=== PATIENT | male | born 1950 | race Caucasian/White ===

== ENCOUNTER 2018-06-11 07:23 | Day surgery (SDC) | payer BC, MEDICARE ==
[2018-06-06 10:14] VITALS: BMI 39.5
[2018-06-11 07:50] VITALS: TEMP 97.9
[2018-06-11] MEDS ORDERED: SODIUM CHLORIDE 0.9% 1,000 ML IV ONE (08:01)
[2018-06-11] MEDS ORDERED: fentaNYL (PF) 50 MCG/ML 2 ML AMP ONE (09:49)
[2018-06-11] MEDS ORDERED: MIDAZOLAM 2 MG/2 ML VIAL ONE (09:49)
[2018-06-11] MEDS ORDERED: BENZOCAINE SPRAY 1 CAN MUCOUS MEM ONE ×3 (10:05→10:51)
[2018-06-11] MEDS ORDERED: MIDAZOLAM 2 MG/2 ML VIAL IVP ONE ×4 (10:54)
[2018-06-11] MEDS ORDERED: fentaNYL (PF) 50 MCG/ML 2 ML AMP IVP ONE ×2 (10:55)
[2018-06-11] MEDS ORDERED: SODIUM CHLORIDE 0.9% 1,000 ML IV SCH (11:30)
[2018-06-11 13:08] VITALS: RESP 16
[2018-06-11 13:10] VITALS: BP 121/67; PULSE 85
--- NOTE | 2018-06-11 18:37 | P.PCN ---
Date of Procedure: 06/11/18 Preoperative Diagnosis: Severe aortic stenosis and regurgitation Postoperative Diagnosis: Moderate to severe aortic stenosis, moderate aortic regurgitation Procedure(s) Performed: FAISAL examination Description of Procedure: INDICATION: This is a 67-year-old gentleman with history of congenital aortic stenosis with bicuspid valve was found to have increasing gradient consistent with severe aortic stenosis. Patient is advised to have FAISAL examination for further evaluation CONSENT:. Informed consent was obtained from the patient and family verbally. PROCEDURE: Patient was brought to the lab in fasting state. He was prepped and draped in the usual fashion. The throat was sprayed with Cetacaine. Patient was given a total of 4 mg of Versed in boluses and also fentanyl 75 g. A lubricated Omni probe was then introduced in the oropharynx and advanced into the esophagus after multiple attempts. Images were obtained both from the esophagus and the stomach. Patient tolerated the procedure well. Saline contrast bubble injections were performed. Color and pulse wave Doppler, and also continuous wave Doppler were done. No immediate complications FINDINGS:. The aortic valve appeared to be calcified and bicuspid. Telemetry showed a valve area about 1.26 cm. There is moderate aortic regurgitation. A peak gradient of 60 with mean of 30 was obtained across the aortic valve. There was no clot in left atrial appendage. The interatrial septum appeared to be intact without any shunt. No Sigmund regurgitation noted across the tricuspid valve. Minimal plaque noted in the aorta and mitral valve showed mitral mitral regurgitation. Left ventricular function appeared to be preserved IMPRESSION: #1. Moderate to severe aortic stenosis. #2. Moderate aortic regurgitation #3. Mild mitral regurgitation. #4. No PFO #5. No clot in the left atrial appendage. #5. Preserved LV function #6. Minimal plaque in the aorta PLAN: Continued medical therapy. Consideration for possible cath.
== END 2018-06-11 12:52 | disposition home or self-care (01) ==
LOC: CATHCVL 07:23
PROVIDERS: ATTEND Internal Medicine Cardiovascular Disease
DX: I08.0 Rheumatic disorders of both mitral and aortic valves (principal); I10 Essential (primary) hypertension; E78.5 Hyperlipidemia, unspecified; Z87.891 Personal history of nicotine dependence; J44.9 Chronic obstructive pulmonary disease, unspecified; E66.9 Obesity, unspecified; Z68.41 Body mass index [BMI] 40.0-44.9, adult; Z79.1 Long term (current) use of non-steroidal anti-inflammatories (NSAID); Z79.899 Other long term (current) drug therapy
CPT/HCPCS: 93312; 93320; 93325; J2250; J3010

== ENCOUNTER → 2018-07-11 | Outpatient (CLI) | payer MEDICARE ==
[2018-07-11 13:33] LABS: HCT 46.3 % (39.0-53.0); HGB 14.9 gm/dL (13.0-17.5); MCH 29.4 pg (25.0-35.0); MCHC 32.3 g/dL (31.0-37.0); MCV 91.1 fL (80.0-100.0); Platelet Count 235 k/uL (150-450); RBC 5.08 m/uL (4.30-5.90); RDW 13.3 % (11.5-15.5)
[2018-07-11 13:52] LABS: Anion Gap 7 mmol/L; Blood Urea Nitrogen 24 mg/dL (9-20); Carbon Dioxide 31 mmol/L (22-30); Chloride 104 mmol/L (98-107); Potassium 5.4 mmol/L (3.5-5.1); Sodium 142 mmol/L (137-145)
== END | disposition home or self-care (01) ==
LOC: LABPAT 12:58
PROVIDERS: ATTEND Internal Medicine Cardiovascular Disease
DX: Z01.812 Encounter for preprocedural laboratory examination (principal); I10 Essential (primary) hypertension; E10.9 Type 1 diabetes mellitus without complications; I35.0 Nonrheumatic aortic (valve) stenosis
CPT/HCPCS: 80051; 82565; 84520; 85027

== ENCOUNTER 2018-07-29 08:33 | Inpatient (IN) | payer MEDICARE ==
[2018-07-18 14:31] VITALS: BMI 41.0
[~2018-07-29 08:33] MED LIST: ALPRAZolam 0.25 MG TAB PO PRN; ALPRAZolam 0.5 MG TAB PO PRN; ASPIRIN 325 MG TAB PO STA; ATORVASTATIN 80 MG TAB PO STA; NITROGLYCERIN SL TABS 0.4 MG TAB SUBLINGUAL PRN; SODIUM CHLORIDE 0.9% 1,000 ML in EMPTY BAG 1 BAG IV ONE
[2018-07-29] MEDS ORDERED: LIDOCAINE 1% INJ 10MG/ML (20 ML MDV) ONE (10:15)
[2018-07-29] MEDS ORDERED: fentaNYL (PF) 50 MCG/ML 2 ML AMP ONE (10:15)
[2018-07-29] MEDS ORDERED: MIDAZOLAM 2 MG/2 ML VIAL IV ONE (10:41)
[2018-07-29] MEDS: fentaNYL (PF) 50 MCG/ML 2 ML AMP IV ONE ×2 (10:41→10:48)
[2018-07-29] MEDS ORDERED: LIDOCAINE 1% INJ 10MG/ML (20 ML MDV) SQ ONE (10:45)
[2018-07-29] MEDS ORDERED: ATROPINE SULFATE 0.1 MG/ML 10ML SYRINGE IV ONE (11:00)
[2018-07-29] MEDS ORDERED: DOPamine DRIP 800 MG in DEXTROSE/WATER 1 500ML.BAG IV ONE (11:01)
[2018-07-29 11:06] LABS: O2 Sat Blood Gas 56.7 %
[2018-07-29 11:08] LABS: O2 Sat Blood Gas 97.3 %
[2018-07-29] MEDS ORDERED: NOREPINEPHRINE 4 MG in SODIUM CHLORIDE 0.9% 250 ML IV ONE (11:12)
[2018-07-29] MEDS ORDERED: IOPAMIDOL-370 125ML BTL INJ ONE (11:38)
[2018-07-29] MEDS ORDERED: RX INFO: IV CONTRAST WAS GIVEN 1 EACH MISC MISCELLANE PRN (12:09)
[2018-07-29] MEDS ORDERED: NAPROXEN 250 MG TAB PO PRN (12:10)
[2018-07-29] MEDS: SODIUM CHLORIDE 0.9% 1,000 ML IV SCH (13:21)
[2018-07-29] MEDS: DOPamine DRIP 800 MG in DEXTROSE/WATER 1 500ML.BAG IV SCH (13:30)
[2018-07-29 15:54] LABS: Glucose,Whole Blood 113 mg/dL (75-99)
[2018-07-30 05:15] LABS: Basophils % (A) 0 %; Eosinophils # (A) 0.2 k/uL (0-0.7); Eosinophils % (A) 2 %; HCT 40.2 % (39.0-53.0); HGB 13.5 gm/dL (13.0-17.5); Lymphocytes # (A) 1.6 k/uL (1.0-4.8); Lymphocytes % (A) 17 %; MCH 29.8 pg (25.0-35.0); MCHC 33.6 g/dL (31.0-37.0); MCV 88.5 fL (80.0-100.0); Mean Platelet Volume 7.5; Monocytes # (A) 0.8 k/uL (0-1.0); Monocytes % (A) 8 %; Neutrophils # (A) 6.7 k/uL (1.3-7.7); Neutrophils % (A) 71 %; Platelet Count 213 k/uL (150-450); RBC 4.54 m/uL (4.30-5.90); RDW 13.4 % (11.5-15.5); WBC 9.5 k/uL (3.8-10.6)
[2018-07-30 05:30] LABS: Anion Gap 8 mmol/L; Blood Urea Nitrogen 21 mg/dL (9-20); Calcium 9.2 mg/dL (8.4-10.2); Carbon Dioxide 28 mmol/L (22-30); Chloride 102 mmol/L (98-107); Glucose 101 mg/dL (74-99); Potassium 4.2 mmol/L (3.5-5.1); Sodium 138 mmol/L (137-145)
[2018-07-30] MEDS: SODIUM CHLORIDE 0.9% 1,000 ML IV SCH (07:12)
[2018-07-30] MEDS: VIT A,C & E-LUTEIN-MINERALS 1 EACH TAB PO SCH (12:09)
[2018-07-30] MEDS: DOPamine DRIP 800 MG in DEXTROSE/WATER 1 500ML.BAG IV SCH (12:09)
[2018-07-30] MEDS: ATORVASTATIN 40 MG TAB PO SCH (12:10)
--- NOTE | 2018-07-30 16:09 | PN ---
PROGRESS NOTE Ari presented to hospital for an outpatient catheterization for aortic stenosis, became vasovagal and dropped his blood pressure and heart rate yesterday and required dopamine. This morning, he is doing well. Off dopamine and free of symptoms. Surgeon had evaluated the patient and the plan at this stage is to perform an IVUS to rule out significant left main stenosis prior to surgery. The patient is otherwise on Crestor 20 mg daily, lisinopril 10 mg daily, hydrochlorothiazide, and aspirin. He has been started on Lipitor. EXAM: He is comfortable at rest. Vital signs are stable. Chest exam reveals good air entry bilaterally. Heart exam reveals first and second heart sounds. Ejection systolic murmur in the aortic area. Abdomen is soft. Exam of extremities did not reveal edema. Peripheral pulses are felt. The groin is free of bleeding, bruit or hematoma. LABORATORY DATA: Hemoglobin is 13.5, platelet count is 213. Potassium is 4.2 creatinine is 0.83. ASSESSMENT: 1. Severe aortic stenosis. 2. Coronary artery disease, rule out significant left main stenosis. PLAN: The patient will have aortic valve replacement once the IVUS is done to rule out significant left main stenosis. In the meantime, I am going to transfer him out of ICU. MMODL / IJN: [id number] /
--- NOTE | 2018-07-30 16:55 | P.GSCN ---
History of Present Illness Consult date: 07/30/18 Reason for Consult: Left main disease, severe aortic stenosis. Requesting physician: Cj Leach History of present illness: This is a 67-year-old gentleman who is followed by Dr. Don on an outpatient basis. He has a past medical history significant for known aortic stenosis, hypertension, hyperlipidemia, chronic obstructive pulmonary disease, obesity and remote history of tobacco abuse quit 4 years ago. The patient has been following with Dr. Leach from [facility] for no one aortic valve stenosis. Recently, the patient has had complaints of progressive exertional shortness of breath. He denies any complaints of chest pain, nausea , vomiting, palpitations, syncope or near syncope. On 06/11/2018 the patient underwent a transesophageal echocardiogram which showed a calcified bicuspid aortic valve, an aortic valve area measuring 1.26 cm, moderate aortic valve regurgitation, a peak gradient across his aortic valve of 60 mmHg with a mean gradient of 30 mmHg, mild mitral valve regurgitation and a left ventricular function to be preserved. Subsequently due to the patient's complaints of progressive shortness of breath and his transesophageal echocardiogram results he was recommended to undergo an elective cardiac catheterization. The patient was brought into the hospital for elective cardiac catheterization and after obtaining consent was taken to the cardiac catheterization lab where Dr. Dr. Leach performed a coronary angiogram which showed a questionable lesion to his left main coronary artery and a 70-80% stenosis to his obtuse marginal coronary artery. Due to the patient's symptoms of shortness of breath, transesophageal echocardiogram and cardiac catheterization results a consult was placed to Dr. Mag Enriquez from cardiothoracic surgery to evaluate the patient for myocardial revascularization and aortic valve surgery recommendations. Review of Systems A 14 point review of systems was completed and was negative except as mentioned in the HPI. Past Medical History Past Medical History: Hyperlipidemia, Hypertension Additional Past Medical History / Comment(s): Moderate to severe aortic valve stenosis with a peak gradient of 60 mmHg and a mean gradient of 30 mmHg across the aortic valve and moderate aortic valve regurgitation. Morbid obesity with a BMI of 43.4 kg/m History of Any Multi-Drug Resistant Organisms: None Reported Past Surgical History: Orthopedic Surgery Additional Past Surgical History / Comment(s): ORIF LEFT ANKLE, LACERATION REPAIR OF LEFT FOREARM, RT BREAST I&D, FAISAL 06/11/18, COLONOSCOPY Past Anesthesia/Blood Transfusion Reactions: No Reported Reaction Past Psychological History: No Psychological Hx Reported Smoking Status: Former smoker Past Alcohol Use History: None Reported Additional Past Alcohol Use History / Comment(s): QUIT SMOKING JUN 2014,SMOKED 2 PPD FOR 40 YRS Past Drug Use History: None Reported - Past Family History Mother Family Medical History: Cancer Additional Family Medical History / Comment(s): MOTHER HAD LUNG CANCER Father Family Medical History: No Reported History Medications and Allergies Home Medications Medication Instructions Recorded Confirmed Type Naproxen Sodium [Aleve] 220 mg PO Q12HR PRN 07/07/14 07/29/18 History Hydrochlorothiazide 12.5 mg PO DAILY 06/16/15 07/29/18 History Lisinopril 10 mg PO QAM 06/16/15 07/29/18 History Rosuvastatin Calcium [Crestor] 20 mg PO DAILY 06/16/15 07/29/18 History Vit C/E/Zn/Coppr/Lutein/Zeaxan 1 cap PO DAILY 06/16/15 07/29/18 History [Preservision Areds 2 Softgel] Aspirin 325 mg PO ONCE 07/29/18 07/29/18 History Allergies Allergy/AdvReac Type Severity Reaction Status Date / Time No Known Allergies Allergy Verified 07/29/18 15:26 Surgical - Exam Vital Signs Temp Pulse Resp BP Pulse Ox 97.8 F 83 20 168/76 95 07/29/18 09:13 07/29/18 09:13 07/29/18 09:13 07/29/18 09:13 07/29/18 09:13 - General well developed, well nourished, no distress, no pain, obese - Eyes PERRL, normal ocular movement - ENT normal pinna, normal nares, normal mucosa, no hearing loss, no congestion - Neck Neck is supple, no lymphadenopathy. no masses, no bruits, trachea midline, no venous distension - Respiratory Lung sounds with some expiratory wheezes throughout, diminished to his bilateral bases. Respirations are symmetrical and nonlabored. Oxygen saturation are 95% on room air. - Cardiovascular Regular rhythm and rate. S1-S2 present, positive systolic ejection murmur 2/6. No edema present. Remote telemetry showing normal sinus rhythm heart rate 87. - Abdomen Abdomen is soft, nontender and nondistended. Active bowel sounds all 4 abdominal quadrants. No organomegaly. No guarding or rigidity. - Genitourinary Deferred - Rectum Deferred - Integumentary no rash, no growths, no abnormal pigmentation - Neurologic normal coordination, normal sensation - Musculoskeletal normal gait, normal posture - Psychiatric oriented to time, oriented to person, oriented to place, speech is normal Results - Labs 07/30/18 04:39 07/30/18 04:39 Abnormal Lab Results - Last 24 Hours (Table) 07/30/18 Range/Units 04:39 BUN 21 H (9-20) mg/dL Glucose 101 H (74-99) mg/dL Diabetes panel 07/30/18 Range/Units 04:39 Sodium 138 (137-145) mmol/L Potassium 4.2 (3.5-5.1) mmol/L Chloride 102 (98-107) mmol/L Carbon Dioxide 28 (22-30) mmol/L BUN 21 H (9-20) mg/dL Creatinine 0.83 (0.66-1.25) mg/dL Glucose 101 H (74-99) mg/dL Calcium 9.2 (8.4-10.2) mg/dL Calcium panel 07/30/18 Range/Units 04:39 Calcium 9.2 (8.4-10.2) mg/dL Pituitary panel 07/30/18 Range/Units 04:39 Sodium 138 (137-145) mmol/L Potassium 4.2 (3.5-5.1) mmol/L Chloride 102 (98-107) mmol/L Carbon Dioxide 28 (22-30) mmol/L BUN 21 H (9-20) mg/dL Creatinine 0.83 (0.66-1.25) mg/dL Glucose 101 H (74-99) mg/dL Calcium 9.2 (8.4-10.2) mg/dL Adrenal panel 07/30/18 Range/Units 04:39 Sodium 138 (137-145) mmol/L Potassium 4.2 (3.5-5.1) mmol/L Chloride 102 (98-107) mmol/L Carbon Dioxide 28 (22-30) mmol/L BUN 21 H (9-20) mg/dL Creatinine 0.83 (0.66-1.25) mg/dL Glucose 101 H (74-99) mg/dL Calcium 9.2 (8.4-10.2) mg/dL - Imaging Comments: Transesophageal echocardiogram and cardiac catheterization results were reviewed by Dr. Enriquez and discussed with Dr. Leach. Assessment and Plan (1) Hypertension Current Visit: Yes Status: Acute Code(s): I10 - ESSENTIAL (PRIMARY) HYPERTENSION SNOMED Code(s): 44632041 (2) Hyperlipidemia Current Visit: Yes Status: Acute Code(s): E78.5 - HYPERLIPIDEMIA, UNSPECIFIED SNOMED Code(s): 35726311 (3) Morbid obesity Current Visit: Yes Status: Acute Code(s): E66.01 - MORBID (SEVERE) OBESITY DUE TO EXCESS CALORIES SNOMED Code(s): 366019367 (4) Aortic valve stenosis Current Visit: Yes Status: Acute Code(s): I35.0 - NONRHEUMATIC AORTIC (VALVE ) STENOSIS SNOMED Code(s): 44354562 (5) Coronary artery disease Current Visit: Yes Status: Acute Code(s): I25.10 - ATHSCL HEART DISEASE OF [place] CORONARY ARTERY W/O ANG PCTRS SNOMED Code(s): 25650524 (6) COPD (chronic obstructive pulmonary disease) Current Visit: No Status: Acute Code(s): J44.9 - CHRONIC OBSTRUCTIVE PULMONARY DISEASE, UNSPECIFIED SNOMED Code(s): 95764336 Plan: The patient was seen and examined. His chart and diagnostics were reviewed. Dr. Enriquez met with the patient and his and discussed the findings of the cardiac catheterization and transesophageal echocardiogram results. For further evaluation the patient will undergo a cardiac catheterization with IVUS tomorrow 07/31/2018 to determine if he has a significant blockage to his left main coronary artery. Continue GI and DVT prophylaxis. Continue to maximize medical management, aspirin, statin. Cardiology recommendations per Dr. Dr. Leach. More recommendations to follow based on patient's clinical course and a cardiac catheterization results with IVUS. Thank you Dr. Leach for this consult and we look forward to working with you in the care of your patient. Time with Patient: Greater than 30
[2018-07-30] MEDS ORDERED: SODIUM CHLORIDE 0.9% 1,000 ML BAG ONE (19:45)
[2018-07-30] MEDS ORDERED: ACETAMINOPHEN TAB 500 MG TAB PO PRN (21:57)
--- NOTE | 2018-07-31 03:13 | CONS ---
CONSULTATION DATE OF CONSULTATION: July 30, 2018. REASON FOR CONSULTATION: Medical management requested by Dr. Leach. CONSULTATION: This is a pleasant 67-year-old patient of Dr. Don. Chronic stable medical conditions include hypertension, hyperlipidemia, aortic stenosis, aortic regurgitation, obesity. The patient is in the process of getting worked up, was supposed to have a cardiac cath by Dr. Leach and the patient did become hypotensive, bradycardic. The patient did require dopamine, was admitted to the ICU. Subsequently, the patient's parameters stabilized and he was taken off the dopamine. It was unclear if the patient had any significant stenosis in the left main and cardiothoracic was consulted for the same. The patient does get short of breath with exertion and was a smoker in the past. Denies any edema. No orthopnea. Currently symptom-free. Lying in bed. REVIEW OF SYSTEMS: CONSTITUTIONAL: Tired. HEENT: None. RESPIRATORY: Occasional wheezing. CARDIOVASCULAR: No chest pain. GASTROINTESTINAL: None. GASTROINTESTINAL: None. MUSCULOSKELETAL: Aches and pains in different joints. DERMATOLOGICAL, HEMATOLOGIC, LYMPHATIC: none. PSYCHIATRY none. NEUROLOGICAL: None. PAST MEDICAL HISTORY: Of hypertension, hyperlipidemia, aortic stenosis, aortic regurgitation. PAST SURGICAL HISTORY: ORIF left ankle, laceration to the left forearm, right breast I&D. SOCIAL HISTORY: Patient smoked about 2 packs a day for 40 years, stopped in 2013. No alcohol. . Retired from [employer]. FAMILY HISTORY: Mother had lung cancer. HOME MEDICATIONS: 1. PreserVision 2 soft gel 1 capsule p.o. daily. 2. Crestor 20 mg p.o. daily. 3. Naproxen 220 mg q.12h p.r.n. 4. Lisinopril 10 mg p.o. daily. 5. Hydrochlorothiazide 12.5 p.o. daily. 6. Aspirin. ALLERGIES: None. PHYSICAL EXAMINATION: VITAL SIGNS: Temperature 98.6, pulse 92, respirations 18, blood pressure 133/88. Pulse ox 94 percent on room air. GENERAL APPEARANCE: Well built, BMI 43.4, lying in bed, awake. EYES: Pupils equal. Conjunctivae normal. HEENT: External appearance of nose and ears normal. Oral cavity normal. NECK: JVD not raised. Mass not palpable. RESPIRATORY: Effort normal. LUNGS: Decreased breath sounds. Minimal wheezing. CARDIOVASCULAR: First and second sounds. No edema. ABDOMEN: Soft, nontender. Liver and spleen not palpable. LYMPHATICS: No lymph nodes palpable in the neck and axillae. PSYCHIATRY: Alert and oriented x3. Mood and affect normal. NEUROLOGICAL: Pupils equal. Cranial nerves grossly intact. Power and sensation grossly intact. MUSCULOSKELETAL: Evidence of osteoarthritis especially in the hands. INVESTIGATIONS: White count 9.5, hemoglobin 13.5, potassium 4.2, BUN 21, creatinine 0.83. ASSESSMENT: 1. Moderate aortic stenosis, aortic regurgitation nonrheumatic. 2. Morbid obesity BMI more than 40. 3. Essential hypertension. 4. Hyperlipidemia. 5. Primary osteoarthritis especially of the hands. 6. Chronic obstructive pulmonary disease in an ex-smoker. PLAN: The patient is being scheduled for IVUS tomorrow. Given a strong suspicion for coronary artery disease. Patient NSAIDs will be discontinued. Aspirin as per Cardiology. Care was discussed with the patient. Questions were answered. The patient will be started on DuoNeb. The patient should see a dietitian/PCP for weight loss measures. Questions were answered. Thank you Dr. Leach. Copy to Dr. Don. MMBONNYL / IJN: [id number] /
[2018-07-31 05:40] LABS: HGB 13.8 gm/dL (13.0-17.5); MCH 29.8 pg (25.0-35.0); MCHC 32.9 g/dL (31.0-37.0); MCV 90.5 fL (80.0-100.0); Mean Platelet Volume 7.6; Platelet Count 208 k/uL (150-450); RBC 4.64 m/uL (4.30-5.90); RDW 13.3 % (11.5-15.5); WBC 8.1 k/uL (3.8-10.6)
[2018-07-31 06:01] LABS: Anion Gap 10 mmol/L; Blood Urea Nitrogen 20 mg/dL (9-20); Calcium 9.4 mg/dL (8.4-10.2); Carbon Dioxide 25 mmol/L (22-30); Chloride 104 mmol/L (98-107); Glucose 105 mg/dL (74-99); Potassium 4.3 mmol/L (3.5-5.1); Sodium 139 mmol/L (137-145)
[2018-07-31] MEDS: IPRATROPIUM-ALBUTEROL 3 ML NEB INHALATION SCH ×4 (08:24→19:45)
[2018-07-31] MEDS: ATORVASTATIN 40 MG TAB PO SCH (08:51)
[2018-07-31] MEDS: VIT A,C & E-LUTEIN-MINERALS 1 EACH TAB PO SCH (08:51)
[2018-07-31] MEDS: SODIUM CHLORIDE 0.9% 1,000 ML IV SCH ×2 (08:55→23:29)
--- NOTE | 2018-07-31 08:56 | P.PN ---
Subjective Progress Note Date: 07/31/18 Principal diagnosis: Severe aortic stenosis with bicuspid aortic valve, coronary artery disease with possible left main disease. Previous medical history of hypertension, hyperlipidemia, COPD, obesity, remote tobacco dependence. Patient is currently lying in bed in no acute distress. Denies pain, shortness of breath. No new questions at this time. Anticipating return to the Utilization Review Nurse today for IVUS. Objective - Vital Signs Vital signs: Vital Signs Temp 98.2 F 07/31/18 04:00 Pulse 68 07/31/18 04:00 Resp 22 07/31/18 04:00 BP 137/84 07/31/18 04:00 Pulse Ox 94 L 07/31/18 04:00 Intake & Output 07/30/18 07/31/18 07/31/18 18:59 06:59 18:59 Intake Total 420 600 Output Total 1850 1000 Balance -1430 -400 Weight 129 kg Intake: IV 600 Sodium Chloride 0.9% 1, 600 000 ml @ 75 mls/hr IV . [id number] TAYO Rx#:[id number] Oral 420 Output: Urine 1850 1000 Other: Voiding Method Urinal Urinal # Voids 1 - Constitutional General appearance: Present: cooperative, no acute distress, obese - Respiratory Details: Lungs sounds diminished bilaterally. Respirations even, nonlabored. Currently on room air with oxygen saturation 94%. - Cardiovascular Details: S1, S2 present. Positive systolic murmur. Regular rate and rhythm, sinus rhythm to sinus bradycardia on telemetry. Palpable peripheral pulses bilaterally. No edema present. No calf pain or tenderness noted. - Gastrointestinal Gastrointestinal Comment(s): Abdomen soft, nontender, nondistended, obese. Active bowel sounds present 4 quadrants. Tolerating diet, currently nothing by mouth for Utilization Review Nurse. - Genitourinary Genitourinary Comment(s): Continues to void clear, yellow urine. - Integumentary Integumentary Comment(s): Skin is warm and dry with evidence of good perfusion. - Neurologic Neurologic: Present: CNII-XII intact - Musculoskeletal Musculoskeletal: Present: gait normal, strength equal bilaterally - Psychiatric Psychiatric: Present: A&O x's 3, appropriate affect, intact judgment & insight - Allied health notes Allied health notes reviewed: nursing - Labs CBC & Chem 7: 07/31/18 04:35 07/31/18 04:35 Labs: Abnormal Lab Results - Last 24 Hours (Table) 07/31/18 Range/Units 04:35 Glucose 105 H (74-99) mg/dL Assessment and Plan (1) Aortic valve stenosis Current Visit: Yes Status: Chronic Code(s): I35.0 - NONRHEUMATIC AORTIC ( VALVE) STENOSIS SNOMED Code(s): 32834925 (2) Coronary artery disease Current Visit: Yes Status: Chronic Code(s): I25.10 - ATHSCL HEART DISEASE OF [place] CORONARY ARTERY W/O ANG PCTRS SNOMED Code(s): 09630645 (3) Hyperlipidemia Current Visit: Yes Status: Chronic Code(s): E78.5 - HYPERLIPIDEMIA, UNSPECIFIED SNOMED Code(s): 96572806 (4) Hypertension Current Visit: Yes Status: Chronic Code(s): I10 - ESSENTIAL (PRIMARY) HYPERTENSION SNOMED Code(s): 03210387 (5) Morbid obesity Current Visit: Yes Status: Chronic Code(s): E66.01 - MORBID (SEVERE) OBESITY DUE TO EXCESS CALORIES SNOMED Code(s): 684506349 (6) COPD (chronic obstructive pulmonary disease) Current Visit: Yes Status: Chronic Code(s): J44.9 - CHRONIC OBSTRUCTIVE PULMONARY DISEASE, UNSPECIFIED SNOMED Code(s): 19003791 (7) Tobacco dependence in remission Current Visit: No Status: Resolved Code(s): F17.201 - NICOTINE DEPENDENCE, UNSPECIFIED, IN REMISSION SNOMED Code(s): 671295360 Plan: 1. Patient will need aortic valve replacement. Will await IVUS results to determine if he needs coronary artery bypass in as well. 2. Continue to maximize medical therapy with aspirin, statin. 3. Preoperative teaching initiated, continue to reinforce. 4. Will initiate preoperative testing once results of IVUS are known. 5. Cardiology management per Dr. Leach, primary care management per Dr. Sexton. 6. More recommendations to follow. Time with Patient: Greater than 30
[2018-07-31] MEDS ORDERED: SODIUM CHLORIDE 0.9% 1,000 ML in EMPTY BAG 1 BAG IV ONE (09:26)
[2018-07-31] MEDS ORDERED: ASPIRIN 325 MG TAB PO STA (09:30)
[2018-07-31] MEDS ORDERED: LIDOCAINE 1% INJ 10MG/ML (20 ML MDV) ONE (09:47)
[2018-07-31] MEDS ORDERED: ASPIRIN 325 MG TAB ONE (09:50)
[2018-07-31] MEDS ORDERED: ASPIRIN 325 MG TAB PO ONE (09:52)
[2018-07-31] MEDS ORDERED: IV FLUID CONTINUATION 300 ML IV ONE (09:55)
[2018-07-31] MEDS ORDERED: SODIUM CHLORIDE 0.9% 1,000 ML IV ONE (09:58)
[2018-07-31] MEDS ORDERED: MIDAZOLAM 2 MG/2 ML VIAL IVP ONE (10:24)
[2018-07-31] MEDS ORDERED: HEPARIN SODIUM 1,000 UN/ML (10ML VL) ONE (10:27)
[2018-07-31] MEDS: LIDOCAINE 1% INJ 10MG/ML (20 ML MDV) SQ ONE ×2 (10:27→11:26)
[2018-07-31] MEDS ORDERED: fentaNYL (PF) 50 MCG/ML 2 ML AMP ONE (10:31)
[2018-07-31] MEDS: fentaNYL (PF) 50 MCG/ML 2 ML AMP IV ONE ×2 (10:32→11:24)
[2018-07-31] MEDS: NITROGLYCERIN 1000MCG/10ML SYRINGE INTRACORON ONE ×4 (10:35→11:27)
[2018-07-31] MEDS ORDERED: HEPARIN SODIUM 1,000 UN/ML (10ML VL) IV ONE (10:38)
[2018-07-31] MEDS ORDERED: IOPAMIDOL-370 100ML BTL INJ ONE ×2 (11:17→11:25)
[2018-07-31] MEDS ORDERED: ATROPINE SULFATE 0.1 MG/ML 10ML SYRINGE IVP ONE ×2 (11:34)
--- NOTE | 2018-07-31 11:53 | P.CARDCATH ---
Date of Procedure: 07/29/18 Preoperative Diagnosis: Moderate to severe aortic stenosis. Rule out coronary artery disease Postoperative Diagnosis: The same Procedure(s) Performed: Left heart catheterization without left ventriculography and also right heart catheterization. Description of Procedure: T HISTORY: This is a 67-year-old gentleman with history of aortic stenosis was found to have evidence of moderate to severe aortic stenosis. Recently patient was found to have increasing gradient across the aortic valve. A FAISAL examination was performed which revealed an valve area of about 1.2 cm with a peak gradient of 60 and mean of about 30 suggestive of severe aortic stenosis. Patient has been complaining of exertional shortness of breath. In view of that patient is advised to have cardiac catheterization to assess and the aortic stenosis and also to rule out any concomitant coronary artery disease.] CONSENT:I have discussed the risks, benefits and alternative therapies for the above-mentioned procedure and for both sedation/analgesia as well as necessary blood product administration, if indicated, as they pertain to this patient. The patient has indicated understanding and acceptance of the risks and procedures discussed. PROCEDURE: Right heart catheterization: Patient was prepped and draped in the usual fashion. The right groin is infiltrated with lidocaine. Right femoral vein was entered using Seldinger technique and a 6-Bulgarian sheath was left in place. Right heart catheterization was performed using Yomi catheters. Patient tolerated the procedure well. : Left heart catheterization: Patient was brought to the lab in a fasting state. Patient was given some IV sedation. The right groin is infiltrated with lidocaine and right femoral artery was entered using Seldinger technique. A 6-Bulgarian catheter was left in place and selective coronary arteriography was performed. Attempts were made to cross the aortic valve which were unsuccessful. Patient tolerated the procedure well except patient becomes hypotensive and bradycardic secondary to vasovagal reaction Femoral angiogram was performed and Angio-Seal was applied for hemostasis. Patient became hypotensive after giving IV sedation and also introduction of the femoral sheaths. It was felt that patient was having vasovagal reaction. Patient was also complaining of pain in the left arm and moaning and groaning. Patient was given IV fluids, IV dopamine and also Levophed for blood pressure support. Patient became hemodynamically stable after the above interventions. 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 Patient ever had any EKG changes, her chest pains. Conscious Sedation: Versed 1 mg Fentanyl 50 g Duration 50 minutes HEMODYNAMICS: Right heart catheterization: Right atrial pressure was 5-10. Right ventricular pressure is about 40/6. Pulmonary artery pressure was about 40/10 and pulmonary wedge pressure was about 10-12. The cardiac output by thermodilution method was 3.67 and by Jeimy method was 3.41. Left heart catheterization: The arterial pressure was about 140/70 initially. Patient subsequently became hypotensive with systolic blood pressures of 60-70. The after IV fluids and IV dopamine and also Levophed the pressures came up. The aortic valve could not be crossed SELECTIVE CORONARY ARTERIOGRAPHY: LEFT MAIN: Short. There is ventricularization of the pressures upon engagement of the left main. There appears to be eccentric 50-60 % stenosis of the left main. However spasm cannot be excluded. THE LEFT ANTERIOR DESCENDING CORONARY ARTERY: This is a moderate caliber vessel giving rise to 2 diagonal branches and septal branches. There appears to be total occlusion of the distal LAD. There are collaterals from the right to the LAD THE LEFT CIRCUMFLEX AND IS CORONARY ARTERY: This is a moderate caliber vessel giving rise to a high OM branch. The OM branch has about 70% stenosis in the midportion THE RIGHT CORONARY ARTERY:. This is a good caliber vessel with about 30-40% plaque in the proximal portion. He uses good-sized PDA and PLV branches and also provides collaterals to the LAD LEFT VENTRICULOGRAPHY: Not performed FINAL IMPRESSION:. #1. Coronary artery disease with about 50-50% stenosis of the left main. The possibility of the spasm cannot be excluded. Needs to have IVUS for further evaluation #2. About 70% stenosis of the OM branch #3. There appears to be total occlusion of the mid LAD with collateral from the right coronary system #4. Moderate to severe aortic stenosis by FAISAL examination associated with moderate aortic regurgitation PLAN: IVUS of the left main for further evaluation. He will the left main disease is significant, patient will need bypass surgery with the graft to the LAD diagonal OM branch and distal circumflex and the aortic valve replacement PROGNOSIS: Guarded
--- NOTE | 2018-07-31 12:28 | CC ---
CARDIAC CATHETERIZATION REPORT DATE OF SERVICE: 07/31/2018 PROCEDURE: 1. Coronary angiography. 2. Intravascular ultrasound of left main and ramus intermedius. PERFORMED BY: Dr. Marii Van. Moderate conscious sedation time was 64 minutes. Patient was administered fentanyl, Versed and his oxygen saturation, hemodynamics and EKG were monitored closely. CLINICAL INFORMATION: Mr. Ari Johnson is a gentleman with history of hypertension, bicuspid aortic valve with moderate aortic stenosis, who underwent cardiac cath 48 hours ago. There was a question of left main lesion. He did have a significant lesion in the ramus intermedius and there were some collaterals going to the distal LAD, which was somewhat unclear. He was advised to have coronary angiography and more importantly an IVUS to assess the left main lesion with regards to decision for surgery. I saw the patient and family yesterday and discussed with them at length the rationale, risks, benefits, options. They understood all details and wished to proceed with the procedure. PROCEDURE NOTE: Under local anesthesia and strict aseptic precautions, a 6-Vietnamese introducer was placed in the right femoral artery. I used a JL4 short tip guide catheter of 6-Vietnamese caliber to cannulate the left coronary artery. There was no damping noted. I performed initial injections, which did not reveal that the left main was significant. There was no more than 20% distal left main lesion. I then advanced under fluoroscopic guidance after administration of 5000 units of heparin and intracoronary nitroglycerin and a run- through wire was advanced and positioned in the distal portion of the ramus intermedius and an intravascular ultrasound was performed of both the ramus and the left main vessels. I then noted that the left main lesion was significant with a minimal area in the left main distally of about 2.8 millimeter square. There was also a significant lesion in the midportion of the ramus as well. This was about 1.6 to 1.7 millimeter square. I then performed selective coronary angiography of the right coronary artery and noted that there was collaterals going in the LAD distribution. I went back and retook the pictures of LAD with somewhat of a long injection. This suggested that there was a total occlusion of mid LAD that was filling by collaterals from the RCA. The patient tolerated the procedure well, but towards the end after I took the sheath out and placed a Perclose device to secure hemostasis. He had good hemostasis but went on to become vasovagal requiring some IV fluids and atropine. The blood pressure came back to 120/70, heart rate was in the 80s and he was back to normal. He was sent to the room in a stable condition. Findings were discussed in detail with the patient and and he will require surgery because of the branch of the left main including LAD, ramus and circumflex as well. CORONARY ANGIOGRAPHY FINDINGS: Left Main Coronary Artery: This had a significant stenosis based on IVUS of up to 60%. It bifurcated into LAD and circumflex and the circumflex gave off a high obtuse marginal which almost looks like a ramus intermedius. There was a significant stenosis involving the ramus intermedius of about 80%. The LAD in the midportion was occluded after septal and diagonal branch. It appears that beyond the total occlusion, LAD is a small caliber vessel which was seen coming as a collateral from the RCA. Circumflex did not have any significant disease after the high obtuse marginal/ramus, which has a significant lesion. The [place] RCA was also injected with a diagnostic catheter and this revealed a plaque of about 40% in the proximal portion. Distally it was a large vessel, which bifurcated into PDA, PLV, and provides collaterals to the distal LAD. RECOMMENDATIONS: Given the significant left main and total occlusion of mid LAD, I am recommending aortocoronary bypass surgery to LAD, circumflex and ramus intermedius, which has an independent lesion. RCA does not need to be grafted. Findings were discussed with the patient and and he was sent to the room in a stable condition. MMODL / IJN: [id number] / MTDD
[2018-07-31] MEDS: METOPROLOL TARTRATE 12.5 MG TAB PO SCH ×2 (12:54→20:43)
--- NOTE | 2018-07-31 16:49 | PN ---
PROGRESS NOTE DATE OF SERVICE: July 31, 2018. PRESENTING COMPLAINT: Tired. INTERVAL HISTORY: This patient with multiple medical problems initially came for cardiac catheterization, had a repeat cardiac catheterization by Dr. Marii Van today. Found to have significant coronary artery disease, now pending a consultation by Cardiothoracic for further evaluation. The patient has known aortic stenosis and regurgitation. Lying in bed, stable. Breathing is stable. REVIEW OF SYSTEMS: Done for constitutional, cardiovascular, GI, pulmonary; relevant findings as above. CURRENT MEDICATIONS: Reviewed that include aspirin, DuoNeb, Lipitor, Lopressor. PHYSICAL EXAMINATION: VITAL SIGNS: Temperature 98, pulse 90, respiration 21, blood pressure 125/81, pulse ox 94 percent on room air. GENERAL APPEARANCE: Lying in bed, awake. EYES: Pupils are equal. Conjunctivae normal. NECK: JVD not raised. Mass not palpable. RESPIRATORY: Effort increased. LUNGS: Decreased breath sounds, minimal wheezing. CARDIOVASCULAR: First and second sounds normal. No edema. Systolic murmur. ABDOMEN: Soft, nontender. Liver and spleen not palpable. PSYCHIATRY: Alert and oriented x3. Mood and affect normal. INVESTIGATIONS: White count 8.1, hemoglobin 13.8, potassium 4.3. BUN and creatinine is normal. ASSESSMENT: 1. Moderate aortic stenosis and aortic regurgitation nonrheumatic. 2. Coronary artery disease per cardiac cath. Awaiting evaluation for coronary bypass. 3. Morbid obesity, BMI more than 40. 4. Essential hypertension. 5. Hyperlipidemia. 6. 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 7. Chronic obstructive pulmonary disease in an ex-smoker. PLAN: Care was discussed with the patient. Await further evaluation by Cardiothoracic surgery. Follow. MMODL / IJN: [id number] /
[2018-07-31 18:29] LABS: Appearance,Urine Clear (Clear); Bilirubin,Urine Negative (Negative); Blood,Urine Negative (Negative); Color,Urine Light Yellow; Glucose,Urine (UA) Negative (Negative); Ketones,Urine Negative (Negative); Leukocyte Esterase,Urine Negative (Negative); Nitrite,Urine Negative (Negative); PH, Urine 7.5 (5.0-8.0); Protein,Urine Negative (Negative); Specific Gravity,Urine 1.018 (1.001-1.035); Urobilinogen,Urine <2.0 mg/dL (<2.0)
--- NOTE | 2018-07-31 20:26 | XR ---
EXAMINATION TYPE: XR chest 2V DATE OF EXAM: 07/31/2018 COMPARISON: NONE HISTORY: Preop cardiac surgery TECHNIQUE: Frontal and lateral views of the chest are obtained. FINDINGS: There is no heart failure nor confluent pneumonic infiltrate. Costophrenic angles are kelle r. There are chest leads. Bony thorax is intact. IMPRESSION: No active cardiopulmonary disease. Normal heart.
--- NOTE | 2018-07-31 20:40 | US ---
EXAMINATION TYPE: US carotid duplex BILAT DATE OF EXAM: 07/31/2018 COMPARISON: NONE CLINICAL HISTORY: preop cardiac surgery. Pre op [place]. EXAM MEASUREMENTS: RIGHT: Peak Systolic Velocity (PSV) cm/sec ----- Right CCA: 75.5 ----- Right ICA: 82.0 ----- Right ECA: 116.1 ICA/CCA ratio: 1.1 RIGHT: End Diastole cm/sec ----- Right CCA: 18.1 ----- Right ICA: 27.3 ----- Right ECA: 29.4 LEFT: Peak Systolic Velocity (PSV) cm/sec ----- Left CCA: 80.6 ----- Left ICA: 90.3 ----- Left ECA: 96.8 ICA/CCA ratio: 1.1 LEFT: End Diastole cm/sec ----- Left CCA: 20.8 ----- Left ICA: 30.5 ----- Left ECA: 22.5 VERTEBRALS (direction of flow): Right Vertebral: Antegrade Left Vertebral: Antegrade Rhythm: Normal No significant stenosis seen IMPRESSION: There is antegrade flow in the vertebral arteries. The images measurements suggest less than 20% stenosis in both internal carotid arteries. Criteria for Assigning % of Stenosis / Diameter reduction (Estimation based on the indirect measurements of the internal carotid artery velocities (ICA PSV). 1. Normal (no stenosis)=ICA PSV < 125 cm/s: ratio < 2.0: ICA EDV<40 cm/s. 2. Less than 50% stenosis=ICA PSV < 125 cm/s: ratio < 2.0: ICA EDV<40 cm/s. 3. 50 to 69% stenosis=ICA PSV of 125 to 230 cm/s: ration 2.0 ? 4.0: ICA EDV 40-100 cm/s. 4. Greater than 70% stenosis to near occlusion= ICA PSV > 230 cm/s: ratio > 4.0: ICA EDV > 100 cm/s. 5. Near occlusion= ICA PSV velocities may be low or undetectable: variable ratio and ICA EDV. 6. Total occlusion=unable to detect flow.
[2018-08-01 04:39] VITALS: TEMP 98.2
[2018-08-01 06:07] LABS: Basophils % (A) 1 %; Eosinophils # (A) 0.5 k/uL (0-0.7); Eosinophils % (A) 6 %; HCT 39.7 % (39.0-53.0); Lymphocytes # (A) 1.6 k/uL (1.0-4.8); Lymphocytes % (A) 22 %; MCH 29.6 pg (25.0-35.0); MCHC 32.7 g/dL (31.0-37.0); MCV 90.5 fL (80.0-100.0); Mean Platelet Volume 7.4; Monocytes # (A) 0.5 k/uL (0-1.0); Monocytes % (A) 7 %; Neutrophils # (A) 4.6 k/uL (1.3-7.7); Neutrophils % (A) 62 %; Platelet Count 178 k/uL (150-450); RBC 4.38 m/uL (4.30-5.90); RDW 13.2 % (11.5-15.5); WBC 7.4 k/uL (3.8-10.6)
[2018-08-01 06:34] LABS: ALT 41 U/L (21-72); AST 29 U/L (17-59); Albumin 3.7 g/dL (3.5-5.0); Alkaline Phosphatase 50 U/L (38-126); Anion Gap 6 mmol/L; Blood Urea Nitrogen 20 mg/dL (9-20); Calcium 9.2 mg/dL (8.4-10.2); Carbon Dioxide 26 mmol/L (22-30); Chloride 107 mmol/L (98-107); Cholesterol 182 mg/dL (<200); Glucose 114 mg/dL (74-99); HDL Cholesterol 45 mg/dL (40-60); LDL Cholesterol,Calculated 96 mg/dL (0-99); Magnesium 2.1 mg/dL (1.6-2.3); Phosphorus 4.3 mg/dL (2.5-4.5); Sodium 139 mmol/L (137-145); Total Bilirubin 0.6 mg/dL (0.2-1.3); Total Protein 6.3 g/dL (6.3-8.2); Triglycerides 203 mg/dL (<150)
[2018-08-01 08:09] VITALS: BP 133/69; RESP 24
[2018-08-01] MEDS: ATORVASTATIN 40 MG TAB PO SCH (08:13)
[2018-08-01] MEDS: METOPROLOL TARTRATE 12.5 MG TAB PO SCH (08:13)
[2018-08-01] MEDS: VIT A,C & E-LUTEIN-MINERALS 1 EACH TAB PO SCH (08:13)
[2018-08-01] MEDS: IPRATROPIUM-ALBUTEROL 3 ML NEB INHALATION SCH ×2 (08:19→11:54)
[2018-08-01] MEDS ORDERED: ASPIRIN 81 MG PO SCH (09:00)
[2018-08-01] MEDS ORDERED: LOSARTAN 25 MG TAB PO SCH (09:00)
[2018-08-01 09:17] VITALS: PULSE 77
--- NOTE | 2018-08-01 11:05 | P.DS ---
Providers Date of admission: 07/29/18 13:53 Attending physician: Cj Leach Consults: 07/29/18 17:41 Consult Physician Routine Consulting Provider: Bryce Sexton Consult Reason/Comments: medical managment Do you want consulting provider notified?: Already Contacted 07/30/18 12:13 Consult Physician Routine Consulting Provider: Mag Enriquez Consult Reason/Comments: left main disease Do you want consulting provider notified?: Yes Primary care physician: Elvis Don - Discharge Diagnosis(es) (1) Aortic valve stenosis Current Visit: Yes Status: Chronic (2) COPD (chronic obstructive pulmonary disease) Current Visit: Yes Status: Chronic (3) Hyperlipidemia Current Visit: Yes Status: Chronic (4) Hypertension Current Visit: Yes Status: Chronic (5) Morbid obesity Current Visit: Yes Status: Chronic Hospital Course: This 67-year-old gentleman was brought in for cardiac catheterization for assessment of aortic stenosis. Patient underwent a left and right heart catheterization. During catheterization, Patient developed vasovagal phenomenon severe hypotension requiring IV fluids and also vasopressors. He was found possible 50-60% stenosis of the left main and also disease in the OM branch and possible total occlusion of the mid LAD. Aortic valve could not be crossed and was felt that patient has moderate to severe aortic stenosis. Patient had repeat catheterization with IVUS done by Dr. ASHELY Van yesterday. He was found to have about 60% stenosis of the left main and total occlusion of the mid LAD with significant lesion involving the OM branch/intermediate branch. Patient was seen by cardiac surgeons. Recommendation was made for elective aortic valve replacement and also coronary bypass surgery. Most probably patient needs SNELL graft to the LAD, vein graft to the intermediate and also distal circumflex. Patient remains stable. His groin has been soft without any hematoma. No complaints of any chest pain or shortness of breath. Patient is being discharged home to continue home medication, plus metoprolol 25 mg by mouth twice a day and nitroglycerin as needed. Patient is instructed not to lift any heavy weights or pushing or pulling. Follow-up in the office in one week. Plan - Discharge Summary Discharge Rx Participant: No New Discharge Prescriptions: New Metoprolol Tartrate [Lopressor] 25 mg PO BID #60 tab Nitroglycerin Sl Tabs [Nitrostat] 0.4 mg SUBLINGUAL Q5M PRN #25 tab PRN Reason: Chest Pain Continue Rosuvastatin Calcium [Crestor] 20 mg PO DAILY Lisinopril 10 mg PO QAM No Action Naproxen Sodium [Aleve] 220 mg PO Q12HR PRN PRN Reason: Pain Hydrochlorothiazide 12.5 mg PO DAILY Vit C/E/Zn/Coppr/Lutein/Zeaxan [Preservision Areds 2 Softgel] 1 cap PO DAILY Aspirin 325 mg PO ONCE Discharge Medication List Naproxen Sodium [Aleve] 220 mg PO Q12HR PRN 07/07/14 [History] Hydrochlorothiazide 12.5 mg PO DAILY 06/16/15 [History] Lisinopril 10 mg PO QAM 06/16/15 [History] Rosuvastatin Calcium [Crestor] 20 mg PO DAILY 06/16/15 [History] Vit C/E/Zn/Coppr/Lutein/Zeaxan [Preservision Areds 2 Softgel] 1 cap PO DAILY [History] Aspirin 325 mg PO ONCE 07/29/18 [History] Metoprolol Tartrate [Lopressor] 25 mg PO BID #60 tab 08/01/18 [Rx] Nitroglycerin Sl Tabs [Nitrostat] 0.4 mg SUBLINGUAL Q5M PRN #25 tab 08/01/18 [Rx ] Follow up Appointment(s)/Referral(s): Cj Leach MD [STAFF PHYSICIAN] - 1 Week Discharge Disposition: HOME SELF-CARE
[2018-08-01] MEDS: SODIUM CHLORIDE 0.9% 1,000 ML IV SCH (11:12)
--- NOTE | 2018-08-01 11:54 | P.PN ---
Subjective Progress Note Date: 08/01/18 Principal diagnosis: Severe aortic stenosis with bicuspid aortic valve, coronary artery disease with left main disease. Previous medical history of hypertension, hyperlipidemia, mild COPD with preoperative FEV1 64% of predicted, obesity, remote tobacco dependence. Patient is currently sitting up in chair in no acute distress. Denies pain, shortness of breath. No new questions at this time. Objective - Vital Signs Vital signs: Vital Signs Temp 98.2 F 08/01/18 08:00 Pulse 77 08/01/18 08:30 Resp 24 08/01/18 08:00 BP 133/69 08/01/18 08:00 Pulse Ox 94 L 08/01/18 08:00 Intake & Output 07/31/18 08/01/18 08/01/18 18:59 06:59 18:59 Intake Total 850 375 75 Output Total 450 200 Balance 400 175 75 Weight 123.5 kg Intake: IV 850 375 75 Sodium Chloride 0.9% 1, 750 375 75 000 ml @ 75 mls/hr IV . [id number] [facility] Rx#:[id number] Output: Urine 450 200 Other: Voiding Method Urinal Urinal Toilet Urinal # Voids 1 # Bowel Movements 1 - Constitutional General appearance: Present: cooperative, no acute distress, obese - Respiratory Details: Lungs sounds diminished bilaterally. Respirations even, nonlabored. Currently on room air with oxygen saturation 94%. Able to achieve 2500 mL on his incentive spirometer. - Cardiovascular Details: S1, S2 present. Positive systolic murmur. Regular rate and rhythm, sinus rhythm on telemetry. Palpable peripheral pulses bilaterally. No edema present. No calf pain or tenderness noted. - Gastrointestinal Gastrointestinal Comment(s): Abdomen soft, nontender, nondistended, obese. Active bowel sounds present 4 quadrants. Tolerating diet. - Genitourinary Genitourinary Comment(s): Continues to void clear, yellow urine. - Integumentary Integumentary Comment(s): Skin is warm and dry with evidence of good perfusion. - Neurologic Neurologic: Present: CNII-XII intact - Musculoskeletal Musculoskeletal: Present: gait normal, strength equal bilaterally - Psychiatric Psychiatric: Present: A&O x's 3, appropriate affect, intact judgment & insight - Allied health notes Allied health notes reviewed: nursing - Labs CBC & Chem 7: 08/01/18 05:35 08/01/18 05:35 Labs: Abnormal Lab Results - Last 24 Hours (Table) 08/01/18 Range/Units 05:35 Glucose 114 H (74-99) mg/dL Triglycerides 203 H (<150) mg/dL Microbiology - Last 24 Hours (Table) 07/31/18 14:15 Nasal Screen MRSA/MSSA - Preliminary Nasal Swab 07/31/18 17:56 Urine Culture - Preliminary Urine,Voided - Imaging and Cardiology Chest x-ray: report reviewed, image reviewed Assessment and Plan (1) Aortic valve stenosis Current Visit: Yes Status: Chronic Code(s): I35.0 - NONRHEUMATIC AORTIC ( VALVE) STENOSIS SNOMED Code(s): 97985725 (2) Coronary artery disease Current Visit: Yes Status: Chronic Code(s): I25.10 - ATHSCL HEART DISEASE OF [place] CORONARY ARTERY W/O ANG PCTRS SNOMED Code(s): 28597198 (3) Hyperlipidemia Current Visit: Yes Status: Chronic Code(s): E78.5 - HYPERLIPIDEMIA, UNSPECIFIED SNOMED Code(s): 04550002 (4) Hypertension Current Visit: Yes Status: Chronic Code(s): I10 - ESSENTIAL (PRIMARY) HYPERTENSION SNOMED Code(s): 51234682 (5) Morbid obesity Current Visit: Yes Status: Chronic Code(s): E66.01 - MORBID (SEVERE) OBESITY DUE TO EXCESS CALORIES SNOMED Code(s): 479895616 (6) COPD (chronic obstructive pulmonary disease) Current Visit: Yes Status: Chronic Code(s): J44.9 - CHRONIC OBSTRUCTIVE PULMONARY DISEASE, UNSPECIFIED SNOMED Code(s): 51753578 (7) Tobacco dependence in remission Current Visit: No Status: Resolved Code(s): F17.201 - NICOTINE DEPENDENCE, UNSPECIFIED, IN REMISSION SNOMED Code(s): 310392916 Plan: 1. Our plan is for elective bioprosthetic aortic valve replacement, coronary artery bypass graft surgery utilizing left internal mammary artery and endoscopic vein harvesting, exclusion of the left atrial appendage, and possible sternal plating on 08/14/[address] Enriquez. This was discussed with the patient and his as well as Dr. Dr. Leach.. 2. Continue to maximize medical therapy with aspirin, statin, beta misbah. 3. Preoperative teaching initiated, continue to reinforce. 4. Patient will return for preadmission testing sometime next week to have type and screen as well as updated labs drawn. 5. We await dental clearance from the patient's dentist, Dr. Lucrecia Dai in [place]. Paperwork has been faxed to her office. 6. Patient may be discharged to home from our standpoint when okay with other services. Time with Patient: Greater than 30
[2018-08-01 13:28] LABS: Hepatitis A Antibody IgM Non-Reactive (Non-Reactive); Hepatitis B Core IgM Non-Reactive (Non-Reactive)
[2018-08-01 16:24] LABS: Hemoglobin A1C 6.2 % (4.0-6.0)
--- NOTE | 2018-08-06 09:24 | P.VSCSTY ---
Greater Saphenous Vein Mapping This is bilateral lower extremity greater saphenous vein mapping. Date of service 08/10/2018 Vein quality and ultrasound appearance we see no sign of intraluminal thrombus or wall changes. Vein size groin right 4.2 x 4.5 groin left 4.7 x 5.1 High thigh right 3.9 x 3.1 high thigh left 8.1 x 5.1 Mid thigh right 3.5 x 3.3 mid thigh left 5.9 x 4.1 Above-knee right 2.9 x 2.2 above-knee left 4.7 x 3.7 Below knee right 2.0 x 1.9 below-knee left 5.6 x 6.2 Mid calf right 2.9 x 2.7 mid calf left 3.8 x 2.8 Ankle right 1.7 x 2.2 ankle left 3.1 x 2.2 Impression usable bilateral greater saphenous vein. Right thigh and left lower leg appear most favorable in size and consistency..
== END 2018-08-01 12:35 | disposition home or self-care (01) | DRG 287 ==
LOC: CATHCVL 08:33 → 2SICU 13:53
PROVIDERS: ADMIT Internal Medicine Cardiovascular Disease; ATTEND Internal Medicine Cardiovascular Disease
PROC: 4A023N8 Measurement of Cardiac Sampling and Pressure, Bilateral, Percutaneous Approach (ICD-10-PCS; 2018-07-29)
PROC: B2111ZZ Fluoroscopy of Multiple Coronary Arteries using Low Osmolar Contrast (ICD-10-PCS; principal; 2018-07-29 10:08)
PROC: B2101ZZ Fluoroscopy of Single Coronary Artery using Low Osmolar Contrast (ICD-10-PCS; 2018-07-31)
PROC: B241ZZ3 Ultrasonography of Multiple Coronary Arteries, Intravascular (ICD-10-PCS; 2018-07-31)
DX: Q23.1 Congenital insufficiency of aortic valve (principal); Z68.41 Body mass index [BMI] 40.0-44.9, adult; I95.89 Other hypotension; I25.82 Chronic total occlusion of coronary artery; E66.01 Morbid (severe) obesity due to excess calories; J44.9 Chronic obstructive pulmonary disease, unspecified; I25.10 Atherosclerotic heart disease of native coronary artery without angina pectoris; E78.5 Hyperlipidemia, unspecified; E78.00 Pure hypercholesterolemia, unspecified; M19.042 Primary osteoarthritis, left hand; M19.041 Primary osteoarthritis, right hand; I10 Essential (primary) hypertension; F17.201 Nicotine dependence, unspecified, in remission; Z79.82 Long term (current) use of aspirin; Z79.899 Other long term (current) drug therapy; Z71.3 Dietary counseling and surveillance; Z87.81 Personal history of (healed) traumatic fracture; Z80.1 Family history of malignant neoplasm of trachea, bronchus and lung
CPT/HCPCS: 71046; 80048; 80053; 80061; 80074; 81003; 82810; 83036; 83735; 84100; 84132; 84443; 85018; 85025; 85027; 87070; 87086; 92978; 93454; 93456; 93880; 93970; 94150; 94640

== ENCOUNTER → 2018-08-09 | Outpatient (CLI) | payer MEDICARE ==
--- NOTE | 2018-08-09 11:17 | P.PN ---
Progress Note - Text Progress Note Date: 08/09/18 5 meter walk test completed: #1 2.96 sec #2 3.35 sec #3 3.30 sec
[2018-08-09 11:47] LABS: INR 0.9 (<1.2); Partial Thromboplastin Time 24.1 sec (22.0-30.0)
== END | disposition home or self-care (01) ==
LOC: LABWHC1 09:18
PROVIDERS: ATTEND Surgery
DX: I35.0 Nonrheumatic aortic (valve) stenosis (principal); I25.10 Atherosclerotic heart disease of native coronary artery without angina pectoris; Z79.01 Long term (current) use of anticoagulants; Z79.899 Other long term (current) drug therapy
CPT/HCPCS: 36415; 85610; 85730; 86850; 86900; 86901; 86920

== ENCOUNTER → 2018-09-17 | Outpatient (CLI) | payer MEDICARE ==
[2018-09-17 09:14] LABS: HCT 45.2 % (39.0-53.0); HGB 14.6 gm/dL (13.0-17.5); MCH 29.6 pg (25.0-35.0); MCHC 32.2 g/dL (31.0-37.0); MCV 91.7 fL (80.0-100.0); Mean Platelet Volume 6.9; Platelet Count 227 k/uL (150-450); RBC 4.93 m/uL (4.30-5.90); RDW 13.9 % (11.5-15.5)
[2018-09-17 09:18] LABS: INR 0.9 (<1.2); Partial Thromboplastin Time 24.1 sec (22.0-30.0); Prothrombin Time 10.2 sec (9.0-12.0)
[2018-09-17 09:45] LABS: ALT 47 U/L (21-72); AST 31 U/L (17-59); Albumin 4.4 g/dL (3.5-5.0); Alkaline Phosphatase 64 U/L (38-126); Anion Gap 8 mmol/L; Blood Urea Nitrogen 22 mg/dL (9-20); Calcium 10.1 mg/dL (8.4-10.2); Carbon Dioxide 32 mmol/L (22-30); Chloride 102 mmol/L (98-107); Glucose 116 mg/dL (74-99); Potassium 5.4 mmol/L (3.5-5.1); Sodium 142 mmol/L (137-145); Total Bilirubin 0.5 mg/dL (0.2-1.3); Total Protein 7.3 g/dL (6.3-8.2)
--- NOTE | 2018-09-17 11:24 | XR ---
EXAMINATION TYPE: XR chest 2V DATE OF EXAM: 09/17/2018 COMPARISON: Chest x-ray July 31, 2018. HISTORY: Presurgical study. TECHNIQUE: Frontal and lateral views of the chest are obtained. FINDINGS: There is no focal air space opacity, pleural effusion, or pneumothorax seen. The cardiac silhouette size is stable and within normal limits with slightly ectatic thoracic aorta redemonstrate d. The osseous structures are intact. IMPRESSION: No acute cardiopulmonary process. No significant change from prior.
== END | disposition home or self-care (01) ==
LOC: LABPAT 08:37
PROVIDERS: ATTEND Surgery
DX: Z01.818 Encounter for other preprocedural examination (principal); I10 Essential (primary) hypertension; I25.10 Atherosclerotic heart disease of native coronary artery without angina pectoris; E78.5 Hyperlipidemia, unspecified; I35.0 Nonrheumatic aortic (valve) stenosis; Z01.812 Encounter for preprocedural laboratory examination
CPT/HCPCS: 36415; 71046; 80053; 85027; 85610; 85730

== ENCOUNTER 2018-09-24 05:34 | Inpatient (IN) | payer MEDICARE ==
[~2018-09-24 05:34] MED LIST changes: +ALBUMIN HUMAN 25% 50 ML IV ONE; +ALBUMIN HUMAN 5% 500 ML IVPB ONE; -ALPRAZolam 0.25 MG TAB PO PRN; -ALPRAZolam 0.5 MG TAB PO PRN; +ASPIRIN 325 MG TAB PO ONE; -ASPIRIN 325 MG TAB PO STA; +ATORVASTATIN 10 MG TAB PO ONE; -ATORVASTATIN 80 MG TAB PO STA; +CALCIUM CHLORIDE 100 MG/ML 10 ML SYRINGE IV ONE; +CHLORHEXIDINE GLUCONATE 15 ML CUP MUCOUS MEM ONE; +CLEVIDIPINE BUTYRATE 25 MG in EMPTY BAG 1 BAG IV ONE; +DEXTROSE 5% IN WATER 1,000 ML with POTASSIUM CHLORIDE 110 MEQ, MAGNESIUM SULFATE 16 MEQ... IV ONE; +DEXTROSE 5% IN WATER 1,000 ML with POTASSIUM CHLORIDE 25 MEQ, SODIUM CHLORIDE 2.5MEQ/ML... IRRIGATION ONE; +HEPARIN SODIUM 1,000 UN/ML (10ML VL) IV ONE; +HEPARIN SODIUM,PORCINE 5,000 UNIT in SODIUM CHLORIDE 0.9% 500 ML 500 ML IV ONE; +INSULIN REGULAR 100 UNIT in SODIUM CHLORIDE 0.9% 100 ML IV ONE; +LACTATED RINGERS 1,000 ML IV ONE; +MAGNESIUM SULFATE MG 500 MG/ML IV ONE; +MANNITOL 25% 12.5 GM/50 ML VIAL IV ONE; +METOPROLOL TARTRATE 12.5 MG TAB PO ONE; +NITROGLYCERIN SL TABS 0.4 MG TAB SUBLINGUAL ONE; -NITROGLYCERIN SL TABS 0.4 MG TAB SUBLINGUAL PRN; +NITROGLYCERIN-D5W PMX 25 MG/250 ML BTL IV ONE; +NITROGLYCERIN-D5W PMX 50 MG in DEXTROSE/WATER 1 250ML.BAG IV ONE; +NOREPINEPHRINE 4 MG in SODIUM CHLORIDE 0.9% 250 ML IV ONE; +PAPAVERINE 360 MG in SODIUM CHLORIDE 0.9% 90 ML IV ONE; +PHENYLEPHRINE 40 MG in SODIUM CHLORIDE 0.9% 250 ML IV ONE; +PHENYLEPHRINE-0.9% NACL SYG 1 MG/10 ML SYRINGE IV ONE; +PROPOFOL 1,000 MG/100 ML VIAL IV ONE; +PROTAMINE SULFATE 10 MG/ML 25 ML VIAL IV ONE; +PROTAMINE SULFATE 250 MG in EMPTY BAG 1 BAG IV ONE; +SODIUM BICARB 8.4% 50 ML SYR (1 MEQ/ML) IV ONE; +SODIUM CHLORIDE 0.9% 1,000 ML IV ONE; -SODIUM CHLORIDE 0.9% 1,000 ML in EMPTY BAG 1 BAG IV ONE; +TRANEXAMIC ACID 2,000 MG in SODIUM CHLORIDE 0.9% 180 ML IV ONE; +ceFAZolin 1,000 MG in SODIUM CHLORIDE 0.9% IRRIGATIO 1,000 ML IRRIGATION ONE; +ceFAZolin 2,000 MG in SODIUM CHLORIDE 0.9% 30 ML IVPB ONE; +ceFAZolin 3 GM in SODIUM CHLORIDE 0.9% 30 ML IVPB ONE
[2018-09-24] MEDS ORDERED: PHENYLEPHRINE-0.9% NACL SYG 1 MG/10 ML SYRINGE ONE (07:35)
[2018-09-24] MEDS ORDERED: HEPARIN SODIUM,PORCINE 5,000 UNIT/ML 1 ML VIAL ONE (07:35)
[2018-09-24] MEDS ORDERED: TRANEXAMIC ACID 1,000 MG/10 ML VIAL ONE (07:35)
[2018-09-24] MEDS ORDERED: HEPARIN SODIUM,PORCINE 10,000 UNIT/ML 1 ML VIAL ONE (07:35)
[2018-09-24] MEDS ORDERED: PROPOFOL 10 MG/ML 20 ML VIAL IV ONE (07:35)
[2018-09-24] MEDS ORDERED: SODIUM CHLORIDE 0.9% 250 ML BAG ONE (07:35)
[2018-09-24] MEDS ORDERED: VECURONIUM 10 MG VIAL IV ONE (07:35)
[2018-09-24] MEDS ORDERED: CALCIUM CHLORIDE 100 MG/ML 10 ML SYRINGE ONE (07:35)
[2018-09-24] MEDS ORDERED: fentaNYL (PF) 50 MCG/ML 50 ML VIAL ONE (07:35)
[2018-09-24] MEDS ORDERED: PROTAMINE SULFATE 10 MG/ML 25 ML VIAL IV ONE (07:35)
[2018-09-24] MEDS ORDERED: ALBUMIN HUMAN 5% (25gm) 500 ML VIAL IVPB ONE (07:35)
[2018-09-24] MEDS ORDERED: fentaNYL (PF) 50 MCG/ML 2 ML AMP ONE (07:35)
[2018-09-24] MEDS ORDERED: MIDAZOLAM 2 MG/2 ML VIAL ONE (07:35)
[2018-09-24] MEDS ORDERED: ONDANSETRON 4 MG/2 ML VIAL IVP PRN (15:56)
[2018-09-24] MEDS ORDERED: Potassium Replacement Protocol 1 EACH MISC MISCELLANE PRN (15:56)
[2018-09-24] MEDS ORDERED: AMIODARONE 300 MG in DEXTROSE 5% IN WATER 250 ML IV PRN ×2 (15:56)
[2018-09-24] MEDS ORDERED: Magnesium Replacement Protocol 1 EACH MISC MISCELLANE PRN (15:56)
[2018-09-24] MEDS ORDERED: NITROGLYCERIN-D5W PMX 50 MG in DEXTROSE/WATER 1 250ML.BAG IV SCH (15:56)
[2018-09-24] MEDS ORDERED: IPRATROPIUM-ALBUTEROL 3 ML NEB INHALATION PRN (15:56)
[2018-09-24] MEDS ORDERED: AMIODARONE 360 MG in DEXTROSE 5% IN WATER 200 ML IV PRN ×2 (15:56)
[2018-09-24] MEDS ORDERED: CALCIUM CHLORIDE 1 GM in SODIUM CHLORIDE 0.9% 50 ML IVPB PRN (15:56)
[2018-09-24] MEDS ORDERED: METOCLOPRAMIDE 5 MG/ML 2 ML VIAL IVP PRN (15:56)
[2018-09-24] MEDS ORDERED: DEXTROSE 5% IN WATER 100 ML with AMIODARONE 150 MG IV PRN (15:56)
[2018-09-24] MEDS ORDERED: BENZOCAINE/MENTHOL LOZENG 1 EACH LOZENGE MUCOUS MEM PRN (15:56)
[2018-09-24] MEDS ORDERED: Phosphorus Replacement Protoco 1 EACH MISC MISCELLANE PRN (15:56)
[2018-09-24] MEDS: PROPOFOL 1,000 MG in EMPTY BAG 1 BAG IV SCH ×2 (16:55→20:21)
[2018-09-24] MEDS: NOREPINEPHRINE 8 MG in SODIUM CHLORIDE 0.9% 250 ML IV SCH (16:55)
[2018-09-24 17:30] LABS: Basophils % (A) 0 %; Eosinophils % (A) 0 %; HCT 26.8 % (39.0-53.0); Lymphocytes # (A) 1.2 k/uL (1.0-4.8); Lymphocytes % (A) 11 %; MCH 30.5 pg (25.0-35.0); MCHC 33.4 g/dL (31.0-37.0); MCV 91.2 fL (80.0-100.0); Mean Platelet Volume 7.9; Monocytes # (A) 0.8 k/uL (0-1.0); Monocytes % (A) 7 %; Neutrophils # (A) 8.7 k/uL (1.3-7.7); Neutrophils % (A) 79 %; Platelet Count 121 k/uL (150-450); RBC 2.94 m/uL (4.30-5.90); RDW 13.8 % (11.5-15.5); WBC 10.9 k/uL (3.8-10.6)
[2018-09-24] MEDS: LACTATED RINGERS 1,000 ML IV SCH (17:32)
[2018-09-24 17:33] LABS: ABG Base Excess -3.1 mmol/L; ABG HCO3 24 mmol/L (21-25); ABG PCO2 55 mmHg (35-45); ABG PH 7.25 (7.35-7.45); ABG PO2 349 mmHg (83-108); ABG TCO2 26 mmol/L (19-24)
[2018-09-24 17:33] LABS: Glucose,Whole Blood 125 mg/dL (75-99)
[2018-09-24] MEDS: ceFAZolin IN SWFI 2 GM/20 ML SYRINGE IVP SCH (17:35)
[2018-09-24 17:36] LABS: Ionized Calcium 4.8 mg/dL (4.5-5.3)
[2018-09-24 17:43] LABS: INR 1.2 (<1.2); Partial Thromboplastin Time 29.4 sec (22.0-30.0); Prothrombin Time 12.5 sec (9.0-12.0)
[2018-09-24] MEDS: IPRATROPIUM-ALBUTEROL 3 ML NEB INHALATION SCH ×3 (17:44→19:51)
[2018-09-24 17:46] LABS: ALT 30 U/L (21-72); AST 47 U/L (17-59); Alkaline Phosphatase 22 U/L (38-126); Anion Gap 6 mmol/L; Blood Urea Nitrogen 22 mg/dL (9-20); Calcium 7.7 mg/dL (8.4-10.2); Carbon Dioxide 25 mmol/L (22-30); Chloride 110 mmol/L (98-107); Glucose 120 mg/dL (74-99); Magnesium 2.2 mg/dL (1.6-2.3); Sodium 141 mmol/L (137-145); Total Bilirubin 0.9 mg/dL (0.2-1.3); Total Protein 4.6 g/dL (6.3-8.2)
--- NOTE | 2018-09-24 17:55 | OP ---
OPERATIVE REPORT DATE OF THE SURGERY: 09/24/2018. SURGEON: Dr. Mag Enriquez. SUPERVISOR BEET END: Peng Lynch and Chris HINSON. PREOPERATIVE DIAGNOSES: Bicuspid aortic valve with moderate to severe stenosis, double-vessel coronary artery disease with left main disease with a totally occluded left anterior descending artery, preserved left ventricular systolic function, obesity, hyperlipidemia, hypertension, congestive heart failure, hyperlipidemia, remote smoking history. POSTOPERATIVE DIAGNOSES: Bicuspid aortic valve with moderate to severe stenosis, double-vessel coronary artery disease with left main disease with a totally occluded left anterior descending artery, preserved left ventricular systolic function, obesity, hyperlipidemia, hypertension, congestive heart failure, hyperlipidemia, remote smoking history. PROCEDURE: 1. Triple coronary artery bypass grafting using the left internal mammary artery to the left anterior descending artery, reverse saphenous vein graft from the aorta to the first diagonal artery, reverse saphenous vein graft from the aorta to the 1st obtuse marginal artery/. 2. Aortic valve replacement using a 27 mm pericardial bioprosthesis Magna-Ease. 3. Exclusion of the left atrial appendage using a 40 mm AtriClip. 4. Transesophageal echocardiogram and epiaortic scanning. 5. Intraoperative graft flow measurements using the [employer] system. INDICATION FOR SURGERY: Patient is a 67-year-old gentleman who has been diagnosed with left main disease confirmed by IVUS with a 40% proximal RCA, non flow-limiting and known chronically occluded left anterior descending artery. He is also known to have a bicuspid aortic valve that at this point is moderately to severely stenotic. The patient is being brought in for aortic valve replacement and coronary artery bypass grafting. The SDS risk was discussed with him. He understood it and agreed to proceed. DESCRIPTION OF THE PROCEDURE: The patient in supine position, the right internal jugular [place]-Karol catheter and right radial arterial line were placed. The patient cardiac index was 3.5, and PA pressure was 44/12. Subsequently, he was brought to the operating room where general endotracheal anesthesia was induced uneventfully. He received 3 grams of cefazolin intravenously. A Sauceda catheter was inserted. The chest, abdomen and both lower extremities were prepped and draped using ChloraPrep. Ioban was used to cover the skin. Transesophageal echocardiogram confirmed the preoperative finding. Midline sternotomy was performed. The patient had a thick subcutaneous fat layer. The bone was quite dense. The left hemisternum was elevated and the left internal mammary artery was harvested in a somewhat skeletonized fashion. The left pleura was intentionally opened in this process and was drained with a 28-[place] chest tube. The right pleura remained intact. In the same setting, the right greater saphenous vein was harvested endoscopically from groin to above ankle level. The branches were tied. The leg incisions were closed over a drain. The vein appeared to be of good quality around 4 mm in diameter. Mediastinal fat was transected between 2 ties and epiaortic scanning revealed concentric intimal thickening but no protruding atheroma in the ascending aorta. Pericardium was opened in an inverted T-fashion and a pericardial cradle was created. Findings included soft aorta and large heart with a fatty surface. After systemic heparinization, after placement of respective pledgeted pursestring, aortic cannulation in the proximal arch with a 21-[place] Citizen soft flow cannula, venous cannulation via the right atrial appendage was performed. Antegrade as well as retrograde cardioplegia catheter were placed. The mammary artery was double clipped distally and transected, had an excellent pulsatile flow in it and was around 2 mm in diameter. Cardiopulmonary bypass was initiated and with the heart empty and beating, we looked at the target. It appeared that the LAD in its mid aspect, the 1st diagonal artery and the 1st obtuse marginal artery would be site for bypass. The ramus intermedius artery, which had a mid to distal lesion it in it became small after the significant lesion proven by IVUS and would not be bypassed. Aorta was clamped and during aortic clamping, myocardial protection was achieved with initial dose of antegrade cold blood cardioplegia followed by dose of retrograde cold blood cardioplegia. All subsequent doses were given retrograde at 15 minute intervals. We started by excluding the left atrial appendage at its base using a 40 mm AtriClip. The appendage was quite posterior behind the pulmonary artery. Subsequently, we performed the 1st distal anastomosis of a good segment of reverse saphenous vein graft and the 1st obtuse marginal artery which was around 1.5 mm in diameter thin-walled using Prolene 7-0 in continuous fashion. The 2nd distal anastomosis was between another segment of reverse saphenous vein graft of good quality and the first diagonal artery which dose was around 1.5 mm in diameter thin-walled using Prolene 7-0 in continuous fashion. The third and last distal anastomosis was between the left internal mammary artery that passed into a groove in the left pleural pericardial fat and the mid to distal left anterior descending artery, which actually was a good target vessel was opened was around 1.75 mm in diameter using Prolene 7-0 in continuous fashion. The mammary was affixed to the epicardium with 1 Prolene 6-0 suture. Attention was moved at this point at performing the aortic valve replacement part. The aorta was opened in a transverse fashion and exploration revealed a heavily calcified bicuspid aortic valve with fusion of the right and left coronary cusps. The valve was excised and the anulus was debrided to a totally non calcific tissue. Thorough irrigation was performed. Subsequently, a total of 20 sutures of Tycron 2-0 placed in a horizontal mattress fashion with the pledgets on the ventricular side were passed into the anulus. The anulus had measured 27 mm Magna Ease, which was prepared on the back table in the interim. Those sutures were passed symmetrically into the cuff of the bioprosthesis, were seated nicely in a supra-annular position. The needles were cut and the suture tied using the core knot device. Both coronary ostia were clear. Subsequently, the aortotomy was closed using Prolene 3-0 in 2 layers. The first layer in a horizontal mattress and the 2nd layer in an over and over technique. Attention was moved at this point to performing the 2 proximal anastomosis of the 2 vein graft. Rewarming was started as we punched out 2 buttons of the ascending aorta and the 2 veins were anastomosed to the left lateral wall of the aorta using Prolene 6- 0 in continuous fashion. The vein going to the diagonal artery was quite posterolateral compared to the other vein. The patient was given lidocaine and magnesium. De-airing maneuvers were followed. CO2 was flowing over the field as long as the aorta was opened. Subsequently, the aorta was unclamped. The patient regained spontaneous sinus rhythm. De-airing was guided by FAISAL and I placed an 18-gauge needle in the apex and there was a lot of air there and decompressed it and de-aired it. The hole was closed with a pledgeted 6-0 Prolene. The aortic valve appeared to be well seated with no perivalvular leak. After a period of reperfusion, we were able to wean off cardioplegia bypass with the need of low-dose vasopressor support, but no inotropic support. FAISAL showed good LV function, good functioning valve and mild mitral valve regurgitation. Test dose and full dose protamine was given. We had the bleeding at the level of the aortotomy on the left side. Appeared to come from the needle site towards the valve and that required several pledgeted Prolene 4-0 and eventually appeared to be satisfactory. I placed CoSeal over that area. The pericardial fat was approximated over the aorta and the heart. After ensuring adequate hemostasis and hemodynamic and after placement of a 32-[place] substernal chest tube and 19-[place] Citizen Jake drain, which was placed in the posterior pericardium, the sternum was closed using 5 [id number] pineal cable after interposing fibular between the sternal edges. Thorough irrigation of cefazolin followed. The rest of the closure proceeded in layers. Skin glue was applied. Patient did not receive any blood bank product but received around 2 L of Cell Saver blood. He was transferred to the ICU in stable condition on low-dose Levophed with a mean arterial pressure of 71, normal sinus rhythm at 88, PA pressure of 22/13. MMODL / IJN: [id number] /
[2018-09-24] MEDS ORDERED: CALCIUM GLUCONATE 1 GM in SODIUM CHLORIDE 0.9% 100 ML IVPB ONE (17:56)
[2018-09-24] MEDS: ACETAMINOPHEN IV (For NPO) 1,000 MG in EMPTY BAG 1 BAG IVPB SCH (18:15)
--- NOTE | 2018-09-24 18:47 | XR ---
EXAMINATION: XR chest 1V portable DATE AND TIME: 09/24/2018 5:40 PM CLINICAL INDICATION: PHH; Post Operative Cardiac Surgery TECHNIQUE: Supine AP portable COMPARISON: 09/17/2018 FINDINGS: Since the prior study, sternal sutures and mediastinal clips. ET tube tip superimposed over the mid trachea. NG tube appears to be present but its distal tip cannot be visualized. Right IJ [place] tip superimposed over the MPA. Left chest tube. EKG leads. There are no abnormal gas collections. However, it is noted and supine radiography cannot exclude pne umothorax. The pleural spaces are negative as seen on this portable exam. The lungs appear to be clear bilaterally. IMPRESSION: Postop cardiac surgery chest radiograph, as above.
[2018-09-24 18:55] LABS: Glucose,Whole Blood 166 mg/dL (75-99)
[2018-09-24] MEDS: INSULIN REGULAR 100 UNIT in SODIUM CHLORIDE 0.9% 100 ML IV SCH (19:00)
[2018-09-24 20:10] LABS: Glucose,Whole Blood 167 mg/dL (75-99)
[2018-09-24] MEDS: MORPHINE SULFATE 2 MG/ML SYRINGE IVP PRN (20:15)
[2018-09-24 20:23] LABS: Ionized Calcium 4.6 mg/dL (4.5-5.3)
[2018-09-24 20:29] LABS: Partial Thromboplastin Time 29.9 sec (22.0-30.0); Prothrombin Time 10.9 sec (9.0-12.0)
[2018-09-24 20:34] LABS: ALT 34 U/L (21-72); AST 55 U/L (17-59); Albumin 3.2 g/dL (3.5-5.0); Alkaline Phosphatase 38 U/L (38-126); Anion Gap 8 mmol/L; Blood Urea Nitrogen 22 mg/dL (9-20); Calcium 8.2 mg/dL (8.4-10.2); Carbon Dioxide 21 mmol/L (22-30); Chloride 109 mmol/L (98-107); Glucose 159 mg/dL (74-99); Magnesium 2.1 mg/dL (1.6-2.3); Phosphorus 3.4 mg/dL (2.5-4.5); Potassium 5.9 mmol/L (3.5-5.1); Sodium 138 mmol/L (137-145); Total Protein 4.9 g/dL (6.3-8.2)
[2018-09-24 20:47] LABS: Basophils % (A) 0 %; Eosinophils % (A) 0 %; HCT 26.5 % (39.0-53.0); HGB 8.6 gm/dL (13.0-17.5); Lymphocytes # (A) 0.8 k/uL (1.0-4.8); Lymphocytes % (A) 8 %; MCH 29.2 pg (25.0-35.0); MCHC 32.5 g/dL (31.0-37.0); MCV 89.8 fL (80.0-100.0); Mean Platelet Volume 8.2; Monocytes # (A) 0.7 k/uL (0-1.0); Monocytes % (A) 7 %; Neutrophils # (A) 8.1 k/uL (1.3-7.7); Neutrophils % (A) 84 %; Platelet Count 143 k/uL (150-450); RBC 2.95 m/uL (4.30-5.90); WBC 9.7 k/uL (3.8-10.6)
[2018-09-24] MEDS: CLEVIDIPINE BUTYRATE 25 MG in EMPTY BAG 1 BAG IV SCH (21:11)
[2018-09-24] MEDS: ALBUMIN HUMAN 5% 250 ML IVPB SCH ×3 (21:11→21:31)
[2018-09-24] MEDS ORDERED: MUPIROCIN 2% OINT 22 GM TUBE NASAL ONE (21:15)
[2018-09-24 21:19] LABS: Glucose,Whole Blood 168 mg/dL (75-99)
[2018-09-24 22:29] LABS: Glucose,Whole Blood 154 mg/dL (75-99)
[2018-09-24 23:23] LABS: Glucose,Whole Blood 156 mg/dL (75-99)
[2018-09-25 00:19] LABS: Glucose,Whole Blood 151 mg/dL (75-99)
[2018-09-25] MEDS: ACETAMINOPHEN IV (For NPO) 1,000 MG in EMPTY BAG 1 BAG IVPB SCH ×4 (00:19→17:54)
[2018-09-25] MEDS: HEPARIN SODIUM,PORCINE 5,000 UNIT/ML 1 ML VIAL SQ SCH ×3 (00:20→17:00)
[2018-09-25] MEDS: ceFAZolin IN SWFI 2 GM/20 ML SYRINGE IVP SCH ×2 (00:21→10:11)
[2018-09-25] MEDS: MUPIROCIN 2% OINT 22 GM TUBE NASAL SCH ×3 (00:50→21:47)
[2018-09-25] MEDS: PROPOFOL 1,000 MG in EMPTY BAG 1 BAG IV SCH ×2 (00:50→10:25)
[2018-09-25] MEDS: MORPHINE SULFATE 2 MG/ML SYRINGE IVP PRN ×4 (01:19→19:10)
[2018-09-25 01:24] LABS: Glucose,Whole Blood 146 mg/dL (75-99)
[2018-09-25 01:31] LABS: Basophils % (A) 0 %; Eosinophils % (A) 0 %; HCT 23.5 % (39.0-53.0); HGB 7.7 gm/dL (13.0-17.5); Lymphocytes # (A) 1.5 k/uL (1.0-4.8); Lymphocytes % (A) 14 %; MCH 29.6 pg (25.0-35.0); MCHC 32.9 g/dL (31.0-37.0); MCV 89.7 fL (80.0-100.0); Mean Platelet Volume 8.8; Monocytes # (A) 0.7 k/uL (0-1.0); Monocytes % (A) 7 %; Neutrophils # (A) 8.1 k/uL (1.3-7.7); Neutrophils % (A) 78 %; Platelet Count 137 k/uL (150-450); RBC 2.62 m/uL (4.30-5.90); WBC 10.5 k/uL (3.8-10.6)
[2018-09-25 01:40] LABS: ALT 34 U/L (21-72); AST 64 U/L (17-59); Albumin 2.9 g/dL (3.5-5.0); Alkaline Phosphatase 32 U/L (38-126); Anion Gap 7 mmol/L; Blood Urea Nitrogen 22 mg/dL (9-20); Calcium 7.9 mg/dL (8.4-10.2); Carbon Dioxide 23 mmol/L (22-30); Chloride 109 mmol/L (98-107); Glucose 131 mg/dL (74-99); Potassium 5.1 mmol/L (3.5-5.1); Sodium 139 mmol/L (137-145); Total Bilirubin 0.4 mg/dL (0.2-1.3); Total Protein 4.6 g/dL (6.3-8.2)
[2018-09-25 02:17] LABS: Glucose,Whole Blood 141 mg/dL (75-99)
--- NOTE | 2018-09-25 02:36 | CONS ---
CONSULTATION DATE OF CONSULTATION: September 24, 2018. REASON FOR CONSULTATION: Medical management requested by Dr. Enriquez. CONSULTATION: This is a 67-year-old patient of Dr. Don whose chronic stable medical conditions include hyperlipidemia, hypertension, obesity. The patient did have a cardiac cath that showed moderate to severe aortic valve stenosis with a peak gradient of 60 and a mean of 30. Also, coronary artery disease. The patient today underwent a coronary bypass and aortic valve replacement, currently intubated with FiO2 40 and a PEEP of 5 on the ventilator. The patient has 3 mediastinal and 1 left-sided pleural tube chest tube. Telemetry shows sinus rhythm. The patient's current drips include nitroglycerin drip at 5, insulin drip at 5, norepinephrine drip, and propofol. No family members present. REVIEW OF SYSTEMS: Patient is intubated. PAST MEDICAL HISTORY: Hypertension, hyperlipidemia, moderate to severe aortic valve stenosis and moderate aortic valve regurgitation. PAST SURGICAL HISTORY: Cardiac catheterization, ORIF of the left ankle, laceration repair of left forearm. SOCIAL HISTORY: Smoked 2 packs a day for 40 years, stopped 14 years ago. No alcohol. Apparently lives by himself. FAMILY HISTORY: Lung cancer. HOME MEDICATIONS: 1. PreserVision 1 capsule p.o. daily. 2. Crestor 20 mg p.o. daily. 3. Fish oil 100 mg p.o. daily. 4. Nitrostat 0.4 sublingual q.5 p.r.n. 5. Aleve 220 mg p.o. q.12 p.r.n. 6. Bactroban 2% nasal b.i.d. 7. Lopressor 12.5 p.o. b.i.d. 8. Lisinopril 10 mg p.o. daily. 9. Hydrochlorothiazide 12.5 p.o. daily. 10.Vitamin D3 2000 units p.o. daily. 11.Aspirin 325 p.o. daily. ALLERGIES: None. EXAMINATION: VITAL SIGNS: Afebrile. Pulse 59, respiration 22, blood pressure 120/56, pulse ox 99% on ventilator. GENERAL APPEARANCE: Well built, BMI 41.2. Lying in bed, intubated. EYES: Pupils equal. Conjunctivae normal. HEENT: External appearance of nose and ears normal. Oral cavity normal. NECK: JVD unable to assess. Mass not palpable. RESPIRATORY: Effort increased LUNGS: Distant breath sounds. CARDIOVASCULAR: Heart sounds muffled. No edema. ABDOMEN: Distended, soft. Liver and spleen not palpable. LYMPHATICS: No lymph nodes palpable in the neck and axilla. PSYCHIATRY: Unable to assess. NEUROLOGICAL: Pupils equal. No facial asymmetry. INVESTIGATIONS: White count 9.7, hemoglobin 8.6, potassium 5.9, BUN 22, creatinine 0.78. The patient's preop hemoglobin was 14.6. ASSESSMENT: 1. Status post coronary bypass with aortic valve replacement with prosthetic valve. 2. Essential hypertension. 3. Hyperlipidemia. 4. Acute postoperative blood loss anemia. 5. Morbid obesity BMI 41.1. 6. Hyperkalemia. 7. Acute respiratory failure with ventilator assist postop. 8. Thrombocytopenia likely dilutional. PLAN: Continue current medication and treatment plan including drips include nitroglycerin, Questran, insulin, norepinephrine, propofol. The patient's potassium to be repeated. Keep a close eye. The patient already on insulin that should decrease the potassium. The patient's LR can be changed to saline given the potassium running high. Thank you, Dr. Enriquez. Copy to Dr. Don. MMODL / IJN: [id number] /
[2018-09-25 03:27] LABS: Glucose,Whole Blood 133 mg/dL (75-99)
[2018-09-25 04:20] LABS: Glucose,Whole Blood 134 mg/dL (75-99)
[2018-09-25 05:39] LABS: Basophils % (A) 0 %; Eosinophils % (A) 0 %; HCT 22.8 % (39.0-53.0); HGB 7.4 gm/dL (13.0-17.5); Lymphocytes # (A) 1.6 k/uL (1.0-4.8); Lymphocytes % (A) 19 %; MCH 29.1 pg (25.0-35.0); MCHC 32.5 g/dL (31.0-37.0); MCV 89.4 fL (80.0-100.0); Mean Platelet Volume 10.1; Monocytes # (A) 0.6 k/uL (0-1.0); Monocytes % (A) 7 %; Neutrophils % (A) 72 %; Platelet Count 138 k/uL (150-450); RBC 2.55 m/uL (4.30-5.90); RDW 14.2 % (11.5-15.5); WBC 8.4 k/uL (3.8-10.6)
[2018-09-25 05:43] LABS: Ionized Calcium 4.7 mg/dL (4.5-5.3)
[2018-09-25 05:50] LABS: ALT 33 U/L (21-72); AST 68 U/L (17-59); Albumin 2.8 g/dL (3.5-5.0); Alkaline Phosphatase 35 U/L (38-126); Anion Gap 5 mmol/L; Blood Urea Nitrogen 23 mg/dL (9-20); Calcium 7.8 mg/dL (8.4-10.2); Carbon Dioxide 25 mmol/L (22-30); Chloride 108 mmol/L (98-107); Glucose 124 mg/dL (74-99); Magnesium 2.2 mg/dL (1.6-2.3); Potassium 4.4 mmol/L (3.5-5.1); Sodium 138 mmol/L (137-145); Total Bilirubin 0.4 mg/dL (0.2-1.3); Total Protein 4.5 g/dL (6.3-8.2)
[2018-09-25 06:34] LABS: Magnesium 2.2 mg/dL (1.6-2.3); Phosphorus 3.3 mg/dL (2.5-4.5)
[2018-09-25 06:53] LABS: Glucose,Whole Blood 136 mg/dL (75-99)
[2018-09-25 06:56] LABS: Prothrombin Time 10.9 sec (9.0-12.0)
[2018-09-25] MEDS ORDERED: CALCIUM CHLORIDE 100 MG/ML 10 ML SYRINGE IVP STA (07:58)
[2018-09-25 08:04] LABS: ABG Base Excess 1.5 mmol/L; ABG HCO3 26 mmol/L (21-25); ABG Oxygen Saturation 98.7 % (94-97); ABG PCO2 40 mmHg (35-45); ABG PH 7.42 (7.35-7.45); ABG PO2 101 mmHg (83-108); ABG TCO2 27 mmol/L (19-24)
[2018-09-25 08:05] LABS: Glucose,Whole Blood 127 mg/dL (75-99)
[2018-09-25] MEDS: IPRATROPIUM-ALBUTEROL 3 ML NEB INHALATION SCH ×4 (08:07→19:26)
--- NOTE | 2018-09-25 08:16 | XR ---
EXAMINATION TYPE: XR chest 1V portable DATE OF EXAM: 09/25/2018 COMPARISON: 09/24/2018 INDICATION: Postop cardiac surgery TECHNIQUE: Single frontal view of the chest is obtained. FINDINGS: The heart size is mildly prominent. The pulmonary vasculature is normal. There is a left lower lobe infiltrate. Left base diaphragm is not well visualized. There may be eleva tion of the right diaphragm Endotracheal tube tip is above the liya. [place]-Karol catheter is present, the distal tip appears to b e in the main pulmonary artery region. Sternotomy wires are present from prior cardiac surgery. Left basilar chest tube is partially visualized. No pneumothorax is evident. IMPRESSION: 1. Left lower lobe infiltrate. Correlate for atelectasis and pneumonia. 2. Multiple lines and catheters discussed above. 3. There is limited visualization of the left base chest tube. No pneumothorax is evident.
--- NOTE | 2018-09-25 08:44 | P.PN ---
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 POD #1 triple coronary artery bypass grafting using the left internal mammary artery to the left anterior descending artery, reverse saphenous vein graft from the aorta to the first diagonal artery, reverse saphenous vein graft from the aorta to the first obtuse marginal artery. Aortic valve replacement using a 27 mm pericardial bioprosthesis Magna Ease. Exclusion of the left atrial appendage using a 40 mm AtriClip. Endoscopic vein harvesting of the right greater saphenous vein from the groin to above the ankle level. Intraoperative transesophageal echocardiogram and epi-aortic scanning. Intraoperative graft flow measurements using the Pumantim system. Postoperative acute blood loss anemia, expected outcome given cardiopulmonary bypass and hemodilution. Patient's currently laying in bed in the intensive care unit in no acute distress on mechanical ventilation. Remains in normal sinus rhythm with his heart rate in the 90s. Remains hemodynamically stable on IV Levophed at 0.05 mcg/kg/min. Urine output has been adequate. Mediastinal chest tube drainage has slowed. Patient did receive cryoprecipitate last night. Sedated on propofol , becomes very anxious when sedation is lightened. Objective - Vital Signs Vital signs: Vital Signs Temp 37.8 F L 09/25/18 04:00 Pulse 95 09/25/18 05:30 Resp 13 09/25/18 05:30 BP 150/80 09/24/18 06:12 Pulse Ox 97 09/25/18 05:30 Intake & Output 09/24/18 09/25/18 09/25/18 18:59 06:59 18:59 Intake Total 402.434 3177.869 7.373 Output Total 5945 1978 Balance -5723.321 -92.131 7.373 Weight 129 kg Intake: IV 206.0 1275.5 ACETAMINOPHEN IV (For NPO 200 ) 1,000 mg In Empty Bag 1 bag @ 400 mls/hr IVPB Q6HR ON LICENSE OF [facility] Rx#:[id number] CO/CI 130 Calcium Gluconate 1 gm In 100 Sodium Chloride 0.9% 100 ml @ 100 mls/hr IVPB ONCE ONE Rx#:[id number] Lactated Ringers 1,000 ml 100 650 @ 50 mls/hr IV .Q20H ON LICENSE OF [facility] Rx#:[id number] Nitroglycerin-D5w Pmx 50 3.0 19.5 mg In Dextrose/Water 1 250ml.bag @ 5 MCG/MIN 1.5 mls/hr IV .Q24H ON LICENSE OF [facility] Rx#: [id number] cryo 240 pressure bag 36 Intake, IV Titration 15.679 447.369 7.373 Amount Insulin Regular 100 unit 59.506 7.373 In Sodium Chloride 0.9% 100 ml @ Per Protocol IV .Q0M ON LICENSE OF [facility] Rx#:[id number] Norepinephrine 8 mg In 9.866 210.808 Sodium Chloride 0.9% 250 ml @ 0.04 MCG/KG/MIN 9.47 mls/hr IV .Q24H ON LICENSE OF [facility] Rx#: [id number] Propofol 1,000 mg In 5.813 177.055 Empty Bag 1 bag @ Titrate IV .Q0M ON LICENSE OF [facility] Rx#: [id number] Blood Product 133 Pooled Cryoprecipitate 0 Unit [id number] Pooled Cryoprecipitate 133 Unit [id number] Other 30 Output: Chest Tube Drainage 485 773 Chest Tube Bilateral 450 720 Mediastinal Chest Tube Left Lateral 35 53 Chest Drainage 40 Right Calf 40 Urine 960 1165 Estimated Blood Loss 4500 Other: Voiding Method Indwelling Catheter Indwelling Catheter ABP, PAP, CO, CI - Last Documented Arterial Blood Pressure 103/57 Pulmonary Artery Pressure 37/23 Cardiac Output 7.4 Cardiac Index 3.2 - Constitutional General appearance: Present: morbidly obese, no acute distress - Respiratory Details: Lungs sounds diminished bilaterally. Respirations even, nonlabored on mechanical ventilation. Current ventilator settings SIMV mode, FiO2 40%, tidal volume 550, respiratory rate 16, PEEP 10. ABGs this morning 7.42/40/101/26/98%/ 1.5 on 40% FiO2 with 10 of PEEP. 9.0 ET tube present, 25 at the lip. Mediastinal chest tube to continuous wall suction, 340 mL serosanguineous drainage overnight, 1200 mL since surgery. Left pleural chest tube to continuous wall suction, 37 mL serosanguineous drainage overnight, 70 mL since surgery. No air leaks present. - Cardiovascular Details: S1, S2 present. Regular rate and rhythm, sinus rhythm on telemetry. Sternum stable. A/V epicardial pacemaker wires present, connected to generator, VVI mode with backup rate 50 bpm. Palpable peripheral pulses bilaterally. No edema present. No calf pain or tenderness noted. Right internal jugular [place]/ Cordis, right radial arterial line present. Last CO/CI 7.4/3.2 on 0.05 mcg/kg/ min. Heart hugger, antiembolism stockings, SCDs present. - Gastrointestinal Gastrointestinal Comment(s): Abdomen soft, nontender, nondistended, obese. Hypoactive bowel sounds present 4 quadrants. OG tube present low intermittent suction with no output. - Genitourinary Genitourinary Comment(s): Sauceda present draining clear, yellow urine. Output 75-100 mL/h overnight, 700 mL in the last 8 hours. - Integumentary Integumentary Comment(s): Skin is warm and dry with evidence of good perfusion. Anterior chest incision well approximated and covered with dry intact dressing. Right lower extremity EVH site well approximated, LACHO drain present with 40 mL serosanguineous drainage total. - Neurologic Neurologic Comment(s): Sedated with propofol. Does move all 4 extremities. - Psychiatric Psychiatric Comment(s): Sedated with propofol, does become quite anxious when sedation is lightened. - Allied health notes Allied health notes reviewed: nursing - Labs CBC & Chem 7: 09/25/18 05:30 09/25/18 05:30 Labs: Abnormal Lab Results - Last 24 Hours (Table) 09/17/18 09/24/18 09/24/18 Range/Units 08:45 17:15 17:15 WBC 10.9 H (3.8-10.6) k/uL RBC 2.94 L (4.30-5.90) m/uL Hgb 9.0 L D (13.0-17.5) gm/dL Hct 26.8 L (39.0-53.0) % Plt Count 121 L (150-450) k/uL Neutrophils # 8.7 H (1.3-7.7) k/uL Lymphocytes # (1.0-4.8) k/uL PT (9.0-12.0) sec INR (<1.2) Fibrinogen (200-500) mg/dL ABG pH (7.35-7.45) ABG pCO2 (35-45) mmHg ABG pO2 (83-108) mmHg ABG Total CO2 (19-24) mmol/L ABG O2 Saturation (94-97) % Potassium (3.5-5.1) mmol/L Chloride 110 H (98-107) mmol/L Carbon Dioxide (22-30) mmol/L BUN 22 H (9-20) mg/dL Glucose 120 H (74-99) mg/dL POC Glucose (mg/dL) (75-99) mg/dL Calcium 7.7 L (8.4-10.2) mg/dL AST (17-59) U/L Alkaline Phosphatase 22 L (38-126) U/L Total Protein 4.6 L (6.3-8.2) g/dL Albumin 3.0 L (3.5-5.0) g/dL Crossmatch See Detail 09/24/18 09/24/18 09/24/18 Range/Units 17:15 17:15 17:31 WBC (3.8-10.6) k/uL RBC (4.30-5.90) m/uL Hgb (13.0-17.5) gm/dL Hct (39.0-53.0) % Plt Count (150-450) k/uL Neutrophils # (1.3-7.7) k/uL Lymphocytes # (1.0-4.8) k/uL PT 12.5 H (9.0-12.0) sec INR 1.2 H (<1.2) Fibrinogen 102 L (200-500) mg/dL ABG pH 7.25 L (7.35-7.45) ABG pCO2 55 H (35-45) mmHg ABG pO2 349 H (83-108) mmHg ABG Total CO2 26 H (19-24) mmol/L ABG O2 Saturation 100.0 H (94-97) % Potassium (3.5-5.1) mmol/L Chloride (98-107) mmol/L Carbon Dioxide (22-30) mmol/L BUN (9-20) mg/dL Glucose (74-99) mg/dL POC Glucose (mg/dL) 125 H (75-99) mg/dL Calcium (8.4-10.2) mg/dL AST (17-59) U/L Alkaline Phosphatase (38-126) U/L Total Protein (6.3-8.2) g/dL Albumin (3.5-5.0) g/dL Crossmatch 09/24/18 09/24/18 09/24/18 Range/Units 18:43 19:58 20:00 WBC (3.8-10.6) k/uL RBC 2.95 L (4.30-5.90) m/uL Hgb 8.6 L (13.0-17.5) gm/dL Hct 26.5 L (39.0-53.0) % Plt Count 143 L (150-450) k/uL Neutrophils # 8.1 H (1.3-7.7) k/uL Lymphocytes # 0.8 L (1.0-4.8) k/uL PT (9.0-12.0) sec INR (<1.2) Fibrinogen (200-500) mg/dL ABG pH (7.35-7.45) ABG pCO2 (35-45) mmHg ABG pO2 (83-108) mmHg ABG Total CO2 (19-24) mmol/L ABG O2 Saturation (94-97) % Potassium (3.5-5.1) mmol/L Chloride (98-107) mmol/L Carbon Dioxide (22-30) mmol/L BUN (9-20) mg/dL Glucose (74-99) mg/dL POC Glucose (mg/dL) 166 H 167 H (75-99) mg/dL Calcium (8.4-10.2) mg/dL AST (17-59) U/L Alkaline Phosphatase (38-126) U/L Total Protein (6.3-8.2) g/dL Albumin (3.5-5.0) g/dL Crossmatch 09/24/18 09/24/18 09/24/18 Range/Units 20:00 21:08 22:14 WBC (3.8-10.6) k/uL RBC (4.30-5.90) m/uL Hgb (13.0-17.5) gm/dL Hct (39.0-53.0) % Plt Count (150-450) k/uL Neutrophils # (1.3-7.7) k/uL Lymphocytes # (1.0-4.8) k/uL PT (9.0-12.0) sec INR (<1.2) Fibrinogen (200-500) mg/dL ABG pH (7.35-7.45) ABG pCO2 (35-45) mmHg ABG pO2 (83-108) mmHg ABG Total CO2 (19-24) mmol/L ABG O2 Saturation (94-97) % Potassium 5.9 H (3.5-5.1) mmol/L Chloride 109 H (98-107) mmol/L Carbon Dioxide 21 L (22-30) mmol/L BUN 22 H (9-20) mg/dL Glucose 159 H (74-99) mg/dL POC Glucose (mg/dL) 168 H 154 H (75-99) mg/dL Calcium 8.2 L (8.4-10.2) mg/dL AST (17-59) U/L Alkaline Phosphatase (38-126) U/L Total Protein 4.9 L (6.3-8.2) g/dL Albumin 3.2 L (3.5-5.0) g/dL Crossmatch 09/24/18 09/25/18 09/25/18 Range/Units 23:11 00:07 01:12 WBC (3.8-10.6) k/uL RBC (4.30-5.90) m/uL Hgb (13.0-17.5) gm/dL Hct (39.0-53.0) % Plt Count (150-450) k/uL Neutrophils # (1.3-7.7) k/uL Lymphocytes # (1.0-4.8) k/uL PT (9.0-12.0) sec INR (<1.2) Fibrinogen (200-500) mg/dL ABG pH (7.35-7.45) ABG pCO2 (35-45) mmHg ABG pO2 (83-108) mmHg ABG Total CO2 (19-24) mmol/L ABG O2 Saturation (94-97) % Potassium (3.5-5.1) mmol/L Chloride (98-107) mmol/L Carbon Dioxide (22-30) mmol/L BUN (9-20) mg/dL Glucose (74-99) mg/dL POC Glucose (mg/dL) 156 H 151 H 146 H (75-99) mg/dL Calcium (8.4-10.2) mg/dL AST (17-59) U/L Alkaline Phosphatase (38-126) U/L Total Protein (6.3-8.2) g/dL Albumin (3.5-5.0) g/dL Crossmatch 09/25/18 09/25/18 09/25/18 Range/Units 01:17 01:17 02:05 WBC (3.8-10.6) k/uL RBC 2.62 L (4.30-5.90) m/uL Hgb 7.7 L (13.0-17.5) gm/dL Hct 23.5 L (39.0-53.0) % Plt Count 137 L (150-450) k/uL Neutrophils # 8.1 H (1.3-7.7) k/uL Lymphocytes # (1.0-4.8) k/uL PT (9.0-12.0) sec INR (<1.2) Fibrinogen (200-500) mg/dL ABG pH (7.35-7.45) ABG pCO2 (35-45) mmHg ABG pO2 (83-108) mmHg ABG Total CO2 (19-24) mmol/L ABG O2 Saturation (94-97) % Potassium (3.5-5.1) mmol/L Chloride 109 H (98-107) mmol/L Carbon Dioxide (22-30) mmol/L BUN 22 H (9-20) mg/dL Glucose 131 H (74-99) mg/dL POC Glucose (mg/dL) 141 H (75-99) mg/dL Calcium 7.9 L (8.4-10.2) mg/dL AST 64 H (17-59) U/L Alkaline Phosphatase 32 L (38-126) U/L Total Protein 4.6 L (6.3-8.2) g/dL Albumin 2.9 L (3.5-5.0) g/dL Crossmatch 09/25/18 09/25/18 09/25/18 Range/Units 03:14 04:08 05:30 WBC (3.8-10.6) k/uL RBC 2.55 L (4.30-5.90) m/uL Hgb 7.4 L (13.0-17.5) gm/dL Hct 22.8 L (39.0-53.0) % Plt Count 138 L (150-450) k/uL Neutrophils # (1.3-7.7) k/uL Lymphocytes # (1.0-4.8) k/uL PT (9.0-12.0) sec INR (<1.2) Fibrinogen (200-500) mg/dL ABG pH (7.35-7.45) ABG pCO2 (35-45) mmHg ABG pO2 (83-108) mmHg ABG Total CO2 (19-24) mmol/L ABG O2 Saturation (94-97) % Potassium (3.5-5.1) mmol/L Chloride (98-107) mmol/L Carbon Dioxide (22-30) mmol/L BUN (9-20) mg/dL Glucose (74-99) mg/dL POC Glucose (mg/dL) 133 H 134 H (75-99) mg/dL Calcium (8.4-10.2) mg/dL AST (17-59) U/L Alkaline Phosphatase (38-126) U/L Total Protein (6.3-8.2) g/dL Albumin (3.5-5.0) g/dL Crossmatch 09/25/18 09/25/18 Range/Units 05:30 06:41 WBC (3.8-10.6) k/uL RBC (4.30-5.90) m/uL Hgb (13.0-17.5) gm/dL Hct (39.0-53.0) % Plt Count (150-450) k/uL Neutrophils # (1.3-7.7) k/uL Lymphocytes # (1.0-4.8) k/uL PT (9.0-12.0) sec INR (<1.2) Fibrinogen (200-500) mg/dL ABG pH (7.35-7.45) ABG pCO2 (35-45) mmHg ABG pO2 (83-108) mmHg ABG Total CO2 (19-24) mmol/L ABG O2 Saturation (94-97) % Potassium (3.5-5.1) mmol/L Chloride 108 H (98-107) mmol/L Carbon Dioxide (22-30) mmol/L BUN 23 H (9-20) mg/dL Glucose 124 H (74-99) mg/dL POC Glucose (mg/dL) 136 H (75-99) mg/dL Calcium 7.8 L (8.4-10.2) mg/dL AST 68 H (17-59) U/L Alkaline Phosphatase 35 L (38-126) U/L Total Protein 4.5 L (6.3-8.2) g/dL Albumin 2.8 L (3.5-5.0) g/dL Crossmatch - Imaging and Cardiology Chest x-ray: report reviewed, image reviewed Assessment and Plan Assessment: 1. Bicuspid aortic valve with moderate to severe aortic stenosis, status post aortic valve replacement with a 27 mm Magna Ease pericardial bioprosthesis 2. Double vessel coronary artery disease with left main disease, totally occluded left anterior descending artery, status post triple coronary artery bypass grafting with SNELL to the LAD, SVG to diag 1, SVG to OM1 3. Preserved left ventricular systolic function 4. Hypertension 5. Hyperlipidemia 6. Morbid obesity 7. Previous tobacco dependence 8. Mild COPD with preoperative FEV1 64% of predicted 9. Postoperative acute blood loss anemia Plan: 1. Continue low-dose aspirin, statin, Plavix, beta misbah therapy. Will increase beta misbah therapy as tolerated. 2. Discontinue IV nitro. Wean levo as tolerated. 3. Wean from mechanical ventilation as tolerated. Ventilator management per Dr. Holland. 4. Once extubated, encourage incentive spirometry use 10 times every hour while awake. 5. Encourage continued smoking cessation. Bronchodilators per pulmonology. 6. Will transition propofol to Precedex for less anxiety through extubation. 7. Will monitor daily labs and x-rays. Electrolyte replacement per protocol. No transfusion at this point. Will give 1 g calcium chloride today. 8. Pain control with current medication regimen. 9. Insulin management per primary care service. 10. GI prophylaxis with Protonix, DVT prophylaxis with subcu heparin and SCDs. 11. Will keep chest tubes, Cordis, arterial line, Sauceda catheter for another 24 hours. 12. Will discontinue [place] once weaned off IV levo. 13. More recommendations to follow dependent on patient's progress. Time with Patient: Greater than 30
[2018-09-25] MEDS ORDERED: ASPIRIN 325 MG TAB PO SCH (09:00)
[2018-09-25] MEDS ORDERED: METOPROLOL TARTRATE 12.5 MG TAB PO SCH (09:00)
[2018-09-25] MEDS ORDERED: PANTOPRAZOLE 40 MG/10 ML VIAL IVP SCH (09:00)
[2018-09-25 09:12] LABS: Glucose,Whole Blood 135 mg/dL (75-99)
[2018-09-25] MEDS: DEXMEDETOMIDINE/0.9% NACL(PMX) 400 MCG in EMPTY BAG 1 BAG IV SCH (09:25)
[2018-09-25] MEDS: CLOPIDOGREL 75 MG TAB PO SCH (09:41)
[2018-09-25] MEDS: METOPROLOL TARTRATE 12.5 MG TAB PO SCH ×2 (09:41→21:43)
[2018-09-25] MEDS: ASPIRIN 81 MG PO SCH (09:41)
[2018-09-25] MEDS: NOREPINEPHRINE 8 MG in SODIUM CHLORIDE 0.9% 250 ML IV SCH (09:51)
[2018-09-25 10:21] LABS: Glucose,Whole Blood 134 mg/dL (75-99)
[2018-09-25] MEDS ORDERED: BENZOCAINE SPRAY 1 CAN TOPICAL PRN (11:05)
[2018-09-25] MEDS ORDERED: BENZOCAINE SPRAY 1 CAN TOPICAL STA (11:06)
[2018-09-25 11:07] LABS: Glucose,Whole Blood 125 mg/dL (75-99)
[2018-09-25] MEDS: ALBUMIN HUMAN 5% 250 ML in EMPTY BAG 1 BAG IVPB PRN ×4 (11:09→22:06)
--- NOTE | 2018-09-25 11:19 | P.CRDCN ---
History of Present Illness Consult date: 09/25/18 History of present illness: This is a 67-year-old gentleman with history of aortic stenosis and coronary artery disease. He was found to have moderate to severe aortic stenosis and also coronary artery disease with total occlusion of the LAD about 50-60% of the left main and 70% of the OM branch. Patient underwent hiatal coronary bypass surgery with the SNELL graft to the LAD, vein graft to the diagonal and vein graft to the OM branch. Patient also had isolation of the left atrial appendage. Patient is still intubated. Hemodynamically stable with some mild low blood pressures. His cardiac output is more than several liters. It was only in the range of 3.4 L before. Urine output is good. Patient has been maintaining sinus rhythm. Patient is still intubated. Attempts are being made to extubate him this morning. Patient is on small dose of Levophed for blood pressure support. No Cardec arrhythmias are noted Review of Systems Not obtained Past Medical History Past Medical History: Hyperlipidemia, Hypertension Additional Past Medical History / Comment(s): Moderate to severe aortic valve stenosis with a peak gradient of 60 mmHg and a mean gradient of 30 mmHg across the aortic valve and moderate aortic valve regurgitation. History of Any Multi-Drug Resistant Organisms: None Reported Past Surgical History: Heart Catheterization, Orthopedic Surgery Additional Past Surgical History / Comment(s): ORIF LEFT ANKLE-Hardware later removed, LACERATION REPAIR OF LEFT FOREARM,RT BREAST I&D,FAISAL,Heartcath x2 Past Anesthesia/Blood Transfusion Reactions: No Reported Reaction Additional Past Anesthesia/Blood Transfusion Reaction / Comment(s): hx no blood transfusion Smoking Status: Former smoker - Past Family History Mother Family Medical History: Cancer Additional Family Medical History / Comment(s): LUNG CANCER Father Family Medical History: No Reported History Medications and Allergies Home Medications Medication Instructions Recorded Confirmed Type Naproxen Sodium [Aleve] 220 mg PO Q12HR PRN 07/07/14 09/24/18 History Hydrochlorothiazide 12.5 mg PO DAILY 06/16/15 09/24/18 History Lisinopril 10 mg PO QAM 06/16/15 09/24/18 History Rosuvastatin Calcium [Crestor] 20 mg PO DAILY 06/16/15 09/24/18 History Vit C/E/Zn/Coppr/Lutein/Zeaxan 1 cap PO DAILY 06/16/15 09/24/18 History [Preservision Areds 2 Softgel] Aspirin 325 mg PO DAILY 07/29/18 09/24/18 History Cholecalciferol [Vitamin D3] 2,000 unit PO DAILY 08/12/18 09/24/18 History Mupirocin 2% Oint [Bactroban 2% 1 applic NASAL BID 08/12/18 09/24/18 History Oint] [place]-3/Dha/Epa/Fish Oil [Fish Oil 1 cap PO DAILY 08/12/18 09/24/18 History 500 mg Softgel] Metoprolol Tartrate [Lopressor] 12.5 mg PO BID 09/19/18 09/24/18 History Allergies Allergy/AdvReac Type Severity Reaction Status Date / Time No Known Allergies Allergy Verified 09/24/18 17:23 Physical Exam Vitals: Vital Signs Temp Pulse Pulse Resp Pulse Ox 09/25/18 08:30 91 09/25/18 08:15 91 09/25/18 07:45 92 24 98 09/25/18 07:30 92 24 98 09/25/18 07:15 93 23 97 09/25/18 07:00 93 25 H 97 09/25/18 06:45 92 23 96 09/25/18 06:30 91 20 98 09/25/18 06:15 93 25 H 97 09/25/18 06:00 93 25 H 97 09/25/18 05:45 93 25 H 97 09/25/18 05:30 95 13 97 09/25/18 05:15 92 11 L 100 09/25/18 05:00 98 25 H 98 09/25/18 04:45 90 36 H 96 09/25/18 04:30 93 26 H 97 09/25/18 04:15 89 25 H 97 09/25/18 04:00 37.8 F L 90 25 H 97 09/25/18 03:45 90 27 H 97 09/25/18 03:30 89 23 98 09/25/18 03:15 89 25 H 97 09/25/18 03:00 90 26 H 97 09/25/18 02:45 90 26 H 97 09/25/18 02:30 90 30 H 97 09/25/18 02:15 92 27 H 97 09/25/18 02:00 93 27 H 97 09/25/18 01:45 89 29 H 97 09/25/18 01:30 110 H 32 H 95 09/25/18 01:15 88 31 H 98 09/25/18 01:00 87 27 H 98 09/25/18 00:45 84 28 H 98 09/25/18 00:30 79 28 H 98 09/25/18 00:15 89 29 H 98 09/25/18 00:00 90 37 H 95 09/24/18 23:45 85 27 H 97 09/24/18 23:30 37.9 F L 85 26 H 98 09/24/18 23:15 92 29 H 98 09/24/18 23:00 87 30 H 98 09/24/18 22:45 85 26 H 98 09/24/18 22:30 89 26 H 97 09/24/18 22:15 90 29 H 97 09/24/18 22:00 89 27 H 98 09/24/18 21:45 89 28 H 98 09/24/18 21:30 90 26 H 99 09/24/18 21:15 89 22 99 09/24/18 21:00 90 26 H 99 09/24/18 20:45 91 26 H 98 09/24/18 20:30 90 27 H 98 09/24/18 20:15 98 34 H 98 09/24/18 20:05 86 09/24/18 20:00 99.2 F 85 23 100 09/24/18 19:51 89 09/24/18 19:45 90 30 H 100 09/24/18 19:30 82 25 H 100 09/24/18 19:15 82 26 H 100 09/24/18 19:00 84 28 H 100 09/24/18 18:45 82 29 H 100 09/24/18 18:30 82 26 H 100 09/24/18 18:15 85 27 H 100 09/24/18 18:02 90 09/24/18 18:00 91 28 H 98 09/24/18 17:45 85 27 H 100 09/24/18 17:30 89 25 H 100 09/24/18 17:15 86 23 100 09/24/18 17:00 87 73 30 H 100 09/24/18 16:59 86 12 Intake and Output 09/24/18 09/25/18 09/25/18 22:59 06:59 14:59 Intake Total 724.204 4597.807 167.776 Output Total 6836 1087 Balance -5903.259 84.807 167.776 Intake: IV 708.0 770.5 ACETAMINOPHEN IV (For NPO 200 ) 1,000 mg In Empty Bag 1 bag @ 400 mls/hr IVPB Q6HR [facility] Rx#:[id number] CO/CI 50 80 Calcium Gluconate 1 gm In 100 Sodium Chloride 0.9% 100 ml @ 100 mls/hr IVPB ONCE ONE Rx#:[id number] Lactated Ringers 1,000 ml 300 450 @ 50 mls/hr IV .Q20H [facility] Rx#:[id number] Nitroglycerin-D5w Pmx 50 9.0 13.5 mg In Dextrose/Water 1 250ml.bag @ 5 MCG/MIN 1.5 mls/hr IV .Q24H [facility] Rx#: [id number] cryo 240 pressure bag 9 27 Intake, IV Titration 91.741 371.307 167.776 Amount Insulin Regular 100 unit 13.248 46.258 24.924 In Sodium Chloride 0.9% 100 ml @ Per Protocol IV .Q0M [facility] Rx#:[id number] Norepinephrine 8 mg In 9.866 210.808 53.507 Sodium Chloride 0.9% 250 ml @ 0.04 MCG/KG/MIN 9.47 mls/hr IV .Q24H [facility] Rx#: [id number] Propofol 1,000 mg In 68.627 114.241 89.345 Empty Bag 1 bag @ Titrate IV .Q0M [facility] Rx#: [id number] Blood Product 133 Pooled Cryoprecipitate 0 Unit [id number] Pooled Cryoprecipitate 133 Unit [id number] Other 30 Output: Chest Tube Drainage 871 387 Chest Tube Bilateral 820 350 Mediastinal Chest Tube Left Lateral 51 37 Chest Drainage 40 Right Calf 40 Urine 1425 700 Estimated Blood Loss 4500 Other: Voiding Method Indwelling Catheter Indwelling Catheter Weight 129 kg ABP, PAP, CO, CI - Last 8 Hours Arterial Blood Pressure 91/52 Arterial Blood Pressure 88/50 Arterial Blood Pressure 102/58 Arterial Blood Pressure 102/57 Arterial Blood Pressure 87/53 Arterial Blood Pressure 108/59 Arterial Blood Pressure 118/60 Arterial Blood Pressure 117/59 Arterial Blood Pressure 103/57 Arterial Blood Pressure 122/81 Arterial Blood Pressure 136/63 Arterial Blood Pressure 115/53 Arterial Blood Pressure 133/63 Arterial Blood Pressure 120/61 Arterial Blood Pressure 119/58 Arterial Blood Pressure 113/57 Arterial Blood Pressure 109/55 Pulmonary Artery Pressure 32/19 Pulmonary Artery Pressure 32/20 Pulmonary Artery Pressure 31/20 Pulmonary Artery Pressure 34/20 Pulmonary Artery Pressure 31/18 Pulmonary Artery Pressure 30/19 Pulmonary Artery Pressure 35/22 Pulmonary Artery Pressure 36/22 Pulmonary Artery Pressure 34/22 Pulmonary Artery Pressure 37/23 Pulmonary Artery Pressure 60/27 Pulmonary Artery Pressure 33/17 Pulmonary Artery Pressure 34/19 Pulmonary Artery Pressure 35/20 Pulmonary Artery Pressure 32/17 Pulmonary Artery Pressure 33/19 Pulmonary Artery Pressure 34/19 Pulmonary Artery Pressure 32/18 Cardiac Output 7.4 Cardiac Output 7.4 Cardiac Output 7.4 Cardiac Output 7.4 Cardiac Output 7.4 Cardiac Output 7.4 Cardiac Output 7.4 Cardiac Output 7.4 Cardiac Output 7.4 Cardiac Output 7.4 Cardiac Output 7.4 Cardiac Output 7.4 Cardiac Output 7.4 Cardiac Output 7.4 Cardiac Output 7.4 Cardiac Output 5.8 Cardiac Output 5.8 Cardiac Output 5.8 Cardiac Index 3.2 GENERAL EXAM: Patient intubated and off sedation a few minutes ago. HEENT: Normocephalic. Normal reaction of pupils, equal size, normal range of extraocular motion. No erythema or exudates in the throat. NECK: No masses, no nuchal rigidity. CHEST: No chest wall deformity. LUNGS: Admission breath sounds at bases HEART: S1 and S2 normal. Distant heart sounds ABDOMEN: No hepatosplenomegaly, normal bowel sounds, no guarding or rigidity. SKIN: No rashes CENTRAL NERVOUS SYSTEM: Deferred EXTREMITIES: No cyanosis, clubbing or edema. Results 09/25/18 05:30 09/25/18 05:30 Cardiac Enzymes 09/24/18 09/24/18 09/25/18 Range/Units 17:15 20:00 01:17 AST 47 55 64 H (17-59) U/L 09/25/18 Range/Units 05:30 AST 68 H (17-59) U/L Coagulation 09/24/18 09/24/18 09/25/18 Range/Units 17:15 20:00 05:30 PT 12.5 H 10.9 (9.0-12.0) sec APTT 29.4 29.9 24.2 (22.0-30.0) sec 09/25/18 Range/Units 05:30 PT 10.9 (9.0-12.0) sec APTT (22.0-30.0) sec CBC 09/24/18 09/24/18 09/25/18 Range/Units 17:15 20:00 01:17 WBC 10.9 H 9.7 10.5 (3.8-10.6) k/uL RBC 2.94 L 2.95 L 2.62 L (4.30-5.90) m/uL Hgb 9.0 L D 8.6 L 7.7 L (13.0-17.5) gm/dL Hct 26.8 L 26.5 L 23.5 L (39.0-53.0) % Plt Count 121 L 143 L 137 L (150-450) k/uL 09/25/18 Range/Units 05:30 WBC 8.4 (3.8-10.6) k/uL RBC 2.55 L (4.30-5.90) m/uL Hgb 7.4 L (13.0-17.5) gm/dL Hct 22.8 L (39.0-53.0) % Plt Count 138 L (150-450) k/uL Comprehensive Metabolic Panel 09/24/18 09/24/18 09/25/18 Range/Units 17:15 20:00 01:17 Sodium 141 138 139 (137-145) mmol/L Potassium 5.0 5.9 H 5.1 (3.5-5.1) mmol/L Chloride 110 H 109 H 109 H (98-107) mmol/L Carbon Dioxide 25 21 L 23 (22-30) mmol/L BUN 22 H 22 H 22 H (9-20) mg/dL Creatinine 0.75 0.78 0.82 (0.66-1.25) mg/dL Glucose 120 H 159 H 131 H (74-99) mg/dL Calcium 7.7 L 8.2 L 7.9 L (8.4-10.2) mg/dL AST 47 55 64 H (17-59) U/L ALT 30 34 34 (21-72) U/L Alkaline Phosphatase 22 L 38 32 L (38-126) U/L Total Protein 4.6 L 4.9 L 4.6 L (6.3-8.2) g/dL Albumin 3.0 L 3.2 L 2.9 L (3.5-5.0) g/dL 09/25/18 Range/Units 05:30 Sodium 138 (137-145) mmol/L Potassium 4.4 (3.5-5.1) mmol/L Chloride 108 H (98-107) mmol/L Carbon Dioxide 25 (22-30) mmol/L BUN 23 H (9-20) mg/dL Creatinine 0.80 (0.66-1.25) mg/dL Glucose 124 H (74-99) mg/dL Calcium 7.8 L (8.4-10.2) mg/dL AST 68 H (17-59) U/L ALT 33 (21-72) U/L Alkaline Phosphatase 35 L (38-126) U/L Total Protein 4.5 L (6.3-8.2) g/dL Albumin 2.8 L (3.5-5.0) g/dL Current Medications Generic Name Dose Route Start Last Admin Trade Name Freq PRN Reason Stop Dose Admin Hydrocodone Bitart/Acetaminophen 2 each 09/25/18 15:25 [place] 5-325 PO Q4HR PRN Severe Pain Hydrocodone Bitart/Acetaminophen 1 each 09/25/18 15:25 [place] 5-325 PO Q4HR PRN Moderate Pain Albuterol/Ipratropium 3 ml 09/24/18 15:56 Duoneb 0.5 Mg-3 Mg/3 Ml Soln INHALATION RT-Q2H PRN Shortness Of Breath Or Wheezing Albuterol/Ipratropium 3 ml 09/24/18 21:27 09/25/18 08:07 Duoneb 0.5 Mg-3 Mg/3 Ml Soln INHALATION 3 ml RT-QID [facility]O Administration Aspirin 81 mg 09/25/18 09:00 09/25/18 09:41 Aspirin PO 81 mg DAILY [facility] Administration Atorvastatin Calcium 40 mg 09/25/18 15:26 Lipitor PO DAILY [facility] Benzocaine 1 spray 09/25/18 11:05 Hurricaine Nebo TOPICAL QID PRN Skin Irritation Benzocaine/Menthol 1 each 09/24/18 15:56 Cepacol Lozenge MUCOUS MEM Q2H PRN Sore Throat Bisacodyl 10 mg 09/25/18 15:27 Dulcolax RECTAL DAILY PRN Constipation Cholecalciferol 2,000 unit 09/25/18 12:00 Vitamin D3 PO DAILY@1200 [facility] Clopidogrel Bisulfate 75 mg 09/25/18 09:00 09/25/18 09:41 Plavix PO 75 mg DAILY [facility] Administration Heparin Sodium (Porcine) 5,000 unit 09/25/18 00:00 09/25/18 09:40 Heparin SQ 5,000 unit Q8HR [facility] Administration Acetaminophen 1,000 mg/ IV 100 mls @ 400 mls/hr 09/24/18 18:00 09/25/18 06:33 Solution IVPB 09/25/18 18:01 400 mls/hr Q6HR [facility] Administration Albumin Human 250 ml/ IV 250 mls @ 250 mls/hr 09/24/18 15:56 09/25/18 11:09 Solution IVPB 09/26/18 15:57 250 mls/hr Q1HR PRN Administration For Volume Amiodarone HCl 150 mg/ 103 mls @ 618 mls/hr 09/24/18 15:56 Dextrose/Water IV .Q10M PRN A.FIB/FLUTTER Protocol Amiodarone HCl 360 mg/ 200 mls @ 33.33 mls/hr 09/24/18 15:56 Dextrose/Water IV .Q6H1M PRN A.FIB/FLUTTER Protocol 1 MG/MIN Amiodarone HCl 300 mg/ 250 mls @ 25 mls/hr 09/24/18 15:56 Dextrose/Water IV .Q10H PRN A.FIB/FLUTTER Protocol 0.5 MG/MIN Clevidipine 25 mg/ IV Solution 50 mls @ 2 mls/hr 09/24/18 15:56 09/24/18 21: 11 IV Not Given .Q24H [facility] Protocol 1 MG/HR Insulin Human Regular 100 unit 101 mls @ 0 mls/hr 09/24/18 15:56 09/25/18 10: 56 / Sodium Chloride IV 5.5 unit/hr .Q0M [facility] 5.55 mls/hr Titration Protocol Per Protocol Lactated Ringer's 1,000 mls @ 50 mls/hr 09/24/18 15:56 09/24/18 17:32 Lactated Ringers IV 50 mls/hr .Q20H [facility] Administration Propofol 1,000 mg/ IV Solution 100 mls @ 0 mls/hr 09/24/18 15:56 09/25/18 10: 56 IV 0 mcg/kg/min .Q0M [facility] 0 mls/hr Titration Protocol Titrate Norepinephrine Bitartrate 8 mg 258 mls @ 9.47 mls/hr 09/24/18 16:45 09/25/18 11:13 / Sodium Chloride IV 0 mcg/kg/min .Q24H [facility] 0 mls/hr Titration Protocol 0.04 MCG/KG/MIN Dexmedetomidine HCl 400 mcg/ 100 mls @ 0 mls/hr 09/25/18 07:30 09/25/18 09:25 IV Solution IV 09/26/18 07:19 0.5 mcg/kg/hr .Q0M [facility] 16.12 mls/hr Administration Protocol Titrate Magnesium Hydroxide 2,400 mg 09/25/18 15:27 Milk Of Magnesia PO BID PRN Constipation Metoclopramide HCl 10 mg 09/24/18 15:56 Reglan IVP Q4H PRN Nausea And Vomiting Metoprolol Tartrate 12.5 mg 09/25/18 09:00 09/25/18 09:41 Lopressor PO 12.5 mg BID [facility] Administration Miscellaneous Information 1 each 09/24/18 15:56 Magnesium Per Protocol MISCELLANE DAILY PRN Per Protocol Protocol Miscellaneous Information 1 each 09/24/18 15:56 Phosphorus Per Protocol MISCELLANE DAILY PRN Per Protocol Protocol Miscellaneous Information 1 each 09/24/18 15:56 Potassium Per Protocol MISCELLANE DAILY PRN Per Protocol Protocol Morphine Sulfate 2 mg 09/24/18 15:56 09/25/18 01:19 Morphine Sulfate (Inj) IVP 2 mg Q2H PRN Administration Severe Pain Mupirocin 1 applic 09/24/18 21:00 09/25/18 09:40 Bactroban Oint NASAL 09/27/18 21:01 1 applic BID [facility] Administration Ondansetron HCl 4 mg 09/24/18 15:56 Zofran IVP Q6HR PRN Nausea And Vomiting Oxycodone HCl 10 mg 09/24/18 15:56 09/24/18 23:24 Oxyir PO 09/25/18 15:57 10 mg Q4H PRN Administration Severe Pain Oxycodone HCl 5 mg 09/24/18 15:56 Oxyir PO 09/25/18 15:57 Q4H PRN Moderate Pain Pantoprazole Sodium 40 mg 09/25/18 09:00 09/25/18 09:40 Protonix IVP 40 mg DAILY [facility] Administration Senna/Docusate Sodium 2 each 09/25/18 21:00 Senokot-S PO HS [facility] Sodium Chloride 10 ml 09/24/18 21:00 09/25/18 09:41 Saline Flush IV 10 ml BID [facility]O Administration Intake and Output 09/24/18 09/25/18 09/25/18 22:59 06:59 14:59 Intake Total 507.832 9274.807 167.776 Output Total 6836 1087 Balance -5903.259 84.807 167.776 Intake: IV 708.0 770.5 ACETAMINOPHEN IV (For NPO 200 ) 1,000 mg In Empty Bag 1 bag @ 400 mls/hr IVPB Q6HR [facility] Rx#:[id number] CO/CI 50 80 Calcium Gluconate 1 gm In 100 Sodium Chloride 0.9% 100 ml @ 100 mls/hr IVPB ONCE ONE Rx#:[id number] Lactated Ringers 1,000 ml 300 450 @ 50 mls/hr IV .Q20H [facility] Rx#:[id number] Nitroglycerin-D5w Pmx 50 9.0 13.5 mg In Dextrose/Water 1 250ml.bag @ 5 MCG/MIN 1.5 mls/hr IV .Q24H [facility] Rx#: [id number] cryo 240 pressure bag 9 27 Intake, IV Titration 91.741 371.307 167.776 Amount Insulin Regular 100 unit 13.248 46.258 24.924 In Sodium Chloride 0.9% 100 ml @ Per Protocol IV .Q0M [facility] Rx#:[id number] Norepinephrine 8 mg In 9.866 210.808 53.507 Sodium Chloride 0.9% 250 ml @ 0.04 MCG/KG/MIN 9.47 mls/hr IV .Q24H [facility] Rx#: [id number] Propofol 1,000 mg In 68.627 114.241 89.345 Empty Bag 1 bag @ Titrate IV .Q0M [facility] Rx#: [id number] Blood Product 133 Pooled Cryoprecipitate 0 Unit [id number] Pooled Cryoprecipitate 133 Unit [id number] Other 30 Output: Chest Tube Drainage 871 387 Chest Tube Bilateral 820 350 Mediastinal Chest Tube Left Lateral 51 37 Chest Drainage 40 Right Calf 40 Urine 1425 700 Estimated Blood Loss 4500 Other: Voiding Method Indwelling Catheter Indwelling Catheter Weight 129 kg 09/25/18 05:30 09/25/18 05:30 EKG Interpretations (text) Sinus rhythm Assessment and Plan (1) Status post aortic valve replacement Current Visit: Yes Status: Acute Code(s): Z95.2 - PRESENCE OF PROSTHETIC HEART VALVE SNOMED Code(s): 7078646423815 (2) Status post aorto-coronary artery bypass graft Current Visit: Yes Status: Acute Code(s): Z95.1 - PRESENCE OF AORTOCORONARY BYPASS GRAFT SNOMED Code(s): 530670393 (3) COPD (chronic obstructive pulmonary disease) Current Visit: Yes Status: Chronic Code(s): J44.9 - CHRONIC OBSTRUCTIVE PULMONARY DISEASE, UNSPECIFIED SNOMED Code(s): 36339005 (4) Hyperlipidemia Current Visit: No Status: Chronic Code(s): E78.5 - HYPERLIPIDEMIA, UNSPECIFIED SNOMED Code(s): 27694904 (5) Hypertension Current Visit: No Status: Chronic Code(s): I10 - ESSENTIAL (PRIMARY) HYPERTENSION SNOMED Code(s): 42399548 (6) Morbid obesity Current Visit: No Status: Chronic Code(s): E66.01 - MORBID (SEVERE) OBESITY DUE TO EXCESS CALORIES SNOMED Code(s): 966277588 Plan: Continue current management. Attempts are being made to wean him off the respirator. Patient is on small dose of Levophed. Overall, patient is hemodynamically stable. We'll follow him
--- NOTE | 2018-09-25 11:51 | P.CNPUL ---
History of Present Illness Consult date: 09/25/18 Reason for consult: other (Status post aortic valve replacement and CABG postoperative day #1) Chief complaint: Status post aortic valve replacement and CABG. Mechanically ventilated History of present illness: This is a 67-year-old white male with history of severe aortic stenosis, and significant coronary artery disease, recent cardiac catheterization showed total occlusion of LAD, 50-60% left main disease, 70% of the obtuse marginal branch. Patient underwent elective coronary artery bypass surgery with SNELL to LAD, saphenous vein graft to diagonal and saphenous vein graft to obtuse marginal branch. Aortic valve was replaced using a 27 mm pericardial bioprosthesis magna ease. Postoperatively, patient was on mechanical ventilation, and I was asked to see him on consultation. I reviewed his ventilator settings last night, and these were adjusted accordingly. Patient was significantly agitated last night, and could not be weaned because he required significant propofol infusion. This morning the patient is being aroused, we have switched his propofol to Precedex, and we plan to give the patient a weaning trial today. Patient was on IMV rate of 16, PEEP at 10 which I cut down to 5, and FiO2 was 40%. ABG this morning showed a pO2 of 101 pCO2 of 40 pH of 7.42. Chest x-ray showed mostly left lower lobe atelectasis. Patient remains on mechanical ventilation this morning, and he is sedated, in the process of being switched from propofol to Precedex to facilitate weaning process in the next couple of hours. Review of Systems ROS unobtainable: due to endotracheal tube Past Medical History Past Medical History: Hyperlipidemia, Hypertension Additional Past Medical History / Comment(s): Moderate to severe aortic valve stenosis with a peak gradient of 60 mmHg and a mean gradient of 30 mmHg across the aortic valve and moderate aortic valve regurgitation. History of Any Multi-Drug Resistant Organisms: None Reported Past Surgical History: Heart Catheterization, Orthopedic Surgery Additional Past Surgical History / Comment(s): ORIF LEFT ANKLE-Hardware later removed, LACERATION REPAIR OF LEFT FOREARM,RT BREAST I&D,FAISAL,Heartcath x2 Past Anesthesia/Blood Transfusion Reactions: No Reported Reaction Additional Past Anesthesia/Blood Transfusion Reaction / Comment(s): hx no blood transfusion Smoking Status: Former smoker - Past Family History Mother Family Medical History: Cancer Additional Family Medical History / Comment(s): LUNG CANCER Father Family Medical History: No Reported History Medications and Allergies Home Medications Medication Instructions Recorded Confirmed Type Naproxen Sodium [Aleve] 220 mg PO Q12HR PRN 07/07/14 09/24/18 History Hydrochlorothiazide 12.5 mg PO DAILY 06/16/15 09/24/18 History Lisinopril 10 mg PO QAM 06/16/15 09/24/18 History Rosuvastatin Calcium [Crestor] 20 mg PO DAILY 06/16/15 09/24/18 History Vit C/E/Zn/Coppr/Lutein/Zeaxan 1 cap PO DAILY 06/16/15 09/24/18 History [Preservision Areds 2 Softgel] Aspirin 325 mg PO DAILY 07/29/18 09/24/18 History Cholecalciferol [Vitamin D3] 2,000 unit PO DAILY 08/12/18 09/24/18 History Mupirocin 2% Oint [Bactroban 2% 1 applic NASAL BID 08/12/18 09/24/18 History Oint] [place]-3/Dha/Epa/Fish Oil [Fish Oil 1 cap PO DAILY 08/12/18 09/24/18 History 500 mg Softgel] Metoprolol Tartrate [Lopressor] 12.5 mg PO BID 09/19/18 09/24/18 History Allergies Allergy/AdvReac Type Severity Reaction Status Date / Time No Known Allergies Allergy Verified 09/24/18 17:23 Physical Exam Vitals: Vital Signs Temp Pulse Pulse Resp Pulse Ox 09/25/18 08:30 91 09/25/18 08:15 91 09/25/18 07:45 92 24 98 09/25/18 07:30 92 24 98 09/25/18 07:15 93 23 97 09/25/18 07:00 93 25 H 97 09/25/18 06:45 92 23 96 09/25/18 06:30 91 20 98 09/25/18 06:15 93 25 H 97 09/25/18 06:00 93 25 H 97 09/25/18 05:45 93 25 H 97 09/25/18 05:30 95 13 97 09/25/18 05:15 92 11 L 100 09/25/18 05:00 98 25 H 98 09/25/18 04:45 90 36 H 96 09/25/18 04:30 93 26 H 97 09/25/18 04:15 89 25 H 97 09/25/18 04:00 37.8 F L 90 25 H 97 09/25/18 03:45 90 27 H 97 09/25/18 03:30 89 23 98 09/25/18 03:15 89 25 H 97 09/25/18 03:00 90 26 H 97 09/25/18 02:45 90 26 H 97 09/25/18 02:30 90 30 H 97 09/25/18 02:15 92 27 H 97 09/25/18 02:00 93 27 H 97 09/25/18 01:45 89 29 H 97 09/25/18 01:30 110 H 32 H 95 09/25/18 01:15 88 31 H 98 09/25/18 01:00 87 27 H 98 09/25/18 00:45 84 28 H 98 09/25/18 00:30 79 28 H 98 09/25/18 00:15 89 29 H 98 09/25/18 00:00 90 37 H 95 09/24/18 23:45 85 27 H 97 09/24/18 23:30 37.9 F L 85 26 H 98 09/24/18 23:15 92 29 H 98 09/24/18 23:00 87 30 H 98 09/24/18 22:45 85 26 H 98 09/24/18 22:30 89 26 H 97 09/24/18 22:15 90 29 H 97 09/24/18 22:00 89 27 H 98 09/24/18 21:45 89 28 H 98 09/24/18 21:30 90 26 H 99 09/24/18 21:15 89 22 99 09/24/18 21:00 90 26 H 99 09/24/18 20:45 91 26 H 98 09/24/18 20:30 90 27 H 98 09/24/18 20:15 98 34 H 98 09/24/18 20:05 86 09/24/18 20:00 99.2 F 85 23 100 09/24/18 19:51 89 09/24/18 19:45 90 30 H 100 09/24/18 19:30 82 25 H 100 05 19:15 82 26 H 100 05 19:00 84 28 H 100 09/24/18 18:45 82 29 H 100 03/05/19 18:30 82 26 H 100 03/05/19 18:15 85 27 H 100 09/24/18 18:02 90 09/24/18 18:00 91 28 H 98 09/24/18 17:45 85 27 H 100 09/24/18 17:30 89 25 H 100 09/24/18 17:15 86 23 100 09/24/18 17:00 87 73 30 H 100 09/24/18 16:59 86 12 Intake and Output 09/24/18 09/25/18 09/25/18 22:59 06:59 14:59 Intake Total 708.337 9954.807 204.694 Output Total 6836 1087 Balance -5903.259 84.807 204.694 Intake: IV 708.0 770.5 ACETAMINOPHEN IV (For NPO 200 ) 1,000 mg In Empty Bag 1 bag @ 400 mls/hr IVPB Q6HR [facility] Rx#:[id number] CO/CI 50 80 Calcium Gluconate 1 gm In 100 Sodium Chloride 0.9% 100 ml @ 100 mls/hr IVPB ONCE ONE Rx#:[id number] Lactated Ringers 1,000 ml 300 450 @ 50 mls/hr IV .Q20H [facility] Rx#:[id number] Nitroglycerin-D5w Pmx 50 9.0 13.5 mg In Dextrose/Water 1 250ml.bag @ 5 MCG/MIN 1.5 mls/hr IV .Q24H [facility]O Rx#: [id number] cryo 240 pressure bag 9 27 Intake, IV Titration 91.741 371.307 204.694 Amount Dexmedetomidine/0.9% NaCl 36.918 (Pmx) 400 mcg In Empty Bag 1 bag @ Titrate IV . Q0M [facility] Rx#:[id number] Insulin Regular 100 unit 13.248 46.258 24.924 In Sodium Chloride 0.9% 100 ml @ Per Protocol IV .Q0M [facility] Rx#:[id number] Norepinephrine 8 mg In 9.866 210.808 53.507 Sodium Chloride 0.9% 250 ml @ 0.04 MCG/KG/MIN 9.47 mls/hr IV .Q24H [facility] Rx#: [id number] Propofol 1,000 mg In 68.627 114.241 89.345 Empty Bag 1 bag @ Titrate IV .Q0M [facility]O Rx#: [id number] Blood Product 133 Pooled Cryoprecipitate 0 Unit [id number] Pooled Cryoprecipitate 133 Unit [id number] Other 30 Output: Chest Tube Drainage 871 387 Chest Tube Bilateral 820 350 Mediastinal Chest Tube Left Lateral 51 37 Chest Drainage 40 Right Calf 40 Urine 1425 700 Estimated Blood Loss 4500 Other: Voiding Method Indwelling Catheter Indwelling Catheter Weight 129 kg ABP, PAP, CO, CI - Last 8 Hours Arterial Blood Pressure 91/52 Arterial Blood Pressure 88/50 Arterial Blood Pressure 102/58 Arterial Blood Pressure 102/57 Arterial Blood Pressure 87/53 Arterial Blood Pressure 108/59 Arterial Blood Pressure 118/60 Arterial Blood Pressure 117/59 Arterial Blood Pressure 103/57 Arterial Blood Pressure 122/81 Arterial Blood Pressure 136/63 Arterial Blood Pressure 115/53 Arterial Blood Pressure 133/63 Arterial Blood Pressure 120/61 Arterial Blood Pressure 119/58 Arterial Blood Pressure 113/57 Pulmonary Artery Pressure 32/19 Pulmonary Artery Pressure 32/20 Pulmonary Artery Pressure 31/20 Pulmonary Artery Pressure 34/20 Pulmonary Artery Pressure 31/18 Pulmonary Artery Pressure 30/19 Pulmonary Artery Pressure 35/22 Pulmonary Artery Pressure 36/22 Pulmonary Artery Pressure 34/22 Pulmonary Artery Pressure 37/23 Pulmonary Artery Pressure 60/27 Pulmonary Artery Pressure 33/17 Pulmonary Artery Pressure 34/19 Pulmonary Artery Pressure 35/20 Pulmonary Artery Pressure 32/17 Pulmonary Artery Pressure 33/19 Pulmonary Artery Pressure 34/19 Cardiac Output 7.4 Cardiac Output 7.4 Cardiac Output 7.4 Cardiac Output 7.4 Cardiac Output 7.4 Cardiac Output 7.4 Cardiac Output 7.4 Cardiac Output 7.4 Cardiac Output 7.4 Cardiac Output 7.4 Cardiac Output 7.4 Cardiac Output 7.4 Cardiac Output 7.4 Cardiac Output 7.4 Cardiac Output 7.4 Cardiac Output 5.8 Cardiac Output 5.8 Cardiac Index 3.2 Physical Exam: Revealed an obese 67-year-old white male on mechanical ventilation, sedated, in no distress. Head: Atraumatic, normocephalic. HEENT:[Neck is supple.] [No neck masses.] [No thyromegaly.] [No JVD.] PERRLA, EOMI, no icterus. Moist mucous membranes, endotracheal tube is noted to be intact Chest: Diminished breath sounds at the bases, no crackles or rhonchi or wheezes. Cardiac Exam: [Normal S1 and S2, no S3 gallop, 2/6 systolic murmur thought the precordium. Abdomen: [Obese, Soft, nontender, no megaly, no rebound, no guarding, normal bowel sounds.] Extremities: [No clubbing, no edema, no cyanosis.] Neurological Exam: Cannot be assessed, patient is sedated and mechanically ventilated. Psychiatric: Cannot be addressed Results - Laboratory Findings CBC and BMP: 09/25/18 05:30 09/25/18 05:30 ABG ABG pH 7.42 (7.35-7.45) 09/25/18 07:58 ABG pCO2 40 mmHg (35-45) 09/25/18 07:58 ABG pO2 101 mmHg (83-108) 09/25/18 07:58 ABG O2 Saturation 98.7 % (94-97) H 09/25/18 07:58 PT/INR, D-dimer PT 10.9 sec (9.0-12.0) 09/25/18 05:30 INR 1.0 (<1.2) 09/25/18 05:30 Abnormal lab findings: Abnormal Labs 09/17/18 09/24/18 09/24/18 08:45 17:15 17:15 WBC 10.9 H RBC 2.94 L Hgb 9.0 L D Hct 26.8 L Plt Count 121 L Neutrophils # 8.7 H Lymphocytes # PT INR Fibrinogen ABG pH ABG pCO2 ABG pO2 ABG HCO3 ABG Total CO2 ABG O2 Saturation Potassium Chloride 110 H Carbon Dioxide BUN 22 H Glucose 120 H POC Glucose (mg/dL) Calcium 7.7 L AST Alkaline Phosphatase 22 L Total Protein 4.6 L Albumin 3.0 L Crossmatch See Detail 09/24/18 09/24/18 09/24/18 17:15 17:15 17:31 WBC RBC Hgb Hct Plt Count Neutrophils # Lymphocytes # PT 12.5 H INR 1.2 H Fibrinogen 102 L ABG pH 7.25 L ABG pCO2 55 H ABG pO2 349 H ABG HCO3 ABG Total CO2 26 H ABG O2 Saturation 100.0 H Potassium Chloride Carbon Dioxide BUN Glucose POC Glucose (mg/dL) 125 H Calcium AST Alkaline Phosphatase Total Protein Albumin Crossmatch 09/24/18 09/24/18 09/24/18 18:43 19:58 20:00 WBC RBC 2.95 L Hgb 8.6 L Hct 26.5 L Plt Count 143 L Neutrophils # 8.1 H Lymphocytes # 0.8 L PT INR Fibrinogen ABG pH ABG pCO2 ABG pO2 ABG HCO3 ABG Total CO2 ABG O2 Saturation Potassium Chloride Carbon Dioxide BUN Glucose POC Glucose (mg/dL) 166 H 167 H Calcium AST Alkaline Phosphatase Total Protein Albumin Crossmatch 09/24/18 09/24/18 09/24/18 20:00 21:08 22:14 WBC RBC Hgb Hct Plt Count Neutrophils # Lymphocytes # PT INR Fibrinogen ABG pH ABG pCO2 ABG pO2 ABG HCO3 ABG Total CO2 ABG O2 Saturation Potassium 5.9 H Chloride 109 H Carbon Dioxide 21 L BUN 22 H Glucose 159 H POC Glucose (mg/dL) 168 H 154 H Calcium 8.2 L AST Alkaline Phosphatase Total Protein 4.9 L Albumin 3.2 L Crossmatch 09/24/18 09/25/18 09/25/18 23:11 00:07 01:12 WBC RBC Hgb Hct Plt Count Neutrophils # Lymphocytes # PT INR Fibrinogen ABG pH ABG pCO2 ABG pO2 ABG HCO3 ABG Total CO2 ABG O2 Saturation Potassium Chloride Carbon Dioxide BUN Glucose POC Glucose (mg/dL) 156 H 151 H 146 H Calcium AST Alkaline Phosphatase Total Protein Albumin Crossmatch 09/25/18 09/25/18 09/25/18 01:17 01:17 02:05 WBC RBC 2.62 L Hgb 7.7 L Hct 23.5 L Plt Count 137 L Neutrophils # 8.1 H Lymphocytes # PT INR Fibrinogen ABG pH ABG pCO2 ABG pO2 ABG HCO3 ABG Total CO2 ABG O2 Saturation Potassium Chloride 109 H Carbon Dioxide BUN 22 H Glucose 131 H POC Glucose (mg/dL) 141 H Calcium 7.9 L AST 64 H Alkaline Phosphatase 32 L Total Protein 4.6 L Albumin 2.9 L Crossmatch 09/25/18 09/25/18 09/25/18 03:14 04:08 05:30 WBC RBC 2.55 L Hgb 7.4 L Hct 22.8 L Plt Count 138 L Neutrophils # Lymphocytes # PT INR Fibrinogen ABG pH ABG pCO2 ABG pO2 ABG HCO3 ABG Total CO2 ABG O2 Saturation Potassium Chloride Carbon Dioxide BUN Glucose POC Glucose (mg/dL) 133 H 134 H Calcium AST Alkaline Phosphatase Total Protein Albumin Crossmatch 09/25/18 09/25/18 09/25/18 05:30 06:41 07:52 WBC RBC Hgb Hct Plt Count Neutrophils # Lymphocytes # PT INR Fibrinogen ABG pH ABG pCO2 ABG pO2 ABG HCO3 ABG Total CO2 ABG O2 Saturation Potassium Chloride 108 H Carbon Dioxide BUN 23 H Glucose 124 H POC Glucose (mg/dL) 136 H 127 H Calcium 7.8 L AST 68 H Alkaline Phosphatase 35 L Total Protein 4.5 L Albumin 2.8 L Crossmatch 09/25/18 09/25/18 09/25/18 07:58 09:00 10:10 WBC RBC Hgb Hct Plt Count Neutrophils # Lymphocytes # PT INR Fibrinogen ABG pH ABG pCO2 ABG pO2 ABG HCO3 26 H ABG Total CO2 27 H ABG O2 Saturation 98.7 H Potassium Chloride Carbon Dioxide BUN Glucose POC Glucose (mg/dL) 135 H 134 H Calcium AST Alkaline Phosphatase Total Protein Albumin Crossmatch 09/25/18 10:55 WBC RBC Hgb Hct Plt Count Neutrophils # Lymphocytes # PT INR Fibrinogen ABG pH ABG pCO2 ABG pO2 ABG HCO3 ABG Total CO2 ABG O2 Saturation Potassium Chloride Carbon Dioxide BUN Glucose POC Glucose (mg/dL) 125 H Calcium AST Alkaline Phosphatase Total Protein Albumin Crossmatch - Diagnostic Findings Chest x-ray: image reviewed (As noted in HPI.) Assessment and Plan Assessment: Impression: 1 bicuspid aortic valve with moderate to severe aortic stenosis, status post aortic valve replacement postoperative day #1 2vessel coronary artery disease with left main disease, status post CABG postoperative day #1 3 postoperative left lower lobe atelectasis, expected finding after such surgery. 4 multiple comorbidities including mild to moderate COPD, FEV1 is in the range of 64% preoperatively. Morbid obesity, hyperlipidemia, hypertension, Recommendation: Continue mechanical ventilation, we will likely plan short weaning trial today, and if tolerated will proceed to extubation. We are in the process of switching propofol to Precedex. Continue low-dose aspirin, statin Plavix beta blockers. Once extubated, encourage incentive spirometry, early ambulation, continue bronchodilators, continue to monitor chest x-ray on a daily basis, continue GI and DVT prophylaxis, and we will continue to follow closely. Prognosis at this point is relatively guarded. Time with Patient: Greater than 30
[2018-09-25 12:17] LABS: Glucose,Whole Blood 130 mg/dL (75-99)
[2018-09-25 13:20] LABS: Glucose,Whole Blood 132 mg/dL (75-99)
[2018-09-25] MEDS: INSULIN REGULAR 100 UNIT in SODIUM CHLORIDE 0.9% 100 ML IV SCH (13:39)
[2018-09-25 14:15] LABS: Glucose,Whole Blood 135 mg/dL (75-99)
[2018-09-25] MEDS ORDERED: diphenhydrAMINE 50 MG/ML 1 ML VIAL IVP PRN (14:54)
[2018-09-25] MEDS: LACTATED RINGERS 1,000 ML IV SCH (15:02)
[2018-09-25 15:23] LABS: Glucose,Whole Blood 126 mg/dL (75-99)
[2018-09-25] MEDS ORDERED: MAGNESIUM HYDROXIDE 2,400 MG/10 ML CUP PO PRN (15:27)
[2018-09-25] MEDS ORDERED: BISACODYL 10 MG SUPP RECTAL PRN (15:27)
[2018-09-25 16:17] LABS: Glucose,Whole Blood 128 mg/dL (75-99)
[2018-09-25] MEDS: CLEVIDIPINE BUTYRATE 25 MG in EMPTY BAG 1 BAG IV SCH (17:17)
[2018-09-25 17:22] LABS: Glucose,Whole Blood 126 mg/dL (75-99)
[2018-09-25 18:17] LABS: Glucose,Whole Blood 126 mg/dL (75-99)
[2018-09-25] MEDS: ATORVASTATIN 40 MG TAB PO SCH (18:18)
[2018-09-25] MEDS: CHOLECALCIFEROL 1,000 UNIT TAB PO SCH (18:18)
[2018-09-25 19:15] LABS: Glucose,Whole Blood 136 mg/dL (75-99)
[2018-09-25 20:29] LABS: Glucose,Whole Blood 130 mg/dL (75-99)
[2018-09-25] MEDS: HYDROcodone/APAP 5-325MG 1 EACH TAB PO PRN (21:43)
[2018-09-25] MEDS: SENNOSIDES-DOCUSATE SODIUM 1 EACH TAB PO SCH (21:46)
[2018-09-25 22:02] LABS: Glucose,Whole Blood 147 mg/dL (75-99)
--- NOTE | 2018-09-25 23:53 | PN ---
PROGRESS NOTE DATE OF SERVICE: 09/25/2018 PRESENTING COMPLAINT: Status post CABG. INTERVAL HISTORY: Patient is status post coronary artery bypass and aortic valve replacement with a prosthetic valve. I saw the patient this morning. Patient was extubated, sitting up, on nasal cannula. Patient this morning was started on Precedex drip. Patient also is currently on insulin and norepinephrine drip. Somewhat tired, lethargic, able to answer some questions. REVIEW OF SYSTEMS: Attempted, but patient is rather tired. CURRENT MEDICATIONS: Reviewed. They include IV Precedex, IV insulin, IV norepinephrine. PHYSICAL EXAMINATION: Temperature 97.8, pulse 80, respiration 30, blood pressure 94/48, pulse ox 94% on nasal cannula. GENERAL APPEARANCE: Propped up, tired-appearing. A little lethargic. EYES: Pupils equal. Conjunctivae pale. NECK: JVD unable to assess. Mass not palpable. RESPIRATORY: Effort increased. LUNGS: Distant breath sounds. CARDIOVASCULAR: Heart sounds muffled. No edema. ABDOMEN: Distended, soft. Liver and spleen not palpable. PSYCHIATRY: Patient is able answer some questions. INVESTIGATIONS: Hemoglobin 7.4, potassium 4.4, platelets 138, albumin 2.8. ASSESSMENT: 1. Status post coronary artery bypass with aortic valve replacement with prosthetic valve. 2. Essential hypertension. 3. Hyperlipidemia. 4. Acute postoperative blood loss anemia, as expected from surgery. 5. Dilutional thrombocytopenia. 6. Morbid obesity; body mass index of 41.1. 7. Hyperkalemia, corrected. 8. Acute respiratory failure with ventilator assist postoperatively. Now patient is extubated, on nasal cannula. PLAN: Continue current medication and treatment plan. Currently no family is present. Follow closely. MMODL / IJN: [id number] /
[2018-09-26 00:47] LABS: Glucose,Whole Blood 131 mg/dL (75-99)
[2018-09-26] MEDS: HEPARIN SODIUM,PORCINE 5,000 UNIT/ML 1 ML VIAL SQ SCH ×3 (01:08→16:06)
[2018-09-26] MEDS: HYDROcodone/APAP 5-325MG 1 EACH TAB PO PRN ×6 (01:08→21:48)
[2018-09-26] MEDS: DEXMEDETOMIDINE/0.9% NACL(PMX) 400 MCG in EMPTY BAG 1 BAG IV SCH (01:09)
[2018-09-26] MEDS: NOREPINEPHRINE 8 MG in SODIUM CHLORIDE 0.9% 250 ML IV SCH (01:13)
[2018-09-26 02:51] LABS: Glucose,Whole Blood 148 mg/dL (75-99)
[2018-09-26] MEDS: INSULIN REGULAR 100 UNIT in SODIUM CHLORIDE 0.9% 100 ML IV SCH (06:48)
[2018-09-26 06:57] LABS: Glucose,Whole Blood 209 mg/dL (75-99)
[2018-09-26 07:10] LABS: Magnesium 2.2 mg/dL (1.6-2.3); Phosphorus 2.9 mg/dL (2.5-4.5)
[2018-09-26] MEDS: IPRATROPIUM-ALBUTEROL 3 ML NEB INHALATION SCH ×4 (07:36→19:11)
[2018-09-26 07:48] LABS: ALT 123 U/L (21-72); AST 189 U/L (17-59); Albumin 3.2 g/dL (3.5-5.0); Alkaline Phosphatase 48 U/L (38-126); Anion Gap 7 mmol/L; Blood Urea Nitrogen 25 mg/dL (9-20); Calcium 8.6 mg/dL (8.4-10.2); Carbon Dioxide 24 mmol/L (22-30); Chloride 108 mmol/L (98-107); Glucose 184 mg/dL (74-99); Potassium 4.8 mmol/L (3.5-5.1); Sodium 139 mmol/L (137-145); Total Bilirubin 1.1 mg/dL (0.2-1.3)
--- NOTE | 2018-09-26 08:22 | XR ---
EXAMINATION TYPE: XR chest 1V portable DATE OF EXAM: 09/26/2018 Comparison: 09/25/2018 Clinical History: 67-year-old male Post Operative Cardiac Surgery Findings: Right IJ sheath with Ingalls-Karol catheter remain in place. The catheter tip is somewhat distal, probabl y in the right interlobar pulmonary artery just beyond the main pulmonary artery. Median sternotomy w ires with post-CABG changes. Left basilar chest tube. No appreciable pneumothorax. Interval extubation and removal of NG tube. Heart remains enlarged with mild diffuse interstitial pro minence. Residual strandy atelectasis noted in the lower lungs with significant improved aeration fro m prior exam. Impression: 1. Right Ingalls-Karol catheter tip somewhat distal in position likely just beyond the right main pulmona ry artery, possibly in the proximal aspect of the interlobar pulmonary artery. 2. Cardiomegaly and possible mild pulmonary vascular congestion not significantly changed. 3. However, there has been significant improvement in aeration at the left base.
[2018-09-26 08:27] LABS: Basophils % (A) 0 %; Eosinophils % (A) 1 %; Lymphocytes # (A) 1.1 k/uL (1.0-4.8); Lymphocytes % (A) 13 %; MCH 31.1 pg (25.0-35.0); MCHC 33.3 g/dL (31.0-37.0); MCV 93.4 fL (80.0-100.0); Monocytes # (A) 0.5 k/uL (0-1.0); Monocytes % (A) 7 %; Neutrophils # (A) 6.3 k/uL (1.3-7.7); Neutrophils % (A) 78 %; Platelet Count 126 k/uL (150-450); RBC 1.91 m/uL (4.30-5.90); RDW 14.5 % (11.5-15.5); WBC 8.1 k/uL (3.8-10.6)
[2018-09-26 08:29] LABS: HGB 5.9 gm/dL (13.0-17.5)
[2018-09-26 08:30] LABS: HCT 17.8 % (39.0-53.0)
[2018-09-26 08:47] LABS: Glucose,Whole Blood 149 mg/dL (75-99)
[2018-09-26] MEDS: ASPIRIN 81 MG PO SCH (08:59)
[2018-09-26] MEDS: CLOPIDOGREL 75 MG TAB PO SCH (08:59)
[2018-09-26] MEDS: CHOLECALCIFEROL 1,000 UNIT TAB PO SCH (08:59)
[2018-09-26] MEDS: KETOROLAC 30 MG/ML 1 ML VIAL IVP SCH ×3 (09:00→18:24)
[2018-09-26] MEDS: PANTOPRAZOLE 40 MG TABLET PO SCH (09:00)
[2018-09-26] MEDS: ATORVASTATIN 40 MG TAB PO SCH (09:01)
[2018-09-26] MEDS: LACTATED RINGERS 1,000 ML IV SCH (09:09)
[2018-09-26] MEDS: MUPIROCIN 2% OINT 22 GM TUBE NASAL SCH ×2 (09:10→21:50)
[2018-09-26] MEDS: METOPROLOL TARTRATE 12.5 MG TAB PO SCH ×2 (09:13→20:35)
[2018-09-26 10:14] VITALS: BMI 47.2
[2018-09-26 10:30] LABS: Glucose,Whole Blood 136 mg/dL (75-99)
[2018-09-26 10:32] LABS: Basophils % (A) 0 %; Eosinophils # (A) 0.1 k/uL (0-0.7); Eosinophils % (A) 1 %; Lymphocytes # (A) 1.4 k/uL (1.0-4.8); Lymphocytes % (A) 16 %; MCH 30.3 pg (25.0-35.0); MCHC 32.7 g/dL (31.0-37.0); MCV 92.5 fL (80.0-100.0); Mean Platelet Volume 8.2; Monocytes # (A) 0.4 k/uL (0-1.0); Monocytes % (A) 5 %; Neutrophils # (A) 6.5 k/uL (1.3-7.7); Neutrophils % (A) 76 %; Platelet Count 131 k/uL (150-450); RBC 1.97 m/uL (4.30-5.90); RDW 14.7 % (11.5-15.5); WBC 8.6 k/uL (3.8-10.6)
[2018-09-26 10:33] LABS: HCT 18.2 % (39.0-53.0)
[2018-09-26 12:07] LABS: Glucose,Whole Blood 116 mg/dL (75-99)
--- NOTE | 2018-09-26 12:17 | P.PN ---
Subjective Progress Note Date: 09/26/18 Principal diagnosis: Status post aortic valve replacement and CABG, postoperative day #2. This is a 67-year-old white male with history of severe aortic stenosis, and significant coronary artery disease, recent cardiac catheterization showed total occlusion of LAD, 50-60% left main disease, 70% of the obtuse marginal branch. Patient underwent elective coronary artery bypass surgery with SNELL to LAD, saphenous vein graft to diagonal and saphenous vein graft to obtuse marginal branch. Aortic valve was replaced using a 27 mm pericardial bioprosthesis magna ease. Postoperatively, patient was on mechanical ventilation, and I was asked to see him on consultation. I reviewed his ventilator settings last night, and these were adjusted accordingly. Patient was significantly agitated last night, and could not be weaned because he required significant propofol infusion. This morning the patient is being aroused, we have switched his propofol to Precedex, and we plan to give the patient a weaning trial today. Patient was on IMV rate of 16, PEEP at 10 which I cut down to 5, and FiO2 was 40%. ABG this morning showed a pO2 of 101 pCO2 of 40 pH of 7.42. Chest x-ray showed mostly left lower lobe atelectasis. Patient remains on mechanical ventilation this morning, and he is sedated, in the process of being switched from propofol to Precedex to facilitate weaning process in the next couple of hours. Patient was reevaluated today on 09/26/2018, he was extubated yesterday uneventfully. No major issues overnight, he had slight agitation, otherwise the patient has been doing well. Today no cough no wheezing no shortness of breath, patient is sitting in a bedside chair, and relatively asymptomatic. Still doing poorly with incentive spirometry, but he is working on it. Chest x-ray this morning showed cardiomegaly, and mild pulmonary vascular congestion. Left lung base seems to be aerating better today. His hemoglobin this morning is 6, and the patient would like to be transfused by cardiac surgery. Basic metabolic profile is normal, renal profile is normal. Patient is hemodynamically stable, not requiring any pressors or any inotropes Objective - Vital Signs Vital signs: Vital Signs Temp 98.3 F 09/26/18 12:03 Pulse 82 09/26/18 12:10 Resp 20 09/26/18 12:03 BP 118/57 09/26/18 12:03 Pulse Ox 98 09/26/18 12:03 Intake & Output 09/25/18 09/26/18 09/26/18 18:59 06:59 18:59 Intake Total 2160.339 1385.521 595.587 Output Total 1073 572 360 Balance 1087.339 813.521 235.587 Weight 141 kg 141 kg Intake: IV 1898 952 265 ACETAMINOPHEN IV (For NPO 200 ) 1,000 mg In Empty Bag 1 bag @ 400 mls/hr IVPB Q6HR [facility] Rx#:[id number] Albumin Human 5% 250 ml @ 1000 250 mls/hr IVPB .Q1H [facility] Rx#:[id number] Albumin Human 5% 250 ml 250 In Empty Bag 1 bag @ 250 mls/hr IVPB Q1HR PRN Rx#: [id number] CO/CI 110 60 Lactated Ringers 1,000 ml 450 600 250 @ 50 mls/hr IV .Q20H [facility] Rx#:[id number] ceFAZolin 2,000 mg In 30 Sodium Chloride 0.9% 30 ml @ Per Protocol IVPB ONCE ONE Rx#:[id number] pressure bag 108 42 15 Intake, IV Titration 262.339 252.521 150.587 Amount Dexmedetomidine/0.9% NaCl 79.485 20.515 75.104 (Pmx) 400 mcg In Empty Bag 1 bag @ Titrate IV . Q0M [facility] Rx#:[id number] Insulin Regular 100 unit 40.002 99.186 39.062 In Sodium Chloride 0.9% 100 ml @ Per Protocol IV .Q0M [facility] Rx#:[id number] Norepinephrine 8 mg In 53.507 132.820 36.421 Sodium Chloride 0.9% 250 ml @ 0.04 MCG/KG/MIN 9.47 mls/hr IV .Q24H [facility] Rx#: [id number] Propofol 1,000 mg In 89.345 Empty Bag 1 bag @ Titrate IV .Q0M [facility] Rx#: [id number] Oral 60 180 Blood Product 121 0 Pooled Cryoprecipitate 121 Unit [id number] Rc Cpda-1 Unit 0 [id number] Output: Chest Tube Drainage 428 312 60 Chest Tube Bilateral 290 260 60 Mediastinal Chest Tube Left Lateral 138 52 0 Chest Drainage 30 20 Right Calf 30 20 Urine 615 240 300 Other: Voiding Method Indwelling Catheter Incontinent Incontinent # Voids 1 1 ABP, PAP, CO, CI - Last Documented Arterial Blood Pressure 96/46 Pulmonary Artery Pressure 271/271 Cardiac Output 8.6 Cardiac Index 3.9 - Exam Physical Exam: Revealed a 67-year-old white male, obese in no distress. On nasal cannula. Head: Atraumatic, normocephalic. HEENT:[Neck is supple.] [No neck masses.] [No thyromegaly.] [No JVD.] Chest: [Clear throughout, no crackles, no rhonchi, no wheezes.] Cardiac Exam: [Normal S1 and S2, no S3 gallop, no murmur.] Abdomen: [Soft, nontender, no megaly, no rebound, no guarding, normal bowel sounds.] Extremities: [No clubbing, no edema, no cyanosis.] Neurological Exam: [No focal neurologic deficit.] Psychiatric: Normal mood affect and mental status examination. - Labs CBC & Chem 7: 09/26/18 09:30 09/26/18 06:30 Labs: Abnormal Lab Results - Last 24 Hours (Table) 09/17/18 09/25/18 09/25/18 Range/Units 08:45 12:06 13:08 RBC (4.30-5.90) m/uL Hgb (13.0-17.5) gm/dL Hct (39.0-53.0) % Plt Count (150-450) k/uL Chloride (98-107) mmol/L BUN (9-20) mg/dL Glucose (74-99) mg/dL POC Glucose (mg/dL) 130 H 132 H (75-99) mg/dL AST (17-59) U/L ALT (21-72) U/L Total Protein (6.3-8.2) g/dL Albumin (3.5-5.0) g/dL Crossmatch See Detail 09/25/18 09/25/18 09/25/18 Range/Units 14:03 15:12 16:05 RBC (4.30-5.90) m/uL Hgb (13.0-17.5) gm/dL Hct (39.0-53.0) % Plt Count (150-450) k/uL Chloride (98-107) mmol/L BUN (9-20) mg/dL Glucose (74-99) mg/dL POC Glucose (mg/dL) 135 H 126 H 128 H (75-99) mg/dL AST (17-59) U/L ALT (21-72) U/L Total Protein (6.3-8.2) g/dL Albumin (3.5-5.0) g/dL Crossmatch 09/25/18 09/25/18 09/25/18 Range/Units 17:11 18:05 19:04 RBC (4.30-5.90) m/uL Hgb (13.0-17.5) gm/dL Hct (39.0-53.0) % Plt Count (150-450) k/uL Chloride (98-107) mmol/L BUN (9-20) mg/dL Glucose (74-99) mg/dL POC Glucose (mg/dL) 126 H 126 H 136 H (75-99) mg/dL AST (17-59) U/L ALT (21-72) U/L Total Protein (6.3-8.2) g/dL Albumin (3.5-5.0) g/dL Crossmatch 09/25/18 09/25/18 09/26/18 Range/Units 20:15 21:51 00:35 RBC (4.30-5.90) m/uL Hgb (13.0-17.5) gm/dL Hct (39.0-53.0) % Plt Count (150-450) k/uL Chloride (98-107) mmol/L BUN (9-20) mg/dL Glucose (74-99) mg/dL POC Glucose (mg/dL) 130 H 147 H 131 H (75-99) mg/dL AST (17-59) U/L ALT (21-72) U/L Total Protein (6.3-8.2) g/dL Albumin (3.5-5.0) g/dL Crossmatch 09/26/18 09/26/18 09/26/18 Range/Units 02:39 06:30 06:30 RBC 1.91 L (4.30-5.90) m/uL Hgb 5.9 L* D (13.0-17.5) gm/dL Hct 17.8 L* (39.0-53.0) % Plt Count 126 L (150-450) k/uL Chloride 108 H (98-107) mmol/L BUN 25 H (9-20) mg/dL Glucose 184 H (74-99) mg/dL POC Glucose (mg/dL) 148 H (75-99) mg/dL AST 189 H (17-59) U/L ALT 123 H (21-72) U/L Total Protein 5.0 L (6.3-8.2) g/dL Albumin 3.2 L (3.5-5.0) g/dL Crossmatch 09/26/18 09/26/18 09/26/18 Range/Units 06:45 08:36 09:30 RBC 1.97 L (4.30-5.90) m/uL Hgb 6.0 L* (13.0-17.5) gm/dL Hct 18.2 L* (39.0-53.0) % Plt Count 131 L (150-450) k/uL Chloride (98-107) mmol/L BUN (9-20) mg/dL Glucose (74-99) mg/dL POC Glucose (mg/dL) 209 H 149 H (75-99) mg/dL AST (17-59) U/L ALT (21-72) U/L Total Protein (6.3-8.2) g/dL Albumin (3.5-5.0) g/dL Crossmatch 09/26/18 09/26/18 Range/Units 10:19 11:50 RBC (4.30-5.90) m/uL Hgb (13.0-17.5) gm/dL Hct (39.0-53.0) % Plt Count (150-450) k/uL Chloride (98-107) mmol/L BUN (9-20) mg/dL Glucose (74-99) mg/dL POC Glucose (mg/dL) 136 H 116 H (75-99) mg/dL AST (17-59) U/L ALT (21-72) U/L Total Protein (6.3-8.2) g/dL Albumin (3.5-5.0) g/dL Crossmatch Assessment and Plan Assessment: Impression: 1 bicuspid aortic valve with moderate to severe aortic stenosis, status post aortic valve replacement postoperative day #2 22 vessel coronary artery disease with left main disease, status post CABG postoperative day #2 3 postoperative left lower lobe atelectasis, expected finding after such surgery. Resolved based on the chest x-ray today 09/26/2018. 4 multiple comorbidities including mild to moderate COPD, FEV1 is in the range of 64% preoperatively. Morbid obesity, hyperlipidemia, hypertension, Recommendation: Continue incentive spirometry, ambulate the patient, discontinue Leonore-Karol catheter, continue bronchodilators, continue aspirin and Plavix beta blockers and statins. Continue GI and DVT prophylaxis. Chest x-ray today is reassuring, we'll continue to follow. Time with Patient: Less than 30
--- NOTE | 2018-09-26 12:54 | P.PN ---
Subjective Progress Note Date: 09/26/18 Principal diagnosis: Bicuspid aortic valve with moderate to severe aortic stenosis, double vessel coronary artery disease with left main disease with a totally occluded left anterior descending artery, preserved left ventricular systolic function, obesity, hyperlipidemia, hypertension, congestive heart failure, previous tobacco dependence, mild COPD with preoperative FEV1 64% of predicted. POD #2 triple coronary artery bypass grafting using the left internal mammary artery to the left anterior descending artery, reverse saphenous vein graft from the aorta to the first diagonal artery, reverse saphenous vein graft from the aorta to the first obtuse marginal artery. Aortic valve replacement using a 27 mm pericardial bioprosthesis Magna Ease. Exclusion of the left atrial appendage using a 40 mm AtriClip. Endoscopic vein harvesting of the right greater saphenous vein from the groin to above the ankle level. Intraoperative transesophageal echocardiogram and epi-aortic scanning. Intraoperative graft flow measurements using the [employer] system. Postoperative acute blood loss anemia, expected outcome given cardiopulmonary bypass and hemodilution. Patient's currently sitting up in a recliner in no acute distress. Was successfully extubated yesterday at 11:29 AM. Does complain of postoperative soreness. Patient was a little rowdy last night, pulled out his arterial line and almost pulled out one of his chest tubes. Remains hemodynamically stable on no inotropes or pressors. Hemoglobin was a bit low this morning and he will receive 1 unit of blood. No new complaints. Objective - Vital Signs Vital signs: Vital Signs Temp 97.9 F 09/26/18 08:00 Pulse 90 09/26/18 08:15 Resp 22 09/26/18 08:15 BP 105/37 09/26/18 08:15 Pulse Ox 94 L 09/26/18 08:15 Intake & Output 09/25/18 09/26/18 09/26/18 18:59 06:59 18:59 Intake Total 2160.339 1385.521 184.195 Output Total 1073 572 Balance 1087.339 813.521 184.195 Weight 141 kg Intake: IV 1898 952 53 ACETAMINOPHEN IV (For NPO 200 ) 1,000 mg In Empty Bag 1 bag @ 400 mls/hr IVPB Q6HR [facility] Rx#:[id number] Albumin Human 5% 250 ml @ 1000 250 mls/hr IVPB .Q1H [facility] Rx#:[id number] Albumin Human 5% 250 ml 250 In Empty Bag 1 bag @ 250 mls/hr IVPB Q1HR PRN Rx#: [id number] CO/CI 110 60 Lactated Ringers 1,000 ml 450 600 50 @ 50 mls/hr IV .Q20H [facility] Rx#:[id number] ceFAZolin 2,000 mg In 30 Sodium Chloride 0.9% 30 ml @ Per Protocol IVPB ONCE ONE Rx#:[id number] pressure bag 108 42 3 Intake, IV Titration 262.339 252.521 131.195 Amount Dexmedetomidine/0.9% NaCl 79.485 20.515 75.104 (Pmx) 400 mcg In Empty Bag 1 bag @ Titrate IV . Q0M [facility] Rx#:[id number] Insulin Regular 100 unit 40.002 99.186 19.67 In Sodium Chloride 0.9% 100 ml @ Per Protocol IV .Q0M [facility] Rx#:[id number] Norepinephrine 8 mg In 53.507 132.820 36.421 Sodium Chloride 0.9% 250 ml @ 0.04 MCG/KG/MIN 9.47 mls/hr IV .Q24H [facility] Rx#: [id number] Propofol 1,000 mg In 89.345 Empty Bag 1 bag @ Titrate IV .Q0M [facility] Rx#: [id number] Oral 60 Blood Product 121 Pooled Cryoprecipitate 121 Unit [id number] Output: Chest Tube Drainage 428 312 Chest Tube Bilateral 290 260 Mediastinal Chest Tube Left Lateral 138 52 Chest Drainage 30 20 Right Calf 30 20 Urine 615 240 Other: Voiding Method Indwelling Catheter Incontinent # Voids 1 1 ABP, PAP, CO, CI - Last Documented Arterial Blood Pressure 96/46 Pulmonary Artery Pressure 271/271 Cardiac Output 8.6 Cardiac Index 3.9 - Constitutional General appearance: Present: cooperative, no acute distress, obese - Respiratory Details: Lungs sounds diminished bilaterally. Respirations even, nonlabored. Currently on 4 L nasal cannula with oxygen saturation 91-93%. Able to achieve 1000 mL on incentive spirometry. Strong cough. Mediastinal chest tube to continuous wall suction, 170 mL serosanguineous drainage overnight, 550 mL in the last 24 hours. Left pleural chest tube to continuous wall suction, 20 mL serosanguineous drainage overnight, 130 mL in the last 24 hours. No air leaks present. - Cardiovascular Details: S1, S2 present. Regular rate and rhythm, sinus rhythm on telemetry. Sternum stable. A/V epicardial pacemaker wires present, connected to generator, VVI mode with backup rate 50 bpm. Palpable peripheral pulses bilaterally. No edema present. No calf pain or tenderness noted. Right internal jugular Damascus/Cordis, right radial arterial line present. Last CO/CI 9.2/3.9 no inotropes or pressors Heart hugger, antiembolism stockings, SCDs present. - Gastrointestinal Gastrointestinal Comment(s): Abdomen soft, nontender, nondistended, obese. Hypoactive bowel sounds present 4 quadrants. Positive belching, negative flatus. Tolerating clear liquids. - Genitourinary Genitourinary Comment(s): Sauceda was present draining clear, yellow urine. Was discontinued this morning. Patient has voided 150 mL plus he has been incontinent. - Integumentary Integumentary Comment(s): Skin is warm and dry with evidence of good perfusion. Anterior chest incision well approximated and covered with dry intact dressing. Right lower extremity EVH site well approximated, LACHO drain present with 20 mL drainage. - Neurologic Neurologic: Present: CNII-XII intact - Musculoskeletal Musculoskeletal: Present: strength equal bilaterally - Psychiatric Psychiatric: Present: A&O x's 3, appropriate affect - Allied health notes Allied health notes reviewed: nursing - Labs CBC & Chem 7: 09/26/18 09:30 09/26/18 06:30 Labs: Abnormal Lab Results - Last 24 Hours (Table) 09/25/18 09/25/18 09/25/18 Range/Units 10:10 10:55 12:06 RBC (4.30-5.90) m/uL Hgb (13.0-17.5) gm/dL Hct (39.0-53.0) % Plt Count (150-450) k/uL Chloride (98-107) mmol/L BUN (9-20) mg/dL Glucose (74-99) mg/dL POC Glucose (mg/dL) 134 H 125 H 130 H (75-99) mg/dL AST (17-59) U/L ALT (21-72) U/L Total Protein (6.3-8.2) g/dL Albumin (3.5-5.0) g/dL 09/25/18 09/25/18 09/25/18 Range/Units 13:08 14:03 15:12 RBC (4.30-5.90) m/uL Hgb (13.0-17.5) gm/dL Hct (39.0-53.0) % Plt Count (150-450) k/uL Chloride (98-107) mmol/L BUN (9-20) mg/dL Glucose (74-99) mg/dL POC Glucose (mg/dL) 132 H 135 H 126 H (75-99) mg/dL AST (17-59) U/L ALT (21-72) U/L Total Protein (6.3-8.2) g/dL Albumin (3.5-5.0) g/dL 09/25/18 09/25/18 09/25/18 Range/Units 16:05 17:11 18:05 RBC (4.30-5.90) m/uL Hgb (13.0-17.5) gm/dL Hct (39.0-53.0) % Plt Count (150-450) k/uL Chloride (98-107) mmol/L BUN (9-20) mg/dL Glucose (74-99) mg/dL POC Glucose (mg/dL) 128 H 126 H 126 H (75-99) mg/dL AST (17-59) U/L ALT (21-72) U/L Total Protein (6.3-8.2) g/dL Albumin (3.5-5.0) g/dL 09/25/18 09/25/18 09/25/18 Range/Units 19:04 20:15 21:51 RBC (4.30-5.90) m/uL Hgb (13.0-17.5) gm/dL Hct (39.0-53.0) % Plt Count (150-450) k/uL Chloride (98-107) mmol/L BUN (9-20) mg/dL Glucose (74-99) mg/dL POC Glucose (mg/dL) 136 H 130 H 147 H (75-99) mg/dL AST (17-59) U/L ALT (21-72) U/L Total Protein (6.3-8.2) g/dL Albumin (3.5-5.0) g/dL 03/02/0709/26/18 09/26/18 Range/Units 00:35 02:39 06:30 RBC (4.30-5.90) m/uL Hgb (13.0-17.5) gm/dL Hct (39.0-53.0) % Plt Count (150-450) k/uL Chloride 108 H (98-107) mmol/L BUN 25 H (9-20) mg/dL Glucose 184 H (74-99) mg/dL POC Glucose (mg/dL) 131 H 148 H (75-99) mg/dL AST 189 H (17-59) U/L ALT 123 H (21-72) U/L Total Protein 5.0 L (6.3-8.2) g/dL Albumin 3.2 L (3.5-5.0) g/dL 09/26/18 09/26/18 09/26/18 Range/Units 06:30 06:45 08:36 RBC 1.91 L (4.30-5.90) m/uL Hgb 5.9 L* D (13.0-17.5) gm/dL Hct 17.8 L* (39.0-53.0) % Plt Count 126 L (150-450) k/uL Chloride (98-107) mmol/L BUN (9-20) mg/dL Glucose (74-99) mg/dL POC Glucose (mg/dL) 209 H 149 H (75-99) mg/dL AST (17-59) U/L ALT (21-72) U/L Total Protein (6.3-8.2) g/dL Albumin (3.5-5.0) g/dL - Imaging and Cardiology Chest x-ray: report reviewed, image reviewed Assessment and Plan Assessment: 1. Bicuspid aortic valve with moderate to severe aortic stenosis, status post aortic valve replacement with a 27 mm Magna Ease pericardial bioprosthesis 2. Double vessel coronary artery disease with left main disease, totally occluded left anterior descending artery, status post triple coronary artery bypass grafting with SNELL to the LAD, SVG to diag 1, SVG to OM1 3. Preserved left ventricular systolic function 4. Hypertension 5. Hyperlipidemia 6. Morbid obesity 7. Previous tobacco dependence 8. Mild COPD with preoperative FEV1 64% of predicted 9. Postoperative acute blood loss anemia Plan: 1. Continue low-dose aspirin, statin, Plavix, beta misbah therapy. Will increase beta misbah therapy as tolerated. 2. Wean O2 as tolerated. Encourage incentive spirometry use 10 times every hour while awake. 3. Encourage continued smoking cessation. Bronchodilators per pulmonology. 4. Increase activity, ambulate as tolerated. PT/OT/cardiac rehab following. 5. Will monitor daily labs and x-rays. Electrolyte replacement per protocol. Will transfuse 1 unit packed red blood cells today. 6. Pain control with current medication regimen. Toradol added. 7. Insulin management per primary care service. 8. GI prophylaxis with Protonix, DVT prophylaxis with subcu heparin and SCDs. 11. Will keep chest tubes, Cordis, arterial line, Sauceda catheter for another 24 hours. 12. Will discontinue Damascus. Connect Cordis to continuous CVP monitoring. 13. More recommendations to follow dependent on patient's progress. Time with Patient: Greater than 30
--- NOTE | 2018-09-26 14:14 | P.PN ---
Subjective Progress Note Date: 09/26/18 This is a 67-year-old white male who is status post aortic coronary placement and also aortic coronary bypass surgery. Patient had a SNELL graft to the LAD, vein graft to the diagonal and vein graft to the OM branch. Patient is currently extubated and sitting in the chair. Complaints of having chest disc omfort. Doesn't appear in any acute respiratory distress. Patient seemed to be doing poorly with incentive spirometry. Chest x-ray showed cardiomegaly with mild pulmonary vascular congestion. His hemoglobin dropped to 6 g. Patient is going to be transfused 1 unit. Renal functions are normal. No arrhythmias are detected Objective - Vital Signs Vital signs: Vital Signs Temp 98 F 09/26/18 13:51 Pulse 92 09/26/18 13:51 Resp 22 09/26/18 13:51 BP 120/84 09/26/18 13:51 Pulse Ox 94 L 09/26/18 13:50 Intake & Output 09/25/18 09/26/18 09/26/18 18:59 06:59 18:59 Intake Total 2160.339 9581.683 5179.587 Output Total 1073 572 420 Balance 1087.339 813.521 598.587 Weight 141 kg 141 kg Intake: IV 1898 952 318 ACETAMINOPHEN IV (For NPO 200 ) 1,000 mg In Empty Bag 1 bag @ 400 mls/hr IVPB Q6HR [facility] Rx#:[id number] Albumin Human 5% 250 ml @ 1000 250 mls/hr IVPB .Q1H [facility] Rx#:[id number] Albumin Human 5% 250 ml 250 In Empty Bag 1 bag @ 250 mls/hr IVPB Q1HR PRN Rx#: [id number] CO/CI 110 60 Lactated Ringers 1,000 ml 450 600 300 @ 50 mls/hr IV .Q20H [facility] Rx#:[id number] ceFAZolin 2,000 mg In 30 Sodium Chloride 0.9% 30 ml @ Per Protocol IVPB ONCE ONE Rx#:[id number] pressure bag 108 42 18 Intake, IV Titration 262.339 252.521 150.587 Amount Dexmedetomidine/0.9% NaCl 79.485 20.515 75.104 (Pmx) 400 mcg In Empty Bag 1 bag @ Titrate IV . Q0M [facility] Rx#:[id number] Insulin Regular 100 unit 40.002 99.186 39.062 In Sodium Chloride 0.9% 100 ml @ Per Protocol IV .Q0M [facility] Rx#:[id number] Norepinephrine 8 mg In 53.507 132.820 36.421 Sodium Chloride 0.9% 250 ml @ 0.04 MCG/KG/MIN 9.47 mls/hr IV .Q24H [facility] Rx#: [id number] Propofol 1,000 mg In 89.345 Empty Bag 1 bag @ Titrate IV .Q0M [facility] Rx#: [id number] Oral 60 240 Blood Product 121 310 Pooled Cryoprecipitate 121 Unit [id number] Rc Cpda-1 Unit 310 [id number] Output: Chest Tube Drainage 428 312 120 Chest Tube Bilateral 290 260 120 Mediastinal Chest Tube Left Lateral 138 52 0 Chest Drainage 30 20 Right Calf 30 20 Urine 615 240 300 Other: Voiding Method Indwelling Catheter Incontinent Incontinent # Voids 1 1 ABP, PAP, CO, CI - Last Documented Arterial Blood Pressure 96/46 Pulmonary Artery Pressure 271/271 Cardiac Output 8.6 Cardiac Index 3.9 - Exam GENERAL EXAM: Patient is alert and oriented and doesn't appear to be in any acute distress HEENT: Normocephalic. Normal reaction of pupils, equal size, normal range of extraocular motion. No erythema or exudates in throat. NECK: No masses, no nuchal rigidity. CHEST: No chest wall deformity. LUNGS: Diminished breath sounds at bases HEART: S1 and S2 normal ABDOMEN: No hepatosplenomegaly, normal bowel sounds, no guarding or rigidity. SKIN: No rashes CENTRAL NERVOUS SYSTEM: No focal deficits. EXTREMITIES: No cyanosis, clubbing or edema. - Labs CBC & Chem 7: 09/26/18 09:30 09/26/18 06:30 Labs: Abnormal Lab Results - Last 24 Hours (Table) 09/17/18 09/25/18 09/25/18 Range/Units 08:45 14:03 15:12 RBC (4.30-5.90) m/uL Hgb (13.0-17.5) gm/dL Hct (39.0-53.0) % Plt Count (150-450) k/uL Chloride (98-107) mmol/L BUN (9-20) mg/dL Glucose (74-99) mg/dL POC Glucose (mg/dL) 135 H 126 H (75-99) mg/dL AST (17-59) U/L ALT (21-72) U/L Total Protein (6.3-8.2) g/dL Albumin (3.5-5.0) g/dL Crossmatch See Detail 09/25/18 09/25/18 09/25/18 Range/Units 16:05 17:11 18:05 RBC (4.30-5.90) m/uL Hgb (13.0-17.5) gm/dL Hct (39.0-53.0) % Plt Count (150-450) k/uL Chloride (98-107) mmol/L BUN (9-20) mg/dL Glucose (74-99) mg/dL POC Glucose (mg/dL) 128 H 126 H 126 H (75-99) mg/dL AST (17-59) U/L ALT (21-72) U/L Total Protein (6.3-8.2) g/dL Albumin (3.5-5.0) g/dL Crossmatch 09/25/18 09/25/18 09/25/18 Range/Units 19:04 20:15 21:51 RBC (4.30-5.90) m/uL Hgb (13.0-17.5) gm/dL Hct (39.0-53.0) % Plt Count (150-450) k/uL Chloride (98-107) mmol/L BUN (9-20) mg/dL Glucose (74-99) mg/dL POC Glucose (mg/dL) 136 H 130 H 147 H (75-99) mg/dL AST (17-59) U/L ALT (21-72) U/L Total Protein (6.3-8.2) g/dL Albumin (3.5-5.0) g/dL Crossmatch 09/26/18 09/26/18 09/26/18 Range/Units 00:35 02:39 06:30 RBC (4.30-5.90) m/uL Hgb (13.0-17.5) gm/dL Hct (39.0-53.0) % Plt Count (150-450) k/uL Chloride 108 H (98-107) mmol/L BUN 25 H (9-20) mg/dL Glucose 184 H (74-99) mg/dL POC Glucose (mg/dL) 131 H 148 H (75-99) mg/dL AST 189 H (17-59) U/L ALT 123 H (21-72) U/L Total Protein 5.0 L (6.3-8.2) g/dL Albumin 3.2 L (3.5-5.0) g/dL Crossmatch 09/26/18 09/26/18 09/26/18 Range/Units 06:30 06:45 08:36 RBC 1.91 L (4.30-5.90) m/uL Hgb 5.9 L* D (13.0-17.5) gm/dL Hct 17.8 L* (39.0-53.0) % Plt Count 126 L (150-450) k/uL Chloride (98-107) mmol/L BUN (9-20) mg/dL Glucose (74-99) mg/dL POC Glucose (mg/dL) 209 H 149 H (75-99) mg/dL AST (17-59) U/L ALT (21-72) U/L Total Protein (6.3-8.2) g/dL Albumin (3.5-5.0) g/dL Crossmatch 09/26/18 09/26/18 09/26/18 Range/Units 09:30 10:19 11:50 RBC 1.97 L (4.30-5.90) m/uL Hgb 6.0 L* (13.0-17.5) gm/dL Hct 18.2 L* (39.0-53.0) % Plt Count 131 L (150-450) k/uL Chloride (98-107) mmol/L BUN (9-20) mg/dL Glucose (74-99) mg/dL POC Glucose (mg/dL) 136 H 116 H (75-99) mg/dL AST (17-59) U/L ALT (21-72) U/L Total Protein (6.3-8.2) g/dL Albumin (3.5-5.0) g/dL Crossmatch Assessment and Plan (1) Status post aortic valve replacement Current Visit: Yes Status: Acute Code(s): Z95.2 - PRESENCE OF PROSTHETIC HEART VALVE SNOMED Code(s): 3094822043082 (2) Status post aorto-coronary artery bypass graft Current Visit: Yes Status: Acute Code(s): Z95.1 - PRESENCE OF AORTOCORONARY BYPASS GRAFT SNOMED Code(s): 230367738 (3) COPD (chronic obstructive pulmonary disease) Current Visit: Yes Status: Chronic Code(s): J44.9 - CHRONIC OBSTRUCTIVE PULMONARY DISEASE, UNSPECIFIED SNOMED Code(s): 34066504 (4) Hyperlipidemia Current Visit: No Status: Chronic Code(s): E78.5 - HYPERLIPIDEMIA, UNSPECIFIED SNOMED Code(s): 42798044 (5) Hypertension Current Visit: No Status: Chronic Code(s): I10 - ESSENTIAL (PRIMARY) HYPERTENSION SNOMED Code(s): 78565831 (6) Morbid obesity Current Visit: No Status: Chronic Code(s): E66.01 - MORBID (SEVERE) OBESITY DUE TO EXCESS CALORIES SNOMED Code(s): 620686498 Plan: Overall patient seemed to be clinically stable. Complaints of chest pain and doing poorly with incentive spirometry. No arrhythmias detected. Patient underwent postsurgical anemia. Received one unit of blood today.
[2018-09-26 15:00] LABS: Glucose,Whole Blood 138 mg/dL (75-99)
[2018-09-26] MEDS ORDERED: FUROSEMIDE 10 MG/ML 2 ML VIAL IV ONE (15:50)
[2018-09-26 16:46] LABS: Glucose,Whole Blood 156 mg/dL (75-99)
[2018-09-26] MEDS: CLEVIDIPINE BUTYRATE 25 MG in EMPTY BAG 1 BAG IV SCH (18:25)
[2018-09-26 18:34] LABS: Basophils % (A) 0 %; Eosinophils # (A) 0.1 k/uL (0-0.7); Eosinophils % (A) 1 %; Lymphocytes # (A) 1.5 k/uL (1.0-4.8); Lymphocytes % (A) 16 %; MCH 31.7 pg (25.0-35.0); MCHC 34.9 g/dL (31.0-37.0); MCV 90.9 fL (80.0-100.0); Mean Platelet Volume 7.4; Monocytes # (A) 0.6 k/uL (0-1.0); Monocytes % (A) 6 %; Neutrophils # (A) 7.3 k/uL (1.3-7.7); Neutrophils % (A) 76 %; Platelet Count 148 k/uL (150-450); RBC 2.15 m/uL (4.30-5.90); RDW 14.9 % (11.5-15.5); WBC 9.7 k/uL (3.8-10.6)
[2018-09-26 18:35] LABS: HCT 19.6 % (39.0-53.0); HGB 6.8 gm/dL (13.0-17.5)
[2018-09-26 18:39] LABS: Glucose,Whole Blood 145 mg/dL (75-99)
[2018-09-26 20:31] LABS: Glucose,Whole Blood 117 mg/dL (75-99)
[2018-09-26] MEDS: SENNOSIDES-DOCUSATE SODIUM 1 EACH TAB PO SCH (20:35)
--- NOTE | 2018-09-26 22:00 | PN ---
PROGRESS NOTE DATE OF SERVICE: 09/26/2018 PRESENTING COMPLAINT: CABG. INTERVAL HISTORY: Patient is status post coronary artery bypass and aortic valve replacement with a prosthetic valve. Sitting up in a chair, a bit tired. Did eat small amounts. Family at the bedside. Slightly short of breath. Did stand up a bit. Patient had dropped his hemoglobin; blood was being transfused. REVIEW OF SYSTEMS: Done for constitutional, cardiovascular, GI, pulmonary; relevant findings as above. CURRENT MEDICATIONS: Reviewed. They include amiodarone, Precedex, insulin drip. PHYSICAL EXAMINATION: Temperature 97.5, pulse 89, respiration 22, blood pressure 95/67, pulse ox 94% on 3 L. GENERAL APPEARANCE: Sitting up in a chair. Awake. A bit tired. More awake. EYES: Pupils equal. Conjunctivae pale. NECK: JVD unable to assess. Mass not palpable. RESPIRATORY: Effort increased. LUNGS: Distant breath sounds. CARDIOVASCULAR: Heart sounds muffled. No edema. ABDOMEN: Distended, soft. Liver and spleen not palpable. PSYCHIATRY: Alert and oriented x3. Mood and affect normal. INVESTIGATIONS: White count 9.7, hemoglobin 6.8, platelets 148. ASSESSMENT: 1. Coronary artery bypass and aortic valve replacement with prosthetic valve. 2. Essential hypertension. 3. Hyperlipidemia. 4. Acute postoperative blood loss anemia, expected from surgery, with further drop below 7. 5. Dilutional thrombocytopenia. 6. Morbid obesity; body mass index of 41.1. 7. Hyperkalemia, corrected. 8. Acute respiratory failure with ventilator assistance postoperatively. Patient now on nasal cannula. PLAN: Continue current medication and treatment plan. A unit of blood has been ordered. Care was discussed with the patient. MMODL / IJN: [id number] /
[2018-09-26 22:08] LABS: Glucose,Whole Blood 109 mg/dL (75-99)
[2018-09-26 23:08] LABS: Glucose,Whole Blood 125 mg/dL (75-99)
[2018-09-27 00:06] LABS: Glucose,Whole Blood 135 mg/dL (75-99)
[2018-09-27] MEDS: KETOROLAC 30 MG/ML 1 ML VIAL IVP SCH ×4 (00:21→18:17)
[2018-09-27] MEDS: HEPARIN SODIUM,PORCINE 5,000 UNIT/ML 1 ML VIAL SQ SCH ×3 (00:22→16:02)
[2018-09-27] MEDS: INSULIN REGULAR 100 UNIT in SODIUM CHLORIDE 0.9% 100 ML IV SCH ×2 (00:27→20:18)
[2018-09-27 01:08] LABS: Glucose,Whole Blood 130 mg/dL (75-99)
[2018-09-27] MEDS: HYDROcodone/APAP 5-325MG 1 EACH TAB PO PRN ×5 (02:18→20:30)
[2018-09-27 03:29] LABS: Glucose,Whole Blood 124 mg/dL (75-99)
[2018-09-27 04:13] LABS: Glucose,Whole Blood 116 mg/dL (75-99)
[2018-09-27 05:51] LABS: Basophils % (A) 0 %; Eosinophils # (A) 0.2 k/uL (0-0.7); Eosinophils % (A) 2 %; Lymphocytes # (A) 1.2 k/uL (1.0-4.8); Lymphocytes % (A) 14 %; MCH 29.5 pg (25.0-35.0); MCHC 31.7 g/dL (31.0-37.0); MCV 92.9 fL (80.0-100.0); Mean Platelet Volume 7.8; Monocytes # (A) 0.4 k/uL (0-1.0); Monocytes % (A) 5 %; Neutrophils # (A) 6.9 k/uL (1.3-7.7); Neutrophils % (A) 77 %; Platelet Count 136 k/uL (150-450); RBC 2.15 m/uL (4.30-5.90); RDW 15.2 % (11.5-15.5); WBC 8.9 k/uL (3.8-10.6)
[2018-09-27] MEDS: LACTATED RINGERS 1,000 ML IV SCH ×2 (05:55→08:58)
[2018-09-27 06:01] LABS: Albumin 3.3 g/dL (3.5-5.0); Calcium 8.6 mg/dL (8.4-10.2); Magnesium 2.3 mg/dL (1.6-2.3); Potassium 4.4 mmol/L (3.5-5.1); Total Bilirubin 0.8 mg/dL (0.2-1.3); Total Protein 5.4 g/dL (6.3-8.2)
[2018-09-27 06:04] LABS: Glucose,Whole Blood 116 mg/dL (75-99)
[2018-09-27 06:16] LABS: HGB 6.3 gm/dL (13.0-17.5)
[2018-09-27 07:12] LABS: Glucose,Whole Blood 128 mg/dL (75-99)
[2018-09-27] MEDS: IPRATROPIUM-ALBUTEROL 3 ML NEB INHALATION SCH ×4 (08:11→20:07)
[2018-09-27] MEDS: ASPIRIN 81 MG PO SCH (08:44)
[2018-09-27] MEDS: CLOPIDOGREL 75 MG TAB PO SCH (08:44)
[2018-09-27] MEDS: MUPIROCIN 2% OINT 22 GM TUBE NASAL SCH ×2 (08:44→20:29)
[2018-09-27] MEDS: PANTOPRAZOLE 40 MG TABLET PO SCH (08:44)
[2018-09-27] MEDS: ATORVASTATIN 40 MG TAB PO SCH (08:44)
[2018-09-27] MEDS: METOPROLOL TARTRATE 12.5 MG TAB PO SCH (08:44)
--- NOTE | 2018-09-27 08:46 | XR ---
EXAMINATION TYPE: XR chest 1V portable DATE OF EXAM: 09/27/2018 COMPARISON: 09/26/2018 HISTORY: Shortness of breath status post cardiac surgery TECHNIQUE: Single frontal view of the chest is obtained. FINDINGS: There is interval development of a trace right pleural effusion and right basilar airspace disease, likely atelectasis. Left-sided thoracostomy tube and right central venous catheter from the internal jugular approach are unchanged. There is been removal of the Tifton-Karol catheter. Post CABG changes the chest are noted. No sizable pneumothorax. Left basilar probable atelectasis is also seen. Cardiomediastinal silhouette is mildly enlarged. IMPRESSION: 1. Interval removal of the Tifton-Karol catheter. 2. Interval development of a trace right pleural effusion and bibasilar airspace disease, likely atel ectasis.
[2018-09-27 09:00] LABS: Glucose,Whole Blood 154 mg/dL (75-99)
[2018-09-27] MEDS ORDERED: FUROSEMIDE 10 MG/ML 4 ML VIAL IV STA (10:47)
[2018-09-27] MEDS ORDERED: METOPROLOL TARTRATE 12.5 MG TAB PO STA (10:50)
[2018-09-27 10:55] LABS: Glucose,Whole Blood 156 mg/dL (75-99)
[2018-09-27 11:00] LABS: Basophils % (A) 0 %; Eosinophils # (A) 0.4 k/uL (0-0.7); Eosinophils % (A) 4 %; HCT 20.6 % (39.0-53.0); HGB 7.1 gm/dL (13.0-17.5); Lymphocytes # (A) 1.9 k/uL (1.0-4.8); Lymphocytes % (A) 18 %; MCH 31.2 pg (25.0-35.0); MCHC 34.5 g/dL (31.0-37.0); MCV 90.5 fL (80.0-100.0); Mean Platelet Volume 8.1; Monocytes # (A) 0.5 k/uL (0-1.0); Monocytes % (A) 5 %; Neutrophils # (A) 7.7 k/uL (1.3-7.7); Neutrophils % (A) 72 %; Platelet Count 168 k/uL (150-450); RBC 2.27 m/uL (4.30-5.90); RDW 15.6 % (11.5-15.5); WBC 10.7 k/uL (3.8-10.6)
[2018-09-27] MEDS: CHOLECALCIFEROL 1,000 UNIT TAB PO SCH (11:16)
--- NOTE | 2018-09-27 11:30 | P.PN ---
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 POD #3 triple coronary artery bypass grafting using the left internal mammary artery to the left anterior descending artery, a reverse greater saphenous vein graft from the aorta to the first diagonal artery, a reverse greater saphenous vein graft from the aorta to the first obtuse marginal artery. Aortic valve replacement using a 27 mm pericardial bioprosthesis Magna Ease. Exclusion of the left atrial appendage using a 40 mm AtriClip. Endoscopic vein harvesting of the right greater saphenous vein from the groin to above the ankle level. Intraoperative transesophageal echocardiogram and epi-aortic scanning. Intraoperative graft flow measurements using the Aquicore system. Postoperative acute blood loss anemia, an expected outcome given cardiopulmonary bypass and hemodilution. The patient is currently sitting up to the bedside chair. He is in no acute distress. He denies any complaints of pain at this time although he reports that he is having some shortness of breath and wheezing. He is achieving 750- 1000 mL on his incentive spirometry with encouragement. Oxygen saturation are 93% on 3 L nasal cannula. He remains hemodynamically stable. He is on no inotr opic or pressor support. Initial hemoglobin was 6.3 this morning and a repeat hemoglobin was 7.1. Objective - Vital Signs Vital signs: Vital Signs Temp 98.5 F 09/27/18 08:00 Pulse 90 09/27/18 09:00 Resp 20 09/27/18 09:00 BP 123/70 09/27/18 09:00 Pulse Ox 93 L 09/27/18 09:00 Intake & Output 09/26/18 09/27/18 09/27/18 18:59 06:59 18:59 Intake Total 1832.665 968.199 215.209 Output Total 1010 365 290 Balance 822.665 603.199 -74.791 Weight 141 kg 139.1 kg Intake: IV 549 393 69 Lactated Ringers 1,000 ml 510 330 60 @ 20 mls/hr IV .Q24H [facility] Rx#:[id number] pressure bag 39 63 9 Intake, IV Titration 183.665 35.199 26.209 Amount Dexmedetomidine/0.9% NaCl 75.104 (Pmx) 400 mcg In Empty Bag 1 bag @ Titrate IV . Q0M [facility] Rx#:[id number] Insulin Regular 100 unit 72.140 35.199 26.209 In Sodium Chloride 0.9% 100 ml @ Per Protocol IV .Q0M [facility] Rx#:[id number] Norepinephrine 8 mg In 36.421 Sodium Chloride 0.9% 250 ml @ 0.04 MCG/KG/MIN 9.47 mls/hr IV .Q24H [facility] Rx#: [id number] Oral 480 540 120 Blood Product 620 Rc Cpda-1 Unit 310 [id number] Output: Chest Tube Drainage 210 210 0 Chest Tube Bilateral 170 160 0 Mediastinal Chest Tube Left Lateral 40 50 0 Chest Drainage 50 30 40 Right Calf 50 30 40 Urine 750 125 250 Other: Voiding Method Urinal Urinal Urinal # Voids 1 0 1 ABP, PAP, CO, CI - Last Documented Arterial Blood Pressure 96/46 Pulmonary Artery Pressure 271/271 Cardiac Output 8.6 Cardiac Index 3.9 - Constitutional General appearance: Present: cooperative, morbidly obese, no acute distress - Respiratory Details: Expiratory wheezes throughout, diminished to his bilateral bases. Respirations are symmetrical and nonlabored. Oxygen saturation are 93% on 3 L nasal cannula. He is achieving 750-1000 mL on his incentive spirometry. Mediastinal and left pleural chest tubes remain in place to low continuous wall suction -20 cm H2O. No air leak is present. Draining thin serosanguineous drainage. Mediastinal chest tubes drained 330 mL output in the last 24 hours, 80 mL output in the last 8 hours. Left pleural chest tube drained 90 mL in the last 24 hours, 10 mL output in the last 8 hours. - Cardiovascular Details: Regular rhythm and rate. S1 and S2 present, negative for S3, gallop or murmur. Sternum is stable. Bedside telemetry showing normal sinus rhythm heart rate 89. Heart hugger is in place and he is demonstrating appropriate use. Atrial and ventricular epicardial pacemaker wires are present and grounded. Right IJ Cordis in place with continuous CVP monitoring, current CVP pressure 17 millimeters of mercury. +1 generalized edema. Knee-high SUZIE hose and sequential compression devices in place to his bilateral lower extremities. - Gastrointestinal Gastrointestinal Comment(s): Abdomen is soft, nontender and nondistended. Active bowel sounds all 4 abdominal quadrants. Tolerating oral intake. Passing flatus. Obese. - Genitourinary Genitourinary Comment(s): Voiding clear yellow urine. 450 mL output in the last 8 hours. - Integumentary Integumentary Comment(s): Skin is warm and dry. No clubbing or cyanosis is present. Midline sternal i ncision is clean, dry and approximated. No drainage or redness is present. Right lower extremity EVH sites are clean, dry and approximated. No redness or drainage is present. Some scattered ecchymosis to his right thigh. Soft and nontender to palpate. Right lower extremity LACHO drain present and draining thin serosanguineous drainage. 40 mL output in the last 24 hours. - Neurologic Neurologic: Present: CNII-XII intact - Musculoskeletal Musculoskeletal: Present: gait normal, generalized weakness, strength equal b ilaterally - Psychiatric Psychiatric: Present: A&O x's 3, appropriate affect, intact judgment & insight - Allied health notes Allied health notes reviewed: nursing - Labs CBC & Chem 7: 09/27/18 10:21 09/27/18 05:32 Labs: Abnormal Lab Results - Last 24 Hours (Table) 09/17/18 09/26/18 09/26/18 Range/Units 08:45 09:30 10:19 RBC 1.97 L (4.30-5.90) m/uL Hgb 6.0 L* (13.0-17.5) gm/dL Hct 18.2 L* (39.0-53.0) % Plt Count 131 L (150-450) k/uL BUN (9-20) mg/dL Glucose (74-99) mg/dL POC Glucose (mg/dL) 136 H (75-99) mg/dL AST (17-59) U/L ALT (21-72) U/L Total Protein (6.3-8.2) g/dL Albumin (3.5-5.0) g/dL Crossmatch See Detail 09/26/18 09/26/18 09/26/18 Range/Units 11:50 14:49 16:34 RBC (4.30-5.90) m/uL Hgb (13.0-17.5) gm/dL Hct (39.0-53.0) % Plt Count (150-450) k/uL BUN (9-20) mg/dL Glucose (74-99) mg/dL POC Glucose (mg/dL) 116 H 138 H 156 H (75-99) mg/dL AST (17-59) U/L ALT (21-72) U/L Total Protein (6.3-8.2) g/dL Albumin (3.5-5.0) g/dL Crossmatch 09/26/18 09/26/18 09/26/18 Range/Units 17:49 18:27 20:18 RBC 2.15 L (4.30-5.90) m/uL Hgb 6.8 L* (13.0-17.5) gm/dL Hct 19.6 L* (39.0-53.0) % Plt Count 148 L (150-450) k/uL BUN (9-20) mg/dL Glucose (74-99) mg/dL POC Glucose (mg/dL) 145 H 117 H (75-99) mg/dL AST (17-59) U/L ALT (21-72) U/L Total Protein (6.3-8.2) g/dL Albumin (3.5-5.0) g/dL Crossmatch 09/26/18 09/26/18 09/26/18 Range/Units 21:57 22:56 23:54 RBC (4.30-5.90) m/uL Hgb (13.0-17.5) gm/dL Hct (39.0-53.0) % Plt Count (150-450) k/uL BUN (9-20) mg/dL Glucose (74-99) mg/dL POC Glucose (mg/dL) 109 H 125 H 135 H (75-99) mg/dL AST (17-59) U/L ALT (21-72) U/L Total Protein (6.3-8.2) g/dL Albumin (3.5-5.0) g/dL Crossmatch 09/27/18 09/27/18 09/27/18 Range/Units 00:57 03:18 04:01 RBC (4.30-5.90) m/uL Hgb (13.0-17.5) gm/dL Hct (39.0-53.0) % Plt Count (150-450) k/uL BUN (9-20) mg/dL Glucose (74-99) mg/dL POC Glucose (mg/dL) 130 H 124 H 116 H (75-99) mg/dL AST (17-59) U/L ALT (21-72) U/L Total Protein (6.3-8.2) g/dL Albumin (3.5-5.0) g/dL Crossmatch 09/27/18 09/27/18 09/27/18 Range/Units 05:32 05:32 05:52 RBC 2.15 L (4.30-5.90) m/uL Hgb 6.3 L* (13.0-17.5) gm/dL Hct 20.0 L (39.0-53.0) % Plt Count 136 L (150-450) k/uL BUN 34 H (9-20) mg/dL Glucose 107 H (74-99) mg/dL POC Glucose (mg/dL) 116 H (75-99) mg/dL AST 142 H (17-59) U/L ALT 129 H (21-72) U/L Total Protein 5.4 L (6.3-8.2) g/dL Albumin 3.3 L (3.5-5.0) g/dL Crossmatch 09/27/18 09/27/18 Range/Units 07:01 08:48 RBC (4.30-5.90) m/uL Hgb (13.0-17.5) gm/dL Hct (39.0-53.0) % Plt Count (150-450) k/uL BUN (9-20) mg/dL Glucose (74-99) mg/dL POC Glucose (mg/dL) 128 H 154 H (75-99) mg/dL AST (17-59) U/L ALT (21-72) U/L Total Protein (6.3-8.2) g/dL Albumin (3.5-5.0) g/dL Crossmatch - Imaging and Cardiology Chest x-ray: report reviewed, image reviewed Assessment and Plan Assessment: 1. Bicuspid aortic valve with moderate to severe aortic stenosis, status post aortic valve replacement with a 27 mm Magna Ease pericardial bioprosthesis 2. Double vessel coronary artery disease with left main disease, totally occluded left anterior descending artery, status post triple coronary artery bypass grafting with SNELL to the LAD, SVG to diag 1, SVG to OM1 3. Preserved left ventricular systolic function 4. Hypertension 5. Hyperlipidemia 6. Morbid obesity 7. Previous tobacco dependence 8. Mild COPD with preoperative FEV1 64% of predicted 9. Postoperative acute blood loss anemia Plan: 1. Continue low-dose aspirin, statin, Plavix, beta misbah. Will increase his metoprolol tartrate 25 mg by mouth twice a day. 2. Wean O2 as tolerated. Encourage incentive spirometry use 10 times every hour while awake. 3. Encourage continued smoking cessation. Bronchodilators and steroid management per pulmonology recommendations. 4. Increase activity, ambulate as tolerated. PT/OT/cardiac rehab following. 5. Will monitor daily labs and x-rays. Electrolyte replacement per protocol. No transfusion today. 6. Pain control with current medication regimen. 7. Insulin management per primary care service. 8. GI prophylaxis with Protonix, DVT prophylaxis with subcu heparin and SCDs. 11. Discontinue chest tubes, right IJ Cordis and right lower extremity LACHO drain today. 12. Lasix 40 mg IV 1 now. 13. We will start the patient on ferrous sulfate 325 mg by mouth daily and vitamin C 500 mg by mouth daily for his hemoglobin of 7.1. 14. More recommendations to follow based on patient's clinical course. Time with Patient: Greater than 30
--- NOTE | 2018-09-27 11:39 | P.PN ---
Subjective Progress Note Date: 09/27/18 Principal diagnosis: Status post aortic valve replacement and CABG, postoperative day #3 This is a 67-year-old white male with history of severe aortic stenosis, and significant coronary artery disease, recent cardiac catheterization showed total occlusion of LAD, 50-60% left main disease, 70% of the obtuse marginal branch. Patient underwent elective coronary artery bypass surgery with SNELL to LAD, saphenous vein graft to diagonal and saphenous vein graft to obtuse marginal branch. Aortic valve was replaced using a 27 mm pericardial bioprosthesis magna ease. Postoperatively, patient was on mechanical ventilation, and I was asked to see him on consultation. I reviewed his ventilator settings last night, and these were adjusted accordingly. Patient was significantly agitated last night, and could not be weaned because he required significant propofol infusion. This morning the patient is being aroused, we have switched his propofol to Precedex, and we plan to give the patient a weaning trial today. Patient was on IMV rate of 16, PEEP at 10 which I cut down to 5, and FiO2 was 40%. ABG this morning showed a pO2 of 101 pCO2 of 40 pH of 7.42. Chest x-ray showed mostly left lower lobe atelectasis. Patient remains on mechanical ventilation this morning, and he is sedated, in the process of being switched from propofol to Precedex to facilitate weaning process in the next couple of hours. Patient was reevaluated today on 09/26/2018, he was extubated yesterday uneventfully. No major issues overnight, he had slight agitation, otherwise the patient has been doing well. Today no cough no wheezing no shortness of breath, patient is sitting in a bedside chair, and relatively asymptomatic. Still doing poorly with incentive spirometry, but he is working on it. Chest x-ray this morning showed cardiomegaly, and mild pulmonary vascular congestion. Left lung base seems to be aerating better today. His hemoglobin this morning is 6, and the patient would like to be transfused by cardiac surgery. Basic metabolic profile is normal, renal profile is normal. Patient is hemodynamically stable, not requiring any pressors or any inotropes Reevaluated today on 09/27/2018, patient is sitting at a bedside chair, in no distress, however he was noted to have some wheezing on examination. Solu- Medrol was added. A remains on updrafts in the form of DuoNeb 4 times a day and when necessary. He is compliant with his incentive spirometry, achieving about 750 ML. O2 saturation is 93% on 3 L nasal cannula, patient is hemodynamically stable, not requiring any pressors or inotropes. Hemoglobin today was noted to be 7.1. Electrolytes were noted to be normal. Chest x-ray showed small or trace pleural effusion, and basilar atelectasis, expected Objective - Vital Signs Vital signs: Vital Signs Temp 98.5 F 09/27/18 08:00 Pulse 85 09/27/18 11:31 Resp 25 H 09/27/18 11:00 BP 121/70 09/27/18 11:00 Pulse Ox 93 L 09/27/18 11:00 Intake & Output 09/26/18 09/27/18 09/27/18 18:59 06:59 18:59 Intake Total 1832.665 968.199 298.209 Output Total 1010 365 290 Balance 822.665 603.199 8.209 Weight 141 kg 139.1 kg Intake: IV 549 393 92 Lactated Ringers 1,000 ml 510 330 80 @ 20 mls/hr IV .Q24H [facility] Rx#:[id number] pressure bag 39 63 12 Intake, IV Titration 183.665 35.199 26.209 Amount Dexmedetomidine/0.9% NaCl 75.104 (Pmx) 400 mcg In Empty Bag 1 bag @ Titrate IV . Q0M [facility] Rx#:[id number] Insulin Regular 100 unit 72.140 35.199 26.209 In Sodium Chloride 0.9% 100 ml @ Per Protocol IV .Q0M [facility] Rx#:[id number] Norepinephrine 8 mg In 36.421 Sodium Chloride 0.9% 250 ml @ 0.04 MCG/KG/MIN 9.47 mls/hr IV .Q24H [facility] Rx#: [id number] Oral 480 540 180 Blood Product 620 Rc Cpda-1 Unit 310 [id number] Output: Chest Tube Drainage 210 210 0 Chest Tube Bilateral 170 160 0 Mediastinal Chest Tube Left Lateral 40 50 0 Chest Drainage 50 30 40 Right Calf 50 30 40 Urine 750 125 250 Other: Voiding Method Urinal Urinal Urinal # Voids 1 0 1 ABP, PAP, CO, CI - Last Documented Arterial Blood Pressure 96/46 Pulmonary Artery Pressure 271/271 Cardiac Output 8.6 Cardiac Index 3.9 - Exam Physical Exam: Revealed a 67-year-old white male, obese in no distress. On 3 L nasal cannula. Head: Atraumatic, normocephalic. HEENT:[Neck is supple.] [No neck masses.] [No thyromegaly.] [No JVD.] Chest: [Rhonchi and wheezes noted bilaterally more so on forced expiratory maneuver..] Cardiac Exam: [Normal S1 and S2, no S3 gallop, no murmur.] Abdomen: [Soft, nontender, no megaly, no rebound, no guarding, normal bowel sounds.] Extremities: [No clubbing, no edema, no cyanosis.] Neurological Exam: [No focal neurologic deficit.] Psychiatric: Normal mood affect and mental status examination. - Labs CBC & Chem 7: 09/27/18 10:21 09/27/18 05:32 Labs: Abnormal Lab Results - Last 24 Hours (Table) 09/17/18 09/26/18 09/26/18 Range/Units 08:45 11:50 14:49 WBC (3.8-10.6) k/uL RBC (4.30-5.90) m/uL Hgb (13.0-17.5) gm/dL Hct (39.0-53.0) % RDW (11.5-15.5) % Plt Count (150-450) k/uL BUN (9-20) mg/dL Glucose (74-99) mg/dL POC Glucose (mg/dL) 116 H 138 H (75-99) mg/dL AST (17-59) U/L ALT (21-72) U/L Total Protein (6.3-8.2) g/dL Albumin (3.5-5.0) g/dL Crossmatch See Detail 09/26/18 09/26/18 09/26/18 Range/Units 16:34 17:49 18:27 WBC (3.8-10.6) k/uL RBC 2.15 L (4.30-5.90) m/uL Hgb 6.8 L* (13.0-17.5) gm/dL Hct 19.6 L* (39.0-53.0) % RDW (11.5-15.5) % Plt Count 148 L (150-450) k/uL BUN (9-20) mg/dL Glucose (74-99) mg/dL POC Glucose (mg/dL) 156 H 145 H (75-99) mg/dL AST (17-59) U/L ALT (21-72) U/L Total Protein (6.3-8.2) g/dL Albumin (3.5-5.0) g/dL Crossmatch 09/26/18 09/26/18 09/26/18 Range/Units 20:18 21:57 22:56 WBC (3.8-10.6) k/uL RBC (4.30-5.90) m/uL Hgb (13.0-17.5) gm/dL Hct (39.0-53.0) % RDW (11.5-15.5) % Plt Count (150-450) k/uL BUN (9-20) mg/dL Glucose (74-99) mg/dL POC Glucose (mg/dL) 117 H 109 H 125 H (75-99) mg/dL AST (17-59) U/L ALT (21-72) U/L Total Protein (6.3-8.2) g/dL Albumin (3.5-5.0) g/dL Crossmatch 09/26/18 09/27/18 09/27/18 Range/Units 23:54 00:57 03:18 WBC (3.8-10.6) k/uL RBC (4.30-5.90) m/uL Hgb (13.0-17.5) gm/dL Hct (39.0-53.0) % RDW (11.5-15.5) % Plt Count (150-450) k/uL BUN (9-20) mg/dL Glucose (74-99) mg/dL POC Glucose (mg/dL) 135 H 130 H 124 H (75-99) mg/dL AST (17-59) U/L ALT (21-72) U/L Total Protein (6.3-8.2) g/dL Albumin (3.5-5.0) g/dL Crossmatch 09/27/18 09/27/18 09/27/18 Range/Units 04:01 05:32 05:32 WBC (3.8-10.6) k/uL RBC 2.15 L (4.30-5.90) m/uL Hgb 6.3 L* (13.0-17.5) gm/dL Hct 20.0 L (39.0-53.0) % RDW (11.5-15.5) % Plt Count 136 L (150-450) k/uL BUN 34 H (9-20) mg/dL Glucose 107 H (74-99) mg/dL POC Glucose (mg/dL) 116 H (75-99) mg/dL AST 142 H (17-59) U/L ALT 129 H (21-72) U/L Total Protein 5.4 L (6.3-8.2) g/dL Albumin 3.3 L (3.5-5.0) g/dL Crossmatch 09/27/18 09/27/18 09/27/18 Range/Units 05:52 07:01 08:48 WBC (3.8-10.6) k/uL RBC (4.30-5.90) m/uL Hgb (13.0-17.5) gm/dL Hct (39.0-53.0) % RDW (11.5-15.5) % Plt Count (150-450) k/uL BUN (9-20) mg/dL Glucose (74-99) mg/dL POC Glucose (mg/dL) 116 H 128 H 154 H (75-99) mg/dL AST (17-59) U/L ALT (21-72) U/L Total Protein (6.3-8.2) g/dL Albumin (3.5-5.0) g/dL Crossmatch 09/27/18 09/27/18 Range/Units 10:21 10:43 WBC 10.7 H (3.8-10.6) k/uL RBC 2.27 L (4.30-5.90) m/uL Hgb 7.1 L (13.0-17.5) gm/dL Hct 20.6 L (39.0-53.0) % RDW 15.6 H (11.5-15.5) % Plt Count (150-450) k/uL BUN (9-20) mg/dL Glucose (74-99) mg/dL POC Glucose (mg/dL) 156 H (75-99) mg/dL AST (17-59) U/L ALT (21-72) U/L Total Protein (6.3-8.2) g/dL Albumin (3.5-5.0) g/dL Crossmatch Assessment and Plan Assessment: Impression: 1 bicuspid aortic valve with moderate to severe aortic stenosis, status post aortic valve replacement postoperative day #3 22 vessel coronary artery disease with left main disease, status post CABG postoperative day #3 3 postoperative left lower lobe atelectasis, expected finding after such surgery. Resolved based on the chest x-ray today 09/26/2018. 4 suspect some component of COPD exacerbation, hence I have recommended adding Solu-Medrol, Pulmicort updrafts, and we'll continue DuoNeb. 4 multiple comorbidities including mild to moderate COPD, FEV1 is in the range of 64% preoperatively. Morbid obesity, hyperlipidemia, hypertension, Recommendation: Continue updrafts, added Solu-Medrol, continue incentive spirometry, ambulate as tolerated, continue aspirin beta blockers Plavix statins, continue GI and DVT prophylaxis, reviewed chest x-ray, and we will continue to follow. So far the patient is doing fairly well, encouraged to do better with incentive spirometry. Time with Patient: Less than 30
[2018-09-27] MEDS: FERROUS SULFATE 325 MG TAB PO SCH (12:16)
[2018-09-27] MEDS: ASCORBIC ACID 500 MG TAB PO SCH (12:16)
[2018-09-27] MEDS: methylPREDNISolone SOD SUCCI 125 MG/2 ML VIAL IV SCH ×2 (12:16→16:02)
[2018-09-27 12:25] LABS: Glucose,Whole Blood 126 mg/dL (75-99)
--- NOTE | 2018-09-27 14:54 | P.PN ---
Subjective Progress Note Date: 09/27/18 This is a 67-year-old white male who is status post aortic coronary placement and also aortic coronary bypass surgery. Patient had a SNELL graft to the LAD, vein graft to the diagonal and vein graft to the OM branch. Patient is currently extubated and sitting in the chair. Complaints of having chest disc omfort. Doesn't appear in any acute respiratory distress. Patient seemed to be doing poorly with incentive spirometry. Chest x-ray showed cardiomegaly with mild pulmonary vascular congestion. His hemoglobin dropped to 6 g. Patient is going to be transfused 1 unit. Renal functions are normal. No arrhythmias are detected. 09/27/2018: . Patient making gradual progress. Still complains of being weak and tired. Patient using incentive spirometry and seem to be changing about 750 mL. Hemodynamically otherwise stable. His lab values showed stable renal function. Patient is maintaining sinus rhythm. Patient is not on any pressors. Chest x-ray showed small pleural effusion and basilar akinesis. Overall, patient is clinically stable. No arrhythmias are noted. Patient was started on steroids for wheezing. We'll increase activity as tolerated. Continue incentive spirometry Objective - Vital Signs Vital signs: Vital Signs Temp 98.8 F 09/27/18 12:00 Pulse 90 09/27/18 12:00 Resp 24 09/27/18 12:00 BP 133/74 09/27/18 12:00 Pulse Ox 93 L 09/27/18 11:00 Intake & Output 09/26/18 09/27/18 09/27/18 18:59 06:59 18:59 Intake Total 1832.665 968.199 487.237 Output Total 1010 365 290 Balance 822.665 603.199 197.237 Weight 141 kg 139.1 kg Intake: IV 549 393 138 Lactated Ringers 1,000 ml 510 330 120 @ 20 mls/hr IV .Q24H [facility] Rx#:[id number] pressure bag 39 63 18 Intake, IV Titration 183.665 35.199 49.237 Amount Dexmedetomidine/0.9% NaCl 75.104 (Pmx) 400 mcg In Empty Bag 1 bag @ Titrate IV . Q0M [facility] Rx#:[id number] Insulin Regular 100 unit 72.140 35.199 49.237 In Sodium Chloride 0.9% 100 ml @ Per Protocol IV .Q0M [facility] Rx#:[id number] Norepinephrine 8 mg In 36.421 Sodium Chloride 0.9% 250 ml @ 0.04 MCG/KG/MIN 9.47 mls/hr IV .Q24H [facility] Rx#: [id number] Oral 480 540 300 Blood Product 620 Rc Cpda-1 Unit 310 [id number] Output: Chest Tube Drainage 210 210 0 Chest Tube Bilateral 170 160 0 Mediastinal Chest Tube Left Lateral 40 50 0 Chest Drainage 50 30 40 Right Calf 50 30 40 Urine 750 125 250 Other: Voiding Method Urinal Urinal Urinal # Voids 1 0 1 # Bowel Movements 1 ABP, PAP, CO, CI - Last Documented Arterial Blood Pressure 96/46 Pulmonary Artery Pressure 271/271 Cardiac Output 8.6 Cardiac Index 3.9 - Exam GENERAL EXAM: Patient is alert and oriented and doesn't appear to be in any acute distress HEENT: Normocephalic. Normal reaction of pupils, equal size, normal range of extraocular motion. No erythema or exudates in throat. NECK: No masses, no nuchal rigidity. CHEST: No chest wall deformity. LUNGS: Diminished breath sounds at bases HEART: S1 and S2 normal ABDOMEN: No hepatosplenomegaly, normal bowel sounds, no guarding or rigidity. SKIN: No rashes CENTRAL NERVOUS SYSTEM: No focal deficits. EXTREMITIES: No cyanosis, clubbing or edema. - Labs CBC & Chem 7: 09/27/18 10:21 09/27/18 05:32 Labs: Abnormal Lab Results - Last 24 Hours (Table) 09/26/18 09/26/18 09/26/18 Range/Units 14:49 16:34 17:49 WBC (3.8-10.6) k/uL RBC 2.15 L (4.30-5.90) m/uL Hgb 6.8 L* (13.0-17.5) gm/dL Hct 19.6 L* (39.0-53.0) % RDW (11.5-15.5) % Plt Count 148 L (150-450) k/uL BUN (9-20) mg/dL Glucose (74-99) mg/dL POC Glucose (mg/dL) 138 H 156 H (75-99) mg/dL AST (17-59) U/L ALT (21-72) U/L Total Protein (6.3-8.2) g/dL Albumin (3.5-5.0) g/dL 09/26/18 09/26/18 09/26/18 Range/Units 18:27 20:18 21:57 WBC (3.8-10.6) k/uL RBC (4.30-5.90) m/uL Hgb (13.0-17.5) gm/dL Hct (39.0-53.0) % RDW (11.5-15.5) % Plt Count (150-450) k/uL BUN (9-20) mg/dL Glucose (74-99) mg/dL POC Glucose (mg/dL) 145 H 117 H 109 H (75-99) mg/dL AST (17-59) U/L ALT (21-72) U/L Total Protein (6.3-8.2) g/dL Albumin (3.5-5.0) g/dL 09/26/18 09/26/18 09/27/18 Range/Units 22:56 23:54 00:57 WBC (3.8-10.6) k/uL RBC (4.30-5.90) m/uL Hgb (13.0-17.5) gm/dL Hct (39.0-53.0) % RDW (11.5-15.5) % Plt Count (150-450) k/uL BUN (9-20) mg/dL Glucose (74-99) mg/dL POC Glucose (mg/dL) 125 H 135 H 130 H (75-99) mg/dL AST (17-59) U/L ALT (21-72) U/L Total Protein (6.3-8.2) g/dL Albumin (3.5-5.0) g/dL 09/27/18 09/27/18 09/27/18 Range/Units 03:18 04:01 05:32 WBC (3.8-10.6) k/uL RBC (4.30-5.90) m/uL Hgb (13.0-17.5) gm/dL Hct (39.0-53.0) % RDW (11.5-15.5) % Plt Count (150-450) k/uL BUN 34 H (9-20) mg/dL Glucose 107 H (74-99) mg/dL POC Glucose (mg/dL) 124 H 116 H (75-99) mg/dL AST 142 H (17-59) U/L ALT 129 H (21-72) U/L Total Protein 5.4 L (6.3-8.2) g/dL Albumin 3.3 L (3.5-5.0) g/dL 09/27/18 09/27/18 09/27/18 Range/Units 05:32 05:52 07:01 WBC (3.8-10.6) k/uL RBC 2.15 L (4.30-5.90) m/uL Hgb 6.3 L* (13.0-17.5) gm/dL Hct 20.0 L (39.0-53.0) % RDW (11.5-15.5) % Plt Count 136 L (150-450) k/uL BUN (9-20) mg/dL Glucose (74-99) mg/dL POC Glucose (mg/dL) 116 H 128 H (75-99) mg/dL AST (17-59) U/L ALT (21-72) U/L Total Protein (6.3-8.2) g/dL Albumin (3.5-5.0) g/dL 09/27/18 09/27/18 09/27/18 Range/Units 08:48 10:21 10:43 WBC 10.7 H (3.8-10.6) k/uL RBC 2.27 L (4.30-5.90) m/uL Hgb 7.1 L (13.0-17.5) gm/dL Hct 20.6 L (39.0-53.0) % RDW 15.6 H (11.5-15.5) % Plt Count (150-450) k/uL BUN (9-20) mg/dL Glucose (74-99) mg/dL POC Glucose (mg/dL) 154 H 156 H (75-99) mg/dL AST (17-59) U/L ALT (21-72) U/L Total Protein (6.3-8.2) g/dL Albumin (3.5-5.0) g/dL 09/27/18 Range/Units 12:14 WBC (3.8-10.6) k/uL RBC (4.30-5.90) m/uL Hgb (13.0-17.5) gm/dL Hct (39.0-53.0) % RDW (11.5-15.5) % Plt Count (150-450) k/uL BUN (9-20) mg/dL Glucose (74-99) mg/dL POC Glucose (mg/dL) 126 H (75-99) mg/dL AST (17-59) U/L ALT (21-72) U/L Total Protein (6.3-8.2) g/dL Albumin (3.5-5.0) g/dL Assessment and Plan (1) Status post aortic valve replacement Current Visit: Yes Status: Acute Code(s): Z95.2 - PRESENCE OF PROSTHETIC HEART VALVE SNOMED Code(s): 1041400641561 (2) Status post aorto-coronary artery bypass graft Current Visit: Yes Status: Acute Code(s): Z95.1 - PRESENCE OF AORTOCORONARY BYPASS GRAFT SNOMED Code(s): 961977064 (3) COPD (chronic obstructive pulmonary disease) Current Visit: Yes Status: Chronic Code(s): J44.9 - CHRONIC OBSTRUCTIVE PULMONARY DISEASE, UNSPECIFIED SNOMED Code(s): 52870625 (4) Hyperlipidemia Current Visit: No Status: Chronic Code(s): E78.5 - HYPERLIPIDEMIA, UNSPECIFIED SNOMED Code(s): 63496839 (5) Hypertension Current Visit: No Status: Chronic Code(s): I10 - ESSENTIAL (PRIMARY) HYPERTENSION SNOMED Code(s): 88979698 (6) Morbid obesity Current Visit: No Status: Chronic Code(s): E66.01 - MORBID (SEVERE) OBESITY DUE TO EXCESS CALORIES SNOMED Code(s): 037144727 Plan: Continue current management. He is hemoglobin is maintaining about 7.1 after one unit of blood transfusion. Patient was instructed and steroids. Continue rest of the medications. Increase activity and continue with incentive spirometry
[2018-09-27 17:00] LABS: Glucose,Whole Blood 136 mg/dL (75-99)
[2018-09-27 18:35] LABS: Glucose,Whole Blood 207 mg/dL (75-99)
[2018-09-27] MEDS: BUDESONIDE 1 MG/2 ML NEBU INHALATION SCH (20:07)
[2018-09-27 20:09] LABS: Glucose,Whole Blood 186 mg/dL (75-99)
[2018-09-27] MEDS: SENNOSIDES-DOCUSATE SODIUM 1 EACH TAB PO SCH (20:30)
[2018-09-27] MEDS ORDERED: METOPROLOL TARTRATE 25 MG TAB PO SCH (21:00)
[2018-09-27 22:04] LABS: Glucose,Whole Blood 134 mg/dL (75-99)
[2018-09-27] MEDS: INSULIN DETEMIR (LEVEMIR) 100 UNIT/ML SYR SQ SCH (23:24)
--- NOTE | 2018-09-27 23:49 | PN ---
PROGRESS NOTE DATE OF SERVICE: 09/27/2018. PRESENTING COMPLAINT: CABG. INTERVAL HISTORY: Patient is status post coronary bypass and aortic valve replacement with a prosthetic valve. Doing better, more cheerful. Oral intake did get better. Overall feeling a bit better. Using the . Did take a few steps. REVIEW OF SYSTEMS: Done for constitutional, cardiovascular, GI, pulmonary; relevant findings as above. CURRENT MEDICATIONS: Include insulin drip, Amiodarone. PHYSICAL EXAMINATION: VITAL SIGNS: Temperature 98.4, pulse 77, respiratory rate 18, blood pressure 106/70, pulse ox 93 percent on nasal cannula. GENERAL APPEARANCE: Sitting up in a chair, awake. Looks a bit better. EYES: Pupil equal. Conjunctivae pale. NECK: JVD unable to assess. Mass not palpable. Respiratory effort increased. LUNGS: Distant breath sounds. CARDIOVASCULAR: Heart sounds muffled. No edema. ABDOMEN: Distended, soft. Liver and spleen not palpable. PSYCHIATRY: Alert and oriented x3. Mood and affect normal. INVESTIGATIONS: Accu-Cheks are noted. White count 10.7, hemoglobin 7.1, platelets 168,000. ASSESSMENT: 1. Coronary bypass and aortic valve replacement, prosthetic valve. 2. Essential hypertension. 3. Hyperlipidemia. 4. Acute postoperative blood-loss anemia as expected from surgery. 5. Dilutional thrombocytopenia corrected. 6. Morbid obesity BMI 41.1. 7. Hyperkalemia corrected. 8. Acute respiratory failure with ventilator assistance, status post non-nasal cannula. 9. Hyperglycemia uncontrolled. Patient on insulin drip. PLAN: Continue current medication and treatment plan. The patient will be switched over to Lantus 18 units at night and 4 units with meals sliding scale and go from there. MMODL / IJN: [id number] /
[2018-09-28] MEDS: KETOROLAC 30 MG/ML 1 ML VIAL IVP SCH ×4 (00:18→20:53)
[2018-09-28] MEDS: HEPARIN SODIUM,PORCINE 5,000 UNIT/ML 1 ML VIAL SQ SCH ×3 (00:18→17:04)
[2018-09-28] MEDS: HYDROcodone/APAP 5-325MG 1 EACH TAB PO PRN ×4 (00:20→20:51)
[2018-09-28] MEDS: methylPREDNISolone SOD SUCCI 125 MG/2 ML VIAL IV SCH ×3 (00:20→17:04)
[2018-09-28 05:48] LABS: HCT 21.4 % (39.0-53.0); Hypochromasia Slight; MCH 29.7 pg (25.0-35.0); MCHC 31.1 g/dL (31.0-37.0); MCV 95.4 fL (80.0-100.0); Mean Platelet Volume 8.1; Platelet Count 177 k/uL (150-450); RBC 2.24 m/uL (4.30-5.90); RDW 15.2 % (11.5-15.5)
[2018-09-28 06:05] LABS: HGB 6.6 gm/dL (13.0-17.5)
[2018-09-28 06:20] LABS: ALT 123 U/L (21-72); AST 99 U/L (17-59); Albumin 3.3 g/dL (3.5-5.0); Alkaline Phosphatase 120 U/L (38-126); Anion Gap 9 mmol/L; Blood Urea Nitrogen 43 mg/dL (9-20); Calcium 8.4 mg/dL (8.4-10.2); Carbon Dioxide 27 mmol/L (22-30); Chloride 104 mmol/L (98-107); Glucose 145 mg/dL (74-99); Potassium 4.9 mmol/L (3.5-5.1); Sodium 140 mmol/L (137-145); Total Bilirubin 0.7 mg/dL (0.2-1.3); Total Protein 5.7 g/dL (6.3-8.2)
[2018-09-28] MEDS: INSULIN ASPART (NovoLOG) 100 UNIT/ML VIAL SQ SCH ×6 (07:15→20:54)
[2018-09-28 07:20] LABS: Glucose,Whole Blood 182 mg/dL (75-99)
[2018-09-28] MEDS: IPRATROPIUM-ALBUTEROL 3 ML NEB INHALATION SCH ×4 (07:36→20:50)
[2018-09-28] MEDS: BUDESONIDE 1 MG/2 ML NEBU INHALATION SCH ×2 (07:36→20:50)
--- NOTE | 2018-09-28 07:36 | XR ---
EXAMINATION TYPE: XR chest 2V DATE OF EXAM: 09/28/2018 COMPARISON: 09/27/2018 HISTORY: Post cardiac surgery. Follow-up exam. TECHNIQUE: Frontal and lateral views of the chest are obtained. FINDINGS: Minimal bibasilar atelectasis is noted as well as elevation of the right hemidiaphragm unc hanged from the prior. Very mild interstitial edema is improved from the prior. Cardia mediastinal si lhouette is mildly enlarged with postoperative change. No sizable pneumothorax. Osseous structures ar e grossly intact. Right internal jugular central venous catheter sheath has been removed in the inter im. IMPRESSION: Improved very minimal interstitial edema and bibasilar atelectasis.
[2018-09-28] MEDS ORDERED: FUROSEMIDE 10 MG/ML 4 ML VIAL IV STA (08:55)
[2018-09-28] MEDS: ATORVASTATIN 40 MG TAB PO SCH (09:12)
[2018-09-28] MEDS: METOPROLOL TARTRATE 25 MG TAB PO SCH ×3 (09:12→21:02)
[2018-09-28] MEDS: CLOPIDOGREL 75 MG TAB PO SCH (09:12)
[2018-09-28] MEDS: ASPIRIN 81 MG PO SCH (09:12)
[2018-09-28] MEDS: PANTOPRAZOLE 40 MG TABLET PO SCH (09:15)
--- NOTE | 2018-09-28 10:38 | P.PN ---
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 POD #4 triple coronary artery bypass grafting using the left internal mammary artery to the left anterior descending artery, a reverse greater saphenous vein graft from the aorta to the first diagonal artery, a reverse greater saphenous vein graft from the aorta to the first obtuse marginal artery. Aortic valve replacement using a 27 mm pericardial bioprosthesis Magna Ease. Exclusion of the left atrial appendage using a 40 mm AtriClip. Endoscopic vein harvesting of the right greater saphenous vein from the groin to above the ankle level. Intraoperative transesophageal echocardiogram and epi-aortic scanning. Intraoperative graft flow measurements using the [employer] system. Postoperative acute blood loss anemia, an expected outcome given cardiopulmonary bypass and hemodilution. The patient is currently sitting up to the bedside chair. He is in no acute distress. He denies any complaints of pain at this time and states his shortness of breath has much improved today. He also reports that he feels he is wheezing less today. He is achieving 1500 mL on his incentive spirometry with encouragement. Oxygen saturation are 94% on 3 L nasal cannula. He remains hemodynamically stable. His hemoglobin is 6.6 this morning. Bedside telemetry showing normal sinus rhythm heart rate 98. Objective - Vital Signs Vital signs: Vital Signs Temp 98.7 F 09/28/18 04:00 Pulse 106 H 09/28/18 07:56 Resp 13 09/28/18 07:00 BP 106/74 09/28/18 07:00 Pulse Ox 94 L 09/28/18 07:00 Intake & Output 09/27/18 09/28/18 09/28/18 18:59 06:59 18:59 Intake Total 825.544 120.949 Output Total 915 Balance -89.456 120.949 Weight 68.5 kg Intake: IV 267 100 Lactated Ringers 1,000 ml 240 100 @ 20 mls/hr IV .Q24H [facility] Rx#:[id number] pressure bag 27 Intake, IV Titration 78.544 20.949 Amount Insulin Regular 100 unit 78.544 20.949 In Sodium Chloride 0.9% 100 ml @ Per Protocol IV .Q0M [facility] Rx#:[id number] Oral 480 Output: Chest Tube Drainage 0 Chest Tube Bilateral 0 Mediastinal Chest Tube Left Lateral 0 Chest Drainage 90 Right Calf 90 Urine 525 Urine/Stool Mix 300 Other: Voiding Method Bedside Commode Bedside Commode Urinal Urinal # Voids 1 1 0 # Bowel Movements 1 1 ABP, PAP, CO, CI - Last Documented Arterial Blood Pressure 96/46 Pulmonary Artery Pressure 271/271 Cardiac Output 8.6 Cardiac Index 3.9 - Constitutional General appearance: Present: cooperative, morbidly obese, no acute distress - Respiratory Details: Lung sounds with few scattered expiratory wheezes throughout, diminished to his bilateral bases. Respirations are symmetrical and nonlabored. Oxygen saturation are 94% on 3 L nasal cannula. He is achieving 1500 mL on his incentive spirometry. - Cardiovascular Details: Regular rhythm and rate. S1 and S2 present, negative for S3, gallop or murmur. Sternum is stable. Bedside telemetry showing normal sinus rhythm with bundle branch block heart rate 98. Atrial and ventricular epicardial pacemaker wires are in place and grounded. Heart hugger is in place and he is demonstrating appropriate use. Knee-high SUZIE hose and sequential compression devices in place was bilateral lower extremities. +1 generalized edema. - Gastrointestinal Gastrointestinal Comment(s): Abdomen is soft, nontender and nondistended. Active bowel sounds to all 4 abdominal quadrants. No guarding or rigidity. No organomegaly. Tolerating oral intake. Bowel movement today 09/28/2017. - Genitourinary Genitourinary Comment(s): Voiding clear lamberto urine. 300 mL output in the last 8 hours. - Integumentary Integumentary Comment(s): Skin is warm and dry. No clubbing or cyanosis is present. Midline sternal incision is clean, dry and approximated. No drainage or redness is present. Right lower extremity EVH harvest sites clean, dry and approximated. No drainage or redness is present. Scant serosanguineous drainage from his LACHO site to his right lower extremity. Ecchymotic area to his right thigh, soft and nontender to palpate. - Neurologic Neurologic: Present: CNII-XII intact - Musculoskeletal Musculoskeletal: Present: gait normal, strength equal bilaterally - Psychiatric Psychiatric: Present: A&O x's 3, appropriate affect, intact judgment & insight - Allied health notes Allied health notes reviewed: nursing - Labs CBC & Chem 7: 09/28/18 04:47 09/28/18 04:47 Labs: Abnormal Lab Results - Last 24 Hours (Table) 09/27/18 09/27/18 09/27/18 Range/Units 10:21 10:43 12:14 WBC 10.7 H (3.8-10.6) k/uL RBC 2.27 L (4.30-5.90) m/uL Hgb 7.1 L (13.0-17.5) gm/dL Hct 20.6 L (39.0-53.0) % RDW 15.6 H (11.5-15.5) % BUN (9-20) mg/dL Glucose (74-99) mg/dL POC Glucose (mg/dL) 156 H 126 H (75-99) mg/dL AST (17-59) U/L ALT (21-72) U/L Total Protein (6.3-8.2) g/dL Albumin (3.5-5.0) g/dL 09/27/18 09/27/18 09/27/18 Range/Units 16:49 18:23 19:57 WBC (3.8-10.6) k/uL RBC (4.30-5.90) m/uL Hgb (13.0-17.5) gm/dL Hct (39.0-53.0) % RDW (11.5-15.5) % BUN (9-20) mg/dL Glucose (74-99) mg/dL POC Glucose (mg/dL) 136 H 207 H 186 H (75-99) mg/dL AST (17-59) U/L ALT (21-72) U/L Total Protein (6.3-8.2) g/dL Albumin (3.5-5.0) g/dL 09/27/18 09/28/18 09/28/18 Range/Units 21:52 04:47 04:47 WBC (3.8-10.6) k/uL RBC 2.24 L (4.30-5.90) m/uL Hgb 6.6 L* (13.0-17.5) gm/dL Hct 21.4 L (39.0-53.0) % RDW (11.5-15.5) % BUN 43 H (9-20) mg/dL Glucose 145 H (74-99) mg/dL POC Glucose (mg/dL) 134 H (75-99) mg/dL AST 99 H (17-59) U/L ALT 123 H (21-72) U/L Total Protein 5.7 L (6.3-8.2) g/dL Albumin 3.3 L (3.5-5.0) g/dL 09/28/18 Range/Units 07:08 WBC (3.8-10.6) k/uL RBC (4.30-5.90) m/uL Hgb (13.0-17.5) gm/dL Hct (39.0-53.0) % RDW (11.5-15.5) % BUN (9-20) mg/dL Glucose (74-99) mg/dL POC Glucose (mg/dL) 182 H (75-99) mg/dL AST (17-59) U/L ALT (21-72) U/L Total Protein (6.3-8.2) g/dL Albumin (3.5-5.0) g/dL - Imaging and Cardiology Chest x-ray: report reviewed, image reviewed Assessment and Plan Assessment: 1. Bicuspid aortic valve with moderate to severe aortic stenosis, status post aortic valve replacement with a 27 mm Magna Ease pericardial bioprosthesis 2. Double vessel coronary artery disease with left main disease, totally occluded left anterior descending artery, status post triple coronary artery bypass grafting with SNELL to the LAD, SVG to diag 1, SVG to OM1 3. Preserved left ventricular systolic function 4. Hypertension 5. Hyperlipidemia 6. Morbid obesity 7. Previous tobacco dependence 8. Mild COPD with preoperative FEV1 64% of predicted 9. Postoperative acute blood loss anemia Plan: 1. Continue low-dose aspirin, statin, Plavix, beta misbah. Will increase his metoprolol tartrate 25 mg by mouth 3 times a day. 2. Wean O2 as tolerated. Encourage incentive spirometry use 10 times every hour while awake. 3. Encourage continued smoking cessation. Bronchodilators and steroid management per pulmonology recommendations. 4. Increase activity, ambulate as tolerated. PT/OT/cardiac rehab following. 5. Will monitor daily labs and x-rays. Electrolyte replacement per protocol. No transfusion today. 6. Pain control with current medication regimen. 7. Insulin management per primary care service. 8. GI prophylaxis with Protonix, DVT prophylaxis with subcu heparin and SCDs. 11. Discontinue epicardial pacemaker wires. Bed rest for 1 hour post pacemaker wire removal. 12. Lasix 40 mg IV 1 now. 13. Gerry wrap to his right lower extremity from toes to thigh. 14. We will transfer the patient to [address] [place] [address] cardiac stepdown unit today for further rehabilitation needs. 15. More recommendations to follow based on patient's clinical course. Epicardial pacemaker wires removed without incident at 9:20 AM today. The pat ient will be on bed rest for 1 hour post pacemaker wire removal. Time with Patient: Greater than 30
--- NOTE | 2018-09-28 11:53 | P.PN ---
Subjective Progress Note Date: 09/28/18 Principal diagnosis: Status post aortic valve replacement and CABG, postoperative day #4 This is a 67-year-old white male with history of severe aortic stenosis, and significant coronary artery disease, recent cardiac catheterization showed total occlusion of LAD, 50-60% left main disease, 70% of the obtuse marginal branch. Patient underwent elective coronary artery bypass surgery with SNELL to LAD, saphenous vein graft to diagonal and saphenous vein graft to obtuse marginal branch. Aortic valve was replaced using a 27 mm pericardial bioprosthesis magna ease. Postoperatively, patient was on mechanical ventilation, and I was asked to see him on consultation. I reviewed his ventilator settings last night, and these were adjusted accordingly. Patient was significantly agitated last night, and could not be weaned because he required significant propofol infusion. This morning the patient is being aroused, we have switched his propofol to Precedex, and we plan to give the patient a weaning trial today. Patient was on IMV rate of 16, PEEP at 10 which I cut down to 5, and FiO2 was 40%. ABG this morning showed a pO2 of 101 pCO2 of 40 pH of 7.42. Chest x-ray showed mostly left lower lobe atelectasis. Patient remains on mechanical ventilation this morning, and he is sedated, in the process of being switched from propofol to Precedex to facilitate weaning process in the next couple of hours. Patient was reevaluated today on 09/26/2018, he was extubated yesterday uneventfully. No major issues overnight, he had slight agitation, otherwise the patient has been doing well. Today no cough no wheezing no shortness of breath, patient is sitting in a bedside chair, and relatively asymptomatic. Still doing poorly with incentive spirometry, but he is working on it. Chest x-ray this morning showed cardiomegaly, and mild pulmonary vascular congestion. Left lung base seems to be aerating better today. His hemoglobin this morning is 6, and the patient would like to be transfused by cardiac surgery. Basic metabolic profile is normal, renal profile is normal. Patient is hemodynamically stable, not requiring any pressors or any inotropes Reevaluated today on 09/27/2018, patient is sitting at a bedside chair, in no distress, however he was noted to have some wheezing on examination. Solu- Medrol was added. A remains on updrafts in the form of DuoNeb 4 times a day and when necessary. He is compliant with his incentive spirometry, achieving about 750 ML. O2 saturation is 93% on 3 L nasal cannula, patient is hemodynamically stable, not requiring any pressors or inotropes. Hemoglobin today was noted to be 7.1. Electrolytes were noted to be normal. Chest x-ray showed small or trace pleural effusion, and basilar atelectasis, expected Reevaluated today on 09/28/2018, patient remains in the ICU, doing quite well, relatively asymptomatic, he remains on 4 L via nasal cannula. And saturating well.denies any pain or shortness of breath, he is wheezing much less today, and breathing a lot easier since the steroids were added yesterday. He is actually doing better with incentive spirometry. O2 saturation is 94% on 4 L. Hemoglobin is low, but no plans to transfuse the patient as. Surgery on the case. Hemoglobin is actually 6.6 today.chest x-ray is showing improvement in his atelectasis but he continues to have minimal atelectasis bibasilar Objective - Vital Signs Vital signs: Vital Signs Temp 98.7 F 09/28/18 04:00 Pulse 106 H 09/28/18 07:56 Resp 13 09/28/18 07:00 BP 106/74 09/28/18 07:00 Pulse Ox 94 L 09/28/18 07:00 Intake & Output 09/27/18 09/28/18 09/28/18 18:59 06:59 18:59 Intake Total 825.544 120.949 Output Total 915 Balance -89.456 120.949 Weight 68.5 kg Intake: IV 267 100 Lactated Ringers 1,000 ml 240 100 @ 20 mls/hr IV .Q24H [facility] Rx#:[id number] pressure bag 27 Intake, IV Titration 78.544 20.949 Amount Insulin Regular 100 unit 78.544 20.949 In Sodium Chloride 0.9% 100 ml @ Per Protocol IV .Q0M [facility] Rx#:[id number] Oral 480 Output: Chest Tube Drainage 0 Chest Tube Bilateral 0 Mediastinal Chest Tube Left Lateral 0 Chest Drainage 90 Right Calf 90 Urine 525 Urine/Stool Mix 300 Other: Voiding Method Bedside Commode Bedside Commode Urinal Urinal # Voids 1 1 0 # Bowel Movements 1 1 ABP, PAP, CO, CI - Last Documented Arterial Blood Pressure 96/46 Pulmonary Artery Pressure 271/271 Cardiac Output 8.6 Cardiac Index 3.9 - Exam Physical Exam: Revealed a 67-year-old white male, obese in no distress. On 4 L nasal cannula. Head: Atraumatic, normocephalic. HEENT:[Neck is supple.] [No neck masses.] [No thyromegaly.] [No JVD.] Chest: [diminished breath sound bilaterally no crackles or rhonchi or wheezes. Cardiac Exam: [Normal S1 and S2, no S3 gallop, no murmur.] Abdomen: [Soft, nontender, no megaly, no rebound, no guarding, normal bowel sounds.] Extremities: [No clubbing, no edema, no cyanosis.] Neurological Exam: [No focal neurologic deficit.] Psychiatric: Normal mood affect and mental status examination. - Labs CBC & Chem 7: 09/28/18 04:47 09/28/18 04:47 Labs: Abnormal Lab Results - Last 24 Hours (Table) 09/27/18 09/27/18 09/27/18 Range/Units 12:14 16:49 18:23 RBC (4.30-5.90) m/uL Hgb (13.0-17.5) gm/dL Hct (39.0-53.0) % BUN (9-20) mg/dL Glucose (74-99) mg/dL POC Glucose (mg/dL) 126 H 136 H 207 H (75-99) mg/dL AST (17-59) U/L ALT (21-72) U/L Total Protein (6.3-8.2) g/dL Albumin (3.5-5.0) g/dL 09/27/18 09/27/18 09/28/18 Range/Units 19:57 21:52 04:47 RBC 2.24 L (4.30-5.90) m/uL Hgb 6.6 L* (13.0-17.5) gm/dL Hct 21.4 L (39.0-53.0) % BUN (9-20) mg/dL Glucose (74-99) mg/dL POC Glucose (mg/dL) 186 H 134 H (75-99) mg/dL AST (17-59) U/L ALT (21-72) U/L Total Protein (6.3-8.2) g/dL Albumin (3.5-5.0) g/dL 09/28/18 09/28/18 Range/Units 04:47 07:08 RBC (4.30-5.90) m/uL Hgb (13.0-17.5) gm/dL Hct (39.0-53.0) % BUN 43 H (9-20) mg/dL Glucose 145 H (74-99) mg/dL POC Glucose (mg/dL) 182 H (75-99) mg/dL AST 99 H (17-59) U/L ALT 123 H (21-72) U/L Total Protein 5.7 L (6.3-8.2) g/dL Albumin 3.3 L (3.5-5.0) g/dL Assessment and Plan Assessment: Impression: 1 bicuspid aortic valve with moderate to severe aortic stenosis, status post aortic valve replacement postoperative day #4 22 vessel coronary artery disease with left main disease, status post CABG postoperative day #4 3 postoperative left lower lobe atelectasis, expected finding after such surgery. resolved 4 suspect some component of COPD exacerbation, continue DuoNeb, Pulmicort, and Solu-Medrol for now 4 multiple comorbidities including mild to moderate COPD, FEV1 is in the range of 64% preoperatively. Morbid obesity, hyperlipidemia, hypertension, Recommendation: Continue updrafts, continue incentive spirometry, ambulate, continue bronchodilators and steroids, may require transfusion, however the decision will be left to the surgeon on the case. We will continue to follow, patient is not quite ready to be transferred out of the ICU. Time with Patient: Less than 30
[2018-09-28 12:01] LABS: Glucose,Whole Blood 189 mg/dL (75-99)
[2018-09-28] MEDS: FERROUS SULFATE 325 MG TAB PO SCH (12:01)
[2018-09-28] MEDS: CHOLECALCIFEROL 1,000 UNIT TAB PO SCH (12:01)
[2018-09-28] MEDS: ASCORBIC ACID 500 MG TAB PO SCH (12:01)
[2018-09-28 17:05] LABS: Glucose,Whole Blood 261 mg/dL (75-99)
--- NOTE | 2018-09-28 17:34 | P.PN ---
Subjective Progress Note Date: 09/28/18 This is a 67-year-old white male who is status post aortic coronary placement and also aortic coronary bypass surgery. Patient had a SNELL graft to the LAD, vein graft to the diagonal and vein graft to the OM branch. Patient is currently extubated and sitting in the chair. Complaints of having chest disc omfort. Doesn't appear in any acute respiratory distress. Patient seemed to be doing poorly with incentive spirometry. Chest x-ray showed cardiomegaly with mild pulmonary vascular congestion. His hemoglobin dropped to 6 g. Patient is going to be transfused 1 unit. Renal functions are normal. No arrhythmias are detected. 09/27/2018: . Patient making gradual progress. Still complains of being weak and tired. Patient using incentive spirometry and seem to be changing about 750 mL. Hemodynamically otherwise stable. His lab values showed stable renal function. Patient is maintaining sinus rhythm. Patient is not on any pressors. Chest x-ray showed small pleural effusion and basilar akinesis. Overall, patient is clinically stable. No arrhythmias are noted. Patient was started on steroids for wheezing. We'll increase activity as tolerated. Continue incentive spirometry. 09/28/2018: Patient is feeling quite well today. He is 2 L nasal cannula. Saturating very well. Maintaining sinus rhythm. Denies any significant chest pain. He is also eating better Lungs show less wheezing. His hemoglobin is about 6.6. Chest x-ray showed some improvement. No transfusion planned at this time. Increase activity as tolerated. Transfer to telemetry unit soon. Objective - Vital Signs Vital signs: Vital Signs Temp 98.6 F 09/28/18 12:00 Pulse 80 09/28/18 16:06 Resp 14 09/28/18 15:57 BP 118/78 09/28/18 13:00 Pulse Ox 97 09/28/18 12:00 Intake & Output 09/27/18 09/28/18 09/28/18 18:59 06:59 18:59 Intake Total 825.544 120.949 800 Output Total 915 950 Balance -89.456 120.949 -150 Weight 68.5 kg Intake: IV 267 100 Lactated Ringers 1,000 ml 240 100 @ 20 mls/hr IV .Q24H [facility] Rx#:[id number] pressure bag 27 Intake, IV Titration 78.544 20.949 Amount Insulin Regular 100 unit 78.544 20.949 In Sodium Chloride 0.9% 100 ml @ Per Protocol IV .Q0M [facility] Rx#:[id number] Oral 480 560 Tube Feeding 240 Output: Chest Tube Drainage 0 Chest Tube Bilateral 0 Mediastinal Chest Tube Left Lateral 0 Chest Drainage 90 Right Calf 90 Urine 525 950 Urine/Stool Mix 300 Other: Voiding Method Bedside Commode Bedside Commode Bedside Commode Urinal Urinal Urinal # Voids 1 1 0 # Bowel Movements 1 1 1 ABP, PAP, CO, CI - Last Documented Arterial Blood Pressure 96/46 Pulmonary Artery Pressure 271/271 Cardiac Output 8.6 Cardiac Index 3.9 - Exam GENERAL EXAM: Patient is alert and oriented and doesn't appear to be in any acute distress HEENT: Normocephalic. Normal reaction of pupils, equal size, normal range of extraocular motion. No erythema or exudates in throat. NECK: No masses, no nuchal rigidity. CHEST: No chest wall deformity. LUNGS: Diminished breath sounds at bases HEART: S1 and S2 normal ABDOMEN: No hepatosplenomegaly, normal bowel sounds, no guarding or rigidity. SKIN: No rashes CENTRAL NERVOUS SYSTEM: No focal deficits. EXTREMITIES: No cyanosis, clubbing or edema. - Labs CBC & Chem 7: 09/28/18 04:47 09/28/18 04:47 Labs: Abnormal Lab Results - Last 24 Hours (Table) 09/27/18 09/27/18 09/27/18 Range/Units 18:23 19:57 21:52 RBC (4.30-5.90) m/uL Hgb (13.0-17.5) gm/dL Hct (39.0-53.0) % BUN (9-20) mg/dL Glucose (74-99) mg/dL POC Glucose (mg/dL) 207 H 186 H 134 H (75-99) mg/dL AST (17-59) U/L ALT (21-72) U/L Total Protein (6.3-8.2) g/dL Albumin (3.5-5.0) g/dL 09/28/18 09/28/18 09/28/18 Range/Units 04:47 04:47 07:08 RBC 2.24 L (4.30-5.90) m/uL Hgb 6.6 L* (13.0-17.5) gm/dL Hct 21.4 L (39.0-53.0) % BUN 43 H (9-20) mg/dL Glucose 145 H (74-99) mg/dL POC Glucose (mg/dL) 182 H (75-99) mg/dL AST 99 H (17-59) U/L ALT 123 H (21-72) U/L Total Protein 5.7 L (6.3-8.2) g/dL Albumin 3.3 L (3.5-5.0) g/dL 09/28/18 09/28/18 Range/Units 11:50 16:54 RBC (4.30-5.90) m/uL Hgb (13.0-17.5) gm/dL Hct (39.0-53.0) % BUN (9-20) mg/dL Glucose (74-99) mg/dL POC Glucose (mg/dL) 189 H 261 H (75-99) mg/dL AST (17-59) U/L ALT (21-72) U/L Total Protein (6.3-8.2) g/dL Albumin (3.5-5.0) g/dL Assessment and Plan (1) Status post aortic valve replacement Current Visit: Yes Status: Acute Code(s): Z95.2 - PRESENCE OF PROSTHETIC HEART VALVE SNOMED Code(s): 2011225888037 (2) Status post aorto-coronary artery bypass graft Current Visit: Yes Status: Acute Code(s): Z95.1 - PRESENCE OF AORTOCORONARY BYPASS GRAFT SNOMED Code(s): 523702973 (3) COPD (chronic obstructive pulmonary disease) Current Visit: Yes Status: Chronic Code(s): J44.9 - CHRONIC OBSTRUCTIVE PULMONARY DISEASE, UNSPECIFIED SNOMED Code(s): 15590828 (4) Hyperlipidemia Current Visit: No Status: Chronic Code(s): E78.5 - HYPERLIPIDEMIA, UNSPECIFIED SNOMED Code(s): 81087870 (5) Hypertension Current Visit: No Status: Chronic Code(s): I10 - ESSENTIAL (PRIMARY) HYPERTENSION SNOMED Code(s): 27124918 (6) Morbid obesity Current Visit: No Status: Chronic Code(s): E66.01 - MORBID (SEVERE) OBESITY DUE TO EXCESS CALORIES SNOMED Code(s): 425687559 Plan: Patient has shown significant improvement since yesterday. He is feeling better, eating better. Maintaining sinus rhythm. Increase activity as tolerated. Incentive spirometry
[2018-09-28 20:49] LABS: Glucose,Whole Blood 293 mg/dL (75-99)
[2018-09-28] MEDS: SENNOSIDES-DOCUSATE SODIUM 1 EACH TAB PO SCH (20:51)
[2018-09-28] MEDS: INSULIN DETEMIR (LEVEMIR) 100 UNIT/ML SYR SQ SCH (20:51)
[2018-09-28] MEDS ORDERED: INSULIN DETEMIR (LEVEMIR) 100 UNIT/ML SYR SQ ONE (21:30)
--- NOTE | 2018-09-28 22:20 | PN ---
PROGRESS NOTE DATE OF SERVICE: 09/28/2018. PRESENTING COMPLAINT: CABG. INTERVAL HISTORY: Patient is status post coronary bypass and aortic valve replacement with prosthetic valve. Continues to feel well. Doing better on 2 L nasal cannula. Chest tubes came out yesterday. Did have a bowel movement. Eating well. Using the IS anywhere from 1000 to 1500 mL. Breathing is getting better. REVIEW OF SYSTEMS: Done for constitutional, cardiovascular, GI, pulmonary; relevant findings as above. CURRENT MEDICATIONS: Reviewed. PHYSICAL EXAMINATION: VITAL SIGNS: Temperature 97.3, pulse 75, respiratory rate 18, blood pressure 121/84, pulse ox 95% on nasal cannula. GENERAL APPEARANCE: Sitting up in a chair, awake. EYES: Pupils equal. Conjunctivae pale. NECK: JVD unable to assess. Mass not palpable. Respiratory effort increased. LUNGS: Distant breath sounds. CARDIOVASCULAR: Heart sounds muffled. No edema. ABDOMEN: Distended, soft. Liver and spleen not palpable. PSYCHIATRY: Alert and oriented x3. Mood and affect normal. INVESTIGATIONS: White count 10, hemoglobin 6.6, potassium 4.9, BUN 43, creatinine 0.93, albumin 3.3, AST 99, ALT 123. Accu-Cheks 182, 189, 261. ASSESSMENT: 1. Coronary bypass with aortic valve replacement, prosthetic valve. 2. Essential hypertension. 3. Hyperlipidemia. 4. Acute postoperative blood loss anemia expected from surgery. 5. Item dilutional thrombocytopenia corrected. 6. Morbid obesity BMI 41.1. 7. Hyperkalemia corrected. 8. Acute respiratory failure with ventilator assistance, now on nasal cannula. 9. Hyperglycemia uncontrolled status post insulin drip, now on Levemir. PLAN: Continue current medication and treatment plan. Sugars are still running high. Increase the evening dose of Levemir to 22 units. Will give additional 4 units for tonight. MMODL / IJN: [id number] /
[2018-09-29] MEDS: KETOROLAC 30 MG/ML 1 ML VIAL IVP SCH ×5 (01:23→19:22)
[2018-09-29] MEDS: methylPREDNISolone SOD SUCCI 125 MG/2 ML VIAL IV SCH ×2 (01:23→10:13)
[2018-09-29] MEDS: HEPARIN SODIUM,PORCINE 5,000 UNIT/ML 1 ML VIAL SQ SCH ×3 (01:24→17:03)
[2018-09-29 06:55] LABS: Glucose,Whole Blood 173 mg/dL (75-99)
[2018-09-29 06:56] LABS: Anisocytosis Slight; HCT 21.3 % (39.0-53.0); Hypochromasia Slight; MCH 30.9 pg (25.0-35.0); MCV 93.8 fL (80.0-100.0); Mean Platelet Volume 7.2; Platelet Count 275 k/uL (150-450); RBC 2.27 m/uL (4.30-5.90); RDW 16.3 % (11.5-15.5); WBC 13.4 k/uL (3.8-10.6)
[2018-09-29 07:04] LABS: Calcium 8.6 mg/dL (8.4-10.2); Potassium 4.4 mmol/L (3.5-5.1)
[2018-09-29] MEDS: INSULIN ASPART (NovoLOG) 100 UNIT/ML VIAL SQ SCH ×6 (07:19→21:00)
[2018-09-29] MEDS ORDERED: ACETAMINOPHEN TAB 325 MG TAB PO PRN ×2 (07:39)
[2018-09-29] MEDS: IPRATROPIUM-ALBUTEROL 3 ML NEB INHALATION SCH ×4 (07:47→20:48)
[2018-09-29] MEDS: BUDESONIDE 1 MG/2 ML NEBU INHALATION SCH (07:47)
--- NOTE | 2018-09-29 08:07 | XR ---
EXAMINATION TYPE: XR chest 2V DATE OF EXAM: 09/29/2018 COMPARISON: Prior chest 09/28/2018 HISTORY: Postop coronary artery bypass graft, aortic valve replacement TECHNIQUE: Frontal and lateral views of the chest are obtained. FINDINGS: Patient is post median sternotomy, atrial appendage clipping, aortic valve replacement. Th ere is persistent blunting of the right costophrenic angle, obscured right hemidiaphragm. No evident pneumothorax. Heart size is stable. Aorta is dense. Left lung is well aerated. Prominent lung volumes suggest underlying COPD. IMPRESSION: Probable right pleural effusion and associated atelectasis.
[2018-09-29] MEDS: PANTOPRAZOLE 40 MG TABLET PO SCH (10:14)
[2018-09-29] MEDS: ATORVASTATIN 40 MG TAB PO SCH (10:14)
[2018-09-29] MEDS: CLOPIDOGREL 75 MG TAB PO SCH (10:14)
[2018-09-29] MEDS: METOPROLOL TARTRATE 25 MG TAB PO SCH ×3 (10:14→21:03)
[2018-09-29] MEDS: ASPIRIN 81 MG PO SCH (10:14)
--- NOTE | 2018-09-29 10:53 | P.PN ---
Subjective Progress Note Date: 09/29/18 Principal diagnosis: Bicuspid aortic valve with moderate to severe aortic stenosis, double vessel coronary artery disease with left main disease with a totally occluded left anterior descending artery, preserved left ventricular systolic function, obesity, hyperlipidemia, hypertension, congestive heart failure, previous tobacco dependence, mild COPD with preoperative FEV1 64% of predicted. POD #5 triple coronary artery bypass grafting using the left internal mammary artery to the left anterior descending artery, a reverse greater saphenous vein graft from the aorta to the first diagonal artery, a reverse greater saphenous vein graft from the aorta to the first obtuse marginal artery. Aortic valve replacement using a 27 mm pericardial bioprosthesis Magna Ease. Exclusion of the left atrial appendage using a 40 mm AtriClip. Endoscopic vein harvesting of the right greater saphenous vein from the groin to above the ankle level. Intraoperative transesophageal echocardiogram and epi-aortic scanning. Intraoperative graft flow measurements using the [employer] system. Postoperative acute blood loss anemia, an expected outcome given cardiopulmonary bypass and hemodilution. The patient is currently sitting up to the bedside chair. He is in no acute distress. He denies any complaints of pain, although states that he feels somewhat short of breath this morning with increased wheezing. He is achieving 1000 mL on his incentive spirometry with encouragement. Oxygen saturation are 92% on room air. He remains hemodynamically stable. His hemoglobin is 7.0 this morning. Remote elemetry showing normal sinus rhythm heart rate 67. Patient reports he ambulated in the intensive care unit hallway yesterday 3. Objective - Vital Signs Vital signs: Vital Signs Temp 98.0 F 09/29/18 08:00 Pulse 84 09/29/18 08:02 Resp 24 09/29/18 08:00 BP 127/80 09/29/18 08:00 Pulse Ox 92 L 09/29/18 04:00 Intake & Output 09/28/18 09/29/18 09/29/18 17:59 06:59 18:59 Intake Total 480 Output Total Balance 480 Weight Intake: Oral 480 Tube Feeding Output: Urine Other: Voiding Method Bedside Commode Urinal # Voids # Bowel Movements ABP, PAP, CO, CI - Last Documented Arterial Blood Pressure 96/46 Pulmonary Artery Pressure 271/271 Cardiac Output 8.6 Cardiac Index 3.9 - Constitutional General appearance: Present: cooperative, morbidly obese, no acute distress - Respiratory Details: Lung sounds with expiratory wheezes throughout, diminished to bilateral bases. Respirations are symmetrical and nonlabored. Oxygen saturation are 92% on room air. He is achieving 1000 mL on his incentive spirometry with encouragement. - Cardiovascular Details: Regular rhythm and rate. S1 and S2 present, negative for S3, gallop or murmur. Sternum is stable. Remote telemetry showing normal sinus rhythm heart rate 67. +1 Generalized edema to his bilateral lower extremities. Knee-high SUZIE hose and sequential compression devices in place to his bilateral lower extremities. Heart hugger is in place and he is demonstrating appropriate use. - Gastrointestinal Gastrointestinal Comment(s): Abdomen is soft, nontender and nondistended. Active bowel sounds all 4 abdominal quadrants. Tolerating oral intake. Bowel movement yesterday 09/28/2017. - Genitourinary Genitourinary Comment(s): Voiding clear yellow urine. 450 mL output in the last 8 hours. - Integumentary Integumentary Comment(s): Skin is warm and dry. No clubbing or cyanosis is present. Midline sternal incision is clean, dry and approximated. No drainage or redness is present. Gauze dressing is clean, dry and intact. Right lower extremity EVH site clean, dry and approximated. No drainage or redness is present. Scattered ecchymotic areas to his right thigh which is nontender and soft palpate. - Neurologic Neurologic: Present: CNII-XII intact - Musculoskeletal Musculoskeletal: Present: gait normal, generalized weakness, strength equal bilaterally - Allied health notes Allied health notes reviewed: nursing - Labs CBC & Chem 7: 09/29/18 06:12 09/29/18 06:12 Labs: Abnormal Lab Results - Last 24 Hours (Table) 09/28/18 09/28/18 09/28/18 Range/Units 11:50 16:54 20:38 WBC (3.8-10.6) k/uL RBC (4.30-5.90) m/uL Hgb (13.0-17.5) gm/dL Hct (39.0-53.0) % RDW (11.5-15.5) % BUN (9-20) mg/dL Glucose (74-99) mg/dL POC Glucose (mg/dL) 189 H 261 H 293 H (75-99) mg/dL 09/29/18 09/29/18 09/29/18 Range/Units 06:12 06:12 06:43 WBC 13.4 H (3.8-10.6) k/uL RBC 2.27 L (4.30-5.90) m/uL Hgb 7.0 L (13.0-17.5) gm/dL Hct 21.3 L (39.0-53.0) % RDW 16.3 H (11.5-15.5) % BUN 49 H (9-20) mg/dL Glucose 150 H (74-99) mg/dL POC Glucose (mg/dL) 173 H (75-99) mg/dL - Imaging and Cardiology Chest x-ray: report reviewed, image reviewed Assessment and Plan Assessment: 1. Bicuspid aortic valve with moderate to severe aortic stenosis, status post aortic valve replacement with a 27 mm Magna Ease pericardial bioprosthesis 2. Double vessel coronary artery disease with left main disease, totally occluded left anterior descending artery, status post triple coronary artery bypass grafting with SNELL to the LAD, SVG to diag 1, SVG to OM1 3. Preserved left ventricular systolic function 4. Hypertension 5. Hyperlipidemia 6. Morbid obesity 7. Previous tobacco dependence 8. Mild COPD with preoperative FEV1 64% of predicted 9. Postoperative acute blood loss anemia Plan: 1. Continue low-dose aspirin, statin, Plavix, beta misbah. Will increase his beta misbah as tolerated. 2. Encourage incentive spirometry use 10 times every hour while awake. 3. Bronchodilators and steroid management per pulmonology recommendations. 4. Increase activity, ambulate as tolerated. PT/OT/cardiac rehab following. 5. Will monitor daily labs and x-rays. Electrolyte replacement per protocol. No transfusion today. 6. Pain control with current medication regimen. 7. Insulin management per primary care service. 8. GI prophylaxis with Protonix, DVT prophylaxis with subcu heparin and SCDs. 11. Encourage continued smoking cessation. 12. Continue azael wrap to his right lower extremity from toes to thigh. 13. We will transfer the patient to [address] [place] [address] cardiac stepdown unit when bed is available. 14. Consult Dr. Lagos for possible inpatient rehab placement. Discharge planning in place. 15. More recommendations to follow based on patient's clinical course. Time with Patient: Greater than 30
[2018-09-29 11:41] LABS: Glucose,Whole Blood 147 mg/dL (75-99)
--- NOTE | 2018-09-29 13:07 | P.PN ---
Subjective Progress Note Date: 09/29/18 Principal diagnosis: Status post aortic valve replacement and CABG, postoperative day #5 This is a 67-year-old white male with history of severe aortic stenosis, and significant coronary artery disease, recent cardiac catheterization showed total occlusion of LAD, 50-60% left main disease, 70% of the obtuse marginal branch. Patient underwent elective coronary artery bypass surgery with SNELL to LAD, saphenous vein graft to diagonal and saphenous vein graft to obtuse marginal branch. Aortic valve was replaced using a 27 mm pericardial bioprosthesis magna ease. Postoperatively, patient was on mechanical ventilation, and I was asked to see him on consultation. I reviewed his ventilator settings last night, and these were adjusted accordingly. Patient was significantly agitated last night, and could not be weaned because he required significant propofol infusion. This morning the patient is being aroused, we have switched his propofol to Precedex, and we plan to give the patient a weaning trial today. Patient was on IMV rate of 16, PEEP at 10 which I cut down to 5, and FiO2 was 40%. ABG this morning showed a pO2 of 101 pCO2 of 40 pH of 7.42. Chest x-ray showed mostly left lower lobe atelectasis. Patient remains on mechanical ventilation this morning, and he is sedated, in the process of being switched from propofol to Precedex to facilitate weaning process in the next couple of hours. Patient was reevaluated today on 09/26/2018, he was extubated yesterday uneventfully. No major issues overnight, he had slight agitation, otherwise the patient has been doing well. Today no cough no wheezing no shortness of breath, patient is sitting in a bedside chair, and relatively asymptomatic. Still doing poorly with incentive spirometry, but he is working on it. Chest x-ray this morning showed cardiomegaly, and mild pulmonary vascular congestion. Left lung base seems to be aerating better today. His hemoglobin this morning is 6, and the patient would like to be transfused by cardiac surgery. Basic metabolic profile is normal, renal profile is normal. Patient is hemodynamically stable, not requiring any pressors or any inotropes Reevaluated today on 09/27/2018, patient is sitting at a bedside chair, in no distress, however he was noted to have some wheezing on examination. Solu- Medrol was added. A remains on updrafts in the form of DuoNeb 4 times a day and when necessary. He is compliant with his incentive spirometry, achieving about 750 ML. O2 saturation is 93% on 3 L nasal cannula, patient is hemodynamically stable, not requiring any pressors or inotropes. Hemoglobin today was noted to be 7.1. Electrolytes were noted to be normal. Chest x-ray showed small or trace pleural effusion, and basilar atelectasis, expected Reevaluated today on 09/28/2018, patient remains in the ICU, doing quite well, relatively asymptomatic, he remains on 4 L via nasal cannula. And saturating well.denies any pain or shortness of breath, he is wheezing much less today, and breathing a lot easier since the steroids were added yesterday. He is actually doing better with incentive spirometry. O2 saturation is 94% on 4 L. Hemoglobin is low, but no plans to transfuse the patient as. Surgery on the case. Hemoglobin is actually 6.6 today.chest x-ray is showing improvement in his atelectasis but he continues to have minimal atelectasis bibasilar Reevaluated today on 09/29/2018, patient is in the ICU, and seems to be doing well except for occasional cough and wheezing. He is maximized on bronchodilators, he is also on steroids, today I have recommended that we give him Solu-Medrol, and since he is being considered for discharge, I will go ahead and switch him to a Medrol Dosepak. I have also recommended other bronchodilators including Symbicort, albuterol and Atrovent updrafts 4 times a day. Overall the patient is doing fairly well, hemoglobin this morning is 7. Patient is in sinus rhythm, and he is hemodynamically stable. Has been ambulating in the hallway. Chest x-ray did show a small right-sided pleural effusion and atelectasis. Objective - Vital Signs Vital signs: Vital Signs Temp 98.0 F 09/29/18 08:00 Pulse 80 09/29/18 11:48 Resp 24 09/29/18 08:00 BP 127/80 09/29/18 08:00 Pulse Ox 92 L 09/29/18 04:00 Intake & Output 09/28/18 09/29/18 09/29/18 17:59 06:59 18:59 Intake Total 480 Output Total Balance 480 Weight Intake: Oral 480 Tube Feeding Output: Urine Other: Voiding Method Bedside Commode Urinal # Voids # Bowel Movements ABP, PAP, CO, CI - Last Documented Arterial Blood Pressure 96/46 Pulmonary Artery Pressure 271/271 Cardiac Output 8.6 Cardiac Index 3.9 - Exam Physical Exam: Revealed a 67-year-old white male, obese in no distress. On room air Head: Atraumatic, normocephalic. HEENT:[Neck is supple.] [No neck masses.] [No thyromegaly.] [No JVD.] Chest: [diminished breath sound bilaterally minimal wheezing on forced expiratory maneuver only. Cardiac Exam: [Normal S1 and S2, no S3 gallop, no murmur.] Abdomen: [Soft, nontender, no megaly, no rebound, no guarding, normal bowel sounds.] Extremities: [No clubbing, no edema, no cyanosis.] Neurological Exam: [No focal neurologic deficit.] Psychiatric: Normal mood affect and mental status examination. - Labs CBC & Chem 7: 09/29/18 06:12 09/29/18 06:12 Labs: Abnormal Lab Results - Last 24 Hours (Table) 09/28/18 09/28/18 09/29/18 Range/Units 16:54 20:38 06:12 WBC 13.4 H (3.8-10.6) k/uL RBC 2.27 L (4.30-5.90) m/uL Hgb 7.0 L (13.0-17.5) gm/dL Hct 21.3 L (39.0-53.0) % RDW 16.3 H (11.5-15.5) % BUN (9-20) mg/dL Glucose (74-99) mg/dL POC Glucose (mg/dL) 261 H 293 H (75-99) mg/dL 09/29/18 09/29/18 09/29/18 Range/Units 06:12 06:43 11:29 WBC (3.8-10.6) k/uL RBC (4.30-5.90) m/uL Hgb (13.0-17.5) gm/dL Hct (39.0-53.0) % RDW (11.5-15.5) % BUN 49 H (9-20) mg/dL Glucose 150 H (74-99) mg/dL POC Glucose (mg/dL) 173 H 147 H (75-99) mg/dL Assessment and Plan Assessment: Impression: 1 bicuspid aortic valve with moderate to severe aortic stenosis, status post aortic valve replacement postoperative day #5 22 vessel coronary artery disease with left main disease, status post CABG postoperative day #5 3 postoperative left lower lobe atelectasis, expected finding after such surgery. resolved 4 suspect some component of COPD exacerbation, improving with the present [facility] hodilators 5 postoperative small right-sided pleural effusion, expected. No need for thoracentesis for 6 multiple comorbidities including mild to moderate COPD, FEV1 is in the range of 64% preoperatively. Morbid obesity, hyperlipidemia, hypertension, Recommendation: Continue updrafts, continue incentive spirometry, ambulate, continue bronchodilators and switched his Solu-Medrol to Medrol Dosepak, added Symbicort, we'll continue to follow. If discharged home today, patient will follow-up with me on outpatient basis. Time with Patient: Less than 30
[2018-09-29] MEDS: methylPREDNISolone 4 MG TAB TAPER PO SCH (13:25)
[2018-09-29] MEDS: CHOLECALCIFEROL 1,000 UNIT TAB PO SCH (13:39)
[2018-09-29] MEDS: ASCORBIC ACID 500 MG TAB PO SCH (13:39)
[2018-09-29] MEDS: FERROUS SULFATE 325 MG TAB PO SCH (13:39)
--- NOTE | 2018-09-29 16:53 | PN ---
PROGRESS NOTE DATE OF SERVICE: September 29, 2018. PRESENTING COMPLAINT: CABG. INTERVAL HISTORY: Patient is status post coronary bypass and aortic valve replacement with a prosthetic valve. Doing better. Sitting up on a chair, eating much improving. Did walk well. Breathing is much improved. Off all drips. REVIEW OF SYSTEMS: Done for constitutional, cardiovascular, GI, pulmonary; relevant findings as above. CURRENT MEDICATIONS: Reviewed. PHYSICAL EXAMINATION: VITAL SIGNS: Temperature 98, pulse 59, respiration 24, blood pressure 127/80, pulse ox 92 percent on 2 L. GENERAL APPEARANCE: Sitting up in a chair, looking better. EYES: Pupils equal. Conjunctivae pale. NECK: JVD unable to assess. Mass not palpable. RESPIRATORY: Effort increased. LUNGS: Diminished breath sounds. CARDIOVASCULAR: Heart sounds muffled. Minimal edema. ABDOMEN: Distended, soft. Liver and spleen not palpable. PSYCHIATRY: Alert and oriented x3. Mood and affect normal. INVESTIGATIONS: White count 13.4, hemoglobin 7, potassium 4.4, BUN 49, creatinine 1.02. ASSESSMENT: 1. Coronary artery bypass with aortic valve replacement with prosthetic valve. 2. Essential hypertension. 3. Hyperlipidemia. 4. Acute postoperative blood loss anemia expected from surgery. 5. Dilutional thrombocytopenia corrected. 6. Morbid obesity BMI 41.1. 7. Hyperkalemia corrected. 8. Acute respiratory failure with ventilator assistance, now on nasal cannula. 9. The patient Accu-Cheks are noted. Sugar was still running on the higher side, 173, 147. We will keep the patient on the current dose of Levemir. the patient is on a Medrol Dosepak hoping that sugars will eventually come down as steroids are tapered off. MMODL / IJN: [id number] /
[2018-09-29 17:08] LABS: Glucose,Whole Blood 160 mg/dL (75-99)
[2018-09-29] MEDS: SYMBICORT 160-4.5 MCG INHALER INHALATION SCH (20:48)
[2018-09-29] MEDS: SENNOSIDES-DOCUSATE SODIUM 1 EACH TAB PO SCH (21:01)
[2018-09-29] MEDS: INSULIN DETEMIR (LEVEMIR) 100 UNIT/ML SYR SQ SCH (21:01)
[2018-09-29 21:02] LABS: Glucose,Whole Blood 157 mg/dL (75-99)
[2018-09-30] MEDS: KETOROLAC 30 MG/ML 1 ML VIAL IVP SCH ×3 (00:30→12:56)
[2018-09-30] MEDS: HEPARIN SODIUM,PORCINE 5,000 UNIT/ML 1 ML VIAL SQ SCH ×2 (00:31→10:19)
--- NOTE | 2018-09-30 06:08 | P.CONS ---
History of Present Illness - Chief Complaint Cardiac debility - History of Present Illness I had the opportunity to see patient for inpatient rehab consultation with regard to cardiac debility. [facility] and's coronary artery disease. Underwent three-vessel coronary bypass and amputation left atrial appendage and AVR. Seen in consultation by Dr. Hyman and cardiology. Chest x-rays followed for right pleural effusion and atelectasis. PT reports supervision for mobility including gait 100 feet, shortness of breath. OT prescribed. Patient reports independent in room including bathroom, without device. Previous functional history as elicited from patient: 67-year-old left-handed white male who is lives and 2 floor home with ex-. does the cooking and laundry. Both are retired. Patient describes independent with driving, standing shower and gait without device. History smoking, quit 5 years ago. Very rare drink. Dr. Don is regular doctor. Family history of cancer in mother. Review of Systems Review of systems: ENT: Denies sneezes or discharge. Eyes: Denies discharge or photophobia. Cardiac: Denies chest pain or palpitation. Mild sternal discomfort Pulmonary: Mild shortness of breath. Gastrointestinal: Denies nausea, emesis, constipation, diarrhea. Genitourinary: Denies discharge or frequency. Musculoskeletal: Denies muscle or bone aches. Neurologic: Mild generalized weakness. Endocrine: Denies shakes or sweats. Oncology: Denies cancers. Dermatologic: Denies rash, itching, pruritus. ALLERGY/immunology: Denies sneezes, rashes. Past Medical History Past Medical History: Hyperlipidemia, Hypertension Additional Past Medical History / Comment(s): Moderate to severe aortic valve stenosis with a peak gradient of 60 mmHg and a mean gradient of 30 mmHg across the aortic valve and moderate aortic valve regurgitation. History of Any Multi-Drug Resistant Organisms: None Reported Past Surgical History: Heart Catheterization, Orthopedic Surgery Additional Past Surgical History / Comment(s): ORIF LEFT ANKLE-Hardware later removed, LACERATION REPAIR OF LEFT FOREARM,RT BREAST I&D,FAISAL,Heartcath x2 Past Anesthesia/Blood Transfusion Reactions: No Reported Reaction Additional Past Anesthesia/Blood Transfusion Reaction / Comm: hx no blood transfusion Smoking Status: Former smoker - Past Family History Mother Family Medical History: Cancer Additional Family Medical History / Comment(s): LUNG CANCER Father Family Medical History: No Reported History Medications and Allergies Home Medications Medication Instructions Recorded Confirmed Type Naproxen Sodium [Aleve] 220 mg PO Q12HR PRN 07/07/14 09/24/18 History Hydrochlorothiazide 12.5 mg PO DAILY 06/16/15 09/24/18 History Lisinopril 10 mg PO QAM 06/16/15 09/24/18 History Rosuvastatin Calcium [Crestor] 20 mg PO DAILY 06/16/15 09/24/18 History Vit C/E/Zn/Coppr/Lutein/Zeaxan 1 cap PO DAILY 06/16/15 09/24/18 History [Preservision Areds 2 Softgel] Aspirin 325 mg PO DAILY 07/29/18 09/24/18 History Nitroglycerin Sl Tabs [Nitrostat] 0.4 mg SUBLINGUAL Q5M PRN #25 tab 08/01/18 09/24/18 Rx Cholecalciferol [Vitamin D3] 2,000 unit PO DAILY 08/12/18 09/24/18 History Mupirocin 2% Oint [Bactroban 2% 1 applic NASAL BID 08/12/18 09/24/18 History Oint] [place]-3/Dha/Epa/Fish Oil [Fish Oil 1 cap PO DAILY 08/12/18 09/24/18 History 500 mg Softgel] Metoprolol Tartrate [Lopressor] 12.5 mg PO BID 09/19/18 09/24/18 History Allergies Allergy/AdvReac Type Severity Reaction Status Date / Time No Known Allergies Allergy Verified 09/24/18 17:23 Physical Exam Vitals: Vital Signs Temp Pulse Resp BP Pulse Ox 09/30/18 02:00 121/67 09/30/18 00:00 98.2 F 76 16 129/72 91 L 09/29/18 22:05 129/72 09/29/18 21:00 88 09/29/18 20:52 88 09/29/18 20:00 98 F 76 15 129/72 92 L 09/29/18 16:00 24 125/68 93 L 09/29/18 15:12 86 09/29/18 15:00 86 09/29/18 14:00 130/70 09/29/18 12:00 98.0 F 22 130/85 92 L 09/29/18 11:48 80 09/29/18 11:39 82 09/29/18 10:00 127/80 09/29/18 08:02 84 09/29/18 08:00 98.0 F 89 24 127/80 09/29/18 07:50 80 Intake and Output 09/29/18 09/29/18 09/30/18 14:59 22:59 06:59 Intake Total 480 340 Output Total 350 200 Balance 130 340 -200 Intake: Oral 480 100 Tube Feeding 240 Output: Urine 350 200 Other: Voiding Method Bedside Commode Toilet Toilet Urinal # Voids 2 # Bowel Movements 1 ABP, PAP, CO, CI - Last 8 Hours Cardiac Output 8.6 Cardiac Output 8.6 Skin: Good color, texture, turgor. General: Stocky/muscular build and comfortable appearance. Head: Normocephalic, atraumatic. Eyes: Symmetric. Pupils equal round. Ears: Symmetric. Hearing within normal limits. Mouth: Clear. Neck: Supple. Carotid without bruit. Cardiac: Regular rate and rhythm. Lungs: Clear anteriorly and posteriorly. Abdomen: Soft active nontender. Extremities: Normal tone. Neurological: Mental status: Alert, cooperative, pleasant. Cranial nerves: Symmetric facial tone and trapezius. Motor: Normal strength and isolation all 4 limbs. Sensation: Intact throughout. DTRs: Symmetric and equal throughout. Mobility: Patient reports independent in room including bathroom. Results CBC & Chem 7: 09/29/18 06:12 09/29/18 06:12 Labs: Abnormal Lab Results - Last 24 Hours (Table) 09/29/18 09/29/18 09/29/18 Range/Units 06:12 06:12 06:43 WBC 13.4 H (3.8-10.6) k/uL RBC 2.27 L (4.30-5.90) m/uL Hgb 7.0 L (13.0-17.5) gm/dL Hct 21.3 L (39.0-53.0) % RDW 16.3 H (11.5-15.5) % BUN 49 H (9-20) mg/dL Glucose 150 H (74-99) mg/dL POC Glucose (mg/dL) 173 H (75-99) mg/dL 03/10/19 03/10/19 03/10/19 Range/Units 11:29 16:57 20:50 WBC (3.8-10.6) k/uL RBC (4.30-5.90) m/uL Hgb (13.0-17.5) gm/dL Hct (39.0-53.0) % RDW (11.5-15.5) % BUN (9-20) mg/dL Glucose (74-99) mg/dL POC Glucose (mg/dL) 147 H 160 H 157 H (75-99) mg/dL Assessment and Plan (1) Status post aortic valve replacement Current Visit: Yes Status: Acute Code(s): Z95.2 - PRESENCE OF PROSTHETIC HEART VALVE SNOMED Code(s): 6504845432649 (2) Status post aorto-coronary artery bypass graft Current Visit: Yes Status: Acute Code(s): Z95.1 - PRESENCE OF AORTOCORONARY BYPASS GRAFT SNOMED Code(s): 971636557 Plan: Impression: 1. Cardiac debility. 2. Coronary artery disease status post three-vessel bypass. 3. Aortic stenosis status post AVR. 4. Hypertension. 5. Dyslipidemia. Comments and plan: PT ongoing and OT prescribed. At this time anticipate yareli hayden will do well. He is in fact hopeful for return home with support services.
[2018-09-30 06:26] VITALS: BP 111/55
[2018-09-30] MEDS: INSULIN ASPART (NovoLOG) 100 UNIT/ML VIAL SQ SCH ×3 (07:05→12:08)
[2018-09-30] MEDS: PANTOPRAZOLE 40 MG TABLET PO SCH (07:08)
[2018-09-30 07:13] LABS: Glucose,Whole Blood 96 mg/dL (75-99)
--- NOTE | 2018-09-30 08:05 | XR ---
EXAMINATION TYPE: XR chest 1V portable DATE OF EXAM: 09/30/2018 HISTORY: Shortness of breath. COMPARISON: 09/29/2018 TECHNIQUE: Single view of the chest is submitted. FINDINGS: Demonstrated are scattered senescent parenchymal change. There is persistent right basilar atelectasis. The heart is stable. Sternotomy wires in place. Hilar and mediastinal structures are within normal limits. Degenerative changes are seen of the dorsal spine. IMPRESSION: 1. Stable right basilar atelectasis and/or small effusion. Postoperative changes.
[2018-09-30 08:18] LABS: Anisocytosis Slight; HCT 21.9 % (39.0-53.0); HGB 7.2 gm/dL (13.0-17.5); Hypochromasia Slight; MCH 30.9 pg (25.0-35.0); MCHC 32.8 g/dL (31.0-37.0); MCV 94.2 fL (80.0-100.0); Mean Platelet Volume 6.7; Platelet Count 357 k/uL (150-450); Poikilocytosis Slight; RBC 2.33 m/uL (4.30-5.90); RDW 16.7 % (11.5-15.5); WBC 16.4 k/uL (3.8-10.6)
[2018-09-30] MEDS: SYMBICORT 160-4.5 MCG INHALER INHALATION SCH (08:26)
[2018-09-30] MEDS: IPRATROPIUM-ALBUTEROL 3 ML NEB INHALATION SCH ×3 (08:26→15:46)
[2018-09-30 09:32] LABS: Anion Gap 8 mmol/L; Blood Urea Nitrogen 43 mg/dL (9-20); Calcium 8.7 mg/dL (8.4-10.2); Carbon Dioxide 28 mmol/L (22-30); Chloride 105 mmol/L (98-107); Glucose 93 mg/dL (74-99); Potassium 3.8 mmol/L (3.5-5.1); Sodium 141 mmol/L (137-145)
[2018-09-30] MEDS: CLOPIDOGREL 75 MG TAB PO SCH (10:19)
[2018-09-30] MEDS: ASPIRIN 81 MG PO SCH (10:19)
[2018-09-30] MEDS: METOPROLOL TARTRATE 25 MG TAB PO SCH (10:19)
[2018-09-30] MEDS: ATORVASTATIN 40 MG TAB PO SCH (10:19)
[2018-09-30] MEDS: methylPREDNISolone 4 MG TAB TAPER PO SCH (10:20)
[2018-09-30] MEDS ORDERED: FUROSEMIDE 10 MG/ML 4 ML VIAL IV STA (11:07)
--- NOTE | 2018-09-30 11:13 | P.PN ---
Subjective Progress Note Date: 09/30/18 Principal diagnosis: Status post aortic valve replacement and CABG, postoperative day 6 This is a 67-year-old white male with history of severe aortic stenosis, and significant coronary artery disease, recent cardiac catheterization showed total occlusion of LAD, 50-60% left main disease, 70% of the obtuse marginal branch. Patient underwent elective coronary artery bypass surgery with SNELL to LAD, saphenous vein graft to diagonal and saphenous vein graft to obtuse marginal branch. Aortic valve was replaced using a 27 mm pericardial bioprosthesis magna ease. Postoperatively, patient was on mechanical ventilation, and I was asked to see him on consultation. I reviewed his ventilator settings last night, and these were adjusted accordingly. Patient was significantly agitated last night, and could not be weaned because he required significant propofol infusion. This morning the patient is being aroused, we have switched his propofol to Precedex, and we plan to give the patient a weaning trial today. Patient was on IMV rate of 16, PEEP at 10 which I cut down to 5, and FiO2 was 40%. ABG this morning showed a pO2 of 101 pCO2 of 40 pH of 7.42. Chest x-ray showed mostly left lower lobe atelectasis. Patient remains on mechanical ventilation this morning, and he is sedated, in the process of being switched from propofol to Precedex to facilitate weaning process in the next couple of hours. Patient was reevaluated today on 09/26/2018, he was extubated yesterday uneventfully. No major issues overnight, he had slight agitation, otherwise the patient has been doing well. Today no cough no wheezing no shortness of breath, patient is sitting in a bedside chair, and relatively asymptomatic. Still doing poorly with incentive spirometry, but he is working on it. Chest x-ray this morning showed cardiomegaly, and mild pulmonary vascular congestion. Left lung base seems to be aerating better today. His hemoglobin this morning is 6, and the patient would like to be transfused by cardiac surgery. Basic metabolic profile is normal, renal profile is normal. Patient is hemodynamically stable, not requiring any pressors or any inotropes Reevaluated today on 09/27/2018, patient is sitting at a bedside chair, in no distress, however he was noted to have some wheezing on examination. Solu- Medrol was added. A remains on updrafts in the form of DuoNeb 4 times a day and when necessary. He is compliant with his incentive spirometry, achieving about 750 ML. O2 saturation is 93% on 3 L nasal cannula, patient is hemodynamically stable, not requiring any pressors or inotropes. Hemoglobin today was noted to be 7.1. Electrolytes were noted to be normal. Chest x-ray showed small or trace pleural effusion, and basilar atelectasis, expected Reevaluated today on 09/28/2018, patient remains in the ICU, doing quite well, relatively asymptomatic, he remains on 4 L via nasal cannula. And saturating well.denies any pain or shortness of breath, he is wheezing much less today, and breathing a lot easier since the steroids were added yesterday. He is actually doing better with incentive spirometry. O2 saturation is 94% on 4 L. Hemoglobin is low, but no plans to transfuse the patient as. Surgery on the case. Hemoglobin is actually 6.6 today.chest x-ray is showing improvement in his atelectasis but he continues to have minimal atelectasis bibasilar Reevaluated today on 09/29/2018, patient is in the ICU, and seems to be doing well except for occasional cough and wheezing. He is maximized on bronchodilators, he is also on steroids, today I have recommended that we give him Solu-Medrol, and since he is being considered for discharge, I will go ahead and switch him to a Medrol Dosepak. I have also recommended other bronchodilators including Symbicort, albuterol and Atrovent updrafts 4 times a day. Overall the patient is doing fairly well, hemoglobin this morning is 7. Patient is in sinus rhythm, and he is hemodynamically stable. Has been ambulating in the hallway. Chest x-ray did show a small right-sided pleural effusion and atelectasis. On 09/30/2018 patient seen in follow-up in the intensive care unit, he is awake and alert, he is in no acute distress, he is on room air, with pulse ox of 93%, no IV drips, no maintenance IVs, postop day 6, status post three-vessel bypass grafting and aortic valve replacement with bioprosthetic valve, lung sounds reveal minimal end expiratory wheeze in the posterior right lower lobe, no rhonchi, no cough, no chest congestion. Patient's IV steroids have been transitioned to oral prednisone, his vitals are stable, he is in sinus mechanism with a controlled rate. His chest x-ray has been reviewed by Dr. Alcantar and showed stable right basilar atelectasis and/or small effusion. Patient has been ambulating, he is been working on his incentive spirometer. Didn't is being discharged home today, he was evaluated by rehab therapist services, and is decided that he does not need rehab placement, and he can just go home with home care. Objective - Vital Signs Vital signs: Vital Signs Temp 98 F 09/30/18 04:00 Pulse 80 09/30/18 08:38 Resp 14 09/30/18 04:00 BP 111/55 09/30/18 06:00 Pulse Ox 93 L 09/30/18 04:00 Intake & Output 09/29/18 09/30/18 09/30/18 18:59 06:59 18:59 Intake Total 480 340 Output Total 350 200 Balance 130 140 Intake: Oral 480 100 Tube Feeding 240 Output: Urine 350 200 Other: Voiding Method Bedside Commode Toilet Urinal # Voids 2 # Bowel Movements 1 ABP, PAP, CO, CI - Last Documented Arterial Blood Pressure 96/46 Pulmonary Artery Pressure 271/271 Cardiac Output 8.6 Cardiac Index 3.9 - Exam GENERAL EXAM: Alert, pleasant, 67-year-old white male, on room air comfortable in no apparent distress. HEAD: Normocephalic/atraumatic. EYES: Normal reaction of pupils, equal size. Conjunctiva pink, sclera white. NOSE: Clear with pink turbinates. THROAT: No erythema or exudates. NECK: No masses, no JVD, no thyroid enlargement, no adenopathy. CHEST: No chest wall deformity. Symmetrical expansion. midsternal incision is clean dry and intact, will approximately, chest tube sites are clean dry and intact LUNGS: Equal air entry with no crackles, wheeze, rhonchi or dullness. End expiratory wheeze in the right lower lobe posteriorly, no other rhonchi, rales or wheezes CVS: Regular rate and rhythm, normal S1 and S2, no gallops, no murmurs, no rubs ABDOMEN: Soft, nontender. No hepatosplenomegaly, normal bowel sounds, no guarding or rigidity. EXTREMITIES: No clubbing, no edema, no cyanosis, 2+ pulses and upper and lower extremities. MUSCULOSKELETAL: Muscle strength and tone normal. SPINE: No scoliosis or deformity SKIN: No rashes CENTRAL NERVOUS SYSTEM: Alert and oriented -3. No focal deficits, tone is normal in all 4 extremities. PSYCHIATRIC: Alert and oriented -3. Appropriate affect. Intact judgment and insight. - Labs CBC & Chem 7: 09/30/18 08:11 09/30/18 08:11 Labs: Abnormal Lab Results - Last 24 Hours (Table) 09/29/18 09/29/18 09/29/18 Range/Units 11:29 16:57 20:50 WBC (3.8-10.6) k/uL RBC (4.30-5.90) m/uL Hgb (13.0-17.5) gm/dL Hct (39.0-53.0) % RDW (11.5-15.5) % BUN (9-20) mg/dL POC Glucose (mg/dL) 147 H 160 H 157 H (75-99) mg/dL 09/30/18 09/30/18 Range/Units 08:11 08:11 WBC 16.4 H (3.8-10.6) k/uL RBC 2.33 L (4.30-5.90) m/uL Hgb 7.2 L (13.0-17.5) gm/dL Hct 21.9 L (39.0-53.0) % RDW 16.7 H (11.5-15.5) % BUN 43 H (9-20) mg/dL POC Glucose (mg/dL) (75-99) mg/dL Assessment and Plan Plan: 1 bicuspid aortic valve with moderate to severe aortic stenosis, status post aortic valve replacement postoperative day #6 22 vessel coronary artery disease with left main disease, status post CABG post operative day #6 3 postoperative left lower lobe atelectasis, expected finding after such surgery. resolved 4 suspect some component of COPD exacerbation, improving with the present bronchodilators 5 postoperative small right-sided pleural effusion, expected. No need for thoracentesis for 6 multiple comorbidities including mild to moderate COPD, FEV1 is in the range of 64% preoperatively. Morbid obesity, hyperlipidemia, hypertension, Plan: Patient is stable for discharge home from pulmonary perspective, he is on room air, tolerating ambulation, does not need home oxygen, patient will be sent home on the DuoNeb nebulized broncho-dilators 4 times daily, Symbicort, and Medrol Dosepak, patient will need follow-up with Dr. Holland on an outpatient basis in 7-10 days I performed a history & physical examination of the patient and discussed their management with my nurse practitioner, Laney Guevara. I reviewed the nurse practitioner's note and agree with the documented findings and plan of care. Lung sounds are positive for minimal wheezing. The findings and the impression was discussed with the patient. I attest to the documentation by the nurse practitioner. Time with Patient: Less than 30
[2018-09-30 12:00] LABS: Glucose,Whole Blood 94 mg/dL (75-99)
[2018-09-30] MEDS ORDERED: POTASSIUM CHLORIDE ER 20 MEQ TAB.ER PO SCH (12:00)
[2018-09-30] MEDS: FERROUS SULFATE 325 MG TAB PO SCH (12:57)
[2018-09-30] MEDS: CHOLECALCIFEROL 1,000 UNIT TAB PO SCH (12:57)
[2018-09-30] MEDS: ASCORBIC ACID 500 MG TAB PO SCH (12:57)
[2018-09-30] MEDS ORDERED: metFORMIN 500 MG TAB PO SCH (14:00)
--- NOTE | 2018-09-30 14:28 | P.PN ---
Progress Note - Text Progress Note Date: 09/30/18 This is 67-year-old gentleman with history of coronary artery disease and also severe aortic stenosis, had bypass surgery and aortic valve replacement. Patient is feeling better. He today is getting stronger. Patient has been on steroids which were switched to by mouth steroids. Patient does not have any wheezing or rhonchi. Patient is maintaining sinus rhythm. Chest x-ray some showed a right basilar ectatic ectasis and small effusion. Patient is tolerating activity well. Patient may be discharged home today. Follow-up with me in one week in the office. Lab values showed white count of 16.4. His hemoglobin is 7.2. His elect lites are within normal limits. His creatinine is 0.9 on. Vital signs showed blood pressure 111/55. Pulse is 73. His respiratory rate is about 20. Patient is afebrile. GENERAL EXAM: Patient is alert and oriented and doesn't appear to be in any acute distress HEENT: Normocephalic. Normal reaction of pupils, equal size, normal range of extraocular motion. No erythema or exudates in the throat. NECK: No masses, no nuchal rigidity. CHEST: No chest wall deformity. LUNGS: Show diminished breath sounds bilaterally at bases HEART: S1 and S2 normal with no audible mumurs or gallops. Regular rhythm, femorals equal on both sides.. ABDOMEN: No hepatosplenomegaly, normal bowel sounds, no guarding or rigidity. SKIN: No rashes CENTRAL NERVOUS SYSTEM: No focal deficits. EXTREMITIES: No cyanosis, clubbing or edema. Impression #1. Status post bypass surgery #2. Status post mitral valve replacement #3. Postoperative anemia. #4. Elevated white count related to steroids. Plan: Continue current medical therapy. Possibly could be discharged home. Follow-up in the office in one to 2 weeks
--- NOTE | 2018-09-30 15:03 | P.DS ---
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 Bicuspid aortic valve with moderate to severe aortic stenosis, status post aortic valve replacement with a 27 mm Magna Ease pericardial bioprosthesis 2. Double vessel coronary artery disease with left main disease, totally occlu ded left anterior descending artery, status post triple coronary artery bypass grafting with SNELL to the LAD, SVG to diag 1, SVG to OM1 3. Preserved left ventricular systolic function 4. Hypertension 5. Hyperlipidemia 6. Morbid obesity 7. Previous tobacco dependence 8. Mild COPD with preoperative FEV1 64% of predicted 9. Postoperative acute blood loss anemia, an expected outcome of surgery given cardiopulmonary bypass and hemodilution. PRINCIPAL PROCEDURE: 1. Triple-vessel coronary artery bypass grafting using the left internal mammary artery to left anterior descending coronary artery, a reverse greater saphenous vein graft from the aorta to the first diagonal coronary artery, a reverse greater saphenous vein graft from the aorta to the first obtuse marginal cor onary artery. 2. Aortic valve replacement using a #27 mm pericardial bioprosthesis Magna ease. 3. Exclusion of the left atrial appendage using a 40 mm Atriclip. 4. Endoscopic vein harvesting of the right greater saphenous vein from groin to above the ankle level. 5. Intraoperative transesophageal echocardiogram, epi-aortic scanning and intraoperative graft flow measurements using the N4MD system. HISTORY OF PRESENT ILLNESS: This is 67-year-old gentleman who is followed by Dr. Don on an outpatient basis. His past medical history significant for known aortic stenosis, hypertension, hyperlipidemia, chronic obstructive pulmonary disease, morbid obesity and remote history of tobacco abuse which he quit 4 years ago. The patient has known aortic valve stenosis and has been following w nay Leach from cardiology associates on an outpatient basis. Recently, the patient has had complaints of progressive shortness of breath with exertion. Subsequently on 06/11/2018 the patient underwent an elective transesophageal echocardiogram which showed a calcified bicuspid aortic valve, and aortic valve area measuring 1.26 cm, moderate aortic valve regurgitation, a peak gradient across his aortic valve of 60 mmHg with a mean gradient of 30 mmHg, mild mitral valve regurgitation and a left ventricular systolic function to be preserved. For further evaluation the patient also underwent a coronary artery angiogram which demonstrated a questionable lesion to his left main coronary artery and a 70-80% stenosis to his obtuse marginal coronary artery. Subsequently due to the patient's recent symptoms of shortness of breath, is known aortic valve stenosis and his cardiac catheterization findings he was referred to Dr. Mag Enriquez from cardiothoracic surgery for evaluation and treatment recommendations. Dr. Enriquez reviewed the patient's FAISAL results and cardiac catheterization results with the patient and his and he recommended an elective myocardial revascularization and aortic valve replacement surgery. The risks and benefits an STS risk scores were discussed with the patient by Dr. Enriquez and the patient wished to proceed with elective myocardial revasculariz ation surgery and aortic valve replacement. HOSPITAL COURSE: The patient was admitted to the hospital and after obtaining consent and was taken to the operating room where Dr. Mag Enriquez performed an elective triple-vessel coronary artery bypass grafting using the left internal mammary artery to left anterior descending coronary artery, a reverse greater saphenous vein graft from the aorta to the first diagonal coronary artery, a reverse greater saphenous vein graft from the aorta to the first obtuse marginal coronary artery, an aortic valve replacement using a 27 mm pericardial bioprosthesis Magna ease, exclusion of the left atrial appendage using a 40 mm Atriclip, endoscopic vein harvesting of the right greater saphenous vein from the groin to above the ankle level, intraoperative transesophageal echocardiogram, epi-aortic scanning and intraoperative graft flow measurements using the N4MD system. Upon completion of the surgery the patient was transferred to the cardiovascular intensive care unit where he was recovered, monitored hemodynamically and where he progressed to cardiac rehabilitation phase 1. Subsequently, he was extubated in less than 24 hours, all lines, tubes and supportive drips were discontinued when appropriate and transfer orders were placed to 3 S cardiac stepdown unit for further monitoring and rehabilitation. Due to lack of bed availability on the cardiac stepdown unit, the patient remained in the intensive care unit until discharge. His oxygen was titrated down, he continued to work with physical, occupational and cardiac rehab, he was tolerating an oral diet, his pain was well controlled and he was ready to be discharged home with [facility] health care on postoperative day #6. He has received written and verbal instructions regarding his medications, activity restrictions, signs and symptoms requiring physician notification and his follow-up appointments. COMPLICATIONS: There were no postoperative complications. CONSULTATIONS: 1. Dr. Leach for cardiology management. 2. Dr. Sexton for medical management. 3. Dr. Holland for pulmonary and ventilator management. 4. Dr. Lagos for rehab management. DISCHARGE INSTRUCTIONS: 1. No driving for 4 weeks, or until physician gives their ok. 2. The patient should sleep in their own bed, no medical bed needed. 3. Stairs are not an issue. If the bedroom is upstairs, it is advised that the patient go up at night and down in the morning for the first week. Go slowly, using handrail and take 1 step at a time. 4. SUZIE hose are to be worn for 30 days or until physician discontinues. 5. Heart hugger is to be worn 100% of the time until physician discontinues.(except when showering) 6. No lifting, pushing, or pulling more than 10 pounds for 12 weeks. The physician will advise of any restriction changes. 7. The patient is expected to continue the prescribed walking program. 8. Continue pain control per as needed orders. 9. Continue with incentive spirometry and splinting/heart hugger until otherwise directed by the physician. 10. Must shower daily using liquid antibacterial soap and a separate white washcloth for each individual incision. 11. Routine sternal incision care, no ointments, lotions or powders on the incisions. 12. Please notify surgeon/nurse practitioner for temperature greater than 101F or purulent drainage from incisions 13. Prescriptions for first 30 days given per cardiac surgery service. After 30 days, all prescription refills obtained through cardiology/primary care [facility] SERVICES TO PROVIDE: RN SKILLED HOME CARE SERVICES FOR POST-OP SURGICAL PATIENTS WITH THE FOLLOWING: Coronary Artery Bypass Surgery (CABG), Mitral Valve Replace ment/Repair ( MVR), Aortic Valve Replacement/Repair (AVR) RN TO CONTINUE EDUCATION FROM ``ROAD TO A HEALTH HEART PATIENT EDUCATION MANUAL" (GIVEN TO PATIENT IN THE HOSPITAL) MEDICATION RECONCILIATION WITH EDUCATION NEEDED ON FIRST HOME VISIT EMPHASIZE IMPORTANCE OF WEARING BREAST SUPPORT/HEART HUGGER ENCOURAGE USE OF INCENTIVE SPIROMETER 10 X EVERY HOUR WHILE AWAKE ENCOURAGE UTILIZATION OF LOWER EXTREMITY COMPRESSION STOCKINGS/SUZIE HOSE and ELEVATE LEGS ABOVE LEVEL OF HEART WHILE AT REST. ENCOURAGE AMBULATION 3-5x/day INCREASING TOLERATES, WHILE AVOID EXTREMES IN TEMPERATURE FREQUENCY: RN TO OPEN THE PATIENT WITHIN 24 HOURS OF DISCHARGE FROM THE HOSPITAL WITH TELEHEALTH INSTALLED AT [facility] [place], RN TO VISIT 2-3 X A WEEK FOR 4 WEEKS ESTABLISHED BY PATIENT NEEDS. REMOVAL OF SUTURES: NURSING SERVICES TO REMOVE SUTURES TWO WEEKS POST SURGICAL DATE. If any questions regarding suture removal please call the office at [phone]. LABORATORY: CBC, CMP TO BE DRAWN ON THE THIRD DAY HOME,, 10/03/2018 (RAN STAT) FAX RESULTS TO [phone]. TELEHEALTH PARAMETERS: WEIGHT: NOTIFY MD OF WEIGHT GAIN OF 2 LBS IN 24 HOURS OR 5 LBS IN ONE WEEK HR: NOTIFY MD OF HR <55 BPM OR HR>100 BPM BP: NOTIFY MD IF BP <90/55 OR BP>140/100 O2 SAT: NOTIFY MD IF PO2<93% ON ROOM AIR SEND TELEHEALTH REPORT TO BATH STEWARD/STEWARDESS AND CARDIOVASCULAR SURGEON THE FIRST WEEK OF CARE AND THEN BI-WEEKLY. PLEASE ADDITIONALLY COMMUNICATE ANY ABNORMALS AND NEW FINDINGS TO THE SURGEONS OFFICE. Plan - Discharge Summary Discharge Rx Participant: Yes New Discharge Prescriptions: New Ipratropium-Albuterol Nebulize [Duoneb 0.5 mg-3 mg/3 ml Soln] 3 ml INHALATION QID 30 Days #5 box methylPREDNISolone Dose Pack [Medrol Dose Pack] 4 mg PO DIRECTED #21 package Budesonide-Formot 160-4.5 Mcg [Symbicort 160-4.5 Mcg Inhaler] 2 puff INHALATION BID 30 Days #1 inhaler Ferrous Sulfate [Iron (65 MG Elemental)] 325 mg PO W/LUNCH #30 tab Furosemide [Lasix] 40 mg PO DAILY #7 tab Atorvastatin [Lipitor] 40 mg PO DAILY #30 tab Metoprolol Tartrate [Lopressor] 50 mg PO BID #120 tab Clopidogrel [Plavix] 75 mg PO DAILY #30 tab Pantoprazole [Protonix] 40 mg PO AC-BRKFST #30 tablet.dr Pablo-Docusate Sodium [Senokot-S] 2 each PO HS #14 tab Acetaminophen Tab [Tylenol] 650 mg PO Q6HR PRN tab PRN Reason: Pain Scale 6 To 10 Ascorbic Acid [Vitamin C] 500 mg PO DAILY@1200 tab Continue Naproxen Sodium [Aleve] 220 mg PO Q12HR PRN PRN Reason: Pain Aspirin 325 mg PO DAILY Cholecalciferol [Vitamin D3] 2,000 unit PO DAILY Discontinued Rosuvastatin Calcium [Crestor] 20 mg PO DAILY Lisinopril 10 mg PO QAM Hydrochlorothiazide 12.5 mg PO DAILY Vit C/E/Zn/Coppr/Lutein/Zeaxan [Preservision Areds 2 Softgel] 1 cap PO DAILY Nitroglycerin Sl Tabs [Nitrostat] 0.4 mg SUBLINGUAL Q5M PRN #25 tab PRN Reason: Chest Pain [place]-3/Dha/Epa/Fish Oil [Fish Oil 500 mg Softgel] 1 cap PO DAILY Mupirocin 2% Oint [Bactroban 2% Oint] 1 applic NASAL BID Metoprolol Tartrate [Lopressor] 12.5 mg PO BID Discharge Medication List Naproxen Sodium [Aleve] 220 mg PO Q12HR PRN 07/07/14 [History] Aspirin 325 mg PO DAILY 07/29/18 [History] Cholecalciferol [Vitamin D3] 2,000 unit PO DAILY 08/12/18 [History] Acetaminophen Tab [Tylenol] 650 mg PO Q6HR PRN tab 09/30/18 [Rx] Ascorbic Acid [Vitamin C] 500 mg PO DAILY@1200 tab 09/30/18 [Rx] Atorvastatin [Lipitor] 40 mg PO DAILY #30 tab 09/30/18 [Rx] Budesonide-Formot 160-4.5 Mcg [Symbicort 160-4.5 Mcg Inhaler] 2 puff INHALATION BID 30 Days #1 inhaler 09/30/18 [Rx] Clopidogrel [Plavix] 75 mg PO DAILY #30 tab 09/30/18 [Rx] Ferrous Sulfate [Iron (65 MG Elemental)] 325 mg PO W/LUNCH #30 tab 09/30/18 [Rx] Furosemide [Lasix] 40 mg PO DAILY #7 tab 09/30/18 [Rx] Ipratropium-Albuterol Nebulize [Duoneb 0.5 mg-3 mg/3 ml Soln] 3 ml INHALATION QID 30 Days #5 box 09/30/18 [Rx] Metoprolol Tartrate [Lopressor] 50 mg PO BID #120 tab 09/30/18 [Rx] Pantoprazole [Protonix] 40 mg PO AC-BRKFST #30 tablet. 09/30/18 [Rx] Sennosides-Docusate Sodium [Senokot-S] 2 each PO HS #14 tab 09/30/18 [Rx] methylPREDNISolone Dose Pack [Medrol Dose Pack] 4 mg PO DIRECTED #21 package 09/30/18 [Rx] Follow up Appointment(s)/Referral(s): Margaret Holland MD [STAFF PHYSICIAN] - 10/08/18 3:15 pm Mariel Salcido NPC [Nurse Practitioner] - 10/04/18 1:30 pm Mag Enriquez MD [STAFF PHYSICIAN] - 11/01/18 10:00 am Elvis Don MD [Primary Care Provider] - 10/08/18 10:00 am Cj Leach MD [STAFF PHYSICIAN] - 10/14/18 3:30 pm [facility] Visiting Nurse, [NON-STAFF] - 1-2 Days Discharge Disposition: HOME WITH HOME HEALTH SERVICES
[2018-09-30 16:46] VITALS: PULSE 89; RESP 18; TEMP 97
[2018-09-30] MEDS ORDERED: METOPROLOL TARTRATE 50 MG TAB PO SCH (21:00)
[2018-10-01] MEDS ORDERED: FUROSEMIDE 40 MG TAB PO SCH (09:00)
== END 2018-09-30 18:11 | disposition home health service (06) | DRG 220 ==
LOC: 2ORMAIN 05:34 → 2SICU 16:38
PROVIDERS: ADMIT Surgery; ATTEND Surgery
PROC: 5A1221Z Performance of Cardiac Output, Continuous (ICD-10-PCS; 2018-09-24)
PROC: 02L70CK Occlusion of Left Atrial Appendage with Extraluminal Device, Open Approach (ICD-10-PCS; 2018-09-24)
PROC: B24BZZ4 Ultrasonography of Heart with Aorta, Transesophageal (ICD-10-PCS; 2018-09-24)
PROC: 02100Z9 Bypass Coronary Artery, One Artery from Left Internal Mammary, Open Approach (ICD-10-PCS; principal; 2018-09-24 08:00)
PROC: 02RF08Z Replacement of Aortic Valve with Zooplastic Tissue, Open Approach (ICD-10-PCS; 2018-09-24 08:00)
PROC: 021109W Bypass Coronary Artery, Two Arteries from Aorta with Autologous Venous Tissue, Open Approach (ICD-10-PCS; 2018-09-24 08:00)
PROC: 06BP4ZZ Excision of Right Saphenous Vein, Percutaneous Endoscopic Approach (ICD-10-PCS; 2018-09-24 08:00)
DX: I25.10 Atherosclerotic heart disease of native coronary artery without angina pectoris (principal); D62 Acute posthemorrhagic anemia; I50.32 Chronic diastolic (congestive) heart failure; J98.11 Atelectasis; Z68.41 Body mass index [BMI] 40.0-44.9, adult; I35.0 Nonrheumatic aortic (valve) stenosis; D69.59 Other secondary thrombocytopenia; I25.82 Chronic total occlusion of coronary artery; I11.0 Hypertensive heart disease with heart failure; E66.01 Morbid (severe) obesity due to excess calories; E87.5 Hyperkalemia; J44.9 Chronic obstructive pulmonary disease, unspecified; D72.829 Elevated white blood cell count, unspecified; E78.5 Hyperlipidemia, unspecified; R73.9 Hyperglycemia, unspecified; T38.0X5A Adverse effect of glucocorticoids and synthetic analogues, initial encounter; R32 Unspecified urinary incontinence; Z79.82 Long term (current) use of aspirin; Z79.899 Other long term (current) drug therapy; Z87.891 Personal history of nicotine dependence; Z80.1 Family history of malignant neoplasm of trachea, bronchus and lung
CPT/HCPCS: 71045; 71046; 80048; 80053; 82330; 82805; 83735; 84100; 85025; 85027; 85384; 85520; 85610; 85730; 86850; 86891; 86900; 86901; 86920; 88305; 88311; 94002; 94003; 94640

== ENCOUNTER → 2018-10-04 | Outpatient (CLI) | payer MEDICARE ==
[2018-10-04 14:50] LABS: Anisocytosis Slight; Basophils % (A) 0 %; Eosinophils # (A) 0.1 k/uL (0-0.7); Eosinophils % (A) 1 %; Hypochromasia Moderate; Lymphocytes # (A) 0.9 k/uL (1.0-4.8); Lymphocytes % (A) 4 %; MCHC 30.8 g/dL (31.0-37.0); MCV 94.1 fL (80.0-100.0); Mean Platelet Volume 6.4; Monocytes # (A) 0.9 k/uL (0-1.0); Monocytes % (A) 4 %; Neutrophils # (A) 19.9 k/uL (1.3-7.7); Neutrophils % (A) 91 %; Platelet Count 557 k/uL (150-450); Poikilocytosis Slight; RBC 2.76 m/uL (4.30-5.90); RDW 16.8 % (11.5-15.5); WBC 21.9 k/uL (3.8-10.6)
[2018-10-04 18:26] LABS: Albumin 3.8 g/dL (3.80-4.90); Albumin/Globulin Ratio 2.11 (1.60-3.17); Anion Gap 12.5 mmol/L (4.00-12.00); Calcium 8.4 mg/dL (8.7-10.3); Carbon Dioxide 26.5 mmol/L (21.6-31.8); Globulin 1.8 g/dL (1.6-3.3); Potassium 3.9 mmol/L (3.5-5.5); Total Protein 5.6 g/dL (6.2-8.2)
== END | disposition home or self-care (01) ==
LOC: LABWHC1 14:07
PROVIDERS: ATTEND Nurse Practitioner Family
DX: Z95.1 Presence of aortocoronary bypass graft (principal)
CPT/HCPCS: 36415; 80053; 85025

== ENCOUNTER 2018-10-08 11:07 | Inpatient (IN) | payer MEDICARE ==
[2018-10-08] MEDS ORDERED: IPRATROPIUM-ALBUTEROL 3 ML NEB INHALATION STA (11:41)
[2018-10-08] MEDS ORDERED: methylPREDNISolone SOD SUCCI 125 MG/2 ML VIAL IV STA (11:41)
--- NOTE | 2018-10-08 11:52 | ED ---
General Adult HPI - General Stated complaint: PINA Time Seen by Provider: 10/08/18 11:10 Source: RN notes reviewed - History of Present Illness Initial comments: This a 67-year-old male who had open heart surgery with valve replacement and triple bypass about 12 days ago. Patient states went to his doctor's office because he's been having some difficulty breathing. Patient states she's also been having his heart was racing. Patient denies any fever or any consistent cough. Patient denies any new chest pain but he still has the soreness. Patient denies abdominal pain patient nausea vomiting diarrhea. Patient denies any lightheadedness dizziness or near syncopal episode. Patient states he has swelling to the bilateral legs but he hasn't noticed a big increase in swelling. - Related Data Home Medications Medication Instructions Recorded Confirmed Aspirin 325 mg PO DAILY 07/29/18 10/08/18 Cholecalciferol [Vitamin D3] 2,000 unit PO DAILY 08/12/18 10/08/18 Acetaminophen Tab [Tylenol] 650 mg PO Q6HR PRN 10/08/18 10/08/18 Metoprolol Tartrate [Lopressor] 25 mg PO BID 10/08/18 10/08/18 Previous Rx's Medication Instructions Recorded Atorvastatin [Lipitor] 40 mg PO DAILY #30 tab 09/30/18 Clopidogrel [Plavix] 75 mg PO DAILY #30 tab 09/30/18 Furosemide [Lasix] 40 mg PO DAILY #7 tab 09/30/18 metFORMIN HCL [Glucophage] 500 mg PO BID-W/MEALS #60 tab 09/30/18 Allergies Allergy/AdvReac Type Severity Reaction Status Date / Time No Known Allergies Allergy Verified 10/08/18 11:37 Review of Systems ROS Statement: Those systems with pertinent positive or pertinent negative responses have been documented in the HPI. ROS Other: All systems not noted in ROS Statement are negative. Past Medical History Past Medical History: Hyperlipidemia, Hypertension Additional Past Medical History / Comment(s): Moderate to severe aortic valve stenosis with a peak gradient of 60 mmHg and a mean gradient of 30 mmHg across the aortic valve and moderate aortic valve regurgitation. Morbid obesity with a BMI of 43.4 kg/m History of Any Multi-Drug Resistant Organisms: None Reported Past Surgical History: Orthopedic Surgery Additional Past Surgical History / Comment(s): ORIF LEFT ANKLE, LACERATION REPAI R OF LEFT FOREARM,RT BREAST I&D Past Anesthesia/Blood Transfusion Reactions: No Reported Reaction Additional Past Anesthesia/Blood Transfusion Reaction / Comment(s): hx no blood transfusion Smoking Status: Former smoker - Past Family History Mother Family Medical History: Cancer Additional Family Medical History / Comment(s): LUNG CANCER Father Family Medical History: No Reported History General Exam - General Exam Comments Initial Comments: GENERAL: Patient is well-developed and well-nourished. Patient is nontoxic and well- hydrated and is in mild distress. ENT: Neck is soft and supple. No significant lymphadenopathy is noted. Oropharynx is clear. Moist mucous membranes. Neck has full range of motion without eliciting any pain. EYES: The sclera were anicteric and conjunctiva were pink and moist. Extraocular movements were intact and pupils were equal round and reactive to light. Eyelids were unremarkable. 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 ABDOMEN: Soft and nontender with normal bowel sounds. No palpable organomegaly was noted. There is no palpable pulsatile mass. SKIN: Skin is clear with no lesions or rashes and otherwise unremarkable. NEUROLOGIC: Patient is alert and oriented x3. Cranial nerves II through XII are grossly intact. Motor and sensory are also intact. Normal speech, volume and content. Symmetrical smile. MUSCULOSKELETAL: Normal extremities with adequate strength and full range of motion. Patient is 2+ edema laterally LYMPHATICS: No significant lymphadenopathy is noted PSYCHIATRIC: Normal psychiatric evaluation. Course Vital Signs 10/08/18 10/08/18 10/08/18 11:54 12:03 12:04 Temperature 99.7 F H Pulse Rate 150 H 151 H 152 H Respiratory 26 H Rate Blood Pressure 97/76 O2 Sat by Pulse 94 L Oximetry 10/08/18 10/08/18 10/08/18 12:11 12:57 13:23 Temperature Pulse Rate 152 H 152 H 147 H Respiratory 18 22 18 Rate Blood Pressure 104/89 120/89 146/80 O2 Sat by Pulse 98 96 96 Oximetry Medical Decision Making - Medical Decision Making EKG shows a wide complex tachycardia possibly flutter at 150 beats a minute QRS is 142 QT interval 374 QTC is 590. Patient's EKG shows a right bundle branch block. This is a solid patient had cardiothoracic surgery called Manuel Carlos responded and came down and saw the patient. Manuel wanted us to put the patient on amiodarone and put him on amiodarone drip. I started that in the emergency department. Chest x-ray shows slight effusion on the left. Patient remains tachycardic after 150 of amiodarone and amiodarone drip. Cardiovascular surgery recommended another bolus of 150 of amiodarone. I spoke with Dr. Sexton I admitted the patient and I consult the cardiothoracic surgery. - Lab Data Result diagrams: 10/08/18 12:07 10/08/18 12:07 Lab Results 10/08/18 10/08/18 10/08/18 Range/Units 12:07 12:07 12:07 WBC 10.4 (3.8-10.6) k/uL RBC 2.90 L (4.30-5.90) m/uL Hgb 7.9 L (13.0-17.5) gm/dL Hct 26.4 L (39.0-53.0) % MCV 91.1 (80.0-100.0) fL MCH 27.1 (25.0-35.0) pg MCHC 29.8 L (31.0-37.0) g/dL RDW 16.3 H (11.5-15.5) % Plt Count 572 H (150-450) k/uL Neutrophils % 84 % Lymphocytes % 9 % Monocytes % 5 % Eosinophils % 0 % Basophils % 0 % Neutrophils # 8.7 H (1.3-7.7) k/uL Lymphocytes # 1.0 (1.0-4.8) k/uL Monocytes # 0.5 (0-1.0) k/uL Eosinophils # 0.0 (0-0.7) k/uL Basophils # 0.0 (0-0.2) k/uL Hypochromasia Marked Poikilocytosis Moderate Anisocytosis Slight PT (9.0-12.0) sec INR (<1.2) APTT (22.0-30.0) sec Sodium (137-145) mmol/L Potassium (3.5-5.1) mmol/L Chloride (98-107) mmol/L Carbon Dioxide (22-30) mmol/L Anion Gap mmol/L BUN (9-20) mg/dL Creatinine (0.66-1.25) mg/dL Est GFR (CKD-EPI)AfAm (>60 ml/min/1.73 sqM) Est GFR (CKD-EPI)NonAf (>60 ml/min/1.73 sqM) Glucose (74-99) mg/dL Calcium (8.4-10.2) mg/dL Magnesium (1.6-2.3) mg/dL Total Bilirubin (0.2-1.3) mg/dL AST (17-59) U/L ALT (21-72) U/L Alkaline Phosphatase (38-126) U/L Troponin I 0.148 H* (0.000-0.034) ng/mL NT-Pro-B Natriuret Pep 3020 pg/mL Total Protein (6.3-8.2) g/dL Albumin (3.5-5.0) g/dL 10/08/18 10/08/18 Range/Units 12:07 12:07 WBC (3.8-10.6) k/uL RBC (4.30-5.90) m/uL Hgb (13.0-17.5) gm/dL Hct (39.0-53.0) % MCV (80.0-100.0) fL MCH (25.0-35.0) pg MCHC (31.0-37.0) g/dL RDW (11.5-15.5) % Plt Count (150-450) k/uL Neutrophils % % Lymphocytes % % Monocytes % % Eosinophils % % Basophils % % Neutrophils # (1.3-7.7) k/uL Lymphocytes # (1.0-4.8) k/uL Monocytes # (0-1.0) k/uL Eosinophils # (0-0.7) k/uL Basophils # (0-0.2) k/uL Hypochromasia Poikilocytosis Anisocytosis PT 12.7 H (9.0-12.0) sec INR 1.2 H (<1.2) APTT 23.3 (22.0-30.0) sec Sodium 136 L (137-145) mmol/L Potassium 4.3 (3.5-5.1) mmol/L Chloride 99 (98-107) mmol/L Carbon Dioxide 27 (22-30) mmol/L Anion Gap 10 mmol/L BUN 29 H (9-20) mg/dL Creatinine 0.94 (0.66-1.25) mg/dL Est GFR (CKD-EPI)AfAm >90 (>60 ml/min/1.73 sqM) Est GFR (CKD-EPI)NonAf 85 (>60 ml/min/1.73 sqM) Glucose 126 H (74-99) mg/dL Calcium 8.4 (8.4-10.2) mg/dL Magnesium 2.3 (1.6-2.3) mg/dL Total Bilirubin 1.6 H (0.2-1.3) mg/dL AST 747 H (17-59) U/L ALT 624 H (21-72) U/L Alkaline Phosphatase 258 H (38-126) U/L Troponin I (0.000-0.034) ng/mL NT-Pro-B Natriuret Pep pg/mL Total Protein 5.9 L (6.3-8.2) g/dL Albumin 3.3 L (3.5-5.0) g/dL Critical Care Time Critical Care Time: Yes Total Critical Care Time: 35 Disposition Clinical Impression: Dyspnea, Atrial flutter with rapid ventricular response, Elevated liver enzymes Disposition: ADMITTED IP TO THIS HOSP Referrals: Elvis Don MD [Primary Care Provider] - 1-2 days Time of Disposition: 14:38
[2018-10-08] MEDS ORDERED: DEXTROSE 5% IN WATER 250 ML with AMIODARONE 300 MG IV ONE (12:26)
[2018-10-08] MEDS ORDERED: DEXTROSE 5% IN WATER 100 ML with AMIODARONE 150 MG IV ONE (12:26)
[2018-10-08 12:32] LABS: Anisocytosis Slight; Basophils % (A) 0 %; Eosinophils % (A) 0 %; HCT 26.4 % (39.0-53.0); HGB 7.9 gm/dL (13.0-17.5); Hypochromasia Marked; Lymphocytes % (A) 9 %; MCH 27.1 pg (25.0-35.0); MCHC 29.8 g/dL (31.0-37.0); MCV 91.1 fL (80.0-100.0); Mean Platelet Volume 6.7; Monocytes # (A) 0.5 k/uL (0-1.0); Monocytes % (A) 5 %; Neutrophils # (A) 8.7 k/uL (1.3-7.7); Neutrophils % (A) 84 %; Platelet Count 572 k/uL (150-450); Poikilocytosis Moderate; RDW 16.3 % (11.5-15.5); WBC 10.4 k/uL (3.8-10.6)
[2018-10-08] MEDS ORDERED: AMIODARONE 360 MG in DEXTROSE 5% IN WATER 200 ML IV ONE ×2 (12:33)
[2018-10-08 12:35] LABS: ALT 624 U/L (21-72); AST 747 U/L (17-59); Albumin 3.3 g/dL (3.5-5.0); Alkaline Phosphatase 258 U/L (38-126); Anion Gap 10 mmol/L; Blood Urea Nitrogen 29 mg/dL (9-20); Calcium 8.4 mg/dL (8.4-10.2); Carbon Dioxide 27 mmol/L (22-30); Chloride 99 mmol/L (98-107); Glucose 126 mg/dL (74-99); Magnesium 2.3 mg/dL (1.6-2.3); Potassium 4.3 mmol/L (3.5-5.1); Sodium 136 mmol/L (137-145); Total Bilirubin 1.6 mg/dL (0.2-1.3); Total Protein 5.9 g/dL (6.3-8.2)
[2018-10-08 12:36] LABS: INR 1.2 (<1.2); Partial Thromboplastin Time 23.3 sec (22.0-30.0); Prothrombin Time 12.7 sec (9.0-12.0)
--- NOTE | 2018-10-08 13:48 | XR ---
EXAMINATION TYPE: XR chest 2V DATE OF EXAM: 10/08/2018 COMPARISON: 09/30/2018 HISTORY: Shortness of breath, wheezing, tachycardia and recent coronary artery bypass graft TECHNIQUE: Frontal and lateral views of the chest are obtained. FINDINGS: Cardia mediastinal silhouette is enlarged and there are low lung volumes. Post CABG change s are seen of the chest. There is haziness along the left hemidiaphragm in the retrocardiac airspace with no focal opacity on the lateral view and atelectasis is suspected. No pulmonary vascular congest ion. Lung apices are obscured by the patient's chin. Horizontally oriented right basilar atelectasis is also seen. IMPRESSION: Minimal bibasilar subsegmental atelectasis, cardiomegaly and postsurgical change of the chest. No pulmonary vascular congestion.
[2018-10-08] MEDS ORDERED: DEXTROSE 5% IN WATER 100 ML with AMIODARONE 150 MG IV PRN ×3 (14:15→16:15)
[2018-10-08] MEDS ORDERED: NITROGLYCERIN SL TABS 0.4 MG TAB SUBLINGUAL PRN (14:48)
[2018-10-08] MEDS ORDERED: FUROSEMIDE 10 MG/ML 4 ML VIAL IV STA (15:07)
--- NOTE | 2018-10-08 16:09 | P.GSCN ---
History of Present Illness Consult date: 10/08/18 Reason for Consult: Recent triple vessel coronary artery bypass grafting surgery and aortic valve replacement. Requesting physician: Calixto Tavares History of present illness: This is a 67-year-old gentleman who is followed by Dr. Don on an outpatient basis. He is a past medical history significant for a recent triple-vessel coronary artery bypass grafting surgery with placement of his left internal mammary artery to his left anterior descending coronary artery, a reverse greater saphenous vein graft from the aorta to the first diagonal coronary artery, a reverse greater saphenous vein graft from the aorta to the first obtuse marginal coronary artery, and an elective aortic valve replacement using a #27 mm pericardial bioprosthesis magna ease performed on 09/24/2018. He also has a past medical history significant for hypertension, hyperlipidemia, morbid obesity, previous tobacco dependence, COPD with preoperative FEV1 of 64% of predicted value and history of postoperative acute blood loss anemia which was an expected outcome of surgery given cardiopulmonary bypass and hemodilution. For the past couple of days the patient has had some complaints of progressive shortness of breath and inability to lie flat. He denies any complaints of pain, cough, fever, chills, near syncope or syncope. He presented to his primary care physician's office this morning as scheduled and was found to have a heart rate in the 150s. He was subsequently transferred to [facility] emergency department via EMS from his primary care physician's office. In the emergency department a 12-lead EKG was completed which showed a wide QRS tachycardia with a right bundle branch block and a heart rate of 150 BPM. His initial lab work demonstrated a WBC count 10.4, Hgb 7.9, HCT 26.4, BUN 29, CR 0.94, total bilirubin 1.6, AST 747, ALT 624, and BNP of 3020. Subsequently due to the patient's recent history of open heart surgery and his presenting symptoms a consult was placed to Dr. Austin Jain for further workup and evaluation. Review of Systems A 14 point review of systems was completed and was negative except as mentioned in HPI. Past Medical History Past Medical History: Coronary Artery Disease (CAD), COPD, Hyperlipidemia, Hypertension Additional Past Medical History / Comment(s): Bicuspid aortic valve with moderate to severe aortic valve stenosis with a peak gradient of 60 mmHg and a mean gradient of 30 mmHg across the aortic valve and moderate aortic valve regurgitation. Morbid obesity with a BMI of 42.9 kg/m History of Any Multi-Drug Resistant Organisms: None Reported Past Surgical History: Cardiac Valve Replacement, Coronary Bypass/CABG, Heart Catheterization, Orthopedic Surgery Additional Past Surgical History / Comment(s): ORIF LEFT ANKLE, LACERATION REPAIR OF LEFT FOREARM,RT BREAST I&D, on 09/24/2018 patient underwent a triple- vessel coronary artery bypass grafting using the left internal mammary artery to left anterior setting coronary artery, a reverse greater saphenous vein graft from the aorta to the first diagonal coronary artery, a reverse greater saphenous vein graft from the aorta to the first obtuse marginal coronary artery, and aortic valve replacement using a #27 mm pericardial bioprosthesis magna ease and exclusion of his left atrial appendage using a 40 mm Atriclip. Past Anesthesia/Blood Transfusion Reactions: No Reported Reaction Additional Past Anesthesia/Blood Transfusion Reaction / Comm: hx no blood transfusion Past Psychological History: No Psychological Hx Reported Smoking Status: Former smoker Past Drug Use History: None Reported - Past Family History Mother Family Medical History: Cancer Additional Family Medical History / Comment(s): LUNG CANCER Father Family Medical History: No Reported History Medications and Allergies Home Medications Medication Instructions Recorded Confirmed Type Aspirin 325 mg PO DAILY 07/29/18 10/08/18 History Cholecalciferol [Vitamin D3] 2,000 unit PO DAILY 08/12/18 10/08/18 History Atorvastatin [Lipitor] 40 mg PO DAILY #30 tab 09/30/18 10/08/18 Rx Clopidogrel [Plavix] 75 mg PO DAILY #30 tab 09/30/18 10/08/18 Rx Furosemide [Lasix] 40 mg PO DAILY #7 tab 09/30/18 10/08/18 Rx metFORMIN HCL [Glucophage] 500 mg PO BID-W/MEALS #60 tab 09/30/18 10/08/18 Rx Acetaminophen Tab [Tylenol] 650 mg PO Q6HR PRN 10/08/18 10/08/18 History Metoprolol Tartrate [Lopressor] 25 mg PO BID 10/08/18 10/08/18 History Allergies Allergy/AdvReac Type Severity Reaction Status Date / Time No Known Allergies Allergy Verified 10/08/18 11:37 Surgical - Exam Vital Signs Pulse 150 H 10/08/18 11:54 - General well developed, well nourished, no distress, no pain, obese - Eyes PERRL, normal ocular movement - ENT normal pinna, normal nares, normal mucosa, no hearing loss, no congestion - Neck Neck is supple, no lymphadenopathy. no masses, no bruits, trachea midline, no venous distension - Respiratory Lung sounds with coarse expiratory wheezes throughout, diminished to his bilateral bases left greater than right. Oxygen saturations are 93% on room air. Respirations are symmetrical and nonlabored. - Cardiovascular Regular rhythm with a tachycardic rate. S1 and S2 present, negative for S3, gallop or murmur. +2 edema to his bilateral lower extremities. Knee-high SUZIE hose to his bilateral lower extremities. - Abdomen Abdomen is soft, nontender and nondistended. Hypoactive bowel sounds all 4 abdominal quadrants. No guarding or rigidity. No organomegaly. - Genitourinary Deferred - Rectum Deferred - Integumentary Midline sternal incision is clean, dry and approximated. No drainage or redness is present. Right lower extremity EVH site clean, dry and approximated. No drainage or redness is present. Some scattered ecchymosis to his right lower extremity which is soft and nontender to palpate. no rash, no growths - Neurologic normal coordination, normal sensation - Musculoskeletal Generalized weakness. normal gait, normal posture - Psychiatric oriented to time, oriented to person, oriented to place, speech is normal, memory intact Results - Labs 10/08/18 12:07 10/08/18 12:07 Abnormal Lab Results - Last 24 Hours (Table) 10/08/18 10/08/18 10/08/18 Range/Units 12:07 12:07 12:07 RBC 2.90 L (4.30-5.90) m/uL Hgb 7.9 L (13.0-17.5) gm/dL Hct 26.4 L (39.0-53.0) % MCHC 29.8 L (31.0-37.0) g/dL RDW 16.3 H (11.5-15.5) % Plt Count 572 H (150-450) k/uL Neutrophils # 8.7 H (1.3-7.7) k/uL PT (9.0-12.0) sec INR (<1.2) Sodium 136 L (137-145) mmol/L BUN 29 H (9-20) mg/dL Glucose 126 H (74-99) mg/dL Total Bilirubin 1.6 H (0.2-1.3) mg/dL AST 747 H (17-59) U/L ALT 624 H (21-72) U/L Alkaline Phosphatase 258 H (38-126) U/L Troponin I 0.148 H* (0.000-0.034) ng/mL Total Protein 5.9 L (6.3-8.2) g/dL Albumin 3.3 L (3.5-5.0) g/dL 10/08/18 Range/Units 12:07 RBC (4.30-5.90) m/uL Hgb (13.0-17.5) gm/dL Hct (39.0-53.0) % MCHC (31.0-37.0) g/dL RDW (11.5-15.5) % Plt Count (150-450) k/uL Neutrophils # (1.3-7.7) k/uL PT 12.7 H (9.0-12.0) sec INR 1.2 H (<1.2) Sodium (137-145) mmol/L BUN (9-20) mg/dL Glucose (74-99) mg/dL Total Bilirubin (0.2-1.3) mg/dL AST (17-59) U/L ALT (21-72) U/L Alkaline Phosphatase (38-126) U/L Troponin I (0.000-0.034) ng/mL Total Protein (6.3-8.2) g/dL Albumin (3.5-5.0) g/dL Diabetes panel 10/08/18 Range/Units 12:07 Sodium 136 L (137-145) mmol/L Potassium 4.3 (3.5-5.1) mmol/L Chloride 99 (98-107) mmol/L Carbon Dioxide 27 (22-30) mmol/L BUN 29 H (9-20) mg/dL Creatinine 0.94 (0.66-1.25) mg/dL Glucose 126 H (74-99) mg/dL Calcium 8.4 (8.4-10.2) mg/dL AST 747 H (17-59) U/L ALT 624 H (21-72) U/L Alkaline Phosphatase 258 H (38-126) U/L Total Protein 5.9 L (6.3-8.2) g/dL Albumin 3.3 L (3.5-5.0) g/dL Calcium panel 10/08/18 Range/Units 12:07 Calcium 8.4 (8.4-10.2) mg/dL Albumin 3.3 L (3.5-5.0) g/dL Pituitary panel 10/08/18 Range/Units 12:07 Sodium 136 L (137-145) mmol/L Potassium 4.3 (3.5-5.1) mmol/L Chloride 99 (98-107) mmol/L Carbon Dioxide 27 (22-30) mmol/L BUN 29 H (9-20) mg/dL Creatinine 0.94 (0.66-1.25) mg/dL Glucose 126 H (74-99) mg/dL Calcium 8.4 (8.4-10.2) mg/dL Adrenal panel 10/08/18 Range/Units 12:07 Sodium 136 L (137-145) mmol/L Potassium 4.3 (3.5-5.1) mmol/L Chloride 99 (98-107) mmol/L Carbon Dioxide 27 (22-30) mmol/L BUN 29 H (9-20) mg/dL Creatinine 0.94 (0.66-1.25) mg/dL Glucose 126 H (74-99) mg/dL Calcium 8.4 (8.4-10.2) mg/dL Total Bilirubin 1.6 H (0.2-1.3) mg/dL AST 747 H (17-59) U/L ALT 624 H (21-72) U/L Alkaline Phosphatase 258 H (38-126) U/L Total Protein 5.9 L (6.3-8.2) g/dL Albumin 3.3 L (3.5-5.0) g/dL - Imaging Chest x-ray: report reviewed, image reviewed EKG: report reviewed Assessment and Plan (1) Atrial flutter with rapid ventricular response Current Visit: Yes Status: Acute Code(s): I48.92 - UNSPECIFIED ATRIAL FLUTTER SNOMED Code(s): 8387739 (2) Shortness of breath on exertion Current Visit: Yes Status: Acute Code(s): R06.02 - SHORTNESS OF BREATH SNOMED Code(s): 10577317 (3) Status post aortic valve replacement Current Visit: No Status: Acute Code(s): Z95.2 - PRESENCE OF PROSTHETIC HEART VALVE SNOMED Code(s): 4673135040379 (4) Status post aorto-coronary artery bypass graft Current Visit: No Status: Acute Code(s): Z95.1 - PRESENCE OF AORTOCORONARY BYPASS GRAFT SNOMED Code(s): 960244175 (5) Acute blood loss as cause of postoperative anemia Current Visit: Yes Status: Acute Code(s): D62 - ACUTE POSTHEMORRHAGIC ANEMIA SNOMED Code(s): 25609502344943368 (6) Aortic valve stenosis Current Visit: No Status: Chronic Code(s): I35.0 - NONRHEUMATIC AORTIC (VALVE) STENOSIS SNOMED Code(s): 02566961 (7) Coronary artery disease Current Visit: No Status: Chronic Code(s): I25.10 - ATHSCL HEART DISEASE OF [place] CORONARY ARTERY W/O ANG PCTRS SNOMED Code(s): 07287266 (8) Hyperlipidemia Current Visit: No Status: Chronic Code(s): E78.5 - HYPERLIPIDEMIA, UNSPECIFIED SNOMED Code(s): 16996189 (9) COPD (chronic obstructive pulmonary disease) Current Visit: No Status: Chronic Code(s): J44.9 - CHRONIC OBSTRUCTIVE PUL MONARY DISEASE, UNSPECIFIED SNOMED Code(s): 70961237 (10) Hypertension Current Visit: No Status: Chronic Code(s): I10 - ESSENTIAL (PRIMARY) HYPERTENSION SNOMED Code(s): 16468673 (11) Elevated brain natriuretic peptide (BNP) level Current Visit: Yes Status: Acute Code(s): R79.89 - OTHER SPECIFIED ABNORMAL FINDINGS OF BLOOD CHEMISTRY SNOMED Code(s): 657442599 (12) Elevated AST (SGOT) Current Visit: Yes Status: Acute Code(s): R74.0 - NONSPEC ELEV OF LEVELS OF TRANSAMNS & LACTIC ACID DEHYDRGNSE SNOMED Code(s): 425551354 (13) Elevated ALT measurement Current Visit: Yes Status: Acute Code(s): R74.0 - NONSPEC ELEV OF LEVELS OF TRANSAMNS & LACTIC ACID DEHYDRGNSE SNOMED Code(s): 255868399 (14) Morbid obesity Current Visit: No Status: Chronic Code(s): E66.01 - MORBID (SEVERE) OBESITY DUE TO EXCESS CALORIES SNOMED Code(s): 907339552 (15) Tobacco dependence in remission Current Visit: No Status: Resolved Code(s): F17.201 - NICOTINE DEPENDENCE, UNSPECIFIED, IN REMISSION SNOMED Code(s): 808876950 Plan: The patient was seen and examined. His chart and diagnostics were reviewed. His case was discussed with Dr. Austin Jain from cardiothoracic surgery. We will order a 2-D echocardiogram to assess his LV function and rule out pericardial effusion. An ultrasound of his liver and a hepatic function panel has been ordered to assess his elevated AST and ALT. Amiodarone drip has been initiated per protocol for atrial fibrillation and atrial flutter prophylaxis. Lasix 40 mg IV times 1 now. Postoperative discharge instructions have been reinforced with the patient, reminding him to use his heart hugger and using his incentive spirometry every hour while awake. The patient will be admitted to the observation unit. Medical management per primary care service. Dr. Cesar has been consulted for pulmonary management. Continue to optimize medical management, continue aspirin, statin, Plavix and beta misbah. GI prophylaxis with Protonix and DVT prophylaxis with subcu heparin and SCDs ordered. We will monitor his chest x-ray and labs daily. Thank you Dr. Tavares for this consult and we will look forward to following the patient throughout his hospital course. Time with Patient: Greater than 30
[2018-10-08] MEDS: metFORMIN 500 MG TAB PO SCH (18:11)
[2018-10-08] MEDS: HEPARIN SODIUM,PORCINE 5,000 UNIT/ML 1 ML VIAL SQ SCH ×2 (18:11→23:37)
[2018-10-08] MEDS: AMIODARONE 300 MG in DEXTROSE 5% IN WATER 250 ML IV SCH ×2 (19:30)
--- NOTE | 2018-10-08 19:32 | P.CNPUL ---
History of Present Illness Consult date: 10/08/18 Reason for consult: dyspnea History of present illness: This is a 67-year-old gentleman who is followed by Dr. Don on an outpatient basis. He is a past medical history significant for a recent triple-vessel coronary artery bypass grafting surgery with placement of his left internal mammary artery to his left anterior descending coronary artery, a reverse greater saphenous vein graft from the aorta to the first diagonal coronary artery, a reverse greater saphenous vein graft from the aorta to the first obtuse marginal coronary artery, and an elective aortic valve replacement using a #27 mm pericardial bioprosthesis magna ease performed on 09/24/2018. He also has a past medical history significant for hypertension, hyperlipidemia, morbid obesity, previous tobacco dependence, COPD with preoperative FEV1 of 64% of predicted with the patient's course was essentially uncomplicated. The patient was discharged home. The patient presented his primary care physician's office with increased shortness of breath and the patient was found to have tachycardia with a heart rate in the 150, irregular. He was sent into the hospital and the patient was found to be in significant tachycardia with a heart rate of 150. This seems to be an atrial tachycardia. The rhythm is very regular at this point in time. May be sinus or supraventricular.. His EKG showed a wide- complex QRS and a bundle-branch block pattern. The patient was started on amiodarone. Blood work was normal. There was some minimal troponin leak. BNP level was 3020. AST and ALT were also elevated at 747 and 624 respectively. The patient is currently on amiodarone drip. Chest x-ray showing cardiomegaly and small left-sided pleural effusion. He is afebrile. He is currently on 5 L of oxygen by nasal cannula and his pulse ox is around 98%. He was already given Lasix 40 mg IV push 1. Cardiology is on consult. Echocardiogram is pending for now. Review of Systems Constitutional: Reports daytime sleepiness, Reports fatigue, Reports poor appetite, Reports weakness, Reports weight gain Eyes: denies as per HPI, denies blurred vision, denies bulging eye, denies decreased vision, denies diplopia, denies discharge, denies dry eye, denies irritation, denies itching, denies pain, denies photophobia, denies loss of peripheral vision, denies loss of vision, denies tunnel vision/blind spots Ears: deny: decreased hearing, ear discharge, earache, tinnitus Ears, nose, mouth and throat: Denies headache, Denies sore throat Breasts: absent: as per HPI, gynecomastia Cardiovascular: Reports decreased exercise tolerance, Reports dyspnea on exertion, Reports leg edema, Reports palpitations, Reports rapid heart beat, Reports shortness of breath Respiratory: Reports dyspnea Gastrointestinal: Denies abdominal pain, Denies diarrhea, Denies nausea, Denies vomiting Genitourinary: Reports as per HPI Musculoskeletal: Denies myalgias Musculoskeletal: bilateral: ankle swelling, absent: ankle pain, ankle stiffness Neurological: Reports weakness Psychiatric: Reports as per HPI Endocrine: Reports fatigue Hematologic/Lymphatic: Reports as per HPI Allergic/Immunologic: Reports as per HPI Past Medical History Past Medical History: Coronary Artery Disease (CAD), COPD, Hyperlipidemia, Hypertension Additional Past Medical History / Comment(s): Coronary artery disease and previous history of Bicuspid aortic valve with moderate to severe aortic valve stenosis with a peak gradient of 60 mmHg and a mean gradient of 30 mmHg across the aortic valve and moderate aortic valve regurgitation. The patient underwent coronary artery bypass surgery and aortic valve replacement with a prosthetic valve, Morbid obesity with a BMI of 42.9 kg/m, COPD, hyperlipidemia, hypertension, diabetes mellitus History of Any Multi-Drug Resistant Organisms: None Reported Past Surgical History: Cardiac Valve Replacement, Coronary Bypass/CABG, Heart Catheterization, Orthopedic Surgery Additional Past Surgical History / Comment(s): ORIF LEFT ANKLE, LACERATION REPAIR OF LEFT FOREARM,RT BREAST I&D, on 09/24/2018 patient underwent a triple- vessel coronary artery bypass grafting using the left internal mammary artery to left anterior setting coronary artery, a reverse greater saphenous vein graft from the aorta to the first diagonal coronary artery, a reverse greater saphenous vein graft from the aorta to the first obtuse marginal coronary artery, and aortic valve replacement using a #27 mm pericardial bioprosthesis magna ease and exclusion of his left atrial appendage using a 40 mm Atriclip. Past Anesthesia/Blood Transfusion Reactions: No Reported Reaction Additional Past Anesthesia/Blood Transfusion Reaction / Comment(s): hx no blood transfusion Smoking Status: Former smoker - Past Family History Mother Family Medical History: Cancer Additional Family Medical History / Comment(s): LUNG CANCER Father Family Medical History: No Reported History Medications and Allergies Home Medications Medication Instructions Recorded Confirmed Type Aspirin 325 mg PO DAILY 07/29/18 10/08/18 History Cholecalciferol [Vitamin D3] 2,000 unit PO DAILY 08/12/18 10/08/18 History Atorvastatin [Lipitor] 40 mg PO DAILY #30 tab 09/30/18 10/08/18 Rx Clopidogrel [Plavix] 75 mg PO DAILY #30 tab 09/30/18 10/08/18 Rx Furosemide [Lasix] 40 mg PO DAILY #7 tab 09/30/18 10/08/18 Rx metFORMIN HCL [Glucophage] 500 mg PO BID-W/MEALS #60 tab 09/30/18 10/08/18 Rx Acetaminophen Tab [Tylenol] 650 mg PO Q6HR PRN 10/08/18 10/08/18 History Metoprolol Tartrate [Lopressor] 25 mg PO BID 10/08/18 10/08/18 History Allergies Allergy/AdvReac Type Severity Reaction Status Date / Time No Known Allergies Allergy Verified 10/08/18 11:37 Physical Exam Vitals: Vital Signs Temp Pulse Pulse Resp BP BP Pulse Ox 10/08/18 17:35 97.9 F 63 22 123/74 98 10/08/18 16:46 95 10/08/18 16:44 83 16 128/98 83 L 10/08/18 13:23 147 H 18 146/80 96 10/08/18 12:57 152 H 22 120/89 96 10/08/18 12:11 152 H 18 104/89 98 10/08/18 12:04 152 H 10/08/18 12:03 99.7 F H 151 H 26 H 97/76 94 L 10/08/18 11:54 150 H Intake and Output 10/08/18 10/08/18 10/08/18 06:59 14:59 22:59 Output Total 350 Balance -350 Output: Urine 350 Other: Weight 127.913 kg General well developed, well nourished, no distress, no pain, obese - Eyes PERRL, normal ocular movement - ENT normal pinna, normal nares, normal mucosa, no hearing loss, no congestion - Neck Neck is supple, no lymphadenopathy. no masses, no bruits, trachea midline, no venous distension - Respiratory Lung sounds with coarse expiratory wheezes throughout, diminished to his bilateral bases left greater than right. Oxygen saturations are 93% on 5 L of oxygen by nasal cannula. Respirations are symmetrical and nonlabored. - Cardiovascular Regular rhythm with a tachycardic rate. S1 and S2 present, negative for S3, gallop or murmur. +2 edema to his bilateral lower extremities. Knee-high SUZEI hose to his bilateral lower extremities. - Abdomen Abdomen is soft, nontender and nondistended. Hypoactive bowel sounds all 4 abdominal quadrants. No guarding or rigidity. No organomegaly. - Genitourinary Deferred - Rectum Deferred - Integumentary Midline sternal incision is clean, dry and approximated. No drainage or redness is present. Right lower extremity EVH site clean, dry and approximated. No drainage or redness is present. Some scattered ecchymosis to his right lower extremity which is soft and nontender to palpate. no rash, no growths - Neurologic normal coordination, normal sensation - Musculoskeletal Generalized weakness. normal gait, normal posture - Psychiatric oriented to time, oriented to person, oriented to place, speech is normal, memory intact Results - Laboratory Findings CBC and BMP: 10/08/18 12:07 10/08/18 12:07 PT/INR, D-dimer PT 12.7 sec (9.0-12.0) H 10/08/18 12:07 INR 1.2 (<1.2) H 10/08/18 12:07 Abnormal lab findings: Abnormal Labs 10/08/18 10/08/18 10/08/18 12:07 12:07 12:07 RBC 2.90 L Hgb 7.9 L Hct 26.4 L MCHC 29.8 L RDW 16.3 H Plt Count 572 H Neutrophils # 8.7 H PT INR Sodium 136 L BUN 29 H Glucose 126 H Total Bilirubin 1.6 H AST 747 H ALT 624 H Alkaline Phosphatase 258 H Troponin I 0.148 H* Total Protein 5.9 L Albumin 3.3 L 10/08/18 12:07 RBC Hgb Hct MCHC RDW Plt Count Neutrophils # PT 12.7 H INR 1.2 H Sodium BUN Glucose Total Bilirubin AST ALT Alkaline Phosphatase Troponin I Total Protein Albumin - Diagnostic Findings Chest x-ray: image reviewed Assessment and Plan Plan: Assessment 1 acute dyspnea/acute hypoxic history failure currently under investigation. Consider atrial tachycardia with secondary decompensated heart failure c ontributing to this patient shortness of breath 2 acute tachycardia, likely supraventricular/atrial tachycardia versus atrial flutter. Currently on amiodarone for rate control 3 decompensated heart failure secondary to above. The patient has also developed increased lower extremity edema and there is some mild elevation of the proBNP level. 4 troponin leak secondary to above 5 morbid obesity 6 COPD with a baseline FEV1 of 64% of predicted 7 coronary artery disease presents bypass surgery 8 bicuspid aortic valve causing significant/severe aortic stenosis and the patient is status post bioprosthetic aortic valve replacement/aVR along with resection of the atrial appendage. 9 left-sided pleural effusion, post thoracotomy versus reactive to CHF 10 normal LFTs 11 hyperlipidemia 12 hypertension 13 diabetes mellitus 14 normocytic anemia, multifactorial, Plan The patient has already converted into a normal sinus rhythm with a controlled rate. Continue IV Lasix. Keep oxygen and wean down the FiO2 to tolerate a saturation above 90%. Monitor lower extremity edema. Doubt any formal lung infection or bronchitis. Doubt pneumonia. Doubt pulmonary embolism. Echocardiogram in a.m. Complete the amiodarone loading and switch this patient oral amiodarone. Ultrasound of the gallbladder. We'll continue to follow.
[2018-10-08 20:53] LABS: Glucose,Whole Blood 221 mg/dL (75-99)
[2018-10-08] MEDS ORDERED: METOPROLOL TARTRATE 50 MG TAB PO SCH (21:00)
[2018-10-08] MEDS ORDERED: METOPROLOL TARTRATE 25 MG TAB PO SCH (21:00)
[2018-10-09 01:17] LABS: Albumin 3.1 g/dL (3.5-5.0); Bilirubin, Delta 0.6 mg/dL (0.0-0.2); Bilirubin,Unconjugated 0.8 mg/dL (0.0-1.1); Total Bilirubin 1.4 mg/dL (0.2-1.3); Total Protein 5.8 g/dL (6.3-8.2)
[2018-10-09] MEDS: AMIODARONE 300 MG in DEXTROSE 5% IN WATER 250 ML IV SCH ×2 (05:43)
[2018-10-09 06:16] LABS: Glucose,Whole Blood 194 mg/dL (75-99)
--- NOTE | 2018-10-09 06:54 | XR ---
EXAMINATION TYPE: XR chest 2V DATE OF EXAM: 10/09/2018 COMPARISON: Chest x-ray from yesterday and older studies. HISTORY: Post open cardiac surgery. TECHNIQUE: Frontal and lateral views of the chest are obtained. FINDINGS: Overlying sternal wires and mediastinal clips as well as metallic cardiac valve and closure device are all redemonstrated. There is persistent cardiomegaly with small bilateral pleural effusio ns. There is left greater than right bibasilar opacities redemonstrated. Upper lungs are clear withou t pneumothorax. Overlying EKG leads are noted. Osseous structures are intact. IMPRESSION: Overall stable findings from most recent study, cardiomegaly with small bilateral pleura l effusions and left greater than right bibasilar atelectasis and/or infiltrate are all redemonstrate d.
[2018-10-09] MEDS: HEPARIN SODIUM,PORCINE 5,000 UNIT/ML 1 ML VIAL SQ SCH ×2 (06:56→17:38)
--- NOTE | 2018-10-09 08:26 | US ---
EXAMINATION TYPE: US abdomen limited DATE OF EXAM: 10/09/2018 COMPARISON: NONE CLINICAL HISTORY: Elevated AST and ALT.. open heart surgery 2 weeks ago, SOB, on O2, has to sit uprig ht or patient cannot breathe, elevated AST, ALT EXAM MEASUREMENTS: Liver Length: 21.1 cm Gallbladder Wall: 0.5 cm CBD: 0.8 cm Right Kidney: 12.2 x 4.9 x 5.4 cm very limited exam due to patient inability to breathe and patient sat upright the whole exam Pancreas: not seen due to bowel gas Liver: limited imaging, enlarged Gallbladder: patient states NPO, appears contracted with thickened wall Evidence for sonographic Taylor's sign: no CBD: slightly dilated Right Kidney: limited views wnl Pancreas is suboptimally evaluated on images saved. Visualized liver is heterogeneously hyperechoic. Evaluation for focal masses suboptimal due to the heterogeneity. No intrahepatic ductal dilatation is seen. Evaluation for focal masses is suboptimal. Gallbladder is seen without shadowing mobile gallst ones. Common bile duct is minimally dilated. Gallbladder wall is mildly thickened up to 4 to 5 mm. Li mited images right kidney show no gross hydronephrosis. IMPRESSION: Heterogeneous hyperechoic appearance the liver could reflect products of diffuse fatty in filtration or underlying hepatocellular disease. No surrounding ascites is noted.
[2018-10-09 08:32] LABS: Anisocytosis Slight; HCT 27.7 % (39.0-53.0); HGB 8.3 gm/dL (13.0-17.5); Hypochromasia Marked; MCHC 29.9 g/dL (31.0-37.0); Macrocytosis Slight; Mean Platelet Volume 6.7; Platelet Count 601 k/uL (150-450); Poikilocytosis Moderate; RBC 2.85 m/uL (4.30-5.90); RDW 16.6 % (11.5-15.5); WBC 14.7 k/uL (3.8-10.6)
[2018-10-09 08:33] LABS: MCV 97.2 fL (80.0-100.0)
[2018-10-09] MEDS ORDERED: METOPROLOL TARTRATE 50 MG TAB PO SCH ×2 (09:00→21:00)
[2018-10-09] MEDS ORDERED: CLOPIDOGREL 75 MG TAB PO SCH (09:00)
[2018-10-09] MEDS ORDERED: ASPIRIN 325 MG TAB PO SCH ×2 (09:00)
[2018-10-09] MEDS ORDERED: ATORVASTATIN 40 MG TAB PO SCH (09:00)
[2018-10-09] MEDS ORDERED: FUROSEMIDE 40 MG TAB PO SCH (09:00)
[2018-10-09] MEDS ORDERED: AMIODARONE 200 MG TAB PO SCH (09:00)
[2018-10-09] MEDS: metFORMIN 500 MG TAB PO SCH ×2 (09:04→17:38)
[2018-10-09] MEDS: PANTOPRAZOLE 40 MG TABLET PO SCH (09:04)
[2018-10-09 09:05] LABS: ALT 767 U/L (21-72); AST 742 U/L (17-59); Albumin 3.8 g/dL (3.5-5.0); Alkaline Phosphatase 287 U/L (38-126); Anion Gap 11 mmol/L; Blood Urea Nitrogen 29 mg/dL (9-20); Calcium 8.6 mg/dL (8.4-10.2); Carbon Dioxide 28 mmol/L (22-30); Chloride 99 mmol/L (98-107); Glucose 171 mg/dL (74-99); Sodium 138 mmol/L (137-145); Total Bilirubin 1.2 mg/dL (0.2-1.3); Total Protein 7.1 g/dL (6.3-8.2)
[2018-10-09] MEDS ORDERED: IPRATROPIUM-ALBUTEROL 3 ML NEB INHALATION PRN (09:10)
--- NOTE | 2018-10-09 09:22 | P.CRDCN ---
History of Present Illness Consult date: 10/09/18 Requesting physician: Bryce Sexton Consult reason: atrial flutter Chief complaint: Shortness of breath, heart racing History of present illness: This is a pleasant 67-year-old gentleman with history of recent coronary artery bypass grafting surgery and aortic valve replacement. Patient underwent placement of a SNELL to the LAD, reverse saphenous vein graft from the aorta to the first diagonal, reverse saphenous vein graft to the first obtuse marginal and elective aortic valve replacement using a 27 mm pericardial bioprosthesis, surgery was performed on September 24. Patient also has documented history of hypertension, hyperlipidemia, morbid obesity, prior nicotine use, COPD. Patient went to see his primary care doctor yesterday, had been complaining of feeling more short of breath, as well as noticing his heart rate to be fast. An EKG was performed and patient was recommended to come to the hospital for admission. Chest x-ray on admission here showed minimal basilar subsegmental atelectasis, cardiomegaly and post surgical change. No pulmonary vascular congestion. Subsequent chest x-ray showed small pleural effusions, left greater than right basilar atelectasis. EKG on admission here showed wide complex tachycardia, possible atrial flutter. He was initiated on IV amiodarone in the emergency room, and converted this morning to normal sinus rhythm. Continues to be in normal sinus rhythm at the time of my examination. Was initiated on oral amiodarone this morning. Blood pressure this morning 150/90 with a heart rate in the 70s, 95% on 3 L of oxygen. White blood cell count on admission 10.4, 14.7 this morning. Hemoglobin on admission 7.9, 8.3 this mornin g. Platelet count 601. Sodium 136, potassium 4.3, BUN 29 and creatinine 0.9. Total bilirubin 1.6 on admission, 1.4 this morning. AST 747. ALT 666. Alk phos 287. Troponin 0.14, 0.13, 0.13. BNP level 3020. At the time of my examination this morning, patient is sitting up in his chair at bedside, he states when he tries to lay back even a little he becomes quite short of breath. He does have bilateral peripheral edema noted. His current medications include amiodarone 400 mg by mouth twice a day, aspirin 325 mg daily, Plavix 75 mg daily, Lasix 40 by mouth daily, metformin, prednisone was given in the emergency room, metoprolol 50 mg 3 times a day and Protonix. He has been started on subcu heparin at every 8 hourly. Past Medical History Past Medical History: Coronary Artery Disease (CAD), COPD, Hyperlipidemia, Hypertension Additional Past Medical History / Comment(s): Coronary artery disease and previous history of Bicuspid aortic valve with moderate to severe aortic valve stenosis with a peak gradient of 60 mmHg and a mean gradient of 30 mmHg across the aortic valve and moderate aortic valve regurgitation. The patient underwent coronary artery bypass surgery and aortic valve replacement with a prosthetic v alve, Morbid obesity with a BMI of 42.9 kg/m, COPD, hyperlipidemia, hypertension, diabetes mellitus History of Any Multi-Drug Resistant Organisms: None Reported Past Surgical History: Cardiac Valve Replacement, Coronary Bypass/CABG, Heart Catheterization, Orthopedic Surgery Additional Past Surgical History / Comment(s): ORIF LEFT ANKLE, LACERATION REPAIR OF LEFT FOREARM,RT BREAST I&D, on 09/24/2018 patient underwent a triple- vessel coronary artery bypass grafting using the left internal mammary artery to left anterior setting coronary artery, a reverse greater saphenous vein graft from the aorta to the first diagonal coronary artery, a reverse greater saphenous vein graft from the aorta to the first obtuse marginal coronary artery, and aortic valve replacement using a #27 mm pericardial bioprosthesis magna ease and exclusion of his left atrial appendage using a 40 mm Atriclip. Past Anesthesia/Blood Transfusion Reactions: No Reported Reaction Additional Past Anesthesia/Blood Transfusion Reaction / Comment(s): hx no blood transfusion Smoking Status: Former smoker - Past Family History Mother Family Medical History: Cancer Additional Family Medical History / Comment(s): LUNG CANCER Father Family Medical History: No Reported History Medications and Allergies Home Medications Medication Instructions Recorded Confirmed Type Aspirin 325 mg PO DAILY 07/29/18 10/08/18 History Cholecalciferol [Vitamin D3] 2,000 unit PO DAILY 08/12/18 10/08/18 History Atorvastatin [Lipitor] 40 mg PO DAILY #30 tab 09/30/18 10/08/18 Rx Clopidogrel [Plavix] 75 mg PO DAILY #30 tab 09/30/18 10/08/18 Rx Furosemide [Lasix] 40 mg PO DAILY #7 tab 09/30/18 10/08/18 Rx metFORMIN HCL [Glucophage] 500 mg PO BID-W/MEALS #60 tab 09/30/18 10/08/18 Rx Acetaminophen Tab [Tylenol] 650 mg PO Q6HR PRN 10/08/18 10/08/18 History Metoprolol Tartrate [Lopressor] 25 mg PO BID 10/08/18 10/08/18 History Allergies Allergy/AdvReac Type Severity Reaction Status Date / Time No Known Allergies Allergy Verified 10/08/18 11:37 Physical Exam Vitals: Vital Signs Temp Pulse Pulse Resp BP BP Pulse Ox 10/09/18 04:00 98.4 F 76 20 155/91 95 10/09/18 00:00 98.0 F 72 20 138/79 96 10/08/18 20:00 97.3 F L 94 20 138/79 91 L 10/08/18 17:35 97.9 F 63 22 123/74 98 10/08/18 16:46 95 10/08/18 16:44 83 16 128/98 83 L 10/08/18 13:23 147 H 18 146/80 96 10/08/18 12:57 152 H 22 120/89 96 10/08/18 12:11 152 H 18 104/89 98 10/08/18 12:04 152 H 10/08/18 12:03 99.7 F H 151 H 26 H 97/76 94 L 10/08/18 11:54 150 H Intake and Output 10/08/18 10/09/18 10/09/18 22:59 06:59 14:59 Output Total 350 850 450 Balance -350 -850 -450 Output: Urine 350 850 450 Other: Voiding Method Toilet Urinal # Voids 2 1 Weight 117.2 kg PHYSICAL EXAMINATION: GENERAL: 67-year-old gentleman in no acute distress at the time HEENT: Head is atraumatic, normocephalic. Pupils equal, round. Sclera anicteric. Conjunctiva are clear. Mucous membranes of the mouth are moist. Neck is supple. There is no elevated jugular venous pressure. No carotid bruit is heard. HEART EXAMINATION: Heart S1, S2 normal. No murmur or gallop heard. CHEST EXAMINATION: Lungs reveal scattered coarse wheezing throughout with mild diminished air entry to the bases posteriorly. ABDOMEN: Soft, obese, nontender. Bowel sounds are heard. No organomegaly noted. EXTREMITIES: 2+ peripheral pulses with 1+ evidence of peripheral edema , bilateral SUZIE hose in place . NEUROLOGIC patient is awake, alert and oriented 3 . . Results 10/09/18 06:57 10/09/18 06:57 Cardiac Enzymes 10/08/18 10/08/18 10/08/18 Range/Units 12:07 12:07 12:07 AST 747 H 747 H (17-59) U/L Troponin I 0.148 H* (0.000-0.034) ng/mL 10/08/18 10/08/18 Range/Units 18:26 23:51 AST (17-59) U/L Troponin I 0.138 H* 0.137 H* (0.000-0.034) ng/mL Coagulation 10/08/18 Range/Units 12:07 PT 12.7 H (9.0-12.0) sec APTT 23.3 (22.0-30.0) sec CBC 10/08/18 10/09/18 Range/Units 12:07 06:57 WBC 10.4 14.7 H (3.8-10.6) k/uL RBC 2.90 L 2.85 L (4.30-5.90) m/uL Hgb 7.9 L 8.3 L (13.0-17.5) gm/dL Hct 26.4 L 27.7 L (39.0-53.0) % Plt Count 572 H 601 H (150-450) k/uL Comprehensive Metabolic Panel 10/08/18 10/08/18 Range/Units 12:07 12:07 Sodium 136 L (137-145) mmol/L Potassium 4.3 (3.5-5.1) mmol/L Chloride 99 (98-107) mmol/L Carbon Dioxide 27 (22-30) mmol/L BUN 29 H (9-20) mg/dL Creatinine 0.94 (0.66-1.25) mg/dL Glucose 126 H (74-99) mg/dL Calcium 8.4 (8.4-10.2) mg/dL Unconjugated Bilirubin 0.8 (0.0-1.1) mg/dL AST 747 H 747 H (17-59) U/L ALT 624 H 666 H (21-72) U/L Alkaline Phosphatase 258 H 274 H (38-126) U/L Total Protein 5.9 L 5.8 L (6.3-8.2) g/dL Albumin 3.3 L 3.1 L (3.5-5.0) g/dL Current Medications Generic Name Dose Route Start Last Admin Trade Name Freq PRN Reason Stop Dose Admin Amiodarone HCl 400 mg 10/09/18 09:00 Cordarone PO BID [facility] Aspirin 325 mg 10/09/18 09:00 Aspirin PO DAILY [facility] Clopidogrel Bisulfate 75 mg 10/09/18 09:00 Plavix PO DAILY [facility] Furosemide 40 mg 10/09/18 09:00 Lasix PO DAILY [facility] Heparin Sodium (Porcine) 5,000 unit 10/08/18 15:30 10/09/18 06:56 Heparin SQ 5,000 unit Q8H TAYO Administration Amiodarone HCl 300 mg/ 250 mls @ 25 mls/hr 10/08/18 18:34 10/09/18 05:43 Dextrose/Water IV 10/09/18 12:33 Not Given .Q10H TAYO Protocol 0.5 MG/MIN Metformin HCl 500 mg 10/08/18 17:30 10/08/18 18:11 Glucophage PO 500 mg BID-W/MEALS TAYO Administration Metoprolol Tartrate 50 mg 10/09/18 09:00 Lopressor PO Q8H [facility] Nitroglycerin 0.4 mg 10/08/18 14:48 Nitrostat SUBLINGUAL Q5M PRN Chest Pain Pantoprazole Sodium 40 mg 10/09/18 07:30 Protonix PO AC-BRKFST [facility] Intake and Output 10/08/18 10/09/18 10/09/18 22:59 06:59 14:59 Output Total 350 850 450 Balance -350 -850 -450 Output: Urine 350 850 450 Other: Voiding Method Toilet Urinal # Voids 2 1 Weight 117.2 kg 10/09/18 06:57 10/08/18 12:07 EKG Interpretations (text) Initial EKG on presentation here shows a wide-complex tachycardia right bundle branch block pattern, possible underlying atrial flutter. Assessment and Plan Plan: Assessment and plan #1 atrial flutter with a rapid ventricular response #2 congestive heart failure, diastolic, acute on chronic, secondary to a a flutter with rapid ventricular response #3 recent aortic valve replacement and coronary artery bypass grafting surgery 3 #4 hypertension #5 hyperlipidemia #6 prior history of smoking #7 COPD #8 anemia #9 abnormal liver function, could be secondary to congestion, patient had also been on Lipitor, which is currently on hold. #10 low-grade temperature with mild abnormality in white blood cell count Plan We will discontinue the oral Lasix and start the patient on oral diuretics. Obtain TSH as well as echocardiogram with Doppler study. Patient's home dose of beta misbah has been increased, amiodarone has been discontinued due to the elevated liver functions. We will decrease the aspirin 81 mg daily and recommend to start the patient on Coumadin 2 mg daily if okay with cardiothoracic surgery. DNP note has been reviewed, I agree with a documented findings and plan of care. Patient was seen and examined.
--- NOTE | 2018-10-09 09:30 | P.PN ---
Subjective Progress Note Date: 10/09/18 Principal diagnosis: Atrial tachycardia, acute heart failure with elevated BNP, elevation in transaminases. History of coronary artery disease with left main disease status post triple coronary artery bypass grafting (SNELL to LAD, SVG to Diag1, SVG to OM1), bicuspid aortic valve with moderate to severe aortic stenosis status post bioprosthetic aortic valve replacement (Magna Ease #[id number]) with exclusion of the left atrial appendage, postoperative blood loss anemia which is expected given hemodilution and cardiopulmonary bypass pump, hypertension, hyperlipidemia, morbid obesity, previous tobacco dependence with mild COPD. Patient's currently sitting up in a recliner in no acute distress. Denies pain. Complains of continued shortness of breath, especially while laying back with patient elevated in the recliner. Patient does have edema present to bilateral lower extremities. Currently in normal sinus rhythm. No new complaints. Objective - Vital Signs Vital signs: Vital Signs Temp 98.4 F 10/09/18 04:00 Pulse 76 10/09/18 04:00 Resp 20 10/09/18 04:00 BP 155/91 10/09/18 04:00 Pulse Ox 95 10/09/18 04:00 Intake & Output 10/08/18 10/09/18 10/09/18 18:59 06:59 18:59 Output Total 350 850 Balance -350 -850 Weight 127.913 kg 117.2 kg Output: Urine 350 850 Other: Voiding Method Toilet Urinal # Voids 2 - Constitutional General appearance: Present: cooperative, no acute distress, obese - Respiratory Details: Lungs sounds diminished bilaterally with expiratory wheezes present. Respirations even, nonlabored at rest. Currently on 3 L nasal cannula with oxygen saturation 95%. Only able to achieve 750 mL on his incentive spirometry. - Cardiovascular Details: S1, S2 present. Regular rate and rhythm, sinus rhythm on telemetry. Palpable peripheral pulses bilaterally. 2-3+ bilateral lower extremity edema present. No calf pain or tenderness noted. Antiembolism stockings present. - Gastrointestinal Gastrointestinal Comment(s): Abdomen soft, nontender, nondistended, obese. Active bowel sounds present 4 quadrants. Tolerating diet. - Genitourinary Genitourinary Comment(s): Continues to void clear, yellow urine. - Integumentary Integumentary Comment(s): skin is warm and dry with evidence of good perfusion. Anterior chest incision well approximated. Right lower extremity EVH site with small amount serosanguineous drainage. - Neurologic Neurologic: Present: CNII-XII intact - Musculoskeletal Musculoskeletal: Present: gait normal - Psychiatric Psychiatric: Present: A&O x's 3, appropriate affect, intact judgment & insight - Allied health notes Allied health notes reviewed: nursing - Labs CBC & Chem 7: 10/09/18 06:57 10/09/18 06:57 Labs: Abnormal Lab Results - Last 24 Hours (Table) 10/08/18 10/08/18 10/08/18 Range/Units 12:07 12:07 12:07 WBC (3.8-10.6) k/uL RBC 2.90 L (4.30-5.90) m/uL Hgb 7.9 L (13.0-17.5) gm/dL Hct 26.4 L (39.0-53.0) % MCHC 29.8 L (31.0-37.0) g/dL RDW 16.3 H (11.5-15.5) % Plt Count 572 H (150-450) k/uL Neutrophils # 8.7 H (1.3-7.7) k/uL PT (9.0-12.0) sec INR (<1.2) Sodium 136 L (137-145) mmol/L BUN 29 H (9-20) mg/dL Glucose 126 H (74-99) mg/dL POC Glucose (mg/dL) (75-99) mg/dL Total Bilirubin 1.6 H (0.2-1.3) mg/dL Delta Bilirubin (0.0-0.2) mg/dL AST 747 H (17-59) U/L ALT 624 H (21-72) U/L Alkaline Phosphatase 258 H (38-126) U/L Troponin I 0.148 H* (0.000-0.034) ng/mL Total Protein 5.9 L (6.3-8.2) g/dL Albumin 3.3 L (3.5-5.0) g/dL 10/08/18 10/08/18 10/08/18 Range/Units 12:07 12:07 18:26 WBC (3.8-10.6) k/uL RBC (4.30-5.90) m/uL Hgb (13.0-17.5) gm/dL Hct (39.0-53.0) % MCHC (31.0-37.0) g/dL RDW (11.5-15.5) % Plt Count (150-450) k/uL Neutrophils # (1.3-7.7) k/uL PT 12.7 H (9.0-12.0) sec INR 1.2 H (<1.2) Sodium (137-145) mmol/L BUN (9-20) mg/dL Glucose (74-99) mg/dL POC Glucose (mg/dL) (75-99) mg/dL Total Bilirubin 1.4 H (0.2-1.3) mg/dL Delta Bilirubin 0.6 H (0.0-0.2) mg/dL AST 747 H (17-59) U/L ALT 666 H (21-72) U/L Alkaline Phosphatase 274 H (38-126) U/L Troponin I 0.138 H* (0.000-0.034) ng/mL Total Protein 5.8 L (6.3-8.2) g/dL Albumin 3.1 L (3.5-5.0) g/dL 10/08/18 10/08/18 10/09/18 Range/Units 20:51 23:51 06:14 WBC (3.8-10.6) k/uL RBC (4.30-5.90) m/uL Hgb (13.0-17.5) gm/dL Hct (39.0-53.0) % MCHC (31.0-37.0) g/dL RDW (11.5-15.5) % Plt Count (150-450) k/uL Neutrophils # (1.3-7.7) k/uL PT (9.0-12.0) sec INR (<1.2) Sodium (137-145) mmol/L BUN (9-20) mg/dL Glucose (74-99) mg/dL POC Glucose (mg/dL) 221 H 194 H (75-99) mg/dL Total Bilirubin (0.2-1.3) mg/dL Delta Bilirubin (0.0-0.2) mg/dL AST (17-59) U/L ALT (21-72) U/L Alkaline Phosphatase (38-126) U/L Troponin I 0.137 H* (0.000-0.034) ng/mL Total Protein (6.3-8.2) g/dL Albumin (3.5-5.0) g/dL 10/09/18 Range/Units 06:57 WBC 14.7 H (3.8-10.6) k/uL RBC 2.85 L (4.30-5.90) m/uL Hgb 8.3 L (13.0-17.5) gm/dL Hct 27.7 L (39.0-53.0) % MCHC 29.9 L (31.0-37.0) g/dL RDW 16.6 H (11.5-15.5) % Plt Count 601 H (150-450) k/uL Neutrophils # (1.3-7.7) k/uL PT (9.0-12.0) sec INR (<1.2) Sodium (137-145) mmol/L BUN (9-20) mg/dL Glucose (74-99) mg/dL POC Glucose (mg/dL) (75-99) mg/dL Total Bilirubin (0.2-1.3) mg/dL Delta Bilirubin (0.0-0.2) mg/dL AST (17-59) U/L ALT (21-72) U/L Alkaline Phosphatase (38-126) U/L Troponin I (0.000-0.034) ng/mL Total Protein (6.3-8.2) g/dL Albumin (3.5-5.0) g/dL - Imaging and Cardiology Chest x-ray: report reviewed, image reviewed Assessment and Plan Assessment: 1. Atrial tachycardia on admission, currently in normal sinus rhythm 2. Acute heart failure with elevated BNP 3. Elevation in transaminases 4. Coronary artery disease with left main disease, status post triple coronary artery bypass grafting 5. Bicuspid aortic valve with moderate to severe aortic stenosis, status post bioprosthetic aortic valve replacement 6. Hypertension 7. Hyperlipidemia 8. Morbid obesity 9. Previous tobacco dependence 10. Mild COPD Plan: 1. Continue aspirin, Plavix, beta misbah therapy. Lopressor increased to 50 mg every 8 hours. Statin discontinued secondary to elevated liver enzymes. 2. Continue amiodarone for A. fib prophylaxis. Will transition to oral. 3. Continue Lasix. 4. Updraft treatments ordered. 5. Encourage incentive spirometry use minimum 10 times every hour while awake. Patient needs aggressive pulmonary management. 6. Increase activity, ambulate in hallway. 7. Postoperative instructions reinforced. Patient should have legs elevated when not ambulatory. 8. GI prophylaxis with Protonix. DVT prophylaxis with subcu heparin. SCDs ordered, not currently on patient, discussed with RN. 9. Will follow labs and x-rays. 10. Ultrasound of abdomen reviewed. Echocardiogram ordered, pending. 11. Hopefully will be able to discharge patient soon once pulmonary status has been maximized. 12. More recommendations to follow. Time with Patient: Greater than 30
[2018-10-09] MEDS: METOPROLOL TARTRATE 50 MG TAB PO SCH ×2 (10:20→21:04)
[2018-10-09 11:46] LABS: Glucose,Whole Blood 179 mg/dL (75-99)
[2018-10-09] MEDS: IPRATROPIUM-ALBUTEROL 3 ML NEB INHALATION SCH ×3 (12:31→20:24)
--- NOTE | 2018-10-09 13:50 | ECHOF ---
Referral Reason:Recent cardiac surgery MEASUREMENTS -------- HEIGHT: 172.7 cm WEIGHT: 127.9 kg BP: FINDINGS -------- Resting tachycardia (HR>100bpm). This was a technically difficult study with suboptimal views. Pt. Very Sob Morbid Obesity Limit ed Study TDS due to CABG and Bandages. Study was technically difficult with lumason use. Can not estimate EF. The RV was not well visualized. The left atrium was not well visualized. The right atrium was not well visualized. xx ml of Lumason was utilized for enhancement of images. The aortic valve was not well visualized. The mitral valve was not well visualized. The tricuspid valve was not well visualized. The pulmonic valve was not well visualized. CONCLUSIONS -------- 1. Resting tachycardia (HR>100bpm). 2. This was a technically difficult study with suboptimal views. 3. Pt. Very Sob 4. Morbid Obesity 5. Limited Study 6. TDS due to CABG and Bandages. 7. Study was technically difficult with lumason use. Can not estimate EF. 8. The RV was not well visualized. 9. The left atrium was not well visualized. 10. The right atrium was not well visualized. 11. xx ml of Lumason was utilized for enhancement of images. 12. The aortic valve was not well visualized. 13. The mitral valve was not well visualized. 14. The tricuspid valve was not well visualized. 15. The pulmonic valve was not well visualized. STRETCHER AND DRIER: Mariel Arenas RDCS
[2018-10-09 15:39] LABS: Potassium 4.5 mmol/L (3.5-5.1)
[2018-10-09] MEDS ORDERED: methylPREDNISolone SOD SUCCI 40 MG/ML 1 ML VIAL IV SCH (16:00)
--- NOTE | 2018-10-09 16:01 | P.PN ---
Subjective Progress Note Date: 10/09/18 Principal diagnosis: Acute dyspnea/acute hypoxic failure, likely related to atrial tachycardia, and secondary decompensated failure with shortness of breath This is a 67-year-old gentleman who is followed by Dr. Don on an outpatient basis. He is a past medical history significant for a recent triple-vessel coronary artery bypass grafting surgery with placement of his left internal mammary artery to his left anterior descending coronary artery, a reverse greater saphenous vein graft from the aorta to the first diagonal coronary artery, a reverse greater saphenous vein graft from the aorta to the first obtuse marginal coronary artery, and an elective aortic valve replacement using a #27 mm pericardial bioprosthesis magna ease performed on 09/24/2018. He also has a past medical history significant for hypertension, hyperlipidemia, morbid obesity, previous tobacco dependence, COPD with preoperative FEV1 of 64% of predicted with the patient's course was essentially uncomplicated. The patient was discharged home. The patient presented his primary care physician's office with increased shortness of breath and the patient was found to have tachycardia with a heart rate in the 150, irregular. He was sent into the hospital and the patient was found to be in significant tachycardia with a heart rate of 150. This seems to be an atrial tachycardia. The rhythm is very regular at this point in time. May be sinus or supraventricular.. His EKG showed a wide-comp cassie QRS and a bundle-branch block pattern. The patient was started on amiodarone. Blood work was normal. There was some minimal troponin leak. BNP level was 3020. AST and ALT were also elevated at 747 and 624 respectively. The patient is currently on amiodarone drip. Chest x-ray showing cardiomegaly and small left-sided pleural effusion. He is afebrile. He is currently on 5 L of oxygen by nasal cannula and his pulse ox is around 98%. He was already given Lasix 40 mg IV push 1. Cardiology is on consult. Echocardiogram is pending for now. On 10/09/2018 patient seen in follow-up on selective care unit, continues on IV diuretics, diuresing, lung sounds reveal diffuse wheezes throughout, patient is currently is sinus rhythm with a controlled rate, no compressive chest pain, no complaints of worsening shortness of breath, currently on 3 L of oxygen with a pulse ox of 95%, afebrile. Today's labs have been reviewed, and showed the white blood cell count of 14.7, hemoglobin of 8.3, electrolytes are within normal limits, B1 is 29 creatinine is 0.80, AST is 742, ALT is 767, alkaline phosphatase is 287, patient did have mild elevation of troponins this admission, troponin of 0.148, 0.138, 0.137. Blood culture showed no growth, currently on Lasix 40 mg every 12 hours, he is on nebulized medical diabetes, we will add IV Solu-Medrol Objective - Vital Signs Vital signs: Vital Signs Temp 98.4 F 10/09/18 04:00 Pulse 80 10/09/18 12:49 Resp 20 10/09/18 04:00 BP 155/91 10/09/18 04:00 Pulse Ox 95 10/09/18 04:00 Intake & Output 10/08/18 10/09/18 10/09/18 18:59 06:59 18:59 Intake Total 240 Output Total 350 850 450 Balance -350 -850 -210 Weight 127.913 kg 117.2 kg Intake: Oral 240 Output: Urine 350 850 450 Other: Voiding Method Toilet Urinal # Voids 2 1 - Exam GENERAL EXAM: Alert, pleasant, 67-year-old white male, on 2 L of oxygen with a pulse ox of 95% comfortable in no apparent distress. HEAD: Normocephalic/atraumatic. EYES: Normal reaction of pupils, equal size. Conjunctiva pink, sclera white. NOSE: Clear with pink turbinates. THROAT: No erythema or exudates. NECK: No masses, no JVD, no thyroid enlargement, no adenopathy. CHEST: No chest wall deformity. Symmetrical expansion. LUNGS: Equal air entry with diffuse wheezing CVS: Regular rate and rhythm, normal S1 and S2, no gallops, no murmurs, no rubs ABDOMEN: Soft, nontender. No hepatosplenomegaly, normal bowel sounds, no guard ing or rigidity. EXTREMITIES: No clubbing, 1+ edema, no cyanosis, 2+ pulses and upper and lower extremities. MUSCULOSKELETAL: Muscle strength and tone normal. SPINE: No scoliosis or deformity SKIN: No rashes CENTRAL NERVOUS SYSTEM: Alert and oriented -3. No focal deficits, tone is normal in all 4 extremities. PSYCHIATRIC: Alert and oriented -3. Appropriate affect. Intact judgment and insight. - Labs CBC & Chem 7: 10/09/18 06:57 10/09/18 06:57 Labs: Abnormal Lab Results - Last 24 Hours (Table) 10/08/18 10/08/18 10/08/18 Range/Units 12:07 18:26 20:51 WBC (3.8-10.6) k/uL RBC (4.30-5.90) m/uL Hgb (13.0-17.5) gm/dL Hct (39.0-53.0) % MCHC (31.0-37.0) g/dL RDW (11.5-15.5) % Plt Count (150-450) k/uL BUN (9-20) mg/dL Glucose (74-99) mg/dL POC Glucose (mg/dL) 221 H (75-99) mg/dL Total Bilirubin 1.4 H (0.2-1.3) mg/dL Delta Bilirubin 0.6 H (0.0-0.2) mg/dL AST 747 H (17-59) U/L ALT 666 H (21-72) U/L Alkaline Phosphatase 274 H (38-126) U/L Troponin I 0.138 H* (0.000-0.034) ng/mL Total Protein 5.8 L (6.3-8.2) g/dL Albumin 3.1 L (3.5-5.0) g/dL 10/08/18 10/09/18 10/09/18 Range/Units 23:51 06:14 06:57 WBC 14.7 H (3.8-10.6) k/uL RBC 2.85 L (4.30-5.90) m/uL Hgb 8.3 L (13.0-17.5) gm/dL Hct 27.7 L (39.0-53.0) % MCHC 29.9 L (31.0-37.0) g/dL RDW 16.6 H (11.5-15.5) % Plt Count 601 H (150-450) k/uL BUN (9-20) mg/dL Glucose (74-99) mg/dL POC Glucose (mg/dL) 194 H (75-99) mg/dL Total Bilirubin (0.2-1.3) mg/dL Delta Bilirubin (0.0-0.2) mg/dL AST (17-59) U/L ALT (21-72) U/L Alkaline Phosphatase (38-126) U/L Troponin I 0.137 H* (0.000-0.034) ng/mL Total Protein (6.3-8.2) g/dL Albumin (3.5-5.0) g/dL 10/09/18 10/09/18 Range/Units 06:57 11:44 WBC (3.8-10.6) k/uL RBC (4.30-5.90) m/uL Hgb (13.0-17.5) gm/dL Hct (39.0-53.0) % MCHC (31.0-37.0) g/dL RDW (11.5-15.5) % Plt Count (150-450) k/uL BUN 29 H (9-20) mg/dL Glucose 171 H (74-99) mg/dL POC Glucose (mg/dL) 179 H (75-99) mg/dL Total Bilirubin (0.2-1.3) mg/dL Delta Bilirubin (0.0-0.2) mg/dL AST 742 H (17-59) U/L ALT 767 H (21-72) U/L Alkaline Phosphatase 287 H (38-126) U/L Troponin I (0.000-0.034) ng/mL Total Protein (6.3-8.2) g/dL Albumin (3.5-5.0) g/dL Microbiology - Last 24 Hours (Table) 10/08/18 12:07 Blood Culture - Preliminary Blood No Growth after 24 hours Assessment and Plan Plan: Assessment: 1 acute dyspnea/acute hypoxic history failure currently under investigation. Consider atrial tachycardia with secondary decompensated heart failure contributing to this patient shortness of breath 2 acute tachycardia, likely supraventricular/atrial tachycardia versus atrial flutter. Currently on amiodarone for rate control 3 decompensated heart failure secondary to above. The patient has also developed increased lower extremity edema and there is some mild elevation of the proBNP level. 4 troponin leak secondary to above 5 morbid obesity 6 COPD with a baseline FEV1 of 64% of predicted 7 coronary artery disease presents bypass surgery 8 bicuspid aortic valve causing significant/severe aortic stenosis and the patient is status post bioprosthetic aortic valve replacement/aVR along with resection of the atrial appendage. 9 left-sided pleural effusion, post thoracotomy versus reactive to CHF 10 normal LFTs 11 hyperlipidemia 12 hypertension 13 diabetes mellitus 14 normocytic anemia, multifactorial Plan: We'll continue IV diuretics, accurate I&O's, daily weights, will add IV Solu- Medrol 60 g every 6 hours, patient is bronchospastic, we'll continue nebulized bronchodilators, no fever or chills, patient is currently back in sinus rhythm with a controlled rate. No complaints of chest pain, her enzymes are fairly stable, ultrasound of the gallbladder which showed diffuse fatty infiltration of the liver, obstructive disease, no gallstones, common bile duct minimally dilated. No hydronephrosis. Chest x-ray in the morning I performed a history & physical examination of the patient and discussed their management with my nurse practitioner, Laney Guevara. I reviewed the nurse practitioner's note and agree with the documented findings and plan of care. Lung sounds are positive for diffuse wheezes throughout the lung boone. The findings and the impression was discussed with the patient. I attest to the documentation by the nurse practitioner. Time with Patient: Less than 30
[2018-10-09 16:54] LABS: Glucose,Whole Blood 136 mg/dL (75-99)
[2018-10-09 17:10] LABS: Hemoglobin A1C 5.7 % (4.0-6.0)
[2018-10-09] MEDS: methylPREDNISolone SOD SUCCI 125 MG/2 ML VIAL IV SCH (17:37)
[2018-10-09] MEDS ORDERED: LACTULOSE 20 GM/30 ML CUP PO ONE (19:17)
--- NOTE | 2018-10-09 19:37 | P.HPIM ---
History of Present Illness H&P Date: 10/09/18 Chief Complaint: Shortness of breath History of presenting complaint: This is a very pleasant 67 year old patient who was just discharged from hospital just over a week following coronary bypass and aortic valve replacement with a prosthetic valve. Patient presented to the family doctor's office has been progressively getting more and more short of breath. Heart was racing. He also has some lower extremity edema. Patient started on the Cardizem drip in the ER felt to be in atrial flutter. With the rapid ventricular rate. Patient's appetite has been okay. Has not had a bowel movement for close to a week. No fever no chills. Some orthopnea. Other chronic stable medical conditions include hypertension, hyperlipidemia,. No fever no chills. No chest pain. Review of systems: GEN.: Tired EYES: None HEENT: None NECK: None RESPIRATORY: As above CARDIOVASCULAR: As above GASTROINTESTINAL: Constipated GENITOURINARY: None MUSCULOSKELETAL: None LYMPHATICS: None HEMATOLOGICAL: None PSYCHIATRY: None NEUROLOGICAL: None Past medical history: Coronary artery disease, aortic valve replacement, essential hypertension, hyperlipidemia, obesity. Social history: , smoked 2 packs a day for 40 years stopped in 2013. Alcohol none Family history: Lung cancer Physical examination: VITAL SIGNS: 99.7, 151, 26, 97/76, 94% room air GENERAL: BMI 39.3, sitting up, short of breath. EYES: Pupils equal. Conjunctiva normal. HEENT: External appearance of nose and ears normal, oral cavity grossly normal. NECK: JVD unable to assess, masses palpable. HEART: Heart sounds irregular, edema present. LUNGS: Respiratory rate increased, diminished breath sounds. ABDOMEN: Soft, nontender, liver spleen not palpable, no masses palpable. LYMPHATICS: No lymph nodes palpable in the axilla and neck. PSYCH: Alert and oriented x3; mood and affect normal. NEUROLOGICAL: Cranial nerves grossly intact; no facial asymmetry, power and sensation grossly intact. Investigations [reviewed in the clinical context] White count 10.4, hemoglobin 7.9, platelets were 72, potassium 4.3, BUN 29, creatinine 0.94. Hemoglobin prior to discharge was 7.2 AST 747, AST 666, troponin I 0.137 ProBNP 3020 EKG-tracing personally reviewed by me shows regular rhythm with a heart rate around 150 could be underlying atrial tachycardia/atrial flutter. With a right bundle branch block pattern Chest x-ray-film personally reviewed by me shows cardiomegaly venous prominence small pleural effusion Assessment: -Acute on chronic congestive heart failure exacerbation, EF not known -Persistent atrial flutter/atrial tachycardia with a rapid ventricular rate, precipitating atrial fibrillation -Coronary artery disease with recent coronary bypass and aortic valve replacement with prosthetic valve -Essential hypertension -Hyperlipidemia -Obesity BMI 39.3 -Acute hepatitis, could be ischemic. We will hold off Lipitor . Plan: Consultation was made to cardiology and cardiothoracic surgery. Patient initially put on a Cardizem drip. Home medications are resumed. Patient is constipated be given a lactulose. Also given IV Lasix. Doing better today. Aggressively followed closely. Patient was earlier started on Eliquis. Care was discussed with the patient and family the bedside. Given lactulose.. Past Medical History Past Medical History: Coronary Artery Disease (CAD), COPD, Hyperlipidemia, Hypertension Additional Past Medical History / Comment(s): Coronary artery disease and previous history of Bicuspid aortic valve with moderate to severe aortic valve stenosis with a peak gradient of 60 mmHg and a mean gradient of 30 mmHg across the aortic valve and moderate aortic valve regurgitation. The patient underwent coronary artery bypass surgery and aortic valve replacement with a prosthetic valve, Morbid obesity with a BMI of 42.9 kg/m, COPD, hyperlipidemia, hypertension, diabetes mellitus History of Any Multi-Drug Resistant Organisms: None Reported Past Surgical History: Cardiac Valve Replacement, Coronary Bypass/CABG, Heart Catheterization, Orthopedic Surgery Additional Past Surgical History / Comment(s): ORIF LEFT ANKLE, LACERATION REPAIR OF LEFT FOREARM,RT BREAST I&D, on 09/24/2018 patient underwent a triple-vessel coronary artery bypass grafting using the left internal mammary artery to left anterior setting coronary artery, a reverse greater saphenous vein graft from the aorta to the first diagonal coronary artery, a reverse greater saphenous vein graft from the aorta to the first obtuse marginal coronar y artery, and aortic valve replacement using a #27 mm pericardial bioprosthesis magna ease and exclusion of his left atrial appendage using a 40 mm Atriclip. Past Anesthesia/Blood Transfusion Reactions: No Reported Reaction Additional Past Anesthesia/Blood Transfusion Reaction / Comment(s): hx no blood transfusion Smoking Status: Former smoker - Past Family History Mother Family Medical History: Cancer Additional Family Medical History / Comment(s): LUNG CANCER Father Family Medical History: No Reported History Medications and Allergies Home Medications Medication Instructions Recorded Confirmed Type Aspirin 325 mg PO DAILY 07/29/18 10/08/18 History Cholecalciferol [Vitamin D3] 2,000 unit PO DAILY 08/12/18 10/08/18 History Atorvastatin [Lipitor] 40 mg PO DAILY #30 tab 09/30/18 10/08/18 Rx Clopidogrel [Plavix] 75 mg PO DAILY #30 tab 09/30/18 10/08/18 Rx Furosemide [Lasix] 40 mg PO DAILY #7 tab 09/30/18 10/08/18 Rx metFORMIN HCL [Glucophage] 500 mg PO BID-W/MEALS #60 tab 09/30/18 10/08/18 Rx Acetaminophen Tab [Tylenol] 650 mg PO Q6HR PRN 10/08/18 10/08/18 History Metoprolol Tartrate [Lopressor] 25 mg PO BID 10/08/18 10/08/18 History Allergies Allergy/AdvReac Type Severity Reaction Status Date / Time No Known Allergies Allergy Verified 10/08/18 11:37 Physical Exam Vitals: Vital Signs Temp Pulse Pulse Resp BP BP Pulse Ox 10/09/18 04:00 98.4 F 76 20 155/91 95 10/09/18 00:00 98.0 F 72 20 138/79 96 10/08/18 20:00 97.3 F L 94 20 138/79 91 L 10/08/18 17:35 97.9 F 63 22 123/74 98 10/08/18 16:46 95 10/08/18 16:44 83 16 128/98 83 L 10/08/18 13:23 147 H 18 146/80 96 10/08/18 12:57 152 H 22 120/89 96 Intake and Output 10/08/18 10/09/18 10/09/18 22:59 06:59 14:59 Output Total 350 850 450 Balance -350 -850 -450 Output: Urine 350 850 450 Other: Voiding Method Toilet Urinal # Voids 2 1 Weight 117.2 kg Results CBC & Chem 7: 10/09/18 06:57 10/09/18 06:57 Labs: Abnormal Lab Results - Last 24 Hours (Table) 10/08/18 10/08/18 10/08/18 Range/Units 12:07 12:07 12:07 WBC (3.8-10.6) k/uL RBC 2.90 L (4.30-5.90) m/uL Hgb 7.9 L (13.0-17.5) gm/dL Hct 26.4 L (39.0-53.0) % MCHC 29.8 L (31.0-37.0) g/dL RDW 16.3 H (11.5-15.5) % Plt Count 572 H (150-450) k/uL Neutrophils # 8.7 H (1.3-7.7) k/uL PT (9.0-12.0) sec INR (<1.2) Sodium 136 L (137-145) mmol/L BUN 29 H (9-20) mg/dL Glucose 126 H (74-99) mg/dL POC Glucose (mg/dL) (75-99) mg/dL Total Bilirubin 1.6 H (0.2-1.3) mg/dL Delta Bilirubin (0.0-0.2) mg/dL AST 747 H (17-59) U/L ALT 624 H (21-72) U/L Alkaline Phosphatase 258 H (38-126) U/L Troponin I 0.148 H* (0.000-0.034) ng/mL Total Protein 5.9 L (6.3-8.2) g/dL Albumin 3.3 L (3.5-5.0) g/dL 10/08/18 10/08/18 10/08/18 Range/Units 12: 12:07 18:26 WBC (3.8-10.6) k/uL RBC (4.30-5.90) m/uL Hgb (13.0-17.5) gm/dL Hct (39.0-53.0) % MCHC (31.0-37.0) g/dL RDW (11.5-15.5) % Plt Count (150-450) k/uL Neutrophils # (1.3-7.7) k/uL PT 12.7 H (9.0-12.0) sec INR 1.2 H (<1.2) Sodium (137-145) mmol/L BUN (9-20) mg/dL Glucose (74-99) mg/dL POC Glucose (mg/dL) (75-99) mg/dL Total Bilirubin 1.4 H (0.2-1.3) mg/dL Delta Bilirubin 0.6 H (0.0-0.2) mg/dL AST 747 H (17-59) U/L ALT 666 H (21-72) U/L Alkaline Phosphatase 274 H (38-126) U/L Troponin I 0.138 H* (0.000-0.034) ng/mL Total Protein 5.8 L (6.3-8.2) g/dL Albumin 3.1 L (3.5-5.0) g/dL 10/08/18 10/08/18 10/09/18 Range/Units 20:51 23:51 06:14 WBC (3.8-10.6) k/uL RBC (4.30-5.90) m/uL Hgb (13.0-17.5) gm/dL Hct (39.0-53.0) % MCHC (31.0-37.0) g/dL RDW (11.5-15.5) % Plt Count (150-450) k/uL Neutrophils # (1.3-7.7) k/uL PT (9.0-12.0) sec INR (<1.2) Sodium (137-145) mmol/L BUN (9-20) mg/dL Glucose (74-99) mg/dL POC Glucose (mg/dL) 221 H 194 H (75-99) mg/dL Total Bilirubin (0.2-1.3) mg/dL Delta Bilirubin (0.0-0.2) mg/dL AST (17-59) U/L ALT (21-72) U/L Alkaline Phosphatase (38-126) U/L Troponin I 0.137 H* (0.000-0.034) ng/mL Total Protein (6.3-8.2) g/dL Albumin (3.5-5.0) g/dL 10/09/18 10/09/18 10/09/18 Range/Units 06:57 06:57 11:44 WBC 14.7 H (3.8-10.6) k/uL RBC 2.85 L (4.30-5.90) m/uL Hgb 8.3 L (13.0-17.5) gm/dL Hct 27.7 L (39.0-53.0) % MCHC 29.9 L (31.0-37.0) g/dL RDW 16.6 H (11.5-15.5) % Plt Count 601 H (150-450) k/uL Neutrophils # (1.3-7.7) k/uL PT (9.0-12.0) sec INR (<1.2) Sodium (137-145) mmol/L BUN 29 H (9-20) mg/dL Glucose 171 H (74-99) mg/dL POC Glucose (mg/dL) 179 H (75-99) mg/dL Total Bilirubin (0.2-1.3) mg/dL Delta Bilirubin (0.0-0.2) mg/dL AST 742 H (17-59) U/L ALT 767 H (21-72) U/L Alkaline Phosphatase 287 H (38-126) U/L Troponin I (0.000-0.034) ng/mL Total Protein (6.3-8.2) g/dL Albumin (3.5-5.0) g/dL Thrombosis Risk Factor Assmnt - Choose All That Apply Any of the Below Risk Factors Present?: Yes Each Factor Represents 1 point: Abnormal pulmonary function (COPD), Obesity (BMI >25), Swollen legs (current) Other Risk Factors: Yes Each Risk Factor Represents 2 Points: Age 61-74 years Other congenital or acquired thrombophilia - If yes, enter type in comment: No Thrombosis Risk Factor Assessment Total Risk Factor Score: 5 Thrombosis Risk Factor Assessment Level: High Risk
[2018-10-09 20:25] VITALS: RESP 18
[2018-10-09 20:25] LABS: Glucose,Whole Blood 208 mg/dL (75-99)
[2018-10-09] MEDS: APIXABAN 5 MG TAB PO SCH (21:03)
[2018-10-09] MEDS: FUROSEMIDE 10 MG/ML 4 ML VIAL IV SCH (21:08)
[2018-10-09] MEDS: INSULIN ASPART (NovoLOG) 100 UNIT/ML VIAL SQ SCH (22:30)
[2018-10-10] MEDS: methylPREDNISolone SOD SUCCI 125 MG/2 ML VIAL IV SCH ×4 (00:15→22:43)
[2018-10-10 06:22] LABS: Glucose,Whole Blood 178 mg/dL (75-99)
[2018-10-10] MEDS: INSULIN ASPART (NovoLOG) 100 UNIT/ML VIAL SQ SCH ×5 (06:36→22:44)
[2018-10-10] MEDS: PANTOPRAZOLE 40 MG TABLET PO SCH (06:46)
[2018-10-10] MEDS: metFORMIN 500 MG TAB PO SCH ×2 (06:46→17:17)
[2018-10-10 07:11] LABS: Anisocytosis Slight; Basophils % (A) 0 %; Eosinophils % (A) 0 %; HGB 7.6 gm/dL (13.0-17.5); Hypochromasia Marked; Lymphocytes # (A) 0.5 k/uL (1.0-4.8); Lymphocytes % (A) 4 %; MCH 27.4 pg (25.0-35.0); MCHC 29.1 g/dL (31.0-37.0); Mean Platelet Volume 6.7; Monocytes # (A) 0.5 k/uL (0-1.0); Monocytes % (A) 3 %; Neutrophils # (A) 13.7 k/uL (1.3-7.7); Neutrophils % (A) 93 %; Platelet Count 484 k/uL (150-450); Poikilocytosis Moderate; RBC 2.77 m/uL (4.30-5.90); RDW 16.5 % (11.5-15.5); WBC 14.8 k/uL (3.8-10.6)
[2018-10-10 07:23] LABS: ALT 476 U/L (21-72); AST 216 U/L (17-59); Albumin 3.5 g/dL (3.5-5.0); Alkaline Phosphatase 245 U/L (38-126); Anion Gap 8 mmol/L; Blood Urea Nitrogen 28 mg/dL (9-20); Calcium 8.2 mg/dL (8.4-10.2); Carbon Dioxide 34 mmol/L (22-30); Chloride 98 mmol/L (98-107); Glucose 161 mg/dL (74-99); Magnesium 2.6 mg/dL (1.6-2.3); Potassium 4.2 mmol/L (3.5-5.1); Sodium 140 mmol/L (137-145); Total Bilirubin 1.1 mg/dL (0.2-1.3); Total Protein 6.1 g/dL (6.3-8.2)
[2018-10-10] MEDS: IPRATROPIUM-ALBUTEROL 3 ML NEB INHALATION SCH ×4 (08:01→21:58)
--- NOTE | 2018-10-10 08:21 | XR ---
EXAMINATION TYPE: XR chest 2V DATE OF EXAM: 10/10/2018 COMPARISON: 10/09/2018 HISTORY: Shortness of breath TECHNIQUE: Frontal and lateral views of the chest are obtained. FINDINGS: Small layering left pleural effusion is seen as well as a trace right pleural effusion luz marina nting the costophrenic angle. Retrocardiac airspace is linear and favored to represent atelectasis. P ostoperative changes of the enlarged cardiomediastinal silhouette are again noted. No pneumothorax is seen. Patient's chin does obscure the lung apices. No pulmonary vascular congestion. IMPRESSION: Stable small left and trace right pleural effusions and retrocardiac airspace disease, l ikely atelectasis.
[2018-10-10] MEDS: SENNOSIDES 8.6 MG TAB PO SCH (09:12)
[2018-10-10] MEDS: APIXABAN 5 MG TAB PO SCH ×2 (09:12→22:43)
[2018-10-10] MEDS: METOPROLOL TARTRATE 50 MG TAB PO SCH ×2 (09:12→22:43)
[2018-10-10] MEDS: ASPIRIN 81 MG PO SCH (09:12)
[2018-10-10] MEDS: FUROSEMIDE 10 MG/ML 4 ML VIAL IV SCH ×2 (09:13→22:43)
--- NOTE | 2018-10-10 11:11 | P.PN ---
Subjective Progress Note Date: 10/10/18 Principal diagnosis: Atrial tachycardia, acute heart failure with elevated BNP and elevation in transaminases. History of coronary artery disease with left main disease status post triple coronary artery bypass grafting (SNELL to LAD, SVG to Diag1, SVG to OM1), bicuspid aortic valve with moderate to severe aortic stenosis status post bioprosthetic aortic valve replacement (Magna Ease #27mm) with exclusion of the left atrial appendage on 09/24/2018, postoperative acute blood loss anemia which is expected given hemodilution and cardiopulmonary bypass pump, hypertension, hyperlipidemia, morbid obesity, previous tobacco dependence with COPD with a baseline FEV1 of 64% of predicted value. Currently the patient is sitting in the bedside chair on the 3 S. cardiac stepdown unit in no acute distress. He denies any complaints of pain at this time and reports that his shortness of breath has improved since his admission. He also reports that he is still unable to lay flat without getting short of breath. +2 edema to his bilateral lower extremities. Remote telemetry showing normal sinus rhythm heart rate 84. Currently on 2 L nasal cannula with oxygen saturation 95% and he is achieving 750 mL on his incentive spirometry. The patient reports that he feels constipated. Objective - Vital Signs Vital signs: Vital Signs Temp 98.0 F 10/10/18 04:00 Pulse 72 10/10/18 08:01 Resp 18 10/10/18 04:00 BP 137/75 10/10/18 04:00 Pulse Ox 97 10/10/18 08:01 Intake & Output 10/09/18 10/10/18 10/10/18 18:59 06:59 18:59 Intake Total 480 Output Total 450 500 Balance 30 -500 Weight 119.7 kg Intake: Oral 480 Output: Urine 450 500 Other: Voiding Method Toilet Toilet Urinal Urinal # Voids 2 1 - Constitutional General appearance: Present: cooperative, morbidly obese, no acute distress - Neck Details: Neck is supple, negative for JVD, negative for lymphadenopathy. - Respiratory Details: Lung sounds with scattered expiratory wheezes throughout, diminished to his bilateral bases, left greater than right. Respirations are symmetrical and nonlabored. Oxygen saturation are 95% on 2 L nasal cannula. Achieving 750 mL on his incentive spirometry. - Cardiovascular Details: Regular rhythm and rate. S1 and S2 present, negative for S3, gallop or murmur. Sternum is stable. +2 edema to his bilateral lower extremities. Knee-high SUZIE hose and sequential compression devices in place to his bilateral lower extremities. Heart hugger is in place and he is demonstrating appropriate use. Remote telemetry showing normal sinus rhythm heart rate 84. - Gastrointestinal Gastrointestinal Comment(s): Abdomen is soft, nontender and nondistended. Hypoactive bowel sounds all 4 abdominal quadrants. Obese. No guarding or rigidity. No organomegaly. - Genitourinary Genitourinary Comment(s): Voiding clear lamberto urine. - Integumentary Integumentary Comment(s): Skin is warm and dry. No clubbing or cyanosis is present. Midline sternal incision is clean, dry and approximated. Dermabond dressing is clean, dry and intact. No drainage or redness is present. Right lower extremity EVH site clean, dry and approximated. No drainage or redness is present. Scattered ecchymosis to his right lower extremity, nontender and soft to palpate. - Neurologic Neurologic: Present: CNII-XII intact - Musculoskeletal Musculoskeletal: Present: gait normal, generalized weakness, strength equal bilaterally - Psychiatric Psychiatric: Present: A&O x's 3, appropriate affect, intact judgment & insight - Allied health notes Allied health notes reviewed: nursing - Labs CBC & Chem 7: 10/10/18 06:49 10/10/18 06:49 Labs: Abnormal Lab Results - Last 24 Hours (Table) 10/09/18 10/09/18 10/09/18 Range/Units 06:57 06:57 11:44 WBC 14.7 H (3.8-10.6) k/uL RBC 2.85 L (4.30-5.90) m/uL Hgb 8.3 L (13.0-17.5) gm/dL Hct 27.7 L (39.0-53.0) % MCHC 29.9 L (31.0-37.0) g/dL RDW 16.6 H (11.5-15.5) % Plt Count 601 H (150-450) k/uL Neutrophils # (1.3-7.7) k/uL Lymphocytes # (1.0-4.8) k/uL Carbon Dioxide (22-30) mmol/L BUN 29 H (9-20) mg/dL Glucose 171 H (74-99) mg/dL POC Glucose (mg/dL) 179 H (75-99) mg/dL Calcium (8.4-10.2) mg/dL Magnesium (1.6-2.3) mg/dL AST 742 H (17-59) U/L ALT 767 H (21-72) U/L Alkaline Phosphatase 287 H (38-126) U/L Total Protein (6.3-8.2) g/dL 10/09/18 10/09/18 10/10/18 Range/Units 16:52 20:23 06:20 WBC (3.8-10.6) k/uL RBC (4.30-5.90) m/uL Hgb (13.0-17.5) gm/dL Hct (39.0-53.0) % MCHC (31.0-37.0) g/dL RDW (11.5-15.5) % Plt Count (150-450) k/uL Neutrophils # (1.3-7.7) k/uL Lymphocytes # (1.0-4.8) k/uL Carbon Dioxide (22-30) mmol/L BUN (9-20) mg/dL Glucose (74-99) mg/dL POC Glucose (mg/dL) 136 H 208 H 178 H (75-99) mg/dL Calcium (8.4-10.2) mg/dL Magnesium (1.6-2.3) mg/dL AST (17-59) U/L ALT (21-72) U/L Alkaline Phosphatase (38-126) U/L Total Protein (6.3-8.2) g/dL 10/10/18 10/10/18 Range/Units 06:49 06:49 WBC 14.8 H (3.8-10.6) k/uL RBC 2.77 L (4.30-5.90) m/uL Hgb 7.6 L (13.0-17.5) gm/dL Hct 26.0 L (39.0-53.0) % MCHC 29.1 L (31.0-37.0) g/dL RDW 16.5 H (11.5-15.5) % Plt Count 484 H (150-450) k/uL Neutrophils # 13.7 H (1.3-7.7) k/uL Lymphocytes # 0.5 L (1.0-4.8) k/uL Carbon Dioxide 34 H (22-30) mmol/L BUN 28 H (9-20) mg/dL Glucose 161 H (74-99) mg/dL POC Glucose (mg/dL) (75-99) mg/dL Calcium 8.2 L (8.4-10.2) mg/dL Magnesium 2.6 H (1.6-2.3) mg/dL AST 216 H (17-59) U/L ALT 476 H (21-72) U/L Alkaline Phosphatase 245 H (38-126) U/L Total Protein 6.1 L (6.3-8.2) g/dL Microbiology - Last 24 Hours (Table) 10/08/18 12:07 Blood Culture - Preliminary Blood No Growth after 24 hours - Imaging and Cardiology Chest x-ray: image reviewed Assessment and Plan (1) Atrial flutter with rapid ventricular response Current Visit: Yes Status: Acute Code(s): I48.92 - UNSPECIFIED ATRIAL FLUTTER SNOMED Code(s): 7456552 (2) Shortness of breath on exertion Current Visit: Yes Status: Acute Code(s): R06.02 - SHORTNESS OF BREATH SNOMED Code(s): 52955179 (3) Status post aortic valve replacement Current Visit: No Status: Acute Code(s): Z95.2 - PRESENCE OF PROSTHETIC HEART VALVE SNOMED Code(s): 5793518480858 (4) Status post aorto-coronary artery bypass graft Current Visit: No Status: Acute Code(s): Z95.1 - PRESENCE OF AORTOCORONARY BYPASS GRAFT SNOMED Code(s): 831228311 (5) Acute blood loss as cause of postoperative anemia Current Visit: Yes Status: Acute Code(s): D62 - ACUTE POSTHEMORRHAGIC ANEMIA SNOMED Code(s): 26027921752226501 (6) Aortic valve stenosis Current Visit: No Status: Chronic Code(s): I35.0 - NONRHEUMATIC AORTIC (VALVE) STENOSIS SNOMED Code(s): 75796526 (7) Coronary artery disease Current Visit: No Status: Chronic Code(s): I25.10 - ATHSCL HEART DISEASE OF [place] CORONARY ARTERY W/O ANG PCTRS SNOMED Code(s): 10626562 (8) COPD (chronic obstructive pulmonary disease) Current Visit: No Status: Chronic Code(s): J44.9 - CHRONIC OBSTRUCTIVE PULMONARY DISEASE, UNSPECIFIED SNOMED Code(s): 16113164 (9) Hyperlipidemia Current Visit: No Status: Chronic Code(s): E78.5 - HYPERLIPIDEMIA, UNSPECIFIED SNOMED Code(s): 41510979 (10) Hypertension Current Visit: No Status: Chronic Code(s): I10 - ESSENTIAL (PRIMARY) HYPERTENSION SNOMED Code(s): 62297465 (11) Elevated brain natriuretic peptide (BNP) level Current Visit: Yes Status: Acute Code(s): R79.89 - OTHER SPECIFIED ABNORMAL FINDINGS OF BLOOD CHEMISTRY SNOMED Code(s): 557798408 (12) Elevated AST (SGOT) Current Visit: Yes Status: Acute Code(s): R74.0 - NONSPEC ELEV OF LEVELS OF TRANSAMNS & LACTIC ACID DEHYDRGNSE SNOMED Code(s): 331985163 (13) Elevated ALT measurement Current Visit: Yes Status: Acute Code(s): R74.0 - NONSPEC ELEV OF LEVELS OF TRANSAMNS & LACTIC ACID DEHYDRGNSE SNOMED Code(s): 346876269 (14) Morbid obesity Current Visit: No Status: Chronic Code(s): E66.01 - MORBID (SEVERE) OBESITY DUE TO EXCESS CALORIES SNOMED Code(s): 673537308 (15) Tobacco dependence in remission Current Visit: No Status: Resolved Code(s): F17.201 - NICOTINE DEPENDENCE, UNSPECIFIED, IN REMISSION SNOMED Code(s): 869787049 Plan: 1. Continue aspirin, Eliquis and beta misbah therapy. Lopressor increased to 100 mg by mouth twice a day yesterday. 2. Statin and amiodarone discontinued yesterday secondary to elevated liver enzymes. Liver enzymes are trending down. 3. Continue IV Lasix. 4. Bronchodilator and steroid management per pulmonology. 5. Encourage incentive spirometry use minimum 10 times every hour while awake. Patient needs aggressive pulmonary management. 6. Increase activity, ambulate in hallway. Physical therapy and occupational therapy following. Cardiac rehab consulted. 7. Postoperative instructions reinforced. Patient should have legs elevated when not ambulatory and needs reminding on use of his heart hugger. 8. GI prophylaxis with Protonix. DVT prophylaxis with subcu heparin and sequential compression devices. 9. Will follow labs and x-rays daily. 10. Lisinopril 2.5 mg by mouth daily at noon added for afterload reduction. Hold for systolic blood pressure less than 100 mmHg. 11. More recommendations to follow based on patient's clinical course. Time with Patient: Greater than 30
[2018-10-10 11:37] LABS: Glucose,Whole Blood 192 mg/dL (75-99)
[2018-10-10] MEDS: LISINOPRIL 2.5 MG TAB PO SCH (12:34)
[2018-10-10] MEDS ORDERED: MAGNESIUM HYDROXIDE 2,400 MG/10 ML CUP PO PRN (15:20)
--- NOTE | 2018-10-10 15:29 | P.PN ---
Subjective Progress Note Date: 10/10/18 Principal diagnosis: Acute hypoxic respiratory failure secondary to atrial tachycardia and decompensated congestive heart failure This is a 67-year-old gentleman who is followed by Dr. Don on an outpatient basis. He is a past medical history significant for a recent triple-vessel coronary artery bypass grafting surgery with placement of his left internal mammary artery to his left anterior descending coronary artery, a reverse greater saphenous vein graft from the aorta to the first diagonal coronary artery, a reverse greater saphenous vein graft from the aorta to the first obtuse marginal coronary artery, and an elective aortic valve replacement using a #27 mm pericardial bioprosthesis magna ease performed on 09/24/2018. He also has a past medical history significant for hypertension, hyperlipidemia, morbid obesity, previous tobacco dependence, COPD with preoperative FEV1 of 64% of predicted with the patient's course was essentially uncomplicated. The patient was discharged home. The patient presented his primary care physician's office with increased shortness of breath and the patient was found to have tachycardia with a heart rate in the 150, irregular. He was sent into the hospital and the patient was found to be in significant tachycardia with a heart rate of 150. This seems to be an atrial tachycardia. The rhythm is very regular at this poin t in time. May be sinus or supraventricular.. His EKG showed a wide-complex QRS and a bundle-branch block pattern. The patient was started on amiodarone. Blood work was normal. There was some minimal troponin leak. BNP level was 3020. AST and ALT were also elevated at 747 and 624 respectively. The patient is currently on amiodarone drip. Chest x-ray showing cardiomegaly and small left-sided pleural effusion. He is afebrile. He is currently on 5 L of oxygen by nasal cannula and his pulse ox is around 98%. He was already given Lasix 40 mg IV push 1. Cardiology is on consult. Echocardiogram is pending for now. On 10/09/2018 patient seen in follow-up on selective care unit, continues on IV diuretics, diuresing, lung sounds reveal diffuse wheezes throughout, patient is currently is sinus rhythm with a controlled rate, no compressive chest pain, no complaints of worsening shortness of breath, currently on 3 L of oxygen with a pulse ox of 95%, afebrile. Today's labs have been reviewed, and showed the white blood cell count of 14.7, hemoglobin of 8.3, electrolytes are within normal limits, B1 is 29 creatinine is 0.80, AST is 742, ALT is 767, alkaline phosphatase is 287, patient did have mild elevation of troponins this admission, troponin of 0.148, 0.138, 0.137. Blood culture showed no growth, currently on Lasix 40 mg every 12 hours, he is on nebulized medical diabetes, we will add IV Solu-Medrol The patient was seen today 10/10/2018 in follow-up on the selective care unit. He is currently sitting up in a chair at the bedside. Awake and alert in no acute distress. He is breathing easier today as compared to yesterday. He's been up ambulating in the hallway with assistance. He is maintaining O2 saturations in the mid 90s on 2 L/m per nasal cannula. Chest x-ray shows minimal pleural effusions. He's been afebrile. Hemodynamically stable. Blood culture reveals no growth. White count 14.8. Hemoglobin 7.6. Bicarb 34. Creatinine 0.82. AST 216, ALT 476. Alk phos 245. Objective - Vital Signs Vital signs: Vital Signs Temp 98.3 F 10/10/18 08:00 Pulse 72 10/10/18 12:00 Resp 18 10/10/18 12:00 BP 118/72 10/10/18 12:00 Pulse Ox 95 10/10/18 12:00 Intake & Output 10/09/18 10/10/18 10/10/18 18:59 06:59 18:59 Intake Total 480 360 Output Total 566 054 5242 Balance 30 -500 -1715 Weight 119.7 kg Intake: Oral 480 360 Output: Urine 574 718 3933 Other: Voiding Method Toilet Toilet Urinal Urinal Urinal # Voids 2 1 1 - Exam GENERAL EXAM: Alert, pleasant, 67-year-old male, on 2 L of oxygen with a pulse ox of 95% comfortable in no apparent distress. HEAD: Normocephalic/atraumatic. EYES: Normal reaction of pupils, equal size. Conjunctiva pink, sclera white. NOSE: Clear with pink turbinates. THROAT: No erythema or exudates. NECK: No masses, no JVD, no thyroid enlargement, no adenopathy. CHEST: No chest wall deformity. Symmetrical expansion. LUNGS: Equal air entry with diffuse wheezing CVS: Regular rate and rhythm, normal S1 and S2, no gallops, no murmurs, no rubs ABDOMEN: Soft, nontender. No hepatosplenomegaly, normal bowel sounds, no guarding or rigidity. EXTREMITIES: No clubbing, 1+ edema, no cyanosis, 2+ pulses and upper and lower extremities. MUSCULOSKELETAL: Muscle strength and tone normal. SPINE: No scoliosis or deformity SKIN: No rashes CENTRAL NERVOUS SYSTEM: Alert and oriented -3. No focal deficits, tone is normal in all 4 extremities. PSYCHIATRIC: Alert and oriented -3. Appropriate affect. Intact judgment and insight. - Labs CBC & Chem 7: 10/10/18 06:49 10/10/18 06:49 Labs: Abnormal Lab Results - Last 24 Hours (Table) 10/09/18 10/09/18 10/10/18 Range/Units 16:52 20:23 06:20 WBC (3.8-10.6) k/uL RBC (4.30-5.90) m/uL Hgb (13.0-17.5) gm/dL Hct (39.0-53.0) % MCHC (31.0-37.0) g/dL RDW (11.5-15.5) % Plt Count (150-450) k/uL Neutrophils # (1.3-7.7) k/uL Lymphocytes # (1.0-4.8) k/uL Carbon Dioxide (22-30) mmol/L BUN (9-20) mg/dL Glucose (74-99) mg/dL POC Glucose (mg/dL) 136 H 208 H 178 H (75-99) mg/dL Calcium (8.4-10.2) mg/dL Magnesium (1.6-2.3) mg/dL AST (17-59) U/L ALT (21-72) U/L Alkaline Phosphatase (38-126) U/L Total Protein (6.3-8.2) g/dL 10/10/18 10/10/18 10/10/18 Range/Units 06:49 06:49 11:20 WBC 14.8 H (3.8-10.6) k/uL RBC 2.77 L (4.30-5.90) m/uL Hgb 7.6 L (13.0-17.5) gm/dL Hct 26.0 L (39.0-53.0) % MCHC 29.1 L (31.0-37.0) g/dL RDW 16.5 H (11.5-15.5) % Plt Count 484 H (150-450) k/uL Neutrophils # 13.7 H (1.3-7.7) k/uL Lymphocytes # 0.5 L (1.0-4.8) k/uL Carbon Dioxide 34 H (22-30) mmol/L BUN 28 H (9-20) mg/dL Glucose 161 H (74-99) mg/dL POC Glucose (mg/dL) 192 H (75-99) mg/dL Calcium 8.2 L (8.4-10.2) mg/dL Magnesium 2.6 H (1.6-2.3) mg/dL AST 216 H (17-59) U/L ALT 476 H (21-72) U/L Alkaline Phosphatase 245 H (38-126) U/L Total Protein 6.1 L (6.3-8.2) g/dL Microbiology - Last 24 Hours (Table) 10/08/18 12:07 Blood Culture - Preliminary Blood No Growth after 48 hours Assessment and Plan Assessment: Assessment: 1 acute dyspnea/acute hypoxic history failure currently under investigation. Consider atrial tachycardia with secondary decompensated heart failure contributing to this patient shortness of breath 2 acute tachycardia, likely supraventricular/atrial tachycardia versus atrial flutter. Currently on amiodarone for rate control 3 decompensated heart failure secondary to above. The patient has also developed increased lower extremity edema and there is some mild elevation of the proBNP level. 4 troponin leak secondary to above 5 morbid obesity 6 COPD with a baseline FEV1 of 64% of predicted 7 coronary artery disease presents bypass surgery 8 bicuspid aortic valve causing significant/severe aortic stenosis and the patient is status post bioprosthetic aortic valve replacement/aVR along with resection of the atrial appendage. 9 left-sided pleural effusion, post thoracotomy versus reactive to CHF 10 normal LFTs 11 hyperlipidemia 12 hypertension 13 diabetes mellitus 14 normocytic anemia, multifactorial Plan: The patient is seen today by Dr. Cesar. He is improving from the pulmonary standpoint. Chest x-ray reveals a stable small left and trace right pleural effusion with a cardiac airspace disease/atelectasis. He continues to work well with the incentive spirometer. His rate down the FiO2. Continue current treatment plan. Increase his activity as tolerated. We'll continue to follow. I, the cosigning physician, performed a history & physical examination of the patient. Lungs sounds with faint crackles in the bilateral posterior bases. Maintaining good O2 saturations in the 90s on 2 L/m per nasal cannula. I discu ssed the assessment and plan of care with my nurse practitioner, Christine Betancourt. I attest to the above note as dictated by her.
[2018-10-10 17:30] LABS: Glucose,Whole Blood 227 mg/dL (75-99)
[2018-10-10 20:26] LABS: Glucose,Whole Blood 206 mg/dL (75-99)
--- NOTE | 2018-10-10 22:55 | PN ---
PROGRESS NOTE DATE OF SERVICE: 10/10/2018 PRESENTING COMPLAINT: Short of breath. INTERVAL HISTORY: Patient with recent coronary artery bypass and aortic valve replacement presented with shortness of breath, atrial fibrillation, rapid ventricular rate. Patient had been on IV amiodarone. That was discontinued because of elevated liver enzymes. He also received IV Lasix. Edema has gone down. Breathing is a bit better. Patient did walk up out in the hallway. Patient is back into sinus rhythm. The patient is having some drainage from the right leg vein site. It was looked at by from Cardiothoracic, who called back to me, saying that was the regular serosanguineous discharge and does not appear infected. REVIEW OF SYSTEMS: Done for constitutional, cardiovascular, GI, pulmonary; relevant findings as above. CURRENT MEDICATIONS: Reviewed. They include: 1. DuoNeb. 2. Eliquis. 3. IV Lasix. 4. IV Solu-Medrol. PHYSICAL EXAMINATION: Temperature 97.5, pulse 87, respiration 18, blood pressure 109/61, pulse ox 92% on room air. GENERAL APPEARANCE: Sitting up. Awake. Less short of breath. EYES: Pupils equal. Conjunctivae normal. NECK: JVD unable to assess. Mass not palpable. RESPIRATORY: Effort increased. LUNGS: Diminished breath sounds. CARDIOVASCULAR: First and second heart sounds. Decreased edema. ABDOMEN: Soft, nontender. Liver and spleen not palpable. PSYCHIATRY: Alert and oriented x3. Mood and affect normal. INVESTIGATIONS: White count 14.8, hemoglobin 7.6, potassium 4.2, BUN 20, creatinine 0.82. AST 216, ALT 476. ASSESSMENT: 1. Acute on chronic congestive heart failure exacerbation, ejection fraction not known, with clinical improvement. 2. Paroxysmal atrial flutter/fibrillation tachycardia, back in sinus rhythm. 3. Coronary artery disease with recent coronary artery bypass and aortic valve replacement with prosthetic valve. 4. Essential hypertension. 5. Hyperlipidemia. 6. Obesity; body mass index 39.3. 7. Acute hepatitis. Could be ischemic. Patient's Lipitor has been held off. Numbers are coming down. PLAN: Continue current medication and treatment plan. Patient remains on IV Lasix. Given underlying coronary artery disease symptomatology and hemoglobin below 8, will give patient one unit of blood. The patient is already on IV Lasix. MMODL / IJN: [id number] /
[2018-10-11 06:17] LABS: Anisocytosis Slight; HCT 26.5 % (39.0-53.0); HGB 7.8 gm/dL (13.0-17.5); Hypochromasia Marked; MCH 27.6 pg (25.0-35.0); MCHC 29.3 g/dL (31.0-37.0); MCV 94.3 fL (80.0-100.0); Mean Platelet Volume 6.7; Platelet Count 469 k/uL (150-450); Poikilocytosis Moderate; RBC 2.81 m/uL (4.30-5.90); RDW 16.6 % (11.5-15.5)
[2018-10-11 06:32] LABS: Glucose,Whole Blood 258 mg/dL (75-99)
[2018-10-11 06:34] LABS: ALT 352 U/L (21-72); AST 108 U/L (17-59); Albumin 3.3 g/dL (3.5-5.0); Alkaline Phosphatase 219 U/L (38-126); Anion Gap 9 mmol/L; Blood Urea Nitrogen 27 mg/dL (9-20); Calcium 8.9 mg/dL (8.4-10.2); Carbon Dioxide 35 mmol/L (22-30); Chloride 93 mmol/L (98-107); Glucose 266 mg/dL (74-99); Magnesium 2.6 mg/dL (1.6-2.3); Potassium 3.9 mmol/L (3.5-5.1); Sodium 137 mmol/L (137-145); Total Bilirubin 0.9 mg/dL (0.2-1.3)
[2018-10-11] MEDS: INSULIN ASPART (NovoLOG) 100 UNIT/ML VIAL SQ SCH ×2 (06:48→12:42)
[2018-10-11] MEDS: PANTOPRAZOLE 40 MG TABLET PO SCH (06:48)
[2018-10-11] MEDS: metFORMIN 500 MG TAB PO SCH (06:48)
--- NOTE | 2018-10-11 08:34 | P.PN ---
Subjective Progress Note Date: 10/11/18 Principal diagnosis: Atrial tachycardia, acute heart failure with elevated BNP, elevation in transaminases. History of coronary artery disease with left main disease status post triple coronary artery bypass grafting (SNELL to LAD, SVG to Diag1, SVG to OM1), bicuspid aortic valve with moderate to severe aortic stenosis status post bioprosthetic aortic valve replacement (Magna Ease #27mm) with exclusion of the left atrial appendage, postoperative blood loss anemia which is expected given hemodilution and cardiopulmonary bypass pump, hypertension, hyperlipidemia, morbid obesity, previous tobacco dependence with mild COPD. The patient is currently sitting up in the recliner eating breakfast in no acute distress. States his breathing has improved significantly, denies pain. Remains in normal sinus rhythm and hemodynamically stable. Has ambulated in the hallway and taken a shower without difficulty. No new complaints. Objective - Vital Signs Vital signs: Vital Signs Temp 98.2 F 10/11/18 04:00 Pulse 86 10/11/18 04:00 Resp 18 10/11/18 04:00 BP 112/62 10/11/18 04:00 Pulse Ox 91 L 10/11/18 04:00 Intake & Output 10/10/18 10/11/18 10/11/18 18:59 06:59 18:59 Intake Total 620 Output Total 2074 2500 Balance -1455 -2500 Weight 118.4 kg Intake: Oral 620 Output: Urine 2074 2499 Other: Voiding Method Urinal Urinal # Voids 1 # Bowel Movements 1 - Constitutional General appearance: Present: cooperative, no acute distress, obese - Respiratory Details: Lungs sounds diminished bilaterally. Respirations even, nonlabored at rest. Currently on room air with oxygen saturation 91%. Only able to achieve 1000 mL on his incentive spirometry. Strong, productive cough with clear sputum. - Cardiovascular Details: S1, S2 present. Regular rate and rhythm, sinus rhythm on telemetry. Sternum stable. Palpable peripheral pulses bilaterally. 2-3+ bilateral lower extremity edema present. No calf pain or tenderness noted. Antiembolism stockings/kika wraps present. - Gastrointestinal Gastrointestinal Comment(s): Abdomen soft, nontender, nondistended, obese. Active bowel sounds present 4 quadrants. Tolerating diet. Positive large bowel movement last night per nursing. - Genitourinary Genitourinary Comment(s): Continues to void clear, yellow urine. Output 1600 ml in the last 8 hours. - Integumentary Integumentary Comment(s): Skin is warm and dry with evidence of good perfusion. Anterior chest incision well approximated. Right lower extremity EVH site with small amount serosanguineous drainage. - Neurologic Neurologic: Present: CNII-XII intact - Musculoskeletal Musculoskeletal: Present: gait normal, strength equal bilaterally - Psychiatric Psychiatric: Present: A&O x's 3, appropriate affect, intact judgment & insight - Allied health notes Allied health notes reviewed: nursing - Labs CBC & Chem 7: 10/11/18 05:45 10/11/18 05:45 Labs: Abnormal Lab Results - Last 24 Hours (Table) 10/10/18 10/10/18 10/10/18 Range/Units 11:20 17:09 20:23 WBC (3.8-10.6) k/uL RBC (4.30-5.90) m/uL Hgb (13.0-17.5) gm/dL Hct (39.0-53.0) % MCHC (31.0-37.0) g/dL RDW (11.5-15.5) % Plt Count (150-450) k/uL Chloride (98-107) mmol/L Carbon Dioxide (22-30) mmol/L BUN (9-20) mg/dL Glucose (74-99) mg/dL POC Glucose (mg/dL) 192 H 227 H 206 H (75-99) mg/dL Magnesium (1.6-2.3) mg/dL AST (17-59) U/L ALT (21-72) U/L Alkaline Phosphatase (38-126) U/L Total Protein (6.3-8.2) g/dL Albumin (3.5-5.0) g/dL Crossmatch 10/10/18 10/11/18 10/11/18 Range/Units 20:26 05:45 05:45 WBC 14.0 H (3.8-10.6) k/uL RBC 2.81 L (4.30-5.90) m/uL Hgb 7.8 L (13.0-17.5) gm/dL Hct 26.5 L (39.0-53.0) % MCHC 29.3 L (31.0-37.0) g/dL RDW 16.6 H (11.5-15.5) % Plt Count 469 H (150-450) k/uL Chloride 93 L (98-107) mmol/L Carbon Dioxide 35 H (22-30) mmol/L BUN 27 H (9-20) mg/dL Glucose 266 H (74-99) mg/dL POC Glucose (mg/dL) (75-99) mg/dL Magnesium 2.6 H (1.6-2.3) mg/dL AST 108 H (17-59) U/L ALT 352 H (21-72) U/L Alkaline Phosphatase 219 H (38-126) U/L Total Protein 6.0 L (6.3-8.2) g/dL Albumin 3.3 L (3.5-5.0) g/dL Crossmatch See Detail 10/11/18 Range/Units 06:30 WBC (3.8-10.6) k/uL RBC (4.30-5.90) m/uL Hgb (13.0-17.5) gm/dL Hct (39.0-53.0) % MCHC (31.0-37.0) g/dL RDW (11.5-15.5) % Plt Count (150-450) k/uL Chloride (98-107) mmol/L Carbon Dioxide (22-30) mmol/L BUN (9-20) mg/dL Glucose (74-99) mg/dL POC Glucose (mg/dL) 258 H (75-99) mg/dL Magnesium (1.6-2.3) mg/dL AST (17-59) U/L ALT (21-72) U/L Alkaline Phosphatase (38-126) U/L Total Protein (6.3-8.2) g/dL Albumin (3.5-5.0) g/dL Crossmatch Microbiology - Last 24 Hours (Table) 10/08/18 12:07 Blood Culture - Preliminary Blood No Growth after 48 hours Assessment and Plan Assessment: 1. Atrial tachycardia vs. afib on admission, currently in normal sinus rhythm 2. Acute heart failure with elevated BNP 3. Elevation in transaminases, resolving 4. Coronary artery disease with left main disease, status post triple coronary artery bypass grafting 5. Bicuspid aortic valve with moderate to severe aortic stenosis, status post bioprosthetic aortic valve replacement 6. Hypertension 7. Hyperlipidemia 8. Morbid obesity 9. Previous tobacco dependence 10. Mild COPD Plan: 1. Continue aspirin, KIKA inhibitor, beta misbah therapy. Will increase beta misbah therapy as tolerated. Statin discontinued secondary to elevated liver enzymes. 2. Amiodarone discontinued secondary to elevated liver enzymes per cardiology. Continue Eliquis for anticoagulation. 3. Continue Lasix. 4. Bronchodilators, steroids per pulmonology. 5. Encourage incentive spirometry use minimum 10 times every hour while awake. Patient needs aggressive pulmonary management. 6. Increase activity, ambulate in hallway. Shower daily. PT/OT following. 7. Postoperative instructions reinforced. Patient should have legs elevated when not ambulatory. 8. GI prophylaxis with Protonix. DVT prophylaxis with subcu heparin, SCDs. 9. Will follow labs and x-rays. Electrolyte replacement per protocol. NO blood transfusion. 10. Blood sugar management per primary care service. Patient needs tighter blood sugar control, hyperglycemia likely due to steroids. 11. Hopefully will be able to discharge patient soon once pulmonary status has been maximized. Recommend discharge to rehab. 12. More recommendations to follow. Time with Patient: Greater than 30
[2018-10-11] MEDS: IPRATROPIUM-ALBUTEROL 3 ML NEB INHALATION SCH ×2 (08:39→13:03)
[2018-10-11] MEDS: METOPROLOL TARTRATE 50 MG TAB PO SCH (09:04)
[2018-10-11] MEDS: APIXABAN 5 MG TAB PO SCH (09:04)
[2018-10-11] MEDS: ASPIRIN 81 MG PO SCH (09:04)
[2018-10-11] MEDS: FUROSEMIDE 10 MG/ML 4 ML VIAL IV SCH (09:05)
[2018-10-11] MEDS: methylPREDNISolone SOD SUCCI 125 MG/2 ML VIAL IV SCH (09:05)
[2018-10-11] MEDS: SENNOSIDES 8.6 MG TAB PO SCH (09:06)
[2018-10-11 11:57] LABS: Glucose,Whole Blood 153 mg/dL (75-99)
[2018-10-11] MEDS: LISINOPRIL 2.5 MG TAB PO SCH (12:42)
--- NOTE | 2018-10-11 13:09 | P.PN ---
Subjective Progress Note Date: 10/11/18 This is a pleasant 67-year-old gentleman with history of recent coronary artery bypass grafting surgery and aortic valve replacement. Patient underwent placement of a SNELL to the LAD, reverse saphenous vein graft from the aorta to the first diagonal, reverse saphenous vein graft to the first obtuse marginal and elective aortic valve replacement using a 27 mm pericardial bioprosthesis, surgery was performed on September 24. Patient also has documented history of hypertension, hyperlipidemia, morbid obesity, prior nicotine use, COPD. Patient went to see his primary care doctor yesterday, had been complaining of feeling more short of breath, as well as noticing his heart rate to be fast. An EKG was performed and patient was recommended to come to the hospital for admission. Chest x-ray on admission here showed minimal basilar subsegmental atelectasis, cardiomegaly and post surgical change. No pulmonary vascular congestion. Subsequent chest x-ray showed small pleural effusions, left greater than right basilar atelectasis. EKG on admission here showed wide complex tachycardia, possible atrial flutter. He was initiated on IV amiodarone in the emergency room, and converted this morning to normal sinus rhythm. Continues to be in normal sinus rhythm at the time of my examination. Was initiated on oral amiodarone this morning. Blood pressure this morning 150/90 with a heart rate in the 70s, 95% on 3 L of oxygen. White blood cell count on admission 10.4, 14.7 this morning. Hemoglobin on admission 7.9, 8.3 this morning. Platelet count 601. Sodium 136, potassium 4.3, BUN 29 and creatinine 0.9. Total bilirubin 1.6 on admission, 1.4 this morning. AST 747. ALT 666. Alk phos 287. Troponin 0.14, 0.13, 0.13. BNP level 3020. At the time of my examination this morning, patient is sitting up in his chair at bedside, he states when he tries to lay back even a little he becomes quite short of breath. He does have bilateral peripheral edema noted. His current medications include amiodarone 400 mg by mouth twice a day, aspirin 325 mg daily, Plavix 75 mg daily, Lasix 40 by mouth daily, metformin, prednisone was given in the emergency room, metoprolol 50 mg 3 times a day and Protonix. He has been started on subcu heparin at every 8 hourly. 10/11/2018 Patient was seen and examined this morning, continues to be in a normal sinus rhythm. LFTs continued to improve. Blood pressure this morning 125/60. Objective - Vital Signs Vital signs: Vital Signs Temp 97.9 F 10/11/18 08:00 Pulse 88 10/11/18 08:55 Resp 18 10/11/18 08:00 BP 125/67 10/11/18 08:00 Pulse Ox 92 L 10/11/18 08:41 Intake & Output 10/10/18 10/11/18 10/11/18 18:59 06:59 18:59 Intake Total 620 180 Output Total 2074 2500 Balance -1455 -2500 180 Weight 118.4 kg Intake: Oral 620 180 Output: Urine 2074 2499 Other: Voiding Method Urinal Urinal Urinal # Voids 1 # Bowel Movements 1 - Exam PHYSICAL EXAMINATION: GENERAL: 67-year-old gentleman in no acute distress at the time HEENT: Head is atraumatic, normocephalic. Pupils equal, round. Sclera anicteric. Conjunctiva are clear. Mucous membranes of the mouth are moist. Neck is supple. There is no elevated jugular venous pressure. No carotid br uit is heard. HEART EXAMINATION: Heart S1, S2 normal. No murmur or gallop heard. CHEST EXAMINATION: Lungs reveal scattered coarse wheezing throughout with mild diminished air entry to the bases posteriorly. ABDOMEN: Soft, obese, nontender. Bowel sounds are heard. No organomegaly noted. EXTREMITIES: 2+ peripheral pulses with 1+ evidence of peripheral edema , bilateral SUZIE hose in place . NEUROLOGIC patient is awake, alert and oriented 3 . - Labs CBC & Chem 7: 10/11/18 05:45 10/11/18 05:45 Labs: Abnormal Lab Results - Last 24 Hours (Table) 10/10/18 10/10/18 10/10/18 Range/Units 17:09 20:23 20:26 WBC (3.8-10.6) k/uL RBC (4.30-5.90) m/uL Hgb (13.0-17.5) gm/dL Hct (39.0-53.0) % MCHC (31.0-37.0) g/dL RDW (11.5-15.5) % Plt Count (150-450) k/uL Chloride (98-107) mmol/L Carbon Dioxide (22-30) mmol/L BUN (9-20) mg/dL Glucose (74-99) mg/dL POC Glucose (mg/dL) 227 H 206 H (75-99) mg/dL Magnesium (1.6-2.3) mg/dL AST (17-59) U/L ALT (21-72) U/L Alkaline Phosphatase (38-126) U/L Total Protein (6.3-8.2) g/dL Albumin (3.5-5.0) g/dL Crossmatch See Detail 10/11/18 10/11/18 10/11/18 Range/Units 05:45 05:45 06:30 WBC 14.0 H (3.8-10.6) k/uL RBC 2.81 L (4.30-5.90) m/uL Hgb 7.8 L (13.0-17.5) gm/dL Hct 26.5 L (39.0-53.0) % MCHC 29.3 L (31.0-37.0) g/dL RDW 16.6 H (11.5-15.5) % Plt Count 469 H (150-450) k/uL Chloride 93 L (98-107) mmol/L Carbon Dioxide 35 H (22-30) mmol/L BUN 27 H (9-20) mg/dL Glucose 266 H (74-99) mg/dL POC Glucose (mg/dL) 258 H (75-99) mg/dL Magnesium 2.6 H (1.6-2.3) mg/dL AST 108 H (17-59) U/L ALT 352 H (21-72) U/L Alkaline Phosphatase 219 H (38-126) U/L Total Protein 6.0 L (6.3-8.2) g/dL Albumin 3.3 L (3.5-5.0) g/dL Crossmatch 10/11/18 Range/Units 11:37 WBC (3.8-10.6) k/uL RBC (4.30-5.90) m/uL Hgb (13.0-17.5) gm/dL Hct (39.0-53.0) % MCHC (31.0-37.0) g/dL RDW (11.5-15.5) % Plt Count (150-450) k/uL Chloride (98-107) mmol/L Carbon Dioxide (22-30) mmol/L BUN (9-20) mg/dL Glucose (74-99) mg/dL POC Glucose (mg/dL) 153 H (75-99) mg/dL Magnesium (1.6-2.3) mg/dL AST (17-59) U/L ALT (21-72) U/L Alkaline Phosphatase (38-126) U/L Total Protein (6.3-8.2) g/dL Albumin (3.5-5.0) g/dL Crossmatch Microbiology - Last 24 Hours (Table) 10/08/18 12:07 Blood Culture - Preliminary Blood No Growth after 48 hours Assessment and Plan Plan: Assessment and plan #1 atrial flutter with a rapid ventricular response #2 congestive heart failure, diastolic, acute on chronic, secondary to a a flutter with rapid ventricular response #3 recent aortic valve replacement and coronary artery bypass grafting surgery 3 #4 hypertension #5 hyperlipidemia #6 prior history of smoking #7 COPD #8 anemia #9 abnormal liver function, could be secondary to congestion, patient had also been on Lipitor, which is currently on hold. #10 low-grade temperature with mild abnormality in white blood cell count Plan From cardiology's perspective, patient may be able to be discharged once cleared by primary. We'll make him a follow-up appointment with Dr. Leach in the office post discharge. DNP note has been reviewed, I agree with a documented findings and plan of care. Patient was seen and examined.
[2018-10-11 13:30] VITALS: BP 121/78; PULSE 92; TEMP 98
--- NOTE | 2018-10-11 14:53 | DS ---
DISCHARGE SUMMARY DATE OF ADMISSION: 10/08/2018 DATE OF DISCHARGE: 10/11/2018 FINAL DIAGNOSES: 1. Acute on chronic congestive heart failure exacerbation from probably diastolic dysfunction. Ejection fraction was difficult to calculate per ejection fraction because of atrial fibrillation. 2. Atrial flutter fibrillation, uncontrolled on presentation. 3. Coronary artery disease with recent history of coronary artery bypass and aortic valve replacement, prosthetic valve. 4. Essential hypertension. 5. Hyperlipidemia. 6. Obesity; body mass index 39.3. 7. Acute hepatitis could be ischemic. Patient's Lipitor currently has been held off. HOSPITAL COURSE: This patient recently underwent coronary bypass and aortic valve replacement with a prosthetic valve, presented with congestive heart failure, atrial flutter fibrillation rapid ventricular rate. Medications were adjusted. Heart rate is better controlled. CHF is better. Patient had a wound on the right lower extremity, not felt to be infected per Cardiothoracic who reviewed the case. This is where the vein was harvested from. Patient is up and about in the hallway, doing overall much better. PHYSICAL EXAMINATION: Temperature 98, pulse 92, respiration 18, blood pressure 120/78, pulse ox 93% on room air. LUNGS: Fair entry. CARDIOVASCULAR: Heart sounds irregular. Some edema is present. Dressing on the lower extremity with Gerry wrap. INVESTIGATIONS: White count 14, hemoglobin 7.8, potassium 3.9. AST 108, ALT 352. Accu-Cheks are noted. CONSULTATION: 1. Dr. Cesar from Pulmonary. 2. Dr. Marii Van from Cardiology. 3. Cardiothoracic labs team. Discussion and discharge planning more than 35 minutes. DISCHARGE MEDICATIONS: 1. Vitamin D3 two thousand units p.o. daily. 2. Glucophage 500 mg p.o. b.i.d. 3. Tylenol 650 mg q.6 p.r.n. 4. Eliquis 5 mg p.o. b.i.d. 5. Aspirin 81 mg p.o. daily. 6. Lasix 40 mg p.o. b.i.d. 7. DuoNeb t.i.d. 8. Zestril 2.5 p.o. daily. 9. Milk of magnesia mg p.r.n. 10.Lopressor 100 mg p.o. b.i.d. 11.Nitrostat 0.4 sublingual q.5 p.r.n. 12.Protonix 40 mg before breakfast. 13.Senokot 8.6 mg p.o. daily. 14.Prednisone taper. DISPOSITION: [facility]. FOLLOWUP: Follow up with Dr. Don at [facility]. Follow up with Dr. Holland in 1 week. Follow up with Dr. Enriquez on 11/01/2018. Follow with Dr. Leach on 10/14/2018. Leg Gerry wraps and leg dressing is to continue as per Cardiothoracic Surgery. MMODL / IJN: [id number] /
--- NOTE | 2018-10-11 16:16 | P.PN ---
Subjective Progress Note Date: 10/11/18 Principal diagnosis: Acute hypoxic respiratory failure secondary to atrial tachycardia and decompensated congestive heart failure This is a 67-year-old gentleman who is followed by Dr. Don on an outpatient basis. He is a past medical history significant for a recent triple-vessel coronary artery bypass grafting surgery with placement of his left internal mammary artery to his left anterior descending coronary artery, a reverse greater saphenous vein graft from the aorta to the first diagonal coronary artery, a reverse greater saphenous vein graft from the aorta to the first obtuse marginal coronary artery, and an elective aortic valve replacement using a #27 mm pericardial bioprosthesis magna ease performed on 09/24/2018. He also has a past medical history significant for hypertension, hyperlipidemia, morbid obesity, previous tobacco dependence, COPD with preoperative FEV1 of 64% of predicted with the patient's course was essentially uncomplicated. The patient was discharged home. The patient presented his primary care physician's office with increased shortness of breath and the patient was found to have tachycardia with a heart rate in the 150, irregular. He was sent into the hospital and the patient was found to be in significant tachycardia with a heart rate of 150. This seems to be an atrial tachycardia. The rhythm is very regular at this poin t in time. May be sinus or supraventricular.. His EKG showed a wide-complex QRS and a bundle-branch block pattern. The patient was started on amiodarone. Blood work was normal. There was some minimal troponin leak. BNP level was 3020. AST and ALT were also elevated at 747 and 624 respectively. The patient is currently on amiodarone drip. Chest x-ray showing cardiomegaly and small left-sided pleural effusion. He is afebrile. He is currently on 5 L of oxygen by nasal cannula and his pulse ox is around 98%. He was already given Lasix 40 mg IV push 1. Cardiology is on consult. Echocardiogram is pending for now. On 10/09/2018 patient seen in follow-up on selective care unit, continues on IV diuretics, diuresing, lung sounds reveal diffuse wheezes throughout, patient is currently is sinus rhythm with a controlled rate, no compressive chest pain, no complaints of worsening shortness of breath, currently on 3 L of oxygen with a pulse ox of 95%, afebrile. Today's labs have been reviewed, and showed the white blood cell count of 14.7, hemoglobin of 8.3, electrolytes are within normal limits, B1 is 29 creatinine is 0.80, AST is 742, ALT is 767, alkaline phosphatase is 287, patient did have mild elevation of troponins this admission, troponin of 0.148, 0.138, 0.137. Blood culture showed no growth, currently on Lasix 40 mg every 12 hours, he is on nebulized medical diabetes, we will add IV Solu-Medrol The patient was seen today 10/10/2018 in follow-up on the selective care unit. He is currently sitting up in a chair at the bedside. Awake and alert in no acute distress. He is breathing easier today as compared to yesterday. He's been up ambulating in the hallway with assistance. He is maintaining O2 saturations in the mid 90s on 2 L/m per nasal cannula. Chest x-ray shows minimal pleural effusions. He's been afebrile. Hemodynamically stable. Blood culture reveals no growth. White count 14.8. Hemoglobin 7.6. Bicarb 34. Creatinine 0.82. AST 216, ALT 476. Alk phos 245. Patient is seen today 10/11/2018 in follow-up on the selective care unit. He is awake and alert in no acute distress. He states his breathing is nearly back to his baseline. He is sitting up in a chair at the bedside. Maintaining good O2 saturations in the 90s on room air. He's been afebrile. Hemodynamically stable. Blood culture reveals no growth. White count 14.0. Hemoglobin 7.8. Creatinine 0.81. AST 108, ALT 352, alk phos 219. He remains on IV diuretics, bronchodilators, IV Solu-Medrol. Objective - Vital Signs Vital signs: Vital Signs Temp 98.0 F 10/11/18 12:00 Pulse 88 10/11/18 13:18 Resp 18 10/11/18 12:00 BP 121/78 10/11/18 12:00 Pulse Ox 93 L 10/11/18 12:00 Intake & Output 10/10/18 10/11/18 10/11/18 18:59 06:59 18:59 Intake Total 620 180 Output Total 2074 2500 175 Balance -1455 -2500 5 Weight 118.4 kg Intake: Oral 620 180 Output: Urine 2075 2500 175 Other: Voiding Method Urinal Urinal Urinal # Voids 1 # Bowel Movements 1 - Exam GENERAL EXAM: Alert, pleasant, 67-year-old male, on room air with a pulse ox of 93% comfortable in no apparent distress. HEAD: Normocephalic/atraumatic. EYES: Normal reaction of pupils, equal size. Conjunctiva pink, sclera white. NOSE: Clear with pink turbinates. THROAT: No erythema or exudates. NECK: No masses, no JVD, no thyroid enlargement, no adenopathy. CHEST: No chest wall deformity. Symmetrical expansion. LUNGS: Equal air entry with diffuse wheezing CVS: Regular rate and rhythm, normal S1 and S2, no gallops, no murmurs, no rubs ABDOMEN: Soft, nontender. No hepatosplenomegaly, normal bowel sounds, no guarding or rigidity. EXTREMITIES: No clubbing, 1+ edema, no cyanosis, 2+ pulses and upper and lower extremities. MUSCULOSKELETAL: Muscle strength and tone normal. SPINE: No scoliosis or deformity SKIN: No rashes CENTRAL NERVOUS SYSTEM: Alert and oriented -3. No focal deficits, tone is normal in all 4 extremities. PSYCHIATRIC: Alert and oriented -3. Appropriate affect. Intact judgment and insight. - Labs CBC & Chem 7: 10/11/18 05:45 10/11/18 05:45 Labs: Abnormal Lab Results - Last 24 Hours (Table) 10/10/18 10/10/18 10/10/18 Range/Units 17:09 20:23 20:26 WBC (3.8-10.6) k/uL RBC (4.30-5.90) m/uL Hgb (13.0-17.5) gm/dL Hct (39.0-53.0) % MCHC (31.0-37.0) g/dL RDW (11.5-15.5) % Plt Count (150-450) k/uL Chloride (98-107) mmol/L Carbon Dioxide (22-30) mmol/L BUN (9-20) mg/dL Glucose (74-99) mg/dL POC Glucose (mg/dL) 227 H 206 H (75-99) mg/dL Magnesium (1.6-2.3) mg/dL AST (17-59) U/L ALT (21-72) U/L Alkaline Phosphatase (38-126) U/L Total Protein (6.3-8.2) g/dL Albumin (3.5-5.0) g/dL Crossmatch See Detail 10/11/18 10/11/18 10/11/18 Range/Units 05:45 05:45 06:30 WBC 14.0 H (3.8-10.6) k/uL RBC 2.81 L (4.30-5.90) m/uL Hgb 7.8 L (13.0-17.5) gm/dL Hct 26.5 L (39.0-53.0) % MCHC 29.3 L (31.0-37.0) g/dL RDW 16.6 H (11.5-15.5) % Plt Count 469 H (150-450) k/uL Chloride 93 L (98-107) mmol/L Carbon Dioxide 35 H (22-30) mmol/L BUN 27 H (9-20) mg/dL Glucose 266 H (74-99) mg/dL POC Glucose (mg/dL) 258 H (75-99) mg/dL Magnesium 2.6 H (1.6-2.3) mg/dL AST 108 H (17-59) U/L ALT 352 H (21-72) U/L Alkaline Phosphatase 219 H (38-126) U/L Total Protein 6.0 L (6.3-8.2) g/dL Albumin 3.3 L (3.5-5.0) g/dL Crossmatch 10/11/18 Range/Units 11:37 WBC (3.8-10.6) k/uL RBC (4.30-5.90) m/uL Hgb (13.0-17.5) gm/dL Hct (39.0-53.0) % MCHC (31.0-37.0) g/dL RDW (11.5-15.5) % Plt Count (150-450) k/uL Chloride (98-107) mmol/L Carbon Dioxide (22-30) mmol/L BUN (9-20) mg/dL Glucose (74-99) mg/dL POC Glucose (mg/dL) 153 H (75-99) mg/dL Magnesium (1.6-2.3) mg/dL AST (17-59) U/L ALT (21-72) U/L Alkaline Phosphatase (38-126) U/L Total Protein (6.3-8.2) g/dL Albumin (3.5-5.0) g/dL Crossmatch Microbiology - Last 24 Hours (Table) 10/08/18 12:07 Blood Culture - Preliminary Blood No Growth after 72 hours Assessment and Plan Assessment: Assessment: 1 acute dyspnea/acute hypoxic history failure currently under investigation. Consider atrial tachycardia with secondary decompensated heart failure contributing to this patient shortness of breath 2 acute tachycardia, likely supraventricular/atrial tachycardia versus atrial flutter. Currently on amiodarone for rate control 3 decompensated heart failure secondary to above. The patient has also developed increased lower extremity edema and there is some mild elevation of the proBNP level. 4 troponin leak secondary to above 5 morbid obesity 6 COPD with a baseline FEV1 of 64% of predicted 7 coronary artery disease presents bypass surgery 8 bicuspid aortic valve causing significant/severe aortic stenosis and the patient is status post bioprosthetic aortic valve replacement/aVR along with resection of the atrial appendage. 9 left-sided pleural effusion, post thoracotomy versus reactive to CHF 10 normal LFTs 11 hyperlipidemia 12 hypertension 13 diabetes mellitus 14 normocytic anemia, multifactorial Plan: The patient is seen today by Dr. Cesar. He is improving from the pulmonary standpoint. Current on room air. He continues to work well with the incentive spirometer. Increase his activity as tolerated. We'll continue to follow. I, the cosigning physician, performed a history & physical examination of the patient. Lungs sounds with faint crackles in the bilateral posterior bases. Maintaining good O2 saturations in the 90s on 2 L/m per nasal cannula. I discussed the assessment and plan of care with my nurse practitioner, Christine Betancourt. I attest to the above note as dictated by her.
== END 2018-10-11 16:05 | DRG 308 ==
LOC: EC 11:07 → 3SCARD 14:49 → OBSVTOIN 10-09 09:34
PROVIDERS: ADMIT Hospitalist; ATTEND Hospitalist
DX: I48.0 Paroxysmal atrial fibrillation (principal); J96.01 Acute respiratory failure with hypoxia; I50.33 Acute on chronic diastolic (congestive) heart failure; D62 Acute posthemorrhagic anemia; J98.11 Atelectasis; Z68.41 Body mass index [BMI] 40.0-44.9, adult; I11.0 Hypertensive heart disease with heart failure; I48.92 Unspecified atrial flutter; E66.01 Morbid (severe) obesity due to excess calories; J44.9 Chronic obstructive pulmonary disease, unspecified; K75.89 Other specified inflammatory liver diseases; E11.9 Type 2 diabetes mellitus without complications; E78.5 Hyperlipidemia, unspecified; F17.201 Nicotine dependence, unspecified, in remission; I25.10 Atherosclerotic heart disease of native coronary artery without angina pectoris; I45.10 Unspecified right bundle-branch block; K59.00 Constipation, unspecified; Z79.02 Long term (current) use of antithrombotics/antiplatelets; Z79.82 Long term (current) use of aspirin; Z79.84 Long term (current) use of oral hypoglycemic drugs; Z79.899 Other long term (current) drug therapy; Z95.3 Presence of xenogenic heart valve; Z95.1 Presence of aortocoronary bypass graft; Z80.1 Family history of malignant neoplasm of trachea, bronchus and lung
CPT/HCPCS: 36415; 71046; 76705; 80053; 80076; 83036; 83735; 83880; 84443; 84484; 85025; 85027; 85610; 85730; 86850; 86900; 86901; 86920; 87040; 93005; 93306; 94640; 94760; 96365; 96366; 96375; 99291

== ENCOUNTER 2018-10-14 12:27 | Inpatient (IN) | payer MEDICARE ==
[2018-10-14] MEDS ORDERED: RX INFO: IV CONTRAST WAS GIVEN 1 EACH MISC MISCELLANE PRN (12:38)
[2018-10-14 13:44] LABS: Anisocytosis Slight; Basophils % (A) 0 %; Eosinophils # (A) 0.1 k/uL (0-0.7); Eosinophils % (A) 0 %; HCT 27.4 % (39.0-53.0); HGB 8.2 gm/dL (13.0-17.5); Hypochromasia Marked; Lymphocytes # (A) 0.4 k/uL (1.0-4.8); Lymphocytes % (A) 3 %; MCH 27.4 pg (25.0-35.0); MCV 91.6 fL (80.0-100.0); Mean Platelet Volume 7.2; Monocytes # (A) 0.3 k/uL (0-1.0); Monocytes % (A) 2 %; Neutrophils # (A) 10.6 k/uL (1.3-7.7); Neutrophils % (A) 93 %; Platelet Count 446 k/uL (150-450); Poikilocytosis Moderate; RDW 16.8 % (11.5-15.5); WBC 11.4 k/uL (3.8-10.6)
[2018-10-14 13:48] LABS: INR 1.2 (<1.2); Partial Thromboplastin Time 23.8 sec (22.0-30.0); Prothrombin Time 12.4 sec (9.0-12.0)
[2018-10-14 13:55] LABS: C Reactive Protein 32.1 mg/L (<10.0); Magnesium 2.4 mg/dL (1.6-2.3)
[2018-10-14 14:07] LABS: Potassium 4.6 mmol/L (3.5-5.1)
[2018-10-14 14:41] LABS: Erythrocyte Sedimentation Rate 76 mm/hr (0-15)
--- NOTE | 2018-10-14 15:01 | CT ---
EXAMINATION TYPE: CT chest w con DATE OF EXAM: 10/14/2018 COMPARISON: None HISTORY: Open heart surgery 1 month ago. Infection, drainage. CT DLP: 641.1 mGycm, Automated exposure control for dose reduction was used. CONTRAST: Performed injected with 100 mL of Isovue 300. TECHNIQUE: Axial images were obtained at 5 mm thick sections. Reconstructed images are reviewed on [employer] computer in the coronal plane. FINDINGS: Portion of the thyroid visualized is normal. There is diastases of the lower sternotomy. At the lower sternum some wires appear to transverse the sternotomy line. Inferior to the sternum is a density which extends through the inferior sternum towa rds the skin surface. This goes into the anterior mediastinum and appears to be just above the diaphr agm in the lower anterior mediastinum. This abuts the pericardium. Abscess should be considered. This measures approximately 5.9 AP x 3.0 transverse cm in the subcutaneous tissues and 1.8 AP by 6.7 cm t ransverse in the anterior mediastinum. There is some tracking of fluid adjacent to the ascending aorta which may be in the pericardial sac. Moderate pericardial fluid is present. Hemorrhage should be considered. No suspicious lung nodules or focal infiltrates are present. There is some minimal atelectasis in the posterior right lung base. Some streak atelectasis at the bilateral mid lungs. Small left pleural ef fusion is present. There is a 1.1 cm lymph node in the pretracheal space. The ascending aorta diameter at the level of the main pulmonary artery is 3.2 cm. The main pulmonary artery diameter at the bifurcation is 2.[address] sections are obtained through the upper abdomen. Abdomen is essentially unremarkable. IMPRESSIONS: 1. Fluid collection subcutaneous tissues extending to the sternotomy line inferiorly into the anterio r mediastinum. Correlate for abscess and hemorrhage. 2. Diastases of the sternotomy line. 3. Moderate pericardial effusion. Consider hemorrhage within the differential. 4. Small left pleural fluid collection. Consider hemorrhage within the differential. Empyema is consi dered less likely. 5. Report was called to Dr. Meeks by Dr. Rajput by telephone at 1455 hours 10/14/2018.
[2018-10-14] MEDS ORDERED: VANCOMYCIN 1,000 MG in SODIUM CHLORIDE 0.9% 250 ML IVPB STA (16:03)
[2018-10-14] MEDS ORDERED: NALOXONE 0.4 MG/ML 1 ML VIAL IV PRN (16:06)
--- NOTE | 2018-10-14 16:06 | ED ---
General Adult HPI - General Chief complaint: Shortness of Breath Stated complaint: post op complications Time Seen by Provider: 10/14/18 12:34 Source: patient Mode of arrival: EMS Limitations: no limitations - History of Present Illness Initial comments: The patient is a 67-year-old male who presents to the emergency department with complaint of drainage from his sternal wound. The patient had a CABG and aortic valve replacement done on September 24. He was sent to rehab. States that today it was noted that the patient did have increased drainage from his sternal wound. It is pink serosanguineous in color with some blood. Denies pustular drainage. Patient has not had any previous output from his wound. He denies any chest pain or difficulty breathing. Does admit to exertional dyspnea which has been present since his procedure. He denies fevers or chills. Also admits to some mild drainage coming from the harvest site on his right medial calf. He denies any nausea or vomiting. No abdominal pain. - Related Data Home Medications Medication Instructions Recorded Confirmed Cholecalciferol [Vitamin D3] 2,000 unit PO DAILY@0900 08/12/18 10/14/18 Acetaminophen Tab [Tylenol] 650 mg PO Q6HR PRN 10/08/18 10/14/18 Apixaban [Eliquis] 5 mg PO BID@0900,209910/14/18 10/14/18 Aspirin 81 mg PO DAILY@0900 10/14/18 10/14/18 Furosemide [Lasix] 40 mg PO BID@0600,1400 10/14/18 10/14/18 Ipratropium-Albuterol Nebulize 3 ml INHALATION RT-Q8H 10/14/18 10/14/18 [Duoneb 0.5 mg-3 mg/3 ml Soln] Lisinopril [Zestril] 2.5 mg PO BID@1200,1400 10/14/18 10/14/18 Metoprolol Tartrate [Lopressor] 100 mg PO BID@0900,209910/14/18 10/14/18 Pantoprazole [Protonix] 40 mg PO AC-BRKFST@0600 10/14/18 10/14/18 Sennosides [Senokot] 8.6 mg PO DAILY@0900 10/14/18 10/14/18 metFORMIN HCL [Glucophage] 500 mg PO BID@0900,1700 10/14/18 10/14/18 predniSONE See Taper PO DAILY 10/14/18 10/14/18 Previous Rx's Medication Instructions Recorded Nitroglycerin Sl Tabs [Nitrostat] 0.4 mg SUBLINGUAL Q5M PRN tab 10/11/18 Allergies Allergy/AdvReac Type Severity Reaction Status Date / Time No Known Allergies Allergy Verified 10/14/18 12:42 Review of Systems ROS Statement: Those systems with pertinent positive or pertinent negative responses have been documented in the HPI. ROS Other: All systems not noted in ROS Statement are negative. Past Medical History Past Medical History: Coronary Artery Disease (CAD), COPD, Hyperlipidemia, Hypertension Additional Past Medical History / Comment(s): Coronary artery disease and previous history of Bicuspid aortic valve with moderate to severe aortic valve stenosis with a peak gradient of 60 mmHg and a mean gradient of 30 mmHg across the aortic valve and moderate aortic valve regurgitation. The patient underwent coronary artery bypass surgery and aortic valve replacement with a prosthetic valve, Morbid obesity with a BMI of 42.9 kg/m, COPD, hyperlipidemia, hypertension, diabetes mellitus History of Any Multi-Drug Resistant Organisms: None Reported Past Surgical History: Cardiac Valve Replacement, Coronary Bypass/CABG, Heart Catheterization, Orthopedic Surgery Additional Past Surgical History / Comment(s): ORIF LEFT ANKLE, LACERATION REPAIR OF LEFT FOREARM,RT BREAST I&D, on 09/24/2018 patient underwent a triple- vessel coronary artery bypass grafting using the left internal mammary artery to left anterior setting coronary artery, a reverse greater saphenous vein graft from the aorta to the first diagonal coronary artery, a reverse greater saphenous vein graft from the aorta to the first obtuse marginal coronary artery, and aortic valve replacement using a #27 mm pericardial bioprosthesis magna ease and exclusion of his left atrial appendage using a 40 mm Atriclip. Past Anesthesia/Blood Transfusion Reactions: No Reported Reaction Additional Past Anesthesia/Blood Transfusion Reaction / Comment(s): hx no blood transfusion Past Psychological History: No Psychological Hx Reported Smoking Status: Former smoker - Past Family History Mother Family Medical History: Cancer Additional Family Medical History / Comment(s): LUNG CANCER Father Family Medical History: No Reported History General Exam Limitations: no limitations General appearance: alert, in no apparent distress Head exam: Present: atraumatic, normocephalic, normal inspection Eye exam: Present: normal appearance, PERRL, EOMI. Absent: scleral icterus, conjunctival injection, periorbital swelling ENT exam: Present: normal exam, mucous membranes moist Neck exam: Present: normal inspection. Absent: tenderness, meningismus, lym phadenopathy Respiratory exam: Present: normal lung sounds bilaterally, chest wall tenderness, other (The patient's sternotomy site is inspected and does reveal a pinpoint area of drainage. There appears to be bright red blood coming from the site. There is no surrounding cellulitic changes.). Absent: respiratory distress, wheezes, rales, rhonchi, stridor Cardiovascular Exam: Present: regular rate, normal rhythm, normal heart sounds. Absent: rubs, gallop, clicks GI/Abdominal exam: Present: soft, normal bowel sounds. Absent: distended, tenderness, guarding, rebound, rigid Extremities exam: Present: normal inspection, full ROM, normal capillary refill, pedal edema, other (There is a bandage placed over the patient's graft site on his right medial calf. There is no notable drainage at this time). Absent: tenderness, joint swelling, calf tenderness Back exam: Present: normal inspection Neurological exam: Present: alert, oriented X3, CN II-XII intact Psychiatric exam: Present: normal affect, normal mood Skin exam: Present: warm, dry, intact, normal color. Absent: rash Course Vital Signs 10/14/18 10/14/18 10/14/18 12:36 14:44 15:08 Temperature 98.6 F Pulse Rate 76 76 78 Respiratory 18 16 18 Rate Blood Pressure 107/65 107/65 107/50 O2 Sat by Pulse 98 97 97 Oximetry 10/14/18 19:23 Temperature Pulse Rate 113 H Respiratory 18 Rate Blood Pressure 125/84 O2 Sat by Pulse 97 Oximetry Medical Decision Making - Medical Decision Making Patient is here by myself. He was placed into room 1. He is hooked up to continuous pulse ox and cardiac monitoring. A 12-lead EKG was performed which demonstrates no signs of ST segment elevation or depression. IV access was established. The patient was given a 500 mL fluid bolus. I did recommend laboratory studies. A portal chest x-ray is performed. The patient is then sent for a CT of his thorax with contrast. I did discuss the case with the radiologist on-call. He does inform me of a large fluid collection near the patient's sternotomy site with diastases concerning for abscess versus hemorrhage. I did call and discuss the case with the cardiothoracic's nurse practitioner. He does present to the emergency department and evaluates the patient. He does agree to blood cultures and initiation of Unasyn and Vanco. The patient will be admitted to the service of Dr. Sexton. Consult was placed for Dr. Enriquez. The patient will be made NPO after midnight for surgical repair tomorrow. The patient remained in stable condition was transported to floor. - Lab Data Result diagrams: 10/14/18 13:20 10/14/18 13:20 Lab Results 10/14/18 10/14/18 10/14/18 Range/Units 13:20 13:20 13:20 WBC 11.4 H (3.8-10.6) k/uL RBC 3.00 L (4.30-5.90) m/uL Hgb 8.2 L (13.0-17.5) gm/dL Hct 27.4 L (39.0-53.0) % MCV 91.6 (80.0-100.0) fL MCH 27.4 (25.0-35.0) pg MCHC 30.0 L (31.0-37.0) g/dL RDW 16.8 H (11.5-15.5) % Plt Count 446 (150-450) k/uL Neutrophils % 93 % Lymphocytes % 3 % Monocytes % 2 % Eosinophils % 0 % Basophils % 0 % Neutrophils # 10.6 H (1.3-7.7) k/uL Lymphocytes # 0.4 L (1.0-4.8) k/uL Monocytes # 0.3 (0-1.0) k/uL Eosinophils # 0.1 (0-0.7) k/uL Basophils # 0.0 (0-0.2) k/uL Hypochromasia Marked Poikilocytosis Moderate Anisocytosis Slight ESR 76 H (0-15) mm/hr PT (9.0-12.0) sec INR (<1.2) APTT (22.0-30.0) sec Sodium 138 (137-145) mmol/L Potassium 4.6 (3.5-5.1) mmol/L Chloride 90 L (98-107) mmol/L Carbon Dioxide 36 H (22-30) mmol/L Anion Gap 12 mmol/L BUN 50 H (9-20) mg/dL Creatinine 1.05 (0.66-1.25) mg/dL Est GFR (CKD-EPI)AfAm 86 (>60 ml/min/1.73 sqM) Est GFR (CKD-EPI)NonAf 74 (>60 ml/min/1.73 sqM) Glucose 145 H (74-99) mg/dL Calcium 9.0 (8.4-10.2) mg/dL Magnesium 2.4 H (1.6-2.3) mg/dL Troponin I (0.000-0.034) ng/mL C-Reactive Protein 32.1 H (<10.0) mg/L NT-Pro-B Natriuret Pep 643 pg/mL Blood Type Blood Type Recheck Antibody Screen Spec Expiration Date 10/14/18 10/14/18 10/14/18 Range/Units 13:20 13:20 13:20 WBC (3.8-10.6) k/uL RBC (4.30-5.90) m/uL Hgb (13.0-17.5) gm/dL Hct (39.0-53.0) % MCV (80.0-100.0) fL MCH (25.0-35.0) pg MCHC (31.0-37.0) g/dL RDW (11.5-15.5) % Plt Count (150-450) k/uL Neutrophils % % Lymphocytes % % Monocytes % % Eosinophils % % Basophils % % Neutrophils # (1.3-7.7) k/uL Lymphocytes # (1.0-4.8) k/uL Monocytes # (0-1.0) k/uL Eosinophils # (0-0.7) k/uL Basophils # (0-0.2) k/uL Hypochromasia Poikilocytosis Anisocytosis ESR (0-15) mm/hr PT 12.4 H (9.0-12.0) sec INR 1.2 H (<1.2) APTT 23.8 (22.0-30.0) sec Sodium (137-145) mmol/L Potassium (3.5-5.1) mmol/L Chloride (98-107) mmol/L Carbon Dioxide (22-30) mmol/L Anion Gap mmol/L BUN (9-20) mg/dL Creatinine (0.66-1.25) mg/dL Est GFR (CKD-EPI)AfAm (>60 ml/min/1.73 sqM) Est GFR (CKD-EPI)NonAf (>60 ml/min/1.73 sqM) Glucose (74-99) mg/dL Calcium (8.4-10.2) mg/dL Magnesium (1.6-2.3) mg/dL Troponin I 0.069 H* (0.000-0.034) ng/mL C-Reactive Protein (<10.0) mg/L NT-Pro-B Natriuret Pep pg/mL Blood Type A Positive Blood Type Recheck No Antibody Screen NEGATIVE Spec Expiration Date 10/17/20182319 - EKG Data -: EKG Interpreted by Me Rate: normal When compared to previous EKG there are: no significant change Interpretation: no acute changes Disposition Clinical Impression: Chest wall abscess, Status post aortic valve replacement, Status post aorto- coronary artery bypass graft Disposition: ADMITTED IP TO THIS HOSP Condition: Stable Is patient prescribed a controlled substance at d/c from ED?: No Decision to Admit Reason: Admit from EC Decision Date: 10/14/18 Decision Time: 16:06
[2018-10-14] MEDS ORDERED: VANCOMYCIN 1,750 MG in SODIUM CHLORIDE 0.9% 500 ML 500 ML IVPB STA (16:09)
[2018-10-14] MEDS ORDERED: AMPICILLIN-SULBACTAM 3 GM in SODIUM CHLORIDE 0.9% 100 ML IVPB SCH (16:15)
[2018-10-14] MEDS ORDERED: VANCOMYCIN IV PER PHARMACY 1 EACH MISC MISCELLANE PRN (17:04)
--- NOTE | 2018-10-14 17:19 | P.GSCN ---
History of Present Illness Consult date: 10/14/18 Reason for Consult: Chest wall fluid collection, recent cardiac surgery. Requesting physician: Mercedes Meeks History of present illness: This is 67-year-old gentleman who is followed by Dr. Don on an outpatient basis. He has a past medical history significant for recent triple vessel coronary artery bypass grafting surgery with placement of his left internal mammary artery to his left anterior ascending coronary artery, a reverse greater saphenous vein graft from the aorta to the first diagonal coronary artery, a reverse greater saphenous vein graft from the aorta to the first obtuse marginal coronary artery, and an elective aortic valve replacement using a #27 mm pericardial bioprosthesis magna ease performed on 09/24/2018. He also has a past medical history significant for hypertension, hyperlipidemia, previous tobacco dependence, COPD with preoperative FEV1 of 64% of predicted value, morbid obesity, and postoperative acute blood loss anemia which was an expected outcome given cardiopulmonary bypass and hemodilution. After the patient was discharged home he was having some complaints of progressive shortness of breath and inability to lie flat. Subsequently on 10/08/2018 the patient presented back to the emergency department here at [facility] and was found to have a tachycardia arrhythmia with a heart rate in the 150s which was possibly atrial flutter. He was admitted for further evaluation and workup at that time and was subsequently discharged to [facility] for further rehabilitation needs on 10/11/2018. While at [facility] the patient reports that he has been doing quite well until last evening when he noticed that he was having some reddish colored drainage from his distal sternal incision. The patient denies any fevers, chills, or recent trauma. While in the emergency department a computed tomography scan of his chest was completed which demonstrated a subcutaneous fluid collection extending to the sternotomy line inferiorly into the anterior mediastinum. It also demonstrated a moderate pericardial effusion and a small left pleural fluid collection. Due to the patient's recent cardiac surgery, computed tomography scan of his chest results and drainage from his sternal incision a consult was placed to Dr. Mag Enriquez from cardiothoracic surgery. Review of Systems A 14 point review of systems was completed and was negative except as mentioned in the HPI. Past Medical History Past Medical History: Atrial Flutter, Coronary Artery Disease (CAD), Heart Failure, COPD, Hyperlipidemia, Hypertension Additional Past Medical History / Comment(s): Coronary artery disease and previous history of Bicuspid aortic valve with moderate to severe aortic valve stenosis with a peak gradient of 60 mmHg and a mean gradient of 30 mmHg across the aortic valve and moderate aortic valve regurgitation. The patient underwent coronary artery bypass surgery and aortic valve replacement with a prosthetic valve, Morbid obesity with a BMI of 42.9 kg/m, COPD, hyperlipidemia, hypertension, diabetes mellitus History of Any Multi-Drug Resistant Organisms: None Reported Past Surgical History: Cardiac Valve Replacement, Coronary Bypass/CABG, Heart Catheterization, Orthopedic Surgery Additional Past Surgical History / Comment(s): ORIF LEFT ANKLE, LACERATION REPAIR OF LEFT FOREARM,RT BREAST I&D, on 09/24/2018 patient underwent a triple- vessel coronary artery bypass grafting using the left internal mammary artery to left anterior setting coronary artery, a reverse greater saphenous vein graft from the aorta to the first diagonal coronary artery, a reverse greater saphenous vein graft from the aorta to the first obtuse marginal coronary artery, and aortic valve replacement using a #27 mm pericardial bioprosthesis magna ease and exclusion of his left atrial appendage using a 40 mm Atriclip. Past Anesthesia/Blood Transfusion Reactions: No Reported Reaction Additional Past Anesthesia/Blood Transfusion Reaction / Comm: hx no blood transfusion Past Psychological History: No Psychological Hx Reported Smoking Status: Former smoker Past Alcohol Use History: None Reported Past Drug Use History: None Reported - Past Family History Mother Family Medical History: Cancer Additional Family Medical History / Comment(s): LUNG CANCER Father Family Medical History: No Reported History Medications and Allergies Home Medications Medication Instructions Recorded Confirmed Type Cholecalciferol [Vitamin D3] 2,000 unit PO DAILY@0900 08/12/18 10/14/18 History Acetaminophen Tab [Tylenol] 650 mg PO Q6HR PRN 10/08/18 10/14/18 History Nitroglycerin Sl Tabs [Nitrostat] 0.4 mg SUBLINGUAL Q5M PRN tab 10/11/18 10/14/18 Rx Apixaban [Eliquis] 5 mg PO BID@0900,2100 10/14/18 10/14/18 History Aspirin 81 mg PO DAILY@0900 10/14/18 10/14/18 History Furosemide [Lasix] 40 mg PO BID@0600,1400 10/14/18 10/14/18 History Ipratropium-Albuterol Nebulize 3 ml INHALATION RT-Q8H 10/14/18 10/14/18 History [Duoneb 0.5 mg-3 mg/3 ml Soln] Lisinopril [Zestril] 2.5 mg PO BID@1200,1400 10/14/18 10/14/18 History Metoprolol Tartrate [Lopressor] 100 mg PO BID@0900,2100 10/14/18 10/14/18 History Pantoprazole [Protonix] 40 mg PO AC-BRKFST@0600 10/14/18 10/14/18 History Sennosides [Senokot] 8.6 mg PO DAILY@0900 10/14/18 10/14/18 History metFORMIN HCL [Glucophage] 500 mg PO BID@0900,1700 10/14/18 10/14/18 History predniSONE See Taper PO DAILY 10/14/18 10/14/18 History Allergies Allergy/AdvReac Type Severity Reaction Status Date / Time No Known Allergies Allergy Verified 10/14/18 12:42 Surgical - Exam Vital Signs Temp Pulse Resp BP Pulse Ox 98.6 F 76 18 107/65 98 10/14/18 12:36 10/14/18 12:36 10/14/18 12:36 10/14/18 12:36 10/14/18 12:36 - General well developed, well nourished, no distress, no pain, obese - Eyes PERRL, normal ocular movement - ENT normal pinna, normal nares, normal mucosa, no hearing loss, no congestion - Neck No lymphadenopathy, neck is supple. no masses, no bruits, trachea midline, no venous distension - Respiratory Lung sounds essentially diminished throughout, few scattered expiratory wheezes. Respirations are symmetrical and nonlabored. Oxygen saturations are 97% on 2 L nasal cannula. - Cardiovascular Regular rhythm and rate. S1 and S2 present, negative for S3, gallop or murmur. Sternum with clicking felt on exam. Heart hugger's in place and he needs reminding of use. Bedside telemetry showing normal sinus rhythm heart rate 83. +1 edema to his bilateral lower extremities. - Abdomen Abdomen soft, nontender and nondistended. Obese. Active bowel sounds all 4 abdominal quadrants. No guarding or rigidity. No organomegaly. - Genitourinary Deferred - Rectum Deferred - Integumentary Midline sternal incision is approximated, serosanguineous drainage noted from his distal sternal incision, some surrounding erythema noted to his distal sternal incision.. Gauze dressing is intact. Right lower extremity EVH site c lean, dry and approximated. No drainage or redness present. no rash, no growths, no abnormal pigmentation - Neurologic normal coordination, normal sensation - Musculoskeletal normal gait, normal posture - Psychiatric oriented to time, oriented to person, oriented to place, speech is normal, memory intact Results - Labs 10/14/18 13:20 10/14/18 13:20 Abnormal Lab Results - Last 24 Hours (Table) 10/14/18 10/14/18 10/14/18 Range/Units 13:20 13:20 13:20 WBC 11.4 H (3.8-10.6) k/uL RBC 3.00 L (4.30-5.90) m/uL Hgb 8.2 L (13.0-17.5) gm/dL Hct 27.4 L (39.0-53.0) % MCHC 30.0 L (31.0-37.0) g/dL RDW 16.8 H (11.5-15.5) % Neutrophils # 10.6 H (1.3-7.7) k/uL Lymphocytes # 0.4 L (1.0-4.8) k/uL ESR 76 H (0-15) mm/hr PT 12.4 H (9.0-12.0) sec INR 1.2 H (<1.2) Chloride 90 L (98-107) mmol/L Carbon Dioxide 36 H (22-30) mmol/L BUN 50 H (9-20) mg/dL Glucose 145 H (74-99) mg/dL Magnesium 2.4 H (1.6-2.3) mg/dL Troponin I (0.000-0.034) ng/mL C-Reactive Protein 32.1 H (<10.0) mg/L 10/14/18 Range/Units 13:20 WBC (3.8-10.6) k/uL RBC (4.30-5.90) m/uL Hgb (13.0-17.5) gm/dL Hct (39.0-53.0) % MCHC (31.0-37.0) g/dL RDW (11.5-15.5) % Neutrophils # (1.3-7.7) k/uL Lymphocytes # (1.0-4.8) k/uL ESR (0-15) mm/hr PT (9.0-12.0) sec INR (<1.2) Chloride (98-107) mmol/L Carbon Dioxide (22-30) mmol/L BUN (9-20) mg/dL Glucose (74-99) mg/dL Magnesium (1.6-2.3) mg/dL Troponin I 0.069 H* (0.000-0.034) ng/mL C-Reactive Protein (<10.0) mg/L Diabetes panel 10/14/18 Range/Units 13:20 Sodium 138 (137-145) mmol/L Potassium 4.6 (3.5-5.1) mmol/L Chloride 90 L (98-107) mmol/L Carbon Dioxide 36 H (22-30) mmol/L BUN 50 H (9-20) mg/dL Creatinine 1.05 (0.66-1.25) mg/dL Glucose 145 H (74-99) mg/dL Calcium 9.0 (8.4-10.2) mg/dL Calcium panel 10/14/18 Range/Units 13:20 Calcium 9.0 (8.4-10.2) mg/dL Pituitary panel 10/14/18 Range/Units 13:20 Sodium 138 (137-145) mmol/L Potassium 4.6 (3.5-5.1) mmol/L Chloride 90 L (98-107) mmol/L Carbon Dioxide 36 H (22-30) mmol/L BUN 50 H (9-20) mg/dL Creatinine 1.05 (0.66-1.25) mg/dL Glucose 145 H (74-99) mg/dL Calcium 9.0 (8.4-10.2) mg/dL Adrenal panel 10/14/18 Range/Units 13:20 Sodium 138 (137-145) mmol/L Potassium 4.6 (3.5-5.1) mmol/L Chloride 90 L (98-107) mmol/L Carbon Dioxide 36 H (22-30) mmol/L BUN 50 H (9-20) mg/dL Creatinine 1.05 (0.66-1.25) mg/dL Glucose 145 H (74-99) mg/dL Calcium 9.0 (8.4-10.2) mg/dL - Imaging Chest x-ray: image reviewed CT scan - chest: report reviewed, image reviewed Assessment and Plan Assessment: 1. Sternal incision drainage, with fluid collection and area per computed tomography scan of the chest. 2. Status post aortic valve replacement on 09/24/2018. 3. Status post aortocoronary bypass grafting surgery 3 vessels on 09/24/2018. 4. History of aortic valve stenosis. 5. Coronary artery disease. 6. Anemia of chronic disease. 7. Hypertension, 8. Hyperlipidemia. 9. Chronic obstructive pulmonary disease. 10. Morbid obesity. 11. Postoperative atrial flutter, currently normal sinus rhythm. 12. Acute on chronic congestive heart failure. 13. Tobacco dependence in remission. Plan: The patient was seen and examined. His chart and diagnostics were reviewed. This case was discussed with Dr. Mag Enriquez from cardiothoracic surgery. The patient was seen by Dr. Emile Cadena from cardiothoracic surgery who evaluated his sternal incision. The patient will be made nothing by mouth after midnight and be scheduled for a sternal reconstruction with plating in the a.m. of 10/15/2018. He will be made nothing by mouth after midnight. We will send a type and screen as his hemoglobin today is 8.2. Risks and benefits of the surgery have been discussed with the patient, and the patient wishes to proceed with the sternal reconstruction surgery as scheduled. Patient will be admitted to the hospital for further evaluation and monitoring. Medical management per Dr. Sexton. We will discontinue his antibiotics at this time as the patient has been afebrile and his WBC currently on admission was 11.4. It has been reinforced with the patient the importance of using his heart hugger for sternal support. Gauze dressing to his sternal incision and change as needed to keep sternal incision area dry. Hold Eliquis for now. Resume aspirin, statin, KIKA inhibitor and beta misabh. GI prophylaxis using Protonix and DVT prophylaxis, bilateral lower extremity SCDs have been ordered. Thank you for this consult and we look for to working with you in the care of your patient. Time with Patient: Greater than 30
[2018-10-14] MEDS ORDERED: IPRATROPIUM-ALBUTEROL 3 ML NEB INHALATION PRN (20:07)
[2018-10-14] MEDS: METOPROLOL TARTRATE 50 MG TAB PO SCH (20:38)
[2018-10-14 21:27] LABS: Glucose,Whole Blood 149 mg/dL (75-99)
[2018-10-15] MEDS ORDERED: IPRATROPIUM-ALBUTEROL 3 ML NEB INHALATION SCH
[2018-10-15] MEDS: HEPARIN SODIUM,PORCINE 5,000 UNIT/ML 1 ML VIAL SQ SCH ×4 (00:24→17:26)
[2018-10-15 03:24] LABS: Anisocytosis Slight; Basophils % (A) 0 %; Eosinophils # (A) 0.1 k/uL (0-0.7); Eosinophils % (A) 1 %; HCT 28.9 % (39.0-53.0); HGB 8.5 gm/dL (13.0-17.5); Hypochromasia Marked; Lymphocytes % (A) 10 %; MCH 27.9 pg (25.0-35.0); MCHC 29.5 g/dL (31.0-37.0); MCV 94.8 fL (80.0-100.0); Mean Platelet Volume 7.1; Monocytes # (A) 0.4 k/uL (0-1.0); Monocytes % (A) 4 %; Neutrophils # (A) 8.2 k/uL (1.3-7.7); Neutrophils % (A) 84 %; Platelet Count 407 k/uL (150-450); Poikilocytosis Moderate; RBC 3.05 m/uL (4.30-5.90); RDW 16.4 % (11.5-15.5); WBC 9.8 k/uL (3.8-10.6)
[2018-10-15 03:25] LABS: Potassium 3.7 mmol/L (3.5-5.1)
[2018-10-15 03:26] LABS: Anion Gap 10 mmol/L; Blood Urea Nitrogen 38 mg/dL (9-20); Carbon Dioxide 35 mmol/L (22-30); Chloride 94 mmol/L (98-107); Glucose 102 mg/dL (74-99); Sodium 139 mmol/L (137-145)
[2018-10-15] MEDS ORDERED: PANTOPRAZOLE 40 MG TABLET PO SCH (06:00)
[2018-10-15] MEDS ORDERED: VANCOMYCIN 1,750 MG in SODIUM CHLORIDE 0.9% 500 ML 500 ML IVPB SCH (06:00)
[2018-10-15] MEDS: METOPROLOL TARTRATE 50 MG TAB PO SCH ×2 (06:01→23:29)
[2018-10-15] MEDS: ASPIRIN 81 MG PO SCH (06:01)
[2018-10-15] MEDS: SENNOSIDES 8.6 MG TAB PO SCH (06:01)
[2018-10-15 06:19] LABS: Glucose,Whole Blood 132 mg/dL (75-99)
[2018-10-15] MEDS ORDERED: POTASSIUM CHLORIDE ER 20 MEQ TAB.ER PO STA (07:19)
[2018-10-15] MEDS: IPRATROPIUM-ALBUTEROL 3 ML NEB INHALATION SCH ×4 (07:41→23:08)
[2018-10-15] MEDS ORDERED: POTASSIUM BICARBONATE/CIT AC 20 MEQ TABLET.EFF PO ONE (08:30)
--- NOTE | 2018-10-15 09:07 | XR ---
EXAMINATION TYPE: XR chest 2V DATE OF EXAM: 10/14/2018 COMPARISON: 10/10/2018 INDICATION: Chest pain TECHNIQUE: Frontal and lateral views of the chest are obtained. FINDINGS: The heart size is prominent. The pulmonary vasculature is normal. Left lower lobe infiltrate is present. Correlate for atelectasis or pneumonia. Findings are worsening from the comparison. There is been prior cardiac surgery with valve replacement. IMPRESSION: 1. Lingular infiltrate worsening from comparison. Correlate for atelectasis and pneumonia. 2. Small pleural fluid 3. Cardiomegaly.
--- NOTE | 2018-10-15 09:24 | P.CONS ---
History of Present Illness - Reason for Consult Consult date: 10/15/18 Chest wall abscess - History of Present Illness This is a 67-year-old male with past medical history significant for recent triple vessel coronary artery bypass grafting surgery with placement of his left internal mammary artery to his left anterior ascending coronary artery, a reverse greater saphenous vein graft from the aorta to the first diagonal coronary artery, a reverse greater saphenous vein graft from the aorta to the first obtuse marginal coronary artery, and an elective aortic valve replacement using bioprosthesis on 09/24/2018. Subsequently on 10/08/2018 the patient presented back to the [facility] emergency center and was found to have a tachycardia arrhythmia with a heart rate in the 150s which was possibly atrial flutter. He was admitted for further evaluation and workup at that time and was subsequently discharged to [facility] for further rehabilitation needs on 10/11/2018. While at [facility], the patient noticed reddish colored drainage from his distal sternal incision. The patient denies any fevers, chills, or recent trauma. While in the emergency department a computed tomography scan of his chest was completed which demonstrated a subcutaneous fluid collection extending to the sternotomy line inferiorly into the anterior mediastinum. It also demonstrated a moderate pericardial effusion and a small left pleural fluid collection. Patient was found to be afebrile, white count initially 11.4 with repeated 9.8, creatinine 0.84. C-reactive protein 32.1 and sed rate 76. ProBNP 643, troponin 0.069. Patient was given a dose of vancomycin in the emergency center. He has been admitted to the surgical unit and he is scheduled for sternal reconstruction with plating with Dr. Enriquez today. Patient is also noted to have a wound to the right lower extremity most likely from LACHO drain from vein harvesting. Review of Systems All systems: negative Constitutional: Reports fatigue, Reports malaise, Reports poor appetite, Reports weakness, Denies chills, Denies fever Eyes: denies blurred vision, denies pain Ears, nose, mouth and throat: Denies dysphagia, Denies headache, Denies nasal congestion, Denies nasal discharge, Denies sore throat, Denies vertigo Cardiovascular: Reports dyspnea on exertion, Denies chest pain, Denies shortness of breath, Denies syncope Respiratory: Denies cough, Denies cough with sputum, Denies dyspnea, Denies excessive sputum, Denies hemoptysis Gastrointestinal: Denies abdominal pain, Denies diarrhea, Denies nausea, Denies vomiting Musculoskeletal: Denies myalgias Integumentary: Reports wounds, Denies pruritus, Denies rash Neurological: Denies numbness, Denies weakness Psychiatric: Denies anxiety, Denies depression Endocrine: Denies fatigue, Denies weight change Past Medical History Past Medical History: Coronary Artery Disease (CAD), COPD, Hyperlipidemia, Hypertension Additional Past Medical History / Comment(s): Coronary artery disease and previous history of Bicuspid aortic valve with moderate to severe aortic valve stenosis with a peak gradient of 60 mmHg and a mean gradient of 30 mmHg across the aortic valve and moderate aortic valve regurgitation. The patient underwent coronary artery bypass surgery and aortic valve replacement with a prosthetic valve, Morbid obesity with a BMI of 42.9 kg/m, COPD, hyperlipidemia, hyperten marielena, diabetes mellitus History of Any Multi-Drug Resistant Organisms: None Reported Past Surgical History: Cardiac Valve Replacement, Coronary Bypass/CABG, Heart Catheterization, Orthopedic Surgery Additional Past Surgical History / Comment(s): ORIF LEFT ANKLE, LACERATION REPAIR OF LEFT FOREARM,RT BREAST I&D, on 09/24/2018 patient underwent a triple- vessel coronary artery bypass grafting using the left internal mammary artery to left anterior setting coronary artery, a reverse greater saphenous vein graft from the aorta to the first diagonal coronary artery, a reverse greater saphenous vein graft from the aorta to the first obtuse marginal coronary artery, and aortic valve replacement using a #27 mm pericardial bioprosthesis magna ease and exclusion of his left atrial appendage using a 40 mm Atriclip. Past Anesthesia/Blood Transfusion Reactions: No Reported Reaction Additional Past Anesthesia/Blood Transfusion Reaction / Comm: hx no blood transfusion Past Psychological History: No Psychological Hx Reported Smoking Status: Former smoker Additional Past Alcohol Use History / Comment(s): Patient was smoker of 2 packs per day for 20 years about 5 years ago. He denies any marijuana or street drug or alcohol use. He worked in the past in an [employer]. He is currently living with his ex-. No pets in the home. - Past Family History Mother Family Medical History: Cancer Additional Family Medical History / Comment(s): LUNG CANCER Father Family Medical History: No Reported History Medications and Allergies Home Medications Medication Instructions Recorded Confirmed Type Cholecalciferol [Vitamin D3] 2,000 unit PO DAILY@0900 08/12/18 10/14/18 History Acetaminophen Tab [Tylenol] 650 mg PO Q6HR PRN 10/08/18 10/14/18 History Nitroglycerin Sl Tabs [Nitrostat] 0.4 mg SUBLINGUAL Q5M PRN tab 10/11/18 10/14/18 Rx Apixaban [Eliquis] 5 mg PO BID@0900,2100 10/14/18 10/14/18 History Aspirin 81 mg PO DAILY@0900 10/14/18 10/14/18 History Furosemide [Lasix] 40 mg PO BID@0600,1400 10/14/18 10/14/18 History Ipratropium-Albuterol Nebulize 3 ml INHALATION RT-Q8H 10/14/18 10/14/18 History [Duoneb 0.5 mg-3 mg/3 ml Soln] Lisinopril [Zestril] 2.5 mg PO BID@1200,1400 10/14/18 10/14/18 History Metoprolol Tartrate [Lopressor] 100 mg PO BID@0900,2100 10/14/18 10/14/18 History Pantoprazole [Protonix] 40 mg PO AC-BRKFST@0600 10/14/18 10/14/18 History Sennosides [Senokot] 8.6 mg PO DAILY@0900 10/14/18 10/14/18 History metFORMIN HCL [Glucophage] 500 mg PO BID@0900,1700 10/14/18 10/14/18 History predniSONE See Taper PO DAILY 10/14/18 10/14/18 History Allergies Allergy/AdvReac Type Severity Reaction Status Date / Time No Known Allergies Allergy Verified 10/14/18 12:42 Physical Exam Vitals: Vital Signs Temp Pulse Pulse Pulse Resp BP BP 10/15/18 07:54 76 10/15/18 07:45 72 10/15/18 04:00 83 83 18 109/64 10/15/18 00:00 98.3 F 82 82 18 115/56 10/14/18 20:00 97.4 F L 92 92 18 125/62 10/14/18 19:23 113 H 18 125/84 10/14/18 15:08 78 18 107/50 10/14/18 14:44 76 16 107/65 10/14/18 12:36 98.6 F 76 18 107/65 Pulse Ox 10/15/18 07:54 10/15/18 07:45 97 10/15/18 04:00 96 10/15/18 00:00 95 10/14/18 20:00 93 L 10/14/18 19:23 97 10/14/18 15:08 97 10/14/18 14:44 97 10/14/18 12:36 98 Intake and Output 10/14/18 10/15/18 10/15/18 22:59 06:59 14:59 Output Total 400 Balance -400 Output: Urine 400 Other: Voiding Method Urinal Urinal Weight 113.8 kg Gen: This is a morbidly obese 67-year-old male. He is resting a recliner and respiratory status appears to be stable. HEENT: Head is atraumatic, normocephalic. Pupils equal, round. Sclerae is anicteric. Conjunctiva pink. His memories of the mouth are moist. Patient has a large lesion on the right side of his tongue. No thrush noted. NECK: Supple. No JVD. No lymphadenopathy. No thyromegaly. LUNGS: Diminished lung sounds. No accessory muscle usage No intercostal retractions. HEART: Regular rate and rhythm. No murmur. Sternal dressing has breakthrough serosanguineous drainage. Heart hugger is in place. ABDOMEN: Morbidly obese. Soft. Bowel sounds are present. No masses. No tenderness. EXTREMITIES: 2+ pedal edema. Dorsalis pedis +[address] to the right lower extremity. This was not removed for evaluation and deferred to Dr. Crook. NEUROLOGICAL: Patient is awake, alert and oriented x3. Cranial nerves 2 through 12 are grossly intact. Results Results: Laboratory Results WBC 9.8 k/uL (3.8-10.6) 10/15/18 03:04 RBC 3.05 m/uL (4.30-5.90) L 10/15/18 03:04 Hgb 8.5 gm/dL (13.0-17.5) L 10/15/18 03:04 Hct 28.9 % (39.0-53.0) L 10/15/18 03:04 MCV 94.8 fL (80.0-100.0) 10/15/18 03:04 MCH 27.9 pg (25.0-35.0) 10/15/18 03:04 MCHC 29.5 g/dL (31.0-37.0) L 10/15/18 03:04 RDW 16.4 % (11.5-15.5) H 10/15/18 03:04 Plt Count 407 k/uL (150-450) 10/15/18 03:04 Neutrophils % 84 % 10/15/18 03:04 Lymphocytes % 10 % 10/15/18 03:04 Monocytes % 4 % 10/15/18 03:04 Eosinophils % 1 % 10/15/18 03:04 Basophils % 0 % 10/15/18 03:04 Neutrophils # 8.2 k/uL (1.3-7.7) H 10/15/18 03:04 Lymphocytes # 1.0 k/uL (1.0-4.8) 10/15/18 03:04 Monocytes # 0.4 k/uL (0-1.0) 10/15/18 03:04 Eosinophils # 0.1 k/uL (0-0.7) 10/15/18 03:04 Basophils # 0.0 k/uL (0-0.2) 10/15/18 03:04 Hypochromasia Marked 10/15/18 03:04 Poikilocytosis Moderate 10/15/18 03:04 Anisocytosis Slight 10/15/18 03:04 ESR 76 mm/hr (0-15) H 10/14/18 13:20 PT 12.4 sec (9.0-12.0) H 10/14/18 13:20 INR 1.2 (<1.2) H 10/14/18 13:20 APTT 23.8 sec (22.0-30.0) 10/14/18 13:20 Sodium 139 mmol/L (137-145) 10/15/18 03:04 Potassium 3.7 mmol/L (3.5-5.1) 10/15/18 03:04 Chloride 94 mmol/L (98-107) L 10/15/18 03:04 Carbon Dioxide 35 mmol/L (22-30) H 10/15/18 03:04 Anion Gap 10 mmol/L 10/15/18 03:04 BUN 38 mg/dL (9-20) H 10/15/18 03:04 Creatinine 0.84 mg/dL (0.66-1.25) 10/15/18 03:04 Est GFR (CKD-EPI)AfAm >90 (>60 ml/min/1.73 sqM) 10/15/18 03:04 Est GFR (CKD-EPI)NonAf >90 (>60 ml/min/1.73 sqM) 10/15/18 03:04 Glucose 102 mg/dL (74-99) H 10/15/18 03:04 POC Glucose (mg/dL) 132 mg/dL (75-99) H 10/15/18 06:18 POC Glu Photo Journalist ID Gladys Carrillo 10/15/18 06:18 Calcium 9.0 mg/dL (8.4-10.2) 10/15/18 03:04 Magnesium 2.4 mg/dL (1.6-2.3) H 10/14/18 13:20 Troponin I 0.069 ng/mL (0.000-0.034) H* 10/14/18 13:20 C-Reactive Protein 32.1 mg/L (<10.0) H 10/14/18 13:20 NT-Pro-B Natriuret Pep 643 pg/mL 10/14/18 13:20 Blood Type A Positive 10/14/18 13:20 Blood Type Recheck No 10/14/18 13:20 Antibody Screen NEGATIVE 10/14/18 13:20 Spec Expiration Date 10/17/2018231910/14/18 13:20 CBC & Chem 7: 10/16/18 05:15 10/16/18 04:30 Labs: Abnormal Lab Results - Last 24 Hours (Table) 10/14/18 10/14/18 10/14/18 Range/Units 13:20 13:20 13:20 WBC 11.4 H (3.8-10.6) k/uL RBC 3.00 L (4.30-5.90) m/uL Hgb 8.2 L (13.0-17.5) gm/dL Hct 27.4 L (39.0-53.0) % MCHC 30.0 L (31.0-37.0) g/dL RDW 16.8 H (11.5-15.5) % Neutrophils # 10.6 H (1.3-7.7) k/uL Lymphocytes # 0.4 L (1.0-4.8) k/uL ESR 76 H (0-15) mm/hr PT 12.4 H (9.0-12.0) sec INR 1.2 H (<1.2) Chloride 90 L (98-107) mmol/L Carbon Dioxide 36 H (22-30) mmol/L BUN 50 H (9-20) mg/dL Glucose 145 H (74-99) mg/dL POC Glucose (mg/dL) (75-99) mg/dL Magnesium 2.4 H (1.6-2.3) mg/dL Troponin I (0.000-0.034) ng/mL C-Reactive Protein 32.1 H (<10.0) mg/L 10/14/18 10/14/18 10/15/18 Range/Units 13:20 21:26 03:04 WBC (3.8-10.6) k/uL RBC 3.05 L (4.30-5.90) m/uL Hgb 8.5 L (13.0-17.5) gm/dL Hct 28.9 L (39.0-53.0) % MCHC 29.5 L (31.0-37.0) g/dL RDW 16.4 H (11.5-15.5) % Neutrophils # 8.2 H (1.3-7.7) k/uL Lymphocytes # (1.0-4.8) k/uL ESR (0-15) mm/hr PT (9.0-12.0) sec INR (<1.2) Chloride (98-107) mmol/L Carbon Dioxide (22-30) mmol/L BUN (9-20) mg/dL Glucose (74-99) mg/dL POC Glucose (mg/dL) 149 H (75-99) mg/dL Magnesium (1.6-2.3) mg/dL Troponin I 0.069 H* (0.000-0.034) ng/mL C-Reactive Protein (<10.0) mg/L 10/15/18 10/15/18 Range/Units 03:04 06:18 WBC (3.8-10.6) k/uL RBC (4.30-5.90) m/uL Hgb (13.0-17.5) gm/dL Hct (39.0-53.0) % MCHC (31.0-37.0) g/dL RDW (11.5-15.5) % Neutrophils # (1.3-7.7) k/uL Lymphocytes # (1.0-4.8) k/uL ESR (0-15) mm/hr PT (9.0-12.0) sec INR (<1.2) Chloride 94 L (98-107) mmol/L Carbon Dioxide 35 H (22-30) mmol/L BUN 38 H (9-20) mg/dL Glucose 102 H (74-99) mg/dL POC Glucose (mg/dL) 132 H (75-99) mg/dL Magnesium (1.6-2.3) mg/dL Troponin I (0.000-0.034) ng/mL C-Reactive Protein (<10.0) mg/L Assessment and Plan Plan: This is a 67-year-old male who presents to Hospital following recent CABG and aortic valve replacement with a draining sternal wound, fluid collection reported on CAT scan. He is scheduled for sternal reconstruction with plating today. He did receive 1 dose of vancomycin and currently on perioperative Kefzol. Requested cultures be obtained during surgical procedure. A blood culture status received. Further recommendations as patient progresses. The above dictated assessment and findings were discussed with Dr. Crook. The impression and plan of care have been directed as dictated. Darlene Chavez nurse practitioner acting as scribe for Dr. Crook.
[2018-10-15] MEDS: FUROSEMIDE 40 MG TAB PO SCH ×2 (09:54→16:31)
[2018-10-15] MEDS ORDERED: IV FLUID CONTINUATION 1,000 ML IV ONE (10:28)
[2018-10-15] MEDS ORDERED: DEXTROSE IVPB ONE (11:00)
[2018-10-15] MEDS ORDERED: ceFAZolin IN SWFI 2 GM/20 ML SYRINGE IVP ONE (11:00)
[2018-10-15] MEDS ORDERED: CEFAZOLIN IVPB ONE (11:00)
[2018-10-15] MEDS ORDERED: ceFAZolin 1,000 MG in SODIUM CHLORIDE 0.9% IRRIGATIO 1,000 ML IRRIGATION ONE (11:00)
[2018-10-15] MEDS ORDERED: WATER IVPB ONE (11:00)
[2018-10-15] MEDS ORDERED: fentaNYL (PF) 50 MCG/ML 2 ML AMP IVP ONE (11:30)
[2018-10-15] MEDS ORDERED: fentaNYL (PF) 50 MCG/ML 2 ML AMP ONE (11:56)
[2018-10-15] MEDS ORDERED: hydrALAZINE HCL 20 MG/ML 1 ML VIAL ONE (11:56)
[2018-10-15] MEDS ORDERED: NEOSTIGMINE 1 MG/ML 10 ML VIAL ONE (11:56)
[2018-10-15] MEDS ORDERED: SUCCINYLCHOLINE CHLORIDE 100 MG/5 ML SYR IV ONE (11:56)
[2018-10-15] MEDS ORDERED: GLYCOPYRROLATE 0.2 MG/ML 2 ML VIAL ONE (11:56)
[2018-10-15] MEDS ORDERED: HYDROmorphone (PF) 1 MG/ML ONE (11:56)
[2018-10-15] MEDS ORDERED: ONDANSETRON 4 MG/2 ML VIAL ONE (11:56)
[2018-10-15] MEDS ORDERED: PROPOFOL 10 MG/ML 20 ML VIAL IV ONE ×2 (11:56→17:56)
[2018-10-15] MEDS ORDERED: LIDOCAINE 1% INJ 10MG/ML (20 ML MDV) ONE (11:56)
[2018-10-15] MEDS ORDERED: MIDAZOLAM 2 MG/2 ML VIAL ONE (11:56)
[2018-10-15] MEDS ORDERED: ROCURONIUM BROMIDE 10 MG/ML 10 ML VIAL IV ONE (11:56)
[2018-10-15] MEDS ORDERED: SODIUM CHLORIDE 0.9% 50 ML with ceFAZolin 2,000 MG IV ONE ×2 (12:46)
[2018-10-15] MEDS: LACTATED RINGERS 1,000 ML IV ONE ×2 (15:00→17:44)
[2018-10-15] MEDS ORDERED: LACTATED RINGERS 1,000 ML IV ONE ×3 (15:00)
[2018-10-15 16:06] LABS: Glucose,Whole Blood 150 mg/dL (75-99)
--- NOTE | 2018-10-15 16:26 | P.CON ---
Consult Note - . Consult date: 10/15/18 Assessment/Plan:: This is a 67-year-old male with past medical history significant for recent triple vessel coronary artery bypass grafting surgery with placement of his left internal mammary artery to his left anterior ascending coronary artery, a reverse greater saphenous vein graft from the aorta to the first diagonal coronary artery, a reverse greater saphenous vein graft from the aorta to the first obtuse marginal coronary artery, and an elective aortic valve replacement using bioprosthesis on 09/24/2018. Subsequently on 10/08/2018 the patient presented back to the [facility] emergency center and was found to have a tachycardia arrhythmia with a heart rate in the 150s which was possibly atrial flutter. He was admitted for further evaluation and workup at that time and was subsequently discharged to [facility] for further rehabilitation needs on 10/11/2018. While at [facility], the patient noticed reddish colored drainage from his distal sternal incision. The patient denies any fevers, chills, or recent trauma. While in the emergency department a computed tomography scan of his chest was completed which demonstrated a subcutaneous fluid collection extending to the sternotomy line inferiorly into the anterior mediastinum. It also demonstrated a moderate pericardial effusion and a small left pleural fluid collection. Patient was found to be afebrile, white count initially 11.4 with repeated 9.8, creatinine 0.84. C-reactive protein 32.1 and sed rate 76. ProBNP 643, troponin 0.069. Patient was given a dose of vancomycin in the emergency center. He has been admitted to the surgical unit and he is scheduled for sternal reconstruction with plating with Dr. Enriquez today. Patient is also noted to have a wound to the right lower extremity most likely from LACHO drain from vein harvesting. Please see the consult note as dictated by nurse practitioner Mrs. Darlene Chavez. There is evidence of ecchymosis to the chest wall, and concerns to mechanical failure of the sternum. The patient subsequently is being taken to the operating room for reconstruction of his sternum. Strict medication with the surgeon postoperatively reveals evidence of the mechanical disruption of the sternum, no evidence of any purulence into the area. The patient had minimal leukocytosis at admission which is are improving. Evidence of high-grade fevers chills rigors or sweats preceding the admission. Gram stains have been obtained and perioperative antibiotic therapy for prophylaxis are all that is indicated at this time. I agree with evaluation, assessment and plan as dictated in practitioner Mrs. Darlene Chavez.
[2018-10-15] MEDS: DEXTROSE 5%-0.45% NACL 1,000 ML IV SCH (16:30)
[2018-10-15 16:44] LABS: ABG Base Excess 12.5 mmol/L; ABG HCO3 36 mmol/L (21-25); ABG Oxygen Saturation 96.7 % (94-97); ABG PCO2 52 mmHg (35-45); ABG PH 7.45 (7.35-7.45); ABG PO2 80 mmHg (83-108); ABG TCO2 38 mmol/L (19-24)
--- NOTE | 2018-10-15 16:55 | XR ---
EXAMINATION TYPE: XR chest 1V portable DATE OF EXAM: 10/15/2018 COMPARISON: 10/14/2018 HISTORY: Chest pain TECHNIQUE: Single frontal view of the chest is obtained. FINDINGS: There is blunting of costophrenic angles. The endotracheal tube is 4 cm from the liya in good position. There is probably some infiltrate at the lung bases. There is no definite heart failu re. Heart appears enlarged. IMPRESSION: Pleural effusions and basilar pulmonary infiltrates and atelectasis unchanged or slightly worse than yesterday.
[2018-10-15] MEDS: PROPOFOL 1,000 MG in EMPTY BAG 1 BAG IV SCH ×2 (17:00→20:11)
[2018-10-15] MEDS: INSULIN ASPART (NovoLOG) 100 UNIT/ML VIAL SQ SCH ×3 (17:27→21:17)
--- NOTE | 2018-10-15 17:38 | OP ---
OPERATIVE REPORT DATE OF THE SURGERY: 10/15/2018. SURGEON: Dr. Kathrin Enriquez. GLASS BLOWER: Chris Carlos, Nurse practitioner, and Peng HENDERSON. PREOPERATIVE DIAGNOSIS: Mechanical destruction of the sternum, status post aortic valve replacement and coronary artery bypass grafting of 3 weeks ago. POSTOPERATIVE DIAGNOSIS: Mechanical destruction of the sternum, status post aortic valve replacement and coronary artery bypass grafting of 3 weeks ago. PROCEDURE PERFORMED: The recreation of wound hematoma and reconstruction of the sternum using the tritium plating system. INDICATION FOR SURGERY: The patient is a 67-year-old obese gentleman with COPD who is status post aortic valve replacement and triple-vessel coronary artery bypass grafting performed on 09/24/2018. The patient presented to the emergency room yesterday for some bloody oozing from his lower sternotomy with ecchymotic area. He had been placed on Eliquis last week when he was readmitted with atrial fibrillation. CT scan showed a wound hematoma as well as some blood lateral and posterior to the left ventricle as well as mild left sided pleural effusion with disruption of at least the lower half of the sternum with cables that did a cut through the right side of the sternum. The patient has been taken today for evacuation of hematoma and pericardial blood and sternal reconstruction. The risks, benefits, and alternatives were discussed with him and his they understood them and agreed to proceed. DESCRIPTION OF THE PROCEDURE: The patient in supine position. A right radial arterial line was placed. Subsequently, general endotracheal anesthesia was induced uneventfully. A Sauceda catheter was inserted. The patient received 2 g of cefazolin intravenously. The chest, abdomen and both lower extremities were prepped and draped using ChloraPrep. Ioban was used to cover the skin. I started initially by making a limited incision in the lower aspect of the previous sternotomy incision and good amount of black old blood was suctioned. Subsequently, I went ahead and opened the whole incision exposing the whole sternum. The 2 upper cables were intact. There was some gap in the upper manubrial area and the lower 3 cables had cut through the right side of the sternum. Those 3 cables were removed. We were looking at an intact left side hemisternum. However, the right side was in basically 4 pieces as the cables were cut through every single intercostal space from the 3rd to 6th spaces. There was no evidence of any infection. We, however, sent a specimen for gram stain and culture. All organized clots were removed from around the sternum. I gently liberated the underside of the sternum on both side. I identified the diaphragmatic surface of the right ventricle and was able to get into the pericardium and suction posteriorly some also old blood. Irrigation was done also in the posterior pericardium very gently with a pool sucker for suction. However, I went ahead at this point and placed a 19-Welsh Jake drain into the posterior pericardium and used the same drain draped under the hemisternum as a loop before it came out through a separate stab incision on the left upper quadrant and affixed to the skin. At this point, I decided to reconstruct using the tritium plating system. We used a V accessory plate for the manubrium affixed on either side with 2 screws. Subsequently, I picked up the longest plate with 3 compartments, centered on each fragment, and stabilized the middle 3rd of the sternum again using basically a combination of a green and gold 40 mm screw. We had good approximation at that level. We used also another long plate centered on the other lower 3 compartment and was affixed also and the fragments were all brought together in a very satisfactory fashion. Also inferiorly, I used a V accessary plate to approximate the distal end of the sternotomy. We had what seems to be a very solid reconstruction. Thorough irrigation with cefazolin followed. The rest of the closure proceeded by using Ethibond started with interrupted suture for the lower aspect of the sternotomy incision, then I continued in a continuous fashion. The subcutaneous was closed using interrupted Vicryl 2-0. The skin was closed using Vicryl 4-0 in a subcuticular manner. A Provena suction dressing was applied for optimal wound healing at this point. The patient tolerated the procedure well and was extubated, transferred to the ICU in stable condition. MMODL / IJN: [id number] /
[2018-10-15] MEDS: LISINOPRIL 2.5 MG TAB PO SCH (17:43)
[2018-10-15] MEDS ORDERED: NALOXONE 0.4 MG/ML 1 ML VIAL IV PRN (17:51)
--- NOTE | 2018-10-15 18:01 | P.CNPUL ---
History of Present Illness Consult date: 10/15/18 Requesting physician: Bryce Sexton Reason for consult: abnormal CXR/CT (Critical care management) Chief complaint: Oozing from sternal chest wound History of present illness: This is a 67-year-old gentleman who follows with Dr. Don as his primary care physician. He has a past medical history of hypertension, hyperlipidemia, morbid obesity, previous tobacco dependence, chronic obstructive pulmonary disease with FEV1 value 64% of predicted. He was also recently found to have significant coronary artery disease and on 09/24/2018 that he had undergone a artery bypass surgery He had done well and was subsequently discharged on 09/30/2018.. He re presented here on 10/08/2018 WITH increased shortness of breath and atrial fibrillation with a rapid ventricular response and was treated for acute hypoxic respiratory failure and rate control with amiodarone. He was again discharged to an extended care facility on 10/11/2018. He remains presented here yesterday after developing oozing from his sternal wound. Computed tomography scan of the chest revealed fluid collection subcutaneous tissues extending to the sternotomy line inferiorly into the anterior mediastinum. Suspected abscess versus hemorrhage. There was a diastases of the sternotomy line. Moderate pericardial effusion and a small left pleural effusion. Today he had undergone a sternal reconstruction with plating and removal of the sternal wires by Dr. Enriquez. He is seen in consultation today in the intensive care unit postoperatively. He is intubated and on the mechanical ventilator. Current settings are assist control 12, tidal volume 600, FiO2 50% and a PEEP of 5. Arterial blood gases reveal pO2 of 80, pCO2 of 52 and a pH of 7.45. Chest x-ray shows bilateral atelectasis. He currently has a D5 and half- normal saline at 70 ML's per hour. He's been initiated on Kefzol for 2 doses. He is on heparin subcutaneous for DVT prophylaxis and DuoNeb inhalations every 4 hours. Preop labs revealed a WBC 9.8. Hemoglobin 8.5. Platelet count 407,000. Creatinine 0.84. He'll remain sedated with propofol throughout the evening. Review of Systems ROS unobtainable: due to endotracheal tube Past Medical History Past Medical History: Coronary Artery Disease (CAD), COPD, Hyperlipidemia, Hypertension Additional Past Medical History / Comment(s): Coronary artery disease and previous history of Bicuspid aortic valve with moderate to severe aortic valve stenosis with a peak gradient of 60 mmHg and a mean gradient of 30 mmHg across the aortic valve and moderate aortic valve regurgitation. The patient underwent coronary artery bypass surgery and aortic valve replacement with a prosthetic valve, Morbid obesity with a BMI of 42.9 kg/m, COPD, hyperlipidemia, hypertension, diabetes mellitus History of Any Multi-Drug Resistant Organisms: None Reported Past Surgical History: Cardiac Valve Replacement, Coronary Bypass/CABG, Heart Catheterization, Orthopedic Surgery Additional Past Surgical History / Comment(s): ORIF LEFT ANKLE, LACERATION REPAIR OF LEFT FOREARM,RT BREAST I&D, on 09/24/2018 patient underwent a triple-vessel coronary artery bypass grafting using the left internal mammary artery to left anterior setting coronary artery, a reverse greater saphenous vein graft from the aorta to the first diagonal coronary artery, a reverse greater saphenous vein graft from the aorta to the first obtuse marginal coronary artery, and aortic valve replacement using a #27 mm pericardial bioprosthesis magna ease and exclusion of his left atrial appendage using a 40 mm Atriclip. Past Anesthesia/Blood Transfusion Reactions: No Reported Reaction Additional Past Anesthesia/Blood Transfusion Reaction / Comment(s): hx no blood transfusion Past Psychological History: No Psychological Hx Reported Smoking Status: Former smoker Additional Past Alcohol Use History / Comment(s): Patient was smoker of 2 packs per day for 20 years about 5 years ago. He denies any marijuana or street drug or alcohol use. He worked in the past in an [employer]. He is currently living with his ex-. No pets in the home. - Past Family History Mother Family Medical History: Cancer Additional Family Medical History / Comment(s): LUNG CANCER Father Family Medical History: No Reported History Medications and Allergies Home Medications Medication Instructions Recorded Confirmed Type Cholecalciferol [Vitamin D3] 2,000 unit PO DAILY@0900 08/12/18 10/14/18 History Acetaminophen Tab [Tylenol] 650 mg PO Q6HR PRN 10/08/18 10/14/18 History Nitroglycerin Sl Tabs [Nitrostat] 0.4 mg SUBLINGUAL Q5M PRN tab 10/11/18 10/14/18 Rx Apixaban [Eliquis] 5 mg PO BID@0900,2100 10/14/18 10/14/18 History Aspirin 81 mg PO DAILY@0900 10/14/18 10/14/18 History Furosemide [Lasix] 40 mg PO BID@0600,1400 10/14/18 10/14/18 History Ipratropium-Albuterol Nebulize 3 ml INHALATION RT-Q8H 10/14/18 10/14/18 History [Duoneb 0.5 mg-3 mg/3 ml Soln] Lisinopril [Zestril] 2.5 mg PO BID@1200,1400 10/14/18 10/14/18 History Metoprolol Tartrate [Lopressor] 100 mg PO BID@0900,2100 10/14/18 10/14/18 History Pantoprazole [Protonix] 40 mg PO AC-BRKFST@0600 10/14/18 10/14/18 History Sennosides [Senokot] 8.6 mg PO DAILY@0900 10/14/18 10/14/18 History metFORMIN HCL [Glucophage] 500 mg PO BID@0900,1700 10/14/18 10/14/18 History predniSONE See Taper PO DAILY 10/14/18 10/14/18 History Allergies Allergy/AdvReac Type Severity Reaction Status Date / Time No Known Allergies Allergy Verified 10/14/18 12:42 Physical Exam Vitals: Vital Signs Temp Pulse Pulse Pulse Resp BP BP 10/15/18 10:29 97.1 F L 77 18 126/59 10/15/18 08:00 98.1 F 72 20 101/57 10/15/18 07:54 76 10/15/18 07:45 72 10/15/18 04:00 83 83 18 109/64 10/15/18 00:00 98.3 F 82 82 18 115/56 10/14/18 20:00 97.4 F L 92 92 18 125/62 10/14/18 19:23 113 H 18 125/84 Pulse Ox 10/15/18 10:29 97 10/15/18 08:00 96 10/15/18 07:54 10/15/18 07:45 97 10/15/18 04:00 96 10/15/18 00:00 95 10/14/18 20:00 93 L 10/14/18 19:23 97 Intake and Output 10/15/18 10/15/18 10/15/18 06:59 14:59 22:59 Intake Total 1150 100 Output Total 400 830 Balance -400 320 100 Intake: IV 1150 100 Output: Urine 400 680 Estimated Blood Loss 150 Other: Voiding Method Urinal Weight 113.8 kg GENERAL EXAM: Intubated, sedated, in no apparent distress. HEAD: Normocephalic. EYES: Normal reaction of pupils, equal size. NOSE: Clear with pink turbinates. THROAT: Oral endotracheal and gastric tube secured in place. No erythema or exudates. NECK: No masses, no JVD. CHEST: Prevena intact. Mediastinal chest tube intact. LUNGS: Equal air entry with crackles in the bilateral posterior bases. CVS: S1 and S2 normal with no audible murmur, regular rhythm. ABDOMEN: No hepatosplenomegaly, normal bowel sounds, no guarding or rigidity. SPINE: No scoliosis or deformity SKIN: No rashes CENTRAL NERVOUS SYSTEM: No focal deficits, tone is normal in all 4 extremities. EXTREMITIES: There is no peripheral edema. No clubbing, no cyanosis. Peripheral pulses are intact. Results - Laboratory Findings CBC and BMP: 10/15/18 03:04 10/15/18 03:04 ABG ABG pH 7.45 (7.35-7.45) 10/15/18 16:41 ABG pCO2 52 mmHg (35-45) H 10/15/18 16:41 ABG pO2 80 mmHg (83-108) L 10/15/18 16:41 ABG O2 Saturation 96.7 % (94-97) 10/15/18 16:41 PT/INR, D-dimer PT 12.4 sec (9.0-12.0) H 10/14/18 13:20 INR 1.2 (<1.2) H 10/14/18 13:20 Abnormal lab findings: Abnormal Labs 10/14/18 10/14/18 10/14/18 13:20 13:20 13:20 WBC 11.4 H RBC 3.00 L Hgb 8.2 L Hct 27.4 L MCHC 30.0 L RDW 16.8 H Neutrophils # 10.6 H Lymphocytes # 0.4 L ESR 76 H PT 12.4 H INR 1.2 H ABG pCO2 ABG pO2 ABG HCO3 ABG Total CO2 Chloride 90 L Carbon Dioxide 36 H BUN 50 H Glucose 145 H POC Glucose (mg/dL) Magnesium 2.4 H Troponin I C-Reactive Protein 32.1 H 10/14/18 10/14/18 10/15/18 13:20 21:26 03:04 WBC RBC 3.05 L Hgb 8.5 L Hct 28.9 L MCHC 29.5 L RDW 16.4 H Neutrophils # 8.2 H Lymphocytes # ESR PT INR ABG pCO2 ABG pO2 ABG HCO3 ABG Total CO2 Chloride Carbon Dioxide BUN Glucose POC Glucose (mg/dL) 149 H Magnesium Troponin I 0.069 H* C-Reactive Protein 10/15/18 10/15/18 10/15/18 03:04 06:18 16:03 WBC RBC Hgb Hct MCHC RDW Neutrophils # Lymphocytes # ESR PT INR ABG pCO2 ABG pO2 ABG HCO3 ABG Total CO2 Chloride 94 L Carbon Dioxide 35 H BUN 38 H Glucose 102 H POC Glucose (mg/dL) 132 H 150 H Magnesium Troponin I C-Reactive Protein 10/15/18 16:41 WBC RBC Hgb Hct MCHC RDW Neutrophils # Lymphocytes # ESR PT INR ABG pCO2 52 H ABG pO2 80 L ABG HCO3 36 H ABG Total CO2 38 H Chloride Carbon Dioxide BUN Glucose POC Glucose (mg/dL) Magnesium Troponin I C-Reactive Protein - Diagnostic Findings Chest x-ray: image reviewed Assessment and Plan Assessment: Impression: #1 Oozing from the chest wall incision. Computed tomography scan revealed fluid collection subcutaneous tissues extending to the sternotomy line inferiorly into the anterior mediastinum. Suspect hemorrhage. There is diastasis disease of the sternotomy line. There is moderate pericardial effusion. He is status post sternal reconstruction with plating and removal of sternal wires. Postoperative day #0. #2 Mechanical ventilation support required postoperatively as an expected outcome of surgery. #3 Recent coronary artery bypass grafting and valve replacement on 09/24/2018 including a SNELL to the LAD, reverse saphenous vein graft to the first diagonal artery, reverse saphenous vein graft to the obtuse marginal artery and an elective aortic valve replacement utilizing a #27 mm paracardial bioprosthesis magna ease valve. Discharged to [facility]CF on 09/30/2089 #4 Readmission following surgery for acute hypoxic respiratory failure and atrial flutter with rapid ventricular response. Discharged to ECF on 10/11/2018. #5 morbid obesity. #6 Chronic obstructive pulmonary disease with baseline FEV1 value 64% of predicted. #7 Hypertension. #8 Hyperlipidemia. #9 Diabetes mellitus. Plan: The patient was seen and evaluated by Dr. Holland. Vent settings, chest x-ray and and arterial blood gases were reviewed. We'll continue the current settings for now assist control 12, tidal M6 100, FiO2 50% and a PEEP of 5. Continue propofol for sedation throughout the evening. Continue DuoNeb inhalations every 4 hours. Begin daily interruption of sedation in the a.m. We will continue monitor him closely in the intensive care unit. We'll continue to follow and make further recommendations based on his clinical status. I, the cosigning physician, performed a history & physical examination of the patient. Lungs sounds with few scattered rhonchi, crackles in the posterior bases. Maintaining good O2 saturations in the 90s on 50% FiO2 via the mechanical ventilator. I discussed the assessment and plan of care with my nurse practitioner, Christine Betancourt. I attest to the above consultation as dictated by her. Time with Patient: Greater than 30
[2018-10-15] MEDS: KETOROLAC 30 MG/ML 1 ML VIAL IVP SCH (18:40)
[2018-10-15] MEDS: ceFAZolin IN SWFI 2 GM/20 ML SYRINGE IVP SCH (18:40)
[2018-10-15] MEDS ORDERED: POTASSIUM CHLORIDE ER 20 MEQ TAB.ER PO SCH (21:00)
[2018-10-15 21:31] LABS: Glucose,Whole Blood 129 mg/dL (75-99)
--- NOTE | 2018-10-15 22:46 | XR ---
EXAM: XR Chest, 1 View CLINICAL HISTORY: Enteric tube placement TECHNIQUE: Frontal view of the chest. COMPARISON: Chest x-ray dated 10/14/2018 FINDINGS: Lungs: Mild pulmonary vascular congestion. Pleural space: Probable small left-sided pleural effusion. No pneumothorax. Heart: Atrial appendage clip is noted. Cardiac valve prosthesis is noted. Heart is enlarged. Mediastinum: Unremarkable. Bones/joints: Evidence of prior median sternotomy. Tubes, lines and devices: Enteric tube is seen coursing into the stomach however the tip is not visualized. Endotracheal tube within the thoracic inlet which appears to be in appropriate position. IMPRESSION: 1. Mild pulmonary vascular congestion. 2. Probable small left-sided pleural effusion. 3. Support devices appear to be in appropriate position.
[2018-10-15 23:27] LABS: Glucose,Whole Blood 119 mg/dL (75-99)
--- NOTE | 2018-10-16 00:09 | P.HPIM ---
History of Present Illness H&P Date: 10/15/18 Chief Complaint: Draining from the sternal site History of present complaint: This is a very pleasant 67 year old patient who was recently discharged from hospital following coronary bypass and aortic valve replacement with a prosthetic valve. Patient was then readmitted on October 08 with a diagnosis of acute CHF exacerbation and atrial flutter fibrillation uncontrolled. Patient subsequently discharged to the [facility]. Patient was now readmitted following discharge from the lower sternal site. The serosanguineous discharge and some bloody component to it. Computed tomography scan showed old possible blood or abscess collection. Patient was taken to the operating room. Late in the evening I spoke to Dr. cerda the. He did not feel there was any infection there. He did remove blood clots.. "A 72 and a more suitable. Patient is brought back to the ICU. Is on the ventilator. With the FiO2 50 and a PEEP of 8. Sauceda catheter in place. On propofol. Telemetry showing sinus rhythm. Review of systems: Cannot be done as patient is at the lethargic postoperatively Past medical history: Coronary artery disease, aortic valve replacement, essential hypertension, hyperlipidemia, obesity. Social history: , smoked 2 packs a day for 40 years stopped in 2013. Alcohol none Family history: Lung cancer Physical examination: VITAL SIGNS: 96.8, 89, 12, 118/54, 94% on the ventilator GENERAL: BMI 39.3, laying in bed, lethargic. EYES: Pupils equal. Conjunctiva normal. HEENT: External appearance of nose and ears normal, oral cavity grossly normal. NECK: JVD unable to assess, masses palpable. HEART: Heart sounds irregular, edema present. LUNGS: Respiratory rate increased, diminished breath sounds. With wheezing ABDOMEN: Soft, nontender, liver spleen not palpable, no masses palpable. LYMPHATICS: No lymph nodes palpable in the axilla and neck. PSYCH: Lethargic, intubated NEUROLOGICAL: Cranial nerves grossly intact; no facial asymmetry, power and sensation grossly intact. Chest wall patient noted drainage in place Investigations [reviewed in the clinical context] White count 11.4, hemoglobin 8.2, platelets 446, potassium 4.6, BUN 50, creatinine 1.05 Computed tomography scan of the chest shows fluid collection behind the lower sternal Assessment: -Hematoma acute at the site of lower sternal incision from The sternal wires had broken down on taken off by the patient, and it hemo- pericardium from the same. -chronic congestive heart failure exacerbation, diastolic dysfunction. -Coronary artery disease with recent coronary bypass and aortic valve replacement with prosthetic valve -Essential hypertension -Hyperlipidemia -Obesity BMI 39.3 . Acute postop ventilator support -COPD exacerbation in an ex-smoker Plan: Home medications are resumed. Patient currently on the ventilator. Discussed with Dr. cerda from cardiothoracic he does see any evidence of infection. Antibiotics have been held off. Patient was seen by food and beverage assistant manager Dr. Hyman. Stressed be added. Follow H&H. Past Medical History Past Medical History: Coronary Artery Disease (CAD), COPD, Hyperlipidemia, Hypertension Additional Past Medical History / Comment(s): Coronary artery disease and previous history of Bicuspid aortic valve with moderate to severe aortic valve stenosis with a peak gradient of 60 mmHg and a mean gradient of 30 mmHg across the aortic valve and moderate aortic valve regurgitation. The patient underwent coronary artery bypass surgery and aortic valve replacement with a prosthetic valve, Morbid obesity with a BMI of 42.9 kg/m, COPD, hyperlipidemia, hypertension, diabetes mellitus History of Any Multi-Drug Resistant Organisms: None Reported Past Surgical History: Cardiac Valve Replacement, Coronary Bypass/CABG, Heart Catheterization, Orthopedic Surgery Additional Past Surgical History / Comment(s): ORIF LEFT ANKLE, LACERATION REPAIR OF LEFT FOREARM,RT BREAST I&D, on 09/24/2018 patient underwent a triple- vessel coronary artery bypass grafting using the left internal mammary artery to left anterior setting coronary artery, a reverse greater saphenous vein graft from the aorta to the first diagonal coronary artery, a reverse greater saphenous vein graft from the aorta to the first obtuse marginal coronary artery, and aortic valve replacement using a #27 mm pericardial bioprosthesis magna ease and exclusion of his left atrial appendage using a 40 mm Atriclip. Past Anesthesia/Blood Transfusion Reactions: No Reported Reaction Additional Past Anesthesia/Blood Transfusion Reaction / Comment(s): hx no blood transfusion Past Psychological History: No Psychological Hx Reported Smoking Status: Former smoker Additional Past Alcohol Use History / Comment(s): Patient was smoker of 2 packs per day for 20 years about 5 years ago. He denies any marijuana or street drug or alcohol use. He worked in the past in an [employer]. He is currently living with his ex-. No pets in the home. - Past Family History Mother Family Medical History: Cancer Additional Family Medical History / Comment(s): LUNG CANCER Father Family Medical History: No Reported History Medications and Allergies Home Medications Medication Instructions Recorded Confirmed Type Cholecalciferol [Vitamin D3] 2,000 unit PO DAILY@0900 08/12/18 10/14/18 History Acetaminophen Tab [Tylenol] 650 mg PO Q6HR PRN 10/08/18 10/14/18 History Nitroglycerin Sl Tabs [Nitrostat] 0.4 mg SUBLINGUAL Q5M PRN tab 10/11/18 10/14/18 Rx Apixaban [Eliquis] 5 mg PO BID@0900,2100 10/14/18 10/14/18 History Aspirin 81 mg PO DAILY@0900 10/14/18 10/14/18 History Furosemide [Lasix] 40 mg PO BID@0600,1400 10/14/18 10/14/18 History Ipratropium-Albuterol Nebulize 3 ml INHALATION RT-Q8H 10/14/18 10/14/18 History [Duoneb 0.5 mg-3 mg/3 ml Soln] Lisinopril [Zestril] 2.5 mg PO BID@1200,1400 10/14/18 10/14/18 History Metoprolol Tartrate [Lopressor] 100 mg PO BID@0900,2100 10/14/18 10/14/18 History Pantoprazole [Protonix] 40 mg PO AC-BRKFST@0600 10/14/18 10/14/18 History Sennosides [Senokot] 8.6 mg PO DAILY@0900 10/14/18 10/14/18 History metFORMIN HCL [Glucophage] 500 mg PO BID@0900,1700 10/14/18 10/14/18 History predniSONE See Taper PO DAILY 10/14/18 10/14/18 History Allergies Allergy/AdvReac Type Severity Reaction Status Date / Time No Known Allergies Allergy Verified 10/14/18 12:42 Physical Exam Vitals: Vital Signs Temp Pulse Pulse Pulse Resp BP BP 10/15/18 10:29 97.1 F L 77 18 126/59 10/15/18 08:00 98.1 F 72 20 101/57 10/15/18 07:54 76 03/26/19 07:45 72 10/15/18 04:00 83 83 18 109/64 10/15/18 00:00 98.3 F 82 82 18 115/56 10/14/18 20:00 97.4 F L 92 92 18 125/62 10/14/18 19:23 113 H 18 125/84 Pulse Ox 10/15/18 10:29 97 10/15/18 08:00 96 10/15/18 07:54 10/15/18 07:45 97 10/15/18 04:00 96 10/15/18 00:00 95 10/14/18 20:00 93 L 10/14/18 19:23 97 Intake and Output 10/15/18 10/15/18 10/15/18 06:59 14:59 22:59 Intake Total 1150 100 Output Total 400 830 Balance -400 320 100 Intake: IV 1150 100 Output: Urine 400 680 Estimated Blood Loss 150 Other: Voiding Method Urinal Weight 113.8 kg Results CBC & Chem 7: 10/15/18 03:04 10/15/18 03:04 Labs: Abnormal Lab Results - Last 24 Hours (Table) 10/14/18 10/15/18 10/15/18 Range/Units 21:26 03:04 03:04 RBC 3.05 L (4.30-5.90) m/uL Hgb 8.5 L (13.0-17.5) gm/dL Hct 28.9 L (39.0-53.0) % MCHC 29.5 L (31.0-37.0) g/dL RDW 16.4 H (11.5-15.5) % Neutrophils # 8.2 H (1.3-7.7) k/uL Chloride 94 L (98-107) mmol/L Carbon Dioxide 35 H (22-30) mmol/L BUN 38 H (9-20) mg/dL Glucose 102 H (74-99) mg/dL POC Glucose (mg/dL) 149 H (75-99) mg/dL 10/15/18 Range/Units 06:18 RBC (4.30-5.90) m/uL Hgb (13.0-17.5) gm/dL Hct (39.0-53.0) % MCHC (31.0-37.0) g/dL RDW (11.5-15.5) % Neutrophils # (1.3-7.7) k/uL Chloride (98-107) mmol/L Carbon Dioxide (22-30) mmol/L BUN (9-20) mg/dL Glucose (74-99) mg/dL POC Glucose (mg/dL) 132 H (75-99) mg/dL Thrombosis Risk Factor Assmnt - Choose All That Apply Each Factor Represents 1 point: Swollen legs (current) Each Risk Factor Represents 2 Points: Age 61-74 years, Major surgery Thrombosis Risk Factor Assessment Total Risk Factor Score: 5 Thrombosis Risk Factor Assessment Level: High Risk
[2018-10-16] MEDS: ceFAZolin IN SWFI 2 GM/20 ML SYRINGE IVP SCH (00:22)
[2018-10-16] MEDS: KETOROLAC 30 MG/ML 1 ML VIAL IVP SCH ×2 (00:22→06:05)
[2018-10-16] MEDS: HEPARIN SODIUM,PORCINE 5,000 UNIT/ML 1 ML VIAL SQ SCH ×3 (00:22→15:40)
[2018-10-16] MEDS: methylPREDNISolone SOD SUCCI 40 MG/ML 1 ML VIAL IV SCH ×3 (00:25→15:40)
[2018-10-16] MEDS: PROPOFOL 1,000 MG in EMPTY BAG 1 BAG IV SCH ×3 (00:29→07:44)
[2018-10-16] MEDS: DEXTROSE 5%-0.45% NACL 1,000 ML IV SCH ×2 (02:54→21:03)
[2018-10-16] MEDS: IPRATROPIUM-ALBUTEROL 3 ML NEB INHALATION SCH ×6 (03:19→23:05)
[2018-10-16 04:50] LABS: Albumin 2.6 g/dL (3.5-5.0); Calcium 7.9 mg/dL (8.4-10.2); Magnesium 2.5 mg/dL (1.6-2.3); Phosphorus 3.5 mg/dL (2.5-4.5); Potassium 4.1 mmol/L (3.5-5.1); Total Bilirubin 0.8 mg/dL (0.2-1.3); Total Protein 4.9 g/dL (6.3-8.2)
[2018-10-16 05:28] LABS: Anisocytosis Slight; Basophils % (A) 0 %; Eosinophils # (A) 0.1 k/uL (0-0.7); Eosinophils % (A) 1 %; HCT 21.6 % (39.0-53.0); Hypochromasia Marked; Lymphocytes # (A) 0.3 k/uL (1.0-4.8); Lymphocytes % (A) 4 %; MCH 27.6 pg (25.0-35.0); MCHC 30.1 g/dL (31.0-37.0); MCV 91.8 fL (80.0-100.0); Mean Platelet Volume 7.4; Monocytes # (A) 0.2 k/uL (0-1.0); Monocytes % (A) 3 %; Neutrophils # (A) 5.9 k/uL (1.3-7.7); Neutrophils % (A) 92 %; Platelet Count 317 k/uL (150-450); Poikilocytosis Moderate; RBC 2.35 m/uL (4.30-5.90); RDW 16.9 % (11.5-15.5); WBC 6.4 k/uL (3.8-10.6)
[2018-10-16 05:36] LABS: HGB 6.5 gm/dL (13.0-17.5)
[2018-10-16] MEDS: INSULIN ASPART (NovoLOG) 100 UNIT/ML VIAL SQ SCH ×3 (06:04→21:03)
[2018-10-16 06:05] LABS: Glucose,Whole Blood 169 mg/dL (75-99)
[2018-10-16] MEDS: FUROSEMIDE 40 MG TAB PO SCH (06:06)
[2018-10-16 08:12] LABS: ABG Base Excess 12.6 mmol/L; ABG HCO3 36 mmol/L (21-25); ABG PCO2 49 mmHg (35-45); ABG PH 7.47 (7.35-7.45); ABG PO2 120 mmHg (83-108); ABG TCO2 38 mmol/L (19-24)
--- NOTE | 2018-10-16 08:30 | XR ---
EXAMINATION TYPE: XR chest 1V portable DATE OF EXAM: 10/16/2018 COMPARISON: 10/15/2018 HISTORY: Ventilatory dependent respiratory failure. TECHNIQUE: Single frontal view of the chest is obtained. FINDINGS: Post CABG changes the chest are noted. Enteric tube and endotracheal tube are stable in po sition. There is a large Cardia mediastinal silhouette. Small layering left pleural effusion, trace l ayering right pleural effusion and bibasilar airspace disease has slightly worsened in the interim. N o sizable pneumothorax or pulmonary vascular congestion seen. IMPRESSION: Mildly worsening small left and trace right pleural effusions with associated bibasilar airspace disease, likely atelectasis.
[2018-10-16] MEDS ORDERED: CALCIUM CHLORIDE 100 MG/ML 10 ML SYRINGE IVP ONE (09:00)
[2018-10-16] MEDS ORDERED: PANTOPRAZOLE 40 MG/10 ML VIAL IV SCH (09:00)
[2018-10-16] MEDS: METOPROLOL TARTRATE 50 MG TAB PO SCH ×2 (09:06→21:03)
[2018-10-16] MEDS: ASPIRIN 81 MG PO SCH (09:07)
[2018-10-16] MEDS: SENNOSIDES 8.6 MG TAB PO SCH (09:07)
--- NOTE | 2018-10-16 10:12 | CONS ---
CONSULTATION REASON FOR CONSULTATION: History of atrial fibrillation, status post CABG and reoperation for sternal destruction. Mr. Johnson is a 67-year-old gentleman who underwent aortic valve replacement with a tissue valve and 3-vessel bypass two to three weeks ago. He was recently hospitalized with elevated liver function tests and abnormal rhythm in the form of atrial fibrillation. I stopped the amiodarone, placed him on a beta misbah. Liver functions have improved and he was sent back to his extended care facility on Eliquis 5 mg b.i.d. and aspirin 81 mg daily. However, he became hypotensive, unresponsive, was brought into the hospital, was found to have some drainage from his sternal wound and underwent surgery yesterday by Dr. Enriquez with reinforcement of his sternal wound with titanium plating system. Post procedure, he is still on the ventilator but maintaining sinus rhythm. His liver functions have improved. He seems to be doing better hemodynamically stable. However, his hemoglobin has dropped and he is receiving blood transfusion. Eliquis has been held. PAST MEDICAL HISTORY: 1. Recent aortic valve replacement with tissue valve and 3-vessel bypass. 2. Hypertension. 3. Hyperlipidemia. 4. Probable underlying sleep apnea. 5. He is known to have hypertension, type 2 diabetes and hyperlipidemia. MEDICATIONS: Medications at home include Eliquis 5 mg b.i.d., aspirin 81 mg daily, Zestril 2.5 mg daily, Lopressor 100 mg b.i.d., Protonix, metformin 500 mg b.i.d. and prednisone taper. ALLERGIES: None. PHYSICAL EXAMINATION: On examination, blood pressure today is 120/70, pulse rate 80 per minute, sinus. HEENT: Unremarkable. Fundus was not examined by me. Neck is supple. There is JVD of 1 cm. No carotid bruit. Heart exam reveals S1, S2 with a short systolic murmur. Lungs reveal respiratory assisted breath sounds. Abdomen is soft. Lower extremities reveal diminished pulses. Central nervous system assessment was not performed. Patient is deeply sedated. IMPRESSION: 1. Status post aortic valve replacement with a tissue valve and 3-vessel bypass surgery. 2. Status post reoperation for sternal destruction. 3. Paroxysmal atrial fibrillation. 4. Probable sleep apnea syndrome. 5. Hypertension. 6. Type 2 diabetes mellitus. RECOMMENDATIONS: For now, avoid any Eliquis since patient is receiving blood transfusion and hemoglobin is low. Down the road when hemoglobin is stable, Eliquis can be resumed. The patient is hemodynamically stable and ventilator management is per Dr. Holland. We will continue supportive care and based on clinical course I will make further recommendations. Prognosis remains guarded. Thank you very much for the consult. JUSTIN / NIDHI: [id number] /
[2018-10-16] MEDS: PIPERACILLIN-TAZOBACTAM 3.375 GM in SODIUM CHLORIDE 0.9% 100 ML IVPB SCH ×2 (10:27→16:46)
[2018-10-16] MEDS ORDERED: DEXMEDETOMIDINE/0.9% NACL(PMX) 400 MCG in EMPTY BAG 1 BAG IV SCH (10:45)
--- NOTE | 2018-10-16 10:46 | P.PN ---
Subjective Progress Note Date: 10/16/18 Principal diagnosis: Status post reconstruction of sternum using tritium plating system. Postoperative day #1 This is a 67-year-old gentleman who follows with Dr. Don as his primary care physician. He has a past medical history of hypertension, hyperlipidemia, morbid obesity, previous tobacco dependence, chronic obstructive pulmonary disease with FEV1 value 64% of predicted. He was also recently found to have significant coronary artery disease and on 09/24/2018 that he had undergone a artery bypass surgery He had done well and was subsequently discharged on 09/30/2018.. He re presented here on 10/08/2018 WITH increased shortness of breath and atrial fibrillation with a rapid ventricular response and was treated for acute hypoxic respiratory failure and rate control with amiodarone. He was again discharged to an extended care facility on 10/11/2018. He remains presented here yesterday after developing oozing from his sternal wound. Computed tomography scan of the chest revealed fluid collection subcutaneous tissues extending to the sternotomy line inferiorly into the anterior mediastinum. Suspected abscess versus hemorrhage. There was a diastases of the sternotomy line. Moderate pericardial effusion and a small left pleural effusion. Today he had undergone a sternal reconstruction with plating and removal of the sternal wires by Dr. Enriquez. He is seen in consultation today in the intensive care unit postoperatively. He is intubated and on the mechanical ventilator. Current settings are assist control 12, tidal volume 600, FiO2 50% and a PEEP of 5. Arterial blood gases reveal pO2 of 80, pCO2 of 52 and a pH of 7.45. Chest x-ray shows bilateral atelectasis. He currently has a D5 and half- normal saline at 70 ML's per hour. He's been initiated on Kefzol for 2 doses. He is on heparin subcutaneous for DVT prophylaxis and DuoNeb inhalations every 4 hours. Preop labs revealed a WBC 9.8. Hemoglobin 8.5. Platelet count 407,000. Creatinine 0.84. He'll remain sedated with propofol throughout the evening. Patient was reevaluated today on 10/16/2018, remains on mechanical ventilations, his FiO2 is down to 40%, tidal volume remains at 600, assist control rate is 14. PEEP is at 5. Patient is sedated, presently receiving a unit of packed RBCs for low hemoglobin of 6.5. Patient is on propofol which I will discontinue once the blood is given, and I plan to address weaning and possibly extubation this morning. ABG on 50% FiO2 showed a pO2 of 120 pCO2 of 49 pH of 7.47. Electrolytes are normal renal profile is normal bicarb is 35. CBC showed a hemoglobin of 6.5 WBC count 6.4. Chest x-ray showed worsening small left pleura l effusion, and by basilar atelectasis or possible aspirated disease, hence I have recommended empiric Zosyn to be started. Objective - Vital Signs Vital signs: Vital Signs Temp 99.4 F 10/16/18 09:05 Pulse 86 10/16/18 09:05 Resp 16 10/16/18 09:05 BP 123/55 10/16/18 09:05 Pulse Ox 97 10/16/18 09:05 Intake & Output 10/15/18 10/16/18 10/16/18 18:59 06:59 18:59 Intake Total 1320 1097.499 269.575 Output Total 1065 655 215 Balance 255 442.499 54.575 Weight 115.5 kg Intake: IV 1320 840 170 Dextrose 5%-0.45% NaCl 1, 70 840 170 000 ml @ 50 mls/hr IV . Q20H TAYO Rx#:[id number] Intake, IV Titration 257.499 99.575 Amount Propofol 1,000 mg In 257.499 99.575 Empty Bag 1 bag @ Titrate IV .Q0M TAYO Rx#: [id number] Blood Product 0 Rc As-3 Unit 0 [id number] Output: Chest Tube Drainage 60 80 5 Mediastinal 60 80 5 Urine 855 575 210 Estimated Blood Loss 150 Other: Voiding Method Indwelling Catheter Indwelling Catheter ABP, PAP, CO, CI - Last Documented Arterial Blood Pressure 113/51 - Exam GENERAL EXAM: Physical exam revealed a 67-year-old white male, on mechanical ventilation. Sedated, on propofol drip. HEAD: Normocephalic. Atraumatic. EYES: Normal reaction of pupils, equal size. NOSE: Clear with pink turbinates. THROAT: Oral endotracheal and gastric tube secured in place. No erythema or exudates. NECK: No masses, no JVD. CHEST: Diminished breath sounds at the bases, minimal crackles at the bases, mediastinal chest tube seems to be intact. LUNGS: Crackles and diminished breath sounds at the bases. CVS: S1 and S2 normal with no audible murmur, regular rhythm. ABDOMEN: No hepatosplenomegaly, normal bowel sounds, no guarding or rigidity. SPINE: No scoliosis or deformity SKIN: No rashes CENTRAL NERVOUS SYSTEM: Fully sedated cannot be addressed. EXTREMITIES: There is no peripheral edema. No clubbing, no cyanosis. Peripheral pulses are intact. - Labs CBC & Chem 7: 10/16/18 05:15 10/16/18 04:30 Labs: Abnormal Lab Results - Last 24 Hours (Table) 10/14/18 10/15/18 10/15/18 Range/Units 13:20 16:03 16:41 RBC (4.30-5.90) m/uL Hgb (13.0-17.5) gm/dL Hct (39.0-53.0) % MCHC (31.0-37.0) g/dL RDW (11.5-15.5) % Lymphocytes # (1.0-4.8) k/uL ABG pH (7.35-7.45) ABG pCO2 52 H (35-45) mmHg ABG pO2 80 L (83-108) mmHg ABG HCO3 36 H (21-25) mmol/L ABG Total CO2 38 H (19-24) mmol/L ABG O2 Saturation (94-97) % Carbon Dioxide (22-30) mmol/L BUN (9-20) mg/dL Glucose (74-99) mg/dL POC Glucose (mg/dL) 150 H (75-99) mg/dL Calcium (8.4-10.2) mg/dL Magnesium (1.6-2.3) mg/dL ALT (21-72) U/L Total Protein (6.3-8.2) g/dL Albumin (3.5-5.0) g/dL Crossmatch See Detail 10/15/18 10/15/18 10/16/18 Range/Units 21:15 23:24 04:30 RBC (4.30-5.90) m/uL Hgb (13.0-17.5) gm/dL Hct (39.0-53.0) % MCHC (31.0-37.0) g/dL RDW (11.5-15.5) % Lymphocytes # (1.0-4.8) k/uL ABG pH (7.35-7.45) ABG pCO2 (35-45) mmHg ABG pO2 (83-108) mmHg ABG HCO3 (21-25) mmol/L ABG Total CO2 (19-24) mmol/L ABG O2 Saturation (94-97) % Carbon Dioxide 35 H (22-30) mmol/L BUN 32 H (9-20) mg/dL Glucose 134 H (74-99) mg/dL POC Glucose (mg/dL) 129 H 119 H (75-99) mg/dL Calcium 7.9 L (8.4-10.2) mg/dL Magnesium 2.5 H (1.6-2.3) mg/dL ALT 85 H (21-72) U/L Total Protein 4.9 L (6.3-8.2) g/dL Albumin 2.6 L (3.5-5.0) g/dL Crossmatch 10/16/18 10/16/18 10/16/18 Range/Units 05:15 05:51 08:09 RBC 2.35 L (4.30-5.90) m/uL Hgb 6.5 L* D (13.0-17.5) gm/dL Hct 21.6 L (39.0-53.0) % MCHC 30.1 L (31.0-37.0) g/dL RDW 16.9 H (11.5-15.5) % Lymphocytes # 0.3 L (1.0-4.8) k/uL ABG pH 7.47 H (7.35-7.45) ABG pCO2 49 H (35-45) mmHg ABG pO2 120 H (83-108) mmHg ABG HCO3 36 H (21-25) mmol/L ABG Total CO2 38 H (19-24) mmol/L ABG O2 Saturation 100.0 H (94-97) % Carbon Dioxide (22-30) mmol/L BUN (9-20) mg/dL Glucose (74-99) mg/dL POC Glucose (mg/dL) 169 H (75-99) mg/dL Calcium (8.4-10.2) mg/dL Magnesium (1.6-2.3) mg/dL ALT (21-72) U/L Total Protein (6.3-8.2) g/dL Albumin (3.5-5.0) g/dL Crossmatch Microbiology - Last 24 Hours (Table) 10/15/18 03:04 Blood Culture - Preliminary Blood No Growth after 24 hours 10/15/18 03:04 Blood Culture - Preliminary Blood No Growth after 24 hours 10/15/18 14:12 Gram Stain - Preliminary Chest Wound Culture - Preliminary 10/15/18 14:12 Anaerobic Culture - Preliminary Chest Assessment and Plan Assessment: #1 status post sternal reconstruction with plating and removal of sternal wires. Postoperative day #1 #2 Mechanical ventilation support required postoperatively as an expected outcome of surgery. Patient is presently on propofol drip, I plan to discontinue the propofol once the blood is fully transfused, and will awaken the patient, and address weaning renters, and possible place the patient on a weaning mode of mechanical ventilation/pressure support and CPAP, and anticipate extubation later today #3 Recent coronary artery bypass grafting and aortic valve replacement on 09/24/2018 including a SNELL to the LAD, reverse saphenous vein graft to the first diagonal artery, reverse saphenous vein graft to the obtuse marginal artery and an elective aortic valve replacement utilizing a #27 mm paracardial bioprosthesis magna ease valve. Discharged to [facility] on 09/30/2089 #4 Readmission following surgery for acute hypoxic respiratory failure and atrial flutter with rapid ventricular response. Discharged to [facility] on 10/11/2018. #5 morbid obesity. #6 Chronic obstructive pulmonary disease with baseline FEV1 value 64% of predicted. #7 Hypertension. #8 Hyperlipidemia. #9 Diabetes mellitus. 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 Recommendation: Continue present ventilatory support, started the patient on empiric Zosyn, mostly because of the abnormalities noted on the chest x-ray today, transfuse the patient with a unit of packed RBCs for hemoglobin of 6.5, continue resident bronchodilators, steroids, we will likely proceed with weaning parameters once the patient is off propofol, and may or may not consider weaning later today. It all depends on how the patient does once he comes off propofol, and depends on his weaning parameters. Zosyn was initiated today. Continue GI and DVT prophylaxis, critical care time is 35 minutes. Time with Patient: Greater than 30
[2018-10-16 11:58] LABS: Glucose,Whole Blood 169 mg/dL (75-99)
[2018-10-16] MEDS ORDERED: INSULIN ASPART (NovoLOG) 100 UNIT/ML VIAL SQ SCH (12:00)
--- NOTE | 2018-10-16 12:12 | P.PN ---
Subjective Progress Note Date: 10/16/18 Principal diagnosis: Mechanical destruction of the sternum, status post aortic valve replacement and coronary artery bypass grafting 3 weeks ago. Previous medical history of bicus pid aortic valve with moderate to severe aortic stenosis status post aortic valve replacement with 27 mm magna ease pericardial bioprosthesis, coronary artery disease with left main disease status post triple coronary artery bypass graft surgery, hypertension, hyperlipidemia, morbid obesity, previous tobacco dependence, and mild COPD with FEV1 64% of predicted. POD #1 drainage of wound hematoma and reconstruction of the sternum using Tritium plating system. Postoperative acute blood loss anemia, unexpected but potential outcome . Patient is currently lying in the intensive care unit still mechanically ventilated in no acute distress. Does wake up and follows commands off sedation. Hemodynamically stable on no inotropes or pressors. Hemoglobin was a bit low this morning at 6.5 and patient will receive 1 unit packed red blood cells. No new concerns. Objective - Vital Signs Vital signs: Vital Signs Temp 98.9 F 10/16/18 04:00 Pulse 77 10/16/18 07:48 Resp 14 10/16/18 07:00 BP 126/59 10/15/18 10:29 Pulse Ox 97 10/16/18 07:00 Intake & Output 10/15/18 10/16/18 10/16/18 18:59 06:59 18:59 Intake Total 1320 1097.499 169.575 Output Total 1065 655 60 Balance 255 442.499 109.575 Weight 115.5 kg Intake: IV 1320 840 70 Dextrose 5%-0.45% NaCl 1, 70 840 70 000 ml @ 70 mls/hr IV . [id number] TAYO Rx#:[id number] Intake, IV Titration 257.499 99.575 Amount Propofol 1,000 mg In 257.499 99.575 Empty Bag 1 bag @ Titrate IV .Q0M TAYO Rx#: [id number] Output: Chest Tube Drainage 60 80 Mediastinal 60 80 Urine 855 575 60 Estimated Blood Loss 150 Other: Voiding Method Indwelling Catheter Indwelling Catheter ABP, PAP, CO, CI - Last Documented Arterial Blood Pressure 118/56 - Constitutional General appearance: Present: no acute distress, obese - Respiratory Details: Lungs sounds diminished bilaterally. Respirations even, nonlabored on mechanical ventilation. 8.0 ET tube present, 24 at the lip. Current ventilator settings assist control mode, FiO2 50%, tidal volume 600, respiratory rate 12, PEEP 5. Oxygen saturation has been in the high 90s on those settings. - Cardiovascular Details: S1, S2 present. Regular rate and rhythm, sinus rhythm on telemetry. Sternum is stable post surgery with Prevena wound VAC in place. Mediastinal chest tube present to continuous wall suction, 50 mL serosanguineous drainage overnight, 160 mL since surgery. Palpable peripheral pulses bilaterally. Generalized trace edema present. No calf pain or tenderness noted. Left brachial arterial line present. Surgical bra, heart hugger, antiembolism stockings, SCDs present. - Gastrointestinal Gastrointestinal Comment(s): Abdomen soft, nontender, nondistended. Hypoactive bowel sounds present 4 quadrants. OG tube present to low intermittent suction with minimal drainage. - Genitourinary Genitourinary Comment(s): Sauceda present draining clear, yellow urine. Output 40-75 mL/h overnight. - Integumentary Integumentary Comment(s): Skin is warm and dry with evidence of good perfusion. Prevena wound VAC present to sternal incision, dry intact dressing covering mediastinal chest tube site. - Neurologic Neurologic: Present: CNII-XII intact - Psychiatric Psychiatric Comment(s): Sedated with propofol mechanical ventilation. - Allied health notes Allied health notes reviewed: nursing - Labs CBC & Chem 7: 10/16/18 05:15 10/16/18 04:30 Labs: Abnormal Lab Results - Last 24 Hours (Table) 10/14/18 10/15/18 10/15/18 Range/Units 13:20 16:03 16:41 RBC (4.30-5.90) m/uL Hgb (13.0-17.5) gm/dL Hct (39.0-53.0) % MCHC (31.0-37.0) g/dL RDW (11.5-15.5) % Lymphocytes # (1.0-4.8) k/uL ABG pH (7.35-7.45) ABG pCO2 52 H (35-45) mmHg ABG pO2 80 L (83-108) mmHg ABG HCO3 36 H (21-25) mmol/L ABG Total CO2 38 H (19-24) mmol/L ABG O2 Saturation (94-97) % Carbon Dioxide (22-30) mmol/L BUN (9-20) mg/dL Glucose (74-99) mg/dL POC Glucose (mg/dL) 150 H (75-99) mg/dL Calcium (8.4-10.2) mg/dL Magnesium (1.6-2.3) mg/dL ALT (21-72) U/L Total Protein (6.3-8.2) g/dL Albumin (3.5-5.0) g/dL Crossmatch See Detail 10/15/18 10/15/18 10/16/18 Range/Units 21:15 23:24 04:30 RBC (4.30-5.90) m/uL Hgb (13.0-17.5) gm/dL Hct (39.0-53.0) % MCHC (31.0-37.0) g/dL RDW (11.5-15.5) % Lymphocytes # (1.0-4.8) k/uL ABG pH (7.35-7.45) ABG pCO2 (35-45) mmHg ABG pO2 (83-108) mmHg ABG HCO3 (21-25) mmol/L ABG Total CO2 (19-24) mmol/L ABG O2 Saturation (94-97) % Carbon Dioxide 35 H (22-30) mmol/L BUN 32 H (9-20) mg/dL Glucose 134 H (74-99) mg/dL POC Glucose (mg/dL) 129 H 119 H (75-99) mg/dL Calcium 7.9 L (8.4-10.2) mg/dL Magnesium 2.5 H (1.6-2.3) mg/dL ALT 85 H (21-72) U/L Total Protein 4.9 L (6.3-8.2) g/dL Albumin 2.6 L (3.5-5.0) g/dL Crossmatch 10/16/18 10/16/18 10/16/18 Range/Units 05:15 05:51 08:09 RBC 2.35 L (4.30-5.90) m/uL Hgb 6.5 L* D (13.0-17.5) gm/dL Hct 21.6 L (39.0-53.0) % MCHC 30.1 L (31.0-37.0) g/dL RDW 16.9 H (11.5-15.5) % Lymphocytes # 0.3 L (1.0-4.8) k/uL ABG pH 7.47 H (7.35-7.45) ABG pCO2 49 H (35-45) mmHg ABG pO2 120 H (83-108) mmHg ABG HCO3 36 H (21-25) mmol/L ABG Total CO2 38 H (19-24) mmol/L ABG O2 Saturation 100.0 H (94-97) % Carbon Dioxide (22-30) mmol/L BUN (9-20) mg/dL Glucose (74-99) mg/dL POC Glucose (mg/dL) 169 H (75-99) mg/dL Calcium (8.4-10.2) mg/dL Magnesium (1.6-2.3) mg/dL ALT (21-72) U/L Total Protein (6.3-8.2) g/dL Albumin (3.5-5.0) g/dL Crossmatch Microbiology - Last 24 Hours (Table) 10/15/18 03:04 Blood Culture - Preliminary Blood No Growth after 24 hours 10/15/18 03:04 Blood Culture - Preliminary Blood No Growth after 24 hours 10/15/18 14:12 Gram Stain - Preliminary Chest Wound Culture - Preliminary 10/15/18 14:12 Anaerobic Culture - Preliminary Chest - Imaging and Cardiology Chest x-ray: report reviewed, image reviewed Assessment and Plan Assessment: 1. Mechanical destruction of the sternum, status post reconstruction using Tritium plating system with placement of mediastinal chest tube for drainage of wound hematoma 2. History of bicuspid aortic valve with moderate to severe aortic stenosis status post aortic valve replacement 09/24/18 3. History of coronary artery disease with left main disease status post triple-vessel coronary artery bypass graft surgery 09/24/18 4. Recent readmission for atrial flutter with rapid ventricular response, on Eliquis for anticoagulation which is currently on hold 5. Hypertension 6. Hyperlipidemia 7. Morbid obesity 8. Tobacco dependence 9. Mild COPD with FEV1 64% of predicted 10. Postoperative acute blood loss anemia Plan: 1. Continue aspirin, KIKA inhibitor, beta misbah therapy. Will re-add statin. 2. Wean from mechanical ventilation as able. Ventilator management per pulmonology. Once extubated, encourage incentive spirometry 10 times every hour while awake. 3. Once extubated, increase activity as tolerated. PT/OT following. 4. Monitor daily labs and x-rays. Will transfuse 1 unit packed red blood cells followed by 20 mg IV Lasix today. Will give 1 g calcium today. 5. IV steroids, bronchodilators per pulmonology. 6. We will continue chest tube, Sauceda catheter for another 24 hours. 7. GI prophylaxis with Protonix, DVT prophylaxis with subcu heparin, SCDs. 8. Pain control with current medication regimen. 9. Will restart Eliquis for anticoagulation when able. 10. Medical management of other comorbid conditions per primary, cardiology, pulmonology. 11. Fluid drained from pericardium sent for culture, will follow results. 12. More recommendations to follow.
[2018-10-16] MEDS ORDERED: FUROSEMIDE 10 MG/ML 2 ML VIAL IV ONE (12:13)
[2018-10-16] MEDS: LISINOPRIL 2.5 MG TAB PO SCH ×2 (12:14→14:16)
[2018-10-16] MEDS ORDERED: ACETAMINOPHEN TAB 325 MG TAB PO PRN ×2 (12:16)
[2018-10-16] MEDS ORDERED: traMADol 50 MG TAB PO PRN (12:17)
[2018-10-16 15:32] LABS: Anisocytosis Slight; HCT 24.3 % (39.0-53.0); HGB 7.3 gm/dL (13.0-17.5); Hypochromasia Marked; MCH 26.8 pg (25.0-35.0); MCHC 30.2 g/dL (31.0-37.0); MCV 88.9 fL (80.0-100.0); Mean Platelet Volume 7.1; Platelet Count 299 k/uL (150-450); Poikilocytosis Marked; RBC 2.73 m/uL (4.30-5.90); RDW 17.3 % (11.5-15.5); WBC 6.7 k/uL (3.8-10.6)
[2018-10-16 17:33] LABS: Glucose,Whole Blood 164 mg/dL (75-99)
--- NOTE | 2018-10-16 20:05 | PN ---
PROGRESS NOTE DATE OF SERVICE: 10/16/2018 PRESENTING COMPLAINT: Draining from the sternal site. INTERVAL HISTORY: This patient is status post recent aortic valve replacement for a bicuspid valve and coronary artery bypass. Admitted after bleeding from the lower sternotomy site. Hematoma and hemopericardium were evacuated. The patient was extubated this morning, on nasal cannula. Lying in bed, somewhat tired. Answering questions. The patient is in sinus rhythm. He has a Sauceda catheter. Able to answer simple questions. REVIEW OF SYSTEMS: Done for constitutional, cardiovascular, GI, pulmonary; relevant findings as above. The patient is short of breath on examination. CURRENT MEDICATIONS: Reviewed. They include: 1. DuoNeb. 2. Aspirin. 3. Subcutaneous heparin. 4. IV Solu-Medrol. 5. IV Zosyn. PHYSICAL EXAMINATION: Temperature 98.9, pulse 70, respiration 22, blood pressure 103/55, pulse ox 96% on 4 L. GENERAL APPEARANCE: Lying in bed, tired-appearing, awake. EYES: Pupils equal. Conjunctivae normal. HEENT: External appearance of nose and ears normal. Oral cavity dry. NECK: JVD unable to assess. Mass not palpable. RESPIRATORY: Effort increased. LUNGS: Distant breath sounds. CARDIOVASCULAR: First and second sounds normal. Edema present. ABDOMEN: Soft, non-tender. Liver and spleen not palpable. Sauceda catheter in place. PSYCHIATRY: Patient is lethargic but able to answer simple questions. NEUROLOGICAL: Moving all 4 limbs. INVESTIGATIONS: White count 6.7, hemoglobin 7.3. Accu-Cheks are noted. ASSESSMENT: 1. Hematoma and hemopericardium at the lower sternal site that was evacuated. 2. Acute blood loss anemia from above. Patient did receive a unit of blood. 3. Chronic congestive heart failure from diastolic dysfunction. 4. Coronary artery disease with recent coronary artery bypass and aortic valve replacement with a prosthetic valve for a bicuspid aortic valve. 5. Essential hypertension. 6. Hyperlipidemia. 7. Obesity; body mass index 39.3. 8. Status post ventilator support. 9. Acute chronic obstructive pulmonary disease exacerbation in an ex-smoker. PLAN: Continue current medication and treatment plan. Fluoroscope Operator had added IV Zosyn to minimize any infection. The patient is encouraged to sit up. Diet will be advanced as tolerated. MMODL / IJN: [id number] /
[2018-10-16 20:30] LABS: Glucose,Whole Blood 192 mg/dL (75-99)
[2018-10-16] MEDS: ATORVASTATIN 20 MG TAB PO SCH (21:03)
--- NOTE | 2018-10-16 22:52 | P.PN ---
Subjective Progress Note Date: 10/16/18 This is a 67-year-old male with past medical history significant for recent triple vessel coronary artery bypass grafting surgery with placement of his left internal mammary artery to his left anterior ascending coronary artery, a reverse greater saphenous vein graft from the aorta to the first diagonal coronary artery, a reverse greater saphenous vein graft from the aorta to the first obtuse marginal coronary artery, and an elective aortic valve replacement using bioprosthesis on 09/24/2018. Subsequently on 10/08/2018 the patient presented back to the [facility] emergency center and was found to have a tachycardia arrhythmia with a heart rate in the 150s which was possi jered atrial flutter. He was admitted for further evaluation and workup at that time and was subsequently discharged to [facility] for further rehabilitation needs on 10/11/2018. While at [facility], the patient noticed reddish colored drainage from his distal sternal incision. The patient denies any fevers, chills, or recent trauma. While in the emergency department a computed tomography scan of his chest was completed which demonstrated a subcutaneous fluid collection extending to the sternotomy line inferiorly into the anterior mediastinum. It also demonstrated a moderate pericardial effusion and a small left pleural fluid collection. Patient was found to be afebrile, white count initially 11.4 with repeated 9.8, creatinine 0.84. C-reactive protein 32.1 and sed rate 76. ProBNP 643, troponin 0.069. Patient was given a dose of vancomycin in the emergency center. He has been admitted to the surgical unit and he is scheduled for sternal reconstruction with plating with Dr. Enriquez today. Patient is also noted to have a wound to the right lower extremity most likely from LACHO drain fro m vein harvesting. 10/16/2018 patient is sitting up in the chair feeling somewhat better today. He has been able to take in some clear liquids and would certainly like to increase his diet. He is denying shortness of breath and pain is well controlled. Nursing staff relates no acute concerns. Objective - Vital Signs Vital signs: Vital Signs Temp 98.0 F 10/16/18 20:00 Pulse 68 10/16/18 22:00 Resp 19 10/16/18 22:00 BP 124/71 10/16/18 22:00 Pulse Ox 98 10/16/18 22:00 Intake & Output 10/16/18 10/16/18 10/17/18 06:59 18:59 06:59 Intake Total 7066.680 8593.109 200 Output Total 655 1350 295 Balance 442.499 -47.891 -95 Weight 115.5 kg Intake: IV 840 820 200 Dextrose 5%-0.45% NaCl 1, 840 620 200 000 ml @ 50 mls/hr IV . Q20H TAYO Rx#:[id number] Piperacillin-Tazobactam 3 200 .375 gm In Sodium Chloride 0.9% 100 ml @ 25 mls/hr IVPB Q8HR TAYO Rx# :[id number] Intake, IV Titration 257.499 172.109 Amount Dexmedetomidine/0.9% NaCl 15.015 (Pmx) 400 mcg In Empty Bag 1 bag @ As Directed IV .Q0M TAYO Rx#:[id number] Propofol 1,000 mg In 257.499 157.094 Empty Bag 1 bag @ Titrate IV .Q0M TAYO Rx#: [id number] Blood Product 310 Rc As-3 Unit 310 [id number] Output: Chest Tube Drainage 80 35 40 Mediastinal 80 35 40 Urine 575 1315 255 Other: Voiding Method Indwelling Catheter Indwelling Catheter Indwelling Catheter ABP, PAP, CO, CI - Last Documented Arterial Blood Pressure 126/58 - Exam Gen: This is a morbidly obese 67-year-old male.He has been extubated and is now sitting upright in the chair seeming to be comfortable taking in some clear liquids. HEENT: Head is atraumatic, normocephalic. Pupils equal, round. Sclerae is anicteric. Conjunctiva pink. His memories of the mouth are moist. Patient has a large lesion on the right side of his tongue. No thrush noted. NECK: Supple. No JVD. No lymphadenopathy. No thyromegaly. LUNGS: Diminished lung sounds. No accessory muscle usage No intercostal retractions. HEART: Regular rate and rhythm. No murmur. the dressing to the anterior chest wall is less thr in place. ABDOMEN: Morbidly obese. Soft. Bowel sounds are present. No masses. No tenderness. EXTREMITIES: 2+ pedal edema. Dorsalis pedis +[address] to the right lower extremity. NEUROLOGICAL: Patient is awake, alert and oriented x3. - Labs CBC & Chem 7: 03/27/19 15:20 10/16/18 04:30 Labs: Abnormal Lab Results - Last 24 Hours (Table) 10/14/18 10/15/18 10/16/18 Range/Units 13:20 23:24 04:30 RBC (4.30-5.90) m/uL Hgb (13.0-17.5) gm/dL Hct (39.0-53.0) % MCHC (31.0-37.0) g/dL RDW (11.5-15.5) % Lymphocytes # (1.0-4.8) k/uL ABG pH (7.35-7.45) ABG pCO2 (35-45) mmHg ABG pO2 (83-108) mmHg ABG HCO3 (21-25) mmol/L ABG Total CO2 (19-24) mmol/L ABG O2 Saturation (94-97) % Carbon Dioxide 35 H (22-30) mmol/L BUN 32 H (9-20) mg/dL Glucose 134 H (74-99) mg/dL POC Glucose (mg/dL) 119 H (75-99) mg/dL Calcium 7.9 L (8.4-10.2) mg/dL Magnesium 2.5 H (1.6-2.3) mg/dL ALT 85 H (21-72) U/L Total Protein 4.9 L (6.3-8.2) g/dL Albumin 2.6 L (3.5-5.0) g/dL Crossmatch See Detail 10/16/18 10/16/18 10/16/18 Range/Units 05:15 05:51 08:09 RBC 2.35 L (4.30-5.90) m/uL Hgb 6.5 L* D (13.0-17.5) gm/dL Hct 21.6 L (39.0-53.0) % MCHC 30.1 L (31.0-37.0) g/dL RDW 16.9 H (11.5-15.5) % Lymphocytes # 0.3 L (1.0-4.8) k/uL ABG pH 7.47 H (7.35-7.45) ABG pCO2 49 H (35-45) mmHg ABG pO2 120 H (83-108) mmHg ABG HCO3 36 H (21-25) mmol/L ABG Total CO2 38 H (19-24) mmol/L ABG O2 Saturation 100.0 H (94-97) % Carbon Dioxide (22-30) mmol/L BUN (9-20) mg/dL Glucose (74-99) mg/dL POC Glucose (mg/dL) 169 H (75-99) mg/dL Calcium (8.4-10.2) mg/dL Magnesium (1.6-2.3) mg/dL ALT (21-72) U/L Total Protein (6.3-8.2) g/dL Albumin (3.5-5.0) g/dL Crossmatch 10/16/18 10/16/18 10/16/18 Range/Units 11:54 15:20 17:06 RBC 2.73 L (4.30-5.90) m/uL Hgb 7.3 L (13.0-17.5) gm/dL Hct 24.3 L (39.0-53.0) % MCHC 30.2 L (31.0-37.0) g/dL RDW 17.3 H (11.5-15.5) % Lymphocytes # (1.0-4.8) k/uL ABG pH (7.35-7.45) ABG pCO2 (35-45) mmHg ABG pO2 (83-108) mmHg ABG HCO3 (21-25) mmol/L ABG Total CO2 (19-24) mmol/L ABG O2 Saturation (94-97) % Carbon Dioxide (22-30) mmol/L BUN (9-20) mg/dL Glucose (74-99) mg/dL POC Glucose (mg/dL) 169 H 164 H (75-99) mg/dL Calcium (8.4-10.2) mg/dL Magnesium (1.6-2.3) mg/dL ALT (21-72) U/L Total Protein (6.3-8.2) g/dL Albumin (3.5-5.0) g/dL Crossmatch 10/16/18 Range/Units 20:26 RBC (4.30-5.90) m/uL Hgb (13.0-17.5) gm/dL Hct (39.0-53.0) % MCHC (31.0-37.0) g/dL RDW (11.5-15.5) % Lymphocytes # (1.0-4.8) k/uL ABG pH (7.35-7.45) ABG pCO2 (35-45) mmHg ABG pO2 (83-108) mmHg ABG HCO3 (21-25) mmol/L ABG Total CO2 (19-24) mmol/L ABG O2 Saturation (94-97) % Carbon Dioxide (22-30) mmol/L BUN (9-20) mg/dL Glucose (74-99) mg/dL POC Glucose (mg/dL) 192 H (75-99) mg/dL Calcium (8.4-10.2) mg/dL Magnesium (1.6-2.3) mg/dL ALT (21-72) U/L Total Protein (6.3-8.2) g/dL Albumin (3.5-5.0) g/dL Crossmatch Microbiology - Last 24 Hours (Table) 10/15/18 14:12 Gram Stain - Preliminary Chest Wound Culture - Preliminary 10/15/18 03:04 Blood Culture - Preliminary Blood No Growth after 24 hours 10/15/18 03:04 Blood Culture - Preliminary Blood No Growth after 24 hours 10/15/18 14:12 Anaerobic Culture - Preliminary Chest Laboratory Results WBC 6.7 k/uL (3.8-10.6) 10/16/18 15:20 RBC 2.73 m/uL (4.30-5.90) L 10/16/18 15:20 Hgb 7.3 gm/dL (13.0-17.5) L 10/16/18 15:20 Hct 24.3 % (39.0-53.0) L 10/16/18 15:20 MCV 88.9 fL (80.0-100.0) 10/16/18 15:20 MCH 26.8 pg (25.0-35.0) 10/16/18 15:20 MCHC 30.2 g/dL (31.0-37.0) L 10/16/18 15:20 RDW 17.3 % (11.5-15.5) H 10/16/18 15:20 Plt Count 299 k/uL (150-450) 10/16/18 15:20 Neutrophils % 92 % 10/16/18 05:15 Lymphocytes % 4 % 10/16/18 05:15 Monocytes % 3 % 10/16/18 05:15 Eosinophils % 1 % 10/16/18 05:15 Basophils % 0 % 10/16/18 05:15 Neutrophils # 5.9 k/uL (1.3-7.7) 10/16/18 05:15 Lymphocytes # 0.3 k/uL (1.0-4.8) L 10/16/18 05:15 Monocytes # 0.2 k/uL (0-1.0) 10/16/18 05:15 Eosinophils # 0.1 k/uL (0-0.7) 10/16/18 05:15 Basophils # 0.0 k/uL (0-0.2) 10/16/18 05:15 Hypochromasia Marked 10/16/18 15:20 Poikilocytosis Marked 10/16/18 15:20 Anisocytosis Slight 10/16/18 15:20 ESR 76 mm/hr (0-15) H 10/14/18 13:20 PT 12.4 sec (9.0-12.0) H 10/14/18 13:20 INR 1.2 (<1.2) H 10/14/18 13:20 APTT 23.8 sec (22.0-30.0) 10/14/18 13:20 Sample Site [place] 10/16/18 08:09 ABG pH 7.47 (7.35-7.45) H 10/16/18 08:09 ABG pCO2 49 mmHg (35-45) H 10/16/18 08:09 ABG pO2 120 mmHg (83-108) H 10/16/18 08:09 ABG HCO3 36 mmol/L (21-25) H 10/16/18 08:09 ABG Total CO2 38 mmol/L (19-24) H 10/16/18 08:09 ABG O2 Saturation 100.0 % (94-97) H 10/16/18 08:09 ABG Base Excess 12.6 mmol/L 10/16/18 08:09 Pete Test Yes 10/16/18 08:09 FiO2 50 % 10/16/18 08:09 Sodium 138 mmol/L (137-145) 10/16/18 04:30 Potassium 4.1 mmol/L (3.5-5.1) 10/16/18 04:30 Chloride 99 mmol/L (98-107) 10/16/18 04:30 Carbon Dioxide 35 mmol/L (22-30) H 10/16/18 04:30 Anion Gap 4 mmol/L 10/16/18 04:30 BUN 32 mg/dL (9-20) H 10/16/18 04:30 Creatinine 1.04 mg/dL (0.66-1.25) 10/16/18 04:30 Est GFR (CKD-EPI)AfAm 87 (>60 ml/min/1.73 sqM) 10/16/18 04:30 Est GFR (CKD-EPI)NonAf 75 (>60 ml/min/1.73 sqM) 10/16/18 04:30 Glucose 134 mg/dL (74-99) H 10/16/18 04:30 POC Glucose (mg/dL) 192 mg/dL (75-99) H 10/16/18 20:26 POC Glu Gallery Assistant ID Chadwick Jaeger 10/16/18 20:26 Calcium 7.9 mg/dL (8.4-10.2) L 10/16/18 04:30 Phosphorus 3.5 mg/dL (2.5-4.5) 10/16/18 04:30 Magnesium 2.5 mg/dL (1.6-2.3) H 10/16/18 04:30 Total Bilirubin 0.8 mg/dL (0.2-1.3) 10/16/18 04:30 AST 25 U/L (17-59) 10/16/18 04:30 ALT 85 U/L (21-72) H 10/16/18 04:30 Alkaline Phosphatase 110 U/L (38-126) 10/16/18 04:30 Troponin I 0.069 ng/mL (0.000-0.034) H* 10/14/18 13:20 C-Reactive Protein 32.1 mg/L (<10.0) H 10/14/18 13:20 NT-Pro-B Natriuret Pep 643 pg/mL 10/14/18 13:20 Total Protein 4.9 g/dL (6.3-8.2) L 10/16/18 04:30 Albumin 2.6 g/dL (3.5-5.0) L 10/16/18 04:30 Blood Type A Positive 10/14/18 13:20 Blood Type Recheck No 10/14/18 13:20 Antibody Screen NEGATIVE 10/14/18 13:20 Crossmatch See Detail 10/14/18 13:20 Spec Expiration Date 10/17/2018 - 231910/14/18 13:20 Microbiology 10/15/18 14:12 Chest Gram Stain - Preliminary 10/15/18 14:12 Chest Wound Culture - Preliminary 10/15/18 03:04 Blood Blood Culture - Preliminary No Growth after 24 hours 10/15/18 03:04 Blood Blood Culture - Preliminary No Growth after 24 hours 10/15/18 14:12 Chest Anaerobic Culture - Preliminary Assessment and Plan (1) Status post aortic valve replacement Current Visit: Yes Status: Acute Code(s): Z95.2 - PRESENCE OF PROSTHETIC HEART VALVE SNOMED Code(s): 5221190285653 (2) Disruption of closure of sternum or sternotomy Narrative/Plan: 67-year-old male with obesit developed the mechanical disruption of his median sternotomy state for his open heart procedure. He was taken to the operating room with no evidence of any active infection being seen at the site. The patient is without evidence of fever, chills or significant leukocytosis. Gram stains are all negative and no evidence of any purulence or infection was found time of his surgery. Routine surgical prophylaxis only has been utilized so far cultures are being monitored but the patient does not appear to have active infection. Continue local wound care to the thigh site. Current Visit: Yes Status: Acute Code(s): T81.32XA - DISRUPTION OF INTERNAL OPERATION (SURGICAL) WOUND, NEC, INIT SNOMED Code(s): 68131767
[2018-10-17] MEDS: PIPERACILLIN-TAZOBACTAM 3.375 GM in SODIUM CHLORIDE 0.9% 100 ML IVPB SCH ×3 (00:18→16:22)
[2018-10-17] MEDS: HEPARIN SODIUM,PORCINE 5,000 UNIT/ML 1 ML VIAL SQ SCH ×3 (00:18→17:26)
[2018-10-17] MEDS: methylPREDNISolone SOD SUCCI 40 MG/ML 1 ML VIAL IV SCH (00:18)
[2018-10-17] MEDS: IPRATROPIUM-ALBUTEROL 3 ML NEB INHALATION SCH ×5 (03:14→19:52)
[2018-10-17 05:39] LABS: Anisocytosis Slight; Basophils % (A) 0 %; Eosinophils % (A) 0 %; HCT 25.1 % (39.0-53.0); HGB 7.3 gm/dL (13.0-17.5); Hypochromasia Marked; Lymphocytes # (A) 0.4 k/uL (1.0-4.8); Lymphocytes % (A) 5 %; MCH 26.4 pg (25.0-35.0); MCV 90.9 fL (80.0-100.0); Mean Platelet Volume 6.9; Monocytes # (A) 0.3 k/uL (0-1.0); Monocytes % (A) 4 %; Neutrophils # (A) 6.9 k/uL (1.3-7.7); Neutrophils % (A) 91 %; Platelet Count 313 k/uL (150-450); Poikilocytosis Marked; RBC 2.77 m/uL (4.30-5.90); RDW 17.2 % (11.5-15.5); WBC 7.6 k/uL (3.8-10.6)
[2018-10-17 06:17] LABS: ALT 56 U/L (21-72); AST 19 U/L (17-59); Albumin 2.7 g/dL (3.5-5.0); Alkaline Phosphatase 103 U/L (38-126); Anion Gap 7 mmol/L; Blood Urea Nitrogen 25 mg/dL (9-20); Calcium 8.4 mg/dL (8.4-10.2); Carbon Dioxide 33 mmol/L (22-30); Chloride 98 mmol/L (98-107); Glucose 178 mg/dL (74-99); Potassium 4.2 mmol/L (3.5-5.1); Sodium 138 mmol/L (137-145); Total Protein 5.3 g/dL (6.3-8.2)
[2018-10-17 06:20] LABS: Glucose,Whole Blood 212 mg/dL (75-99)
[2018-10-17] MEDS: INSULIN ASPART (NovoLOG) 100 UNIT/ML VIAL SQ SCH ×4 (06:50→20:50)
--- NOTE | 2018-10-17 07:41 | P.PN ---
Subjective Progress Note Date: 10/17/18 Principal diagnosis: Mechanical destruction of the sternum, status post aortic valve replacement and coronary artery bypass grafting 3 weeks ago. Previous medical history of bicus pid aortic valve with moderate to severe aortic stenosis status post aortic valve replacement with 27 mm magna ease pericardial bioprosthesis, coronary artery disease with left main disease status post triple coronary artery bypass graft surgery, chronic diastolic dysfunction, hypertension, hyperlipidemia, morbid obesity, previous tobacco dependence, and mild COPD with FEV1 64% of predicted. POD #2 drainage of wound hematoma and reconstruction of the sternum using Tritium plating system. Postoperative acute blood loss anemia, unexpected but potential outcome . The patient is currently sitting up in bed in no acute distress in the intensive care unit. He was successfully extubated yesterday at 12:06. He denies pain or shortness of breath. He is actively using his Heart Hugger when coughing. He was up in the chair yesterday afternoon. Received 1 unit packed red blood cells yesterday with improvement in hemoglobin from 6.5 to 7.3 No new complaints. Objective - Vital Signs Vital signs: Vital Signs Temp 98.1 F 10/17/18 04:00 Pulse 101 H 10/17/18 07:00 Resp 17 10/17/18 07:00 BP 129/74 10/17/18 07:00 Pulse Ox 95 10/17/18 07:00 Intake & Output 10/16/18 10/17/18 10/17/18 18:59 06:59 18:59 Intake Total 9929.912 0379 50 Output Total 1350 670 50 Balance -47.891 460 0 Weight 115 kg Intake: IV 820 700 50 Dextrose 5%-0.45% NaCl 1, 620 600 50 000 ml @ 50 mls/hr IV . Q20H [facility] Rx#:[id number] Piperacillin-Tazobactam 3 200 100 .375 gm In Sodium Chloride 0.9% 100 ml @ 25 mls/hr IVPB Q8HR [facility]O Rx# :[id number] Intake, IV Titration 172.109 0 Amount Dexmedetomidine/0.9% NaCl 15.015 (Pmx) 400 mcg In Empty Bag 1 bag @ As Directed IV .Q0M [facility]O Rx#:[id number] Propofol 1,000 mg In 157.094 0 Empty Bag 1 bag @ Titrate IV .Q0M TAYO Rx#: [id number] Oral 430 Blood Product 310 Rc As-3 Unit 310 [id number] Output: Chest Tube Drainage 35 30 Mediastinal 35 30 Urine 1315 640 50 Other: Voiding Method Indwelling Catheter Indwelling Catheter ABP, PAP, CO, CI - Last Documented Arterial Blood Pressure 126/58 - Constitutional General appearance: Present: cooperative, no acute distress, obese - Respiratory Details: Lungs sounds diminished bilaterally. Respirations even, nonlabored. Currently on 4 L nasal cannula with oxygen saturation 95%. Able to achieve 750 mL on his incentive spirometry. Strong cough. - Cardiovascular Details: S1, S2 present. Regular rate and rhythm, sinus rhythm on telemetry. Sternum is stable post surgery with Prevena wound VAC in place. Mediastinal chest tube present to continuous wall suction, 10 mL serosanguineous drainage overnight, 90 mL in the last 24 hours. Palpable peripheral pulses bilaterally. Generalized trace edema present. No calf pain or tenderness noted. Surgical bra, heart hugger in place with patient demonstrating appropriate use. Antiembolism stockings, SCDs present. - Gastrointestinal Gastrointestinal Comment(s): Abdomen soft, nontender, nondistended, obese. Hypoactive bowel sounds present 4 quadrants. Positive flatus, negative bowel movement. Tolerating clear liquids. - Genitourinary Genitourinary Comment(s): Edward present draining cloudy yellow urine with sediment present. Output 35-60 mL/h overnight. - Integumentary Integumentary Comment(s): Skin is warm and dry with evidence of good perfusion. Prevena wound VAC present to sternal incision, dry intact dressing covering mediastinal chest tube site. - Neurologic Neurologic: Present: CNII-XII intact - Musculoskeletal Musculoskeletal: Present: generalized weakness, strength equal bilaterally - Psychiatric Psychiatric: Present: A&O x's 3, appropriate affect, intact judgment & insight - Allied health notes Allied health notes reviewed: nursing - Labs CBC & Chem 7: 10/17/18 04:57 10/17/18 04:57 Labs: Abnormal Lab Results - Last 24 Hours (Table) 10/14/18 10/16/18 10/16/18 Range/Units 13:20 08:09 11:54 RBC (4.30-5.90) m/uL Hgb (13.0-17.5) gm/dL Hct (39.0-53.0) % MCHC (31.0-37.0) g/dL RDW (11.5-15.5) % Lymphocytes # (1.0-4.8) k/uL ABG pH 7.47 H (7.35-7.45) ABG pCO2 49 H (35-45) mmHg ABG pO2 120 H (83-108) mmHg ABG HCO3 36 H (21-25) mmol/L ABG Total CO2 38 H (19-24) mmol/L ABG O2 Saturation 100.0 H (94-97) % Carbon Dioxide (22-30) mmol/L BUN (9-20) mg/dL Glucose (74-99) mg/dL POC Glucose (mg/dL) 169 H (75-99) mg/dL Total Protein (6.3-8.2) g/dL Albumin (3.5-5.0) g/dL Crossmatch See Detail 10/16/18 10/16/18 10/16/18 Range/Units 15:20 17:06 20:26 RBC 2.73 L (4.30-5.90) m/uL Hgb 7.3 L (13.0-17.5) gm/dL Hct 24.3 L (39.0-53.0) % MCHC 30.2 L (31.0-37.0) g/dL RDW 17.3 H (11.5-15.5) % Lymphocytes # (1.0-4.8) k/uL ABG pH (7.35-7.45) ABG pCO2 (35-45) mmHg ABG pO2 (83-108) mmHg ABG HCO3 (21-25) mmol/L ABG Total CO2 (19-24) mmol/L ABG O2 Saturation (94-97) % Carbon Dioxide (22-30) mmol/L BUN (9-20) mg/dL Glucose (74-99) mg/dL POC Glucose (mg/dL) 164 H 192 H (75-99) mg/dL Total Protein (6.3-8.2) g/dL Albumin (3.5-5.0) g/dL Crossmatch 10/17/18 10/17/18 10/17/18 Range/Units 04:57 04:57 06:15 RBC 2.77 L (4.30-5.90) m/uL Hgb 7.3 L (13.0-17.5) gm/dL Hct 25.1 L (39.0-53.0) % MCHC 29.0 L (31.0-37.0) g/dL RDW 17.2 H (11.5-15.5) % Lymphocytes # 0.4 L (1.0-4.8) k/uL ABG pH (7.35-7.45) ABG pCO2 (35-45) mmHg ABG pO2 (83-108) mmHg ABG HCO3 (21-25) mmol/L ABG Total CO2 (19-24) mmol/L ABG O2 Saturation (94-97) % Carbon Dioxide 33 H (22-30) mmol/L BUN 25 H (9-20) mg/dL Glucose 178 H (74-99) mg/dL POC Glucose (mg/dL) 212 H (75-99) mg/dL Total Protein 5.3 L (6.3-8.2) g/dL Albumin 2.7 L (3.5-5.0) g/dL Crossmatch Microbiology - Last 24 Hours (Table) 10/15/18 03:04 Blood Culture - Preliminary Blood No Growth after 48 hours 10/15/18 03:04 Blood Culture - Preliminary Blood No Growth after 48 hours 10/15/18 14:12 Gram Stain - Preliminary Chest Wound Culture - Preliminary - Imaging and Cardiology Chest x-ray: image reviewed Assessment and Plan Assessment: 1. Mechanical destruction of the sternum, status post reconstruction using T ritium plating system with placement of mediastinal chest tube for drainage of wound hematoma 2. History of bicuspid aortic valve with moderate to severe aortic stenosis status post aortic valve replacement 09/24/18 3. History of coronary artery disease with left main disease status post triple-vessel coronary artery bypass graft surgery 09/24/18 4. Recent readmission for atrial flutter with rapid ventricular response, on Eliquis for anticoagulation which is currently on hold 5. Chronic diastolic heart failure 6. Hypertension 7. Hyperlipidemia 8. Morbid obesity 9. Tobacco dependence 10. Mild COPD with FEV1 64% of predicted 11. Postoperative acute blood loss anemia, status post transfusion of 1 unit packed red blood cells Plan: 1. Continue aspirin, statin, KIKA inhibitor, beta misbah therapy. Will restart amiodarone for afib prophylaxis, 200 mg twice daily. 2. Wean oxygen as tolerated. Encourage incentive spirometry 10 times every hour while awake. 3. Increase activity as tolerated. PT/OT following. 4. Monitor daily labs and x-rays. No transfusions today. 5. IV steroids, bronchodilators per pulmonology. Will discuss benefit of chest US to evaluate pleural effusions with Dr. Holland. 6. Infectious disease consulted, appreciate recommendations. No recommendation for antibiotics at this time as sternal fluid drainage did not appear infect ious, no leukocytosis, afebrile, no cultures with growth currently. 7. Will discontinue chest tube. Keep edward catheter for another 24 hours. 8. GI prophylaxis with Protonix, DVT prophylaxis with subcu heparin, SCDs. 9. Pain control with current medication regimen. 10. Will restart Eliquis for anticoagulation when able. 11. Medical management of other comorbid conditions per primary, cardiology, pulmonology. 12. Fluid drained from pericardium sent for culture, will follow results. 13. May transfer to cardiac stepdown unit from our standpoint. 14. More recommendations to follow. Time with Patient: Greater than 30
--- NOTE | 2018-10-17 08:21 | XR ---
EXAMINATION TYPE: XR chest 1V portable DATE OF EXAM: 10/17/2018 Comparison: 10/16/2018 Clinical History: 67-year-old male postoperative evaluation Findings: Median sternotomy wires and plate and screw fixation hardware is demonstrated. Heart remains mild mod erately enlarged with diffuse interstitial prominence. Underlying systolic to moderate effusions, lef t greater than right with adjacent bibasilar densities. Interval extubation and removal of NG tube. Impression: Interval extubation. Otherwise, stable [id number] cardiomegaly and likely pulmonary vascular co ngestion. Stable small to moderate effusions with adjacent atelectasis and/or consolidation.
--- NOTE | 2018-10-17 10:10 | PN ---
PROGRESS NOTE Mr. Johnson is status post aortic valve replacement with three-vessel bypass. He also had a redo operation because of sternal destruction by Dr. Enriquez. He developed significant anemia, received blood transfusion. He has been extubated yesterday. He is doing better today, maintaining sinus rhythm. Breath sounds are still diminished bilaterally. He may have some pleural effusion. He is more comfortable breathing easier. Hemodynamically stable. Vital signs are stable. JVD is 1 cm. No carotid bruit. S1, S2 with a short systolic murmur at the base is audible. Lungs reveal diminished breath sounds. Abdomen is soft. Lower extremities reveal diminished pulses. Central nervous system grossly no focal deficits. We will continue to hold anticoagulation. Continue all his other medications including beta blockers. I will await input from Dr. Holland regarding possible thoracentesis. MMODL / IJN: [id number] /
[2018-10-17] MEDS: ASPIRIN 81 MG PO SCH (10:21)
[2018-10-17] MEDS: AMIODARONE 200 MG TAB PO SCH ×2 (10:21→20:49)
[2018-10-17] MEDS: PANTOPRAZOLE 40 MG TABLET PO SCH (10:21)
[2018-10-17] MEDS: METOPROLOL TARTRATE 50 MG TAB PO SCH ×2 (10:21→20:50)
[2018-10-17] MEDS: SENNOSIDES 8.6 MG TAB PO SCH (10:22)
--- NOTE | 2018-10-17 11:00 | US ---
EXAMINATION TYPE: US chest DATE OF EXAM: 10/17/2018 COMPARISON: CXR CLINICAL HISTORY: bilateral pleural effusion. Effusions TECHNIQUE: Targeted ultrasound of the posterior lower bilateral hemithoraces EXAM MEASUREMENTS: Right Pleural Effusion pocket size: 1.7 cm Left Pleural Effusion pocket size: 8.4 cm Left skin surface to fluid distance: 4.8 cm Right NOT side marked for possible thoracentesis outside the dept. Left side marked for possible thoracentesis outside the dept. Pulmonologists are able to review the images in the patient?s EMR. IMPRESSIONS: Pleural effusions as discussed above.
[2018-10-17 11:54] LABS: Glucose,Whole Blood 282 mg/dL (75-99)
--- NOTE | 2018-10-17 11:54 | P.PN ---
Subjective Progress Note Date: 10/17/18 Principal diagnosis: Status post reconstruction of sternum using tritium plating system. Postoperative day #2 This is a 67-year-old gentleman who follows with Dr. Don as his primary care physician. He has a past medical history of hypertension, hyperlipidemia, morbid obesity, previous tobacco dependence, chronic obstructive pulmonary disease with FEV1 value 64% of predicted. He was also recently found to have significant coronary artery disease and on 09/24/2018 that he had undergone a artery bypass surgery He had done well and was subsequently discharged on 09/30/2018.. He re presented here on 10/08/2018 WITH increased shortness of breath and atrial fibrillation with a rapid ventricular response and was treated for acute hypoxic respiratory failure and rate control with amiodarone. He was again discharged to an extended care facility on 10/11/2018. He remains presented here yesterday after developing oozing from his sternal wound. Computed tomography scan of the chest revealed fluid collection subcutaneous tissues extending to the sternotomy line inferiorly into the anterior mediastinum. Suspected abscess versus hemorrhage. There was a diastases of the sternotomy line. Moderate pericardial effusion and a small left pleural effusion. Today he had undergone a sternal reconstruction with plating and removal of the sternal wires by Dr. Enriquez. He is seen in consultation today in the intensive care unit postoperatively. He is intubated and on the mechanical ventilator. Current settings are assist control 12, tidal volume 600, FiO2 50% and a PEEP of 5. Arterial blood gases reveal pO2 of 80, pCO2 of 52 and a pH of 7.45. Chest x-ray shows bilateral atelectasis. He currently has a D5 and half- normal saline at 70 ML's per hour. He's been initiated on Kefzol for 2 doses. He is on heparin subcutaneous for DVT prophylaxis and DuoNeb inhalations every 4 hours. Preop labs revealed a WBC 9.8. Hemoglobin 8.5. Platelet count 407,000. Creatinine 0.84. He'll remain sedated with propofol throughout the evening. Patient was reevaluated today on 10/16/2018, remains on mechanical ventilations, his FiO2 is down to 40%, tidal volume remains at 600, assist control rate is 14. PEEP is at 5. Patient is sedated, presently receiving a unit of packed RBCs for low hemoglobin of 6.5. Patient is on propofol which I will discontinue once the blood is given, and I plan to address weaning and possibly extubation this morning. ABG on 50% FiO2 showed a pO2 of 120 pCO2 of 49 pH of 7.47. Electrolytes are normal renal profile is normal bicarb is 35. CBC showed a hemoglobin of 6.5 WBC count 6.4. Chest x-ray showed worsening small left pleura l effusion, and by basilar atelectasis or possible aspirated disease, hence I have recommended empiric Zosyn to be started. Patient was reevaluated today on 10/09/2018, he was extubated yesterday unev entfully, he is presently on few liters nasal cannula, O2 saturation is in the mid 90s. Patient is not in any form of respiratory distress. His chest x-ray showed left basilar atelectasis and possibly pleural effusion, ultrasound of the chest showed small pleural effusion, and I did not feel that it is safe to perform thoracentesis. In the meantime the patient will remain on bronchodilators, oral steroids, and diuretics. WBC count is 7.6 hemoglobin is 7.3. Electrolytes are normal. Patient is asymptomatic, compliant with incentive spirometry, and using his heart hugger when coughing. Objective - Vital Signs Vital signs: Vital Signs Temp 98.1 F 10/17/18 04:00 Pulse 98 10/17/18 11:37 Resp 17 10/17/18 07:00 BP 129/74 10/17/18 07:00 Pulse Ox 95 10/17/18 07:49 Intake & Output 10/16/18 10/17/18 10/17/18 18:59 06:59 18:59 Intake Total 5323.411 6519 50 Output Total 1350 670 50 Balance -47.891 460 0 Weight 115 kg Intake: IV 820 700 50 Dextrose 5%-0.45% NaCl 1, 620 600 50 000 ml @ 50 mls/hr IV . Q20H [facility] Rx#:[id number] Piperacillin-Tazobactam 3 200 100 .375 gm In Sodium Chloride 0.9% 100 ml @ 25 mls/hr IVPB Q8HR [facility] Rx# :[id number] Intake, IV Titration 172.109 0 Amount Dexmedetomidine/0.9% NaCl 15.015 (Pmx) 400 mcg In Empty Bag 1 bag @ As Directed IV .Q0M [facility] Rx#:[id number] Propofol 1,000 mg In 157.094 0 Empty Bag 1 bag @ Titrate IV .Q0M [facility]O Rx#: [id number] Oral 430 Blood Product 310 Rc As-3 Unit 310 [id number] Output: Chest Tube Drainage 35 30 Mediastinal 35 30 Urine 1315 640 50 Other: Voiding Method Indwelling Catheter Indwelling Catheter ABP, PAP, CO, CI - Last Documented Arterial Blood Pressure 126/58 - Exam GENERAL EXAM: Physical exam revealed a 67-year-old white male, on nasal cannula, in no distress. Presently on 4 L/m. O2 saturations is 95%. HEAD: Normocephalic. Atraumatic. EYES: Normal reaction of pupils, equal size. NOSE: Clear with pink turbinates. THROAT: Oral endotracheal and gastric tube secured in place. No erythema or exu dates. NECK: No masses, no JVD. CHEST: Diminished breath sounds at the bases, minimal crackles at the bases, LUNGS: Diminished breath sounds at the bases with minimal crackles, no rhonchi no wheezes. CVS: S1 and S2 normal with no audible murmur, regular rhythm. ABDOMEN: No hepatosplenomegaly, normal bowel sounds, no guarding or rigidity. SPINE: No scoliosis or deformity SKIN: No rashes CENTRAL NERVOUS SYSTEM: Alert, oriented 3, no gross focal neurologic deficits. EXTREMITIES: There is no peripheral edema. No clubbing, no cyanosis. Peripheral pulses are intact. - Labs CBC & Chem 7: 10/17/18 04:57 10/17/18 04:57 Labs: Abnormal Lab Results - Last 24 Hours (Table) 10/16/18 10/16/18 10/16/18 Range/Units 11:54 15:20 17:06 RBC 2.73 L (4.30-5.90) m/uL Hgb 7.3 L (13.0-17.5) gm/dL Hct 24.3 L (39.0-53.0) % MCHC 30.2 L (31.0-37.0) g/dL RDW 17.3 H (11.5-15.5) % Lymphocytes # (1.0-4.8) k/uL Carbon Dioxide (22-30) mmol/L BUN (9-20) mg/dL Glucose (74-99) mg/dL POC Glucose (mg/dL) 169 H 164 H (75-99) mg/dL Total Protein (6.3-8.2) g/dL Albumin (3.5-5.0) g/dL 10/16/18 10/17/18 10/17/18 Range/Units 20:26 04:57 04:57 RBC 2.77 L (4.30-5.90) m/uL Hgb 7.3 L (13.0-17.5) gm/dL Hct 25.1 L (39.0-53.0) % MCHC 29.0 L (31.0-37.0) g/dL RDW 17.2 H (11.5-15.5) % Lymphocytes # 0.4 L (1.0-4.8) k/uL Carbon Dioxide 33 H (22-30) mmol/L BUN 25 H (9-20) mg/dL Glucose 178 H (74-99) mg/dL POC Glucose (mg/dL) 192 H (75-99) mg/dL Total Protein 5.3 L (6.3-8.2) g/dL Albumin 2.7 L (3.5-5.0) g/dL 10/17/18 Range/Units 06:15 RBC (4.30-5.90) m/uL Hgb (13.0-17.5) gm/dL Hct (39.0-53.0) % MCHC (31.0-37.0) g/dL RDW (11.5-15.5) % Lymphocytes # (1.0-4.8) k/uL Carbon Dioxide (22-30) mmol/L BUN (9-20) mg/dL Glucose (74-99) mg/dL POC Glucose (mg/dL) 212 H (75-99) mg/dL Total Protein (6.3-8.2) g/dL Albumin (3.5-5.0) g/dL Microbiology - Last 24 Hours (Table) 10/15/18 03:04 Blood Culture - Preliminary Blood No Growth after 48 hours 10/15/18 03:04 Blood Culture - Preliminary Blood No Growth after 48 hours 10/15/18 14:12 Gram Stain - Preliminary Chest Wound Culture - Preliminary Assessment and Plan Assessment: #1 status post sternal reconstruction with plating and removal of sternal wires. Postoperative day #2 #2 Mechanical ventilation support required postoperatively as an expected outcome of surgery. Patient was extubated on 10/16/2018 uneventfully and tolerated extubation well. #3 Recent coronary artery bypass grafting and aortic valve replacement on 09/24/2018 including a SNELL to the LAD, reverse saphenous vein graft to the first diagonal artery, reverse saphenous vein graft to the obtuse marginal artery and an elective aortic valve replacement utilizing a #27 mm paracardial bioprosthesis magna ease valve. Discharged to [facility] on 09/30/2089 #4 Readmission following surgery for acute hypoxic respiratory failure and atrial flutter with rapid ventricular response. Discharged to ECF on 10/11/2018. #5 morbid obesity. #6 Chronic obstructive pulmonary disease with baseline FEV1 value 64% of predicted. #7 Hypertension. #8 Hyperlipidemia. #9 Diabetes mellitus. 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 #11 small postoperative pleural effusion, and atelectasis, expected after such surgery. Recommendation: Continue cardiac meds including KIKA inhibitor's beta blockers and statin and aspirin, patient will be started on amiodarone for A. fib prophylaxis. Continue to wean oxygen as tolerated, increase activity as tolerated, difficult therapy and occupational therapy, monitor labs and chest x- ray, cut down IV steroids to oral prednisone 30 mg daily, continue bronchodilators as ordered, no need for thoracentesis as the amount of the fluid seems to be relatively small. And it is rather risky to perform thoracentesis at this point. Patient was seen by infectious disease, and did not recommend antibiotics chest tube will be discontinued today. Continue pain control, pau nue anticoagulations therapy, could be considered for transfer out of the ICU to a cardiac floor. Time with Patient: Less than 30
[2018-10-17] MEDS: predniSONE 10 MG TAB PO SCH (12:52)
[2018-10-17] MEDS: LISINOPRIL 2.5 MG TAB PO SCH (12:53)
[2018-10-17 16:58] LABS: Glucose,Whole Blood 127 mg/dL (75-99)
--- NOTE | 2018-10-17 18:32 | P.PN ---
Subjective this is a pleasant 68 years old male status post recent aortic valve replacement for bicuspid aortic valve with coronary artery bypass surgery. Admitted for bleeding from lower sternotomy site, hematoma was evacuated also hemopericardium was evacuated as well.patient remains in the ICU, he resting comfortably not in distress. He denies chest pain. No abdominal pain. No change in urine or bowel habits. No feverrest of Vitas looks stable.hemoglobin 7.3.creatinine 0.8. Sugar controlled. Patient is being followed by several consultants including pulmonary critical care, cardiology and cardiothoracic surgery, infectious disease team. Objective - Vital Signs Vital signs: Vital Signs Temp 98.2 F 10/17/18 12:00 Pulse 74 10/17/18 15:51 Resp 12 10/17/18 15:00 BP 104/60 10/17/18 15:00 Pulse Ox 97 10/17/18 15:00 Intake & Output 10/16/18 10/17/18 10/17/18 18:59 06:59 18:59 Intake Total 6077.045 4199 150 Output Total 1350 670 285 Balance -47.891 460 -135 Weight 115 kg Intake: IV 820 700 150 Dextrose 5%-0.45% NaCl 1, 620 600 150 000 ml @ 50 mls/hr IV . Q20H [facility] Rx#:[id number] Piperacillin-Tazobactam 3 200 100 .375 gm In Sodium Chloride 0.9% 100 ml @ 25 mls/hr IVPB Q8HR [facility] Rx# :[id number] Intake, IV Titration 172.109 0 Amount Dexmedetomidine/0.9% NaCl 15.015 (Pmx) 400 mcg In Empty Bag 1 bag @ As Directed IV .Q0M [facility] Rx#:[id number] Propofol 1,000 mg In 157.094 0 Empty Bag 1 bag @ Titrate IV .Q0M [facility] Rx#: [id number] Oral 430 Blood Product 310 Rc As-3 Unit 310 [id number] Output: Chest Tube Drainage 35 30 Mediastinal 35 30 Urine 1315 640 285 Other: Voiding Method Indwelling Catheter Indwelling Catheter Indwelling Catheter ABP, PAP, CO, CI - Last Documented Arterial Blood Pressure 126/58 - Exam GENERAL: The patient is alert and oriented x3, not in any acute distress. Well developed, well nourished. HEENT: Pupils are round and equally reacting to light. EOMI. No scleral icterus. No conjunctival pallor. Normocephalic, atraumatic. No pharyngeal erythema. No thyromegaly. CARDIOVASCULAR: S1 and S2 present. No murmurs, rubs, or gallops. -PULMONARY: Chest is clear to auscultation, no wheezing or crackles. sternotomy wound is closed and dressing is placed, Further examination is deferred to the surgical team ABDOMEN: Soft, nontender, nondistended, normoactive bowel sounds. No palpable organomegaly. MUSCULOSKELETAL: No joint swelling or deformity. EXTREMITIES: No cyanosis, clubbing, or pedal edema. NEUROLOGICAL: Gross neurological examination did not reveal any focal deficits. SKIN: No rashes. - Labs CBC & Chem 7: 10/17/18 04:57 10/17/18 04:57 Labs: Abnormal Lab Results - Last 24 Hours (Table) 10/16/18 10/17/18 10/17/18 Range/Units 20:26 04:57 04:57 RBC 2.77 L (4.30-5.90) m/uL Hgb 7.3 L (13.0-17.5) gm/dL Hct 25.1 L (39.0-53.0) % MCHC 29.0 L (31.0-37.0) g/dL RDW 17.2 H (11.5-15.5) % Lymphocytes # 0.4 L (1.0-4.8) k/uL Carbon Dioxide 33 H (22-30) mmol/L BUN 25 H (9-20) mg/dL Glucose 178 H (74-99) mg/dL POC Glucose (mg/dL) 192 H (75-99) mg/dL Total Protein 5.3 L (6.3-8.2) g/dL Albumin 2.7 L (3.5-5.0) g/dL 10/17/18 10/17/18 10/17/18 Range/Units 06:15 11:51 16:54 RBC (4.30-5.90) m/uL Hgb (13.0-17.5) gm/dL Hct (39.0-53.0) % MCHC (31.0-37.0) g/dL RDW (11.5-15.5) % Lymphocytes # (1.0-4.8) k/uL Carbon Dioxide (22-30) mmol/L BUN (9-20) mg/dL Glucose (74-99) mg/dL POC Glucose (mg/dL) 212 H 282 H 127 H (75-99) mg/dL Total Protein (6.3-8.2) g/dL Albumin (3.5-5.0) g/dL Microbiology - Last 24 Hours (Table) 10/15/18 03:04 Blood Culture - Preliminary Blood No Growth after 48 hours 10/15/18 03:04 Blood Culture - Preliminary Blood No Growth after 48 hours 10/15/18 14:12 Gram Stain - Preliminary Chest Wound Culture - Preliminary Assessment and Plan Assessment: hematoma at the surgical site of previous CABG surgery, status post surgical evacuation. Recent history of aortic valve replacement for bicuspid aortic valve and CABG morbid obesity Hypertension Diabetes mellitus recent cigarette smoker hyperlipidemia Plan: this is a pleasant 68 years old male who presents because of hematoma at the surgical site of sternotomy for his CABG and valve replacement.patient remains in the ICU.continue with the current medical treatment including a breathing treatment, KIKA inhibitor, beta misbah,steroids and pain management. Continue with the current antibiotics as per infectious disease will follow and case.Labs and medication were reviewed.. Continue same treatment. Continue with symptomatic treatment. Resume home medication. Monitor lytes and vitals. DVT and GI prophylaxis. Further recommendations of the clinical course of the patient DVT prophylaxis: Subcutaneous heparin GI Prophylaxis: Ppi Prognosis is guarded
[2018-10-17 20:38] LABS: Glucose,Whole Blood 182 mg/dL (75-99)
[2018-10-17] MEDS: ATORVASTATIN 20 MG TAB PO SCH (20:50)
--- NOTE | 2018-10-17 22:30 | P.PN ---
Subjective Progress Note Date: 10/17/18 This is a 67-year-old male with past medical history significant for recent triple vessel coronary artery bypass grafting surgery with placement of his left internal mammary artery to his left anterior ascending coronary artery, a reverse greater saphenous vein graft from the aorta to the first diagonal coronary artery, a reverse greater saphenous vein graft from the aorta to the first obtuse marginal coronary artery, and an elective aortic valve replacement using bioprosthesis on 09/24/2018. Subsequently on 10/08/2018 the patient presented back to the [facility] emergency center and was found to have a tachycardia arrhythmia with a heart rate in the 150s which was possi jered atrial flutter. He was admitted for further evaluation and workup at that time and was subsequently discharged to [facility] for further rehabilitation needs on 10/11/2018. While at [facility], the patient noticed reddish colored drainage from his distal sternal incision. The patient denies any fevers, chills, or recent trauma. While in the emergency department a computed tomography scan of his chest was completed which demonstrated a subcutaneous fluid collection extending to the sternotomy line inferiorly into the anterior mediastinum. It also demonstrated a moderate pericardial effusion and a small left pleural fluid collection. Patient was found to be afebrile, white count initially 11.4 with repeated 9.8, creatinine 0.84. C-reactive protein 32.1 and sed rate 76. ProBNP 643, troponin 0.069. Patient was given a dose of vancomycin in the emergency center. He has been admitted to the surgical unit and he is scheduled for sternal reconstruction with plating with Dr. Enriquez today. Patient is also noted to have a wound to the right lower extremity most likely from LACHO drain fro m vein harvesting. 10/16/2018 patient is sitting up in the chair feeling somewhat better today. He has been able to take in some clear liquids and would certainly like to increase his diet. He is denying shortness of breath and pain is well controlled. Nursing staff relates no acute concerns. 10/17/2018 patient feeling well today, pain is improved and eating well today. Shortness of breath has improved. Objective - Vital Signs Vital signs: Vital Signs Temp 97.7 F 10/17/18 20:00 Pulse 78 10/17/18 20:03 Resp 22 10/17/18 20:00 BP 112/60 10/17/18 20:00 Pulse Ox 100 10/17/18 20:00 Intake & Output 10/17/18 10/17/18 10/18/18 06:59 18:59 06:59 Intake Total 1130 230 10 Output Total 670 285 250 Balance 460 -55 -240 Weight 115 kg Intake: IV 700 230 10 Dextrose 5%-0.45% NaCl 1, 600 230 000 ml @ 50 mls/hr IV . Q20H [facility] Rx#:[id number] KVO 10 Piperacillin-Tazobactam 3 100 .375 gm In Sodium Chloride 0.9% 100 ml @ 25 mls/hr IVPB Q8HR [facility] Rx# :[id number] Intake, IV Titration 0 Amount Propofol 1,000 mg In 0 Empty Bag 1 bag @ Titrate IV .Q0M [facility]O Rx#: [id number] Oral 430 Output: Chest Tube Drainage 30 Mediastinal 30 Urine 640 285 250 Other: Voiding Method Indwelling Catheter Indwelling Catheter # Voids 1 ABP, PAP, CO, CI - Last Documented Arterial Blood Pressure 126/58 - Exam Gen: This is a morbidly obese 67-year-old male.He has been extubated and is now sitting upright in the chair seeming to be comfortable taking in some clear liquids. HEENT: Head is atraumatic, normocephalic. Pupils equal, round. Sclerae is anicteric. Conjunctiva pink. His memories of the mouth are moist. Patient has a large lesion on the right side of his tongue. No thrush noted. NECK: Supple. No JVD. No lymphadenopathy. No thyromegaly. LUNGS: Diminished lung sounds. No accessory muscle usage No intercostal r etractions. HEART: Regular rate and rhythm. No murmur. the dressing to the anterior chest wall is less thr in place. ABDOMEN: Morbidly obese. Soft. Bowel sounds are present. No masses. No tenderness. EXTREMITIES: 2+ pedal edema. Dorsalis pedis +[address] to the right lower extremity. NEUROLOGICAL: Patient is awake, alert and oriented x3. - Labs CBC & Chem 7: 10/17/18 04:57 10/17/18 04:57 Labs: Abnormal Lab Results - Last 24 Hours (Table) 10/17/18 10/17/18 10/17/18 Range/Units 04:57 04:57 06:15 RBC 2.77 L (4.30-5.90) m/uL Hgb 7.3 L (13.0-17.5) gm/dL Hct 25.1 L (39.0-53.0) % MCHC 29.0 L (31.0-37.0) g/dL RDW 17.2 H (11.5-15.5) % Lymphocytes # 0.4 L (1.0-4.8) k/uL Carbon Dioxide 33 H (22-30) mmol/L BUN 25 H (9-20) mg/dL Glucose 178 H (74-99) mg/dL POC Glucose (mg/dL) 212 H (75-99) mg/dL Total Protein 5.3 L (6.3-8.2) g/dL Albumin 2.7 L (3.5-5.0) g/dL 10/17/18 10/17/18 10/17/18 Range/Units 11:51 16:54 20:25 RBC (4.30-5.90) m/uL Hgb (13.0-17.5) gm/dL Hct (39.0-53.0) % MCHC (31.0-37.0) g/dL RDW (11.5-15.5) % Lymphocytes # (1.0-4.8) k/uL Carbon Dioxide (22-30) mmol/L BUN (9-20) mg/dL Glucose (74-99) mg/dL POC Glucose (mg/dL) 282 H 127 H 182 H (75-99) mg/dL Total Protein (6.3-8.2) g/dL Albumin (3.5-5.0) g/dL Microbiology - Last 24 Hours (Table) 10/15/18 03:04 Blood Culture - Preliminary Blood No Growth after 48 hours 10/15/18 03:04 Blood Culture - Preliminary Blood No Growth after 48 hours 10/15/18 14:12 Gram Stain - Preliminary Chest Wound Culture - Preliminary Laboratory Results WBC 7.6 k/uL (3.8-10.6) 10/17/18 04:57 RBC 2.77 m/uL (4.30-5.90) L 10/17/18 04:57 Hgb 7.3 gm/dL (13.0-17.5) L 10/17/18 04:57 Hct 25.1 % (39.0-53.0) L 10/17/18 04:57 MCV 90.9 fL (80.0-100.0) 10/17/18 04:57 MCH 26.4 pg (25.0-35.0) 10/17/18 04:57 MCHC 29.0 g/dL (31.0-37.0) L 10/17/18 04:57 RDW 17.2 % (11.5-15.5) H 10/17/18 04:57 Plt Count 313 k/uL (150-450) 10/17/18 04:57 Neutrophils % 91 % 10/17/18 04:57 Lymphocytes % 5 % 10/17/18 04:57 Monocytes % 4 % 10/17/18 04:57 Eosinophils % 0 % 10/17/18 04:57 Basophils % 0 % 10/17/18 04:57 Neutrophils # 6.9 k/uL (1.3-7.7) 10/17/18 04:57 Lymphocytes # 0.4 k/uL (1.0-4.8) L 10/17/18 04:57 Monocytes # 0.3 k/uL (0-1.0) 10/17/18 04:57 Eosinophils # 0.0 k/uL (0-0.7) 10/17/18 04:57 Basophils # 0.0 k/uL (0-0.2) 10/17/18 04:57 Hypochromasia Marked 10/17/18 04:57 Poikilocytosis Marked 10/17/18 04:57 Anisocytosis Slight 10/17/18 04:57 ESR 76 mm/hr (0-15) H 10/14/18 13:20 PT 12.4 sec (9.0-12.0) H 10/14/18 13:20 INR 1.2 (<1.2) H 10/14/18 13:20 APTT 23.8 sec (22.0-30.0) 10/14/18 13:20 Sample Site HAMMOND 10/16/18 08:09 ABG pH 7.47 (7.35-7.45) H 10/16/18 08:09 ABG pCO2 49 mmHg (35-45) H 10/16/18 08:09 ABG pO2 120 mmHg (83-108) H 10/16/18 08:09 ABG HCO3 36 mmol/L (21-25) H 10/16/18 08:09 ABG Total CO2 38 mmol/L (19-24) H 10/16/18 08:09 ABG O2 Saturation 100.0 % (94-97) H 10/16/18 08:09 ABG Base Excess 12.6 mmol/L 10/16/18 08:09 Pete Test Yes 10/16/18 08:09 FiO2 50 % 10/16/18 08:09 Sodium 138 mmol/L (137-145) 10/17/18 04:57 Potassium 4.2 mmol/L (3.5-5.1) 10/17/18 04:57 Chloride 98 mmol/L (98-107) 10/17/18 04:57 Carbon Dioxide 33 mmol/L (22-30) H 10/17/18 04:57 Anion Gap 7 mmol/L 10/17/18 04:57 BUN 25 mg/dL (9-20) H 10/17/18 04:57 Creatinine 0.88 mg/dL (0.66-1.25) 10/17/18 04:57 Est GFR (CKD-EPI)AfAm >90 (>60 ml/min/1.73 sqM) 10/17/18 04:57 Est GFR (CKD-EPI)NonAf 90 (>60 ml/min/1.73 sqM) 10/17/18 04:57 Glucose 178 mg/dL (74-99) H 10/17/18 04:57 POC Glucose (mg/dL) 182 mg/dL (75-99) H 10/17/18 20:25 POC Glu Photo Finish Photographer ID Debbie Villa 10/17/18 20:25 Calcium 8.4 mg/dL (8.4-10.2) 10/17/18 04:57 Phosphorus 3.5 mg/dL (2.5-4.5) 10/16/18 04:30 Magnesium 2.5 mg/dL (1.6-2.3) H 10/16/18 04:30 Total Bilirubin 1.0 mg/dL (0.2-1.3) 10/17/18 04:57 AST 19 U/L (17-59) 10/17/18 04:57 ALT 56 U/L (21-72) 10/17/18 04:57 Alkaline Phosphatase 103 U/L (38-126) 10/17/18 04:57 Troponin I 0.069 ng/mL (0.000-0.034) H* 10/14/18 13:20 C-Reactive Protein 32.1 mg/L (<10.0) H 10/14/18 13:20 NT-Pro-B Natriuret Pep 643 pg/mL 10/14/18 13:20 Total Protein 5.3 g/dL (6.3-8.2) L 10/17/18 04:57 Albumin 2.7 g/dL (3.5-5.0) L 10/17/18 04:57 Blood Type A Positive 10/14/18 13:20 Blood Type Recheck No 10/14/18 13:20 Antibody Screen NEGATIVE 10/14/18 13:20 Crossmatch See Detail 10/14/18 13:20 Spec Expiration Date 10/17/2018231910/14/18 13:20 Microbiology 10/15/18 14:12 Chest Gram Stain - Final 10/15/18 14:12 Chest Wound Culture - Final 10/15/18 03:04 Blood Blood Culture - Preliminary No Growth after 48 hours 10/15/18 03:04 Blood Blood Culture - Preliminary No Growth after 48 hours 10/15/18 14:12 Chest Anaerobic Culture - Preliminary Assessment and Plan (1) Status post aortic valve replacement Current Visit: Yes Status: Acute Code(s): Z95.2 - PRESENCE OF PROSTHETIC HEART VALVE SNOMED Code(s): 4224634443684 (2) Disruption of closure of sternum or sternotomy Narrative/Plan: 67-year-old male with obesit developed the mechanical disruption of his median sternotomy state for his open heart procedure. He was taken to the operating room with no evidence of any active infection being seen at the site. The patient is without evidence of fever, chills or significant leukocytosis. Gram stains are all negative and no evidence of any purulence or infection was found time of his surgery. Routine surgical prophylaxis only has been utilized so far cultures are being monitored but the patient does not appear to have active infection. Continue local wound care to the thigh site. 10/17/2018 patient is feeling better today. Cultures are negative. Does not appear to have infection as the etiology of the disruption of the sternum Current Visit: Yes Status: Acute Code(s): T81.32XA - DISRUPTION OF INTERNAL OPERATION (SURGICAL) WOUND, NEC, INIT SNOMED Code(s): 06559024
[2018-10-18] MEDS: PIPERACILLIN-TAZOBACTAM 3.375 GM in SODIUM CHLORIDE 0.9% 100 ML IVPB SCH ×4 (00:08→23:25)
[2018-10-18] MEDS: HEPARIN SODIUM,PORCINE 5,000 UNIT/ML 1 ML VIAL SQ SCH ×4 (00:08→23:25)
[2018-10-18] MEDS: IPRATROPIUM-ALBUTEROL 3 ML NEB INHALATION SCH ×7 (00:20→23:19)
[2018-10-18 05:01] LABS: Anisocytosis Slight; HCT 24.6 % (39.0-53.0); HGB 7.4 gm/dL (13.0-17.5); Hypochromasia Marked; MCH 27.2 pg (25.0-35.0); MCV 90.6 fL (80.0-100.0); Platelet Count 315 k/uL (150-450); Poikilocytosis Moderate; RBC 2.71 m/uL (4.30-5.90); RDW 16.9 % (11.5-15.5); WBC 6.7 k/uL (3.8-10.6)
[2018-10-18 05:17] LABS: Anion Gap 7 mmol/L; Blood Urea Nitrogen 17 mg/dL (9-20); Calcium 8.3 mg/dL (8.4-10.2); Carbon Dioxide 32 mmol/L (22-30); Chloride 98 mmol/L (98-107); Glucose 137 mg/dL (74-99); Potassium 3.6 mmol/L (3.5-5.1); Sodium 137 mmol/L (137-145)
[2018-10-18] MEDS ORDERED: Potassium Replacement Protocol 1 EACH MISC MISCELLANE PRN (05:22)
[2018-10-18] MEDS ORDERED: POTASSIUM CHLORIDE ER 20 MEQ TAB.ER PO SCH (06:00)
[2018-10-18 07:10] LABS: Glucose,Whole Blood 148 mg/dL (75-99)
[2018-10-18] MEDS: INSULIN ASPART (NovoLOG) 100 UNIT/ML VIAL SQ SCH ×4 (07:18→21:42)
[2018-10-18] MEDS: PANTOPRAZOLE 40 MG TABLET PO SCH (07:18)
--- NOTE | 2018-10-18 07:35 | XR ---
EXAMINATION TYPE: XR chest 1V portable DATE OF EXAM: 10/18/2018 CLINICAL HISTORY: Difficulty breathing progress study. Post open cardiac surgery. TECHNIQUE: Single AP portable upright view of the chest is obtained. COMPARISON: Chest x-ray from one day earlier and older studies. FINDINGS: Overlying sternal wires and cardiac closure device superiorly are redemonstrated. There is persistent cardiomegaly without sclerotic thoracic aorta. There is persistent small bilateral pleura l effusions and central vascular congestion with associated bibasilar atelectasis. Upper lungs are cl ear without pneumothorax. Osseous structures are intact. Somewhat low lung volumes redemonstrated. IMPRESSION: Overall stable findings, suspect CHF exacerbation as there is cardiomegaly with central vascular congestion and small bilateral pleural effusions with associated compressive atelectasis al l redemonstrated.
--- NOTE | 2018-10-18 08:06 | P.PN ---
Subjective Progress Note Date: 10/18/18 Principal diagnosis: Mechanical destruction of the sternum, status post aortic valve replacement and coronary artery bypass grafting 09/24/18. Previous medical history of bicuspid a ortic valve with moderate to severe aortic stenosis status post aortic valve replacement with 27 mm magna ease pericardial bioprosthesis, coronary artery disease with left main disease status post triple coronary artery bypass graft surgery, chronic diastolic dysfunction, hypertension, hyperlipidemia, morbid obesity, previous tobacco dependence, and mild COPD with FEV1 64% of predicted. POD #3 drainage of wound hematoma and reconstruction of the sternum using Tritium plating system. Postoperative acute blood loss anemia, unexpected but potential outcome. The patient is currently sitting up in a recliner in no acute distress in the intensive care unit. Remains in normal sinus rhythm, hemodynamically stable. States he is feeling better everyday. Denies any pain or shortness of breath. Mediastinal chest tube was discontinued yesterday. No new complaints. Objective - Vital Signs Vital signs: Vital Signs Temp 97.7 F 10/18/18 04:00 Pulse 75 10/18/18 07:00 Resp 22 10/18/18 07:00 BP 107/58 10/18/18 07:00 Pulse Ox 94 L 10/18/18 07:00 Intake & Output 10/17/18 10/18/18 10/18/18 18:59 06:59 18:59 Intake Total 230 150 Output Total 285 800 Balance -55 -650 Intake: IV 230 150 Dextrose 5%-0.45% NaCl 1, 230 000 ml @ 50 mls/hr IV . Q20H TAYO Rx#:[id number] KVO 50 Piperacillin-Tazobactam 3 100 .375 gm In Sodium Chloride 0.9% 100 ml @ 25 mls/hr IVPB Q8HR TAYO Rx# :[id number] Output: Urine 285 800 Other: Voiding Method Indwelling Catheter Urinal # Voids 1 ABP, PAP, CO, CI - Last Documented Arterial Blood Pressure 126/58 - Constitutional General appearance: Present: cooperative, no acute distress, obese - Respiratory Details: Lungs sounds diminished bilaterally. Respirations even, nonlabored. Currently on 3 L nasal cannula with oxygen saturation 95%. Able to achieve 1000 mL on his incentive spirometry. Strong cough. - Cardiovascular Details: S1, S2 present. Regular rate and rhythm, sinus rhythm on telemetry. Sternum is stable post surgery with Prevena wound VAC in place. Palpable peripheral pulses bilaterally. Generalized trace edema present. No calf pain or tenderness noted. Surgical bra, heart hugger in place with patient demonstrating appr opriate use. Antiembolism stockings, SCDs present. - Gastrointestinal Gastrointestinal Comment(s): Abdomen soft, nontender, nondistended, obese. Hypoactive bowel sounds present 4 quadrants. Positive flatus, negative bowel movement. Tolerating diet. - Genitourinary Genitourinary Comment(s): Sauceda discontinued yesterday. Patient has voided 250-300 mL at a time. - Integumentary Integumentary Comment(s): Skin is warm and dry with evidence of good perfusion. Prevena wound VAC present to sternal incision, dry intact dressing covering mediastinal chest tube site. - Neurologic Neurologic: Present: CNII-XII intact - Musculoskeletal Musculoskeletal: Present: strength equal bilaterally - Psychiatric Psychiatric: Present: A&O x's 3, appropriate affect, intact judgment & insight - Allied health notes Allied health notes reviewed: nursing - Labs CBC & Chem 7: 10/18/18 04:27 10/18/18 04:27 Labs: Abnormal Lab Results - Last 24 Hours (Table) 10/17/18 10/17/18 10/17/18 Range/Units 11:51 16:54 20:25 RBC (4.30-5.90) m/uL Hgb (13.0-17.5) gm/dL Hct (39.0-53.0) % MCHC (31.0-37.0) g/dL RDW (11.5-15.5) % Carbon Dioxide (22-30) mmol/L Glucose (74-99) mg/dL POC Glucose (mg/dL) 282 H 127 H 182 H (75-99) mg/dL Calcium (8.4-10.2) mg/dL 10/18/18 10/18/18 10/18/18 Range/Units 04:27 04:27 07:07 RBC 2.71 L (4.30-5.90) m/uL Hgb 7.4 L (13.0-17.5) gm/dL Hct 24.6 L (39.0-53.0) % MCHC 30.0 L (31.0-37.0) g/dL RDW 16.9 H (11.5-15.5) % Carbon Dioxide 32 H (22-30) mmol/L Glucose 137 H (74-99) mg/dL POC Glucose (mg/dL) 148 H (75-99) mg/dL Calcium 8.3 L (8.4-10.2) mg/dL Microbiology - Last 24 Hours (Table) 10/15/18 03:04 Blood Culture - Preliminary Blood No Growth after 72 hours 10/15/18 03:04 Blood Culture - Preliminary Blood No Growth after 72 hours 10/15/18 14:12 Anaerobic Culture - Preliminary Chest 10/15/18 14:12 Gram Stain - Final Chest Wound Culture - Final - Imaging and Cardiology Chest x-ray: image reviewed Assessment and Plan Assessment: 1. Mechanical destruction of the sternum, status post reconstruction using Tritium plating system with placement of mediastinal chest tube for drainage of wound hematoma 2. History of bicuspid aortic valve with moderate to severe aortic stenosis status post aortic valve replacement 09/24/18 3. History of coronary artery disease with left main disease status post triple-vessel coronary artery bypass graft surgery 09/24/18 4. Recent readmission for atrial flutter with rapid ventricular response, on Eliquis for anticoagulation which is currently on hold 5. Chronic diastolic heart failure 6. Hypertension 7. Hyperlipidemia 8. Morbid obesity 9. Tobacco dependence 10. Mild COPD with FEV1 64% of predicted 11. Postoperative acute blood loss anemia, status post transfusion of 1 unit packed red blood cells Plan: 1. Continue aspirin, statin, KIKA inhibitor, beta misbah therapy. 2. Continue amiodarone for afib prophylaxis. 3. Wean oxygen as tolerated. Encourage incentive spirometry 10 times every hour while awake. 4. Increase activity as tolerated. PT/OT following. 5. Monitor daily labs and x-rays. No transfusions today. 6. Steroids, bronchodilators per pulmonology. No thoracentesis. Steroids switched to by mouth yesterday. 7. Infectious disease consulted, appreciate recommendations. No recommendation for antibiotics at this time as sternal fluid drainage did not appear infectious, no leukocytosis, afebrile, cultures negative. 8. GI prophylaxis with Protonix, DVT prophylaxis with subcu heparin, SCDs. 9. Pain control with current medication regimen. 10. Medical management of other comorbid conditions per primary, cardiology, pulmonology. 11. May transfer to cardiac stepdown unit from our standpoint. 13. More recommendations to follow. Time with Patient: Greater than 30
[2018-10-18] MEDS: ASPIRIN 81 MG PO SCH (08:35)
[2018-10-18] MEDS: AMIODARONE 200 MG TAB PO SCH ×2 (08:35→21:42)
[2018-10-18] MEDS: METOPROLOL TARTRATE 50 MG TAB PO SCH ×2 (08:36→23:24)
[2018-10-18] MEDS: predniSONE 10 MG TAB PO SCH (08:36)
--- NOTE | 2018-10-18 09:53 | PN ---
PROGRESS NOTE Mr. Johnson is a 67-year-old male with a history of recent coronary artery bypass grafting with aortic valve replacement who underwent redo surgery because of sternal reconstruction and infection. He is extubated, sitting up in the chair, feeling well. Breathing is good. Denies any symptoms of chest pain. Using the incentive spirometry. Denies any dizziness or palpitation. He was admitted with respiratory failure and atrial flutter. Hemodynamically, he is stable at this point on no pressors. He continues to be at this time on amiodarone 200 mg twice a day, aspirin once a day, Lipitor 20 mg daily, lisinopril 2.5 mg daily, metoprolol tartrate 100 mg twice a day. PHYSICAL EXAMINATION: Blood pressure 107/50 with the heart rate in the 70. LUNGS: With mild decrease in breath sounds at the bases. No wheezes. HEART: Regular rate and rhythm. S1, S2. No S3 with systolic murmur at the base. No diastolic murmur. No rub. ABDOMEN: Soft, nontender. Positive bowel sounds. EXTREMITIES: No significant edema. LAB DATA: Lab data revealed BUN and creatinine 17 and 0.76. Potassium 3.6. Hemoglobin of 7.4. IMPRESSION: 1. Status post reconstruction of the sternum. 2. Status post coronary artery bypass grafting and aortic valve replacement. 3. Atrial flutter, remains sinus mechanism. 4. History of chronic obstructive lung disease. 5. Hypertension. 6. Hyperlipidemia. RECOMMENDATION: From the cardiac standpoint, we will continue on the present therapy. Follow his rhythm. If he has further episodes of arrhythmia, then anticoagulation may be needed. Depending on his progress, further recommendations will be made. MMODL / IJN: [id number] /
--- NOTE | 2018-10-18 11:51 | P.PN ---
Subjective Progress Note Date: 10/18/18 Principal diagnosis: Status post reconstruction of sternum using tritium plating system. Postoperative day #3 This is a 67-year-old gentleman who follows with Dr. Don as his primary care physician. He has a past medical history of hypertension, hyperlipidemia, morbid obesity, previous tobacco dependence, chronic obstructive pulmonary disease with FEV1 value 64% of predicted. He was also recently found to have significant coronary artery disease and on 09/24/2018 that he had undergone a artery bypass surgery He had done well and was subsequently discharged on 09/30/2018.. He re presented here on 10/08/2018 WITH increased shortness of breath and atrial fibrillation with a rapid ventricular response and was treated for acute hypoxic respiratory failure and rate control with amiodarone. He was again discharged to an extended care facility on 10/11/2018. He remains presented here yesterday after developing oozing from his sternal wound. Computed tomography scan of the chest revealed fluid collection subcutaneous tissues extending to the sternotomy line inferiorly into the anterior mediastinum. Suspected abscess versus hemorrhage. There was a diastases of the sternotomy line. Moderate pericardial effusion and a small left pleural effusion. Today he had undergone a sternal reconstruction with plating and removal of the sternal wires by Dr. Enriquez. He is seen in consultation today in the intensive care unit postoperatively. He is intubated and on the mechanical ventilator. Current settings are assist control 12, tidal volume 600, FiO2 50% and a PEEP of 5. Arterial blood gases reveal pO2 of 80, pCO2 of 52 and a pH of 7.45. Chest x-ray shows bilateral atelectasis. He currently has a D5 and half- normal saline at 70 ML's per hour. He's been initiated on Kefzol for 2 doses. He is on heparin subcutaneous for DVT prophylaxis and DuoNeb inhalations every 4 hours. Preop labs revealed a WBC 9.8. Hemoglobin 8.5. Platelet count 407,000. Creatinine 0.84. He'll remain sedated with propofol throughout the evening. Patient was reevaluated today on 10/16/2018, remains on mechanical ventilations, his FiO2 is down to 40%, tidal volume remains at 600, assist control rate is 14. PEEP is at 5. Patient is sedated, presently receiving a unit of packed RBCs for low hemoglobin of 6.5. Patient is on propofol which I will discontinue once the blood is given, and I plan to address weaning and possibly extubation this morning. ABG on 50% FiO2 showed a pO2 of 120 pCO2 of 49 pH of 7.47. Electrolytes are normal renal profile is normal bicarb is 35. CBC showed a hemoglobin of 6.5 WBC count 6.4. Chest x-ray showed worsening small left pleura l effusion, and by basilar atelectasis or possible aspirated disease, hence I have recommended empiric Zosyn to be started. Patient was reevaluated today on 10/17/2018, he was extubated yesterday unev entfully, he is presently on few liters nasal cannula, O2 saturation is in the mid 90s. Patient is not in any form of respiratory distress. His chest x-ray showed left basilar atelectasis and possibly pleural effusion, ultrasound of the chest showed small pleural effusion, and I did not feel that it is safe to perform thoracentesis. In the meantime the patient will remain on bronchodilators, oral steroids, and diuretics. WBC count is 7.6 hemoglobin is 7.3. Electrolytes are normal. Patient is asymptomatic, compliant with incentive spirometry, and using his heart hugger when coughing. Patient was reevaluated today on 2018, patient is doing fairly well.he is now postoperative day #3 status post drainage of wound hematoma and reconstruction of sternum using tritium plating system. Patient denies any specific complaints, he is on couple of liters nasal cannula, saturating well. Chest x-ray is showing left lower lobe atelectasis, minimal left pleural effusion, underlying infiltrate is not entirely ruled out but felt to be less likely.hemoglobin is 7.4 electrolytes and basic metabolic profile are normal. Objective - Vital Signs Vital signs: Vital Signs Temp 97.6 F 10/18/18 08:00 Pulse 71 10/18/18 10:00 Resp 18 10/18/18 10:00 BP 101/65 10/18/18 09:00 Pulse Ox 94 L 10/18/18 10:00 Intake & Output 10/17/18 10/18/18 10/18/18 18:59 06:59 18:59 Intake Total 230 150 40 Output Total 285 800 0 Balance -55 -650 40 Weight 115.2 kg Intake: IV 230 150 40 Dextrose 5%-0.45% NaCl 1, 230 000 ml @ 50 mls/hr IV . Q20H [facility] Rx#:[id number] KVO 50 40 Piperacillin-Tazobactam 3 100 .375 gm In Sodium Chloride 0.9% 100 ml @ 25 mls/hr IVPB Q8HR [facility] Rx# :[id number] Output: Urine 285 800 0 Other: Voiding Method Indwelling Catheter Urinal Urinal # Voids 1 ABP, PAP, CO, CI - Last Documented Arterial Blood Pressure 126/58 - Exam GENERAL EXAM: Physical exam revealed a 67-year-old white male, in no distress.on 2 L nasal cannula. HEAD: Normocephalic. Atraumatic. EYES: Normal reaction of pupils, equal size. NOSE: Clear with pink turbinates. THROAT: Oral endotracheal and gastric tube secured in place. No erythema or exudates. NECK: No masses, no JVD. CHEST: Diminished breath sounds at the bases, minimal crackles at the bases, LUNGS:fine crackles at the left base, otherwise unremarkable. Symmetrical chest expansion. No rhonchi and no wheezes. CVS: S1 and S2 normal with no audible murmur, regular rhythm. ABDOMEN: No hepatosplenomegaly, normal bowel sounds, no guarding or rigidity. SPINE: No scoliosis or deformity SKIN: No rashes CENTRAL NERVOUS SYSTEM: Alert, oriented 3, no gross focal neurologic deficits. EXTREMITIES: There is no peripheral edema. No clubbing, no cyanosis. Peripheral pulses are intact. - Labs CBC & Chem 7: 10/18/18 04:27 10/18/18 04:27 Labs: Abnormal Lab Results - Last 24 Hours (Table) 10/17/18 10/17/18 10/17/18 Range/Units 11:51 16:54 20:25 RBC (4.30-5.90) m/uL Hgb (13.0-17.5) gm/dL Hct (39.0-53.0) % MCHC (31.0-37.0) g/dL RDW (11.5-15.5) % Carbon Dioxide (22-30) mmol/L Glucose (74-99) mg/dL POC Glucose (mg/dL) 282 H 127 H 182 H (75-99) mg/dL Calcium (8.4-10.2) mg/dL 10/18/18 10/18/18 10/18/18 Range/Units 04:27 04:27 07:07 RBC 2.71 L (4.30-5.90) m/uL Hgb 7.4 L (13.0-17.5) gm/dL Hct 24.6 L (39.0-53.0) % MCHC 30.0 L (31.0-37.0) g/dL RDW 16.9 H (11.5-15.5) % Carbon Dioxide 32 H (22-30) mmol/L Glucose 137 H (74-99) mg/dL POC Glucose (mg/dL) 148 H (75-99) mg/dL Calcium 8.3 L (8.4-10.2) mg/dL Microbiology - Last 24 Hours (Table) 10/15/18 03:04 Blood Culture - Preliminary Blood No Growth after 72 hours 10/15/18 03:04 Blood Culture - Preliminary Blood No Growth after 72 hours 10/15/18 14:12 Anaerobic Culture - Preliminary Chest 10/15/18 14:12 Gram Stain - Final Chest Wound Culture - Final Assessment and Plan Assessment: #1 status post sternal reconstruction with plating and removal of sternal wires. Postoperative day #3 #2 Mechanical ventilation support required postoperatively as an expected o utcome of surgery. Patient was extubated on 10/16/2018 uneventfully and tolerated extubation well. #3 Recent coronary artery bypass grafting and aortic valve replacement on 09/24/2018 including a SNELL to the LAD, reverse saphenous vein graft to the first diagonal artery, reverse saphenous vein graft to the obtuse marginal artery and an elective aortic valve replacement utilizing a #27 mm paracardial bioprosthesis magna ease valve. Discharged to [facility] on 09/30/2089 #4 Readmission following surgery for acute hypoxic respiratory failure and atrial flutter with rapid ventricular response. Discharged to [facility] on 10/11/2018. #5 morbid obesity. #6 Chronic obstructive pulmonary disease with baseline FEV1 value 64% of predicted. #7 Hypertension. #8 Hyperlipidemia. #9 Diabetes mellitus. 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 #11 small postoperative pleural effusion, and atelectasis, expected after such surgery. Recommendation: Continue cardiac meds including KIKA inhibitor's beta blockers and statin and aspirin, patient will be started on amiodarone for A. fib prophylaxis. Continue to wean oxygen as tolerated, increase activity as tolerated, difficult therapy and occupational therapy, monitor labs and chest x- ray, cut down IV steroids to oral prednisone 30 mg daily, continue broncho dilators as ordered, no need for thoracentesis as the amount of the fluid seems to be relatively small. And it is rather risky to perform thoracentesis at this point. Continue pain control, continue anticoagulations therapy, Will transfer the patient today to a cardiac bed. With monitor. Time with Patient: Less than 30
[2018-10-18 12:04] LABS: Glucose,Whole Blood 146 mg/dL (75-99)
[2018-10-18] MEDS: LISINOPRIL 2.5 MG TAB PO SCH (12:32)
[2018-10-18] MEDS: SENNOSIDES 8.6 MG TAB PO SCH (12:32)
[2018-10-18 17:24] LABS: Glucose,Whole Blood 210 mg/dL (75-99)
--- NOTE | 2018-10-18 17:59 | P.PN ---
Subjective Progress Note Date: 10/18/18 This is a 67-year-old male with past medical history significant for recent triple vessel coronary artery bypass grafting surgery with placement of his left internal mammary artery to his left anterior ascending coronary artery, a reverse greater saphenous vein graft from the aorta to the first diagonal coronary artery, a reverse greater saphenous vein graft from the aorta to the first obtuse marginal coronary artery, and an elective aortic valve replacement using bioprosthesis on 09/24/2018. Subsequently on 10/08/2018 the patient presented back to the [facility] emergency center and was found to have a tachycardia arrhythmia with a heart rate in the 150s which was possi jered atrial flutter. He was admitted for further evaluation and workup at that time and was subsequently discharged to [facility] for further rehabilitation needs on 10/11/2018. While at [facility], the patient noticed reddish colored drainage from his distal sternal incision. The patient denies any fevers, chills, or recent trauma. While in the emergency department a computed tomography scan of his chest was completed which demonstrated a subcutaneous fluid collection extending to the sternotomy line inferiorly into the anterior mediastinum. It also demonstrated a moderate pericardial effusion and a small left pleural fluid collection. Patient was found to be afebrile, white count initially 11.4 with repeated 9.8, creatinine 0.84. C-reactive protein 32.1 and sed rate 76. ProBNP 643, troponin 0.069. Patient was given a dose of vancomycin in the emergency center. He has been admitted to the surgical unit and he is scheduled for sternal reconstruction with plating with Dr. Enriquez today. Patient is also noted to have a wound to the right lower extremity most likely from LACHO drain fro m vein harvesting. 10/16/2018 patient is sitting up in the chair feeling somewhat better today. He has been able to take in some clear liquids and would certainly like to increase his diet. He is denying shortness of breath and pain is well controlled. Nursing staff relates no acute concerns. 10/17/2018 patient feeling well today, pain is improved and eating well today. Shortness of breath has improved. 10/18/2018 patient doing well pain well controlled Objective - Vital Signs Vital signs: Vital Signs Temp 98.0 F 10/18/18 16:00 Pulse 87 10/18/18 17:00 Resp 22 10/18/18 16:00 BP 99/59 10/18/18 16:00 Pulse Ox 94 L 10/18/18 16:00 Intake & Output 10/17/18 10/18/18 10/18/18 18:59 06:59 18:59 Intake Total 230 150 220 Output Total 285 800 475 Balance -55 -650 -255 Weight 115.2 kg Intake: IV 230 150 220 Dextrose 5%-0.45% NaCl 1, 230 000 ml @ 50 mls/hr IV . Q20H [facility] Rx#:[id number] KVO 50 120 Piperacillin-Tazobactam 3 100 100 .375 gm In Sodium Chloride 0.9% 100 ml @ 25 mls/hr IVPB Q8HR [facility] Rx# :[id number] Output: Urine 285 800 475 Other: Voiding Method Indwelling Catheter Urinal Urinal # Voids 1 ABP, PAP, CO, CI - Last Documented Arterial Blood Pressure 126/58 - Exam Gen: This is a morbidly obese 67-year-old male.He has been extubated and is now sitting upright in the chair seeming to be comfortable taking in some clear liquids. HEENT: Head is atraumatic, normocephalic. Pupils equal, round. Sclerae is anicteric. Conjunctiva pink. His memories of the mouth are moist. Patient has a large lesion on the right side of his tongue. No thrush noted. NECK: Supple. No JVD. No lymphadenopathy. No thyromegaly. LUNGS: Diminished lung sounds. No accessory muscle usage No intercostal retractions. HEART: Regular rate and rhythm. No murmur. the dressing to the anterior chest wall is less thr in place. ABDOMEN: Morbidly obese. Soft. Bowel sounds are present. No masses. No tenderness. EXTREMITIES: 2+ pedal edema. Dorsalis pedis +[address] to the right lower extremity. NEUROLOGICAL: Patient is awake, alert and oriented x3. - Labs CBC & Chem 7: 10/18/18 04:27 10/18/18 04:27 Labs: Abnormal Lab Results - Last 24 Hours (Table) 10/17/18 10/18/18 10/18/18 Range/Units 20:25 04:27 04:27 RBC 2.71 L (4.30-5.90) m/uL Hgb 7.4 L (13.0-17.5) gm/dL Hct 24.6 L (39.0-53.0) % MCHC 30.0 L (31.0-37.0) g/dL RDW 16.9 H (11.5-15.5) % Carbon Dioxide 32 H (22-30) mmol/L Glucose 137 H (74-99) mg/dL POC Glucose (mg/dL) 182 H (75-99) mg/dL Calcium 8.3 L (8.4-10.2) mg/dL 10/18/18 10/18/18 10/18/18 Range/Units 07:07 12:01 17:10 RBC (4.30-5.90) m/uL Hgb (13.0-17.5) gm/dL Hct (39.0-53.0) % MCHC (31.0-37.0) g/dL RDW (11.5-15.5) % Carbon Dioxide (22-30) mmol/L Glucose (74-99) mg/dL POC Glucose (mg/dL) 148 H 146 H 210 H (75-99) mg/dL Calcium (8.4-10.2) mg/dL Microbiology - Last 24 Hours (Table) 10/15/18 03:04 Blood Culture - Preliminary Blood No Growth after 72 hours 10/15/18 03:04 Blood Culture - Preliminary Blood No Growth after 72 hours 10/15/18 14:12 Anaerobic Culture - Preliminary Chest 10/15/18 14:12 Gram Stain - Final Chest Wound Culture - Final Laboratory Results WBC 6.7 k/uL (3.8-10.6) 10/18/18 04:27 RBC 2.71 m/uL (4.30-5.90) L 10/18/18 04:27 Hgb 7.4 gm/dL (13.0-17.5) L 10/18/18 04:27 Hct 24.6 % (39.0-53.0) L 10/18/18 04:27 MCV 90.6 fL (80.0-100.0) 10/18/18 04:27 MCH 27.2 pg (25.0-35.0) 10/18/18 04:27 MCHC 30.0 g/dL (31.0-37.0) L 10/18/18 04:27 RDW 16.9 % (11.5-15.5) H 10/18/18 04:27 Plt Count 315 k/uL (150-450) 10/18/18 04:27 Neutrophils % 91 % 10/17/18 04:57 Lymphocytes % 5 % 10/17/18 04:57 Monocytes % 4 % 10/17/18 04:57 Eosinophils % 0 % 10/17/18 04:57 Basophils % 0 % 10/17/18 04:57 Neutrophils # 6.9 k/uL (1.3-7.7) 10/17/18 04:57 Lymphocytes # 0.4 k/uL (1.0-4.8) L 10/17/18 04:57 Monocytes # 0.3 k/uL (0-1.0) 10/17/18 04:57 Eosinophils # 0.0 k/uL (0-0.7) 10/17/18 04:57 Basophils # 0.0 k/uL (0-0.2) 10/17/18 04:57 Hypochromasia Marked 10/18/18 04:27 Poikilocytosis Moderate 10/18/18 04:27 Anisocytosis Slight 10/18/18 04:27 ESR 76 mm/hr (0-15) H 10/14/18 13:20 PT 12.4 sec (9.0-12.0) H 10/14/18 13:20 INR 1.2 (<1.2) H 10/14/18 13:20 APTT 23.8 sec (22.0-30.0) 10/14/18 13:20 Sample Site [place] 10/16/18 08:09 ABG pH 7.47 (7.35-7.45) H 10/16/18 08:09 ABG pCO2 49 mmHg (35-45) H 10/16/18 08:09 ABG pO2 120 mmHg (83-108) H 10/16/18 08:09 ABG HCO3 36 mmol/L (21-25) H 10/16/18 08:09 ABG Total CO2 38 mmol/L (19-24) H 10/16/18 08:09 ABG O2 Saturation 100.0 % (94-97) H 10/16/18 08:09 ABG Base Excess 12.6 mmol/L 10/16/18 08:09 Pete Test Yes 10/16/18 08:09 FiO2 50 % 10/16/18 08:09 Sodium 137 mmol/L (137-145) 10/18/18 04:27 Potassium 3.6 mmol/L (3.5-5.1) 10/18/18 04:27 Chloride 98 mmol/L (98-107) 10/18/18 04:27 Carbon Dioxide 32 mmol/L (22-30) H 10/18/18 04:27 Anion Gap 7 mmol/L 10/18/18 04:27 BUN 17 mg/dL (9-20) 10/18/18 04:27 Creatinine 0.76 mg/dL (0.66-1.25) 10/18/18 04:27 Est GFR (CKD-EPI)AfAm >90 (>60 ml/min/1.73 sqM) 10/18/18 04:27 Est GFR (CKD-EPI)NonAf >90 (>60 ml/min/1.73 sqM) 10/18/18 04:27 Glucose 137 mg/dL (74-99) H 10/18/18 04:27 POC Glucose (mg/dL) 210 mg/dL (75-99) H 10/18/18 17:10 POC Glu Eligibility Services Representative ID Krystyna Alva 10/18/18 17:10 Calcium 8.3 mg/dL (8.4-10.2) L 10/18/18 04:27 Phosphorus 3.5 mg/dL (2.5-4.5) 10/16/18 04:30 Magnesium 2.5 mg/dL (1.6-2.3) H 10/16/18 04:30 Total Bilirubin 1.0 mg/dL (0.2-1.3) 10/17/18 04:57 AST 19 U/L (17-59) 10/17/18 04:57 ALT 56 U/L (21-72) 10/17/18 04:57 Alkaline Phosphatase 103 U/L (38-126) 10/17/18 04:57 Troponin I 0.069 ng/mL (0.000-0.034) H* 10/14/18 13:20 C-Reactive Protein 32.1 mg/L (<10.0) H 10/14/18 13:20 NT-Pro-B Natriuret Pep 643 pg/mL 10/14/18 13:20 Total Protein 5.3 g/dL (6.3-8.2) L 10/17/18 04:57 Albumin 2.7 g/dL (3.5-5.0) L 10/17/18 04:57 Blood Type A Positive 10/14/18 13:20 Blood Type Recheck No 10/14/18 13:20 Antibody Screen NEGATIVE 10/14/18 13:20 Crossmatch See Detail 10/14/18 13:20 Spec Expiration Date 10/17/2018 - 231910/14/18 13:20 Microbiology 10/15/18 03:04 Blood Blood Culture - Preliminary No Growth after 72 hours 10/15/18 03:04 Blood Blood Culture - Preliminary No Growth after 72 hours 10/15/18 14:12 Chest Anaerobic Culture - Preliminary 10/15/18 14:12 Chest Gram Stain - Final 10/15/18 14:12 Chest Wound Culture - Final Assessment and Plan (1) Status post aortic valve replacement Current Visit: Yes Status: Acute Code(s): Z95.2 - PRESENCE OF PROSTHETIC HEART VALVE SNOMED Code(s): 1878630796618 (2) Disruption of closure of sternum or sternotomy Narrative/Plan: 67-year-old male with obesit developed the mechanical disruption of his median sternotomy state for his open heart procedure. He was taken to the operating room with no evidence of any active infection being seen at the site. The patient is without evidence of fever, chills or significant leukocytosis. Gram stains are all negative and no evidence of any purulence or infection was found time of his surgery. Routine surgical prophylaxis only has been utilized so far cultures are being monitored but the patient does not appear to have active infection. Continue local wound care to the thigh site. 10/17/2018 patient is feeling better today. Cultures are negative. Does not appear to have infection as the etiology of the disruption of the sternum 10/18/2018 patient is doing better again today. His discomfort is sternum is m inimal. Has a Heart Hugger in place. He is not having severe shortness of breath or cough or sputum production. Sternal wound scar drainage. Cultures are all negative at this point in time, evidence of the mechanical disruption of his sternum without evidence of infection. Current Visit: Yes Status: Acute Code(s): T81.32XA - DISRUPTION OF INTERNAL OPERATION (SURGICAL) WOUND, NEC, INIT SNOMED Code(s): 50050829
--- NOTE | 2018-10-18 18:24 | P.PN ---
Subjective this is a pleasant 68 years old male status post recent aortic valve replacement for bicuspid aortic valve with coronary artery bypass surgery. Admitted for bleeding from lower sternotomy site, hematoma was evacuated also hemopericardium was evacuated as well.patient remains in the ICU, he resting comfortably not in distress. He denies chest pain. No abdominal pain. No change in urine or bowel habits. No feverrest of Vitas looks stable.hemoglobin 7.3.creatinine 0.8. Sugar controlled. Patient is being followed by several consultants including pulmonary critical care, cardiology and cardiothoracic surgery, infectious disease team. 10/18/2018 Patient is a stable with no chest pain or dyspnea. He is fully awake and oriented. Vitals stable. Hemoglobin 7.4, electrolytes and kidney function within normal levels. Sugar is controlled. Repeat chest x-ray: Possible CHF exacerbation as there is cardiomegaly with central vascular congestion as per radiologist's report. Patient remains on amiodarone, Zosyn and prednisone 30 mg. He is also on tramadol. I discussed the case with vascular surgery today and patient is stable from perspective to be transferred. Patient has been followed by several consultants including pulmonary and critical care team as well as infectious disease team. Objective - Vital Signs Vital signs: Vital Signs Temp 98.0 F 10/18/18 16:00 Pulse 87 10/18/18 17:00 Resp 22 10/18/18 16:00 BP 99/59 10/18/18 16:00 Pulse Ox 94 L 10/18/18 16:00 Intake & Output 10/17/18 10/18/18 10/18/18 18:59 06:59 18:59 Intake Total 230 150 220 Output Total 285 800 475 Balance -55 -650 -255 Weight 115.2 kg Intake: IV 230 150 220 Dextrose 5%-0.45% NaCl 1, 230 000 ml @ 50 mls/hr IV . Q20H [facility] Rx#:[id number] KVO 50 120 Piperacillin-Tazobactam 3 100 100 .375 gm In Sodium Chloride 0.9% 100 ml @ 25 mls/hr IVPB Q8HR [facility] Rx# :[id number] Output: Urine 285 800 475 Other: Voiding Method Indwelling Catheter Urinal Urinal # Voids 1 ABP, PAP, CO, CI - Last Documented Arterial Blood Pressure 126/58 - Exam GENERAL: The patient is alert and oriented x3, not in any acute distress. Well developed, well nourished. HEENT: Pupils are round and equally reacting to light. EOMI. No scleral icterus. No conjunctival pallor. Normocephalic, atraumatic. No pharyngeal erythema. No thyromegaly. CARDIOVASCULAR: S1 and S2 present. No murmurs, rubs, or gallops. -PULMONARY: Chest is clear to auscultation, no wheezing or crackles. sternotomy wound is closed and dressing is placed, Further examination is deferred to the surgical team ABDOMEN: Soft, nontender, nondistended, normoactive bowel sounds. No palpable organomegaly. MUSCULOSKELETAL: No joint swelling or deformity. EXTREMITIES: No cyanosis, clubbing, or pedal edema. NEUROLOGICAL: Gross neurological examination did not reveal any focal deficits. SKIN: No rashes. - Labs CBC & Chem 7: 10/18/18 04:27 10/18/18 04:27 Labs: Abnormal Lab Results - Last 24 Hours (Table) 10/17/18 10/18/18 10/18/18 Range/Units 20:25 04:27 04:27 RBC 2.71 L (4.30-5.90) m/uL Hgb 7.4 L (13.0-17.5) gm/dL Hct 24.6 L (39.0-53.0) % MCHC 30.0 L (31.0-37.0) g/dL RDW 16.9 H (11.5-15.5) % Carbon Dioxide 32 H (22-30) mmol/L Glucose 137 H (74-99) mg/dL POC Glucose (mg/dL) 182 H (75-99) mg/dL Calcium 8.3 L (8.4-10.2) mg/dL 10/18/18 10/18/18 10/18/18 Range/Units 07:07 12:01 17:10 RBC (4.30-5.90) m/uL Hgb (13.0-17.5) gm/dL Hct (39.0-53.0) % MCHC (31.0-37.0) g/dL RDW (11.5-15.5) % Carbon Dioxide (22-30) mmol/L Glucose (74-99) mg/dL POC Glucose (mg/dL) 148 H 146 H 210 H (75-99) mg/dL Calcium (8.4-10.2) mg/dL Microbiology - Last 24 Hours (Table) 10/15/18 03:04 Blood Culture - Preliminary Blood No Growth after 72 hours 10/15/18 03:04 Blood Culture - Preliminary Blood No Growth after 72 hours 10/15/18 14:12 Anaerobic Culture - Preliminary Chest 10/15/18 14:12 Gram Stain - Final Chest Wound Culture - Final Assessment and Plan Assessment: hematoma at the surgical site of previous CABG surgery, status post surgical evacuation. Recent history of aortic valve replacement for bicuspid aortic valve and CABG morbid obesity Hypertension Diabetes mellitus recent cigarette smoker hyperlipidemia Plan: this is a pleasant 68 years old male who presents because of hematoma at the surgical site of sternotomy for his CABG and valve replacement.patient remains in the ICU.continue with the current medical treatment including a breathing treatment, KIKA inhibitor, beta misbah,steroids and pain management. Continue with the current antibiotics as per infectious disease will follow and case.Labs and medication were reviewed.. Continue same treatment. Continue with symptomatic treatment. Resume home medication. Monitor lytes and vitals. DVT and GI prophylaxis. Further recommendations of the clinical course of the patient DVT prophylaxis: Subcutaneous heparin GI Prophylaxis: Ppi Prognosis is guarded
[2018-10-18 20:33] LABS: Glucose,Whole Blood 248 mg/dL (75-99)
[2018-10-18 21:35] LABS: Glucose,Whole Blood 189 mg/dL (75-99)
[2018-10-18] MEDS: ATORVASTATIN 20 MG TAB PO SCH (21:42)
[2018-10-19] MEDS: IPRATROPIUM-ALBUTEROL 3 ML NEB INHALATION SCH ×6 (03:21→21:58)
[2018-10-19 05:24] LABS: Anisocytosis Slight; Basophils % (A) 0 %; Eosinophils # (A) 0.1 k/uL (0-0.7); Eosinophils % (A) 2 %; HCT 27.1 % (39.0-53.0); Hypochromasia Marked; Lymphocytes # (A) 1.2 k/uL (1.0-4.8); Lymphocytes % (A) 17 %; MCH 27.4 pg (25.0-35.0); MCHC 29.7 g/dL (31.0-37.0); MCV 92.2 fL (80.0-100.0); Mean Platelet Volume 7.3; Monocytes # (A) 0.4 k/uL (0-1.0); Monocytes % (A) 5 %; Neutrophils # (A) 5.1 k/uL (1.3-7.7); Neutrophils % (A) 75 %; Platelet Count 363 k/uL (150-450); Poikilocytosis Moderate; RBC 2.94 m/uL (4.30-5.90); WBC 6.8 k/uL (3.8-10.6)
[2018-10-19 05:37] LABS: Anion Gap 8 mmol/L; Blood Urea Nitrogen 15 mg/dL (9-20); Calcium 8.4 mg/dL (8.4-10.2); Carbon Dioxide 31 mmol/L (22-30); Chloride 101 mmol/L (98-107); Glucose 82 mg/dL (74-99); Magnesium 2.1 mg/dL (1.6-2.3); Potassium 3.6 mmol/L (3.5-5.1); Sodium 140 mmol/L (137-145)
[2018-10-19] MEDS ORDERED: POTASSIUM CHLORIDE ER 20 MEQ TAB.ER PO SCH (06:00)
--- NOTE | 2018-10-19 06:21 | XR ---
EXAMINATION TYPE: XR chest 1V portable DATE OF EXAM: 10/19/2018 HISTORY: pleural effusion. REFERENCE: Previous study dated 10/18/2018. FINDINGS: There has been a midline sternotomy. The heart is enlarged. There is bibasilar airspace disease, worse on the left than the right. There a re small effusions. This is also worse on the left than the right. The overall appearance may have im proved slightly from the previous study. IMPRESSION: VERY SLIGHT IMPROVED AERATION OF THE CHEST IN COMPARISON WITH THE PREVIOUS STUDY.
[2018-10-19 07:04] LABS: Glucose,Whole Blood 88 mg/dL (75-99)
[2018-10-19] MEDS: INSULIN ASPART (NovoLOG) 100 UNIT/ML VIAL SQ SCH ×4 (07:14→21:12)
--- NOTE | 2018-10-19 09:08 | P.PN ---
Subjective Progress Note Date: 10/19/18 Principal diagnosis: Mechanical destruction of the sternum, status post aortic valve replacement and coronary artery bypass grafting on 09/24/18. History of bicuspid aortic valve wi th moderate to severe aortic valve stenosis, status post aortic valve replacement with a 27 mm magna ease pericardial bioprosthesis, coronary artery disease with left main disease status post triple vessel coronary artery bypass grafting surgery, chronic diastolic dysfunction, hypertension, hyperlipidemia, morbid obesity, previous tobacco dependence, postoperative atrial flutter with rapid ventricular response and mild COPD with FEV1 64% of predicted. POD #4 drainage of wound hematoma and reconstruction of the sternum using Tritium plating system. Postoperative acute blood loss anemia, unexpected but potential outcome. The patient is currently laying in bed with his head elevated. He is in no acute distress. He denies any complaints of pain or shortness of breath at this time. He remains hemodynamically stable and his remote telemetry showing normal sinus rhythm with a heart rate of 80 BPM. The Prevena dressing remains intact to his sternal incision. He reports he in the intensive care unit hallway yesterday with minimal assistance. He is achieving 1000 mL on his incentive s pirometry with encouragement. Objective - Vital Signs Vital signs: Vital Signs Temp 97.6 F 10/19/18 04:00 Pulse 80 10/19/18 08:21 Resp 18 10/19/18 04:00 BP 88/64 10/19/18 04:00 Pulse Ox 93 L 10/19/18 08:21 Intake & Output 10/18/18 10/19/18 10/19/18 18:59 06:59 18:59 Intake Total 220 220 Output Total 475 850 Balance -255 -630 Weight 115.2 kg 115.3 kg Intake: IV 220 220 KVO 120 120 Piperacillin-Tazobactam 3 100 100 .375 gm In Sodium Chloride 0.9% 100 ml @ 25 mls/hr IVPB Q8HR [facility] Rx# :[id number] Output: Urine 475 850 Other: Voiding Method Urinal Urinal ABP, PAP, CO, CI - Last Documented Arterial Blood Pressure 126/58 - Constitutional General appearance: Present: cooperative, morbidly obese, no acute distress - Respiratory Details: Lung sounds with scattered expiratory wheezes throughout, diminished his bilateral bases. Respirations are symmetrical and nonlabored. Oxygen saturation are 93% on 2 L nasal cannula. He is achieving 1000 mL on his incentive spirometry. - Cardiovascular Details: Regular rhythm and rate. S1 and S2 present, negative for S3, gallop or murmur. Sternum is stable. Remote telemetry showing normal sinus rhythm heart rate 80. Knee-high SUZIE hose and sequential compression devices in place to his bilateral lower extremities. Surgical support bra and heart hugger in place, he is demonstrating appropriate use. +1 generalized edema. - Gastrointestinal Gastrointestinal Comment(s): Abdomen is soft, nontender and nondistended. Hypoactive bowel sounds to all 4 abdominal quadrants. Obese. Tolerating oral intake. Passing flatus. - Genitourinary Genitourinary Comment(s): Voiding clear yellow urine. 550 mL output in the last 8 hours. - Integumentary Integumentary Comment(s): Skin is warm and dry. No clubbing or cyanosis is present. The Prevena wound VAC dressing in place to his midline sternal incision, the dressing is clean, dry and intact. - Neurologic Neurologic: Present: CNII-XII intact - Musculoskeletal Musculoskeletal: Present: gait normal, generalized weakness, strength equal bilaterally - Psychiatric Psychiatric: Present: A&O x's 3, appropriate affect, intact judgment & insight - Allied health notes Allied health notes reviewed: nursing - Labs CBC & Chem 7: 10/19/18 04:59 10/19/18 04:59 Labs: Abnormal Lab Results - Last 24 Hours (Table) 10/18/18 10/18/18 10/18/18 Range/Units 12:01 17:10 20:30 RBC (4.30-5.90) m/uL Hgb (13.0-17.5) gm/dL Hct (39.0-53.0) % MCHC (31.0-37.0) g/dL RDW (11.5-15.5) % Carbon Dioxide (22-30) mmol/L POC Glucose (mg/dL) 146 H 210 H 248 H (75-99) mg/dL 10/18/18 10/19/18 10/19/18 Range/Units 21:32 04:59 04:59 RBC 2.94 L (4.30-5.90) m/uL Hgb 8.0 L (13.0-17.5) gm/dL Hct 27.1 L (39.0-53.0) % MCHC 29.7 L (31.0-37.0) g/dL RDW 17.0 H (11.5-15.5) % Carbon Dioxide 31 H (22-30) mmol/L POC Glucose (mg/dL) 189 H (75-99) mg/dL Microbiology - Last 24 Hours (Table) 10/15/18 03:04 Blood Culture - Preliminary Blood No Growth after 96 hours 10/15/18 03:04 Blood Culture - Preliminary Blood No Growth after 96 hours - Imaging and Cardiology Chest x-ray: report reviewed, image reviewed Assessment and Plan Assessment: 1. Mechanical destruction of the sternum, status post reconstruction using Tritium plating system with placement of mediastinal chest tube for drainage of wound hematoma. 2. Status post aortic valve replacement on 09/24/2018. 3. Status post aortocoronary bypass grafting surgery 3 vessels on 09/24/2018. 4. History of bicuspid aortic valve with moderate to severe aortic valve stenosis. 5. History of coronary artery disease, with left main disease. 6. Anemia of chronic disease. 7. Hypertension, 8. Hyperlipidemia. 9. Chronic obstructive pulmonary disease with an FEV1 of 64% of predicted. 10. Morbid obesity. 11. Postoperative atrial flutter, currently normal sinus rhythm. 12. Chronic diastolic dysfunction. 13. Tobacco dependence in remission. 14. Postoperative acute blood loss anemia, status post transfusion of 1 unit packed red blood cells. Plan: 1. Continue aspirin, statin, KIKA inhibitor, and beta misbah. 2. Continue amiodarone for atrial fibrillation/atrial flutter prophylaxis. 3. Wean oxygen as tolerated. Encourage use of his incentive spirometry every hour while awake. 4. Increase activity as tolerated. PT/OT following. 5. Monitor daily labs and x-rays. No transfusions today. Replace electrolytes per protocol. 6. Steroids, bronchodilators per pulmonology. Currently on prednisone 30 mg by mouth daily. 7. Maintain Prevena VAC dressing in place. 8. GI prophylaxis with Protonix, DVT prophylaxis with subcu heparin, SCDs. 9. Pain control per current medication regimen. 10. Medical management of other comorbid conditions per primary, cardiology, pulmonology. 11. May transfer to cardiac stepdown unit from cardiothoracic surgery standpoint. 13. More recommendations to follow based on patient's clinical course. Time with Patient: Greater than 30
[2018-10-19] MEDS: PIPERACILLIN-TAZOBACTAM 3.375 GM in SODIUM CHLORIDE 0.9% 100 ML IVPB SCH ×3 (09:48→23:15)
[2018-10-19] MEDS: predniSONE 10 MG TAB PO SCH (09:48)
[2018-10-19] MEDS: PANTOPRAZOLE 40 MG TABLET PO SCH (09:48)
[2018-10-19] MEDS: HEPARIN SODIUM,PORCINE 5,000 UNIT/ML 1 ML VIAL SQ SCH ×3 (09:48→23:15)
[2018-10-19] MEDS: ASPIRIN 81 MG PO SCH (09:48)
[2018-10-19] MEDS: AMIODARONE 200 MG TAB PO SCH ×2 (09:48→21:12)
[2018-10-19] MEDS: SENNOSIDES 8.6 MG TAB PO SCH (09:49)
[2018-10-19] MEDS: METOPROLOL TARTRATE 50 MG TAB PO SCH ×4 (10:00→21:12)
[2018-10-19] MEDS ORDERED: SENNOSIDES 8.6 MG TAB PO PRN (10:01)
--- NOTE | 2018-10-19 11:04 | P.CRDCN ---
History of Present Illness Consult date: 10/19/18 Consult reason: shortness of breath History of present illness: HPI: Mr. Marina is 65-year-old male with known history of severe cardiomyopathy status post ICD implantation, persistent atrial fibrillation, congestive heart failure, chronic kidney disease, CAD status post CABG, who initially presented with symptoms of progressive dyspnea. Echocardiogram showed EF at 2025%. He was placed on dobutamine due to worsening renal function and Lasix drip. Overnight the patient became hypotensive Lasix was discontinued. This morning he has again hypotensive with systolics in the 60s. The patient states he continues to have shortness of breath and abdominal pain. Labs this morning: Sodium 132, potassium 4.2, creatinine 3.56, GFR 17, phosphorus 5.0, magnesium 2.3, TSH 1.77. Review of Systems Patient reports shortness of breath and abdominal pain. No Fever or chills. No cough or expectoration. No diaphoresis. Patient denies headache, dizziness, blurred vision, double vision. No nausea, vomiting. No hematochezia. No hematemesis. Denies any black stools or blood in his stools. Denies dysuria or hematuria. No muscle weakness or numbness. Past Medical History Past Medical History: Coronary Artery Disease (CAD), COPD, Hyperlipidemia, Hypertension Additional Past Medical History / Comment(s): Coronary artery disease and previous history of Bicuspid aortic valve with moderate to severe aortic valve stenosis with a peak gradient of 60 mmHg and a mean gradient of 30 mmHg across the aortic valve and moderate aortic valve regurgitation. The patient underwent coronary artery bypass surgery and aortic valve replacement with a prosthetic valve, Morbid obesity with a BMI of 42.9 kg/m, COPD, hyperlipidemia, hypertension, diabetes mellitus History of Any Multi-Drug Resistant Organisms: None Reported Past Surgical History: Cardiac Valve Replacement, Coronary Bypass/CABG, Heart Catheterization, Orthopedic Surgery Additional Past Surgical History / Comment(s): ORIF LEFT ANKLE, LACERATION REPAIR OF LEFT FOREARM,RT BREAST I&D, on 09/24/2018 patient underwent a triple- vessel coronary artery bypass grafting using the left internal mammary artery to left anterior setting coronary artery, a reverse greater saphenous vein graft from the aorta to the first diagonal coronary artery, a reverse greater saphenous vein graft from the aorta to the first obtuse marginal coronary artery, and aortic valve replacement using a #27 mm pericardial bioprosthesis magna ease and exclusion of his left atrial appendage using a 40 mm Atriclip. Past Anesthesia/Blood Transfusion Reactions: No Reported Reaction Additional Past Anesthesia/Blood Transfusion Reaction / Comment(s): hx no blood transfusion Past Psychological History: No Psychological Hx Reported Smoking Status: Former smoker Additional Past Alcohol Use History / Comment(s): Patient was smoker of 2 packs per day for 20 years about 5 years ago. He denies any marijuana or street drug or alcohol use. He worked in the past in an [employer]. He is currently living with his ex-. No pets in the home. - Past Family History Mother Family Medical History: Cancer Additional Family Medical History / Comment(s): LUNG CANCER Father Family Medical History: No Reported History Medications and Allergies Home Medications Medication Instructions Recorded Confirmed Type Cholecalciferol [Vitamin D3] 2,000 unit PO DAILY@0900 08/12/18 10/14/18 History Acetaminophen Tab [Tylenol] 650 mg PO Q6HR PRN 10/08/18 10/14/18 History Nitroglycerin Sl Tabs [Nitrostat] 0.4 mg SUBLINGUAL Q5M PRN tab 10/11/18 10/14/18 Rx Apixaban [Eliquis] 5 mg PO BID@0900,2100 10/14/18 10/14/18 History Aspirin 81 mg PO DAILY@0900 10/14/18 10/14/18 History Furosemide [Lasix] 40 mg PO BID@0600,1400 10/14/18 10/14/18 History Ipratropium-Albuterol Nebulize 3 ml INHALATION RT-Q8H 10/14/18 10/14/18 History [Duoneb 0.5 mg-3 mg/3 ml Soln] Lisinopril [Zestril] 2.5 mg PO BID@1200,1400 10/14/18 10/14/18 History Metoprolol Tartrate [Lopressor] 100 mg PO BID@0900,2100 10/14/18 10/14/18 History Pantoprazole [Protonix] 40 mg PO AC-BRKFST@0600 10/14/18 10/14/18 History Sennosides [Senokot] 8.6 mg PO DAILY@0900 10/14/18 10/14/18 History metFORMIN HCL [Glucophage] 500 mg PO BID@0900,1700 10/14/18 10/14/18 History predniSONE See Taper PO DAILY 10/14/18 10/14/18 History Allergies Allergy/AdvReac Type Severity Reaction Status Date / Time No Known Allergies Allergy Verified 10/14/18 12:42 Physical Exam Vitals: Vital Signs Temp Pulse Resp BP Pulse Ox 10/19/18 09:00 97.7 F 84 18 91/57 10/19/18 08:32 88 10/19/18 08:21 80 93 L 10/19/18 08:00 77 10/19/18 07:00 73 10/19/18 06:00 73 10/19/18 05:00 74 10/19/18 04:00 97.6 F 82 18 88/64 92 L 10/19/18 03:33 72 10/19/18 03:21 72 10/19/18 00:00 97.6 F 85 18 91/62 95 10/18/18 23:32 18 10/18/18 23:31 76 10/18/18 23:19 72 10/18/18 20:42 76 10/18/18 20:32 76 10/18/18 20:00 97.9 F 89 18 91/59 94 L 10/18/18 19:00 94 L 10/18/18 17:00 87 10/18/18 16:56 68 10/18/18 16:48 68 10/18/18 16:00 98.0 F 79 22 99/59 94 L 10/18/18 14:00 82 10/18/18 13:10 71 10/18/18 12:58 70 10/18/18 12:00 71 22 106/62 94 L 10/18/18 11:00 58 L 21 96 Intake and Output 10/18/18 10/19/18 10/19/18 22:59 06:59 14:59 Intake Total 80 180 Output Total 550 550 Balance -470 -370 Intake: IV 80 180 KVO 80 80 Piperacillin-Tazobactam 3 100 .375 gm In Sodium Chloride 0.9% 100 ml @ 25 mls/hr IVPB Q8HR [facility] Rx# :[id number] Output: Urine 550 550 Other: Voiding Method Urinal Urinal Weight 115.3 kg This is a 68-year-old male in no apparent distress at the time of my examination. HEENT: Head is atraumatic, normocephalic. Pupils are equal, round. Sclerae anicteric. Conjunctivae are clear. Mucous membranes of the mouth are moist. Neck is supple. There is no jugular venous distention. No carotid bruit is heard. CHEST EXAMINATION: Rhonchi and coarse crackles throughout.No chest wall tenderness is noted on palpation or with deep breathing. HEART EXAMINATION: Heart irregular rate and rhythm. S1, S2 heard. No murmurs, gallops or rub. ABDOMEN: Distended, tender to palpation. No organomegaly noted. EXTREMITIES: 2+ peripheral pulses with +1 lower extremity edema and no calf tenderness noted. NEUROLOGIC EXAMINATION: Patient is awake, alert and oriented x3. Currently resting. Results 10/19/18 04:59 10/19/18 04:59 CBC 10/19/18 Range/Units 04:59 WBC 6.8 (3.8-10.6) k/uL RBC 2.94 L (4.30-5.90) m/uL Hgb 8.0 L (13.0-17.5) gm/dL Hct 27.1 L (39.0-53.0) % Plt Count 363 (150-450) k/uL Comprehensive Metabolic Panel 10/19/18 Range/Units 04:59 Sodium 140 (137-145) mmol/L Potassium 3.6 (3.5-5.1) mmol/L Chloride 101 (98-107) mmol/L Carbon Dioxide 31 H (22-30) mmol/L BUN 15 (9-20) mg/dL Creatinine 0.77 (0.66-1.25) mg/dL Glucose 82 (74-99) mg/dL Calcium 8.4 (8.4-10.2) mg/dL Current Medications Generic Name Dose Route Start Last Admin Trade Name Freq PRN Reason Stop Dose Admin Acetaminophen 325 mg 10/16/18 12:16 Tylenol Tab PO Q4HR PRN Fever and/ or Pain Acetaminophen 650 mg 10/16/18 12:16 Tylenol Tab PO Q4HR PRN moderate Fever and/ or Pain Albuterol/Ipratropium 3 ml 10/14/18 20:07 Duoneb 0.5 Mg-3 Mg/3 Ml Soln INHALATION RT-Q2H PRN Shortness Of Breath Or Wheezing Albuterol/Ipratropium 3 ml 10/15/18 20:00 10/19/18 08:20 Duoneb 0.5 Mg-3 Mg/3 Ml Soln INHALATION 3 ml RT-Q4H [facility] Administration Amiodarone HCl 200 mg 10/17/18 09:00 10/19/18 09:48 Cordarone PO 200 mg BID [facility] Administration Aspirin 81 mg 10/15/18 09:00 10/19/18 09:48 Aspirin PO 81 mg DAILY@0900 [facility] Administration Atorvastatin Calcium 20 mg 10/16/18 21:00 10/18/18 21:42 Lipitor PO 20 mg HS [facility] Administration Docusate Sodium 100 mg 10/19/18 10:15 Colace PO BID [facility] Heparin Sodium (Porcine) 5,000 unit 10/14/18 17:15 10/19/18 09:48 Heparin SQ 5,000 unit Q8HR [facility] Administration Piperacillin Sod/Tazobactam 100 mls @ 25 mls/hr 10/16/18 09:00 10/19/18 09:48 Sod 3.375 gm/ Sodium Chloride IVPB 25 mls/hr Q8HR [facility] Administration Insulin Aspart 0 unit 10/16/18 17:30 10/19/18 07:14 Novolog SQ Not Given ACHS [facility] Protocol Lisinopril 2.5 mg 10/18/18 12:00 10/18/18 12:32 Zestril PO 2.5 mg DAILY@1200 [facility] Administration Metoprolol Tartrate 50 mg 10/19/18 10:00 10/19/18 10:00 Lopressor PO 50 mg TID [facility] Administration Miscellaneous Information 1 each 10/18/18 05:22 Potassium Per Protocol MISCELLANE DAILY PRN Per Protocol Protocol Naloxone HCl 0.2 mg 10/15/18 17:51 Narcan IV Q2M PRN Opioid Reversal Pantoprazole Sodium 40 mg 10/17/18 07:30 10/19/18 09:48 Protonix PO 40 mg AC-BRKFST [facility] Administration Prednisone 30 mg 10/17/18 10:15 10/19/18 09:48 PO 30 mg DAILY [facility] Administration Senna 8.6 mg 10/15/18 09:00 10/19/18 09:49 Senokot PO 8.6 mg DAILY@0900 [facility] Administration Senna 8.6 mg 10/19/18 10:01 Senokot PO DAILY PRN Constipation Sodium Chloride 10 ml 10/17/18 09:00 10/19/18 09:49 Saline Flush IV 10 ml BID [facility] Administration Tramadol HCl 50 mg 10/16/18 12:17 Ultram PO QID PRN Moderate to Severe Pain Intake and Output 10/18/18 10/19/18 10/19/18 22:59 06:59 14:59 Intake Total 80 180 Output Total 550 550 Balance -470 -370 Intake: IV 80 180 KVO 80 80 Piperacillin-Tazobactam 3 100 .375 gm In Sodium Chloride 0.9% 100 ml @ 25 mls/hr IVPB Q8HR [facility] Rx# :[id number] Output: Urine 550 550 Other: Voiding Method Urinal Urinal Weight 115.3 kg 10/19/18 04:59 10/19/18 04:59 Assessment and Plan Assessment: FINAL ASSESSMENT AND PLAN: 1. Congestive heart failure with severe systolic dysfunction. 2. Chronic renal failure, worsening. 3. Chronic persistent atrial fibrillation. 4. COPD. PLAN: We will reduce the dobutamine drip to 2.5 mg. Fluid challenge of 250 mg normal saline due to worsening kidney function and hypotension. Continue amiodarone for rate control and continue metoprolol 3 times a day. At this point, per Dr. Messina, there are no plans for cardioversion.
--- NOTE | 2018-10-19 11:18 | P.CRDCN ---
History of Present Illness History of present illness: The patient is a 67-year-old male with a history of recent coronary artery bypass grafting with a AVR, who underwent redo sternotomy due to infection. He is currently sitting up in a chair eating his breakfast and states he is doing well. He is mildly hypotensive this morning however denies any dizziness, lightheadedness, or fatigue. He also denies any chest pain or discomfort. Labs this morning show hemoglobin 8.0, WBC is 6.8, potassium 3.6, sodium 140, creatinine 0.77 Vital signs show systolics in the 90s, with heart rates averaging in the 70s to 80s, saturating in the low 90s on 2 L nasal. Review of Systems Patient denies any chest pain or discomfort. No palpitations. No dizziness or lightheadedness. No shortness of breath. No fever or chills. No cough or expectoration. No diaphoresis. Patient denies headache, dizziness, blurred vi marielena, double vision. Patient denies any stomach discomfort. No nausea, vomiting. No hematochezia. No hematemesis. Denies any black stools or blood in his stools. Denies dysuria or hematuria. No muscle weakness or numbness. Past Medical History Past Medical History: Coronary Artery Disease (CAD), COPD, Hyperlipidemia, Hypertension Additional Past Medical History / Comment(s): Coronary artery disease and previous history of Bicuspid aortic valve with moderate to severe aortic valve stenosis with a peak gradient of 60 mmHg and a mean gradient of 30 mmHg across the aortic valve and moderate aortic valve regurgitation. The patient underwent coronary artery bypass surgery and aortic valve replacement with a prosthetic valve, Morbid obesity with a BMI of 42.9 kg/m, COPD, hyperlipidemia, hypertension, diabetes mellitus History of Any Multi-Drug Resistant Organisms: None Reported Past Surgical History: Cardiac Valve Replacement, Coronary Bypass/CABG, Heart Catheterization, Orthopedic Surgery Additional Past Surgical History / Comment(s): ORIF LEFT ANKLE, LACERATION REPAIR OF LEFT FOREARM,RT BREAST I&D, on 09/24/2018 patient underwent a triple- vessel coronary artery bypass grafting using the left internal mammary artery to left anterior setting coronary artery, a reverse greater saphenous vein graft from the aorta to the first diagonal coronary artery, a reverse greater saphenous vein graft from the aorta to the first obtuse marginal coronary artery, and aortic valve replacement using a #27 mm pericardial bioprosthesis magna ease and exclusion of his left atrial appendage using a 40 mm Atriclip. Past Anesthesia/Blood Transfusion Reactions: No Reported Reaction Additional Past Anesthesia/Blood Transfusion Reaction / Comment(s): hx no blood transfusion Past Psychological History: No Psychological Hx Reported Smoking Status: Former smoker Additional Past Alcohol Use History / Comment(s): Patient was smoker of 2 packs per day for 20 years about 5 years ago. He denies any marijuana or street drug or alcohol use. He worked in the past in an [email or web address]. He is currently living with his ex-. No pets in the home. - Past Family History Mother Family Medical History: Cancer Additional Family Medical History / Comment(s): LUNG CANCER Father Family Medical History: No Reported History Medications and Allergies Home Medications Medication Instructions Recorded Confirmed Type Cholecalciferol [Vitamin D3] 2,000 unit PO DAILY@0900 08/12/18 10/14/18 History Acetaminophen Tab [Tylenol] 650 mg PO Q6HR PRN 10/08/18 10/14/18 History Nitroglycerin Sl Tabs [Nitrostat] 0.4 mg SUBLINGUAL Q5M PRN tab 10/11/18 10/14/18 Rx Apixaban [Eliquis] 5 mg PO BID@0900,2100 10/14/18 10/14/18 History Aspirin 81 mg PO DAILY@0900 10/14/18 10/14/18 History Furosemide [Lasix] 40 mg PO BID@0600,1400 10/14/18 10/14/18 History Ipratropium-Albuterol Nebulize 3 ml INHALATION RT-Q8H 10/14/18 10/14/18 History [Duoneb 0.5 mg-3 mg/3 ml Soln] Lisinopril [Zestril] 2.5 mg PO BID@1200,1400 10/14/18 10/14/18 History Metoprolol Tartrate [Lopressor] 100 mg PO BID@0900,2100 10/14/18 10/14/18 History Pantoprazole [Protonix] 40 mg PO AC-BRKFST@0600 10/14/18 10/14/18 History Sennosides [Senokot] 8.6 mg PO DAILY@0900 03/25/19 03/25/19 History metFORMIN HCL [Glucophage] 500 mg PO BID@0900,1700 10/14/18 10/14/18 History predniSONE See Taper PO DAILY 10/14/18 10/14/18 History Allergies Allergy/AdvReac Type Severity Reaction Status Date / Time No Known Allergies Allergy Verified 10/14/18 12:42 Physical Exam Vitals: Vital Signs Temp Pulse Resp BP Pulse Ox 10/19/18 09:00 97.7 F 84 18 91/57 10/19/18 08:32 88 10/19/18 08:21 80 93 L 10/19/18 08:00 77 10/19/18 07:00 73 10/19/18 06:00 73 10/19/18 05:00 74 10/19/18 04:00 97.6 F 82 18 88/64 92 L 10/19/18 03:33 72 10/19/18 03:21 72 10/19/18 00:00 97.6 F 85 18 91/62 95 10/18/18 23:32 18 10/18/18 23:31 76 10/18/18 23:19 72 10/18/18 20:42 76 10/18/18 20:32 76 10/18/18 20:00 97.9 F 89 18 91/59 94 L 10/18/18 19:00 94 L 10/18/18 17:00 87 10/18/18 16:56 68 10/18/18 16:48 68 10/18/18 16:00 98.0 F 79 22 99/59 94 L 10/18/18 14:00 82 10/18/18 13:10 71 10/18/18 12:58 70 10/18/18 12:00 71 22 106/62 94 L Intake and Output 10/18/18 10/19/18 10/19/18 22:59 06:59 14:59 Intake Total 80 180 Output Total 550 550 Balance -470 -370 Intake: IV 80 180 KVO 80 80 Piperacillin-Tazobactam 3 100 .375 gm In Sodium Chloride 0.9% 100 ml @ 25 mls/hr IVPB Q8HR [facility] Rx# :[id number] Output: Urine 550 550 Other: Voiding Method Urinal Urinal Weight 115.3 kg PHYSICAL EXAMINATION: This is a 68-year-old male in no apparent distress at the time of my examination. HEENT: Head is atraumatic, normocephalic. Pupils are equal, round. Sclerae anicteric. Conjunctivae are clear. Mucous membranes of the mouth are moist. Neck is supple. There is no jugular venous distention. No carotid bruit is heard. CHEST EXAMINATION: Lungs are clear to auscultation. No chest wall tenderness is noted on palpation or with deep breathing. HEART EXAMINATION: Heart regular rate and rhythm. S1, S2 heard. No murmurs, gallops or rub. ABDOMEN: Soft, nontender. Bowel sounds are heard. No organomegaly noted. EXTREMITIES: 2+ peripheral pulses with no evidence of peripheral edema and no calf tenderness noted. NEUROLOGIC EXAMINATION: Patient is awake, alert and oriented x3. Surgical incision is covered by wound VAC, maintaining suction. Results 10/19/18 04:59 10/19/18 04:59 CBC 10/19/18 Range/Units 04:59 WBC 6.8 (3.8-10.6) k/uL RBC 2.94 L (4.30-5.90) m/uL Hgb 8.0 L (13.0-17.5) gm/dL Hct 27.1 L (39.0-53.0) % Plt Count 363 (150-450) k/uL Comprehensive Metabolic Panel 10/19/18 Range/Units 04:59 Sodium 140 (137-145) mmol/L Potassium 3.6 (3.5-5.1) mmol/L Chloride 101 (98-107) mmol/L Carbon Dioxide 31 H (22-30) mmol/L BUN 15 (9-20) mg/dL Creatinine 0.77 (0.66-1.25) mg/dL Glucose 82 (74-99) mg/dL Calcium 8.4 (8.4-10.2) mg/dL Current Medications Generic Name Dose Route Start Last Admin Trade Name Freq PRN Reason Stop Dose Admin Acetaminophen 325 mg 10/16/18 12:16 Tylenol Tab PO Q4HR PRN Fever and/ or Pain Acetaminophen 650 mg 10/16/18 12:16 Tylenol Tab PO Q4HR PRN moderate Fever and/ or Pain Albuterol/Ipratropium 3 ml 10/14/18 20:07 Duoneb 0.5 Mg-3 Mg/3 Ml Soln INHALATION RT-Q2H PRN Shortness Of Breath Or Wheezing Albuterol/Ipratropium 3 ml 10/15/18 20:00 10/19/18 08:20 Duoneb 0.5 Mg-3 Mg/3 Ml Soln INHALATION 3 ml RT-Q4H [facility] Administration Amiodarone HCl 200 mg 10/17/18 09:00 10/19/18 09:48 Cordarone PO 200 mg BID [facility] Administration Aspirin 81 mg 10/15/18 09:00 10/19/18 09:48 Aspirin PO 81 mg DAILY@0900 [facility] Administration Atorvastatin Calcium 20 mg 10/16/18 21:00 10/18/18 21:42 Lipitor PO 20 mg HS [facility] Administration Docusate Sodium 100 mg 10/19/18 10:15 Colace PO BID [facility] Heparin Sodium (Porcine) 5,000 unit 10/14/18 17:15 10/19/18 09:48 Heparin SQ 5,000 unit Q8HR [facility] Administration Piperacillin Sod/Tazobactam 100 mls @ 25 mls/hr 10/16/18 09:00 10/19/18 09:48 Sod 3.375 gm/ Sodium Chloride IVPB 25 mls/hr Q8HR [facility] Administration Insulin Aspart 0 unit 10/16/18 17:30 10/19/18 07:14 Novolog SQ Not Given ACHS [facility] Protocol Lisinopril 2.5 mg 10/18/18 12:00 10/18/18 12:32 Zestril PO 2.5 mg DAILY@1200 [facility] Administration Metoprolol Tartrate 50 mg 10/19/18 10:00 10/19/18 10:00 Lopressor PO 50 mg TID [facility] Administration Miscellaneous Information 1 each 10/18/18 05:22 Potassium Per Protocol MISCELLANE DAILY PRN Per Protocol Protocol Naloxone HCl 0.2 mg 10/15/18 17:51 Narcan IV Q2M PRN Opioid Reversal Pantoprazole Sodium 40 mg 10/17/18 07:30 10/19/18 09:48 Protonix PO 40 mg AC-BRKFST [facility] Administration Prednisone 30 mg 10/17/18 10:15 10/19/18 09:48 PO 30 mg DAILY [facility] Administration Senna 8.6 mg 10/15/18 09:00 10/19/18 09:49 Senokot PO 8.6 mg DAILY@0900 [facility] Administration Senna 8.6 mg 10/19/18 10:01 Senokot PO DAILY PRN Constipation Sodium Chloride 10 ml 10/17/18 09:00 10/19/18 09:49 Saline Flush IV 10 ml BID [facility] Administration Tramadol HCl 50 mg 10/16/18 12:17 Ultram PO QID PRN Moderate to Severe Pain Intake and Output 10/18/18 10/19/18 10/19/18 22:59 06:59 14:59 Intake Total 80 180 Output Total 550 550 Balance -470 -370 Intake: IV 80 180 KVO 80 80 Piperacillin-Tazobactam 3 100 .375 gm In Sodium Chloride 0.9% 100 ml @ 25 mls/hr IVPB Q8HR [facility] Rx# :[id number] Output: Urine 550 550 Other: Voiding Method Urinal Urinal Weight 115.3 kg 10/19/18 04:59 10/19/18 04:59 Assessment and Plan Assessment: #1 Status post redo sternotomy #2 status post CABG and aortic valve replacement #3 Atrial flutter, currently in sinus rhythm #4 history of COPD #5 hypertension, currently mildly hypotensive Plan: Continue the current therapy without changes to the current regimen. Consider reduction in cardiac medications if patient become symptomatic with hypotension.
[2018-10-19 12:12] LABS: Glucose,Whole Blood 162 mg/dL (75-99)
[2018-10-19] MEDS: LISINOPRIL 2.5 MG TAB PO SCH (12:39)
[2018-10-19] MEDS: DOCUSATE 100 MG CAP PO SCH ×2 (12:39→21:12)
--- NOTE | 2018-10-19 12:51 | P.PN ---
Subjective Progress Note Date: 10/19/18 Principal diagnosis: Status post reconstruction of sternum using tritium plating system. Postoperative day #4 This is a 67-year-old gentleman who follows with Dr. Don as his primary care physician. He has a past medical history of hypertension, hyperlipidemia, morbid obesity, previous tobacco dependence, chronic obstructive pulmonary disease with FEV1 value 64% of predicted. He was also recently found to have significant coronary artery disease and on 09/24/2018 that he had undergone a artery bypass surgery He had done well and was subsequently discharged on 09/30/2018.. He re presented here on 10/08/2018 WITH increased shortness of breath and atrial fibrillation with a rapid ventricular response and was treated for acute hypoxic respiratory failure and rate control with amiodarone. He was again discharged to an extended care facility on 10/11/2018. He remains presented here yesterday after developing oozing from his sternal wound. Computed tomography scan of the chest revealed fluid collection subcutaneous tissues extending to the sternotomy line inferiorly into the anterior mediastinum. Suspected abscess versus hemorrhage. There was a diastases of the sternotomy line. Moderate pericardial effusion and a small left pleural effusion. Today he had undergone a sternal reconstruction with plating and removal of the sternal wires by Dr. Enriquez. He is seen in consultation today in the intensive care unit postoperatively. He is intubated and on the mechanical ventilator. Current settings are assist control 12, tidal volume 600, FiO2 50% and a PEEP of 5. Arterial blood gases reveal pO2 of 80, pCO2 of 52 and a pH of 7.45. Chest x-ray shows bilateral atelectasis. He currently has a D5 and half- normal saline at 70 ML's per hour. He's been initiated on Kefzol for 2 doses. He is on heparin subcutaneous for DVT prophylaxis and DuoNeb inhalations every 4 hours. Preop labs revealed a WBC 9.8. Hemoglobin 8.5. Platelet count 407,000. Creatinine 0.84. He'll remain sedated with propofol throughout the evening. Patient was reevaluated today on 10/16/2018, remains on mechanical ventilations, his FiO2 is down to 40%, tidal volume remains at 600, assist control rate is 14. PEEP is at 5. Patient is sedated, presently receiving a unit of packed RBCs for low hemoglobin of 6.5. Patient is on propofol which I will discontinue once the blood is given, and I plan to address weaning and possibly extubation this morning. ABG on 50% FiO2 showed a pO2 of 120 pCO2 of 49 pH of 7.47. Electrolytes are normal renal profile is normal bicarb is 35. CBC showed a hemoglobin of 6.5 WBC count 6.4. Chest x-ray showed worsening small left pleura l effusion, and by basilar atelectasis or possible aspirated disease, hence I have recommended empiric Zosyn to be started. Patient was reevaluated today on 10/17/2018, he was extubated yesterday unev entfully, he is presently on few liters nasal cannula, O2 saturation is in the mid 90s. Patient is not in any form of respiratory distress. His chest x-ray showed left basilar atelectasis and possibly pleural effusion, ultrasound of the chest showed small pleural effusion, and I did not feel that it is safe to perform thoracentesis. In the meantime the patient will remain on bronchodilators, oral steroids, and diuretics. WBC count is 7.6 hemoglobin is 7.3. Electrolytes are normal. Patient is asymptomatic, compliant with incentive spirometry, and using his heart hugger when coughing. Patient was reevaluated today on 2018, patient is doing fairly well.he is now postoperative day #3 status post drainage of wound hematoma and reconstruction of sternum using tritium plating system. Patient denies any specific complaints, he is on couple of liters nasal cannula, saturating well. Chest x-ray is showing left lower lobe atelectasis, minimal left pleural effusion, underlying infiltrate is not entirely ruled out but felt to be less likely.hemoglobin is 7.4 electrolytes and basic metabolic profile are normal. Patient was reevaluated today on 10/19/2018, patient is doing well, sitting in bed, relatively asymptomatic, denies any shortness of breath, no cough, no wheezing. Patient is hemodynamically stable, and he is presently an overflow from telemetry/selective. Patient is achieving 1000 ML in his incentive spirometry. Chest x-ray was reviewed and all his labs were reviewed. Objective - Vital Signs Vital signs: Vital Signs Temp 97.7 F 10/19/18 09:00 Pulse 75 10/19/18 12:26 Resp 18 10/19/18 12:00 BP 107/64 10/19/18 12:00 Pulse Ox 96 10/19/18 12:00 Intake & Output 10/18/18 10/19/18 10/19/18 18:59 06:59 18:59 Intake Total 220 220 380 Output Total 475 850 100 Balance -255 -630 280 Weight 115.2 kg 115.3 kg Intake: IV 220 220 140 KVO 120 120 40 Piperacillin-Tazobactam 3 100 100 100 .375 gm In Sodium Chloride 0.9% 100 ml @ 25 mls/hr IVPB Q8HR ON LICENSE OF [facility] Rx# :[id number] Oral 240 Output: Urine 475 850 100 Other: Voiding Method Urinal Urinal Urinal ABP, PAP, CO, CI - Last Documented Arterial Blood Pressure 126/58 - Exam GENERAL EXAM: Physical exam revealed a 67-year-old white male, in no distress.on 2 L nasal cannula. HEAD: Normocephalic. Atraumatic. EYES: Normal reaction of pupils, equal size. NOSE: Clear with pink turbinates. THROAT: Oral endotracheal and gastric tube secured in place. No erythema or exudates. NECK: No masses, no JVD. CHEST: Diminished breath sounds at the bases, minimal crackles at the bases, LUNGS:fine crackles at the left base, otherwise unremarkable. Symmetrical chest expansion. No rhonchi and no wheezes. CVS: S1 and S2 normal with no audible murmur, regular rhythm. ABDOMEN: No hepatosplenomegaly, normal bowel sounds, no guarding or rigidity. SPINE: No scoliosis or deformity SKIN: No rashes CENTRAL NERVOUS SYSTEM: Alert, oriented 3, no gross focal neurologic deficits. EXTREMITIES: There is no peripheral edema. No clubbing, no cyanosis. Peripheral pulses are intact. - Labs CBC & Chem 7: 10/19/18 04:59 10/19/18 04:59 Labs: Abnormal Lab Results - Last 24 Hours (Table) 10/18/18 10/18/18 10/18/18 Range/Units 17:10 20:30 21:32 RBC (4.30-5.90) m/uL Hgb (13.0-17.5) gm/dL Hct (39.0-53.0) % MCHC (31.0-37.0) g/dL RDW (11.5-15.5) % Carbon Dioxide (22-30) mmol/L POC Glucose (mg/dL) 210 H 248 H 189 H (75-99) mg/dL 10/19/18 10/19/18 10/19/18 Range/Units 04:59 04:59 12:09 RBC 2.94 L (4.30-5.90) m/uL Hgb 8.0 L (13.0-17.5) gm/dL Hct 27.1 L (39.0-53.0) % MCHC 29.7 L (31.0-37.0) g/dL RDW 17.0 H (11.5-15.5) % Carbon Dioxide 31 H (22-30) mmol/L POC Glucose (mg/dL) 162 H (75-99) mg/dL Microbiology - Last 24 Hours (Table) 10/15/18 03:04 Blood Culture - Preliminary Blood No Growth after 96 hours 10/15/18 03:04 Blood Culture - Preliminary Blood No Growth after 96 hours Assessment and Plan Assessment: #1 status post sternal reconstruction with plating and removal of sternal wires. Postoperative day #4 #2 Mechanical ventilation support required postoperatively as an expected outcome of surgery. Patient was extubated on 10/16/2018 uneventfully and norberto erated extubation well. #3 Recent coronary artery bypass grafting and aortic valve replacement on 0 09/24/2018 including a SNELL to the LAD, reverse saphenous vein graft to the first diagonal artery, reverse saphenous vein graft to the obtuse marginal artery and an elective aortic valve replacement utilizing a #27 mm paracardial bioprosthesis magna ease valve. Discharged to ECF on 09/30/2089 #4 Readmission following surgery for acute hypoxic respiratory failure and atrial flutter with rapid ventricular response. Discharged to ECF on 10/11/2018. #5 morbid obesity. #6 Chronic obstructive pulmonary disease with baseline FEV1 value 64% of predicted. #7 Hypertension. #8 Hyperlipidemia. #9 Diabetes mellitus. 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 #11 small postoperative pleural effusion, and atelectasis, expected after such surgery. Recommendation: Continue cardiac meds including KIKA inhibitor's beta blockers and statin and aspirin, patient will be started on amiodarone for A. fib/flutter prophylaxis.. Continue to wean oxygen as tolerated, increase activity as tolerated, difficult therapy and occupational therapy, monitor labs and chest x- ray, cut down IV steroids to oral prednisone 30 mg daily, continue bronchodilators as ordered, no need for thoracentesis as the amount of the fluid seems to be relatively small. And it is rather risky to perform thoracentesis at this point. Continue pain control, continue anticoagulations therapy, patient will be moved out of the ICU later today once a bed becomes available. Time with Patient: Less than 30
--- NOTE | 2018-10-19 13:04 | P.PN ---
Subjective this is a pleasant 68 years old male status post recent aortic valve replacement for bicuspid aortic valve with coronary artery bypass surgery. Admitted for bleeding from lower sternotomy site, hematoma was evacuated also hemopericardium was evacuated as well.patient remains in the ICU, he resting comfortably not in distress. He denies chest pain. No abdominal pain. No change in urine or bowel habits. No feverrest of Vitas looks stable.hemoglobin 7.3.creatinine 0.8. Sugar controlled. Patient is being followed by several consultants including pulmonary critical care, cardiology and cardiothoracic surgery, infectious disease team. 10/18/2018 Patient is a stable with no chest pain or dyspnea. He is fully awake and oriented. Vitals stable. Hemoglobin 7.4, electrolytes and kidney function within normal levels. Sugar is controlled. Repeat chest x-ray: Possible CHF exacerbation as there is cardiomegaly with central vascular congestion as per radiologist's report. Patient remains on amiodarone, Zosyn and prednisone 30 mg. He is also on tramadol. I discussed the case with vascular surgery today and patient is stable from perspective to be transferred. Patient has been followed by several consultants including pulmonary and critical care team as well as infectious disease team. 10/19/2018 Patient remains in the ICU, his abdominal pain is controlled. He is doing well with no chest pain or dyspnea. patient was started on Colace and senna for constipation. his blood pressure on the low normal side. No dizziness or syncope Objective - Vital Signs Vital signs: Vital Signs Temp 97.7 F 10/19/18 09:00 Pulse 75 10/19/18 12:26 Resp 18 10/19/18 12:00 BP 107/64 10/19/18 12:00 Pulse Ox 96 10/19/18 12:00 Intake & Output 10/18/18 10/19/18 10/19/18 18:59 06:59 18:59 Intake Total 220 220 380 Output Total 475 850 100 Balance -255 -630 280 Weight 115.2 kg 115.3 kg Intake: IV 220 220 140 KVO 120 120 40 Piperacillin-Tazobactam 3 100 100 100 .375 gm In Sodium Chloride 0.9% 100 ml @ 25 mls/hr IVPB Q8HR [facility] Rx# :[id number] Oral 240 Output: Urine 475 850 100 Other: Voiding Method Urinal Urinal Urinal ABP, PAP, CO, CI - Last Documented Arterial Blood Pressure 126/58 - Exam GENERAL: The patient is alert and oriented x3, not in any acute distress. Well developed, well nourished. HEENT: Pupils are round and equally reacting to light. EOMI. No scleral icterus. No conjunctival pallor. Normocephalic, atraumatic. No pharyngeal erythema. No thyromegaly. CARDIOVASCULAR: S1 and S2 present. No murmurs, rubs, or gallops. -PULMONARY: Chest is clear to auscultation, no wheezing or crackles. sternotomy wound is closed and dressing is placed, Further examination is deferred to the surgical team ABDOMEN: Soft, nontender, nondistended, normoactive bowel sounds. No palpable organomegaly. MUSCULOSKELETAL: No joint swelling or deformity. EXTREMITIES: No cyanosis, clubbing, or pedal edema. NEUROLOGICAL: Gross neurological examination did not reveal any focal deficits. SKIN: No rashes. - Labs CBC & Chem 7: 10/19/18 04:59 10/19/18 04:59 Labs: Abnormal Lab Results - Last 24 Hours (Table) 10/18/18 10/18/18 10/18/18 Range/Units 17:10 20:30 21:32 RBC (4.30-5.90) m/uL Hgb (13.0-17.5) gm/dL Hct (39.0-53.0) % MCHC (31.0-37.0) g/dL RDW (11.5-15.5) % Carbon Dioxide (22-30) mmol/L POC Glucose (mg/dL) 210 H 248 H 189 H (75-99) mg/dL 10/19/18 10/19/18 10/19/18 Range/Units 04:59 04:59 12:09 RBC 2.94 L (4.30-5.90) m/uL Hgb 8.0 L (13.0-17.5) gm/dL Hct 27.1 L (39.0-53.0) % MCHC 29.7 L (31.0-37.0) g/dL RDW 17.0 H (11.5-15.5) % Carbon Dioxide 31 H (22-30) mmol/L POC Glucose (mg/dL) 162 H (75-99) mg/dL Microbiology - Last 24 Hours (Table) 10/15/18 03:04 Blood Culture - Preliminary Blood No Growth after 96 hours 10/15/18 03:04 Blood Culture - Preliminary Blood No Growth after 96 hours Assessment and Plan Assessment: hematoma at the surgical site of previous CABG surgery, status post surgical evacuation. Recent history of aortic valve replacement for bicuspid aortic valve and CABG morbid obesity Hypertension Diabetes mellitus recent cigarette smoker hyperlipidemia Plan: this is a pleasant 68 years old male who presents because of hematoma at the surgical site of sternotomy for his CABG and valve replacement.patient remains in the ICU.continue with the current medical treatment including a breathing treatment, KIKA inhibitor, beta misbah,steroids and pain management. Continue with the current antibiotics as per infectious disease will follow and case.Labs and medication were reviewed.. Continue same treatment. Continue with symptomatic treatment. Resume home medication. Monitor lytes and vitals. DVT and GI prophylaxis. Further recommendations of the clinical course of the patient DVT prophylaxis: Subcutaneous heparin GI Prophylaxis: Ppi Prognosis is guarded
[2018-10-19] MEDS: methylPREDNISolone SOD SUCCI 40 MG/ML 1 ML VIAL IV SCH (14:30)
[2018-10-19 16:29] LABS: Glucose,Whole Blood 254 mg/dL (75-99)
[2018-10-19 20:33] LABS: Glucose,Whole Blood 168 mg/dL (75-99)
[2018-10-19] MEDS: ATORVASTATIN 20 MG TAB PO SCH (21:12)
[2018-10-20 01:47] LABS: Glucose,Whole Blood 94 mg/dL (75-99)
[2018-10-20 06:17] LABS: Glucose,Whole Blood 105 mg/dL (75-99)
[2018-10-20] MEDS: INSULIN ASPART (NovoLOG) 100 UNIT/ML VIAL SQ SCH ×4 (06:17→21:11)
[2018-10-20] MEDS: PANTOPRAZOLE 40 MG TABLET PO SCH (06:30)
[2018-10-20] MEDS ORDERED: FUROSEMIDE 10 MG/ML 2 ML VIAL IV ONE ×2 (07:30→14:00)
[2018-10-20] MEDS: AMIODARONE 200 MG TAB PO SCH ×2 (08:23→20:54)
[2018-10-20] MEDS: predniSONE 10 MG TAB PO SCH (08:23)
[2018-10-20] MEDS: ASPIRIN 81 MG PO SCH (08:23)
[2018-10-20] MEDS: HEPARIN SODIUM,PORCINE 5,000 UNIT/ML 1 ML VIAL SQ SCH ×3 (08:23→22:56)
[2018-10-20] MEDS: SENNOSIDES 8.6 MG TAB PO SCH (08:23)
[2018-10-20] MEDS: DOCUSATE 100 MG CAP PO SCH ×2 (08:23→20:54)
[2018-10-20] MEDS: METOPROLOL TARTRATE 50 MG TAB PO SCH ×3 (08:23→20:54)
[2018-10-20] MEDS: IPRATROPIUM-ALBUTEROL 3 ML NEB INHALATION SCH ×4 (09:07→21:26)
[2018-10-20 09:35] LABS: Anisocytosis Slight; HCT 31.3 % (39.0-53.0); HGB 9.4 gm/dL (13.0-17.5); Hypochromasia Marked; MCH 27.6 pg (25.0-35.0); MCHC 30.1 g/dL (31.0-37.0); MCV 91.7 fL (80.0-100.0); Mean Platelet Volume 7.1; Platelet Count 361 k/uL (150-450); Poikilocytosis Moderate; RBC 3.41 m/uL (4.30-5.90); RDW 16.6 % (11.5-15.5); WBC 8.8 k/uL (3.8-10.6)
[2018-10-20] MEDS: PIPERACILLIN-TAZOBACTAM 3.375 GM in SODIUM CHLORIDE 0.9% 100 ML IVPB SCH ×3 (09:38→22:57)
--- NOTE | 2018-10-20 09:46 | P.PN ---
Subjective Progress Note Date: 10/20/18 IMPRESSION / ASSESSMENT: #1 Status post redo sternotomy #2 status post CABG and aortic valve replacement #3 paroxysmal Atrial flutter, currently in sinus rhythm #4 history of COPD #5 hypertension, currently mildly hypotensive PLAN: Continue amiodarone 200 mg twice daily for 1 month Continue aspirin 81 mg daily, Lipitor 20 mg at bedtime, lisinopril 2.5 mg daily, Lopressor 50 mg 3 times daily HPI The patient is a 68-year-old male with a history of recent coronary artery bypass grafting with a AVR, who underwent redo sternotomy due to fluid collection. Patient is sitting up in a recliner appears to be comfortable. He states his appetite has been good. No change in his lower extremity edema which is chronic. Patient denies any dizziness, lightheadedness, or fatigue. He also denies any chest pain or discomfort. Patient is been afebrile, heart rate in the 70s and 80s, ekg monitor tech is a sinus rhythm, blood pressure 122/61, pulse ox 95% on room air. Morning labs are currently pending. ROS: No fever chills or rigors, no cough, phlegm or expectoration, no nausea, vomiting or diarrhea, no hematuria, dysuria, no musculoskeletal complaints, no strokes or seizures, no skin lesions. EXAMINATION: Gen: This is a 68-year-old morbidly obese male. He is sitting in a recliner appears to be comfortable in no acute distress. HEENT: Head is atraumatic, normocephalic. Pupils equal, round. Sclerae is anicteric. NECK: Supple. No JVD. LUNGS: Clear to auscultation. No wheezes or rhonchi. No intercostal retractions. HEART: Regular rate and rhythm. Systolic murmur. ABDOMEN: Soft. Bowel sounds are present. No masses. No tenderness. EXTREMITIES: No pedal edema. No calf tenderness. NEUROLOGICAL: Patient is awake, alert and oriented x3. Cranial nerves 2 through 12 are grossly intact. Nurse practitioner note has been reviewed, I agree with documented findings and plan of care. Patient was seen and examined. Objective - Vital Signs Vital signs: Vital Signs Temp 96.4 F L 10/20/18 08:26 Pulse 74 10/20/18 09:17 Resp 18 10/20/18 08:26 BP 122/61 10/20/18 08:26 Pulse Ox 95 10/20/18 08:26 Intake & Output 10/19/18 10/20/18 10/20/18 18:59 06:59 18:59 Intake Total 380 Output Total 500 350 Balance -120 -350 Weight 119.2 kg Intake: IV 140 KVO 40 Piperacillin-Tazobactam 3 100 .375 gm In Sodium Chloride 0.9% 100 ml @ 25 mls/hr IVPB Q8HR COUNTS INCLUDE 234 BEDS AT THE [facility] Rx# :[id number] Oral 240 Output: Urine 500 350 Other: Voiding Method Urinal Urinal Urinal # Voids 1 ABP, PAP, CO, CI - Last Documented Arterial Blood Pressure 126/58 - Labs CBC & Chem 7: 10/19/18 04:59 10/19/18 04:59 Labs: Abnormal Lab Results - Last 24 Hours (Table) 10/19/18 10/19/18 10/19/18 Range/Units 12:09 16:22 20:30 POC Glucose (mg/dL) 162 H 254 H 168 H (75-99) mg/dL 10/20/18 Range/Units 06:15 POC Glucose (mg/dL) 105 H (75-99) mg/dL Microbiology - Last 24 Hours (Table) 10/15/18 03:04 Blood Culture - Preliminary Blood No Growth after 120 hours 10/15/18 03:04 Blood Culture - Preliminary Blood No Growth after 120 hours 10/15/18 14:12 Anaerobic Culture - Final Chest
--- NOTE | 2018-10-20 09:49 | XR ---
EXAMINATION TYPE: XR chest 1V portable DATE OF EXAM: 10/20/2018 COMPARISON: 10/19/2018 INDICATION: Postoperative sternal reconstruction TECHNIQUE: Single frontal view of the chest is obtained. FINDINGS: The heart size is mildly prominent. The pulmonary vasculature is normal. There is a left lower lobe infiltrate. Correlate for atelectasis. Small residual fluid may be present . Some mild plate atelectasis may be at the right base. Sternotomy wires are evident. EKG leads overlie the chest IMPRESSION: 1. Left basilar infiltrate. Small left pleural effusion is not excluded. 2. Minimal plate like atelectasis right base.
[2018-10-20 10:09] LABS: Anion Gap 8 mmol/L; Blood Urea Nitrogen 20 mg/dL (9-20); Calcium 8.7 mg/dL (8.4-10.2); Carbon Dioxide 28 mmol/L (22-30); Chloride 103 mmol/L (98-107); Glucose 105 mg/dL (74-99); Potassium 4.2 mmol/L (3.5-5.1); Sodium 139 mmol/L (137-145)
--- NOTE | 2018-10-20 10:16 | P.PN ---
Subjective Progress Note Date: 10/20/18 Principal diagnosis: Mechanical destruction of the sternum, status post aortic valve replacement and coronary artery bypass grafting on 09/24/18. History of bicuspid aortic valve wi th moderate to severe aortic valve stenosis, status post aortic valve replacement with a 27 mm magna ease pericardial bioprosthesis, coronary artery disease with left main disease status post triple vessel coronary artery bypass grafting surgery, chronic diastolic dysfunction, hypertension, hyperlipidemia, morbid obesity, previous tobacco dependence, postoperative atrial flutter with rapid ventricular response and mild COPD with FEV1 64% of predicted. POD #5 drainage of wound hematoma and reconstruction of the sternum using Tritium plating system. Postoperative acute blood loss anemia, an unexpected but potential outcome. The patient is currently sitting up to the bedside chair. He is in no acute distress. Currently he denies any complaints of pain or shortness of breath. He reports that he has been ambulating in the hallway at least 3-4 times yesterday with minimal assistance. He remains with his heart hugger and surgical support bra in place, and he is demonstrating appropriate use of his heart hugger. He denies any clicking or pain to his sternal area. He remains afebrile and hemodynamically stable. Remote telemetry showing normal sinus rhythm heart rate 79. Objective - Vital Signs Vital signs: Vital Signs Temp 96.4 F L 10/20/18 08:26 Pulse 74 10/20/18 09:17 Resp 18 10/20/18 08:26 BP 122/61 10/20/18 08:26 Pulse Ox 95 10/20/18 08:26 Intake & Output 10/19/18 10/20/18 10/20/18 18:59 06:59 18:59 Intake Total 380 Output Total 500 350 600 Balance -120 -350 -600 Weight 119.2 kg Intake: IV 140 KVO 40 Piperacillin-Tazobactam 3 100 .375 gm In Sodium Chloride 0.9% 100 ml @ 25 mls/hr IVPB Q8HR [facility] Rx# :[id number] Oral 240 Output: Urine 500 350 600 Other: Voiding Method Urinal Urinal Urinal # Voids 1 ABP, PAP, CO, CI - Last Documented Arterial Blood Pressure 126/58 - Constitutional General appearance: Present: cooperative, morbidly obese, no acute distress - Respiratory Details: Lung sounds are essentially clear throughout, diminished to his bilateral bases. Respirations are symmetrical and nonlabored. Oxygen saturation are 95% on room air. He is achieving 1000 mL on his incentive spirometry with encouragement. - Cardiovascular Details: Regular rhythm and rate. S1 and S2 present, negative for S3, gallop or murmur. Sternum is stable. Remote telemetry showing normal sinus rhythm heart rate 79. Heart hugger in surgical support bra in place, demonstrating appropriate use of his heart hugger. Knee-high SUZIE hose and compression devices in place to his bilateral lower extremities. +1 edema to his bilateral lower extremities. Prevena VAC dressing remains in place to his sternal incision. - Gastrointestinal Gastrointestinal Comment(s): Abdomen is soft, nontender and nondistended. Active bowel sounds to all 4 abdominal quadrants. Tolerating oral intake. Passing flatus. No guarding or rigidity. Obese. - Genitourinary Genitourinary Comment(s): Voiding clear yellow urine. - Integumentary Integumentary Comment(s): Skin is warm and dry. No clubbing or cyanosis is present. Midline sternal incision with Prevena VAC dressing in place, clean and intact. Right lower extremity EVH site clean, dry and approximated. - Neurologic Neurologic: Present: CNII-XII intact - Musculoskeletal Musculoskeletal: Present: gait normal, generalized weakness, strength equal bilaterally - Psychiatric Psychiatric: Present: A&O x's 3, appropriate affect, intact judgment & insight - Allied health notes Allied health notes reviewed: nursing - Labs CBC & Chem 7: 10/20/18 09:21 10/20/18 09:21 Labs: Abnormal Lab Results - Last 24 Hours (Table) 10/19/18 10/19/18 10/19/18 Range/Units 12:09 16:22 20:30 RBC (4.30-5.90) m/uL Hgb (13.0-17.5) gm/dL Hct (39.0-53.0) % MCHC (31.0-37.0) g/dL RDW (11.5-15.5) % POC Glucose (mg/dL) 162 H 254 H 168 H (75-99) mg/dL 10/20/18 10/20/18 Range/Units 06:15 09:21 RBC 3.41 L (4.30-5.90) m/uL Hgb 9.4 L (13.0-17.5) gm/dL Hct 31.3 L (39.0-53.0) % MCHC 30.1 L (31.0-37.0) g/dL RDW 16.6 H (11.5-15.5) % POC Glucose (mg/dL) 105 H (75-99) mg/dL Microbiology - Last 24 Hours (Table) 10/15/18 03:04 Blood Culture - Preliminary Blood No Growth after 120 hours 10/15/18 03:04 Blood Culture - Preliminary Blood No Growth after 120 hours 10/15/18 14:12 Anaerobic Culture - Final Chest - Imaging and Cardiology Chest x-ray: report reviewed, image reviewed Assessment and Plan Assessment: 1. Mechanical destruction of the sternum, status post reconstruction using Tritium plating system with placement of mediastinal chest tube for drainage of wound hematoma. 2. Status post aortic valve replacement on 09/24/2018. 3. Status post aortocoronary bypass grafting surgery 3 vessels on 09/24/2018. 4. History of bicuspid aortic valve with moderate to severe aortic valve stenosis. 5. History of coronary artery disease, with left main disease. 6. Anemia of chronic disease. 7. Hypertension, 8. Hyperlipidemia. 9. Chronic obstructive pulmonary disease with an FEV1 of 64% of predicted. 10. Morbid obesity. 11. Postoperative atrial flutter, currently normal sinus rhythm. 12. Chronic diastolic dysfunction. 13. Tobacco dependence in remission. 14. Postoperative acute blood loss anemia, status post transfusion of 1 unit packed red blood cells. Plan: 1. Continue aspirin, statin, KIKA inhibitor, and beta misbah. 2. Continue amiodarone 200 mg by mouth twice a day for atrial fibrillation/atrial flutter prophylaxis. 3. Encourage use of his incentive spirometry every hour while awake. 4. Increase activity as tolerated. PT/OT following. 5. Monitor daily labs and x-rays. Replace electrolytes per protocol. 6. Steroids, bronchodilators per pulmonology. Currently on prednisone 30 mg by mouth daily. 7. Maintain Prevena VAC dressing in place. 8. GI prophylaxis with Protonix, DVT prophylaxis with subcu heparin, SCDs. 9. Pain control per current medication regimen. 10. Medical management of other comorbid conditions per primary, cardiology, pulmonology. 11. Lasix 20 mg IV twice a day today. 13. May be discharged to extended care facility/inpatient rehab for further rehabilitation needs per the cardiothoracic surgery standpoint. 14. Reinforced with the patient the importance of using his heart hugger and wearing his surgical support bra and protecting his sternum. Reiterated the importance of lifting restrictions, no more than 5 pounds lifting, pushing or pulling for 12 full weeks. 15. 15. More recommendations to follow based on patient's clinical course. Time with Patient: Greater than 30
--- NOTE | 2018-10-20 11:18 | P.PN ---
Subjective Progress Note Date: 10/20/18 Principal diagnosis: Status post reconstruction of sternotomy. This is a 67-year-old gentleman who follows with Dr. Don as his primary care physician. He has a past medical history of hypertension, hyperlipidemia, morbid obesity, previous tobacco dependence, chronic obstructive pulmonary disease with FEV1 value 64% of predicted. He was also recently found to have significant coronary artery disease and on 09/24/2018 that he had undergone a artery bypass surgery He had done well and was subsequently discharged on 09/30/2018.. He re presented here on 10/08/2018 WITH increased shortness of breath and atrial fibrillation with a rapid ventricular response and was treated for acute hypoxic respiratory failure and rate control with amiodarone. He was again discharged to an extended care facility on 10/11/2018. He remains presented here yesterday after developing oozing from his sternal wound. Computed tomography scan of the chest revealed fluid collection subcutaneous tissues extending to the sternotomy line inferiorly into the anterior mediastinum. Suspected abscess versus hemorrhage. There was a diastases of the sternotomy line. Moderate pericardial effusion and a small left pleural effusion. Today he had undergone a sternal reconstruction with plating and removal of the sternal wires by Dr. Enriquez. He is seen in consultation today in the intensive care unit postoperatively. He is intubated and on the mechanical ventilator. Current settings are assist control 12, tidal volume 600, FiO2 50% and a PEEP of 5. Arterial blood gases reveal pO2 of 80, pCO2 of 52 and a pH of 7.45. Chest x-ray shows bilateral atelectasis. He currently has a D5 and half- normal saline at 70 ML's per hour. He's been initiated on Kefzol for 2 doses. He is on heparin subcutaneous for DVT prophylaxis and DuoNeb inhalations every 4 hours. Preop labs revealed a WBC 9.8. Hemoglobin 8.5. Platelet count 407,000. Creatinine 0.84. He'll remain sedated with propofol throughout the evening. Patient was reevaluated today on 10/16/2018, remains on mechanical ventilations, his FiO2 is down to 40%, tidal volume remains at 600, assist control rate is 14. PEEP is at 5. Patient is sedated, presently receiving a unit of packed RBCs for low hemoglobin of 6.5. Patient is on propofol which I will discontinue once the blood is given, and I plan to address weaning and possibly extubation this morning. ABG on 50% FiO2 showed a pO2 of 120 pCO2 of 49 pH of 7.47. Elec trolytes are normal renal profile is normal bicarb is 35. CBC showed a hemoglobin of 6.5 WBC count 6.4. Chest x-ray showed worsening small left pleural effusion, and by basilar atelectasis or possible aspirated disease, hence I have recommended empiric Zosyn to be started. Patient was reevaluated today on 10/17/2018, he was extubated yesterday uneventfully, he is presently on few liters nasal cannula, O2 saturation is in the mid 90s. Patient is not in any form of respiratory distress. His chest x- ray showed left basilar atelectasis and possibly pleural effusion, ultrasound of the chest showed small pleural effusion, and I did not feel that it is safe to perform thoracentesis. In the meantime the patient will remain on bronchodilators, oral steroids, and diuretics. WBC count is 7.6 hemoglobin is 7.3. Electrolytes are normal. Patient is asymptomatic, compliant with incentive spirometry, and using his heart hugger when coughing. Patient was reevaluated today on 2018, patient is doing fairly well.he is now postoperative day #3 status post drainage of wound hematoma and rec onstruction of sternum using tritium plating system. Patient denies any specific complaints, he is on couple of liters nasal cannula, saturating well. Chest x-ray is showing left lower lobe atelectasis, minimal left pleural effusion, underlying infiltrate is not entirely ruled out but felt to be less likely.hemoglobin is 7.4 electrolytes and basic metabolic profile are normal. Patient was reevaluated today on 10/19/2018, patient is doing well, sitting in bed, relatively asymptomatic, denies any shortness of breath, no cough, no wheezing. Patient is hemodynamically stable, and he is presently an overflow from telemetry/selective. Patient is achieving 1000 ML in his incentive spirometry. Chest x-ray was reviewed and all his labs were reviewed. The patient was seen today 10/20/2018 in follow-up on the selective care unit. He is currently awake and alert in no acute distress. He's been up ambulating in the room. He denies any worsening shortness of breath, cough or congestion. He is working well with the incentive spirometer. Chest x-ray continues to show left basilar infiltrate with small left pleural effusion. Some minimal platelike atelectasis in the right lung base. He is maintaining good O2 saturations in the mid 90s on room air. He's been afebrile. Hemodynamically stable. Blood and wound cultures were negative. White count 8.8. Hemoglobin 9.4. Creatinine 0.67. Objective - Vital Signs Vital signs: Vital Signs Temp 96.4 F L 10/20/18 08:26 Pulse 74 10/20/18 09:17 Resp 18 10/20/18 08:26 BP 122/61 10/20/18 08:26 Pulse Ox 95 10/20/18 08:26 Intake & Output 10/19/18 10/20/18 10/20/18 18:59 06:59 18:59 Intake Total 380 Output Total 500 350 600 Balance -120 -350 -600 Weight 119.2 kg Intake: IV 140 KVO 40 Piperacillin-Tazobactam 3 100 .375 gm In Sodium Chloride 0.9% 100 ml @ 25 mls/hr IVPB Q8HR [facility] Rx# :[id number] Oral 240 Output: Urine 500 350 600 Other: Voiding Method Urinal Urinal Urinal # Voids 1 ABP, PAP, CO, CI - Last Documented Arterial Blood Pressure 126/58 - Exam GENERAL EXAM: Alert, active, comfortable in no apparent distress. On room air. HEAD: Normocephalic. EYES: Normal reaction of pupils, equal size. NOSE: Clear with pink turbinates. THROAT: No erythema or exudates. NECK: No masses, no JVD. CHEST: Heart hugger in place. LUNGS: Equal air entry with a cousin the left lung base. CVS: S1 and S2 normal with no audible murmur, regular rhythm. ABDOMEN: No hepatosplenomegaly, normal bowel sounds, no guarding or rigidity. SPINE: No scoliosis or deformity SKIN: No rashes CENTRAL NERVOUS SYSTEM: No focal deficits, tone is normal in all 4 extremities. EXTREMITIES: There is no peripheral edema. No clubbing, no cyanosis. Pe ripheral pulses are intact. - Labs CBC & Chem 7: 10/20/18 09:21 10/20/18 09:21 Labs: Abnormal Lab Results - Last 24 Hours (Table) 10/19/18 10/19/1810/19/19 Range/Units 12:09 16:22 20:30 RBC (4.30-5.90) m/uL Hgb (13.0-17.5) gm/dL Hct (39.0-53.0) % MCHC (31.0-37.0) g/dL RDW (11.5-15.5) % Glucose (74-99) mg/dL POC Glucose (mg/dL) 162 H 254 H 168 H (75-99) mg/dL 10/20/18 10/20/18 10/20/18 Range/Units 06:15 09:21 09:21 RBC 3.41 L (4.30-5.90) m/uL Hgb 9.4 L (13.0-17.5) gm/dL Hct 31.3 L (39.0-53.0) % MCHC 30.1 L (31.0-37.0) g/dL RDW 16.6 H (11.5-15.5) % Glucose 105 H (74-99) mg/dL POC Glucose (mg/dL) 105 H (75-99) mg/dL Microbiology - Last 24 Hours (Table) 10/15/18 03:04 Blood Culture - Preliminary Blood No Growth after 120 hours 10/15/18 03:04 Blood Culture - Preliminary Blood No Growth after 120 hours 10/15/18 14:12 Anaerobic Culture - Final Chest Assessment and Plan Assessment: Impression: #1 Mechanical destruction of the sternum. He is status post sternal reconstruction with Tritium plating and removal of sternal wires. Postoperative day #5. #2 Mechanical ventilation support required postoperatively as an expected outcome of surgery. Recovered. #3 Recent coronary artery bypass grafting and valve replacement on 09/24/2018 including a SNELL to the LAD, reverse saphenous vein graft to the first diagonal artery, reverse saphenous vein graft to the obtuse marginal artery and an elective aortic valve replacement utilizing a #27 mm paracardial bioprosthesis magna ease valve. Discharged to ECF on 09/30/2089 #4 Readmission following surgery for acute hypoxic respiratory failure and atrial flutter with rapid ventricular response. Discharged to ECF on 10/11/2018. #5 morbid obesity. #6 Chronic obstructive pulmonary disease with baseline FEV1 value 64% of predicted. #7 Hypertension. #8 Hyperlipidemia. #9 Diabetes mellitus. Plan: The patient was seen and evaluated by Dr. Holland. The patient is doing very well from the pulmonary standpoint. On room air. The plan is for discharge to [facility] for further inpatient rehabilitation. We'll continue to follow and make further recommendations based on his clinical status. I, the cosigning physician, performed a history & physical examination of the patient. Lungs sounds with few scattered rhonchi, crackles in the posterior bases. Maintaining good O2 saturations in the 90s on room air. I discussed the assessment and plan of care with my nurse practitioner, Christine Betancourt. I attest to the above progress note as dictated by her.
[2018-10-20] MEDS: LISINOPRIL 2.5 MG TAB PO SCH (11:19)
[2018-10-20 11:40] LABS: Glucose,Whole Blood 109 mg/dL (75-99)
[2018-10-20 16:54] LABS: Glucose,Whole Blood 182 mg/dL (75-99)
--- NOTE | 2018-10-20 17:04 | P.PN ---
Subjective this is a pleasant 68 years old male status post recent aortic valve replacement for bicuspid aortic valve with coronary artery bypass surgery. Admitted for bleeding from lower sternotomy site, hematoma was evacuated also hemopericardium was evacuated as well.patient remains in the ICU, he resting comfortably not in distress. He denies chest pain. No abdominal pain. No change in urine or bowel habits. No feverrest of Vitas looks stable.hemoglobin 7.3.creatinine 0.8. Sugar controlled. Patient is being followed by several consultants including pulmonary critical care, cardiology and cardiothoracic surgery, infectious disease team. 10/18/2018 Patient is a stable with no chest pain or dyspnea. He is fully awake and oriented. Vitals stable. Hemoglobin 7.4, electrolytes and kidney function within normal levels. Sugar is controlled. Repeat chest x-ray: Possible CHF exacerbation as there is cardiomegaly with central vascular congestion as per radiologist's report. Patient remains on amiodarone, Zosyn and prednisone 30 mg. He is also on tramadol. I discussed the case with vascular surgery today and patient is stable from perspective to be transferred. Patient has been followed by several consultants including pulmonary and critical care team as well as infectious disease team. 10/19/2018 Patient remains in the ICU, his abdominal pain is controlled. He is doing well with no chest pain or dyspnea. patient was started on Colace and senna for constipation. his blood pressure on the low normal side. No dizziness or syncope 10/20/2018 Estimated in bed comfortable not in distress denying chest pain or dyspnea. His been followed by a mini consultants including pulmonary and cardiology team and cardiovascular surgery. Remains on medication including metoprolol, aspirin, lisinopril. Also has taken antibiotics form of Zosyn Objective - Vital Signs Vital signs: Vital Signs Temp 96.4 F L 10/20/18 11:45 Pulse 72 10/20/18 16:49 Resp 16 10/20/18 16:40 BP 107/58 10/20/18 11:45 Pulse Ox 92 L 10/20/18 11:45 Intake & Output 10/19/18 10/20/18 10/20/18 18:59 06:59 18:59 Intake Total 380 Output Total 500 350 600 Balance -120 -350 -600 Weight 119.2 kg Intake: IV 140 KVO 40 Piperacillin-Tazobactam 3 100 .375 gm In Sodium Chloride 0.9% 100 ml @ 25 mls/hr IVPB Q8HR [facility] Rx# :[id number] Oral 240 Output: Urine 500 350 600 Other: Voiding Method Urinal Urinal Urinal # Voids 1 ABP, PAP, CO, CI - Last Documented Arterial Blood Pressure 126/58 - Exam GENERAL: The patient is alert and oriented x3, not in any acute distress. Well developed, well nourished. HEENT: Pupils are round and equally reacting to light. EOMI. No scleral icterus. No conjunctival pallor. Normocephalic, atraumatic. No pharyngeal erythema. No thyromegaly. CARDIOVASCULAR: S1 and S2 present. No murmurs, rubs, or gallops. -PULMONARY: Chest is clear to auscultation, no wheezing or crackles. sternotomy wound is closed and dressing is placed, Further examination is deferred to the surgical team ABDOMEN: Soft, nontender, nondistended, normoactive bowel sounds. No palpable organomegaly. MUSCULOSKELETAL: No joint swelling or deformity. EXTREMITIES: No cyanosis, clubbing, or pedal edema. NEUROLOGICAL: Gross neurological examination did not reveal any focal deficits. SKIN: No rashes. - Labs CBC & Chem 7: 10/20/18 09:21 10/20/18 09:21 Labs: Abnormal Lab Results - Last 24 Hours (Table) 10/19/18 10/20/18 10/20/18 Range/Units 20:30 06:15 09:21 RBC 3.41 L (4.30-5.90) m/uL Hgb 9.4 L (13.0-17.5) gm/dL Hct 31.3 L (39.0-53.0) % MCHC 30.1 L (31.0-37.0) g/dL RDW 16.6 H (11.5-15.5) % Glucose (74-99) mg/dL POC Glucose (mg/dL) 168 H 105 H (75-99) mg/dL 10/20/18 10/20/18 10/20/18 Range/Units 09:21 11:14 16:52 RBC (4.30-5.90) m/uL Hgb (13.0-17.5) gm/dL Hct (39.0-53.0) % MCHC (31.0-37.0) g/dL RDW (11.5-15.5) % Glucose 105 H (74-99) mg/dL POC Glucose (mg/dL) 109 H 182 H (75-99) mg/dL Microbiology - Last 24 Hours (Table) 10/15/18 03:04 Blood Culture - Preliminary Blood No Growth after 120 hours 10/15/18 03:04 Blood Culture - Preliminary Blood No Growth after 120 hours 10/15/18 14:12 Anaerobic Culture - Final Chest Assessment and Plan Assessment: hematoma at the surgical site of previous CABG surgery, status post surgical evacuation. Recent history of aortic valve replacement for bicuspid aortic valve and CABG morbid obesity Hypertension Diabetes mellitus recent cigarette smoker hyperlipidemia Plan: this is a pleasant 68 years old male who presents because of hematoma at the surgical site of sternotomy for his CABG and valve replacement.patient remains in the ICU.continue with the current medical treatment including a breathing treatment, KIKA inhibitor, beta misbah,steroids and pain management. Continue with the current antibiotics as per infectious disease will follow and case.Labs and medication were reviewed.. Continue same treatment. Continue with symptomatic treatment. Resume home medication. Monitor lytes and vitals. DVT and GI prophylaxis. Further recommendations of the clinical course of the patient DVT prophylaxis: Subcutaneous heparin GI Prophylaxis: Ppi Prognosis is guarded
[2018-10-20] MEDS: ATORVASTATIN 20 MG TAB PO SCH (20:54)
[2018-10-20 21:09] LABS: Glucose,Whole Blood 174 mg/dL (75-99)
[2018-10-21 06:26] LABS: Glucose,Whole Blood 120 mg/dL (75-99)
[2018-10-21] MEDS: INSULIN ASPART (NovoLOG) 100 UNIT/ML VIAL SQ SCH ×4 (06:37→20:03)
[2018-10-21] MEDS: PANTOPRAZOLE 40 MG TABLET PO SCH (06:39)
[2018-10-21 07:10] LABS: Anisocytosis Slight; HGB 9.1 gm/dL (13.0-17.5); Hypochromasia Marked; MCH 27.1 pg (25.0-35.0); MCHC 29.3 g/dL (31.0-37.0); MCV 92.3 fL (80.0-100.0); Platelet Count 368 k/uL (150-450); Poikilocytosis Moderate; RBC 3.35 m/uL (4.30-5.90); RDW 16.6 % (11.5-15.5); WBC 9.5 k/uL (3.8-10.6)
[2018-10-21 07:28] LABS: Anion Gap 8 mmol/L; Blood Urea Nitrogen 19 mg/dL (9-20); Calcium 8.6 mg/dL (8.4-10.2); Carbon Dioxide 29 mmol/L (22-30); Chloride 102 mmol/L (98-107); Glucose 107 mg/dL (74-99); Potassium 3.9 mmol/L (3.5-5.1); Sodium 139 mmol/L (137-145)
--- NOTE | 2018-10-21 07:59 | XR ---
EXAMINATION TYPE: XR chest 2V DATE OF EXAM: 10/21/2018 COMPARISON: Prior chest x-ray dated 10/20/2018 HISTORY: Postop sternal reconstruction TECHNIQUE: Frontal and lateral views of the chest are obtained. FINDINGS: Postop changes are noted to the sternum. Bibasilar density persists, there is no pneumotho rax. Patient is rotated and there are overlying cardiac leads. Heart size is stable. Pulmonary vascul arity and mendy not significant changed. Patient is post cardiac valve replacement, atrial appendage c lipping. IMPRESSION: Probable basilar atelectasis, possible small effusions. Postop changes.
[2018-10-21 08:37] LABS: Glucose,Whole Blood 164 mg/dL (75-99)
[2018-10-21] MEDS ORDERED: FUROSEMIDE 10 MG/ML 4 ML VIAL IV STA (09:10)
[2018-10-21] MEDS: IPRATROPIUM-ALBUTEROL 3 ML NEB INHALATION SCH ×3 (09:13→15:36)
[2018-10-21] MEDS ORDERED: METOPROLOL TARTRATE 25 MG TAB PO STA (09:14)
[2018-10-21] MEDS: AMIODARONE 200 MG TAB PO SCH ×2 (09:55→20:03)
[2018-10-21] MEDS: ASPIRIN 81 MG PO SCH (09:55)
[2018-10-21] MEDS: predniSONE 10 MG TAB PO SCH (09:56)
[2018-10-21] MEDS: HEPARIN SODIUM,PORCINE 5,000 UNIT/ML 1 ML VIAL SQ SCH ×3 (09:56→22:28)
[2018-10-21] MEDS: DOCUSATE 100 MG CAP PO SCH ×2 (09:56→20:03)
[2018-10-21] MEDS: PIPERACILLIN-TAZOBACTAM 3.375 GM in SODIUM CHLORIDE 0.9% 100 ML IVPB SCH ×3 (09:57→22:28)
[2018-10-21] MEDS: SENNOSIDES 8.6 MG TAB PO SCH (10:11)
[2018-10-21] MEDS: METOPROLOL TARTRATE 50 MG TAB PO SCH ×2 (10:12→20:03)
[2018-10-21 11:20] LABS: Glucose,Whole Blood 115 mg/dL (75-99)
--- NOTE | 2018-10-21 12:14 | P.PN ---
Subjective Progress Note Date: 10/21/18 Principal diagnosis: Mechanical destruction of the sternum, status post aortic valve replacement and coronary artery bypass grafting on 09/24/18. History of bicuspid aortic valve wi th moderate to severe aortic valve stenosis, status post aortic valve replacement with a 27 mm magna ease pericardial bioprosthesis, coronary artery disease with left main disease status post triple vessel coronary artery bypass grafting surgery, chronic diastolic dysfunction, hypertension, hyperlipidemia, morbid obesity, previous tobacco dependence, postoperative atrial flutter with rapid ventricular response and mild COPD with FEV1 64% of predicted. POD #6 drainage of wound hematoma and reconstruction of the sternum using Tritium plating system. Postoperative acute blood loss anemia, an unexpected but potential outcome. The patient is currently sitting up to the bedside chair. He is in no acute distress. He is tolerating oral intake. He denies any complaints of pain or shortness of breath. The patient reports she has been ambulating in the 3 self cardiac stepdown unit hallway with minimal assistance. He feels he is ready to be discharged to an extended care facility for further rehabilitation needs. He remains on room air with oxygen saturations 93% and he is achieving 1250 mL on his incentive spirometry. He denies any clicking or movement in his sternum. His sternal incision remains with the Prevena VAC dressing which is clean, dry and in intact. Objective - Vital Signs Vital signs: Vital Signs Temp 98.1 F 10/21/18 10:12 Pulse 87 10/21/18 10:12 Resp 18 10/21/18 10:12 BP 125/62 10/21/18 10:12 Pulse Ox 99 10/21/18 10:12 Intake & Output 10/20/18 10/21/18 10/21/18 18:59 06:59 18:59 Intake Total 436 100 0 Output Total 1200 Balance -764 100 0 Weight 118.9 kg Intake: IV 200 100 Piperacillin-Tazobactam 3 200 100 .375 gm In Sodium Chloride 0.9% 100 ml @ 25 mls/hr IVPB Q8HR [facility] Rx# :[id number] Oral 236 0 Output: Urine 1200 Other: Voiding Method Urinal Urinal Urinal # Voids 1 ABP, PAP, CO, CI - Last Documented Arterial Blood Pressure 126/58 - Constitutional General appearance: Present: cooperative, morbidly obese, no acute distress - Respiratory Details: Lungs sounds essentially clear to his bilateral upper lobes, diminished to his bilateral bases left greater than right. Respirations are symmetrical and nonlabored. Oxygen saturation are 93% on room air. He is achieving 1250 mL on his incentive spirometry. - Cardiovascular Details: Regular rhythm and rate. S1 and S2 present, negative for S3, gallop or murmur. Remote telemetry showing normal sinus rhythm heart rate 96. +1 edema to his bilateral lower extremities. Heart hugger and surgical support bra in place. Demonstrating appropriate use to his heart hugger. Sternum is stable. Sequential compression devices and knee-high SUZIE hose in place to his bilateral lower extremities. - Gastrointestinal Gastrointestinal Comment(s): Abdomen is soft, nontender and nondistended. Hypoactive bowel sounds to all 4 abdominal quadrants. Tolerating oral intake. Passing flatus. No bowel movement since his sternal reconstruction surgery. - Genitourinary Genitourinary Comment(s): Voiding clear yellow urine. - Integumentary Integumentary Comment(s): Skin is warm and dry. No clubbing or cyanosis present. No rash or abnormal pigmentation is present. Midline sternal incision with Prevena VAC dressing clean, dry and intact. - Neurologic Neurologic: Present: CNII-XII intact - Musculoskeletal Musculoskeletal: Present: gait normal, generalized weakness, strength equal bilaterally - Psychiatric Psychiatric: Present: A&O x's 3, appropriate affect, intact judgment & insight - Allied health notes Allied health notes reviewed: nursing - Labs CBC & Chem 7: 10/21/18 06:23 10/21/18 06:23 Labs: Abnormal Lab Results - Last 24 Hours (Table) 10/14/18 10/16/18 10/20/18 Range/Units 13:20 05:07 11:14 RBC (4.30-5.90) m/uL Hgb (13.0-17.5) gm/dL Hct (39.0-53.0) % MCHC (31.0-37.0) g/dL RDW (11.5-15.5) % Glucose (74-99) mg/dL POC Glucose (mg/dL) 164 H 109 H (75-99) mg/dL Crossmatch See Detail 10/20/18 10/20/18 10/21/18 Range/Units 16:52 21:08 06:23 RBC 3.35 L (4.30-5.90) m/uL Hgb 9.1 L (13.0-17.5) gm/dL Hct 31.0 L (39.0-53.0) % MCHC 29.3 L (31.0-37.0) g/dL RDW 16.6 H (11.5-15.5) % Glucose (74-99) mg/dL POC Glucose (mg/dL) 182 H 174 H (75-99) mg/dL Crossmatch 10/21/18 10/21/18 Range/Units 06:23 06:24 RBC (4.30-5.90) m/uL Hgb (13.0-17.5) gm/dL Hct (39.0-53.0) % MCHC (31.0-37.0) g/dL RDW (11.5-15.5) % Glucose 107 H (74-99) mg/dL POC Glucose (mg/dL) 120 H (75-99) mg/dL Crossmatch Microbiology - Last 24 Hours (Table) 10/15/18 03:04 Blood Culture - Final Blood No Growth after 144 hours 10/15/18 03:04 Blood Culture - Final Blood No Growth after 144 hours - Imaging and Cardiology Chest x-ray: report reviewed, image reviewed Assessment and Plan Assessment: 1. Mechanical destruction of the sternum, status post reconstruction using T ritium plating system with placement of mediastinal chest tube for drainage of wound hematoma. 2. Status post aortic valve replacement on 09/24/2018. 3. Status post aortocoronary bypass grafting surgery 3 vessels on 09/24/2018. 4. History of bicuspid aortic valve with moderate to severe aortic valve stenosis. 5. History of coronary artery disease, with left main disease. 6. Anemia of chronic disease. 7. Hypertension, 8. Hyperlipidemia. 9. Chronic obstructive pulmonary disease with an FEV1 of 64% of predicted. 10. Morbid obesity. 11. Postoperative atrial flutter, currently normal sinus rhythm. 12. Chronic diastolic dysfunction. 13. Tobacco dependence in remission. 14. Postoperative acute blood loss anemia, status post transfusion of 1 unit packed red blood cells. Plan: 1. Continue aspirin, statin, KIKA inhibitor, and beta misbah. We will increase his metoprolol tartrate 75 mg by mouth twice a day 2. Continue amiodarone 200 mg by mouth twice a day for atrial fibrillation/atrial flutter prophylaxis. 3. Encourage use of his incentive spirometry every hour while awake. 4. Increase activity as tolerated. PT/OT following. 5. Monitor daily labs and x-rays. Replace electrolytes per protocol. 6. Steroids, bronchodilators per pulmonology. Currently on prednisone 30 mg by mouth daily. 7. Maintain Prevena VAC dressing in place. If patient goes to subacute rehab today we will discontinue the VAC dressing. 8. GI prophylaxis with Protonix, DVT prophylaxis with subcu heparin, SCDs. 9. Pain control per current medication regimen. 10. Medical management of other comorbid conditions per primary, cardiology, pulmonology. 11. Lasix 40 mg IV x 1 today. 13. May be discharged to extended care facility/inpatient rehab for further rehabilitation needs per the cardiothoracic surgery standpoint. 14. Continue to reinforced with the patient the importance of using his heart hugger and wearing his surgical support bra and protecting his sternum. Reiterated the importance of lifting restrictions, no more than 5 pounds lifting, pushing or pulling for 12 full weeks. 15. More recommendations to follow based on patient's clinical course. Time with Patient: Greater than 30
[2018-10-21] MEDS: LISINOPRIL 2.5 MG TAB PO SCH (12:33)
[2018-10-21 13:17] VITALS: BMI 39.8
--- NOTE | 2018-10-21 14:12 | P.PN ---
Subjective Progress Note Date: 10/21/18 The patient is a 68-year-old male with a history of recent coronary artery bypass grafting with a AVR, who underwent redo sternotomy due to fluid collection. Patient is sitting up in a recliner appears to be comfortable. He states his appetite has been good. No change in his lower extremity edema which is chronic. Patient denies any dizziness, lightheadedness, or fatigue. He also denies any chest pain or discomfort. Blood pressure 120/80 with a heart rate in the 70s to 80s, 93% on room air, afebrile. White blood cell count 9.5, hemoglobin 9.1, platelet count 368. Sodium 139, potassium 3.9, BUN 19 and creatinine 0.7. Objective - Vital Signs Vital signs: Vital Signs Temp 98.0 F 10/21/18 11:41 Pulse 72 10/21/18 12:52 Resp 18 10/21/18 11:41 BP 121/81 10/21/18 11:41 Pulse Ox 93 L 10/21/18 11:41 Intake & Output 10/20/18 10/21/18 10/21/18 18:59 06:59 18:59 Intake Total 436 100 0 Output Total 1200 350 Balance -764 100 -350 Weight 118.9 kg 118.9 kg Intake: IV 200 100 Piperacillin-Tazobactam 3 200 100 .375 gm In Sodium Chloride 0.9% 100 ml @ 25 mls/hr IVPB Q8HR [facility] Rx# :[id number] Oral 236 0 Output: Urine 1200 350 Other: Voiding Method Urinal Urinal Urinal # Voids 1 ABP, PAP, CO, CI - Last Documented Arterial Blood Pressure 126/58 - Exam EXAMINATION: Gen: This is a 68-year-old morbidly obese male. He is sitting in a recliner appears to be comfortable in no acute distress. HEENT: Head is atraumatic, normocephalic. Pupils equal, round. Sclerae is anicteric. NECK: Supple. No JVD. LUNGS: Clear to auscultation. No wheezes or rhonchi. No intercostal retractions. HEART: Regular rate and rhythm. Systolic murmur. ABDOMEN: Soft. Bowel sounds are present. No masses. No tenderness. EXTREMITIES: No pedal edema. No calf tenderness. NEUROLOGICAL: Patient is awake, alert and oriented x3. Cranial nerves 2 through 12 are grossly intact. - Labs CBC & Chem 7: 10/21/18 06:23 10/21/18 06:23 Labs: Abnormal Lab Results - Last 24 Hours (Table) 10/14/18 10/16/18 10/20/18 Range/Units 13:20 05:07 16:52 RBC (4.30-5.90) m/uL Hgb (13.0-17.5) gm/dL Hct (39.0-53.0) % MCHC (31.0-37.0) g/dL RDW (11.5-15.5) % Glucose (74-99) mg/dL POC Glucose (mg/dL) 164 H 182 H (75-99) mg/dL Crossmatch See Detail 10/20/18 10/21/18 10/21/18 Range/Units 21:08 06:23 06:23 RBC 3.35 L (4.30-5.90) m/uL Hgb 9.1 L (13.0-17.5) gm/dL Hct 31.0 L (39.0-53.0) % MCHC 29.3 L (31.0-37.0) g/dL RDW 16.6 H (11.5-15.5) % Glucose 107 H (74-99) mg/dL POC Glucose (mg/dL) 174 H (75-99) mg/dL Crossmatch 10/21/18 10/21/18 Range/Units 06:24 11:16 RBC (4.30-5.90) m/uL Hgb (13.0-17.5) gm/dL Hct (39.0-53.0) % MCHC (31.0-37.0) g/dL RDW (11.5-15.5) % Glucose (74-99) mg/dL POC Glucose (mg/dL) 120 H 115 H (75-99) mg/dL Crossmatch Microbiology - Last 24 Hours (Table) 10/15/18 03:04 Blood Culture - Final Blood No Growth after 144 hours 10/15/18 03:04 Blood Culture - Final Blood No Growth after 144 hours Assessment and Plan Plan: IMPRESSION / ASSESSMENT: #1 Status post redo sternotomy #2 status post CABG and aortic valve replacement #3 paroxysmal Atrial flutter, currently in sinus rhythm #4 history of COPD #5 hypertension Plan Cardiology's perspective, we'll recommend to continue the patient on his current medications. Discharge to rehab once cleared by the cardiothoracic surgery. DNP note has been reviewed, I agree with a documented findings and plan of care. Patient was seen and examined.
--- NOTE | 2018-10-21 15:29 | P.PN ---
Subjective Progress Note Date: 10/21/18 Principal diagnosis: mechanical distraction of the sternum, status post aortic valve replacement and coronary artery bypass This is a 67-year-old gentleman who follows with Dr. Don as his primary care physician. He has a past medical history of hypertension, hyperlipidemia, m orbid obesity, previous tobacco dependence, chronic obstructive pulmonary disease with FEV1 value 64% of predicted. He was also recently found to have significant coronary artery disease and on 09/24/2018 that he had undergone a artery bypass surgery He had done well and was subsequently discharged on 09/30/2018.. He re presented here on 10/08/2018 WITH increased shortness of breath and atrial fibrillation with a rapid ventricular response and was treated for acute hypoxic respiratory failure and rate control with amiodarone. He was again discharged to an extended care facility on 10/11/2018. He remains presented here yesterday after developing oozing from his sternal wound. Computed tomography scan of the chest revealed fluid collection subcutaneous tissues extending to the sternotomy line inferiorly into the anterior mediastinum. Suspected abscess versus hemorrhage. There was a diastases of the sternotomy line. Moderate pericardial effusion and a small left pleural effusion. Today he had undergone a sternal reconstruction with plating and removal of the sternal wires by Dr. Enriquez. He is seen in consultation today in the intensive care unit postoperatively. He is intubated and on the mechanical ventilator. Current settings are assist control 12, tidal volume 600, FiO2 50% and a PEEP of 5. Arterial blood gases reveal pO2 of 80, pCO2 of 52 and a pH of 7.45. Chest x-ray shows bilateral atelectasis. He currently has a D5 and half- normal saline at 70 ML's per hour. He's been initiated on Kefzol for 2 doses. He is on heparin subcutaneous for DVT prophylaxis and DuoNeb inhalations every 4 hours. Preop labs revealed a WBC 9.8. Hemoglobin 8.5. Platelet count 407,000. Creatinine 0.84. He'll remain sedated with propofol throughout the evening. Patient was reevaluated today on 10/16/2018, remains on mechanical ventilations, his FiO2 is down to 40%, tidal volume remains at 600, assist control rate is 14. PEEP is at 5. Patient is sedated, presently receiving a unit of packed RBCs for low hemoglobin of 6.5. Patient is on propofol which I will discontinue once the blood is given, and I plan to address weaning and possibly extubation this morning. ABG on 50% FiO2 showed a pO2 of 120 pCO2 of 49 pH of 7.47. Electrolytes are normal renal profile is normal bicarb is 35. CBC showed a hemoglobin of 6.5 WBC count 6.4. Chest x-ray showed worsening small left pleural effusion, and by basilar atelectasis or possible aspirated disease, hence I have recommended empiric Zosyn to be started. Patient was reevaluated today on 10/17/2018, he was extubated yesterday uneventfully, he is presently on few liters nasal cannula, O2 saturation is in the mid 90s. Patient is not in any form of respiratory distress. His chest x- ray showed left basilar atelectasis and possibly pleural effusion, ultrasound of the chest showed small pleural effusion, and I did not feel that it is safe to perform thoracentesis. In the meantime the patient will remain on bronch odilators, oral steroids, and diuretics. WBC count is 7.6 hemoglobin is 7.3. Electrolytes are normal. Patient is asymptomatic, compliant with incentive spirometry, and using his heart hugger when coughing. Patient was reevaluated today on 2018, patient is doing fairly well.he is now postoperative day #3 status post drainage of wound hematoma and reconstruction of sternum using tritium plating system. Patient denies any specific complaints, he is on couple of liters nasal cannula, saturating well. Chest x-ray is showing left lower lobe atelectasis, minimal left pleural effusion, underlying infiltrate is not entirely ruled out but felt to be less likely.hemoglobin is 7.4 electrolytes and basic metabolic profile are normal. Patient was reevaluated today on 10/19/2018, patient is doing well, sitting in bed, relatively asymptomatic, denies any shortness of breath, no cough, no whe ezing. Patient is hemodynamically stable, and he is presently an overflow from telemetry/selective. Patient is achieving 1000 ML in his incentive spirometry. Chest x-ray was reviewed and all his labs were reviewed. The patient was seen today 10/20/2018 in follow-up on the selective care unit. He is currently awake and alert in no acute distress. He's been up ambulating in the room. He denies any worsening shortness of breath, cough or congestion. He is working well with the incentive spirometer. Chest x-ray continues to show left basilar infiltrate with small left pleural effusion. Some minimal platelike atelectasis in the right lung base. He is maintaining good O2 saturations in the mid 90s on room air. He's been afebrile. Hemodynamically stable. Blood and wound cultures were negative. White count 8.8. Hemoglobin 9.4. Creatinine 0.67. On 10/21/2018 patient seen in follow-up on selective care unit. he is awake and alert, in no acute distress, room air pulse ox is 93%, patient is sitting up in the recliner, eating lunch. No acute complaints. today's chest x-ray showed basilar atelectasis, possible small pleural effusions. No complaints of pain or shortness of breath. Tolerating ambulation. Work on his incentive spirometer. Sternum is stable, midsternal incision covered with a dressing, previous the wound VAC is in place. Objective - Vital Signs Vital signs: Vital Signs Temp 98.0 F 10/21/18 11:41 Pulse 72 10/21/18 12:52 Resp 18 10/21/18 11:41 BP 121/81 10/21/18 11:41 Pulse Ox 93 L 10/21/18 11:41 Intake & Output 10/20/18 10/21/18 10/21/18 18:59 06:59 18:59 Intake Total 436 100 0 Output Total 1200 350 Balance -764 100 -350 Weight 118.9 kg 118.9 kg Intake: IV 200 100 Piperacillin-Tazobactam 3 200 100 .375 gm In Sodium Chloride 0.9% 100 ml @ 25 mls/hr IVPB Q8HR [facility] Rx# :[id number] Oral 236 0 Output: Urine 1200 350 Other: Voiding Method Urinal Urinal Urinal # Voids 1 ABP, PAP, CO, CI - Last Documented Arterial Blood Pressure 126/58 - Exam GENERAL EXAM: Alert, active, comfortable in no apparent distress. HEAD: Normocephalic/atraumatic. EYES: Normal reaction of pupils, equal size. Conjunctiva pink, sclera white. NOSE: Clear with pink turbinates. THROAT: No erythema or exudates. NECK: No masses, no JVD, no thyroid enlargement, no adenopathy. CHEST: No chest wall deformity. Symmetrical expansion. Midsternal incision is clean dry and intact, previous wound VAC is in place LUNGS: Equal air entry with diminished breath sounds at the bases CVS: Regular rate and rhythm, normal S1 and S2, no gallops, no murmurs, no rubs ABDOMEN: Soft, nontender. No hepatosplenomegaly, normal bowel sounds, no guarding or rigidity. EXTREMITIES: No clubbing, 2+ bipedal edema, no cyanosis, 2+ pulses and upper and lower extremities. MUSCULOSKELETAL: Muscle strength and tone normal. SPINE: No scoliosis or deformity SKIN: No rashes CENTRAL NERVOUS SYSTEM: Alert and oriented -3. No focal deficits, tone is normal in all 4 extremities. PSYCHIATRIC: Alert and oriented -3. Appropriate affect. Intact judgment and insight. - Labs CBC & Chem 7: 10/21/18 06:23 10/21/18 06:23 Labs: Abnormal Lab Results - Last 24 Hours (Table) 10/14/18 10/16/18 10/20/18 Range/Units 13:20 05:07 16:52 RBC (4.30-5.90) m/uL Hgb (13.0-17.5) gm/dL Hct (39.0-53.0) % MCHC (31.0-37.0) g/dL RDW (11.5-15.5) % Glucose (74-99) mg/dL POC Glucose (mg/dL) 164 H 182 H (75-99) mg/dL Crossmatch See Detail 10/20/18 10/21/18 10/21/18 Range/Units 21:08 06:23 06:23 RBC 3.35 L (4.30-5.90) m/uL Hgb 9.1 L (13.0-17.5) gm/dL Hct 31.0 L (39.0-53.0) % MCHC 29.3 L (31.0-37.0) g/dL RDW 16.6 H (11.5-15.5) % Glucose 107 H (74-99) mg/dL POC Glucose (mg/dL) 174 H (75-99) mg/dL Crossmatch 10/21/18 10/21/18 Range/Units 06:24 11:16 RBC (4.30-5.90) m/uL Hgb (13.0-17.5) gm/dL Hct (39.0-53.0) % MCHC (31.0-37.0) g/dL RDW (11.5-15.5) % Glucose (74-99) mg/dL POC Glucose (mg/dL) 120 H 115 H (75-99) mg/dL Crossmatch Microbiology - Last 24 Hours (Table) 10/15/18 03:04 Blood Culture - Final Blood No Growth after 144 hours 10/15/18 03:04 Blood Culture - Final Blood No Growth after 144 hours Assessment and Plan Plan: Assessment: #1 Mechanical destruction of the sternum. He is status post sternal reconstruction with Tritium plating and removal of sternal wires. Postoperative day #6. #2 Mechanical ventilation support required postoperatively as an expected outcome of surgery. Recovered. #3 Recent coronary artery bypass grafting and valve replacement on 09/24/2018 including a SNELL to the LAD, reverse saphenous vein graft to the first diagonal artery, reverse saphenous vein graft to the obtuse marginal artery and an elective aortic valve replacement utilizing a #27 mm paracardial bioprosthesis magna ease valve. Discharged to [facility] on 09/30/2089 #4 Readmission following surgery for acute hypoxic respiratory failure and atrial flutter with rapid ventricular response. Discharged to ECF on 10/11/2018. #5 morbid obesity. #6 Chronic obstructive pulmonary disease with baseline FEV1 value 64% of predicted. #7 Hypertension. #8 Hyperlipidemia. #9 Diabetes mellitus. Plan: Continue encouraging deep breathing and coughing, ambulation, today's chest x- ray has been reviewed with Dr. Alcantar, showed small bibasilar pleural effusions. Patient is stable, he is on room air, we'll decrease the prednisone to 20 mg daily, wound cultures remain negative thus far. Anticipate discharge to subacute rehab tomorrow. I performed a history & physical examination of the patient and discussed their management with my nurse practitioner, Laney Guevara. I reviewed the nurse practitioner's note and agree with the documented findings and plan of care. Lung sounds are positive for diminished breath sounds. The findings and the impression was discussed with the patient. I attest to the documentation by the nurse practitioner. Time with Patient: Less than 30
--- NOTE | 2018-10-21 15:54 | CDI ---
Documentation Clarification Form Date: 10/21/2018 3:44:06 PM From: Joyce MayfieldJaegerRAFFAELE reece, CCDS Admit Date: 10/14/2018 4:06:00 PM Patient Name: Ari Johnson Visit Number: [id number] Discharge Date: ATTENTION: The Clinical Documentation Specialists (CDI) and [facility] Coding Staff appreciate your assistance in clarifying documentation. Please respond to the clarification below the line at the bottom and electronically sign. The CDI & [facility] Coding staff will review the response and follow-up if needed. Please note: Queries are made part of the Legal Health Record. If you have any questions, please contact the author of this message via ITS. Dr. Andres Messina: Per the 10/19 Cardiology Consult impression: Chronic renal failure, worsening. History/Risk Factors: CAD, CABG & valve replacement, Hypertension, Hyperlipidemia & Morbid obesity. Clinical Indicators: Readmitted with sternal wound dehiscence after valve replacement surgery & mechanical destruction of the sternum requiring repair. BUN: 50 - 32 - 19 Creatinine: 1.05 - 0.88 - 0.76 Baseline Creatinine unknown or not documented. Treatment: IV Vancomycin, IV Ampicillin, Albuterol INH, IV Kefzol, IV Toradol, IV Solumedrol, IV Calcium Chloride, IV Zosyn, IV Lasix In order to capture the severity of condition, please clarify if the condition signifies: CKD Stage 1 (GFR > 90) CKD Stage 2 (GFR 60-89) CKD Stage 3 (GFR 30-59) CKD Stage 4 (GFR 15-29) CKD Stage 5 (GFR <15) Other, please specify Unable to determine (Last Revision: October 2017) MTDD
[2018-10-21 17:01] LABS: Glucose,Whole Blood 177 mg/dL (75-99)
--- NOTE | 2018-10-21 18:52 | P.PN ---
Subjective this is a pleasant 68 years old male status post recent aortic valve replacement for bicuspid aortic valve with coronary artery bypass surgery. Admitted for bleeding from lower sternotomy site, hematoma was evacuated also hemopericardium was evacuated as well.patient remains in the ICU, he resting comfortably not in distress. He denies chest pain. No abdominal pain. No change in urine or bowel habits. No feverrest of Vitas looks stable.hemoglobin 7.3.creatinine 0.8. Sugar controlled. Patient is being followed by several consultants including pulmonary critical care, cardiology and cardiothoracic surgery, infectious disease team. 10/18/2018 Patient is a stable with no chest pain or dyspnea. He is fully awake and oriented. Vitals stable. Hemoglobin 7.4, electrolytes and kidney function within normal levels. Sugar is controlled. Repeat chest x-ray: Possible CHF exacerbation as there is cardiomegaly with central vascular congestion as per radiologist's report. Patient remains on amiodarone, Zosyn and prednisone 30 mg. He is also on tramadol. I discussed the case with vascular surgery today and patient is stable from perspective to be transferred. Patient has been followed by several consultants including pulmonary and critical care team as well as infectious disease team. 10/19/2018 Patient remains in the ICU, his abdominal pain is controlled. He is doing well with no chest pain or dyspnea. patient was started on Colace and senna for constipation. his blood pressure on the low normal side. No dizziness or syncope 10/20/2018 Estimated in bed comfortable not in distress denying chest pain or dyspnea. His been followed by a mini consultants including pulmonary and cardiology team and cardiovascular surgery. Remains on medication including metoprolol, aspirin, lisinopril. Also has taken antibiotics form of Zosyn 10/21/2018 Patient lying in the chair comfortable not in distress. His been followed by mini consultants including pulmonary cardiology team and cardiovascular surgery team. Chest x-rays showed small bilateral pleural effusion. We'll keep monitoring the patient and follow-up Objective - Vital Signs Vital signs: Vital Signs Temp 98 F 10/21/18 16:00 Pulse 90 10/21/18 16:00 Resp 18 10/21/18 16:00 BP 123/64 10/21/18 16:00 Pulse Ox 99 10/21/18 16:00 Intake & Output 10/20/18 10/21/18 10/21/18 18:59 06:59 18:59 Intake Total 436 100 0 Output Total 1200 350 Balance -764 100 -350 Weight 118.9 kg 118.9 kg Intake: IV 200 100 Piperacillin-Tazobactam 3 200 100 .375 gm In Sodium Chloride 0.9% 100 ml @ 25 mls/hr IVPB Q8HR [facility] Rx# :[id number] Oral 236 0 Output: Urine 1200 350 Other: Voiding Method Urinal Urinal Urinal # Voids 1 ABP, PAP, CO, CI - Last Documented Arterial Blood Pressure 126/58 - Exam GENERAL: The patient is alert and oriented x3, not in any acute distress. Well developed, well nourished. HEENT: Pupils are round and equally reacting to light. EOMI. No scleral icterus. No conjunctival pallor. Normocephalic, atraumatic. No pharyngeal erythema. No t hyromegaly. CARDIOVASCULAR: S1 and S2 present. No murmurs, rubs, or gallops. -PULMONARY: Chest is clear to auscultation, no wheezing or crackles. sternotomy wound is closed and dressing is placed, Further examination is deferred to the surgical team ABDOMEN: Soft, nontender, nondistended, normoactive bowel sounds. No palpable organomegaly. MUSCULOSKELETAL: No joint swelling or deformity. EXTREMITIES: No cyanosis, clubbing, or pedal edema. NEUROLOGICAL: Gross neurological examination did not reveal any focal deficits. SKIN: No rashes. - Labs CBC & Chem 7: 10/21/18 06:23 10/21/18 06:23 Labs: Abnormal Lab Results - Last 24 Hours (Table) 10/14/18 10/16/18 10/20/18 Range/Units 13:20 05:07 21:08 RBC (4.30-5.90) m/uL Hgb (13.0-17.5) gm/dL Hct (39.0-53.0) % MCHC (31.0-37.0) g/dL RDW (11.5-15.5) % Glucose (74-99) mg/dL POC Glucose (mg/dL) 164 H 174 H (75-99) mg/dL Crossmatch See Detail 10/21/18 10/21/18 10/21/18 Range/Units 06:23 06:23 06:24 RBC 3.35 L (4.30-5.90) m/uL Hgb 9.1 L (13.0-17.5) gm/dL Hct 31.0 L (39.0-53.0) % MCHC 29.3 L (31.0-37.0) g/dL RDW 16.6 H (11.5-15.5) % Glucose 107 H (74-99) mg/dL POC Glucose (mg/dL) 120 H (75-99) mg/dL Crossmatch 10/21/18 10/21/18 Range/Units 11:16 16:40 RBC (4.30-5.90) m/uL Hgb (13.0-17.5) gm/dL Hct (39.0-53.0) % MCHC (31.0-37.0) g/dL RDW (11.5-15.5) % Glucose (74-99) mg/dL POC Glucose (mg/dL) 115 H 177 H (75-99) mg/dL Crossmatch Microbiology - Last 24 Hours (Table) 10/15/18 03:04 Blood Culture - Final Blood No Growth after 144 hours 10/15/18 03:04 Blood Culture - Final Blood No Growth after 144 hours Assessment and Plan Assessment: hematoma at the surgical site of previous CABG surgery, status post surgical evacuation. Recent history of aortic valve replacement for bicuspid aortic valve and CABG morbid obesity Hypertension Diabetes mellitus recent cigarette smoker hyperlipidemia Plan: this is a pleasant 68 years old male who presents because of hematoma at the surgical site of sternotomy for his CABG and valve replacement.patient remains in the ICU.continue with the current medical treatment including a breathing treatment, KIKA inhibitor, beta misbah,steroids and pain management. Continue with the current antibiotics as per infectious disease will follow and case.Labs and medication were reviewed.. Continue same treatment. Continue with symptomatic treatment. Resume home medication. Monitor lytes and vitals. DVT and GI prophylaxis. Further recommendations of the clinical course of the patient DVT prophylaxis: Subcutaneous heparin GI Prophylaxis: Ppi Prognosis is guarded
[2018-10-21 19:58] LABS: Glucose,Whole Blood 258 mg/dL (75-99)
[2018-10-21] MEDS: ATORVASTATIN 20 MG TAB PO SCH (20:03)
[2018-10-22] MEDS: IPRATROPIUM-ALBUTEROL 3 ML NEB INHALATION SCH ×4 (04:13→16:39)
[2018-10-22 05:51] LABS: Glucose,Whole Blood 105 mg/dL (75-99)
[2018-10-22] MEDS: INSULIN ASPART (NovoLOG) 100 UNIT/ML VIAL SQ SCH ×2 (06:05→12:05)
[2018-10-22] MEDS: PANTOPRAZOLE 40 MG TABLET PO SCH (06:19)
[2018-10-22 06:44] LABS: Anisocytosis Slight; HCT 29.7 % (39.0-53.0); Hypochromasia Marked; MCH 27.4 pg (25.0-35.0); MCHC 30.2 g/dL (31.0-37.0); MCV 90.8 fL (80.0-100.0); Mean Platelet Volume 6.9; Platelet Count 358 k/uL (150-450); Poikilocytosis Slight; RBC 3.28 m/uL (4.30-5.90); RDW 16.8 % (11.5-15.5); WBC 8.7 k/uL (3.8-10.6)
[2018-10-22 06:57] LABS: Anion Gap 5 mmol/L; Blood Urea Nitrogen 18 mg/dL (9-20); Calcium 8.8 mg/dL (8.4-10.2); Carbon Dioxide 31 mmol/L (22-30); Chloride 102 mmol/L (98-107); Glucose 88 mg/dL (74-99); Potassium 3.7 mmol/L (3.5-5.1); Sodium 138 mmol/L (137-145)
--- NOTE | 2018-10-22 08:12 | XR ---
EXAMINATION TYPE: XR chest 1V portable DATE OF EXAM: 10/22/2018 Comparison: 10/21/2018 Clinical History: 68-year-old male Postoperative sternal reconstruction. Findings: Median sternotomy wires are present with some plate and screw fixation hardware. Postoperative clips in the mediastinum. Heart remains mildly enlarged with small left pleural effusion and patchy bibasil ar opacities. Impression: Stable small left pleural effusion with patchy bibasilar atelectasis and/or consolidation.
[2018-10-22] MEDS: METOPROLOL TARTRATE 50 MG TAB PO SCH (08:13)
[2018-10-22] MEDS: ASPIRIN 81 MG PO SCH (08:13)
[2018-10-22] MEDS: SENNOSIDES 8.6 MG TAB PO SCH (08:14)
[2018-10-22] MEDS: DOCUSATE 100 MG CAP PO SCH (08:14)
[2018-10-22] MEDS: HEPARIN SODIUM,PORCINE 5,000 UNIT/ML 1 ML VIAL SQ SCH (08:20)
[2018-10-22] MEDS: PIPERACILLIN-TAZOBACTAM 3.375 GM in SODIUM CHLORIDE 0.9% 100 ML IVPB SCH (08:20)
[2018-10-22] MEDS ORDERED: FUROSEMIDE 40 MG TAB PO SCH (09:00)
[2018-10-22] MEDS ORDERED: predniSONE 20 MG TAB PO SCH (09:00)
[2018-10-22] MEDS ORDERED: POTASSIUM CHLORIDE ER 10 MEQ TAB.ER.PRT PO SCH (09:00)
[2018-10-22] MEDS ORDERED: AMIODARONE 200 MG TAB PO SCH (09:00)
[2018-10-22 11:13] LABS: Glucose,Whole Blood 146 mg/dL (75-99)
--- NOTE | 2018-10-22 11:57 | P.PN ---
Subjective Progress Note Date: 10/22/18 The patient is a 68-year-old male with a history of recent coronary artery bypass grafting with a AVR, who underwent redo sternotomy due to fluid collection. Patient is sitting up in a recliner appears to be comfortable. He states his appetite has been good. No change in his lower extremity edema which is chronic. Patient denies any dizziness, lightheadedness, or fatigue. He also denies any chest pain or discomfort. Blood pressure 120/80 with a heart rate in the 70s to 80s, 93% on room air, afebrile. White blood cell count 9.5, hemoglobin 9.1, platelet count 368. Sodium 139, potassium 3.9, BUN 19 and creatinine 0.7. 10/22/2018 Patient seen and examined this morning, overall doing well. Repeat chest x-ray from this morning showed stable small left pleural effusion with patchy bibasilar atelectasis. Blood pressure 130/70 with a heart rate of 75, 95% on room air. White blood cell count 8.7, hemoglobin 9.0, platelet count 358. Sodium 138, potassium 3.7, BUN 18 and creatinine 0.7. Objective - Vital Signs Vital signs: Vital Signs Temp 98.5 F 10/22/18 08:00 Pulse 75 10/22/18 11:47 Resp 16 10/22/18 11:47 BP 131/71 10/22/18 08:00 Pulse Ox 95 10/22/18 08:00 Intake & Output 10/21/18 10/22/18 10/22/18 18:59 06:59 18:59 Intake Total 0 Output Total 350 500 Balance -350 -500 Weight 118.9 kg 104.7 kg Intake: Oral 0 Output: Urine 350 500 Other: Voiding Method Urinal Urinal # Voids 1 ABP, PAP, CO, CI - Last Documented Arterial Blood Pressure 126/58 - Exam EXAMINATION: Gen: This is a 68-year-old morbidly obese male. He is sitting in a recliner appears to be comfortable in no acute distress. HEENT: Head is atraumatic, normocephalic. Pupils equal, round. Sclerae is anicteric. NECK: Supple. No JVD. LUNGS: Clear to auscultation. No wheezes or rhonchi. No intercostal retractions. HEART: Regular rate and rhythm. Systolic murmur. ABDOMEN: Soft. Bowel sounds are present. No masses. No tenderness. EXTREMITIES: No pedal edema. No calf tenderness. NEUROLOGICAL: Patient is awake, alert and oriented x3. Cranial nerves 2 through 12 are grossly intact. - Labs CBC & Chem 7: 10/22/18 06:28 10/22/18 06:28 Labs: Abnormal Lab Results - Last 24 Hours (Table) 10/21/18 10/21/18 10/22/18 Range/Units 16:40 19:56 05:50 RBC (4.30-5.90) m/uL Hgb (13.0-17.5) gm/dL Hct (39.0-53.0) % MCHC (31.0-37.0) g/dL RDW (11.5-15.5) % Carbon Dioxide (22-30) mmol/L POC Glucose (mg/dL) 177 H 258 H 105 H (75-99) mg/dL 10/22/18 10/22/18 10/22/18 Range/Units 06:28 06:28 11:11 RBC 3.28 L (4.30-5.90) m/uL Hgb 9.0 L (13.0-17.5) gm/dL Hct 29.7 L (39.0-53.0) % MCHC 30.2 L (31.0-37.0) g/dL RDW 16.8 H (11.5-15.5) % Carbon Dioxide 31 H (22-30) mmol/L POC Glucose (mg/dL) 146 H (75-99) mg/dL Assessment and Plan Plan: IMPRESSION / ASSESSMENT: #1 Status post redo sternotomy #2 status post CABG and aortic valve replacement #3 paroxysmal Atrial flutter, currently in sinus rhythm #4 history of COPD #5 hypertension Plan Cardiology's perspective, we'll recommend to continue the patient on his current medications. Discharge to rehab once cleared by the cardiothoracic surgery. DNP note has been reviewed, I agree with a documented findings and plan of care. Patient was seen and examined.
[2018-10-22] MEDS: LISINOPRIL 2.5 MG TAB PO SCH (14:03)
--- NOTE | 2018-10-22 14:11 | P.PN ---
Subjective Progress Note Date: 10/22/18 Principal diagnosis: Mechanical destruction of the sternum, status post aortic valve replacement and coronary artery bypass grafting on 09/24/18. History of bicuspid aortic valve wi th moderate to severe aortic valve stenosis, status post aortic valve replacement with a 27 mm magna ease pericardial bioprosthesis, coronary artery disease with left main disease status post triple vessel coronary artery bypass grafting surgery, chronic diastolic dysfunction, hypertension, hyperlipidemia, morbid obesity, previous tobacco dependence, postoperative atrial flutter with rapid ventricular response and mild COPD with FEV1 64% of predicted. POD #7 drainage of wound hematoma and reconstruction of the sternum using Tritium plating system. Postoperative acute blood loss anemia, an unexpected but potential outcome. The patient is sitting up to the bedside chair eating his breakfast. He is in no acute distress. He denies any complaints of pain or shortness of breath. The patient reports he has been ambulating in the 3 self cardiac stepdown unit hallway with minimal assistance. He remains on room air with oxygen saturations 95% and he is achieving 1250 mL on his incentive spirometry. He denies any clicking or movement in his sternum. His sternal incision remains with the Prevena VAC dressing which is clean, dry and in intact. Surgical support bra and heart hugger remain in place and he is demonstrating good use on his heart hugger. Objective - Vital Signs Vital signs: Vital Signs Temp 98.5 F 10/22/18 08:00 Pulse 78 10/22/18 11:57 Resp 16 10/22/18 11:57 BP 131/71 10/22/18 08:00 Pulse Ox 95 10/22/18 08:00 Intake & Output 10/21/18 10/22/18 10/22/18 18:59 06:59 18:59 Intake Total 0 Output Total 350 500 Balance -350 -500 Weight 118.9 kg 104.7 kg Intake: Oral 0 Output: Urine 350 500 Other: Voiding Method Urinal Urinal # Voids 1 ABP, PAP, CO, CI - Last Documented Arterial Blood Pressure 126/58 - Constitutional General appearance: Present: cooperative, morbidly obese, no acute distress - Respiratory Details: Lungs sounds essentially clear throughout, diminished to his bilateral bases. Respirations are symmetrical and nonlabored. Oxygen saturation are 95% on room air. He is achieving 1250 mL on his incentive spirometry. - Cardiovascular Details: Regular rhythm and rate. S1 and S2 present, negative for S3, gallop or murmur. Sternum is stable. Remote telemetry showing normal sinus rhythm heart rate 92. Heart hugger and surgical support bra is in place and he is demonstrating good use on his heart hugger. Knee-high SUZIE hose and sequential compression devices in place to his bilateral lower extremities. - Gastrointestinal Gastrointestinal Comment(s): Abdomen is soft, nontender and nondistended. Active bowel sounds all 4 abdominal quadrants. Tolerating oral intake. No guarding or rigidity. No organomegaly. - Genitourinary Genitourinary Comment(s): Voiding clear yellow urine. - Integumentary Integumentary Comment(s): Skin is warm and dry. No clubbing or cyanosis is present. Prevena Vac dressing was removed this morning and his sternal incision remains clean, dry and approximated. No drainage or redness is present. Right lower extremity EVH site clean, dry and approximated. No drainage or redness is present. - Neurologic Neurologic: Present: CNII-XII intact - Musculoskeletal Musculoskeletal: Present: gait normal, strength equal bilaterally - Psychiatric Psychiatric: Present: A&O x's 3, appropriate affect, intact judgment & insight - Allied health notes Allied health notes reviewed: nursing - Labs CBC & Chem 7: 10/22/18 06:28 10/22/18 06:28 Labs: Abnormal Lab Results - Last 24 Hours (Table) 10/21/18 10/21/18 10/22/18 Range/Units 16:40 19:56 05:50 RBC (4.30-5.90) m/uL Hgb (13.0-17.5) gm/dL Hct (39.0-53.0) % MCHC (31.0-37.0) g/dL RDW (11.5-15.5) % Carbon Dioxide (22-30) mmol/L POC Glucose (mg/dL) 177 H 258 H 105 H (75-99) mg/dL 10/22/18 10/22/18 10/22/18 Range/Units 06:28 06:28 11:11 RBC 3.28 L (4.30-5.90) m/uL Hgb 9.0 L (13.0-17.5) gm/dL Hct 29.7 L (39.0-53.0) % MCHC 30.2 L (31.0-37.0) g/dL RDW 16.8 H (11.5-15.5) % Carbon Dioxide 31 H (22-30) mmol/L POC Glucose (mg/dL) 146 H (75-99) mg/dL - Imaging and Cardiology Chest x-ray: report reviewed, image reviewed Assessment and Plan Assessment: 1. Mechanical destruction of the sternum, status post reconstruction using Tritium plating system with placement of mediastinal chest tube for drainage of wound hematoma. 2. Status post aortic valve replacement on 09/24/2018. 3. Status post aortocoronary bypass grafting surgery 3 vessels on 09/24/2018. 4. History of bicuspid aortic valve with moderate to severe aortic valve stenosis. 5. History of coronary artery disease, with left main disease. 6. Anemia of chronic disease. 7. Hypertension, 8. Hyperlipidemia. 9. Chronic obstructive pulmonary disease with an FEV1 of 64% of predicted. 10. Morbid obesity. 11. Postoperative atrial flutter, currently normal sinus rhythm. 12. Chronic diastolic dysfunction. 13. Tobacco dependence in remission. 14. Postoperative acute blood loss anemia, status post transfusion of 1 unit packed red blood cells. Plan: 1. Continue aspirin, statin, KIKA inhibitor, and beta misbah. We will increase his metoprolol tartrate 75 mg by mouth twice a day 2. Continue amiodarone 200 mg by mouth daily for atrial fibrillation/atrial flutter prophylaxis. Keep amiodarone 200 mg by mouth daily 1 month starting 10/22/[address] Messina. 3. Encourage use of his incentive spirometry every hour while awake. 4. Increase activity as tolerated. PT/OT following. 5. Monitor daily labs and x-rays. Replace electrolytes per protocol. 6. Steroids, bronchodilators per pulmonology. Currently on prednisone 20 mg by mouth daily. 7. Remove Prevena VAC dressing in place. Patient will need to follow postop recommendations, shower daily using liquid antibacterial soap on each individual incision. 8. GI prophylaxis with Protonix, DVT prophylaxis with subcu heparin, SCDs. 9. Pain control per current medication regimen. 10. Medical management of other comorbid conditions per primary, cardiology, pulmonology. 11. Lasix 40 mg by mouth daily and potassium chloride 10 mEq by mouth daily while on the Lasix. 13. May be discharged to extended care facility/inpatient rehab for further rehabilitation needs per the cardiothoracic surgery standpoint. 14. Continue to reinforced with the patient the importance of using his heart hugger and wearing his surgical support bra and protecting his sternum. Reiterated the importance of lifting restrictions, no more than 5 pounds lifting, pushing or pulling for 12 full weeks. 15. Follow-up with Dr. Enriquez in the office as scheduled if discharged today. 16. More recommendations to follow based on patient's clinical course. Time with Patient: Greater than 30
[2018-10-22 14:28] VITALS: BP 116/71; RESP 18; TEMP 98.1
--- NOTE | 2018-10-22 15:40 | P.PN ---
Subjective Progress Note Date: 10/22/18 Principal diagnosis: mechanical distraction of the sternum, status post aortic valve replacement and coronary artery bypass This is a 67-year-old gentleman who follows with Dr. Don as his primary care physician. He has a past medical history of hypertension, hyperlipidemia, m orbid obesity, previous tobacco dependence, chronic obstructive pulmonary disease with FEV1 value 64% of predicted. He was also recently found to have significant coronary artery disease and on 09/24/2018 that he had undergone a artery bypass surgery He had done well and was subsequently discharged on 09/30/2018.. He re presented here on 10/08/2018 WITH increased shortness of breath and atrial fibrillation with a rapid ventricular response and was treated for acute hypoxic respiratory failure and rate control with amiodarone. He was again discharged to an extended care facility on 10/11/2018. He remains presented here yesterday after developing oozing from his sternal wound. Computed tomography scan of the chest revealed fluid collection subcutaneous tissues extending to the sternotomy line inferiorly into the anterior mediastinum. Suspected abscess versus hemorrhage. There was a diastases of the sternotomy line. Moderate pericardial effusion and a small left pleural effusion. Today he had undergone a sternal reconstruction with plating and removal of the sternal wires by Dr. Enriquez. He is seen in consultation today in the intensive care unit postoperatively. He is intubated and on the mechanical ventilator. Current settings are assist control 12, tidal volume 600, FiO2 50% and a PEEP of 5. Arterial blood gases reveal pO2 of 80, pCO2 of 52 and a pH of 7.45. Chest x-ray shows bilateral atelectasis. He currently has a D5 and half- normal saline at 70 ML's per hour. He's been initiated on Kefzol for 2 doses. He is on heparin subcutaneous for DVT prophylaxis and DuoNeb inhalations every 4 hours. Preop labs revealed a WBC 9.8. Hemoglobin 8.5. Platelet count 407,000. Creatinine 0.84. He'll remain sedated with propofol throughout the evening. Patient was reevaluated today on 10/16/2018, remains on mechanical ventilations, his FiO2 is down to 40%, tidal volume remains at 600, assist control rate is 14. PEEP is at 5. Patient is sedated, presently receiving a unit of packed RBCs for low hemoglobin of 6.5. Patient is on propofol which I will discontinue once the blood is given, and I plan to address weaning and possibly extubation this morning. ABG on 50% FiO2 showed a pO2 of 120 pCO2 of 49 pH of 7.47. Electrolytes are normal renal profile is normal bicarb is 35. CBC showed a hemoglobin of 6.5 WBC count 6.4. Chest x-ray showed worsening small left pleural effusion, and by basilar atelectasis or possible aspirated disease, hence I have recommended empiric Zosyn to be started. Patient was reevaluated today on 10/17/2018, he was extubated yesterday uneventfully, he is presently on few liters nasal cannula, O2 saturation is in the mid 90s. Patient is not in any form of respiratory distress. His chest x- ray showed left basilar atelectasis and possibly pleural effusion, ultrasound of the chest showed small pleural effusion, and I did not feel that it is safe to perform thoracentesis. In the meantime the patient will remain on bronch odilators, oral steroids, and diuretics. WBC count is 7.6 hemoglobin is 7.3. Electrolytes are normal. Patient is asymptomatic, compliant with incentive spirometry, and using his heart hugger when coughing. Patient was reevaluated today on 2018, patient is doing fairly well.he is now postoperative day #3 status post drainage of wound hematoma and reconstruction of sternum using tritium plating system. Patient denies any specific complaints, he is on couple of liters nasal cannula, saturating well. Chest x-ray is showing left lower lobe atelectasis, minimal left pleural effusion, underlying infiltrate is not entirely ruled out but felt to be less likely.hemoglobin is 7.4 electrolytes and basic metabolic profile are normal. Patient was reevaluated today on 10/19/2018, patient is doing well, sitting in bed, relatively asymptomatic, denies any shortness of breath, no cough, no whe ezing. Patient is hemodynamically stable, and he is presently an overflow from telemetry/selective. Patient is achieving 1000 ML in his incentive spirometry. Chest x-ray was reviewed and all his labs were reviewed. The patient was seen today 10/20/2018 in follow-up on the selective care unit. He is currently awake and alert in no acute distress. He's been up ambulating in the room. He denies any worsening shortness of breath, cough or congestion. He is working well with the incentive spirometer. Chest x-ray continues to show left basilar infiltrate with small left pleural effusion. Some minimal platelike atelectasis in the right lung base. He is maintaining good O2 saturations in the mid 90s on room air. He's been afebrile. Hemodynamically stable. Blood and wound cultures were negative. White count 8.8. Hemoglobin 9.4. Creatinine 0.67. On 10/21/2018 patient seen in follow-up on [facility] care unit. he is awake and alert, in no acute distress, room air pulse ox is 93%, patient is sitting up in the recliner, eating lunch. No acute complaints. today's chest x-ray showed basilar atelectasis, possible small pleural effusions. No complaints of pain or shortness of breath. Tolerating ambulation. Work on his incentive spirometer. Sternum is stable, midsternal incision covered with a dressing, previous the wound VAC is in place. On 10/22/2018 patient seen in follow-up on [facility] care unit, he sitting up in the recliner, in no acute distress, his midsternal incision is clean dry and intact, well approximated, and the dressing has been removed, no drainage noted, sternal incision is stable. No fever or chills, hemodynamically patient is stable, patient has been ambulating, eating activity well, he took a shower today, rheumatoid pulse ox 96%, his labs have been reviewed, white blood cell count is 8.7, hemoglobin is 9.0, electrolytes and renal profile are unremarkable. Blood, and chest wound cultures remain negative thus far. Patient remains on Zosyn for antibiotic coverage. Patient is transferred to [facility] the [facility] today. Objective - Vital Signs Vital signs: Vital Signs Temp 98.1 F 10/22/18 12:00 Pulse 87 10/22/18 12:00 Resp 18 10/22/18 12:00 BP 116/71 10/22/18 12:00 Pulse Ox 96 10/22/18 12:00 Intake & Output 10/21/18 10/22/18 10/22/18 18:59 06:59 18:59 Intake Total 0 Output Total 350 500 Balance -350 -500 Weight 118.9 kg 104.7 kg Intake: Oral 0 Output: Urine 350 500 Other: Voiding Method Urinal Urinal # Voids 1 ABP, PAP, CO, CI - Last Documented Arterial Blood Pressure 126/58 - Exam GENERAL EXAM: Alert, active, comfortable in no apparent distress. HEAD: Normocephalic/atraumatic. EYES: Normal reaction of pupils, equal size. Conjunctiva pink, sclera white. NOSE: Clear with pink turbinates. THROAT: No erythema or exudates. NECK: No masses, no JVD, no thyroid enlargement, no adenopathy. CHEST: No chest wall deformity. Symmetrical expansion. Midsternal incision is clean dry and intact, dressing has been removed, incision is clean dry and intact, approximated, sternum stable LUNGS: Equal air entry with diminished breath sounds at the bases CVS: Regular rate and rhythm, normal S1 and S2, no gallops, no murmurs, no rubs ABDOMEN: Soft, nontender. No hepatosplenomegaly, normal bowel sounds, no guarding or rigidity. EXTREMITIES: No clubbing, 2+ bipedal edema, no cyanosis, 2+ pulses and upper and lower extremities. MUSCULOSKELETAL: Muscle strength and tone normal. SPINE: No scoliosis or deformity SKIN: No rashes CENTRAL NERVOUS SYSTEM: Alert and oriented -3. No focal deficits, tone is normal in all 4 extremities. PSYCHIATRIC: Alert and oriented -3. Appropriate affect. Intact judgment and insight. - Labs CBC & Chem 7: 10/22/18 06:28 10/22/18 06:28 Labs: Abnormal Lab Results - Last 24 Hours (Table) 10/21/18 10/21/18 10/22/18 Range/Units 16:40 19:56 05:50 RBC (4.30-5.90) m/uL Hgb (13.0-17.5) gm/dL Hct (39.0-53.0) % MCHC (31.0-37.0) g/dL RDW (11.5-15.5) % Carbon Dioxide (22-30) mmol/L POC Glucose (mg/dL) 177 H 258 H 105 H (75-99) mg/dL 10/22/18 10/22/18 10/22/18 Range/Units 06:28 06:28 11:11 RBC 3.28 L (4.30-5.90) m/uL Hgb 9.0 L (13.0-17.5) gm/dL Hct 29.7 L (39.0-53.0) % MCHC 30.2 L (31.0-37.0) g/dL RDW 16.8 H (11.5-15.5) % Carbon Dioxide 31 H (22-30) mmol/L POC Glucose (mg/dL) 146 H (75-99) mg/dL Assessment and Plan Plan: Assessment: #1 Mechanical destruction of the sternum. He is status post sternal reconstruction with Tritium plating and removal of sternal wires. Postoperative day #7. #2 Mechanical ventilation support required postoperatively as an expected outcome of surgery. Recovered. #3 Recent coronary artery bypass grafting and valve replacement on 09/24/2018 including a SNELL to the LAD, reverse saphenous vein graft to the first diagonal artery, reverse saphenous vein graft to the obtuse marginal artery and an elective aortic valve replacement utilizing a #27 mm paracardial bioprosthesis magna ease valve. Discharged to [facility]CF on 09/30/2089 #4 Readmission following surgery for acute hypoxic respiratory failure and atrial flutter with rapid ventricular response. Discharged to ECF on 10/11/2018. #5 morbid obesity. #6 Chronic obstructive pulmonary disease with baseline FEV1 value 64% of predicted. #7 Hypertension. #8 Hyperlipidemia. #9 Diabetes mellitus. Plan: Patient is stable for discharge and pulmonary perspective, no acute complaints, no shortness of breath, no chest pain, he is on room air, vital signs are stable, no fever or chills. Today's chest x-ray shows stable small left pleural effusion with patchy bibasilar atelectasis. I performed a history & physical examination of the patient and discussed their management with my nurse practitioner, Laney Guevara. I reviewed the nurse practitioner's note and agree with the documented findings and plan of care. Lung sounds are positive for diminished breath sounds. The findings and the impression was discussed with the patient. I attest to the documentation by the nurse practitioner. Time with Patient: Less than 30
[2018-10-22 16:20] LABS: Glucose,Whole Blood 138 mg/dL (75-99)
[2018-10-22 16:49] VITALS: PULSE 74
--- NOTE | 2018-10-22 17:00 | P.DS ---
Providers Date of admission: 10/14/18 16:06 Attending physician: Bryce Sexton Consults: 10/14/18 16:13 Consult Physician Routine Consulting Provider: Reyes Crook Consult Reason/Comments: chest wall abscess Do you want consulting provider notified?: Yes 10/14/18 16:19 Consult Physician Urgent Consulting Provider: Mag Enriquez Consult Reason/Comments: chest wall fluid collection, recent cabg Do you want consulting provider notified?: Already Contacted 10/15/18 11:07 Consult Physician Routine Consulting Provider: Margaret Holland Consult Reason/Comments: pulm management, icu management Do you want consulting provider notified?: Already Contacted 10/15/18 17:51 Consult Physician Stat Consulting Provider: Margaret Holland Consult Reason/Comments: ventilator Do you want consulting provider notified?: Already Contacted 10/16/18 08:16 Consult Physician Routine Consulting Provider: Mack Van Consult Reason/Comments: card mgmt post AVR/cabg Do you want consulting provider notified?: Already Contacted Primary care physician: Elvis Don Hospital Course: Diagnoses: hematoma at the surgical site of previous CABG surgery, status post surgical evacuation. Recent history of aortic valve replacement for bicuspid aortic valve and CABG morbid obesity Hypertension Diabetes mellitus recent cigarette smoker hyperlipidemia Hospital course: this is a pleasant 68 years old male status post recent aortic valve replacement for bicuspid aortic valve with coronary artery bypass surgery, 3 weeks prior to admission to the hospital. Admitted for bleeding from lower sternotomy site, hematoma was evacuated also hemopericardium was evacuated as well. Patient was monitored initially in the ICU with silver consult is following him including cardiothoracic surgery, formwork carpenter, hotbed transfer operator and infectious diseases specialist. Patient was treated with antibiotics Zosyn as well as a steroids. Also patient was on diuretics. Patient remained stable and he returned back to his baseline, on the day of discharge patient denies chest pain, no dyspnea, hysterectomy and diet well with no abdominal pain or nausea vomiting. No change in urine or bowel habits. Patient is able to walk in the hallway and he is doing well regarding this. A shunt was cleared by all consultants for discharge including cardiothoracic, formwork carpenter, hotbed transfer operator and infectious disease. Patient himself felt ready to go to rehab. Patient was found stable and can discharge to [facility] in guarded prognosis, however he needs follow-up as an outpatient. Patient was instructed to follow up and he agrees with the appointments made for him Patient was on Eliquis prior to this admission to the hospital, which is held on admission. upon discharge we checked with our cardiology and cardiovascular surgery team and both recommended to keep holding her eliquis for now and to f/u with both clinics as outpt. pt is going to be discharged on prednisone 40 mg daily based upon pulmonary team recommendation . discussed with staff Physical exam Gen: patient is a AAOx3, no distress CVS: S1-S2, RRR, no murmur Lungs: B/L CTA, no wheezing. Sternum wound is closed with dressing in place, no surrounding cellulitis. Abdomen: soft, no distention, no tenderness, positive bowel sounds Extremity: no leg edema or induration Time spent more than 35 minutes Patient Condition at Discharge: Stable Plan - Discharge Summary Discharge Rx Participant: Yes New Discharge Prescriptions: New Amoxic-Pot Clav 875-125Mg [Augmentin 875-125] 1 tab PO Q12HR #10 tablet Amiodarone [Cordarone] 200 mg PO DAILY tab Potassium Chloride ER [K-Dur 10] 10 meq PO DAILY tab.er.prt Furosemide [Lasix] 40 mg PO DAILY tab Atorvastatin [Lipitor] 20 mg PO HS tab Metoprolol Tartrate [Lopressor] 75 mg PO BID tab INSULIN ASPART (NovoLOG) [NovoLOG (formulary)] 0 unit SQ ACHS vial Lisinopril [Zestril] 2.5 mg PO DAILY@1200 tab Continue Cholecalciferol [Vitamin D3] 2,000 unit PO DAILY@0900 Acetaminophen Tab [Tylenol] 650 mg PO Q6HR PRN PRN Reason: Pain Nitroglycerin Sl Tabs [Nitrostat] 0.4 mg SUBLINGUAL Q5M PRN tab PRN Reason: Chest Pain Aspirin 81 mg PO DAILY@0900 metFORMIN HCL [Glucophage] 500 mg PO BID@0900,1700 Pantoprazole [Protonix] 40 mg PO AC-BRKFST@0600 Sennosides [Senokot] 8.6 mg PO DAILY@0900 Ipratropium-Albuterol Nebulize [Duoneb 0.5 mg-3 mg/3 ml Soln] 3 ml INHALATION RT-Q8H Discontinued Apixaban [Eliquis] 5 mg PO BID@0900,2100 Furosemide [Lasix] 40 mg PO BID@0600,1400 Lisinopril [Zestril] 2.5 mg PO BID@1200,1400 Metoprolol Tartrate [Lopressor] 100 mg PO BID@0900,2100 predniSONE See Taper PO DAILY Discharge Medication List Cholecalciferol [Vitamin D3] 2,000 unit PO DAILY@0900 08/12/18 [History] Acetaminophen Tab [Tylenol] 650 mg PO Q6HR PRN 10/08/18 [History] Nitroglycerin Sl Tabs [Nitrostat] 0.4 mg SUBLINGUAL Q5M PRN tab 10/11/18 [Rx] Aspirin 81 mg PO DAILY@0900 10/14/18 [History] Ipratropium-Albuterol Nebulize [Duoneb 0.5 mg-3 mg/3 ml Soln] 3 ml INHALATION RT-Q8H 10/14/18 [History] Pantoprazole [Protonix] 40 mg PO AC-BRKFST@0600 10/14/18 [History] Sennosides [Senokot] 8.6 mg PO DAILY@0900 10/14/18 [History] metFORMIN HCL [Glucophage] 500 mg PO BID@0900,1700 10/14/18 [History] Amiodarone [Cordarone] 200 mg PO DAILY tab 10/22/18 [Rx] Amoxic-Pot Clav 875-125Mg [Augmentin 875-125] 1 tab PO Q12HR #10 tablet 10/22/18 [Rx] Atorvastatin [Lipitor] 20 mg PO HS tab 10/22/18 [Rx] Furosemide [Lasix] 40 mg PO DAILY tab 10/22/18 [Rx] INSULIN ASPART (NovoLOG) [NovoLOG (formulary)] 0 unit SQ ACHS vial 10/22/18 [Rx] Lisinopril [Zestril] 2.5 mg PO DAILY@1200 tab 10/22/18 [Rx] Metoprolol Tartrate [Lopressor] 75 mg PO BID tab 10/22/18 [Rx] Potassium Chloride ER [K-Dur 10] 10 meq PO DAILY tab.er.prt 10/22/18 [Rx] Follow up Appointment(s)/Referral(s): Mag Enriquez MD [STAFF PHYSICIAN] - 10/25/18 10:00 am (Sunday -previously scheduled appointment) Elvis Don MD [Primary Care Provider] - 10/25/18 11:20 am (Sunday -previously scheduled appointment) Cj Leach MD [STAFF PHYSICIAN] - 1 Week Patient Instructions/Handouts: Sternal Precautions (GEN) Activity/Diet/Wound Care/Special Instructions: [facility] cardiac diet Hold Eliquis mable Carlos FUR JOINER activity as tolerated Wound care instructions: Clean incision and punctures with antibacterial soap daily. Pat or allow to air dry.Monitor for signs and symptom of infection. Discharge Disposition: TRANSFER TO SNF/ECF
[2018-10-23] MEDS ORDERED: predniSONE 20 MG TAB PO SCH (09:00)
== END 2018-10-22 17:45 | DRG 907 ==
LOC: EC 12:27 → 3SCARD 16:06 → 2SICU 10-15 14:44 → 3SCARD 10-19 14:11
PROVIDERS: ADMIT Hospitalist; ATTEND Hospitalist
PROC: 0PU Upper Bones, Supplement (ICD-10-PCS; principal; 2018-10-15 07:30)
PROC: 0JC60ZZ Extirpation of Matter from Chest Subcutaneous Tissue and Fascia, Open Approach (ICD-10-PCS; 2018-10-15 07:30)
PROC: 30233N1 Transfusion of Nonautologous Red Blood Cells into Peripheral Vein, Percutaneous Approach (ICD-10-PCS; 2018-10-16)
DX: T81.32XA Disruption of internal operation (surgical) wound, not elsewhere classified, initial encounter (principal); I50.33 Acute on chronic diastolic (congestive) heart failure; L76.32 Postprocedural hematoma of skin and subcutaneous tissue following other procedure; D62 Acute posthemorrhagic anemia; I31.2 Hemopericardium, not elsewhere classified; I31.3 Pericardial effusion (noninflammatory); I42.9 Cardiomyopathy, unspecified; J44.1 Chronic obstructive pulmonary disease with (acute) exacerbation; J98.11 Atelectasis; I48.92 Unspecified atrial flutter; I50.32 Chronic diastolic (congestive) heart failure; I95.9 Hypotension, unspecified; I11.0 Hypertensive heart disease with heart failure; I48.0 Paroxysmal atrial fibrillation; E66.01 Morbid (severe) obesity due to excess calories; E11.9 Type 2 diabetes mellitus without complications; D63.8 Anemia in other chronic diseases classified elsewhere; E78.5 Hyperlipidemia, unspecified; F17.201 Nicotine dependence, unspecified, in remission; G47.30 Sleep apnea, unspecified; I25.10 Atherosclerotic heart disease of native coronary artery without angina pectoris; K59.00 Constipation, unspecified; R10.9 Unspecified abdominal pain; Z68.39 Body mass index [BMI] 39.0-39.9, adult; Z79.01 Long term (current) use of anticoagulants; Z79.82 Long term (current) use of aspirin; Z79.84 Long term (current) use of oral hypoglycemic drugs; Z79.899 Other long term (current) drug therapy; Z95.810 Presence of automatic (implantable) cardiac defibrillator; Z95.1 Presence of aortocoronary bypass graft; Z95.3 Presence of xenogenic heart valve; Z80.1 Family history of malignant neoplasm of trachea, bronchus and lung; Y83.2 Surgical operation with anastomosis, bypass or graft as the cause of abnormal reaction of the patient, or of later complication, without mention of misadventure at the time of the procedure
CPT/HCPCS: 36415; 71045; 71046; 71260; 76604; 80048; 80053; 82805; 83735; 83880; 84100; 84484; 85025; 85027; 85610; 85652; 85730; 86140; 86850; 86900; 86901; 86920; 87040; 87070; 87075; 87205; 93005; 94002; 94003; 94640; 94760; 96361; 96365; 99285

== ENCOUNTER 2018-10-23 18:46 | Inpatient (IN) | payer MEDICARE ==
[2018-10-23] MEDS ORDERED: SODIUM CHLORIDE 0.9% 500 ML IV STA (19:03)
--- NOTE | 2018-10-23 19:03 | ED ---
General Adult HPI - General Chief complaint: Arrhythmia/Palpitations Stated complaint: arrythmia Time Seen by Provider: 10/23/18 18:48 Source: EMS Mode of arrival: EMS Limitations: no limitations - History of Present Illness Initial comments: Dictation was produced using [employer] dictation software. please excuse any grammatical, word or spelling errors. Chief Complaint: Patient is a 68-year-old male with a recent aortic valve replacement for bicuspid aortic valve and CABG surgery with chief complaint of elevated heart rate. History of Present Illness: Patient is a 68-year-old. 3 weeks ago patient had a aortic valve replacement and CABG performed. Procedure was done here by Dr. Aden. Patient was recently admitted to the hospital where he was admitted for approximately 3 days. Patient was found to have a chest wall abscess. He was placed on antibiotics. Patient was also placed on diuretics. Patient stat es he was discharged last night. He was dispositioned back to rehab facility. This morning he was evaluated by Dr. Don at the rehab facility he was found have a heart rate in the 150s. Chart review shows that patient was initially unable course however after the surgery his anticoagulation was discontinued. The ROS documented in this emergency department record has been reviewed and confirmed by me. Those systems with pertinent positive or negative responses have been documented in the HPI. All other systems are other negative and/or noncontributory. PHYSICAL EXAM: General Impression: Alert and oriented x3, not in acute distress HEENT: Normocephalic atraumatic, extra-ocular movements intact, pupils equal and reactive to light bilaterally, mucous membranes moist. Cardiovascular: Tachycardic Chest: Sternotomy scar, clean dry and intact without any surrounding erythema. Abdomen: Bowel sounds present, abdomen soft, non-tender, non-distended, no organomegaly, multiple areas of bruising around the anterior abdomen Musculoskeletal: Pulses present and equal in all extremities, no peripheral edema Motor: no focal deficits noted Neurological: CN II-XII grossly intact, no focal motor or sensory deficits noted Psych: Normal affect and mood ED course: 68-year-old male presents with elevated heart rate. He was recently admitted for chest wall infection status post cardiothoracic surgery. Chart review shows the patient has past medical history of paroxysmal atrial fibrillation. Education is reviewed. Patient is on rectally medications along with amiodarone.Laboratory evaluation obtained. CBC coag panel, metabolic panel is obtained. CBC is unremarkable. Coag panel negative. Metabolic panel is unremarkable. Patient is nontender troponin with the level of 0.05. Labs are otherwise unremarkable. Chest x-ray was obtained showing no acute processes. Patient case was discussed in detail with Dr. Mcgill of cardiology. He recommends patient be started on Cardizem and his amiodarone by mouth dose be increased to 40 mg. Patient appears stable at this time. Patient be admitted to cardiac telemetry. Clinical presentation is consistent with tachydysrhythmia. Clinical presentation is likely atrial flutter versus atrial fibrillation. Patient appears well upon reevaluation. He has no complete at this time. EKG interpretation: Ventricular rate 146, QRS 146, QTC 542. No VT prolongation, no QTC prolongation, no ST or T-wave changes noted. EKG compared to 10/14/2018 showing no changes. - Related Data Home Medications Medication Instructions Recorded Confirmed Cholecalciferol [Vitamin D3] 2,000 unit PO DAILY@0900 08/12/18 10/23/18 Acetaminophen Tab [Tylenol] 650 mg PO Q6HR PRN 10/08/18 10/23/18 Aspirin 81 mg PO DAILY@0900 10/14/18 10/23/18 Ipratropium-Albuterol Nebulize 3 ml INHALATION RT-Q8H 10/14/18 10/23/18 [Duoneb 0.5 mg-3 mg/3 ml Soln] Pantoprazole [Protonix] 40 mg PO AC-BRKFST@0600 10/14/18 10/23/18 Sennosides [Senokot] 8.6 mg PO DAILY@0900 10/14/18 10/23/18 metFORMIN HCL [Glucophage] 500 mg PO BID@0900,1700 10/14/18 10/23/18 Amiodarone [Cordarone] 200 mg PO DAILY@0900 10/23/18 10/23/18 Apixaban [Eliquis] 5 mg PO DIRECTED 10/23/18 10/23/18 Atorvastatin [Lipitor] 20 mg PO HS@2100 10/23/18 10/23/18 Furosemide [Lasix] 40 mg PO DAILY@0600 10/23/18 10/23/18 INSULIN LISPRO (HumaLOG) [HumaLOG] See Protocol SQ ACHS 04/03/19 04/03/19 Metoprolol Tartrate [Lopressor] 75 mg PO BID@0900,2100 10/23/18 10/23/18 Potassium Chloride ER [K-Dur 10] 10 meq PO DAILY@0900 10/23/18 10/23/18 predniSONE 40 mg PO DAILY@0900 10/23/18 10/23/18 Previous Rx's Medication Instructions Recorded Nitroglycerin Sl Tabs [Nitrostat] 0.4 mg SUBLINGUAL Q5M PRN tab 10/11/18 Amoxic-Pot Clav 875-125Mg 1 tab PO Q12HR #10 tablet 10/22/18 [Augmentin 875-125] Lisinopril [Zestril] 2.5 mg PO DAILY@1200 tab 10/22/18 Allergies Allergy/AdvReac Type Severity Reaction Status Date / Time No Known Allergies Allergy Verified 10/23/18 18:56 Review of Systems ROS Statement: Those systems with pertinent positive or pertinent negative responses have been documented in the HPI. ROS Other: All systems not noted in ROS Statement are negative. Past Medical History Past Medical History: Coronary Artery Disease (CAD), COPD, Hyperlipidemia, Hypertension Additional Past Medical History / Comment(s): Coronary artery disease and previous history of Bicuspid aortic valve with moderate to severe aortic valve stenosis with a peak gradient of 60 mmHg and a mean gradient of 30 mmHg across the aortic valve and moderate aortic valve regurgitation. The patient underwent coronary artery bypass surgery and aortic valve replacement with a prosthetic valve, Morbid obesity with a BMI of 42.9 kg/m, COPD, hyperlipidemia, hypertension, diabetes mellitus History of Any Multi-Drug Resistant Organisms: None Reported Past Surgical History: Cardiac Valve Replacement, Coronary Bypass/CABG, Heart Catheterization, Orthopedic Surgery Additional Past Surgical History / Comment(s): ORIF LEFT ANKLE, LACERATION REPAIR OF LEFT FOREARM,RT BREAST I&D, on 09/24/2018 patient underwent a triple- vessel coronary artery bypass grafting using the left internal mammary artery to left anterior setting coronary artery, a reverse greater saphenous vein graft from the aorta to the first diagonal coronary artery, a reverse greater saphenous vein graft from the aorta to the first obtuse marginal coronary artery, and aortic valve replacement using a #27 mm pericardial bioprosthesis magna ease and exclusion of his left atrial appendage using a 40 mm Atriclip. Past Anesthesia/Blood Transfusion Reactions: No Reported Reaction Additional Past Anesthesia/Blood Transfusion Reaction / Comment(s): hx no blood transfusion Past Psychological History: No Psychological Hx Reported Smoking Status: Former smoker - Past Family History Mother Family Medical History: Cancer Additional Family Medical History / Comment(s): LUNG CANCER Father Family Medical History: No Reported History General Exam Limitations: no limitations Course Vital Signs 10/23/18 10/23/18 18:50 20:04 Temperature 97.8 F Pulse Rate 149 H 144 H Respiratory 20 18 Rate Blood Pressure 128/60 102/77 O2 Sat by Pulse 94 L 96 Oximetry Medical Decision Making - Lab Data Result diagrams: 10/23/18 19:05 10/23/18 19:05 Lab Results 10/23/18 10/23/18 10/23/18 Range/Units 19:05 19:05 19:05 WBC 9.5 (3.8-10.6) k/uL RBC 3.60 L (4.30-5.90) m/uL Hgb 10.0 L (13.0-17.5) gm/dL Hct 31.9 L (39.0-53.0) % MCV 88.8 (80.0-100.0) fL MCH 27.9 (25.0-35.0) pg MCHC 31.5 (31.0-37.0) g/dL RDW 16.6 H (11.5-15.5) % Plt Count 385 (150-450) k/uL Neutrophils % 91 % Lymphocytes % 5 % Monocytes % 2 % Eosinophils % 1 % Basophils % 0 % Neutrophils # 8.7 H (1.3-7.7) k/uL Lymphocytes # 0.5 L (1.0-4.8) k/uL Monocytes # 0.2 (0-1.0) k/uL Eosinophils # 0.1 (0-0.7) k/uL Basophils # 0.0 (0-0.2) k/uL Hypochromasia Marked Poikilocytosis Moderate Anisocytosis Slight PT (9.0-12.0) sec INR (<1.2) APTT (22.0-30.0) sec Sodium 138 (137-145) mmol/L Potassium 4.5 (3.5-5.1) mmol/L Chloride 102 (98-107) mmol/L Carbon Dioxide 26 (22-30) mmol/L Anion Gap 10 mmol/L BUN 19 (9-20) mg/dL Creatinine 0.73 (0.66-1.25) mg/dL Est GFR (CKD-EPI)AfAm >90 (>60 ml/min/1.73 sqM) Est GFR (CKD-EPI)NonAf >90 (>60 ml/min/1.73 sqM) Glucose 123 H (74-99) mg/dL Calcium 9.1 (8.4-10.2) mg/dL Magnesium 2.0 (1.6-2.3) mg/dL Total Bilirubin 0.7 (0.2-1.3) mg/dL AST 31 (17-59) U/L ALT 60 (21-72) U/L Alkaline Phosphatase 93 (38-126) U/L CK-MB (CK-2) 2.5 H (0.0-2.4) ng/mL Troponin I 0.050 H* (0.000-0.034) ng/mL Total Protein 5.8 L (6.3-8.2) g/dL Albumin 3.2 L (3.5-5.0) g/dL TSH 2.060 (0.465-4.680) mIU/L 10/23/18 Range/Units 19:05 WBC (3.8-10.6) k/uL RBC (4.30-5.90) m/uL Hgb (13.0-17.5) gm/dL Hct (39.0-53.0) % MCV (80.0-100.0) fL MCH (25.0-35.0) pg MCHC (31.0-37.0) g/dL RDW (11.5-15.5) % Plt Count (150-450) k/uL Neutrophils % % Lymphocytes % % Monocytes % % Eosinophils % % Basophils % % Neutrophils # (1.3-7.7) k/uL Lymphocytes # (1.0-4.8) k/uL Monocytes # (0-1.0) k/uL Eosinophils # (0-0.7) k/uL Basophils # (0-0.2) k/uL Hypochromasia Poikilocytosis Anisocytosis PT 10.5 (9.0-12.0) sec INR 1.0 (<1.2) APTT 21.6 L (22.0-30.0) sec Sodium (137-145) mmol/L Potassium (3.5-5.1) mmol/L Chloride (98-107) mmol/L Carbon Dioxide (22-30) mmol/L Anion Gap mmol/L BUN (9-20) mg/dL Creatinine (0.66-1.25) mg/dL Est GFR (CKD-EPI)AfAm (>60 ml/min/1.73 sqM) Est GFR (CKD-EPI)NonAf (>60 ml/min/1.73 sqM) Glucose (74-99) mg/dL Calcium (8.4-10.2) mg/dL Magnesium (1.6-2.3) mg/dL Total Bilirubin (0.2-1.3) mg/dL AST (17-59) U/L ALT (21-72) U/L Alkaline Phosphatase (38-126) U/L CK-MB (CK-2) (0.0-2.4) ng/mL Troponin I (0.000-0.034) ng/mL Total Protein (6.3-8.2) g/dL Albumin (3.5-5.0) g/dL TSH (0.465-4.680) mIU/L Disposition Clinical Impression: Atrial flutter Disposition: ADMITTED IP TO THIS HOSP Condition: Fair Referrals: Elvis Don MD [Primary Care Provider] - 1-2 days Decision Time: 20:55
[2018-10-23 19:22] LABS: Anisocytosis Slight; Basophils % (A) 0 %; Eosinophils # (A) 0.1 k/uL (0-0.7); Eosinophils % (A) 1 %; HCT 31.9 % (39.0-53.0); Hypochromasia Marked; Lymphocytes # (A) 0.5 k/uL (1.0-4.8); Lymphocytes % (A) 5 %; MCH 27.9 pg (25.0-35.0); MCHC 31.5 g/dL (31.0-37.0); MCV 88.8 fL (80.0-100.0); Mean Platelet Volume 7.3; Monocytes # (A) 0.2 k/uL (0-1.0); Monocytes % (A) 2 %; Neutrophils # (A) 8.7 k/uL (1.3-7.7); Neutrophils % (A) 91 %; Platelet Count 385 k/uL (150-450); Poikilocytosis Moderate; RDW 16.6 % (11.5-15.5); WBC 9.5 k/uL (3.8-10.6)
[2018-10-23 19:29] LABS: Prothrombin Time 10.5 sec (9.0-12.0)
[2018-10-23 19:34] LABS: ALT 60 U/L (21-72); AST 31 U/L (17-59); Albumin 3.2 g/dL (3.5-5.0); Alkaline Phosphatase 93 U/L (38-126); Anion Gap 10 mmol/L; Blood Urea Nitrogen 19 mg/dL (9-20); Calcium 9.1 mg/dL (8.4-10.2); Carbon Dioxide 26 mmol/L (22-30); Chloride 102 mmol/L (98-107); Glucose 123 mg/dL (74-99); Potassium 4.5 mmol/L (3.5-5.1); Sodium 138 mmol/L (137-145); Total Bilirubin 0.7 mg/dL (0.2-1.3); Total Protein 5.8 g/dL (6.3-8.2)
[2018-10-23 19:36] LABS: Partial Thromboplastin Time 21.6 sec (22.0-30.0)
[2018-10-23 19:46] LABS: Creatine Kinase MB 2.5 ng/mL (0.0-2.4)
[2018-10-23 19:47] LABS: Troponin I 0.05 ng/mL (0.000-0.034)
--- NOTE | 2018-10-23 20:08 | XR ---
EXAMINATION TYPE: XR chest 2V DATE OF EXAM: 10/23/2018 COMPARISON: Yesterday HISTORY: Postop sternal reconstruction TECHNIQUE: Frontal and lateral views of the chest are obtained. FINDINGS: There is a plate with screws fixing the sternum. There is slight blunting of costophrenic angles. There is linear density at the lung bases. There is no heart failure. There are chest leads. IMPRESSION: Patchy atelectasis and pleural reaction at the lung bases unchanged compared to yesterda y. No heart failure. No pneumothorax.
[2018-10-23] MEDS ORDERED: DEXTROSE 5% IN WATER 100 ML with AMIODARONE 150 MG IV ONE (20:13)
[2018-10-23] MEDS ORDERED: DILTIAZEM 5 MG/ML 5 ML VIAL IVP STA (20:49)
[2018-10-23] MEDS ORDERED: niCARdipine 20 MG in SODIUM CHLORIDE 0.9% 192 ML IV ONE (20:49)
[2018-10-23] MEDS ORDERED: NALOXONE 0.4 MG/ML 1 ML VIAL IV PRN (20:56)
[2018-10-23] MEDS ORDERED: NITROGLYCERIN SL TABS 0.4 MG TAB SUBLINGUAL PRN (20:58)
[2018-10-23] MEDS: ATORVASTATIN 20 MG TAB PO SCH (21:46)
[2018-10-23] MEDS: SODIUM CHLORIDE 0.9% 1,000 ML IV SCH (21:48)
[2018-10-23] MEDS: METOPROLOL TARTRATE 25 MG TAB PO SCH (21:57)
[2018-10-23] MEDS: AMOXIC-POT CLAV 875-125MG 1 EACH TAB PO SCH (22:00)
[2018-10-23] MEDS ORDERED: DILTIAZEM 125 MG in SODIUM CHLORIDE 0.9% 100 ML IV SCH (22:00)
[2018-10-23] MEDS ORDERED: AMIODARONE 100 MG TAB PO STA (23:17)
[2018-10-24] MEDS ORDERED: ACETAMINOPHEN TAB 325 MG TAB PO PRN (00:30)
[2018-10-24 05:56] LABS: Glucose,Whole Blood 110 mg/dL (75-99)
[2018-10-24] MEDS: INSULIN ASPART (NovoLOG) 100 UNIT/ML VIAL SQ SCH ×4 (06:43→20:37)
[2018-10-24] MEDS: AMIODARONE 200 MG TAB PO SCH ×2 (08:43→20:25)
[2018-10-24] MEDS: metFORMIN 500 MG TAB PO SCH ×2 (08:43→17:21)
[2018-10-24] MEDS: AMOXIC-POT CLAV 875-125MG 1 EACH TAB PO SCH ×2 (08:43→20:25)
[2018-10-24] MEDS: ASPIRIN 81 MG PO SCH (08:43)
[2018-10-24] MEDS: METOPROLOL TARTRATE 25 MG TAB PO SCH ×2 (08:43→20:25)
[2018-10-24] MEDS: APIXABAN 5 MG TAB PO SCH ×2 (08:58→20:25)
[2018-10-24] MEDS ORDERED: AMIODARONE 200 MG TAB PO SCH (09:00)
--- NOTE | 2018-10-24 10:02 | P.CRDCN ---
<Connie Feldman E - Last Filed: 10/24/18 09:52> History of Present Illness Consult date: 10/24/18 Requesting physician: Yovani Marsh Consult reason: atrial flutter Chief complaint: Rapid heartbeat History of present illness: This is a pleasant 68-year-old gentleman who was just recently in the hospital, underwent coronary artery bypass grafting surgery with aortic valve replacement, also underwent a redo sternotomy due to fluid collection. Patient had been discharged, overall he states he been feeling quite well, was at rehab, evaluated by Dr. Don who noticed that his heart rate was quite fast and irre gular. For this reason he was advised to come back to the hospital for further evaluation. Patient's anticoagulation prior to discharge had been placed on hold. Chest x-ray on this admission showed patchy atelectasis and pleural reaction at the lung bases unchanged as compared with x-ray performed the day prior. His EKG showed atrial flutter with a rapid ventricular response. Blood pressure 100/70, heart rate in the 120 to 1:30 range, respirations 20. Afebrile. White blood cell count 9.5, hemoglobin 10.0, platelet count 385. Sodium 138, potassium 4.5, BUN 19 and creatinine 0.7. Magnesium level 2.0, troponin 0.050, TSH 2.0. At the time of my examination this morning, patient is sitting up in his chair at bedside. Overall he feels well, no complaints, denies any palpitations, no dizziness or lightheadedness, breathing is stable. Patient was given 150 mg of IV amiodarone, he is currently on 400 mg by mouth twice a day as directed by Dr. Messina. He has also this morning been resumed on his Eliquis at 5 mg one tablet by mouth twice a day, aspirin 81 mg daily, Lipitor 20 mg daily, he is on a Cardizem drip currently at 5 mg per hour, metoprolol 75 mg one tablet by mouth twice a day. He continues to be in an atrial flutter his heart rate this morning is in the 70s. We will discontinue the IV Cardizem drip. Past Medical History Past Medical History: Coronary Artery Disease (CAD), COPD, Hyperlipidemia, Hypertension Additional Past Medical History / Comment(s): Coronary artery disease and previous history of Bicuspid aortic valve with moderate to severe aortic valve stenosis with a peak gradient of 60 mmHg and a mean gradient of 30 mmHg across the aortic valve and moderate aortic valve regurgitation. The patient underwent coronary artery bypass surgery and aortic valve replacement with a prosthetic valve, Morbid obesity with a BMI of 42.9 kg/m, COPD, hyperlipidemia, hypertension, diabetes mellitus History of Any Multi-Drug Resistant Organisms: None Reported Past Surgical History: Cardiac Valve Replacement, Coronary Bypass/CABG, Heart Catheterization, Orthopedic Surgery Additional Past Surgical History / Comment(s): ORIF LEFT ANKLE, LACERATION REPAIR OF LEFT FOREARM,RT BREAST I&D, on 09/24/2018 patient underwent a triple- vessel coronary artery bypass grafting using the left internal mammary artery to left anterior setting coronary artery, a reverse greater saphenous vein graft from the aorta to the first diagonal coronary artery, a reverse greater saphenous vein graft from the aorta to the first obtuse marginal coronary artery, and aortic valve replacement using a #27 mm pericardial bioprosthesis magna ease and exclusion of his left atrial appendage using a 40 mm Atriclip. Past Anesthesia/Blood Transfusion Reactions: No Reported Reaction Additional Past Anesthesia/Blood Transfusion Reaction / Comment(s): hx no blood transfusion Past Psychological History: No Psychological Hx Reported Additional Psychological History / Comment(s): Pt resides with his spouse. He uses no assistive device. He has [facility] home care d/t recent CABG/AVR. He is not currently driving d/t this recent surgery. Smoking Status: Former smoker Past Alcohol Use History: None Reported Additional Past Alcohol Use History / Comment(s): Patient was smoker of 2 packs per day for 20 years about 5 years ago. He denies any marijuana or street drug or alcohol use. He worked in the past in an [employer]. He is currently living with his ex-. No pets in the home. Past Drug Use History: None Reported - Past Family History Mother Family Medical History: Cancer Additional Family Medical History / Comment(s): LUNG CANCER Father Family Medical History: No Reported History Medications and Allergies Home Medications Medication Instructions Recorded Confirmed Type Cholecalciferol [Vitamin D3] 2,000 unit PO DAILY@0900 08/12/18 10/23/18 History Acetaminophen Tab [Tylenol] 650 mg PO Q6HR PRN 10/08/18 10/23/18 History Nitroglycerin Sl Tabs [Nitrostat] 0.4 mg SUBLINGUAL Q5M PRN tab 10/11/18 10/23/18 Rx Aspirin 81 mg PO DAILY@0900 10/14/18 10/23/18 History Ipratropium-Albuterol Nebulize 3 ml INHALATION RT-Q8H 10/14/18 10/23/18 History [Duoneb 0.5 mg-3 mg/3 ml Soln] Pantoprazole [Protonix] 40 mg PO AC-BRKFST@0600 10/14/18 10/23/18 History Sennosides [Senokot] 8.6 mg PO DAILY@0900 10/14/18 10/23/18 History metFORMIN HCL [Glucophage] 500 mg PO BID@0900,1700 10/14/18 10/23/18 History Amoxic-Pot Clav 875-125Mg 1 tab PO Q12HR #10 tablet 10/22/18 10/23/18 Rx [Augmentin 875-125] Lisinopril [Zestril] 2.5 mg PO DAILY@1200 tab 10/22/18 10/23/18 Rx Amiodarone [Cordarone] 200 mg PO DAILY@0900 10/23/18 10/23/18 History Apixaban [Eliquis] 5 mg PO DIRECTED 10/23/18 10/23/18 History Atorvastatin [Lipitor] 20 mg PO HS@2100 10/23/18 10/23/18 History Furosemide [Lasix] 40 mg PO DAILY@0600 10/23/18 10/23/18 History INSULIN LISPRO (HumaLOG) [HumaLOG] See Protocol SQ ACHS 10/23/18 10/23/18 History Metoprolol Tartrate [Lopressor] 75 mg PO BID@0900,2100 10/23/18 10/23/18 History Potassium Chloride ER [K-Dur 10] 10 meq PO DAILY@0900 10/23/18 10/23/18 History predniSONE 40 mg PO DAILY@0900 10/23/18 10/23/18 History Allergies Allergy/AdvReac Type Severity Reaction Status Date / Time No Known Allergies Allergy Verified 10/23/18 18:56 Physical Exam Vitals: Vital Signs Temp Pulse Pulse Resp BP BP Pulse Ox 10/24/18 03:50 120 H 20 10/24/18 00:45 116 H 10/24/18 00:30 97.5 F L 122 H 20 100/70 98 10/24/18 00:00 72 18 10/23/18 23:55 97.5 F L 140 H 19 100/70 98 10/23/18 23:34 97.6 F 130 H 18 111/84 98 10/23/18 23:04 142 H 19 84/66 96 10/23/18 22:44 151 H 20 90/77 98 10/23/18 22:32 149 H 21 90/64 98 10/23/18 21:55 111 H 20 98/81 97 10/23/18 21:46 149 H 18 116/94 96 10/23/18 20:04 144 H 18 102/77 96 10/23/18 18:50 97.8 F 149 H 20 128/60 94 L Intake and Output 10/23/18 10/24/18 10/24/18 22:59 06:59 14:59 Intake Total 100 Output Total 800 Balance -700 Intake: Intake, IV Titration 100 Amount Diltiazem 125 mg In 20 Sodium Chloride 0.9% 100 ml @ 5 MG/HR 5 mls/hr IV .Q24H [facility] Rx#:[id number] Sodium Chloride 0.9% 1, 80 000 ml @ 20 mls/hr IV . Q24H [facility] Rx#:[id number] Output: Urine 800 Other: Voiding Method Urinal Weight 118.841 kg 118.2 kg GENERAL EXAM: Alert, active, comfortable in no apparent distress. HEAD: Normocephalic/atraumatic. EYES: Normal reaction of pupils, equal size. Conjunctiva pink, sclera white. NOSE: Clear with pink turbinates. THROAT: No erythema or exudates. NECK: No masses, no JVD, no thyroid enlargement, no adenopathy. CHEST: No chest wall deformity. Symmetrical expansion. Midsternal incision is clean dry and intact, dressing has been removed, incision is clean dry and intact, approximated, sternum stable, chest brace in place LUNGS: Equal air entry with diminished breath sounds at the bases CVS: Heart S1 and S2 irregularly irregular , systolic murmur heard ABDOMEN: Soft, nontender. No hepatosplenomegaly, normal bowel sounds, no guarding or rigidity. EXTREMITIES: No clubbing, 2+ bipedal edema, no cyanosis, 2+ pulses and upper and lower extremities. MUSCULOSKELETAL: Muscle strength and tone normal. SPINE: No scoliosis or deformity SKIN: No rashes CENTRAL NERVOUS SYSTEM: Alert and oriented -3. No focal deficits, tone is normal in all 4 extremities. PSYCHIATRIC: Alert and oriented -3. Appropriate affect. Intact judgment and insight. Results 10/23/18 19:05 10/23/18 19:05 Cardiac Enzymes 10/23/18 10/23/18 Range/Units 19:05 19:05 AST 31 (17-59) U/L CK-MB (CK-2) 2.5 H (0.0-2.4) ng/mL Troponin I 0.050 H* (0.000-0.034) ng/mL Coagulation 10/23/18 Range/Units 19:05 PT 10.5 (9.0-12.0) sec APTT 21.6 L (22.0-30.0) sec CBC 10/23/18 Range/Units 19:05 WBC 9.5 (3.8-10.6) k/uL RBC 3.60 L (4.30-5.90) m/uL Hgb 10.0 L (13.0-17.5) gm/dL Hct 31.9 L (39.0-53.0) % Plt Count 385 (150-450) k/uL Comprehensive Metabolic Panel 10/23/18 Range/Units 19:05 Sodium 138 (137-145) mmol/L Potassium 4.5 (3.5-5.1) mmol/L Chloride 102 (98-107) mmol/L Carbon Dioxide 26 (22-30) mmol/L BUN 19 (9-20) mg/dL Creatinine 0.73 (0.66-1.25) mg/dL Glucose 123 H (74-99) mg/dL Calcium 9.1 (8.4-10.2) mg/dL AST 31 (17-59) U/L ALT 60 (21-72) U/L Alkaline Phosphatase 93 (38-126) U/L Total Protein 5.8 L (6.3-8.2) g/dL Albumin 3.2 L (3.5-5.0) g/dL Current Medications Generic Name Dose Route Start Last Admin Trade Name Freq PRN Reason Stop Dose Admin Acetaminophen 650 mg 10/24/18 00:30 Tylenol Tab PO Q4HR PRN Fever and/ or Pain Amiodarone HCl 400 mg 10/24/18 09:00 10/24/18 08:43 Cordarone PO 400 mg BID [facility] Administration Amoxicillin/Clavulanate Potassium 1 each 10/23/18 21:00 10/24/18 08:43 Augmentin 875-125 PO 10/26/18 23:59 1 each Q12HR [facility] Administration Apixaban 5 mg 10/24/18 09:00 10/24/18 08:58 Eliquis PO 5 mg BID [facility] Administration Aspirin 81 mg 10/24/18 09:00 10/24/18 08:43 Aspirin PO 81 mg DAILY@0900 [facility] Administration Atorvastatin Calcium 20 mg 10/23/18 21:00 10/23/18 21:46 Lipitor PO 20 mg HS@2100 [facility] Administration Sodium Chloride 1,000 mls @ 20 mls/hr 10/23/18 21:00 10/23/18 21:48 Saline 0.9% IV 20 mls/hr .Q24H [facility] Administration Diltiazem HCl 125 mg/ Sodium 125 mls @ 5 mls/hr 10/23/18 22:00 10/23/18 22:11 Chloride IV 5 mg/hr .Q24H [facility] 5 mls/hr Administration 5 MG/HR Insulin Aspart 0 unit 10/24/18 07:30 10/24/18 06:43 Novolog SQ Not Given ACHS [facility] Protocol Metformin HCl 500 mg 10/24/18 09:00 10/24/18 08:43 Glucophage PO 500 mg BID@0900,1700 [facility] Administration Metoprolol Tartrate 75 mg 10/23/18 21:00 10/24/18 08:43 Lopressor PO 75 mg BID@0900,2100 [facility] Administration Naloxone HCl 0.2 mg 10/23/18 20:56 Narcan IV Q2M PRN Opioid Reversal Nitroglycerin 0.4 mg 10/23/18 20:58 Nitrostat SUBLINGUAL Q5M PRN Chest Pain Intake and Output 10/23/18 10/24/18 10/24/18 22:59 06:59 14:59 Intake Total 100 Output Total 800 Balance -700 Intake: Intake, IV Titration 100 Amount Diltiazem 125 mg In 20 Sodium Chloride 0.9% 100 ml @ 5 MG/HR 5 mls/hr IV .Q24H [facility] Rx#:[id number] Sodium Chloride 0.9% 1, 80 000 ml @ 20 mls/hr IV . Q24H [facility] Rx#:[id number] Output: Urine 800 Other: Voiding Method Urinal Weight 118.841 kg 118.2 kg 10/23/18 19:05 10/23/18 19:05 EKG Interpretations (text) EKG shows atrial flutter with a rapid ventricular response Assessment and Plan Plan: Assessment and plan #1 typical atrial flutter with rapid ventricular response #2 recent coronary bypass grafting surgery and aortic valve replacement, with a redo sternotomy #3 paroxysmal atrial flutter #4 COPD #5 hypertension #6 hyperlipidemia #7 diabetes Plan TSH level was normal. Patient was given one dose of IV amiodarone 150 mg in the emergency room, we will continue 400 mg by mouth twice a day of oral amiodarone. Discontinue IV Cardizem drip. Patient has also been resumed on Eliquis 5 mg one tablet by mouth twice a day for anticoagulation. Continue beta misbah. DNP note has been reviewed, I agree with a documented findings and plan of care. Patient was seen and examined. <Andres Messina - Last Filed: 10/24/18 19:32> History of Present Illness History of present illness: Atrial flutter despite 200 mg by mouth daily of amiodarone RVR Symptomatic Consider FAISAL and electrical cardioversion after starting ELIQUIS Physical Exam Vitals: Vital Signs Temp Pulse Pulse Resp BP BP Pulse Ox 10/24/18 17:05 88 10/24/18 16:56 73 20 125/74 95 10/24/18 16:50 90 100 10/24/18 08:00 97.4 F L 102 H 20 93/55 94 L 10/24/18 03:50 120 H 20 10/24/18 00:45 116 H 10/24/18 00:30 97.5 F L 122 H 20 100/70 98 10/24/18 00:00 72 18 10/23/18 23:55 97.5 F L 140 H 19 100/70 98 10/23/18 23:34 97.6 F 130 H 18 111/84 98 10/23/18 23:04 142 H 19 84/66 96 10/23/18 22:44 151 H 20 90/77 98 10/23/18 22:32 149 H 21 90/64 98 10/23/18 21:55 111 H 20 98/81 97 10/23/18 21:46 149 H 18 116/94 96 10/23/18 20:04 144 H 18 102/77 96 Intake and Output 10/24/18 10/24/18 10/24/18 06:59 14:59 22:59 Intake Total 100 260 Output Total 800 Balance -700 260 Intake: Intake, IV Titration 100 20 Amount Diltiazem 125 mg In 20 Sodium Chloride 0.9% 100 ml @ 5 MG/HR 5 mls/hr IV .Q24H [facility] Rx#:[id number] Sodium Chloride 0.9% 1, 80 20 000 ml @ 20 mls/hr IV . Q24H [facility] Rx#:[id number] Oral 240 Output: Urine 800 Other: Voiding Method Urinal # Voids 2 Weight 118.2 kg 117.7 kg Results 10/23/18 19:05 10/23/18 19:05 Cardiac Enzymes 10/23/18 10/23/18 Range/Units 19:05 19:05 AST 31 (17-59) U/L CK-MB (CK-2) 2.5 H (0.0-2.4) ng/mL Troponin I 0.050 H* (0.000-0.034) ng/mL Coagulation 10/23/18 Range/Units 19:05 PT 10.5 (9.0-12.0) sec APTT 21.6 L (22.0-30.0) sec Comprehensive Metabolic Panel 10/23/18 Range/Units 19:05 Sodium 138 (137-145) mmol/L Potassium 4.5 (3.5-5.1) mmol/L Chloride 102 (98-107) mmol/L Carbon Dioxide 26 (22-30) mmol/L BUN 19 (9-20) mg/dL Creatinine 0.73 (0.66-1.25) mg/dL Glucose 123 H (74-99) mg/dL Calcium 9.1 (8.4-10.2) mg/dL AST 31 (17-59) U/L ALT 60 (21-72) U/L Alkaline Phosphatase 93 (38-126) U/L Total Protein 5.8 L (6.3-8.2) g/dL Albumin 3.2 L (3.5-5.0) g/dL Current Medications Generic Name Dose Route Start Last Admin Trade Name Freq PRN Reason Stop Dose Admin Acetaminophen 650 mg 10/24/18 00:30 Tylenol Tab PO Q4HR PRN Fever and/ or Pain Albuterol/Ipratropium 3 ml 10/24/18 16:00 10/24/18 16:49 Duoneb 0.5 Mg-3 Mg/3 Ml Soln INHALATION 3 ml RT-Q8H [facility] Administration Amiodarone HCl 400 mg 10/24/18 09:00 10/24/18 08:43 Cordarone PO 400 mg BID [facility] Administration Amoxicillin/Clavulanate Potassium 1 each 10/23/18 21:00 10/24/18 08:43 Augmentin 875-125 PO 10/26/18 23:59 1 each Q12HR [facility] Administration Apixaban 5 mg 10/24/18 09:00 10/24/18 08:58 Eliquis PO 5 mg BID [facility] Administration Aspirin 81 mg 10/24/18 09:00 10/24/18 08:43 Aspirin PO 81 mg DAILY@0900 [facility] Administration Atorvastatin Calcium 20 mg 10/23/18 21:00 10/23/18 21:46 Lipitor PO 20 mg HS@2100 [facility] Administration Cholecalciferol 2,000 unit 10/25/18 09:00 Vitamin D3 PO DAILY@0900 [facility] Furosemide 40 mg 10/25/18 06:00 Lasix PO DAILY@0600 [facility] Sodium Chloride 1,000 mls @ 20 mls/hr 10/23/18 21:00 10/23/18 21:48 Saline 0.9% IV 20 mls/hr .Q24H [facility] Administration Sodium Chloride 1,000 mls @ 20 mls/hr 10/24/18 12:15 10/24/18 15:52 Saline 0.9% IV Not Given .Q24H [facility] Insulin Aspart 0 unit 10/24/18 07:30 10/24/18 17:14 Novolog SQ Not Given [facility] Protocol Lisinopril 2.5 mg 10/24/18 12:00 10/24/18 16:03 Zestril PO 2.5 mg DAILY@1200 [facility] Administration Metformin HCl 500 mg 10/24/18 09:00 10/24/18 17:21 Glucophage PO 500 mg BID@0900,1700 [facility] Administration Metoprolol Tartrate 75 mg 10/23/18 21:00 10/24/18 08:43 Lopressor PO 75 mg BID@0900,2100 [facility] Administration Naloxone HCl 0.2 mg 10/23/18 20:56 Narcan IV Q2M PRN Opioid Reversal Nitroglycerin 0.4 mg 10/23/18 20:58 Nitrostat SUBLINGUAL Q5M PRN Chest Pain Pantoprazole Sodium 40 mg 10/25/18 06:00 Protonix PO AC-BRKFST@0600 [facility] Potassium Chloride 10 meq 10/25/18 09:00 K-Dur 10 PO DAILY@0900 [facility] Prednisone 40 mg 10/25/18 09:00 PO DAILY@0900 [facility] Senna 8.6 mg 10/25/18 09:00 Senokot PO DAILY@0900 [facility] Intake and Output 10/24/18 10/24/18 10/24/18 06:59 14:59 22:59 Intake Total 100 260 Output Total 800 Balance -700 260 Intake: Intake, IV Titration 100 20 Amount Diltiazem 125 mg In 20 Sodium Chloride 0.9% 100 ml @ 5 MG/HR 5 mls/hr IV .Q24H [facility] Rx#:[id number] Sodium Chloride 0.9% 1, 80 20 000 ml @ 20 mls/hr IV . Q24H [facility] Rx#:[id number] Oral 240 Output: Urine 800 Other: Voiding Method Urinal # Voids 2 Weight 118.2 kg 117.7 kg Patient Weight 10/25/18 06:59 Weight 117.7 kg 10/23/18 19:05 10/23/18 19:05
--- NOTE | 2018-10-24 10:37 | P.GSCN ---
History of Present Illness Consult date: 10/24/18 Reason for Consult: Recurrent atrial flutter, patient known to us. Requesting physician: Ronnie Taylor History of present illness: This is a 68-year-old gentleman who follows with Dr. Don on an outpatient basis. He has a previous medical history of recent readmission for mechanical obstruction of the sternum with drainage of hematoma and reconstruction of the sternum using Tritium plating system with postoperative acute blood loss anemia. Previous medical history of bicuspid aortic valve with moderate to severe aortic stenosis status post aortic valve replacement with 27 mm magna ease pericardial bioprosthesis, coronary artery disease with left main disease status post triple coronary artery bypass graft surgery, chronic diastolic dysfunction, hypertension, hyperlipidemia, morbid obesity, previous tobacco dependence, and mild COPD with FEV1 64% of predicted. He was discharged on 10/22/2018 [facility] to [facility] for subacute rehab after his second readmission since surgery. Upon discharge from the hospital the patient was in normal sinus rhythm with stable blood pressure, he was discharged on amiodarone 200 mg daily, Lopressor 75 mg twice daily, as well as daily Lasix, antibiotics, and steroids. His Eliquis had been stopped due to concern for any oozing from the sternal site. He was back at [facility] for only about 24 hours when he was discovered to have an elevated heart rate with irregular heart rhythm. For this reason he was brought back to [facility] per his primary care physician. In the emergency room he was in no acute distress. Chest x-ray demonstrated atelectasis without overt heart failure. Lab work was essentially unremarkable, in fact hemoglobin is continuing to improve. Patient was started on IV Cardizem as well as bolused with IV amiodarone. His oral amiodarone was increased to [address] Messina. He was admitted to [address] [place] [address] cardiac stepdown unit for evaluation and treatment with consults placed to cardiology and Dr. Enriquez from cardiothoracic surgery. Review of Systems Review of systems was completed and was negative except as noted in the HPI. Past Medical History Past Medical History: Atrial Flutter, Coronary Artery Disease (CAD), Heart Failure, COPD, Diabetes Mellitus, Hyperlipidemia, Hypertension Additional Past Medical History / Comment(s): history of Bicuspid aortic valve with moderate to severe aortic valve stenosis and aortic valve regurgitation. Morbid obesity History of Any Multi-Drug Resistant Organisms: None Reported Past Surgical History: Cardiac Valve Replacement, Coronary Bypass/CABG, Heart Catheterization, Orthopedic Surgery Additional Past Surgical History / Comment(s): ORIF LEFT ANKLE, LACERATION REPAIR OF LEFT FOREARM,RT BREAST I&D, triple-vessel coronary artery bypass grafting and bioprosthetic aortic valve replacement 09/24/2018, drainage of hematoma and reconstruction of sternum 10/15/2018 Past Anesthesia/Blood Transfusion Reactions: No Reported Reaction Additional Past Anesthesia/Blood Transfusion Reaction / Comm: hx no blood transfusion Past Psychological History: No Psychological Hx Reported Additional Psychological History / Comment(s): Pt resides with his spouse. He uses no assistive device. He is not currently driving d/t this recent surgery. Smoking Status: Former smoker Past Alcohol Use History: None Reported Additional Past Alcohol Use History / Comment(s): Patient was smoker of 2 packs per day for 20 years about 5 years ago. He denies any marijuana or street drug or alcohol use. He worked in the past in an [employer]. He is currently living with his ex-. No pets in the home. Past Drug Use History: None Reported - Past Family History Mother Family Medical History: Cancer Additional Family Medical History / Comment(s): LUNG CANCER Father Family Medical History: No Reported History Medications and Allergies Home Medications Medication Instructions Recorded Confirmed Type Cholecalciferol [Vitamin D3] 2,000 unit PO DAILY@0900 08/12/18 10/23/18 History Acetaminophen Tab [Tylenol] 650 mg PO Q6HR PRN 10/08/18 10/23/18 History Nitroglycerin Sl Tabs [Nitrostat] 0.4 mg SUBLINGUAL Q5M PRN tab 10/11/18 10/23/18 Rx Aspirin 81 mg PO DAILY@0900 10/14/18 10/23/18 History Ipratropium-Albuterol Nebulize 3 ml INHALATION RT-Q8H 10/14/18 10/23/18 History [Duoneb 0.5 mg-3 mg/3 ml Soln] Pantoprazole [Protonix] 40 mg PO AC-BRKFST@0600 10/14/18 10/23/18 History Sennosides [Senokot] 8.6 mg PO DAILY@0900 10/14/18 10/23/18 History metFORMIN HCL [Glucophage] 500 mg PO BID@0900,1700 10/14/18 10/23/18 History Amoxic-Pot Clav 875-125Mg 1 tab PO Q12HR #10 tablet 10/22/18 10/23/18 Rx [Augmentin 875-125] Lisinopril [Zestril] 2.5 mg PO DAILY@1200 tab 10/22/18 10/23/18 Rx Amiodarone [Cordarone] 200 mg PO DAILY@0900 10/23/18 10/23/18 History Apixaban [Eliquis] 5 mg PO DIRECTED 10/23/18 10/23/18 History Atorvastatin [Lipitor] 20 mg PO HS@2100 10/23/18 10/23/18 History Furosemide [Lasix] 40 mg PO DAILY@0600 10/23/18 10/23/18 History INSULIN LISPRO (HumaLOG) [HumaLOG] See Protocol SQ ACHS 10/23/18 10/23/18 H istory Metoprolol Tartrate [Lopressor] 75 mg PO BID@0900,2100 10/23/18 10/23/18 History Potassium Chloride ER [K-Dur 10] 10 meq PO DAILY@0900 10/23/18 10/23/18 History predniSONE 40 mg PO DAILY@0900 10/23/18 10/23/18 History Allergies Allergy/AdvReac Type Severity Reaction Status Date / Time No Known Allergies Allergy Verified 10/23/18 18:56 Surgical - Exam Vital Signs Temp Pulse Resp BP Pulse Ox 97.8 F 149 H 20 128/60 94 L 10/23/18 18:50 10/23/18 18:50 10/23/18 18:50 10/23/18 18:50 10/23/18 18:50 - General well developed, well nourished, no distress, no pain, obese - Eyes PERRL, normal ocular movement - ENT no hearing loss - Neck no masses, no bruits, trachea midline - Respiratory Lungs sounds diminished bilaterally. Respirations even, nonlabored. Currently on room air with oxygen saturation 94%. - Cardiovascular S1, S2 present. Irregularly irregular tachycardic rate and rhythm, atrial flutter with rapid ventricular response on telemetry. Sternum stable. Palpable peripheral pulses bilaterally. Bilateral lower extremity edema present. No calf pain or tenderness noted. Heart hugger in place with patient demonstrating appropriate use. SCDs present. - Abdomen Abdomen: soft, non tender, bowel sounds - Genitourinary Deferred - Rectum Deferred - Integumentary Skin is warm and dry with evidence of good perfusion. Anterior chest incision well approximated and open to air. Right lower extremity EVH site well approximated without drainage. - Neurologic normal coordination, normal sensation - Musculoskeletal normal posture - Psychiatric oriented to time, oriented to person, oriented to place, speech is normal, memory intact Results - Labs 10/23/18 19:05 10/23/18 19:05 Abnormal Lab Results - Last 24 Hours (Table) 10/23/18 10/23/18 10/23/18 Range/Units 19:05 19:05 19:05 RBC 3.60 L (4.30-5.90) m/uL Hgb 10.0 L (13.0-17.5) gm/dL Hct 31.9 L (39.0-53.0) % RDW 16.6 H (11.5-15.5) % Neutrophils # 8.7 H (1.3-7.7) k/uL Lymphocytes # 0.5 L (1.0-4.8) k/uL APTT (22.0-30.0) sec Glucose 123 H (74-99) mg/dL POC Glucose (mg/dL) (75-99) mg/dL CK-MB (CK-2) 2.5 H (0.0-2.4) ng/mL Troponin I 0.050 H* (0.000-0.034) ng/mL Total Protein 5.8 L (6.3-8.2) g/dL Albumin 3.2 L (3.5-5.0) g/dL 10/23/18 10/24/18 Range/Units 19:05 05:54 RBC (4.30-5.90) m/uL Hgb (13.0-17.5) gm/dL Hct (39.0-53.0) % RDW (11.5-15.5) % Neutrophils # (1.3-7.7) k/uL Lymphocytes # (1.0-4.8) k/uL APTT 21.6 L (22.0-30.0) sec Glucose (74-99) mg/dL POC Glucose (mg/dL) 110 H (75-99) mg/dL CK-MB (CK-2) (0.0-2.4) ng/mL Troponin I (0.000-0.034) ng/mL Total Protein (6.3-8.2) g/dL Albumin (3.5-5.0) g/dL Diabetes panel 10/23/18 Range/Units 19:05 Sodium 138 (137-145) mmol/L Potassium 4.5 (3.5-5.1) mmol/L Chloride 102 (98-107) mmol/L Carbon Dioxide 26 (22-30) mmol/L BUN 19 (9-20) mg/dL Creatinine 0.73 (0.66-1.25) mg/dL Glucose 123 H (74-99) mg/dL Calcium 9.1 (8.4-10.2) mg/dL AST 31 (17-59) U/L ALT 60 (21-72) U/L Alkaline Phosphatase 93 (38-126) U/L Total Protein 5.8 L (6.3-8.2) g/dL Albumin 3.2 L (3.5-5.0) g/dL Thyroid panel 10/23/18 Range/Units 19:05 TSH 2.060 (0.465-4.680) mIU/L Calcium panel 10/23/18 Range/Units 19:05 Calcium 9.1 (8.4-10.2) mg/dL Albumin 3.2 L (3.5-5.0) g/dL Pituitary panel 10/23/18 Range/Units 19:05 Sodium 138 (137-145) mmol/L Potassium 4.5 (3.5-5.1) mmol/L Chloride 102 (98-107) mmol/L Carbon Dioxide 26 (22-30) mmol/L BUN 19 (9-20) mg/dL Creatinine 0.73 (0.66-1.25) mg/dL Glucose 123 H (74-99) mg/dL Calcium 9.1 (8.4-10.2) mg/dL TSH 2.060 (0.465-4.680) mIU/L Adrenal panel 10/23/18 Range/Units 19:05 Sodium 138 (137-145) mmol/L Potassium 4.5 (3.5-5.1) mmol/L Chloride 102 (98-107) mmol/L Carbon Dioxide 26 (22-30) mmol/L BUN 19 (9-20) mg/dL Creatinine 0.73 (0.66-1.25) mg/dL Glucose 123 H (74-99) mg/dL Calcium 9.1 (8.4-10.2) mg/dL Total Bilirubin 0.7 (0.2-1.3) mg/dL AST 31 (17-59) U/L ALT 60 (21-72) U/L Alkaline Phosphatase 93 (38-126) U/L Total Protein 5.8 L (6.3-8.2) g/dL Albumin 3.2 L (3.5-5.0) g/dL - Imaging Chest x-ray: report reviewed, image reviewed EKG: image reviewed Assessment and Plan Assessment: 1. Recurrent atrial flutter 2. Recent admission for mechanical destruction of the sternum with drainage of hematoma and reconstruction of the sternum using Tritium plating system 10/15/2018 with postoperative acute blood loss anemia 3. History of bicuspid aortic valve with moderate to severe aortic stenosis status post aortic valve replacement 09/24/2018 4. History of coronary artery disease with left main disease status post triple coronary artery bypass graft surgery 09/24/2018 5. Chronic diastolic dysfunction 6. Hypertension 7. Hyperlipidemia 8. Morbid obesity 9. Previous tobacco dependence 10. Mild COPD with FEV1 64% of predicted Plan: The patient was seen and examined at the bedside with Dr. Enriquez. Chart/diagnostics were reviewed. Continue aspirin, statin, amiodarone, Lopressor. Agree with increasing amiodarone 400 mg daily. Will add Eliquis for anticoagulation. We will defer management of patient's heart rate and rhythm to cardiology. Heart hugger and surgical bra removed from patient, Thoravest fitted and placed on patient for better sternal support, cardiothoracic surgery should be contacted if there are any questions or concerns about Thoravest. Incentive spirometry ordered, encourage coughing and deep breathing. Increase activity, ambulate in hallway. PT/OT/cardiac rehab ordered. Will monitor labs and x-rays. Patient should get into the shower every day to keep incisions clean. Medical management of other comorbidities per primary care service. We will continue to follow. This consult. We look forward to continuing to be a part of this patient's medical care. Time with Patient: Greater than 30
[2018-10-24 12:01] LABS: Glucose,Whole Blood 104 mg/dL (75-99)
[2018-10-24] MEDS: SODIUM CHLORIDE 0.9% 1,000 ML IV SCH ×2 (15:52→21:00)
[2018-10-24] MEDS: LISINOPRIL 2.5 MG TAB PO SCH (16:03)
[2018-10-24] MEDS: IPRATROPIUM-ALBUTEROL 3 ML NEB INHALATION SCH (16:49)
[2018-10-24 17:13] LABS: Glucose,Whole Blood 104 mg/dL (75-99)
[2018-10-24] MEDS: ATORVASTATIN 20 MG TAB PO SCH (20:25)
[2018-10-24 20:34] LABS: Glucose,Whole Blood 114 mg/dL (75-99)
--- NOTE | 2018-10-24 21:31 | P.HPIM ---
History of Present Illness H&P Date: 10/24/18 Chief Complaint: Heart racing up fast Patient is a 68-year-old female with a known history of recent coronary artery bypass graft and aortic valve replacement on 09/24/2018 and also abdominal reconstruction due to fluid collection, hypertension, hyperlipidemia, chronic CHF with diastolic dysfunction is currently at cardiac rehab was brought to the hospital due to heart racing of fast and irregular. Patient was seen by Dr. Don at the rehab and was sent to ER. EKG showed atrial flutter with rapid ventricular rate. Patient was started on Cardizem drip. Chest x-ray showed patchy atelectasis and pleural reaction at the lung bases unchanged compared to recent x-ray. Troponin 0.05, TSH within normal limits Patient was given IV amiodarone and dose increased to 400 mg twice daily by cardiology. And patient is a patient with Eliquis 5 mg twice daily. Patient continues to be in atrial flutter. Review of Systems Constitutional: Patient denies any fever or chills . No generalized weakness or weight loss. Abdomen: Patient denied nausea vomiting and diarrhea and abdominal pain. Cardiovascular: Patient denies any chest pain or short of breath . Complains of heart racing of fast. Respiratory: patient denied any cough is from production. No shortness of breath Neurologic: Patient denied any numbness or tingling headache. Musculoskeletal: Patient denies any complaints of joint swelling or deformity. Skin: Negative Psychiatric: Negative Endocrine: No heat or cold intolerance. No recent weight gain. Genitourinary: No dysuria or hematuria. All other 14 point ROS negative except the above Past Medical History Past Medical History: Atrial Flutter, Coronary Artery Disease (CAD), Heart Failure, COPD, Diabetes Mellitus, Hyperlipidemia, Hypertension Additional Past Medical History / Comment(s): history of Bicuspid aortic valve with moderate to severe aortic valve stenosis and aortic valve regurgitation. Morbid obesity History of Any Multi-Drug Resistant Organisms: None Reported Past Surgical History: Cardiac Valve Replacement, Coronary Bypass/CABG, Heart Catheterization, Orthopedic Surgery Additional Past Surgical History / Comment(s): ORIF LEFT ANKLE, LACERATION REPAIR OF LEFT FOREARM,RT BREAST I&D, triple-vessel coronary artery bypass grafting and bioprosthetic aortic valve replacement 09/24/2018, drainage of hematoma and reconstruction of sternum 10/15/2018 Past Anesthesia/Blood Transfusion Reactions: No Reported Reaction Additional Past Anesthesia/Blood Transfusion Reaction / Comment(s): hx no blood transfusion Past Psychological History: No Psychological Hx Reported Additional Psychological History / Comment(s): Pt resides with his spouse. He uses no assistive device. He is not currently driving d/t this recent surgery. Smoking Status: Former smoker Past Alcohol Use History: None Reported Additional Past Alcohol Use History / Comment(s): Patient was smoker of 2 packs per day for 20 years about 5 years ago. He denies any marijuana or street drug or alcohol use. He worked in the past in an [employer]. He is currently living with his ex-. No pets in the home. Past Drug Use History: None Reported - Past Family History Mother Family Medical History: Cancer Additional Family Medical History / Comment(s): LUNG CANCER Father Family Medical History: No Reported History Medications and Allergies Home Medications Medication Instructions Recorded Confirmed Type Cholecalciferol [Vitamin D3] 2,000 unit PO DAILY@0900 08/12/18 10/23/18 History Acetaminophen Tab [Tylenol] 650 mg PO Q6HR PRN 10/08/18 10/23/18 History Nitroglycerin Sl Tabs [Nitrostat] 0.4 mg SUBLINGUAL Q5M PRN tab 10/11/18 10/23/18 Rx Aspirin 81 mg PO DAILY@0900 10/14/18 10/23/18 History Ipratropium-Albuterol Nebulize 3 ml INHALATION RT-Q8H 10/14/18 10/23/18 History [Duoneb 0.5 mg-3 mg/3 ml Soln] Pantoprazole [Protonix] 40 mg PO AC-BRKFST@0600 10/14/18 10/23/18 History Sennosides [Senokot] 8.6 mg PO DAILY@0900 10/14/18 10/23/18 History metFORMIN HCL [Glucophage] 500 mg PO BID@0900,1700 10/14/18 10/23/18 History Amoxic-Pot Clav 875-125Mg 1 tab PO Q12HR #10 tablet 10/22/18 10/23/18 Rx [Augmentin 875-125] Lisinopril [Zestril] 2.5 mg PO DAILY@1200 tab 10/22/18 10/23/18 Rx Amiodarone [Cordarone] 200 mg PO DAILY@0900 10/23/18 10/23/18 History Apixaban [Eliquis] 5 mg PO DIRECTED 10/23/18 10/23/18 History Atorvastatin [Lipitor] 20 mg PO HS@2100 10/23/18 10/23/18 History Furosemide [Lasix] 40 mg PO DAILY@0600 10/23/18 10/23/18 History INSULIN LISPRO (HumaLOG) [HumaLOG] See Protocol SQ ACHS 10/23/18 10/23/18 History Metoprolol Tartrate [Lopressor] 75 mg PO BID@0900,2100 10/23/18 10/23/18 History Potassium Chloride ER [K-Dur 10] 10 meq PO DAILY@0900 10/23/18 10/23/18 History predniSONE 40 mg PO DAILY@0900 10/23/18 10/23/18 History Allergies Allergy/AdvReac Type Severity Reaction Status Date / Time No Known Allergies Allergy Verified 10/23/18 18:56 Physical Exam Vitals: Vital Signs Temp Pulse Pulse Resp BP BP Pulse Ox 10/24/18 08:00 97.4 F L 102 H 20 93/55 94 L 10/24/18 03:50 120 H 20 10/24/18 00:45 116 H 10/24/18 00:30 97.5 F L 122 H 20 100/70 98 10/24/18 00:00 72 18 10/23/18 23:55 97.5 F L 140 H 19 100/70 98 10/23/18 23:34 97.6 F 130 H 18 111/84 98 10/23/18 23:04 142 H 19 84/66 96 10/23/18 22:44 151 H 20 90/77 98 10/23/18 22:32 149 H 21 90/64 98 10/23/18 21:55 111 H 20 98/81 97 10/23/18 21:46 149 H 18 116/94 96 10/23/18 20:04 144 H 18 102/77 96 10/23/18 18:50 97.8 F 149 H 20 128/60 94 L Intake and Output 10/24/18 10/24/18 10/24/18 06:59 14:59 22:59 Intake Total 100 260 Output Total 800 Balance -700 260 Intake: Intake, IV Titration 100 20 Amount Diltiazem 125 mg In 20 Sodium Chloride 0.9% 100 ml @ 5 MG/HR 5 mls/hr IV .Q24H TAYO Rx#:[id number] Sodium Chloride 0.9% 1, 80 20 000 ml @ 20 mls/hr IV . Q24H TAYO Rx#:[id number] Oral 240 Output: Urine 800 Other: Voiding Method Urinal Weight 118.2 kg 117.7 kg PHYSICAL EXAMINATION: Patient is lying in the bed comfortably, no acute distress, awake alert and oriented.. HEENT: Normocephalic. Neck is supple. Pupils reactive. Nostrils clear. Oral cavity is moist. Ears reveal no drainage. Neck reveals no JVD, carotid bruits, or thyromegaly. CHEST EXAMINATION: Trachea is central. Symmetrical expansion. Bibasilar diminished air entry. Lung boone clear to auscultation and percussion. LifeVest in place. CARDIAC: Normal S1, S2 with no gallops. No murmurs . Irregularly irregular rhythm. ABDOMEN: Soft. Bowel sounds normal. No organomegaly. No abdominal bruits. Extremities: Trace edema. No clubbing or cyanosis Neurologically awake, alert, oriented x3 with well-coordinated movements. No focal deficits noted Skin: No rash or skin lesions. Psychiatric: Coperative. Nonsuicidal Musculoskeletal: No joint swelling or deformity. Normal range of motion. Results CBC & Chem 7: 10/23/18 19:05 10/23/18 19:05 Labs: Abnormal Lab Results - Last 24 Hours (Table) 10/23/18 10/23/18 10/23/18 Range/Units 19:05 19:05 19:05 RBC 3.60 L (4.30-5.90) m/uL Hgb 10.0 L (13.0-17.5) gm/dL Hct 31.9 L (39.0-53.0) % RDW 16.6 H (11.5-15.5) % Neutrophils # 8.7 H (1.3-7.7) k/uL Lymphocytes # 0.5 L (1.0-4.8) k/uL APTT (22.0-30.0) sec Glucose 123 H (74-99) mg/dL POC Glucose (mg/dL) (75-99) mg/dL CK-MB (CK-2) 2.5 H (0.0-2.4) ng/mL Troponin I 0.050 H* (0.000-0.034) ng/mL Total Protein 5.8 L (6.3-8.2) g/dL Albumin 3.2 L (3.5-5.0) g/dL 10/23/18 10/24/18 10/24/18 Range/Units 19:05 05:54 11:50 RBC (4.30-5.90) m/uL Hgb (13.0-17.5) gm/dL Hct (39.0-53.0) % RDW (11.5-15.5) % Neutrophils # (1.3-7.7) k/uL Lymphocytes # (1.0-4.8) k/uL APTT 21.6 L (22.0-30.0) sec Glucose (74-99) mg/dL POC Glucose (mg/dL) 110 H 104 H (75-99) mg/dL CK-MB (CK-2) (0.0-2.4) ng/mL Troponin I (0.000-0.034) ng/mL Total Protein (6.3-8.2) g/dL Albumin (3.5-5.0) g/dL Thrombosis Risk Factor Assmnt - DVT/VTE Prophylaxis DVT/VTE Prophylaxis: Pharmacologic Prophylaxis ordered - Choose All That Apply Each Factor Represents 1 point: Heart failure (<1month), Obesity (BMI >25) Each Risk Factor Represents 2 Points: Age 61-74 years Other congenital or acquired thrombophilia - If yes, enter type in comment: No Thrombosis Risk Factor Assessment Total Risk Factor Score: 4 Thrombosis Risk Factor Assessment Level: Moderate Risk Assessment and Plan Assessment: Atrial flutter with rapid ventricular rate. Recent history of CABG and aortic valve replacement and sternal reconstruction due to fluid collection. Paroxysmal atrial flutter. Anticoagulation was held during recent admission Hypertension Hyperlipidemia Diabetes type 2 COPD. Plan: Patient was initially started on Cardizem drip. Patient continues to be in atrial flutter. Patient was given IV amiodarone and amiodarone dose increased to 4 mg twice daily. Anticoagulation has been restarted with Eliquis 5 mg twice a day. Cardiology is on board. Planning for FAISAL and cardioversion. Further recommendations based on the clinical course. Prognosis is guarded. CT surgery is on board as well. Time with Patient: Greater than 30
[2018-10-25] MEDS: IPRATROPIUM-ALBUTEROL 3 ML NEB INHALATION SCH ×4 (00:10→23:35)
[2018-10-25 06:05] LABS: Glucose,Whole Blood 97 mg/dL (75-99)
[2018-10-25] MEDS: INSULIN ASPART (NovoLOG) 100 UNIT/ML VIAL SQ SCH ×4 (06:26→21:06)
[2018-10-25] MEDS: PANTOPRAZOLE 40 MG TABLET PO SCH (06:40)
[2018-10-25] MEDS: FUROSEMIDE 40 MG TAB PO SCH (06:41)
[2018-10-25] MEDS ORDERED: SODIUM CHLORIDE 0.9% 1,000 ML IV ONE (07:51)
[2018-10-25] MEDS ORDERED: MIDAZOLAM 2 MG/2 ML VIAL ONE (07:52)
[2018-10-25] MEDS ORDERED: LIDOCAINE 1% INJ 10MG/ML (20 ML MDV) ONE (07:52)
[2018-10-25] MEDS ORDERED: PROPOFOL 10 MG/ML 20 ML VIAL IV ONE (07:52)
[2018-10-25] MEDS: BENZOCAINE SPRAY 1 CAN MUCOUS MEM ONE ×2 (07:55→08:30)
[2018-10-25] MEDS ORDERED: SODIUM CHLORIDE 0.9% 1,000 ML IV SCH (08:30)
[2018-10-25] MEDS: METOPROLOL TARTRATE 25 MG TAB PO SCH ×2 (09:07→21:06)
[2018-10-25] MEDS: AMOXIC-POT CLAV 875-125MG 1 EACH TAB PO SCH ×2 (09:07→21:06)
[2018-10-25] MEDS: metFORMIN 500 MG TAB PO SCH ×3 (09:07→16:19)
[2018-10-25] MEDS: POTASSIUM CHLORIDE ER 10 MEQ TAB.ER.PRT PO SCH (09:07)
[2018-10-25] MEDS: APIXABAN 5 MG TAB PO SCH ×2 (09:08→21:06)
[2018-10-25] MEDS: CHOLECALCIFEROL 1,000 UNIT TAB PO SCH (09:08)
[2018-10-25] MEDS: ASPIRIN 81 MG PO SCH (09:08)
[2018-10-25] MEDS: SENNOSIDES 8.6 MG TAB PO SCH (09:08)
[2018-10-25] MEDS: AMIODARONE 200 MG TAB PO SCH ×2 (09:08→21:06)
[2018-10-25] MEDS: predniSONE 20 MG TAB PO SCH (09:08)
--- NOTE | 2018-10-25 11:05 | P.PCN ---
Date of Procedure: 10/25/18 Preoperative Diagnosis: Atrial flutter Postoperative Diagnosis: Successful conversion to sinus rhythm Procedure(s) Performed: FAISAL followed by cardioversion Description of Procedure: This patient is admitted to the hospital with atrial flutter with a rapid ventricular response. Patient was treated with IV followed by by mouth amiodarone and also IV Cardizem. Patient continued to be in atrial flutter with a rapid ventricular response. A FAISAL cardioversion is requested by Dr. Messina. Patient was given IV sedation by department of anesthesia. After performing FAISAL, patient was prepped and draped for a cardioversion. Anterior posterior pads were applied. A 200 J shock was applied. The patient converted back to sinus rhythm. No immediate complications. Final impression: #1. Successful conversion from atrial flutter to sinus rhythm. Plan: Patient will be transferred to stepdown unit. Currently her by mouth medication be continued
--- NOTE | 2018-10-25 11:09 | P.TEE ---
Indications for Procedure(s): Rule out intracavitary thrombus before cardioversion Date of Procedure: 10/25/18 Preoperative Diagnosis: Atrial flutter, status post bypass surgery and aortic valve replacement Postoperative Diagnosis: No thrombus in the left atrium. Patient had surgical clipping of the left atrial appendage Description of Procedure(s): Patient was brought to the lab in a fasting state. He was given IV sedation by department of anesthesia. The throat was sprayed with Cetacaine. A Omni probe was introduced in the oropharynx and after a few attempts, was advanced into the esophagus without any difficulty. Multiple views were obtained. Patient tolerated the procedure well. Findings: The left atrium appears to be surgically clipped. There is a short stump and left atrial appendage which is free of any clot. The mitral valve shows mild regurgitation. The aortic valve seems to function normally. The interatrial septum appeared to be intact without any spontaneous shunt. However injection of saline bubble injections did show crossing of the bubbles from the right to the left, suggestive of presence of PFO. Left ankle function appear to be fair. Final impression: #1. No clot in the left atrial appendage. #2 PFO #3. S ystolic function #4. Normally functioning mitral and aortic valves
--- NOTE | 2018-10-25 12:01 | P.PN ---
Progress Note - Text Patient underwent FAISAL followed by electrical cardioversion by Dr. Leach today Short stump of the left atrial appendage is noted free of clot, mild mitral regurgitation LV function appeared normal Successful electrical cardioversion to sinus rhythm Impression Sustained atrial flutter I discussed this with the patient and in the future after 3-4 months of coronary artery bypass grafting and valve surgery I would recommend atrial flutter ablation Lifelong adequate ventilation
[2018-10-25] MEDS: SODIUM CHLORIDE 0.9% 1,000 ML IV SCH ×2 (12:14→22:26)
[2018-10-25] MEDS: LISINOPRIL 2.5 MG TAB PO SCH (12:15)
[2018-10-25 12:35] LABS: Glucose,Whole Blood 112 mg/dL (75-99)
--- NOTE | 2018-10-25 12:44 | P.PN ---
Subjective Progress Note Date: 10/25/18 Principal diagnosis: Recurrent atrial flutter. Previous medical history of recent readmission for mechanical obstruction of the sternum with drainage of hematoma and reconstruction of the sternum using Tritium plating system with postoperative acute blood loss anemia. Previous medical history of bicuspid aortic valve with moderate to severe aortic stenosis status post aortic valve replacement with 27 mm magna ease pericardial bioprosthesis, coronary artery disease with left main disease status post triple coronary artery bypass graft surgery, chronic diastolic dysfunction, hypertension, hyperlipidemia, morbid obesity, previous tobacco dependence, and mild COPD with FEV1 64% of predicted. POD #0 transesophageal echocardiogram revealing no clot in the stump of the left atrial appendage, successful cardioversion back to normal sinus rhythm Patient is currently sitting up in bed in no acute distress. Denies any chest pain or shortness of breath. No new complaints. Objective - Vital Signs Vital signs: Vital Signs Temp 97.5 F L 10/25/18 11:17 Pulse 84 10/25/18 11:17 Resp 20 10/25/18 11:17 BP 103/69 10/25/18 11:17 Pulse Ox 96 10/25/18 11:17 Intake & Output 10/24/18 10/25/18 10/25/18 18:59 06:59 18:59 Intake Total 260 150 70 Output Total 650 1100 Balance 260 -500 -1030 Weight 117.7 kg 118.1 kg Intake: IV 70 Intake, IV Titration 20 Amount Sodium Chloride 0.9% 1, 20 000 ml @ 20 mls/hr IV . Q24H [facility] Rx#:[id number] Oral 240 150 Output: Urine 650 1100 Other: Voiding Method Urinal # Voids 2 1 2 - Constitutional General appearance: Present: cooperative, no acute distress, obese - Respiratory Details: Lungs sounds diminished bilaterally. Respirations even, nonlabored. Currently on room air with oxygen saturation 93%. - Cardiovascular Details: S1, S2 present. Regular rate and rhythm, normal sinus rhythm on telemetry. Sternum stable. Palpable peripheral pulses bilaterally. Bilateral lower extremity edema present. No calf pain or tenderness noted. Thoravest in place with patient demonstrating appropriate use. Antiembolism stockings, SCDs present. - Gastrointestinal Gastrointestinal Comment(s): Abdomen soft, nontender, nondistended, obese. Active bowel sounds present 4 quadrants. Currently nothing by mouth. - Genitourinary Genitourinary Comment(s): Continues to void clear, yellow urine - Integumentary Integumentary Comment(s): Skin is warm and dry with evidence of good perfusion. Anterior chest incision well approximated and open to air. Right lower extremity EVH site well approximated without drainage. - Neurologic Neurologic: Present: CNII-XII intact - Musculoskeletal Musculoskeletal: Present: strength equal bilaterally - Psychiatric Psychiatric: Present: A&O x's 3, appropriate affect, intact judgment & insight - Allied health notes Allied health notes reviewed: nursing - Labs CBC & Chem 7: 10/23/18 19:05 10/23/18 19:05 Labs: Abnormal Lab Results - Last 24 Hours (Table) 10/24/18 10/24/18 10/25/18 Range/Units 17:10 20:33 12:14 POC Glucose (mg/dL) 104 H 114 H 112 H (75-99) mg/dL Assessment and Plan Assessment: 1. Recurrent atrial flutter, status post FAISAL and cardioversion with return to normal sinus rhythm 2. Recent admission for mechanical destruction of the sternum with drainage of hematoma and reconstruction of the sternum using Tritium plating system 10/15/2018 with postoperative acute blood loss anemia 3. History of bicuspid aortic valve with moderate to severe aortic stenosis status post aortic valve replacement 09/24/2018 4. History of coronary artery disease with left main disease status post triple coronary artery bypass graft surgery 09/24/2018 5. Chronic diastolic dysfunction 6. Hypertension 7. Hyperlipidemia 8. Morbid obesity 9. Previous tobacco dependence 10. Mild COPD with FEV1 64% of predicted Plan: 1. Continue aspirin, statin, amiodarone, Lopressor. 2. Continue Eliquis for anticoagulation. 3. Encourage incentive spirometry use 10 times every hour while awake. 4. Increase activity, ambulate in hallway. PT/OT/cardiac rehab following. 5. Will monitor labs and x-rays. 6. Patient should shower every day. Thoravest may be removed for shower, otherwise should be wearing around the clock. Please call cardiothoracic surgery if there are any problems or questions. 7. Patient may return to subacute rehab versus home with home care when okay with other services. He should follow-up in the office next 11/01/[address] Enriquez as scheduled. 8. Continue medical management per primary care service and cardiology. 9. We will continue to follow while hospitalized. Time with Patient: Greater than 30
[2018-10-25 16:49] LABS: Glucose,Whole Blood 155 mg/dL (75-99)
[2018-10-25 21:06] LABS: Glucose,Whole Blood 211 mg/dL (75-99)
[2018-10-25] MEDS: ATORVASTATIN 20 MG TAB PO SCH (21:06)
[2018-10-26 06:11] LABS: Glucose,Whole Blood 103 mg/dL (75-99)
[2018-10-26] MEDS: INSULIN ASPART (NovoLOG) 100 UNIT/ML VIAL SQ SCH ×4 (06:27→21:51)
--- NOTE | 2018-10-26 06:29 | XR ---
EXAMINATION TYPE: XR chest 2V DATE OF EXAM: 10/26/2018 HISTORY: post cardiac surgery. REFERENCE: Previous study dated 10/23/2018. FINDINGS: There has been a midline sternotomy. A right subclavian catheter is been removed. There is bibasilar atelectasis, worse on the left than the right. There are small, bilateral effusion s, worse on the left than right. The heart is mildly enlarged. IMPRESSION: CONTINUING POSTOPERATIVE CHANGE.
[2018-10-26] MEDS: FUROSEMIDE 40 MG TAB PO SCH (06:37)
[2018-10-26] MEDS: PANTOPRAZOLE 40 MG TABLET PO SCH (06:37)
[2018-10-26 07:27] LABS: Anisocytosis Slight; HCT 29.6 % (39.0-53.0); HGB 8.9 gm/dL (13.0-17.5); Hypochromasia Marked; MCH 26.2 pg (25.0-35.0); MCV 87.3 fL (80.0-100.0); Mean Platelet Volume 9.2; Platelet Count 300 k/uL (150-450); Poikilocytosis Slight; RBC 3.39 m/uL (4.30-5.90); WBC 8.3 k/uL (3.8-10.6)
[2018-10-26 07:53] LABS: Anion Gap 8 mmol/L; Blood Urea Nitrogen 23 mg/dL (9-20); Calcium 8.8 mg/dL (8.4-10.2); Carbon Dioxide 27 mmol/L (22-30); Chloride 102 mmol/L (98-107); Glucose 89 mg/dL (74-99); Sodium 137 mmol/L (137-145)
[2018-10-26] MEDS: metFORMIN 500 MG TAB PO SCH ×2 (08:32→17:35)
[2018-10-26] MEDS: AMOXIC-POT CLAV 875-125MG 1 EACH TAB PO SCH ×2 (08:32→21:51)
[2018-10-26] MEDS: POTASSIUM CHLORIDE ER 10 MEQ TAB.ER.PRT PO SCH (08:32)
[2018-10-26] MEDS: APIXABAN 5 MG TAB PO SCH ×2 (08:33→21:51)
[2018-10-26] MEDS: ASPIRIN 81 MG PO SCH (08:33)
[2018-10-26] MEDS: METOPROLOL TARTRATE 25 MG TAB PO SCH ×2 (08:33→21:51)
[2018-10-26] MEDS: predniSONE 20 MG TAB PO SCH (08:33)
[2018-10-26] MEDS: SENNOSIDES 8.6 MG TAB PO SCH (08:33)
[2018-10-26] MEDS: AMIODARONE 200 MG TAB PO SCH ×2 (08:33→21:51)
[2018-10-26] MEDS: CHOLECALCIFEROL 1,000 UNIT TAB PO SCH (08:33)
[2018-10-26] MEDS: IPRATROPIUM-ALBUTEROL 3 ML NEB INHALATION SCH ×3 (09:24→23:04)
[2018-10-26 11:40] LABS: Glucose,Whole Blood 119 mg/dL (75-99)
[2018-10-26] MEDS: LISINOPRIL 2.5 MG TAB PO SCH (11:52)
--- NOTE | 2018-10-26 11:52 | P.PN ---
Subjective Progress Note Date: 10/26/18 Principal diagnosis: Recurrent atrial flutter. Previous medical history of recent readmission for mechanical obstruction of the sternum with drainage of hematoma and reconstruction of the sternum using Tritium plating system with postoperative acute blood loss anemia. Previous medical history of bicuspid aortic valve with moderate to severe aortic stenosis status post aortic valve replacement with 27 mm magna ease pericardial bioprosthesis, coronary artery disease with left main disease status post triple coronary artery bypass graft surgery, chronic diastolic dysfunction, hypertension, hyperlipidemia, morbid obesity, previous tobacco dependence, and mild COPD with FEV1 64% of predicted. POD #1 transesophageal echocardiogram revealing no clot in the stump of the left atrial appendage, successful cardioversion back to normal sinus rhythm Patient is currently laying in bed in no acute distress. Denies any chest pain or shortness of breath. No new complaints. Objective - Vital Signs Vital signs: Vital Signs Temp 97.6 F 10/26/18 07:50 Pulse 68 10/26/18 09:34 Resp 16 10/26/18 07:50 BP 131/60 10/26/18 07:50 Pulse Ox 91 L 10/26/18 07:50 Intake & Output 10/25/18 10/26/18 10/26/18 18:59 06:59 18:59 Intake Total 410 120 Output Total 1100 225 Balance -690 -225 120 Weight 116.9 kg Intake: IV 50 Oral 360 120 Output: Urine 1100 225 Other: Voiding Method Urinal # Voids 2 1 - Constitutional General appearance: Present: cooperative, no acute distress, obese - Respiratory Details: Lungs sounds diminished bilaterally. Respirations even, nonlabored. Currently on room air with oxygen saturation 94%. - Cardiovascular Details: S1, S2 present. Regular rate and rhythm, normal sinus rhythm on telemetry. Sternum stable. Palpable peripheral pulses bilaterally. Bilateral lower extremity edema present. No calf pain or tenderness noted. Thoravest in place with patient demonstrating appropriate use. Antiembolism stockings, SCDs present. - Gastrointestinal Gastrointestinal Comment(s): Abdomen soft, nontender, nondistended, obese. Active bowel sounds present 4 quadrants. Tolerating diet - Genitourinary Genitourinary Comment(s): Continues to void clear, yellow urine - Integumentary Integumentary Comment(s): Skin is warm and dry with evidence of good perfusion. Anterior chest incision well approximated and open to air. Right lower extremity EVH site well approximated without drainage. - Neurologic Neurologic: Present: CNII-XII intact - Musculoskeletal Musculoskeletal: Present: gait normal, strength equal bilaterally - Psychiatric Psychiatric: Present: A&O x's 3, appropriate affect, intact judgment & insight - Allied health notes Allied health notes reviewed: nursing - Labs CBC & Chem 7: 10/26/18 06:33 10/26/18 06:33 Labs: Abnormal Lab Results - Last 24 Hours (Table) 10/25/18 10/25/18 10/25/18 Range/Units 12:14 16:18 21:04 RBC (4.30-5.90) m/uL Hgb (13.0-17.5) gm/dL Hct (39.0-53.0) % MCHC (31.0-37.0) g/dL RDW (11.5-15.5) % BUN (9-20) mg/dL POC Glucose (mg/dL) 112 H 155 H 211 H (75-99) mg/dL 10/26/18 10/26/18 10/26/18 Range/Units 06:08 06:33 06:33 RBC 3.39 L (4.30-5.90) m/uL Hgb 8.9 L (13.0-17.5) gm/dL Hct 29.6 L (39.0-53.0) % MCHC 30.0 L (31.0-37.0) g/dL RDW 18.0 H (11.5-15.5) % BUN 23 H (9-20) mg/dL POC Glucose (mg/dL) 103 H (75-99) mg/dL 10/26/18 Range/Units 11:34 RBC (4.30-5.90) m/uL Hgb (13.0-17.5) gm/dL Hct (39.0-53.0) % MCHC (31.0-37.0) g/dL RDW (11.5-15.5) % BUN (9-20) mg/dL POC Glucose (mg/dL) 119 H (75-99) mg/dL - Imaging and Cardiology Chest x-ray: report reviewed, image reviewed Assessment and Plan Assessment: 1. Recurrent atrial flutter, status post FAISAL and cardioversion with return to normal sinus rhythm 2. Recent admission for mechanical destruction of the sternum with drainage of hematoma and reconstruction of the sternum using Tritium plating system 10/15/2018 with postoperative acute blood loss anemia 3. History of bicuspid aortic valve with moderate to severe aortic stenosis status post aortic valve replacement 09/24/2018 4. History of coronary artery disease with left main disease status post triple coronary artery bypass graft surgery 09/24/2018 5. Chronic diastolic dysfunction 6. Hypertension 7. Hyperlipidemia 8. Morbid obesity 9. Previous tobacco dependence 10. Mild COPD with FEV1 64% of predicted Plan: 1. Continue aspirin, statin, amiodarone, Lopressor. 2. Continue Eliquis for anticoagulation. 3. Encourage incentive spirometry use 10 times every hour while awake. 4. Increase activity, ambulate in hallway. PT/OT/cardiac rehab following. 5. Will monitor labs and x-rays. 6. Patient should shower every day. Thoravest may be removed for shower, otherwise should be wearing around the clock. Please call cardiothoracic surgery if there are any problems or questions. 7. Patient may return to subacute rehab versus home with home care when okay with other services. He should follow-up in the office next 11/01/[address] Enriquez as scheduled. 8. Continue medical management per primary care service and cardiology. . Time with Patient: Greater than 30
--- NOTE | 2018-10-26 12:26 | P.PN ---
Subjective Progress Note Date: 10/26/18 IMPRESSION / ASSESSMENT: Sustained atrial flutter status post cardioversion, now in sinus rhythm Coronary artery disease status post CABG, aortic valve replacement, redo sternotomy due to fluid collection Typical a flutter with RVR on presentation, paroxysmal atrial flutter Hypertension Hyperlipidemia Diabetes mellitus type 2 PLAN: Recommend atrial flutter ablation 3-4 months after coronary artery bypass grafting and valve surgery Lifelong anticoagulation Continue amiodarone 400 mg twice daily, Lopressor 75 mg twice daily, eliquis 5 mg twice daily Continue aspirin 81 mg daily, Lipitor 20 mg at bedtime, Lasix 40 mg daily, lisinopril 2.5 mg daily Patient is cleared for discharge from cardiology. HPI Patient has been in a sinus rhythm status post cardioversion. FAISAL found no thrombus in the right atrium. Surgical clipping of the left atrial appendage. Presence of PFO. Normal functioning mitral and aortic valves. Repeat chest x- ray shows continuing postop change. He is currently denying any chest pain or palpitations. He denies any shortness of breath. He has some mild discomfort in his chest at the surgical site. Heart rate is running in the 60s and 80s. He continues to have lower extremity edema. He states in general he is feeling better as this is the first day he has been able to sleep. Repeat lab work shows a hemoglobin of 8.9, creatinine 0.86. Magnesium 2. Potassium 4. EXAMINATION: Gen: This is a 68-year-old obese male. He is resting in bed and appears to be comfortable. No respiratory distress noted. Vital signs: Heart rate in the 60s to 80s, blood pressure 131/60, pulse ox 91% to 94% on room air. HEENT: Head is atraumatic, normocephalic. Pupils equal, round. Sclerae is anicteric. NECK: Supple. No JVD. No lymphadenopathy. No thyromegaly. LUNGS: Clear to auscultation. No wheezes or rhonchi. No intercostal retractions. No accessory muscle usage. HEART: Regular rate and rhythm. Systolic murmur. Thoravest in place. ABDOMEN: Soft. Bowel sounds are present. No masses. No tenderness. EXTREMITIES: Bilateral 2+ pedal edema. Gerry wraps in place. NEUROLOGICAL: Patient is awake, alert and oriented x3. Cranial nerves 2 through 12 are grossly intact. Nurse practitioner note has been reviewed, I agree with documented findings and plan of care. Patient was seen and examined. Objective - Vital Signs Vital signs: Vital Signs Temp 97.6 F 10/26/18 07:50 Pulse 68 10/26/18 09:34 Resp 16 10/26/18 07:50 BP 131/60 10/26/18 07:50 Pulse Ox 91 L 10/26/18 07:50 Intake & Output 10/25/18 10/26/18 10/26/18 18:59 06:59 18:59 Intake Total 410 120 Output Total 1100 225 Balance -690 -225 120 Weight 116.9 kg Intake: IV 50 Oral 360 120 Output: Urine 1100 225 Other: Voiding Method Urinal # Voids 2 1 - Labs CBC & Chem 7: 10/26/18 06:33 10/26/18 06:33 Labs: Abnormal Lab Results - Last 24 Hours (Table) 10/25/18 10/25/18 10/25/18 Range/Units 12:14 16:18 21:04 RBC (4.30-5.90) m/uL Hgb (13.0-17.5) gm/dL Hct (39.0-53.0) % MCHC (31.0-37.0) g/dL RDW (11.5-15.5) % BUN (9-20) mg/dL POC Glucose (mg/dL) 112 H 155 H 211 H (75-99) mg/dL 10/26/18 10/26/18 10/26/18 Range/Units 06:08 06:33 06:33 RBC 3.39 L (4.30-5.90) m/uL Hgb 8.9 L (13.0-17.5) gm/dL Hct 29.6 L (39.0-53.0) % MCHC 30.0 L (31.0-37.0) g/dL RDW 18.0 H (11.5-15.5) % BUN 23 H (9-20) mg/dL POC Glucose (mg/dL) 103 H (75-99) mg/dL
--- NOTE | 2018-10-26 12:35 | P.PN ---
Subjective Progress Note Date: 10/25/18 Principal diagnosis: Atrial flutter Patient is a 68-year-old female with a known history of recent coronary artery bypass graft and aortic valve replacement on 09/24/2018 and also abdominal reconstruction due to fluid collection, hypertension, hyperlipidemia, chronic CHF with diastolic dysfunction is currently at cardiac rehab was brought to the hospital due to heart racing of fast and irregular. Patient was seen by Dr. Don at the rehab and was sent to ER. EKG showed atrial flutter with rapid ventricular rate. Patient was started on Cardizem drip. Chest x-ray showed patchy atelectasis and pleural reaction at the lung bases unchanged compared to recent x-ray. Troponin 0.05, TSH within normal limits Patient was given IV amiodarone and dose increased to 400 mg twice daily by cardiology. And patient is a patient with Eliquis 5 mg twice daily. Patient continues to be in atrial flutter. 10/25/2018 Patient denied any complaints of chest pain or shortness of breath. No headache or dizziness lightheadedness. Patient underwent FAISAL with cardioversion. Currently converted to sinus rhythm. No thrombus noted in the FAISAL. Otherwise patient denied any complaints of nausea vomiting. No fever no chills. Current medications reviewed. Objective - Vital Signs Vital signs: Vital Signs Temp 98.3 F 10/25/18 19:40 Pulse 86 10/25/18 19:40 Resp 18 10/25/18 20:00 BP 102/66 10/25/18 19:40 Pulse Ox 94 L 10/25/18 19:40 Intake & Output 10/25/18 10/25/18 10/26/18 06:59 18:59 06:59 Intake Total 150 410 Output Total 650 1100 Balance -500 -690 Weight 118.1 kg Intake: IV 50 Oral 150 360 Output: Urine 650 1100 Other: Voiding Method Urinal Urinal # Voids 1 2 - Exam PHYSICAL EXAMINATION: Patient is lying in the bed comfortably, no acute distress, awake alert and oriented.. HEENT: Normocephalic. Neck is supple. Pupils reactive. Nostrils clear. Oral cavity is moist. Ears reveal no drainage. Neck reveals no JVD, carotid bruits, or thyromegaly. CHEST EXAMINATION: Trachea is central. Symmetrical expansion. Bibasilar diminished air entry. Lung boone clear to auscultation and percussion. LifeVest in place. CARDIAC: Normal S1, S2 with no gallops. No murmurs . ABDOMEN: Soft. Bowel sounds normal. No organomegaly. No abdominal bruits. Extremities: Trace edema. No clubbing or cyanosis Neurologically awake, alert, oriented x3 with well-coordinated movements. No focal deficits noted Skin: No rash or skin lesions. Psychiatric: Coperative. Nonsuicidal Musculoskeletal: No joint swelling or deformity. Normal range of motion. - Labs CBC & Chem 7: 10/26/18 06:33 10/26/18 06:33 Labs: Abnormal Lab Results - Last 24 Hours (Table) 10/25/18 10/25/18 10/25/18 Range/Units 12:14 16:18 21:04 POC Glucose (mg/dL) 112 H 155 H 211 H (75-99) mg/dL Assessment and Plan Assessment: Atrial flutter with rapid ventricular rate. Status post FAISAL and cardioversion. Currently maintaining sinus rhythm. Recent history of CABG and aortic valve replacement and sternal reconstruction due to fluid collection. Paroxysmal atrial flutter. Anticoagulation was held during recent admission Hypertension Hyperlipidemia Diabetes type 2 COPD. Plan: Patient was initially started on Cardizem drip. Patient was given IV amiodarone and amiodarone dose increased to 400 mg twice daily. Anticoagulation has been restarted with Eliquis 5 mg twice a day. Cardiology is on board. Patient is status post FAISAL and cardioversion. Currently back to sinus rhythm. Follow closely. Further recommendations based on the clinical course. Prognosis is guarded. CT surgery is on board as well. Time with Patient: Greater than 30
[2018-10-26 16:34] LABS: Glucose,Whole Blood 183 mg/dL (75-99)
[2018-10-26] MEDS: ATORVASTATIN 20 MG TAB PO SCH (21:51)
[2018-10-26 22:06] LABS: Glucose,Whole Blood 170 mg/dL (75-99)
--- NOTE | 2018-10-27 01:41 | P.PN ---
Subjective Progress Note Date: 10/26/18 Principal diagnosis: Atrial flutter Patient is a 68-year-old female with a known history of recent coronary artery bypass graft and aortic valve replacement on 09/24/2018 and also abdominal reconstruction due to fluid collection, hypertension, hyperlipidemia, chronic CHF with diastolic dysfunction is currently at cardiac rehab was brought to the hospital due to heart racing of fast and irregular. Patient was seen by Dr. Don at the rehab and was sent to ER. EKG showed atrial flutter with rapid ventricular rate. Patient was started on Cardizem drip. Chest x-ray showed patchy atelectasis and pleural reaction at the lung bases unchanged compared to recent x-ray. Troponin 0.05, TSH within normal limits Patient was given IV amiodarone and dose increased to 400 mg twice daily by cardiology. And patient is a patient with Eliquis 5 mg twice daily. Patient continues to be in atrial flutter. 10/25/2018 Patient denied any complaints of chest pain or shortness of breath. No headache or dizziness lightheadedness. Patient underwent FAISAL with cardioversion. Currently converted to sinus rhythm. No thrombus noted in the FIASAL. Otherwise patient denied any complaints of nausea vomiting. No fever no chills. 10/26/2018 Patient is sitting on the chair comfortably. No complaints of chest pain or shortness of breath. No nausea vomiting or abdominal pain. No dizziness or lightheadedness. Patient remained on sinus rhythm today. Continued on amiodarone 400 mg twice daily. Patient is on LifeVest. No nausea. No fever no chills. No other acute overnight issues. Current medications reviewed. Objective - Vital Signs Vital signs: Vital Signs Temp 98.6 F 10/26/18 19:45 Pulse 68 10/26/18 23:04 Resp 18 10/26/18 19:45 BP 91/60 10/26/18 19:45 Pulse Ox 94 L 10/26/18 23:05 Intake & Output 10/26/18 10/26/18 10/27/18 06:59 18:59 06:59 Intake Total 600 Output Total 225 Balance -225 600 Weight 116.9 kg Intake: Oral 600 Output: Urine 225 Other: Voiding Method Urinal # Voids 1 - Exam PHYSICAL EXAMINATION: Patient is lying in the bed comfortably, no acute distress, awake alert and oriented.. HEENT: Normocephalic. Neck is supple. Pupils reactive. Nostrils clear. Oral cavity is moist. Ears reveal no drainage. Neck reveals no JVD, carotid bruits, or thyromegaly. CHEST EXAMINATION: Trachea is central. Symmetrical expansion. Bibasilar diminished air entry. Lung boone clear to auscultation and percussion. LifeVest in place. CARDIAC: Normal S1, S2 with no gallops. No murmurs . ABDOMEN: Soft. Bowel sounds normal. No organomegaly. No abdominal bruits. Extremities: Trace edema. No clubbing or cyanosis Neurologically awake, alert, oriented x3 with well-coordinated movements. No focal deficits noted Skin: No rash or skin lesions. Psychiatric: Coperative. Nonsuicidal Musculoskeletal: No joint swelling or deformity. Normal range of motion. - Labs CBC & Chem 7: 10/26/18 06:33 10/26/18 06:33 Labs: Abnormal Lab Results - Last 24 Hours (Table) 10/26/18 10/26/18 10/26/18 Range/Units 06:08 06:33 06:33 RBC 3.39 L (4.30-5.90) m/uL Hgb 8.9 L (13.0-17.5) gm/dL Hct 29.6 L (39.0-53.0) % MCHC 30.0 L (31.0-37.0) g/dL RDW 18.0 H (11.5-15.5) % BUN 23 H (9-20) mg/dL POC Glucose (mg/dL) 103 H (75-99) mg/dL 10/26/18 10/26/18 10/26/18 Range/Units 11:34 16:20 21:47 RBC (4.30-5.90) m/uL Hgb (13.0-17.5) gm/dL Hct (39.0-53.0) % MCHC (31.0-37.0) g/dL RDW (11.5-15.5) % BUN (9-20) mg/dL POC Glucose (mg/dL) 119 H 183 H 170 H (75-99) mg/dL Assessment and Plan Assessment: Atrial flutter with rapid ventricular rate. Status post FAISAL and cardioversion. Currently maintaining sinus rhythm. Recent history of CABG and aortic valve replacement and sternal reconstruction due to fluid collection. Paroxysmal atrial flutter. Anticoagulation was held during recent admission Hypertension Hyperlipidemia Diabetes type 2 COPD. Plan: Patient was initially started on Cardizem drip. Patient was given IV amiodarone and amiodarone dose increased to 400 mg twice daily. Anticoagulation has been restarted with Eliquis 5 mg twice a day. Cardiology is on board. Continue with antibiotics and prednisone. Patient is status post FAISAL and cardioversion. Currently back to sinus rhythm. Follow closely. Further recommendations based on the clinical course. Prognosis is guarded. CT surgery is on board as well. Time with Patient: Greater than 30
[2018-10-27 05:48] LABS: Glucose,Whole Blood 119 mg/dL (75-99)
[2018-10-27] MEDS: PANTOPRAZOLE 40 MG TABLET PO SCH (05:48)
[2018-10-27] MEDS: FUROSEMIDE 40 MG TAB PO SCH (05:48)
[2018-10-27] MEDS: INSULIN ASPART (NovoLOG) 100 UNIT/ML VIAL SQ SCH ×4 (05:50→20:56)
[2018-10-27] MEDS: IPRATROPIUM-ALBUTEROL 3 ML NEB INHALATION SCH ×3 (07:35→23:26)
[2018-10-27] MEDS: AMIODARONE 200 MG TAB PO SCH ×2 (08:28→20:56)
[2018-10-27] MEDS: predniSONE 20 MG TAB PO SCH (08:28)
[2018-10-27] MEDS: SENNOSIDES 8.6 MG TAB PO SCH (08:28)
[2018-10-27] MEDS: POTASSIUM CHLORIDE ER 10 MEQ TAB.ER.PRT PO SCH (08:28)
[2018-10-27] MEDS: METOPROLOL TARTRATE 25 MG TAB PO SCH ×2 (08:29→20:56)
[2018-10-27] MEDS: APIXABAN 5 MG TAB PO SCH ×2 (08:29→20:56)
[2018-10-27] MEDS: metFORMIN 500 MG TAB PO SCH ×2 (08:29→17:53)
[2018-10-27] MEDS: CHOLECALCIFEROL 1,000 UNIT TAB PO SCH (08:29)
[2018-10-27] MEDS: ASPIRIN 81 MG PO SCH (08:29)
--- NOTE | 2018-10-27 09:40 | P.PN ---
Subjective Progress Note Date: 10/27/18 Principal diagnosis: Recurrent atrial flutter. Previous medical history of recent readmission for mechanical obstruction of the sternum with drainage of hematoma and reconstruction of the sternum using Tritium plating system with postoperative acute blood loss anemia. Previous medical history of bicuspid aortic valve with moderate to severe aortic stenosis status post aortic valve replacement with 27 mm magna ease pericardial bioprosthesis, coronary artery disease with left main disease status post triple coronary artery bypass graft surgery, chronic diastolic dysfunction, hypertension, hyperlipidemia, morbid obesity, previous tobacco dependence, and mild COPD with FEV1 64% of predicted. POD #2 transesophageal echocardiogram revealing no clot in the stump of the left atrial appendage, successful cardioversion back to normal sinus rhythm Patient is currently sitting up in a recliner in no acute distress. Denies any chest pain or shortness of breath. No new complaints. He was supposed to go back to subacute rehab yesterday, however patient has insurance authorization so he will not be able to go until tomorrow. Objective - Vital Signs Vital signs: Vital Signs Temp 98.2 F 10/27/18 03:37 Pulse 68 10/27/18 07:48 Resp 20 10/27/18 03:37 BP 135/86 10/27/18 03:37 Pulse Ox 95 10/27/18 07:35 Intake & Output 10/26/18 10/27/18 10/27/18 18:59 06:59 18:59 Intake Total 600 Balance 600 Intake: Oral 600 Other: Voiding Method Urinal # Voids 1 - Constitutional General appearance: Present: cooperative, no acute distress, obese - Respiratory Details: Lungs sounds diminished bilaterally. Respirations even, nonlabored. Currently on room air with oxygen saturation 95%. - Cardiovascular Details: S1, S2 present. Regular rate and rhythm, normal sinus rhythm on telemetry. Sternum stable. Palpable peripheral pulses bilaterally. Bilateral lower extremity edema present. No calf pain or tenderness noted. Thoravest in place with patient demonstrating appropriate use. Antiembolism stockings, SCDs not currently on patient. - Gastrointestinal Gastrointestinal Comment(s): Abdomen soft, nontender, nondistended, obese. Active bowel sounds present 4 quadrants. Tolerating diet - Genitourinary Genitourinary Comment(s): Continues to void clear, yellow urine - Integumentary Integumentary Comment(s): Skin is warm and dry with evidence of good perfusion. Anterior chest incision well approximated and open to air. Right lower extremity EVH site well approximated without drainage. - Neurologic Neurologic: Present: CNII-XII intact - Musculoskeletal Musculoskeletal: Present: gait normal, strength equal bilaterally - Psychiatric Psychiatric: Present: A&O x's 3, appropriate affect, intact judgment & insight - Allied health notes Allied health notes reviewed: nursing - Labs CBC & Chem 7: 10/26/18 06:33 10/26/18 06:33 Labs: Abnormal Lab Results - Last 24 Hours (Table) 10/26/18 10/26/18 10/26/18 Range/Units 11:34 16:20 21:47 POC Glucose (mg/dL) 119 H 183 H 170 H (75-99) mg/dL 10/27/18 Range/Units 05:47 POC Glucose (mg/dL) 119 H (75-99) mg/dL Assessment and Plan Assessment: 1. Recurrent atrial flutter, status post FAISAL and cardioversion with return to normal sinus rhythm 2. Recent admission for mechanical destruction of the sternum with drainage of hematoma and reconstruction of the sternum using Tritium plating system 10/15/2018 with postoperative acute blood loss anemia 3. History of bicuspid aortic valve with moderate to severe aortic stenosis status post aortic valve replacement 09/24/2018 4. History of coronary artery disease with left main disease status post triple coronary artery bypass graft surgery 09/24/2018 5. Chronic diastolic dysfunction 6. Hypertension 7. Hyperlipidemia 8. Morbid obesity 9. Previous tobacco dependence 10. Mild COPD with FEV1 64% of predicted Plan: 1. Continue aspirin, statin, amiodarone, Lopressor. 2. Continue Eliquis for anticoagulation. 3. Encourage incentive spirometry use 10 times every hour while awake. 4. Increase activity, ambulate in hallway. PT/OT/cardiac rehab following. 5. Will monitor labs and x-rays. 6. Patient should shower every day. Thoravest may be removed for shower, otherwise should be wearing around the clock. Please call cardiothoracic surgery if there are any problems or questions. 7. Patient may return to subacute rehab versus home with home care when okay with other services. He should follow-up in the office next 11/01/[address] Enriquez as scheduled. 8. Continue medical management per primary care service and cardiology. . Time with Patient: Greater than 30
--- NOTE | 2018-10-27 10:15 | P.PN ---
Subjective Progress Note Date: 10/27/18 IMPRESSION / ASSESSMENT: Sustained atrial flutter status post cardioversion, now in sinus rhythm Coronary artery disease status post CABG, aortic valve replacement, redo sternotomy due to fluid collection Typical a flutter with RVR on presentation, paroxysmal atrial flutter Hypertension Hyperlipidemia Diabetes mellitus type 2 PLAN: Recommend atrial flutter ablation 3-4 months after coronary artery bypass grafting and valve surgery Lifelong anticoagulation Continue amiodarone 400 mg twice daily, Lopressor 75 mg twice daily, eliquis 5 mg twice daily Continue aspirin 81 mg daily, Lipitor 20 mg at bedtime, Lasix 40 mg daily, lisinopril 2.5 mg daily Patient is cleared for discharge from cardiology. Follow-up with Dr. Leach postdischarge HPI Patient has been in a sinus rhythm status post cardioversion. He has some mild discomfort in his chest at the surgical site. Heart rate is running in the 60s. He continues to have lower extremity edema. Patient is scheduled for discharge to rehab tomorrow. Patient denies any new complaints. EXAMINATION: Gen: This is a 68-year-old obese male. He is resting in bed and appears to be comfortable. No respiratory distress noted. Vital signs: Heart rate in the 60s, blood pressure 135/86, pulse ox 95% on room air. HEENT: Head is atraumatic, normocephalic. Pupils equal, round. Sclerae is anicteric. NECK: Supple. No JVD. No lymphadenopathy. No thyromegaly. LUNGS: Clear to auscultation. No wheezes or rhonchi. No intercostal retractions. No accessory muscle usage. HEART: Regular rate and rhythm. Systolic murmur. Thoravest in place. ABDOMEN: Soft. Bowel sounds are present. No masses. No tenderness. EXTREMITIES: Bilateral 2+ pedal edema. Gerry wraps in place. NEUROLOGICAL: Patient is awake, alert and oriented x3. Cranial nerves 2 through 12 are grossly intact. Nurse practitioner note has been reviewed, I agree with documented findings and plan of care. Patient was seen and examined. Objective - Vital Signs Vital signs: Vital Signs Temp 98.2 F 10/27/18 03:37 Pulse 68 10/27/18 07:48 Resp 20 10/27/18 03:37 BP 135/86 10/27/18 03:37 Pulse Ox 95 10/27/18 07:35 Intake & Output 10/26/18 10/27/18 10/27/18 18:59 06:59 18:59 Intake Total 600 Balance 600 Intake: Oral 600 Other: Voiding Method Urinal # Voids 1 - Labs CBC & Chem 7: 10/26/18 06:33 10/26/18 06:33 Labs: Abnormal Lab Results - Last 24 Hours (Table) 10/26/18 10/26/18 10/26/18 Range/Units 11:34 16:20 21:47 POC Glucose (mg/dL) 119 H 183 H 170 H (75-99) mg/dL 10/27/18 Range/Units 05:47 POC Glucose (mg/dL) 119 H (75-99) mg/dL
[2018-10-27 11:39] LABS: Glucose,Whole Blood 139 mg/dL (75-99)
[2018-10-27] MEDS: LISINOPRIL 2.5 MG TAB PO SCH (11:50)
[2018-10-27 16:36] LABS: Glucose,Whole Blood 205 mg/dL (75-99)
[2018-10-27 20:50] LABS: Glucose,Whole Blood 139 mg/dL (75-99)
[2018-10-27] MEDS: ATORVASTATIN 20 MG TAB PO SCH (20:56)
--- NOTE | 2018-10-27 23:57 | P.PN ---
Subjective Progress Note Date: 10/27/18 Principal diagnosis: Atrial flutter Patient is a 68-year-old female with a known history of recent coronary artery bypass graft and aortic valve replacement on 09/24/2018 and also abdominal reconstruction due to fluid collection, hypertension, hyperlipidemia, chronic CHF with diastolic dysfunction is currently at cardiac rehab was brought to the hospital due to heart racing of fast and irregular. Patient was seen by Dr. Don at the rehab and was sent to ER. EKG showed atrial flutter with rapid ventricular rate. Patient was started on Cardizem drip. Chest x-ray showed patchy atelectasis and pleural reaction at the lung bases unchanged compared to recent x-ray. Troponin 0.05, TSH within normal limits Patient was given IV amiodarone and dose increased to 400 mg twice daily by cardiology. And patient is a patient with Eliquis 5 mg twice daily. Patient continues to be in atrial flutter. 10/25/2018 Patient denied any complaints of chest pain or shortness of breath. No headache or dizziness lightheadedness. Patient underwent FAISAL with cardioversion. Currently converted to sinus rhythm. No thrombus noted in the FAISAL. Otherwise patient denied any complaints of nausea vomiting. No fever no chills. 10/26/2018 Patient is sitting on the chair comfortably. No complaints of chest pain or shortness of breath. No nausea vomiting or abdominal pain. No dizziness or lightheadedness. Patient remained on sinus rhythm today. Continued on amiodarone 400 mg twice daily. Patient is on LifeVest. No nausea. No fever no chills. No other acute overnight issues. 10/27/2018 Patient is currently sitting in the chair comfortably. No complaints of chest pain or shortness of breath. Leg swelling seems to be improved compared to yesterday. Patient is maintaining sinus rhythm after FAISAL and cardioversion. Continue on amiodarone 400 mg twice daily. Continue with antibiotics as per recent sternal infection. Prednisone dose will be Her down to 30 mg daily. No other active issues at this time. Anticipate discharged to rehab tomorrow. Current medications reviewed. Objective - Vital Signs Vital signs: Vital Signs Temp 98 F 10/27/18 16:00 Pulse 78 10/27/18 16:00 Resp 16 10/27/18 16:00 BP 100/62 10/27/18 16:00 Pulse Ox 96 10/27/18 16:00 Intake & Output 10/27/18 10/27/18 10/28/18 06:59 18:59 06:59 Intake Total 1400 Balance 1400 Intake: Oral 1400 Other: Voiding Method Urinal # Voids 2 - Exam PHYSICAL EXAMINATION: Patient is lying in the bed comfortably, no acute distress, awake alert and oriented.. HEENT: Normocephalic. Neck is supple. Pupils reactive. Nostrils clear. Oral cavity is moist. Ears reveal no drainage. Neck reveals no JVD, carotid bruits, or thyromegaly. CHEST EXAMINATION: Trachea is central. Symmetrical expansion. Bibasilar diminished air entry. Lung boone clear to auscultation and percussion. LifeVest in place. CARDIAC: Normal S1, S2 with no gallops. No murmurs . ABDOMEN: Soft. Bowel sounds normal. No organomegaly. No abdominal bruits. Extremities: Trace edema. No clubbing or cyanosis Neurologically awake, alert, oriented x3 with well-coordinated movements. No focal deficits noted Skin: No rash or skin lesions. Psychiatric: Coperative. Nonsuicidal Musculoskeletal: No joint swelling or deformity. Normal range of motion. - Labs CBC & Chem 7: 10/26/18 06:33 10/26/18 06:33 Labs: Abnormal Lab Results - Last 24 Hours (Table) 10/26/18 10/27/18 10/27/18 Range/Units 21:47 05:47 11:00 POC Glucose (mg/dL) 170 H 119 H 139 H (75-99) mg/dL 10/27/18 Range/Units 16:12 POC Glucose (mg/dL) 205 H (75-99) mg/dL Assessment and Plan Assessment: Atrial flutter with rapid ventricular rate. Status post FAISAL and cardioversion. Currently maintaining sinus rhythm. Recent history of CABG and aortic valve replacement and sternal reconstruction due to fluid collection. Paroxysmal atrial flutter. Anticoagulation was held during recent admission Hypertension Hyperlipidemia Diabetes type 2 COPD. Plan: Patient was initially started on Cardizem drip. Patient was given IV amiodarone and amiodarone dose increased to 400 mg twice daily. Anticoagulation has been restarted with Eliquis 5 mg twice a day. Cardiology is on board. Continue with antibiotics and prednisone. Patient is status post FAISAL and cardioversion. Currently back to sinus rhythm. Follow closely. Further recommendations based on the clinical course. Prognosis is guarded. CT surgery is on board as well. Time with Patient: Greater than 30
[2018-10-28 06:09] LABS: Glucose,Whole Blood 97 mg/dL (75-99)
[2018-10-28] MEDS: INSULIN ASPART (NovoLOG) 100 UNIT/ML VIAL SQ SCH ×3 (06:18→17:31)
[2018-10-28] MEDS: FUROSEMIDE 40 MG TAB PO SCH (06:25)
[2018-10-28] MEDS: PANTOPRAZOLE 40 MG TABLET PO SCH (06:25)
[2018-10-28] MEDS: IPRATROPIUM-ALBUTEROL 3 ML NEB INHALATION SCH ×2 (07:40→17:00)
[2018-10-28 07:46] VITALS: RESP 16; TEMP 97.7
[2018-10-28] MEDS ORDERED: predniSONE 10 MG TAB PO SCH (09:00)
--- NOTE | 2018-10-28 09:05 | P.PN ---
Subjective Progress Note Date: 10/28/18 Principal diagnosis: Recurrent atrial flutter. Previous medical history of recent readmission for mechanical obstruction of the sternum with drainage of hematoma and reconstruction of the sternum using Tritium plating system with postoperative acute blood loss anemia. Previous medical history of bicuspid aortic valve with moderate to severe aortic stenosis status post aortic valve replacement with 27 mm magna ease pericardial bioprosthesis, coronary artery disease with left main disease status post triple coronary artery bypass graft surgery, chronic diastolic dysfunction, hypertension, hyperlipidemia, morbid obesity, previous tobacco dependence, and mild COPD with FEV1 64% of predicted. POD #3 transesophageal echocardiogram revealing no clot in the stump of the left atrial appendage, successful cardioversion back to normal sinus rhythm Patient is currently sitting up in a recliner in no acute distress. Denies any chest pain or shortness of breath. No new complaints. Remains in normal sinus rhythm. He was supposed to go back to subacute rehab Sunday, however patient has insurance authorization requirements, hopefully authorization will be obtained today and he may go back to [facility]. Objective - Vital Signs Vital signs: Vital Signs Temp 97.7 F 10/28/18 07:42 Pulse 77 10/28/18 07:50 Resp 16 10/28/18 07:42 BP 99/53 10/28/18 07:42 Pulse Ox 96 10/28/18 07:42 Intake & Output 10/27/18 10/28/18 10/28/18 18:59 06:59 18:59 Intake Total 1400 100 360 Balance 1400 100 360 Weight 114.9 kg Intake: Oral 1400 100 360 Other: Voiding Method Toilet Urinal # Voids 2 1 - Constitutional General appearance: Present: cooperative, no acute distress, obese - Respiratory Details: Lungs sounds diminished bilaterally. Respirations even, nonlabored. Currently on room air with oxygen saturation 94%. Able to achieve 1250 mL on his incentive spirometry. - Cardiovascular Details: S1, S2 present. Regular rate and rhythm, normal sinus rhythm on telemetry. Sternum stable. Palpable peripheral pulses bilaterally. Bilateral lower extremity edema present. No calf pain or tenderness noted. Thoravest in place with patient demonstrating appropriate use. Antiembolism stockings, SCDs present. - Gastrointestinal Gastrointestinal Comment(s): Abdomen soft, nontender, nondistended, obese. Active bowel sounds present 4 quadrants. Tolerating diet - Genitourinary Genitourinary Comment(s): Continues to void clear, yellow urine - Integumentary Integumentary Comment(s): Skin is warm and dry with evidence of good perfusion. Anterior chest incision well approximated and open to air. Right lower extremity EVH site well approximated without drainage. - Neurologic Neurologic: Present: CNII-XII intact - Musculoskeletal Musculoskeletal: Present: gait normal, strength equal bilaterally - Psychiatric Psychiatric: Present: A&O x's 3, appropriate affect, intact judgment & insight - Allied health notes Allied health notes reviewed: nursing - Labs CBC & Chem 7: 10/26/18 06:33 10/26/18 06:33 Labs: Abnormal Lab Results - Last 24 Hours (Table) 10/27/18 10/27/18 10/27/18 Range/Units 11:00 16:12 20:49 POC Glucose (mg/dL) 139 H 205 H 139 H (75-99) mg/dL Assessment and Plan Assessment: 1. Recurrent atrial flutter, status post FAISAL and cardioversion with return to normal sinus rhythm 2. Recent admission for mechanical destruction of the sternum with drainage of hematoma and reconstruction of the sternum using Tritium plating system 10/15/2018 with postoperative acute blood loss anemia 3. History of bicuspid aortic valve with moderate to severe aortic stenosis status post aortic valve replacement 09/24/2018 4. History of coronary artery disease with left main disease status post triple coronary artery bypass graft surgery 09/24/2018 5. Chronic diastolic dysfunction 6. Hypertension 7. Hyperlipidemia 8. Morbid obesity 9. Previous tobacco dependence 10. Mild COPD with FEV1 64% of predicted Plan: 1. Continue aspirin, statin, amiodarone, Lopressor. 2. Continue Eliquis for anticoagulation. 3. Encourage incentive spirometry use 10 times every hour while awake. 4. Increase activity, ambulate in hallway. PT/OT/cardiac rehab following. 5. Will monitor labs and x-rays. 6. Patient should shower every day. Thoravest may be removed for shower, otherwise should be wearing around the clock. Please call cardiothoracic surgery if there are any problems or questions. 7. Patient may return to subacute rehab versus home with home care when insurance authorization obtained. He should follow-up in the office next 11/01/[address] Enriquez as scheduled. 8. Continue medical management per primary care service and cardiology. Time with Patient: Greater than 30
[2018-10-28] MEDS: POTASSIUM CHLORIDE ER 10 MEQ TAB.ER.PRT PO SCH (09:07)
[2018-10-28] MEDS: SENNOSIDES 8.6 MG TAB PO SCH (09:07)
[2018-10-28] MEDS: CHOLECALCIFEROL 1,000 UNIT TAB PO SCH (09:07)
[2018-10-28] MEDS: METOPROLOL TARTRATE 25 MG TAB PO SCH (09:08)
[2018-10-28] MEDS: APIXABAN 5 MG TAB PO SCH (09:08)
[2018-10-28] MEDS: ASPIRIN 81 MG PO SCH (09:08)
[2018-10-28] MEDS: AMIODARONE 200 MG TAB PO SCH (09:08)
[2018-10-28] MEDS: metFORMIN 500 MG TAB PO SCH ×2 (09:09→17:32)
[2018-10-28] MEDS: LISINOPRIL 2.5 MG TAB PO SCH (11:38)
[2018-10-28 11:39] LABS: Glucose,Whole Blood 105 mg/dL (75-99)
[2018-10-28 16:07] VITALS: BP 118/61
[2018-10-28 16:27] LABS: Glucose,Whole Blood 252 mg/dL (75-99)
--- NOTE | 2018-10-28 16:43 | DS ---
DISCHARGE SUMMARY DATE OF ADMISSION: October 23, 2018. DATE OF DISCHARGE: October 28, 2018. FINAL DIAGNOSES: 1. Atrial flutter fibrillation, rapid ventricular rate, status post cardioversion, now in sinus rhythm. The patient now in sinus rhythm. 2. Chronic congestive heart failure from diastolic dysfunction. 3. Coronary artery disease recent coronary bypass and aortic valve replacement with a prosthetic valve for a bicuspid aortic valve. 4. Essential hypertension. 5. Hyperlipidemia. 6. Obesity. 7. Chronic obstructive pulmonary disease. 8. Recent hematoma and hemopericardium. 9. Patent foramen ovale. HOSPITAL COURSE: This is a patient who recently had a coronary bypass and aortic valve replacement, prosthetic valve, and also had CHF exacerbation. Recently was in the hospital with a hemopericardium and hematoma was removed from the sternal site. Now admitted with atrial flutter with rapid ventricular rate. Did have a FAISAL and underwent successful cardioversion. Dose of amiodarone was increased. Now patient is stable, feeling better. CONSULTATION: Cardiothoracic surgery Dr. Jain. Dr. Messina from Cardiology. PHYSICAL EXAMINATION: Temperature 97.7, pulse 74. Respiratory rate 16, blood pressure 99/53, pulse ox 96% on room air. Lungs fair entry. CARDIOVASCULAR: First and second sounds normal. Mild edema. INVESTIGATIONS: White count 8.3, hemoglobin 8.9, potassium 4.0, BUN 23, creatinine 0.86. HOME GO MEDICATIONS: 1. Vitamin D3 2000 units p.o. daily. 2. Tylenol 650 mg q.6h p.r.n. 3. Nitrostat 0.4 sublingual q.5 p.r.n. 4. Aspirin 81 mg p.o. daily. 5. DuoNeb q.8. 6. Protonix 40 mg before breakfast. 7. Senokot 8.6 mg p.o. daily. 8. Glucophage 500 mg p.o. b.i.d. 9. Augmentin 875/125 1 tab p.o. q.12. 10.Zestril 2.5 mg p.o. daily. 11.Lipitor 20 mg at bedtime. 12.Lasix 40 mg p.o. daily. 13.Humalog per scale. 14.Lopressor 75 mg p.o. b.i.d. 15.Potassium 10 mEq p.o. daily. 16.Prednisone taper. 17.Eliquis 5 mg p.o. b.i.d. 18.Cordarone 4 mg b.i.d. DISPOSITION: [facility]. FOLLOWUP: Follow up with Dr. Enriquez on November 01, 2018, follow up with Dr. Leach in 1 week. Follow up with Dr. Don on October 29, 2018. Labs: CBC, BMP in [address] Don. MMODL / IJN: [id number] /
[2018-10-28 17:13] VITALS: PULSE 84
[2018-10-28] MEDS ORDERED: IPRATROPIUM-ALBUTEROL 3 ML NEB INHALATION PRN (18:41)
[2018-10-28] MEDS ORDERED: IPRATROPIUM-ALBUTEROL 3 ML NEB INHALATION SCH (20:00)
--- NOTE | 2018-10-28 20:02 | P.PN ---
Subjective Patient is doing well. He underwent electrical cardioversion Sunday and is maintaining sinus rhythm. Previously he was in symptomatically atrial flutter with RVR He is now anticoagulated with ELIQUIS He sitting comfortably in a chair Breath sounds are clear no rhonchi no crackles Heart sounds are soft and regular Extremities warm there is mild edema Impression Atrial flutter with RVR Recent cardiac surgery Plan Continue oral amiodarone continue anticoagulation Reduce the dose of amiodarone after one month Follow-up with Dr. Leach Consider outpatient atrial flutter ablation for recurrent atrial flutter once he has healed from the surgery Lifelong anticoagulation Objective - Vital Signs Vital signs: Vital Signs Temp 97.7 F 10/28/18 07:42 Pulse 84 10/28/18 17:13 Resp 16 10/28/18 16:00 BP 118/61 10/28/18 16:00 Pulse Ox 97 10/28/18 17:01 Intake & Output 10/28/18 10/28/18 10/29/18 06:59 18:59 06:59 Intake Total 100 600 Balance 100 600 Weight 114.9 kg Intake: Oral 100 600 Other: Voiding Method Toilet Urinal # Voids 2 - Labs CBC & Chem 7: 10/26/18 06:33 10/26/18 06:33 Labs: Abnormal Lab Results - Last 24 Hours (Table) 10/27/18 10/28/18 10/28/18 Range/Units 20:49 11:31 16:23 POC Glucose (mg/dL) 139 H 105 H 252 H (75-99) mg/dL
== END 2018-10-28 17:43 | DRG 309 ==
LOC: EC 18:46 → 3SCARD 20:56
PROVIDERS: ADMIT Hospitalist; ATTEND Hospitalist
PROC: B24BZZ4 Ultrasonography of Heart with Aorta, Transesophageal (ICD-10-PCS; 2018-10-25)
PROC: 5A2204Z Restoration of Cardiac Rhythm, Single (ICD-10-PCS; principal; 2018-10-25 08:00)
DX: I48.3 Typical atrial flutter (principal); I50.32 Chronic diastolic (congestive) heart failure; J98.11 Atelectasis; Q21.1 Atrial septal defect; Z68.41 Body mass index [BMI] 40.0-44.9, adult; I48.0 Paroxysmal atrial fibrillation; I11.0 Hypertensive heart disease with heart failure; E66.01 Morbid (severe) obesity due to excess calories; J44.9 Chronic obstructive pulmonary disease, unspecified; E11.9 Type 2 diabetes mellitus without complications; E78.5 Hyperlipidemia, unspecified; I25.10 Atherosclerotic heart disease of native coronary artery without angina pectoris; Z79.01 Long term (current) use of anticoagulants; Z79.82 Long term (current) use of aspirin; Z79.899 Other long term (current) drug therapy; Z79.4 Long term (current) use of insulin; Z79.52 Long term (current) use of systemic steroids; Z95.1 Presence of aortocoronary bypass graft; Z95.3 Presence of xenogenic heart valve; Z87.891 Personal history of nicotine dependence; Z80.1 Family history of malignant neoplasm of trachea, bronchus and lung
CPT/HCPCS: 36415; 71046; 80048; 80053; 82553; 83735; 84443; 84484; 85025; 85027; 85610; 85730; 92960; 93005; 93312; 93320; 93325; 94640; 94760; 96361; 96365; 96366; 96375; 96376; 99285

== ENCOUNTER → 2019-05-08 | Outpatient (CLI) | payer MEDICARE ==
--- NOTE | 2019-05-08 15:24 | US ---
EXAMINATION TYPE: US liver DATE OF EXAM: 05/08/2019 COMPARISON: 10/09/2018 CLINICAL HISTORY: R74.8 abn levels of other serum enzymes. EXAM MEASUREMENTS: Liver Length: 18.5 cm Gallbladder Wall: 0.2 cm CBD: 0.5 cm Right Kidney: 11.6 x 4.0 x 5.8 cm Pancreas: Obscured by bowel gas Liver: heterogeneous with diminished visualization of the portal triads, most commonly related to hep atic steatosis. Enlarged size. Hypoechoic area adjacent to gallbladder measuring 2.0 x 3.0 x 1.6cm is seen. This likely represents focal fatty infiltration given the location and geographic appearance. Gallbladder: wnl Evidence for sonographic Taylor's sign: no CBD: wnl Right Kidney: wnl IMPRESSION: Sonographic findings most commonly related to hepatic steatosis, as seen on the prior of 10/09/2018. Correlate with liver function test results as ascites is seen in the prior exam and theref ore other hepatocellular disease is possible. No current ascites. Probable focal fatty sparing is als o seen in a typical location near the gallbladder fossa.
== END ==
LOC: RADUSWWP 14:36
PROVIDERS: ATTEND Family Medicine
DX: R74.8 Abnormal levels of other serum enzymes (principal)
CPT/HCPCS: 76705